=== PATIENT | female | born 1960 | race Caucasian/White ===

== ENCOUNTER 2016-04-01 17:51 | Emergency (ER) | payer MEDICARE, MEDICAID ==
[~2016-04-01] VITALS: Ht 160 cm; Wt 77.1 kg
[~2016-04-01 17:51] MED LIST: ACET-1697 PO; ACET-2267 PO; ACET325T49 PO; ALBU17AE23 IH; ALPR0.254 PO; AMOX1TAB12 PO; ARMO250T2 PO; ARMO250T3 PO; ASPI-983 PO; ATOR20TA66 PO; BENZ200C25 PO; BISA5TAB PO; CARV3.122 PO; CEFD300C3 PO; CEPH500C PO; CIPR-225 PO; CIPR500T21 PO; CLOP75TA28 PO; CLOP75TA69 PO; CYCL10TA9; CYCL10TA9 PO; DIPH1TAB25 PO; ENAL2.5T PO; EST025TD; ESTR100P26 MC; ESTR1TAB24 PO; ESTRIOL; ETD300C PO; FENO134C PO; FENO134C2 PO; HYDR-2997 PO; HYDR-34 PO; HYDR-3720 PO; HYDR-3729 PO; HYDR-3875 PO; HYDR118S10 PO; HYDR15SO8 PO; HYDR1TAB PO; HYDR200T46 PO; HYDR25TA4 PO; IBUP-1780 PO; IBUP800T26 PO; LANS15CA PO; LANS30CA PO; LATA2.5D5 OU; LEVO500T69 PO; MELO-195 PO; MELO-198 PO; MELO15TA39 PO; MELO7.5T PO; METO-333 PO; METO10TA3 PO; NICO4GUM31 BC; NITR-33 PO; NITR0.4T39 SL; OLME20TA21 PO; ONDA4TAB11 PO; OXYC-109; PANT40SU PO; PANT40TA PO; PANT40TA2 PO; PANT40TA3 PO; POTA20TA8 PO; PRD10T PO; PRD20T PO; PRED10TA PO; PRM25T PO; PROM25TA14 PO; RT-ALBUINH INH; TAMS0.4C98 PO; TETRACAINESUCKERS MT; TOPI25TA2 PO; TOPI50TA13 PO; TRM50T PO; VENL37.56 PO; VENL75CA55 PO; VENL75CA93 PO; [UNRECOGNIZED DRUG - OTHER]; [UNRECOGNIZED DRUG - OTHER]
--- OUTSIDE RECORDS SUMMARY | 2016-04-01 17:58 | XMS REPORT | Continuity of Care Document ---
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 Name Role Phone NO, LOCAL PHYSICIAN PCP Unavailable Insurance Providers Payer Name Policy Number Subscriber Name Relationship [employer] [id number] Carol High 18 Self / Same As Patient [facility] [id number] Carol High 18 Self / Same As Patient Advance Directives Directive Response Recorded Date/Time Advance Directives No 05/30/14 1:49pm Health Care Power of Etched Circuit Processor No 05/30/14 1:49pm Organ Donor No 05/30/14 1:49pm Resuscitation Status Full Code 05/30/14 1:49pm Chief Complaint and Reason for Visit Chief Complaint SEPSIS HYPOTENSION HYPOVOLEMIA N/V/D ARF Reason for Visit Urinary tract infection Acute renal failure Diarrhea Sepsis Nausea and vomiting Abdominal pain Hypotension Hypovolemia Urinary tract infection Problems Medical Problems Problem Onset Date Status Rib pain on right side Unknown Active Upper respiratory infection Unknown Active Urinary tract infection Unknown Active Acute renal failure Unknown Active Diarrhea Unknown Active Sepsis Unknown Active Nausea and vomiting Unknown Active Abdominal pain Unknown Active Hypotension Unknown Active Hypovolemia Unknown Active Urinary tract infection Unknown Active Medications Medication Dose Route Sig Days/Qty Instructions Order Date Discontinued Date Status Cyclobenzaprine HCl (Flexeril) 10/18/08 01/05/09 Discontinued Estradiol 10/18/08 01/05/09 Discontinued Meloxicam 7.5 Mg PO BEDTIME 10/18/08 05/30/14 Discontinued Acetaminophen/Hydrocodone Bitart 1 - 2 Each PO Q4HR PRN 20 Qty 01/05/09 Discontinued Promethazine HCl 1 Tab PO FOUR TIMES DAILY 20 Qty 10/19/08 01/05/09 Discontinued Venlafaxine HCl 37.5 Mg PO DAILY 01/05/09 05/30/14 Discontinued Oxycodone Hcl/Acetaminophen 01/05/09 06/10/09 Discontinued Promethazine HCl 1 Tab PO FOUR TIMES DAILY 20 Qty 01/05/09 06/10/09 Discontinued Cephalexin Monohydrate (Keflex) 1 Each PO THREE TIMES A DAY 11/04/09 11/16/09 Discontinued Acetaminophen/Hydrocodone Bitart 1 - 2 Each PO Q 4 - 6 HRS PRN 20 Qty 11/16/09 01/08/10 Discontinued Cyclobenzaprine HCl (Flexeril) 1 Each PO TID PRN 01/08/10 05/07/10 Discontinued Etodolac 300 Mg PO TWICE A DAY 14 Qty 01/08/10 05/07/10 Discontinued Albuterol 2 Puff IH EVERY 4HRS PRN SHORTNESS OF BREATH 05/09/10 Active Nitrofurantoin Macrocrystals 1 Each PO TWICE A DAY 14 Qty TAKE ONE BY MOUTH TWICE A 05/09/10 06/04/10 Discontinued Acetaminophen/Hydrocodone Bitart 1 - 2 Ea PO Q4HR PRN 20 Qty MOUTH EVERY 4HRS NEEDED FOR 05/09/10 09/08/12 Discontinued Nitrofurantoin Macrocrystals 1 Each PO TWICE A DAY 14 Qty 06/06/10 Discontinued Estriol 0.1 Gm MC 08/10/12 05/30/14 Discontinued Lansoprazole 15 Mg PO 08/10/12 02/08/14 Discontinued Hydroxychloroquine Sulfate 200 Mg PO TWICE A DAY 08/10/12 05/30/14 Discontinued [Estriol] 08/10/12 02/08/14 Discontinued Benzonatate (Tessalon Perles) 1 Each PO Q8HR PRN 20 Qty 08/10/1205/30 Discontinued Levofloxacin 1 Each PO DAILY 10 Days 08/10/12 02/08/14 Discontinued Prednisone 40 Mg PO DAILY 5 Days 08/10/12 05/30/14 Discontinued Tramadol HCl 50 Mg PO EVERY 4HRS 14 Qty 08/10/12 02/08/14 Discontinued Levofloxacin 1 Each PO DAILY 10 Qty 09/09/12 02/08/14 Discontinued [Benocar] 02/08/14 05/30/14 Discontinued [Mexotretholate] 02/08/14 05/30/14 Discontinued Acetaminophen/Hydrocodone Bitart 1 Each PO EVERY 6 HOURS PRN PAIN 14 Qty 02/08/14 05/30/14 Discontinued Estradiol 1 Mg PO BEDTIME 05/30/14 Active Meloxicam (Mobic) 15 Mg PO BEDTIME 05/30/14 06/02/14 Discontinued Pantoprazole Sodium 40 Mg PO BEDTIME 05/30/14 Active Lansoprazole 30 Mg PO BEDTIME 05/30/14 Active Prednisone 10 Mg PO DAILY 05/30/14 Active Venlafaxine Hcl 75 Mg PO BEDTIME 05/30/14 Active Olmesartan 20 Mg PO BEDTIME 05/30/14 Active Armodafinil 125 Mg PO 0900,1600 TAKES 1/2 (250MG) TABLET 05/30/14 Active Alprazolam 0.25 Mg PO TWICE A DAY PRN ANXIETY 05/30/14 Active Cyclobenzaprine HCl (Flexeril) 10 Mg PO THREE TIMES A DAY PRN MUSCLE SPASMS 05/30/14 Active Topiramate 25 Mg PO TWICE A DAY PRN HEADACHE 05/30/14 Active Metoclopramide HCl (Reglan) 10 Mg PO FOUR TIMES DAILY 05/30/1406/02 Discontinued Meloxicam (Mobic) 1 Each PO DAILY 30 Qty 06/02/14 Active Social History Social History Problem Response Recorded Date/Time Alcohol Use Past History 05/30/2014 1:54pm Recreational Drug Use Y THC, COCAINE, "SPEED" IN PAST--DENIES IV USE 2014 1:54pm Recent Foreign Travel No 05/30/2014 3:37pm Recent Infectious Disease Exposure No 05/30/2014 1:54pm Hospitalization with Isolation Denies 06/02/2014 3:25pm Sexually Transmitted Disease No 05/30/2014 1:54pm Smoking Status Current Everyday Smoker 05/30/2014 1:59pm Do you dip or chew tobacco? No 05/30/2014 1:59pm Query Response Start Date Stop Date Smoking Status Current Everyday Smoker Hospital Discharge Instructions Patient Instructions Physician Instructions Prescription: Transmitted to Pharmacy Patient Instructions: pt needs to follow up with her PCP - Dr. Arora in about 10 -14 days. pt needs to start drinking gatorade 8 ounces twice daily pt nees to make a follow up appt with Dr. Pearce for 4 weeks from discharge. Resume Normal Activity: Yes Discharge Diet: Avoid Fatty Foods Diet for 24 Hours: No Alcohol Diet After 24 Hours: Clear Liquid if Nauseous Drink 6-8 Glasses of Fluid/Day: Yes Driving Instructions: No Driving for 1 Week Avoid ALL Tobacco Products: Smoking of Any Kind, Second Hand Smoke Symptoms to Reoprt to DrArsalan: Appetite Changes, Fever Over 101 Degrees F, Diarrhea(Persistant), Dizziness/Fainting, Nausea/Vomiting, Shortness of Breath, Weight Gain Over 2 Pounds For Problems or Questions: Contact Your Physician, Go to Emergency Room, Go to Quick Care Infection Signs and Symptoms: Temperature Above 101 F Plan of Care Discharge Date 06/02/14 12:12pm Disposition 30 STILL A PATIENT Instructions/Education Provided SMOKING CESSATION Dehydration (DC) Prescriptions See Medications Section Referrals (Unspecified) (Patient Education) Weekly (Wednesdays) Reason(s) for Referral: Next class begins on June 29, 2014 at 5:30 Call [phone] if unable to attend. MAXIMUS PEARCE DO (Unspecified) 07/14/14 Address: [address] [place] [address]&[place] [address] Reason(s) for Referral: Follow up with Dr Pearce July 14, 2014 at 10:30 Functional Status Query Response Date Recorded Patient Orientation Person Place Time Situation June 02, 2014 3:25pm Comprehension Ability Understands Concepts June 01, 2014 8:30am Allergies, Adverse Reactions, Alerts Allergen Type Severity Reaction Status Last Updated morphine Allergy Mild N/V Active 12/15/08 Codeine Allergy Mild Active 10/18/08 Pentazocine Allergy Mild N/V, HEAD ACHE Active 12/15/08 Immunizations Name Given Type Date of Influenza Vaccine 12/29/13 Historical Tetanus Booster (TDap) Unknown Historical pneumococcal polysaccharide PPV23 06/02/14 Administered pneumococcal polysaccharide PPV23 06/02/14 Administered Vital Signs Acute Vital Signs Vital Response Date/Time Temperature (Fahrenheit) 97.3 degrees F (97.6 - 99.5) Temperature (Calculated Celsius) 36.60732 degrees C (36.4 - 37.5) Temperature Source Tympanic Pulse Rate (adult) 52 bpm (60 - 90) Respiratory Rate 22 bpm (12 - 24) O2 Sat by Pulse Oximetry 92 % (88 - 100) Blood Pressure 163/90 mm Hg Pain Pain Intensity 0 Height (Feet) 5 feet Height (Inches) 2.00 inches Height (Calculated Centimeters) 157.783900 cm Weight (Pounds) 176 pounds Weight (Ounces) 0.9 oz Weight (Calculated Grams) 39701.772 gm Weight (Calculated Kilograms) 79.322606 kilograms Calculated BMI 29.99 Results Laboratory Results Test Name Result Units Flags Reference Collection Date/Time Result Date/ Time Comments White Blood Count 16.6 10^3/uL H 4.3-11.0 06/02/2014 4:58am 06/02/2014 5: 13am Red Blood Count 4.04 10^6/uL L 4.35-5.85 06/02/2014 4:58am 06/02/2014 5: 13am Hemoglobin 13.2 G/DL 11.5-16.0 06/02/2014 4:58am 06/02/2014 5:13am Hematocrit 38 % 35-52 06/02/2014 4:58am 06/02/2014 5:13am Mean Corpuscular Volume 95 FL 80-99 06/02/2014 4:58am 06/02/2014 5: 13am Mean Corpuscular Hemoglobin 33 PG 25-34 06/02/2014 4:58am 06/02/2014 5: 13am Mean Corpuscular Hemoglobin Concent 35 G/DL 32-36 06/02/2014 4:58am 07/2014 5:13am Red Cell Distribution Width 13.8 % 10.0-14.5 06/02/2014 4:58am 2014 5:13am Platelet Count 164 10^3/uL 130-400 06/02/2014 4:58am 06/02/2014 5:13am Mean Platelet Volume 11.2 FL H 7.4-10.4 06/02/2014 4:58am 06/02/2014 5: 13am Neutrophils (%) (Auto) 86 % H 42-75 06/02/2014 4:58am 06/02/2014 5:13am Lymphocytes (%) (Auto) 8 % L 12-44 06/02/2014 4:58am 06/02/2014 5:13am Monocytes (%) (Auto) 5 % 0-12 06/02/2014 4:58am 06/02/2014 5:13am Eosinophils (%) (Auto) 0 % 0-10 06/02/2014 4:58am 06/02/2014 5:13am Basophils (%) (Auto) 0 % 0-10 06/02/2014 4:58am 06/02/2014 5:13am Neutrophils # (Auto) 14.4 X 10^3 H 1.8-7.8 06/02/2014 4:58am 06/02/2014 5 :13am Lymphocytes # (Auto) 1.4 X 10^3 1.0-4.0 06/02/2014 4:58am 06/02/2014 5: 13am Monocytes # (Auto) 0.8 X 10^3 0.0-1.0 06/02/2014 4:58am 06/02/2014 5: 13am Eosinophils # (Auto) 0.0 10^3/uL 0.0-0.3 06/02/2014 4:58am 06/02/2014 5 :13am Basophils # (Auto) 0.1 10^3/uL 0.0-0.1 06/02/2014 4:58am 06/02/2014 5: 13am Neutrophils % (Manual) 74 % 05/30/2014 10:05am 05/30/2014 10:50am Band Neutrophils 11 % 05/30/2014 10:05am 05/30/2014 10:50am Lymphocytes % (Manual) 8 % 05/30/2014 10:05am 05/30/2014 10:50am Monocytes % (Manual) 5 % 05/30/2014 10:05am 05/30/2014 10:50am Eosinophils % (Manual) 2 % 05/30/2014 10:05am 05/30/2014 10:50am Basophils % (Manual) 0 % 05/30/2014 10:05am 05/30/2014 10:50am Blood Morphology Comment NORMAL 05/30/2014 10:05am 05/30/2014 10: 50am Urine Color YELLOW 05/30/2014 11:35am 05/30/2014 12:02pm Urine Clarity SLIGHTLY CLOUDY 05/30/2014 11:35am 05/30/2014 12: 02pm Urine pH 5 5-9 05/30/2014 11:35am 05/30/2014 12:02pm Urine Specific [place] 1.020 1.016-1.022 05/30/2014 11:35am 2014 12:02pm Urine Protein 3+ * NEGATIVE 05/30/2014 11:35am 05/30/2014 12:02pm Urine Glucose (UA) NEGATIVE NEGATIVE 05/30/2014 11:35am 05/30/2014 12 :02pm Urine RBC (Auto) 2+ * NEGATIVE 05/30/2014 11:35am 05/30/2014 12:02pm Urine Ketones NEGATIVE NEGATIVE 05/30/2014 11:35am 05/30/2014 12: 02pm Urine Nitrite NEGATIVE NEGATIVE 05/30/2014 11:35am 05/30/2014 12: 02pm Urine Bilirubin 1+ * NEGATIVE 05/30/2014 11:35am 05/30/2014 12:05pm ICTOTEST NEGATIVE Urine Urobilinogen NORMAL MG/DL NORMAL 05/30/2014 11:35am 05/30/2014 12 :02pm Urine Leukocyte Esterase 1+ * NEGATIVE 05/30/2014 11:35am 05/30/2014 12 :02pm Urine RBC 0-2 /HPF 05/30/2014 11:35am 05/30/2014 12:02pm Urine WBC 5-10 /HPF * 05/30/2014 11:35am 05/30/2014 12:02pm Urine Bacteria FEW /HPF * 05/30/2014 11:35am 05/30/2014 12:02pm Urine Squamous Epithelial Cells 10-25 /HPF * 05/30/2014 11:35am 2014 12:02pm Urine Crystals NONE /LPF 05/30/2014 11:35am 05/30/2014 12:02pm Urine Casts PRESENT /LPF 05/30/2014 11:35am 05/30/2014 12:02pm Urine Granular Casts 2-5 /LPF * 05/30/2014 11:35am 05/30/2014 12:02pm Urine Mucus NEGATIVE /LPF 05/30/2014 11:35am 05/30/2014 12:02pm Urine Culture Indicated YES 05/30/2014 11:35am 05/30/2014 12:02pm Sodium Level 138 MMOL/L 135-145 06/02/2014 4:58am 06/02/2014 5:48am Potassium Level 4.8 MMOL/L 3.6-5.0 06/02/2014 4:58am 06/02/2014 5:48am Chloride Level 110 MMOL/L H 98-107 06/02/2014 4:58am 06/02/2014 5:48am Carbon Dioxide Level 18 MMOL/L L 21-32 06/02/2014 4:58am 06/02/2014 5: 48am Blood Urea Nitrogen 25 MG/DL H 7-18 06/02/2014 4:58am 06/02/2014 5:48am Creatinine 0.95 MG/DL 0.60-1.30 06/02/2014 4:58am 06/02/2014 5:48am BUN/Creatinine Ratio 26 06/02/2014 4:58am 06/02/2014 5:48am Estimat Glomerular Filtration Rate > 60 06/02/2014 4:58am 2014 5:48am GFR INTERPRETIVE DATA UNITS FOR ESTIMATED GFR (eGFR): mL/min/1.73 M2 REFERENCE RANGE FOR ESTIMATED GFR (eGFR) eGFR NORMAL eGFR >60 MODERATELY DECREASED eGFR 30-59 SEVERLY DECREASED eGFR 15-29 KIDNEY FAILURE <15 (OR DIALYSIS) Glucose Level 139 MG/DL H 70-105 06/02/2014 4:58am 06/02/2014 5:48am Calcium Level 9.0 MG/DL 8.5-10.1 06/02/2014 4:58am 06/02/2014 5:48am Phosphorus Level 2.9 MG/DL 2.3-4.7 06/02/2014 4:58am 06/02/2014 5:48am Magnesium Level 2.1 MG/DL 1.8-2.4 06/02/2014 4:58am 06/02/2014 5:48am Total Bilirubin 0.8 MG/DL 0.1-1.0 06/01/2014 5:39am 06/01/2014 6:58am Direct Bilirubin 0.4 MG/DL H 0.0-0.3 06/01/2014 5:39am 06/01/2014 6:58am Indirect Bilirubin 0.4 MG/DL 06/01/2014 5:39am 06/01/2014 6:58am Alkaline Phosphatase 252 U/L H 40-136 06/01/2014 5:39am 06/01/2014 6: 58am Aspartate Amino Transf (AST/SGOT) 58 U/L H 5-34 06/01/2014 5:39am 2014 6:58am Alanine Aminotransferase (ALT/SGPT) 114 U/L H 0-55 06/01/2014 5:39am 06/2014 6:58am Total Creatine Kinase 132 U/L 29-168 05/31/2014 5:05am 05/31/2014 5: 41am Total Protein 5.5 G/DL L 6.4-8.2 06/01/2014 5:39am 06/01/2014 6:58am Albumin 2.8 G/DL L 3.2-4.5 06/01/2014 5:39am 06/01/2014 6:58am Lipase 26 U/L 8-78 05/30/2014 10:05am 05/30/2014 10:48am Lactic Acid Level 1.1 MMOL/L 0.5-2.2 05/30/2014 10:05am 05/30/2014 10: 35am Vancomycin Level Trough 19.1 UG/ML 10.0-20.0 06/01/2014 9:15am 2014 9:47am Procedures No known history of procedures. Encounters Encounter Location Date/Time Admitted Inpatient [facility] 05/30/14 12:41pm Recent Diagnosis Urinary tract infection Acute renal failure Diarrhea Sepsis Nausea and vomiting Abdominal pain Hypotension Hypovolemia Urinary tract infection
--- NOTE | 2016-04-01 18:00 | ED Chest Pain ---
General Stated Complaint: CP,SOA Source: patient, RN notes reviewed Exam Limitations: no limitations History of Present Illness Time seen by provider: 18:00 Initial Comments chest pain and dyspnea since this AM Timing/Duration: intermittent, other (10 hours) Severity/Quality: moderate (09/07) Location: other (right side chest) Radiation: no radiation Activities at Onset: other (coughing) Prior CP/Workup: no prior cardiac workup Modifying Factors: worse with coughing, improves with other (none) ASA po FRICKERTRON CHECKER: No NTG SL FRICKERTRON CHECKER: No Associated Symptoms: shortness of breath Allergies and Home Medications Allergies Coded Allergies: sulfamethoxazole (Verified Allergy, Intermediate, VOMITTING/MIGRAINE, ) trimethoprim (Verified Allergy, Intermediate, VOMITTING/MIGRAINE, 03/14/16 ) codeine (Unverified Allergy, Mild, TAKES HYDROCODONE AT HOME, 07/04/14) morphine (Unverified Adverse Reaction, Mild, N/V, 07/04/14) pentazocine (Unverified Adverse Reaction, Mild, N/V, HEAD ACHE, 07/04/14) Home Medications Acetaminophen 325 Mg Tablet 650 MG PO Q4H PRN PRN PAIN (Reported) TAKES 2 (325 MG) TABLETS Albuterol Sulfate 18 Gm Hfa.aer.ad 2 PUFF INH EVERY 4-6 HOURS PRN PRN SHORTNESS OF BREATH (Reported) Atorvastatin Calcium 20 Mg Tablet 20 MG PO BID (Reported) Bisacodyl 5 Mg Tablet 5 MG PO PRN PRN PRN CONSTIPATION (Reported) Cefdinir 300 Mg Capsule #14 300 MG PO BID Prescribed by: ADAMS LOREDO on 04/01/162043 Ciprofloxacin HCl 500 Mg Tablet #14 500 MG PO BID Prescribed by: LISA VIEIRA on 03/19/16 1500 Enalapril Maleate 2.5 Mg Tablet 2.5 MG PO DAILY (Reported) Estradiol 1 Mg Tablet 1 MG PO HS (Reported) Fenofibrate,Micronized 134 Mg Capsule 134 MG PO HS (Reported) Hydrochlorothiazide 25 Mg Tablet 25 MG PO DAILY (Reported) Hydrocodone/Acetaminophen 1 Each Tablet #30 1-2 EACH PO Q4H PRN PRN PAIN Prescribed by: LISA VIEIRA on 03/19/16 1500 Hydrocodone/Acetaminophen 15 Ml Solution #120 10 ML PO Q4H PRN PRN PAIN Prescribed by: MURALI TRIVEDI on 03/20/16 1429 Lansoprazole 30 Mg Capsule.dr 30 MG PO DAILY (Reported) Meloxicam 15 Mg Tablet 15 MG PO HS (Reported) Metoprolol Tartrate 25 Mg Tablet 12.5 MG PO BID (Reported) TAKES 1/2 OF A (25 MG) TABLET Nicotine Polacrilex 4 Mg Gum 4 MG BC PRN (Reported) Nitroglycerin 0.4 Mg Tab.subl 0.4 MG SL PRN PRN PRN CHEST PAIN (Reported) Potassium Chloride 20 Meq Tab.er.prt 40 MEQ PO BID (Reported) Prednisone 10 Mg Tab 10 MG PO DAILY (Reported) Promethazine HCl 25 Mg Tablet 25 MG PO Q6H PRN PRN NAUSEA/VOMITING (Reported) Tamsulosin HCl 0.4 Mg Cap #14 0.4 MG PO DAILY Prescribed by: LISA VIEIRA on 03/19/16 1500 Tetracaine Sucker Ea #2 1 EA MT UD PRN PRN PAIN Tetracain Suckers These suckers are custom made and require a prescription. Moisten the sucker first and then suck on it gently as far back in the mouth as possible for 2-3 days. You can repeadt it in about an hour. This will take the edge off but not completely numb the throat. Prescribed by: MURALI TRIVEDI on 03/20/16 1429 Topiramate 50 Mg Tablet 50 MG PO BID (Reported) Venlafaxine HCl 75 Mg Cap.er.24h 75 MG PO HS (Reported) Review of Systems Constitutional: see HPI Respiratory: See HPI Cough SOA at Rest Cardiovascular: See HPI Chest Pain All Other Systems Reviewed Negative Unless Noted: Yes (Negative excepted noted.) Past Kggcmcw-Knxwcs-Xvlrtw Hx Patient Social History Type Used: Cigarettes Former Smoker/When Quit: Recent Hopitalizations: Yes (03/19/16 LITHOTRIPSY) Immunizations Up To Date Tetanus Booster (TDap): More than 5yrs PED Vaccines UTD: No Date of Pneumonia Vaccine: May 01, 2015 Date of Influenza Vaccine: Feb 21, 2016 Seasonal Allergies Seasonal Allergies: Yes Surgeries HX Surgeries: Yes Surgeries: Abdominal, Appendectomy, Bowel Surgery, Breast, Cardiac, Coronary Stent, Gallbladder, Hysterectomy, Renal Respiratory Hx Respiratory Disorders: Yes Respiratory Disorders: Asthma, COPD Cardiovascular Hx Cardiac Disorders: Yes (STENT PLACED OCTOBER 2014 AFTER [place]) Cardiac Disorders: Coronary Artery Disease, Heart Attack, High Cholesterol, Hypertension Neurological Hx Neurological Disorders: Yes (SEIZURE: 10 years ago last one) Neurological Disorders: Seizure Disorder 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 System Hx 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 Disorders: No Sexually Transmitted Disease: No HIV/AIDS: No 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 Disorders: Denies RECORDS MANAGEMENT MANAGER History: Hysterectomy Genitourinary Hx Genitourinary Disorders: Yes Genitourinary Disorders: Bladder Infection, Kidney Stones, Renal Failure Gastrointestinal Hx Gastrointestinal Disorders: Yes Gastrointestinal Disorders: Diverticulosis, Irritable Bowel Musculoskeletal Hx Musculoskeletal Disorders: Yes Musculoskeletal Disorders: Arthritis, Fibromyalgia, Rheumatoid Arthritis Endocrine Hx Endocrine Disorders: No HEENT HX ENT Disorders: Yes HEENT Disorders: Glaucoma Loss of Vision: Denies Hearing Impairment: Denies Cancer Hx Cancer: No Psychosocial Hx Psychiatric Problems: Yes Behavioral Health Disorders: Anxiety, Bipolar, Depression Integumentary HX Skin/Integumentary Disorder: Yes (SHINGLES) Blood Transfusions Hx Blood Disorders: No Adverse Reaction to a Blood Tr: No Family Medical History Significant Family History: No Pertinent Family Hx, Cancer Family Medial History: CANCER 19 MOTHER (PATIENT DOES NOT KNOW LOCATION) Physical Exam Vital Signs Vital Sign - Last 12Hours 04/01/16 04/01/16 17:52 22:14 Temp 98.5 Pulse 102 Resp 20 B/P 132/85 Pulse Ox 94 O2 Delivery Room Air Capillary Refill : General Appearance: No Apparent Distress WD/WN Neck: Normal Inspection Respiratory: No Respiratory Distress Decreased Breath Sounds Cardiovascular: Tachycardia Rectal: Deferred Neurologic/Psychiatric: Alert Oriented x3 No Motor/Sensory Deficits Skin: Warm/Dry Date of ETT Placement: Feb 11, 2016 Time of ETT Placement: 1341 Progress/Results/Core Measures Results/Orders Lab Results Laboratory Tests Test 04/01/16 17:58 04/01/16 19:55 Range/Units Alanine Aminotransferase (ALT/SGPT) 14 0-55 U/L Albumin 4.1 3.2-4.5 G/DL Alkaline Phosphatase 69 40-136 U/L Anion Gap 11 5-14 MMOL/L Aspartate Amino Transf (AST/SGOT) 17 5-34 U/L B-Type Natriuretic Peptide 52.5 <100.0 PG/ML BUN/Creatinine Ratio 18 Basophils # (Auto) 0.1 0.0-0.1 10^3/uL Basophils (%) (Auto) 1 0-10 % Blood Urea Nitrogen 43 H 7-18 MG/DL Calcium Level 9.0 8.5-10.1 MG/DL Carbon Dioxide Level 18 L 21-32 MMOL/L Chloride Level 109 H 98-107 MMOL/L Creatinine 2.33 H 0.60-1.30 MG/DL D-Dimer 1.44 H 0.00-0.49 UG/ML Eosinophils # (Auto) 0.4 H 0.0-0.3 10^3/uL Eosinophils (%) (Auto) 3 0-10 % Estimat Glomerular Filtration Rate 22 Glucose Level 100 70-105 MG/DL Hematocrit 36 35-52 % Hemoglobin 12.2 11.5-16.0 G/DL Lipase 90 H 8-78 U/L Lymphocytes # (Auto) 1.9 1.0-4.0 X 10^3 Lymphocytes (%) (Auto) 14 12-44 % Magnesium Level 2.0 1.8-2.4 MG/DL Mean Corpuscular Hemoglobin 30 25-34 PG Mean Corpuscular Hemoglobin Concent 34 32-36 G/DL Mean Corpuscular Volume 88 80-99 FL Mean Platelet Volume 9.5 7.4-10.4 FL Monocytes # (Auto) 1.0 0.0-1.0 X 10^3 Monocytes (%) (Auto) 7 0-12 % Neutrophils # (Auto) 9.8 H 1.8-7.8 X 10^3 Neutrophils (%) (Auto) 75 42-75 % Platelet Count 420 H 130-400 10^3/uL Potassium Level 3.9 3.6-5.0 MMOL/L Red Blood Count 4.07 L 4.35-5.85 10^6/uL Red Cell Distribution Width 14.1 10.0-14.5 % Sodium Level 138 135-145 MMOL/L Total Bilirubin 0.3 0.1-1.0 MG/DL Total Protein 7.2 6.4-8.2 G/DL Troponin I < 0.30 <0.30 NG/ML White Blood Count 13.1 H 4.3-11.0 10^3/uL Urine Bacteria FEW H /HPF Urine Bilirubin NEGATIVE NEGATIVE Urine Casts NONE /LPF Urine Clarity SLIGHTLY CLOUDY Urine Color YELLOW Urine Crystals NONE /LPF Urine Culture Indicated YES Urine Glucose (UA) NEGATIVE NEGATIVE Urine Ketones NEGATIVE NEGATIVE Urine Leukocyte Esterase 3+ H NEGATIVE Urine Mucus NEGATIVE /LPF Urine Nitrite NEGATIVE NEGATIVE Urine Protein 1+ H NEGATIVE Urine RBC 10-25 H /HPF Urine RBC (Auto) 2+ H NEGATIVE Urine Specific [place] 1.010 L 1.016-1.022 Urine Squamous Epithelial Cells 0-2 /HPF Urine Urobilinogen NORMAL NORMAL MG/DL Urine WBC 50-100 H /HPF Urine Yeast FEW H /HPF Urine pH 6.5 5-9 Micro Results Microbiology 04/01/16 Urine Culture - Final, Complete Enterococcus Faecium Yeast Species My Orders Orders-ADAMS LOREDO DO Saline Lock/Iv-Start (04/01/16 18:01) Ekg Tracing (04/01/16 18:01) BNP (04/01/16 18:01) Cbc With Automated Diff (04/01/16 18:01) Comprehensive Metabolic Panel (04/01/16 18:01) Fibrin Degradation Products (04/01/16 18:01) Lipase (04/01/16 18:01) Magnesium (04/01/16 18:01) Troponin I (04/01/16 18:01) Ua Culture If Indicated (04/01/16 18:01) Chest 1 View, Ap/Pa Only (04/01/16 18:01) Saline Lock/Iv-Start (04/01/16 19:06) Ns Iv 1000 Ml (Sodium Chloride 0.9%) (04/01/16 19:06) Urine Culture (04/01/16 19:55) Dexamethasone Pf Injection (Decadron Pf (04/01/16 20:45) Ceftriaxone Injection (Rocephin Injectio (04/01/16 20:45) Hydrocodone/Apap 5/325 Tablet (Lortab 5 (04/01/16 20:38) Ceftriaxone Injection (Rocephin Injectio (04/01/16 21:30) Normal Saline (Mar Mini) (Ns (Mar (04/01/16 21:30) Ondansetron Oral Dissolve Tab (Zofran (04/01/16 21:59) Ondansetron Oral Dissolve Tab (Zofran (04/01/16 22:15) Im/Sub-Q Injection Non-Ab Ed (04/01/16 ) Iv Push Risk Modeler Ed (04/01/16 ) Medications Given in ED Vital Signs/I&O Vital Sign - Last 12Hours 04/01/16 04/01/16 17:52 22:14 Temp 98.5 Pulse 102 81 Resp 20 20 B/P 132/85 Pulse Ox 94 99 O2 Delivery Room Air Progress Note : Progress Note Discussed patient c/ Dr. Gomez, the Hospitalist broadcast operations manager. He didn't feel the patient needed admission @ this time and recommended she follow up c/ her PCP later this week. Has an appointment c/ Dr. Jin in the AM. She will ask him to arrange follow up on her renal fxn. ECG Initial ECG Impression Date: Apr 01, 2016 Initial ECG Impression Time: 17:56 Initial ECG Rate: 98 Initial ECG Impression: Nonspecific Changes (accelerated junctional; ? RVH; probable inf. infarct not on 03/13/16 EKG) Departure Impression Impression: Primary Impression: Non-cardiac chest pain Additional Impressions: COPD (chronic obstructive pulmonary disease) UTI (urinary tract infection) Acute renal insufficiency Disposition: HOME, SELF-CARE Condition: Stable Departure-Patient Inst. Decision time for Depature: 20:41 Referrals: EULOGIO JIN MD Patient Instructions: COPD Including Emphysema (DC), Chest Pain That Is Not Caused by the Heart (DC), Urinary Tract Infection, Adult (DC) Add. Discharge Instructions: KEEP APPOINTMENT WITH DR. JIN FOR TOMORROW SCHEDULED. NEED RENAL FUNCTION RECHECKED END OF THE WEEK. Scripts Cefdinir 300 Mg [id number] Mg PO BID UTI #14 CAP Ref 0 Prov:ADAMS LOREDO DO 04/01/16 ADAMS LOREDO DO Apr 01, 2016 18:00
[2016-04-01 18:09] LABS: BASOPHILS # (AUTO) 0.1 10^3/uL (0.0-0.1); BASOPHILS % (AUTO) 1 % (0-10); EOSINOPHILS # (AUTO) 0.4 10^3/uL (0.0-0.3); EOSINOPHILS % (AUTO) 3 % (0-10); LYMPHOCYTES # (AUTO) 1.9 X 10^3 (1.0-4.0); LYMPHOCYTES % (AUTO) 14 % (12-44); MEAN CORPUSCULAR HEMOGLOBIN 30 PG (25-34); MEAN CORPUSCULAR HGB CONC 34 G/DL (32-36); MEAN CORPUSCULAR VOLUME 88 FL (80-99); MEAN PLATELET VOLUME 9.5 FL (7.4-10.4); MONOCYTES % (AUTO) 7 % (0-12); NEUTROPHILS # (AUTO) 9.8 X 10^3 (1.8-7.8); NEUTROPHILS % (AUTO) 75 % (42-75); PLATELET COUNT 420 10^3/uL (130-400); RED BLOOD COUNT 4.07 10^6/uL (4.35-5.85); RED CELL DISTRIBUTION WIDTH 14.1 % (10.0-14.5); WHITE BLOOD COUNT 13.1 10^3/uL (4.3-11.0)
[2016-04-01 18:25] LABS: ALANINE AMINOTRANSFERASE 14 U/L (0-55); ALBUMIN 4.1 G/DL (3.2-4.5); ANION GAP 11 MMOL/L (5-14); ASPARTATE AMINO TRANSFERASE 17 U/L (5-34); BILIRUBIN,TOTAL 0.3 MG/DL (0.1-1.0); BLOOD UREA NITROGEN 43 MG/DL (7-18); BUN/CREATININE RATIO 18; CARBON DIOXIDE 18 MMOL/L (21-32); CHLORIDE 109 MMOL/L (98-107); CREATININE SERUM 2.33 MG/DL (0.60-1.30); GFR ESTIMATED 22; GLUCOSE 100 MG/DL (70-105); LIPASE 90 U/L (8-78); POTASSIUM 3.9 MMOL/L (3.6-5.0); SODIUM 138 MMOL/L (135-145); TOTAL PROTEIN 7.2 G/DL (6.4-8.2)
[2016-04-01 18:31] LABS: TROPONIN I < 0.30 NG/ML (<0.30)
--- NOTE | 2016-04-01 18:42 | Diagnostic Imaging Report ---
INDICATION: Pressure in chest and shortness of air since earlier in the day.. TECHNIQUE: Single view chest 6:31 PM. CORRELATION STUDY: 03/13/2016 FINDINGS: Heart size, mediastinal configuration, and vasculature overall relatively stable and unremarkable. Lungs are clear of infiltrate. There are innumerable punctate nodules noted over both lung nam likely reflecting granulomas. Overall findings appearing stable. Lung nam do appear to be slightly hyperinflated. IMPRESSION: 1. Stable portable chest demonstrates no acute abnormality. Likely changes of COPD. Dictated by: Dictated on workstation # [id number]
[2016-04-01] MEDS ORDERED: NS IV 1000 ML 1,000 ML IV ONE (19:06)
[2016-04-01 20:13] LABS: BILIRUBIN,URINE NEGATIVE (NEGATIVE); KETONES,URINE NEGATIVE (NEGATIVE); LEUKOCYTE ESTERASE ,URINE 3+ (NEGATIVE); NITRITE,URINE NEGATIVE (NEGATIVE); PH,URINE 6.5 (5-9); PROTEIN,URINE 1+ (NEGATIVE); UROBILINOGEN,URINE NORMAL (NORMAL)
[2016-04-01 20:25] LABS: SQUAMOUS EPITHELIAL CELL,UR 0-2 /HPF; WBC,URINE 50-100 /HPF; YEAST,URINE FEW /HPF
[2016-04-01] MEDS ORDERED: HYDROcodone/APAP 5 MG/325 MG (LORTAB) TAB PO STA (20:38)
[2016-04-01] MEDS ORDERED: CEFD300C3 PO (20:44)
[2016-04-01] MEDS ORDERED: cefTRIAXone INJECTION 1,000 MG in NORMAL SALINE (BAXTER MINI) 50 ML IV ONE (20:45)
[2016-04-01] MEDS ORDERED: DEXAMETHASONE PF 10 MG/ML (DECADRON) VIAL IM ONE (20:45)
[2016-04-01] MEDS ORDERED: NORMAL SALINE (BAXTER MINI) 50 ML IV ONE (21:30)
[2016-04-01] MEDS ORDERED: cefTRIAXone 1 GM (ROCEPHIN) VIAL ONE (21:30)
[2016-04-01] MEDS ORDERED: ONDANSETRON 4 MG (ZOFRAN) ORAL DISSOLVE TAB ONE (21:59)
[2016-04-01 22:14] VITALS: BP 112/80
[2016-04-01] MEDS ORDERED: ONDANSETRON 4 MG (ZOFRAN) ORAL DISSOLVE TAB PO ONE (22:15)
[2016-04-03] MEDS ORDERED: LACTATED RINGERS 1,000 ML IV PRN (08:04)
[2016-04-03] MEDS ORDERED: FAMOTIDINE 20MG/2ML IV (PEPCID) IV ONE (08:15)
[2016-04-03] MEDS ORDERED: ONDANSETRON 4 MG/2 ML (SDV) Z0FRAN IV ONE (08:15)
== END 2016-04-01 22:14 | disposition home or self-care (01) ==
LOC: EDUNIT# 17:51 → ER 17:53
DX: R07.89 Other chest pain (principal); J44.9 Chronic obstructive pulmonary disease, unspecified; N39.0 Urinary tract infection, site not specified; N28.9 Disorder of kidney and ureter, unspecified; I10 Essential (primary) hypertension; Z79.899 Other long term (current) drug therapy; Z95.5 Presence of coronary angioplasty implant and graft
CPT/HCPCS: 36415; 71010; 80053; 81000; 83690; 83735; 83880; 84484; 85025; 85379; 87077; 87088; 87186; 93005; 96361; 96372; 96374

== ENCOUNTER → 2016-04-02 | Outpatient (CLI) | payer MEDICARE, MEDICAID ==
[~2016-04-02] MED LIST changes: +ACET-93 PO; +LEVO750T39 PO; +NITR100C PO; +ONDA4TAB10 PO; +ONDA8TAB13 PO; +ONDA8TAB9 PO
--- OUTSIDE RECORDS SUMMARY | 2016-04-02 14:28 | XMS REPORT | Continuity of Care Document ---
Author Author [facility] Organization [facility] Address Unknown Phone Unavailable Care Team Providers Care Growth Hacker Name Role Phone NO, LOCAL PHYSICIAN PCP Unavailable Insurance Providers Payer Name Policy Number Subscriber Name Relationship Wps Medicare [id number] Carol High 18 Self / Same As Patient [facility] [id number] Carol High 18 Self / Same As Patient Advance Directives Directive Response Recorded Date/Time Advance Directives No 05/30/14 1:49pm Health Care Power of Claims Supervisor No 05/30/14 1:49pm Organ Donor No 05/30/14 [...] on June 29, 2014 at 5:30 Call [phone] if unable to attend. MAXIMUS PEARCE DO (Unspecified) 07/14/14 Address: [address] [place] [address]&[place] [address] Reason(s) for Referral: Follow up [...] F (97.6 - 99.5) Temperature (Calculated Celsius) 36.49258 degrees C (36.4 - 37.5) Temperature Source Tympanic Pulse Rate (adult) 52 bpm (60 - 90) Respiratory Rate 22 bpm (12 - 24) O2 Sat by Pulse Oximetry 92 % (88 - 100) Blood Pressure 163/90 mm Hg Pain Pain Intensity 0 Height (Feet) 5 feet Height (Inches) 2.00 inches Height (Calculated Centimeters) 157.207879 cm Weight (Pounds) 176 pounds Weight (Ounces) 0.9 oz Weight (Calculated Grams) 24433.772 gm Weight (Calculated Kilograms) 79.651513 kilograms Calculated BMI 29.99 Results Laboratory Results [...] 5-9 05/30/2014 11:35am 05/30/2014 12:02pm Urine Specific [place] 1.020 1.016-1.022 05/30/2014 11:35am 2014 12:02pm Urine [...] Encounters Encounter Location Date/Time Admitted Inpatient Via [facility] 05/30/14 12:41pm Recent Diagnosis Urinary tract infection Acute renal failure Diarrhea Sepsis Nausea and vomiting Abdominal pain Hypotension Hypovolemia Urinary tract infection
--- NOTE | 2016-04-02 16:55 | Diagnostic Imaging Report ---
KUB. INDICATION: Bilateral stones follow-up. COMPARISON: 03/19/2016. FINDINGS: There is a 7 mm stone in the lower pole of the right kidney. There is no definite ureteric stone on either side and no definite left kidney stone seen. A left ureteric stent is in place. There are surgical clips in the upper mid pelvis and suggestion of retraction of the left ureter in the mid sacrum level medially, may relate to scarring. IMPRESSION: 7 mm lower pole right kidney stone. Dictated by: Dictated on workstation # [id number]
== END ==
LOC: RAD 14:23
PROVIDERS: ATTEND Urology
DX: Z98.890 Other specified postprocedural states (principal); N20.1 Calculus of ureter
CPT/HCPCS: 74000

== ENCOUNTER 2016-04-03 06:31 | Day surgery (SDC) | payer MEDICARE, MEDICAID ==
[~2016-04-03] VITALS: Ht 157.5 cm; Wt 71.7 kg
[~2016-04-03 06:31] MED LIST changes: -ACET-93 PO; -LEVO750T39 PO; -NITR100C PO; -ONDA4TAB10 PO; -ONDA8TAB13 PO; -ONDA8TAB9 PO
--- OUTSIDE RECORDS SUMMARY | 2016-04-03 06:35 | XMS REPORT | Continuity of Care Document ---
Author Author [facility] Organization [facility] Address Unknown Phone Unavailable Care Team Providers Care Apprenticeship Consultant Name Role Phone NO, LOCAL PHYSICIAN PCP Unavailable Insurance Providers Payer Name Policy Number Subscriber Name Relationship Wps Medicare [id number] Carol High 18 Self / Same As Patient [facility] [id number] Carol High 18 Self / Same As Patient Advance Directives Directive Response Recorded Date/Time Advance Directives No 05/30/14 1:49pm Health Care Power of Eyelet Machine Operator No 05/30/14 1:49pm Organ Donor No 05/30/14 [...] on June 29, 2014 at 5:30 Call [phone] if unable to attend. MAXIMUS PEARCE DO (Unspecified) 07/14/14 Address: [address] [place] [address]&[place] [address] Reason(s) for Referral: Follow up [...] F (97.6 - 99.5) Temperature (Calculated Celsius) 36.84520 degrees C (36.4 - 37.5) Temperature Source Tympanic Pulse Rate (adult) 52 bpm (60 - 90) Respiratory Rate 22 bpm (12 - 24) O2 Sat by Pulse Oximetry 92 % (88 - 100) Blood Pressure 163/90 mm Hg Pain Pain Intensity 0 Height (Feet) 5 feet Height (Inches) 2.00 inches Height (Calculated Centimeters) 157.864872 cm Weight (Pounds) 176 pounds Weight (Ounces) 0.9 oz Weight (Calculated Grams) 24520.772 gm Weight (Calculated Kilograms) 79.467692 kilograms Calculated BMI 29.99 Results Laboratory Results [...] 5-9 05/30/2014 11:35am 05/30/2014 12:02pm Urine Specific [place] 1.020 1.016-1.022 05/30/2014 11:35am 2014 12:02pm Urine [...] Encounters Encounter Location Date/Time Admitted Inpatient Via [facility] 05/30/14 12:41pm Recent Diagnosis Urinary tract infection Acute renal failure Diarrhea Sepsis Nausea and vomiting Abdominal pain Hypotension Hypovolemia Urinary tract infection
--- OUTSIDE RECORDS SUMMARY | 2016-04-03 06:36 | XMS REPORT | Continuity of Care Document ---
Author Author [facility] Organization [facility] Address Unknown Phone Unavailable Care Team Providers Care Cia Agent Name Role Phone NO, LOCAL PHYSICIAN PCP Unavailable Insurance Providers Payer Name Policy Number Subscriber Name Relationship Wps Medicare [id number] Carol High 18 Self / Same As Patient [facility] [id number] Carol High 18 Self / Same As Patient Advance Directives Directive Response Recorded Date/Time Advance Directives No 05/30/14 1:49pm Health Care Power of Typewriter Tester No 05/30/14 1:49pm Organ Donor No 05/30/14 [...] on June 29, 2014 at 5:30 Call [phone] if unable to attend. MAXIMUS PEARCE DO (Unspecified) 07/14/14 Address: [address] [place] [address]&[place] [address] Reason(s) for Referral: Follow up [...] F (97.6 - 99.5) Temperature (Calculated Celsius) 36.29218 degrees C (36.4 - 37.5) Temperature Source Tympanic Pulse Rate (adult) 52 bpm (60 - 90) Respiratory Rate 22 bpm (12 - 24) O2 Sat by Pulse Oximetry 92 % (88 - 100) Blood Pressure 163/90 mm Hg Pain Pain Intensity 0 Height (Feet) 5 feet Height (Inches) 2.00 inches Height (Calculated Centimeters) 157.637802 cm Weight (Pounds) 176 pounds Weight (Ounces) 0.9 oz Weight (Calculated Grams) 61483.772 gm Weight (Calculated Kilograms) 79.211870 kilograms Calculated BMI 29.99 Results Laboratory Results [...] 5-9 05/30/2014 11:35am 05/30/2014 12:02pm Urine Specific [place] 1.020 1.016-1.022 05/30/2014 11:35am 2014 12:02pm Urine [...] Encounters Encounter Location Date/Time Admitted Inpatient Via [facility] 05/30/14 12:41pm Recent Diagnosis Urinary tract infection Acute renal failure Diarrhea Sepsis Nausea and vomiting Abdominal pain Hypotension Hypovolemia Urinary tract infection
[2016-04-03] MEDS ORDERED: NORMAL SALINE (BAXTER MINI) 50 ML IV ONE (06:57)
[2016-04-03] MEDS ORDERED: cefTRIAXone 1 GM (ROCEPHIN) VIAL ONE (06:57)
[2016-04-03 07:00] VITALS: BP 134/68
[2016-04-03] MEDS ORDERED: ONDANSETRON 4 MG/2 ML (SDV) Z0FRAN ONE ×2 (07:00→11:25)
[2016-04-03] MEDS: LACTATED RINGERS 1,000 ML IV SCH ×2 (07:00→12:23)
[2016-04-03] MEDS ORDERED: cefTRIAXone 1 GM/NS 50 ML IVPB IV ONE ×2 (07:15)
--- NOTE | 2016-04-03 07:21 | Progress Note-Pre Operative ---
Pre-Operative Progress Note H&P Reviewed The H&P was reviewed, patient examined and no changes noted. Date H&P Reviewed: Apr 03, 2016 Time H&P Reviewed: 07:20 Pre-Operative Diagnosis: Rt renal stone EULOGIO JIN MD Apr 03, 2016 7:21 am
[2016-04-03] MEDS ORDERED: FAMOTIDINE 20MG/2ML IV (PEPCID) ONE (07:58)
--- NOTE | 2016-04-03 08:16 | Diagnostic Imaging Report ---
EXAMINATION: KUB. INDICATION: Right sided stone COMPARISON: 04/02/16. FINDINGS: There is a 7 mm stone in the right renal pelvis overlapping with the proximal loop of the right ureteric stent. There is no other definite urinary tract stone identified. Phlebolith in the right side of the pelvis is seen. There is a traction of the left ureter visible because of the ureteric stent in place into the midline adjacent to surgical clips suggestive of fibrotic changes. IMPRESSION: 7 mm right renal pelvis stone. Dictated by: Dictated on workstation # [id number]
[2016-04-03] MEDS ORDERED: SEVOFLURANE (ULTANE) 15 ML INHAL SOLN ONE (11:25)
[2016-04-03] MEDS ORDERED: MIDAZOLAM 2 MG/2 ML (VERSED) VIAL ONE (11:25)
[2016-04-03] MEDS ORDERED: LIDOCAINE PF 2% 10 ML (XYLOCAINE) AMP ONE (11:25)
[2016-04-03] MEDS ORDERED: fentaNYL INJECTION 100 MCG/2 ML AMP ONE ×2 (11:25→12:48)
[2016-04-03] MEDS ORDERED: LACTATED RINGERS 1,000 ML IV ONE ×2 (11:25→12:11)
[2016-04-03] MEDS ORDERED: proPOfol 200 MG/20 ML (DIPRIVAN) VIAL IV ONE (11:25)
[2016-04-03] MEDS ORDERED: KETOROLAC 30 MG/ML VIAL ONE (11:26)
[2016-04-03] MEDS ORDERED: FUROSEMIDE 40 MG/4 ML INJ (LASIX) ONE (11:26)
[2016-04-03] MEDS ORDERED: ESMOLOL 100 MG/10 ML (BREVIBLOC) VIAL ONE (12:00)
--- NOTE | 2016-04-03 12:01 | Progress Note-Post Operative ---
Post-Operative Progess Note Pre-Operative Diagnosis Rt renal stone Post-Operative Diagnosis same Post-Op Procedure Note Date of Procedure: Apr 03, 2016 Name of Procedure: Rt ESWL Anesthesia Type general EULOGIO JIN MD Apr 03, 2016 12:01 pm
--- NOTE | 2016-04-03 12:06 | Discharge Inst-Urology ---
Discharge Inst-Urology Patient Instructions/Follow Up Plan Please make appointment to been seen in office next week for cysto and DC stent , KUB prior to it KUB on way home Post ESWL instructions Increase oral fluids for 48 hours and then as needed. Diet and Activity as tolerated. If questions or concerns contact your physician Or seek help at emergency department. EULOGIO JIN MD Apr 03, 2016 12:06 pm
[2016-04-03] MEDS ORDERED: PHENYLEPHRINE 100 MCG/ML 10 ML (ANESTHESIA) SYR ONE (12:12)
[2016-04-03] MEDS ORDERED: ONDANSETRON 4 MG/2 ML (SDV) Z0FRAN IVP PRN (12:30)
[2016-04-03] MEDS ORDERED: fentaNYL INJECTION 100 MCG/2 ML AMP IVP PRN (12:30)
[2016-04-03 13:30] VITALS: BP 116/57
[2016-04-03 14:00] VITALS: BP 117/58
--- NOTE | 2016-04-03 14:40 | OPERATIVE REPORT ---
PROCEDURE PHYSICIAN: EULOGIO JIN DATE OF PROCEDURE: 04/03/2016 PREOPERATIVE DIAGNOSIS: Right renal stone. POSTOPERATIVE DIAGNOSIS: Right renal stone. OPERATION PERFORMED: Right ESWL. SURGEON: Madeline. ANESTHESIA: General. COMPLICATIONS: None. PROCEDURE: Under satisfactory general anesthesia, the patient in supine position on the ESWL table, the right renal stone was localized. Shocks were delivered KV of 5. A total of 800 shocks completely fragmented the stone that was not visible anymore. The patient received 40 mg of Lasix and 30 mg of Toradol IV at the procedure. She tolerated the procedure and anesthesia well and was sent to recovery room in stable condition. Job ID: [id number] Dictated Date: 04/03/2016 12:14:14 Conventional Underwriter Date: 04/03/2016 14:37:49 / sudha
--- NOTE | 2016-04-03 19:17 | Diagnostic Imaging Report ---
EXAMINATION: KUB. INDICATION: Post lithotripsy. FINDINGS: There is a right ureteric stent in place with stone fragments seen in the proximal aspect of the stent above the level of the UPJ along the length of 8 mm in the stent. There is a suggestion of a 5 mm upper pole right kidney stone as well. There is a question of a stone fragment also near the stent in the bladder or at the UVJ junction measuring 6 mm. Phlebolith laterally is seen. There is kinking of the ureter in the mid sacrum level medially probably related to fibrosis with adjacent surgical clips. IMPRESSION: Interval fragmentation of right kidney stone. There is suggestion of stone fragments in the upper calyx area in the right kidney, at the UPJ, and in the urinary bladder. Dictated by: Dictated on workstation # [id number]
[2016-04-08] MEDS ORDERED: ONDANSETRON 4 MG/2 ML (SDV) Z0FRAN IVP ONE (07:30)
== END 2016-04-03 14:50 | disposition home or self-care (01) ==
LOC: SDC 06:31
PROVIDERS: ATTEND Urology
DX: N20.0 Calculus of kidney (principal); Z11.2 Encounter for screening for other bacterial diseases
CPT/HCPCS: 74000; 87081

== ENCOUNTER → 2016-04-10 | Outpatient (CLI) | payer MEDICARE, MEDICAID ==
[~2016-04-10] MED LIST changes: +ACET-93 PO; +LEVO750T39 PO; +NITR100C PO; +ONDA4TAB10 PO; +ONDA8TAB13 PO; +ONDA8TAB9 PO
--- OUTSIDE RECORDS SUMMARY | 2016-04-10 14:34 | XMS REPORT | Continuity of Care Document ---
Author Author [facility] Organization [facility] Address Unknown Phone Unavailable Care Team Providers Care Micro Photographer Name Role Phone NO, LOCAL PHYSICIAN PCP Unavailable Insurance Providers Payer Name Policy Number Subscriber Name Relationship Wps Medicare [id number] Carol High 18 Self / Same As Patient [facility] [id number] Carol High 18 Self / Same As Patient Advance Directives Directive Response Recorded Date/Time Advance Directives No 05/30/14 1:49pm Health Care Power of Integrated Program Teacher No 05/30/14 1:49pm Organ Donor No 05/30/14 [...] on June 29, 2014 at 5:30 Call [phone] if unable to attend. MAXIMUS PEARCE DO (Unspecified) 07/14/14 Address: [address] [place] [address]&[place] [address] Reason(s) for Referral: Follow up [...] F (97.6 - 99.5) Temperature (Calculated Celsius) 36.38697 degrees C (36.4 - 37.5) Temperature Source Tympanic Pulse Rate (adult) 52 bpm (60 - 90) Respiratory Rate 22 bpm (12 - 24) O2 Sat by Pulse Oximetry 92 % (88 - 100) Blood Pressure 163/90 mm Hg Pain Pain Intensity 0 Height (Feet) 5 feet Height (Inches) 2.00 inches Height (Calculated Centimeters) 157.862420 cm Weight (Pounds) 176 pounds Weight (Ounces) 0.9 oz Weight (Calculated Grams) 74462.772 gm Weight (Calculated Kilograms) 79.936828 kilograms Calculated BMI 29.99 Results Laboratory Results [...] 5-9 05/30/2014 11:35am 05/30/2014 12:02pm Urine Specific [place] 1.020 1.016-1.022 05/30/2014 11:35am 2014 12:02pm Urine [...] Encounters Encounter Location Date/Time Admitted Inpatient Via [facility] 05/30/14 12:41pm Recent Diagnosis Urinary tract infection Acute renal failure Diarrhea Sepsis Nausea and vomiting Abdominal pain Hypotension Hypovolemia Urinary tract infection
--- NOTE | 2016-04-10 15:46 | Diagnostic Imaging Report ---
INDICATION: Right renal calculi post ESWL. FINDINGS: A supine view of the abdomen demonstrates a right ureteral stent remaining unchanged in position. A 6 mm calculus is seen adjacent to the top of the stent. A couple of punctate calculi are present overlying the right kidney. The bowel gas pattern appears normal. IMPRESSION: There is a 6 mm calculus adjacent to the top of the ureteral stent. A couple of punctate calcifications overlie the right kidney. Dictated by: Dictated on workstation # [id number]
== END ==
LOC: RAD 14:29
PROVIDERS: ATTEND Urology
DX: N20.0 Calculus of kidney (principal); Z98.890 Other specified postprocedural states
CPT/HCPCS: 74000

== ENCOUNTER 2016-04-26 14:30 | Outpatient (RCR) | payer MEDICARE, MEDICAID ==
--- OUTSIDE RECORDS SUMMARY | 2016-04-22 14:07 | XMS REPORT | Continuity of Care Document ---
Author Author [facility] Organization [facility] Address Unknown Phone Unavailable Care Team Providers Care Laboratory Cureman Name Role Phone NO, LOCAL PHYSICIAN PCP Unavailable Insurance Providers Payer Name Policy Number Subscriber Name Relationship Wps Medicare [id number] Carol High 18 Self / Same As Patient [facility] [id number] Carol High 18 Self / Same As Patient Advance Directives Directive Response Recorded Date/Time Advance Directives No 05/30/14 1:49pm Health Care Power of Information Technology Data Analyst No 05/30/14 1:49pm Organ Donor No 05/30/14 [...] on June 29, 2014 at 5:30 Call [phone] if unable to attend. MAXIMUS PEARCE DO (Unspecified) 07/14/14 Address: [address] [place] [address]&[place] [address] Reason(s) for Referral: Follow up [...] F (97.6 - 99.5) Temperature (Calculated Celsius) 36.01119 degrees C (36.4 - 37.5) Temperature Source Tympanic Pulse Rate (adult) 52 bpm (60 - 90) Respiratory Rate 22 bpm (12 - 24) O2 Sat by Pulse Oximetry 92 % (88 - 100) Blood Pressure 163/90 mm Hg Pain Pain Intensity 0 Height (Feet) 5 feet Height (Inches) 2.00 inches Height (Calculated Centimeters) 157.497161 cm Weight (Pounds) 176 pounds Weight (Ounces) 0.9 oz Weight (Calculated Grams) 72399.772 gm Weight (Calculated Kilograms) 79.417167 kilograms Calculated BMI 29.99 Results Laboratory Results [...] 5-9 05/30/2014 11:35am 05/30/2014 12:02pm Urine Specific [place] 1.020 1.016-1.022 05/30/2014 11:35am 2014 12:02pm Urine [...] Encounters Encounter Location Date/Time Admitted Inpatient Via [facility] 05/30/14 12:41pm Recent Diagnosis Urinary tract infection Acute renal failure Diarrhea Sepsis Nausea and vomiting Abdominal pain Hypotension Hypovolemia Urinary tract infection
[2016-04-22 15:06] LABS: CALCIUM 9.4 MG/DL (8.5-10.1); CREATININE SERUM 1.72 MG/DL (0.60-1.30); PHOSPHORUS 3.8 MG/DL (2.3-4.7); POTASSIUM 4.3 MMOL/L (3.6-5.0); URIC ACID 5.6 MG/DL (2.6-7.2)
[2016-04-23 07:43] LABS: CALCIUM PARA THYROID HORMONE 9.8 mg/dL (8.5-10.5)
[~2016-04-26 14:30] MED LIST changes: -ACET-93 PO; -LEVO750T39 PO; -NITR100C PO; -ONDA4TAB10 PO; -ONDA8TAB13 PO; -ONDA8TAB9 PO
[2016-04-29 22:39] LABS: STONE RISK AMMONIUM 24 mEq/24hr (14-62); STONE RISK BRUSHITE 0.74 (< 2.00); STONE RISK CA OXALATE 2.63 (< 2.00); STONE RISK CALCIUM 65 mg/day (< 250); STONE RISK CITRATE 70 mg/day (> 320); STONE RISK CREATININE 1009 mg/day (600-1800); STONE RISK MAGNESIUM 49 mg/day (> 60); STONE RISK OXALATE 28 mg/day (< 45); STONE RISK PH 5.4 (5.5-7.0); STONE RISK PHOSPHOROUS 826 mg/day (< 1100); STONE RISK POTASSIUM 30 mEq/24hr (19-135); STONE RISK SODIUM 51 mEq/24hr (< 200); STONE RISK SODIUM URATES 1.58 (< 2.00); STONE RISK STRUVITE 0.18 (< 75.00); STONE RISK SULFITE 6 mmol/day (< 30); STONE RISK TOTAL VOLUME 0.69 L/day (> 2.00); STONE RISK URIC ACID 335 mg/day (< 700); STONE RISK URIC ACID SAT 5.07 (< 2.00)
[2016-05-10] MEDS ORDERED: ONDA8TAB9 PO (13:42)
[2016-05-10] MEDS ORDERED: CIPR-225 PO (13:58)
[2016-05-13] MEDS ORDERED: CIPR-225 PO (13:57)
[2016-05-13] MEDS ORDERED: ONDA4TAB10 PO (13:57)
[2016-05-13] MEDS ORDERED: ARMO250T2 PO (13:57)
[2016-05-13] MEDS ORDERED: ACET-93 PO (13:57)
[2016-05-13] MEDS ORDERED: ONDA8TAB13 PO (14:04)
[2016-05-14] MEDS ORDERED: LEVO750T39 PO (12:40)
[2016-05-14] MEDS ORDERED: IBUP-1780 PO (12:41)
[2016-07-17] MEDS ORDERED: NITR100C PO (14:12)
== END 2016-07-21 | disposition home or self-care (01) ==
LOC: LAB 14:30
PROVIDERS: ATTEND Urology
DX: N20.9 Urinary calculus, unspecified (principal)
CPT/HCPCS: 36415; 80048; 82140; 82340; 82507; 82570; 83735; 83945; 83970; 83986; 84100; 84105; 84133; 84300; 84392; 84550; 84560

== ENCOUNTER 2016-05-10 13:19 | Emergency (ER) | payer MEDICARE, MEDICAID ==
[~2016-05-10] VITALS: Ht 157.5 cm; Wt 72.6 kg
--- OUTSIDE RECORDS SUMMARY | 2016-05-10 13:27 | XMS REPORT | Continuity of Care Document ---
Author Author [facility] Organization [facility] Address Unknown Phone Unavailable Care Team Providers Care Business Banking Representative Name Role Phone NO, LOCAL PHYSICIAN PCP Unavailable Insurance Providers Payer Name Policy Number Subscriber Name Relationship Wps Medicare [id number] Carol High 18 Self / Same As Patient [facility] [id number] Carol High 18 Self / Same As Patient Advance Directives Directive Response Recorded Date/Time Advance Directives No 05/30/14 1:49pm Health Care Power of High School English Teacher No 05/30/14 1:49pm Organ Donor No [...] on June 29, 2014 at 5:30 Call [phone] if unable to attend. MAXIMUS PEARCE DO (Unspecified) 07/14/14 Address: [address] [place] [address]&[place] [address] Reason(s) for Referral: Follow up [...] F (97.6 - 99.5) Temperature (Calculated Celsius) 36.26802 degrees C (36.4 - 37.5) Temperature Source Tympanic Pulse Rate (adult) 52 bpm (60 - 90) Respiratory Rate 22 bpm (12 - 24) O2 Sat by Pulse Oximetry 92 % (88 - 100) Blood Pressure 163/90 mm Hg Pain Pain Intensity 0 Height (Feet) 5 feet Height (Inches) 2.00 inches Height (Calculated Centimeters) 157.992014 cm Weight (Pounds) 176 pounds Weight (Ounces) 0.9 oz Weight (Calculated Grams) 25046.772 gm Weight (Calculated Kilograms) 79.427431 kilograms Calculated BMI 29.99 Results Laboratory Results [...] 5-9 05/30/2014 11:35am 05/30/2014 12:02pm Urine Specific [place] 1.020 1.016-1.022 05/30/2014 11:35am 2014 12:02pm Urine [...] Encounters Encounter Location Date/Time Admitted Inpatient Via [facility] 05/30/14 12:41pm Recent Diagnosis Urinary tract infection Acute renal failure Diarrhea Sepsis Nausea and vomiting Abdominal pain Hypotension Hypovolemia Urinary tract infection
[2016-05-10] MEDS ORDERED: NS IV 500 ML 500 ML IV SCH (13:30)
--- NOTE | 2016-05-10 13:40 | ED General ---
General Stated Complaint: DIARRHEA/VOMITING RUNNY NOSE Source of Information: Patient Exam Limitations: No Limitations History of Present Illness Time Seen by Provider: 13:39 Initial Comments To ER with reports of nausea without vomiting, watery diarrhea without blood or mucus, rhinorrhea and a productive cough since April 30. She has not injured this to her doctor though she did see him last week for routine outpatient labs performed got to mention her symptoms to him. Timing/Duration: Intermittent Modifying Factors: improves with Medication Associated Systoms: Cough Malaise Nausea/Vomiting Allergies and Home Medications Allergies Coded Allergies: sulfamethoxazole (Verified Allergy, Intermediate, VOMITTING/MIGRAINE, ) trimethoprim (Verified Allergy, Intermediate, VOMITTING/MIGRAINE, 03/14/16 ) codeine (Unverified Allergy, Mild, TAKES HYDROCODONE AT HOME, 07/04/14) morphine (Unverified Adverse Reaction, Mild, N/V, 07/04/14) pentazocine (Unverified Adverse Reaction, Mild, N/V, HEAD ACHE, 07/04/14) Home Medications Acetaminophen 325 Mg Tablet 650 MG PO Q4H PRN PRN PAIN (Reported) TAKES 2 (325 MG) TABLETS Albuterol Sulfate 18 Gm Hfa.aer.ad 2 PUFF INH EVERY 4-6 HOURS PRN PRN SHORTNESS OF BREATH (Reported) Atorvastatin Calcium 20 Mg Tablet 20 MG PO BID (Reported) Bisacodyl 5 Mg Tablet 5 MG PO PRN PRN PRN CONSTIPATION (Reported) Cefdinir 300 Mg Capsule #14 300 MG PO BID Prescribed by: ADAMS LOREDO on 04/01/162043 Ciprofloxacin HCl 500 Mg Tablet #14 500 MG PO BID Prescribed by: LISA VIEIRA on 03/19/16 1500 Enalapril Maleate 2.5 Mg Tablet 2.5 MG PO DAILY (Reported) Estradiol 1 Mg Tablet 1 MG PO HS (Reported) Fenofibrate,Micronized 134 Mg Capsule 134 MG PO HS (Reported) Hydrochlorothiazide 25 Mg Tablet 25 MG PO DAILY (Reported) Hydrocodone/Acetaminophen 1 Each Tablet #30 1-2 EACH PO Q4H PRN PRN PAIN Prescribed by: LISA VIEIRA on 03/19/16 1500 Hydrocodone/Acetaminophen 15 Ml Solution #120 10 ML PO Q4H PRN PRN PAIN Prescribed by: MURALI TRIVEDI on 03/20/16 1429 Lansoprazole 30 Mg Capsule.dr 30 MG PO DAILY (Reported) Meloxicam 15 Mg Tablet 15 MG PO HS (Reported) Metoprolol Tartrate 25 Mg Tablet 12.5 MG PO BID (Reported) TAKES 1/2 OF A (25 MG) TABLET Nicotine Polacrilex 4 Mg Gum 4 MG BC PRN (Reported) Nitroglycerin 0.4 Mg Tab.subl 0.4 MG SL PRN PRN PRN CHEST PAIN (Reported) Ondansetron 8 Mg Tab.rapdis #10 8 MG PO Q4H PRN PRN NAUSEA Prescribed by: YONAS OWUSU on 05/10/16 1342 Potassium Chloride 20 Meq Tab.er.prt 40 MEQ PO BID (Reported) Prednisone 10 Mg Tab 10 MG PO DAILY (Reported) Promethazine HCl 25 Mg Tablet 25 MG PO Q6H PRN PRN NAUSEA/VOMITING (Reported) Tamsulosin HCl 0.4 Mg Cap #14 0.4 MG PO DAILY Prescribed by: LISA VIEIRA on 03/19/16 1500 Tetracaine Sucker Ea #2 1 EA MT UD PRN PRN PAIN Tetracain Suckers These suckers are custom made and require a prescription. Moisten the sucker first and then suck on it gently as far back in the mouth as possible for 2-3 days. You can repeadt it in about an hour. This will take the edge off but not completely numb the throat. Prescribed by: MURALI TRIVEDI on 03/20/16 1429 Topiramate 50 Mg Tablet 50 MG PO BID (Reported) Venlafaxine HCl 75 Mg Cap.er.24h 75 MG PO HS (Reported) Constitutional: see HPI EENTM: see HPI Respiratory: see HPI cough Cardiovascular: no symptoms reported Genitourinary: no symptoms reported Musculoskeletal: no symptoms reported Skin: no symptoms reported Psychiatric/Neurological: No Symptoms Reported Past Loeyhjo-Hbwjky-Exzigu Hx Patient Social History Type Used: Cigarettes Former Smoker/When Quit: Recent Foreign Travel: No Contact w/Someone Who Travel: No Recent Hopitalizations: Yes (03/19/16 LITHOTRIPSY) Immunizations Up To Date Tetanus Booster (TDap): More than 5yrs PED Vaccines UTD: No Date of Pneumonia Vaccine: May 01, 2015 Date of Influenza Vaccine: Feb 21, 2016 Seasonal Allergies Seasonal Allergies: Yes Surgeries HX Surgeries: Yes Surgeries: Abdominal, Appendectomy, Bowel Surgery, Breast, Cardiac, Coronary Stent, Gallbladder, Hysterectomy, Renal Respiratory Hx Respiratory Disorders: Yes Respiratory Disorders: Asthma, COPD Cardiovascular Hx Cardiac Disorders: Yes (STENT PLACED OCTOBER 2014 AFTER [place]) Cardiac Disorders: Coronary Artery Disease, Heart Attack, High Cholesterol, Hypertension Neurological Hx Neurological Disorders: Yes (SEIZURE: 10 years ago last one) Neurological Disorders: Seizure Disorder 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 System Hx 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 Disorders: No Sexually Transmitted Disease: No HIV/AIDS: No 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 Disorders: Denies [employer]ARM[employer]OVIGILANCE [employer]AF[employer]Y 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 Genitourinary Hx Genitourinary Disorders: Yes Genitourinary Disorders: Bladder Infection, Kidney Stones, Renal Failure Gastrointestinal Hx Gastrointestinal Disorders: Yes Gastrointestinal Disorders: Diverticulosis, Irritable Bowel Musculoskeletal Hx Musculoskeletal Disorders: Yes Musculoskeletal Disorders: Arthritis, Fibromyalgia, Rheumatoid Arthritis Endocrine Hx Endocrine Disorders: No HEENT HX ENT Disorders: Yes HEENT Disorders: Glaucoma Loss of Vision: Denies Hearing Impairment: Denies Cancer Hx Cancer: No Psychosocial Hx Psychiatric Problems: Yes Behavioral Health Disorders: Anxiety, Bipolar, Depression Integumentary HX Skin/Integumentary Disorder: Yes (SHINGLES) Blood Transfusions Hx Blood Disorders: No Adverse Reaction to a Blood Tr: No Family Medical History Significant Family History: No Pertinent Family Hx, Cancer Family Medial History: CANCER 19 MOTHER (PATIENT DOES NOT KNOW LOCATION) Physical Exam Vital Signs Vital Sign - Last 12Hours 05/10/16 13:30 Temp 98.2 Pulse 98 Resp 18 B/P 131/67 Pulse Ox 97 O2 Delivery Room Air Capillary Refill : General Appearance: No Apparent Distress WD/WN Chronically ill Eyes: Bilateral Eye Normal Inspection, Bilateral Eye PERRL HEENT: PERRL/EOMI TMs Normal Respiratory: No Accessory Muscle Use No Respiratory DistressNo Respiratory Distress, No Wheezing Cardiovascular: Regular Rate, Rhythm Normal Peripheral Pulses Gastrointestinal: Normal Bowel Sounds Non Tender SoftNo Abnormal Bowel Sounds , No Distended, No Guarding, No Hepatomegaly, No Tenderness Extremity: Normal Capillary Refill Neurologic/Psychiatric: Alert Oriented x3 No Motor/Sensory Deficits Skin: Normal Color Warm/Dry Date of ETT Placement: Feb 11, 2016 Time of ETT Placement: 1341 Progress/Results/Core Measures Results/Orders Lab Results Laboratory Tests Test 05/10/16 13:25 Range/Units Basophils # (Auto) 0.1 0.0-0.1 10^3/uL Basophils (%) (Auto) 0 0-10 % Eosinophils # (Auto) 0.2 0.0-0.3 10^3/uL Eosinophils (%) (Auto) 2 0-10 % Hematocrit 39 35-52 % Hemoglobin 13.4 11.5-16.0 G/DL Lymphocytes # (Auto) 3.9 1.0-4.0 X 10^3 Lymphocytes (%) (Auto) 33 12-44 % Mean Corpuscular Hemoglobin 31 25-34 PG Mean Corpuscular Hemoglobin Concent 34 32-36 G/DL Mean Corpuscular Volume 90 80-99 FL Mean Platelet Volume 9.6 7.4-10.4 FL Monocytes # (Auto) 1.4 H 0.0-1.0 X 10^3 Monocytes (%) (Auto) 12 0-12 % Neutrophils # (Auto) 6.2 1.8-7.8 X 10^3 Neutrophils (%) (Auto) 53 42-75 % Platelet Count 501 H 130-400 10^3/uL Red Blood Count 4.37 4.35-5.85 10^6/uL Red Cell Distribution Width 15.7 H 10.0-14.5 % Urine Bacteria NEGATIVE /HPF Urine Bilirubin 1+ H NEGATIVE Urine Casts PRESENT /LPF Urine Clarity CLEAR Urine Color YELLOW Urine Crystals NONE /LPF Urine Culture Indicated YES Urine Glucose (UA) NEGATIVE NEGATIVE Urine Hyaline Casts RARE /LPF Urine Ketones NEGATIVE NEGATIVE Urine Leukocyte Esterase 3+ H NEGATIVE Urine Mucus NEGATIVE /LPF Urine Nitrite NEGATIVE NEGATIVE Urine Protein 2+ H NEGATIVE Urine RBC NONE /HPF Urine RBC (Auto) 1+ H NEGATIVE Urine Specific [place] 1.025 H 1.016-1.022 Urine Squamous Epithelial Cells 5-10 /HPF Urine Urobilinogen NORMAL NORMAL MG/DL Urine WBC 5-10 H /HPF Urine pH 5 5-9 White Blood Count 11.6 H 4.3-11.0 10^3/uL My Orders Orders-YONAS OWUSU [employer] Cbc With Automated Diff (05/10/16 13:28) Comprehensive Metabolic Panel (05/10/16 13:28) Ua Culture If Indicated (05/10/16 13:28) Saline Lock/Iv-Start (05/10/16 13:28) Ns Iv 500 Ml (Sodium Chloride 0.9%) (05/10/16 13:30) Chest Pa/Lat (2 View) (05/10/16 13:38) Ondansetron Injection (Zofran Injectio (05/10/16 13:45) Ondansetron Injection (Zofran Injectio (05/10/16 13:41) Urine Culture (05/10/16 13:25) Medications Given in ED Current Medications Medications Dose Ordered Sig/Jamie Route Start Time Stop Time Status Last Admin Dose Admin Ondansetron HCl 4 mg ONCE ONCE IVP 05/10/16 13:45 05/10/16 13:46 DC 05/10/16 13:44 4 MG Vital Signs/I&O Vital Sign - Last 12Hours 05/10/16 13:30 Temp 98.2 Pulse 98 Resp 18 B/P 131/67 Pulse Ox 97 O2 Delivery Room Air Departure Impression Impression: Primary Impression: Nausea vomiting and diarrhea Additional Impressions: Viral syndrome Urinary tract infection Disposition: 01 HOME, SELF-CARE Condition: Stable Departure-Patient Inst. Decision time for Depature: 13:41 Referrals: NO,LOCAL PHYSICIAN (PCP/Family) Primary Care Physician Patient Instructions: VIRAL SYNDROME Add. Discharge Instructions: 1. Drink plenty of fluids 2. Use [id number] Imodium for your diarrhea 3. Use the nausea medication as directed Scripts Ciprofloxacin HCl (Cipro)500 Mg Ovmehu600 Mg PO BID #6 TAB Prov:YONAS OWUSU [employer] 05/10/16 Ondansetron (Zofran Odt)8 Mg Tab.rapdis8 Mg PO Q4H PRN NAUSEA #10 TAB Prov:YONAS OWUSU [employer] 05/10/16 YONAS OWUSU [employer] May 10, 2016 13:40
[2016-05-10] MEDS ORDERED: ONDANSETRON 4 MG/2 ML (SDV) Z0FRAN ONE (13:41)
[2016-05-10] MEDS ORDERED: ONDA8TAB9 PO (13:42)
[2016-05-10 13:43] LABS: KETONES,URINE NEGATIVE (NEGATIVE); LEUKOCYTE ESTERASE ,URINE 3+ (NEGATIVE); NITRITE,URINE NEGATIVE (NEGATIVE); PH,URINE 5 (5-9); PROTEIN,URINE 2+ (NEGATIVE); UROBILINOGEN,URINE NORMAL (NORMAL)
[2016-05-10 13:44] LABS: BASOPHILS # (AUTO) 0.1 10^3/uL (0.0-0.1); BASOPHILS % (AUTO) 0 % (0-10); EOSINOPHILS # (AUTO) 0.2 10^3/uL (0.0-0.3); EOSINOPHILS % (AUTO) 2 % (0-10); LYMPHOCYTES # (AUTO) 3.9 X 10^3 (1.0-4.0); LYMPHOCYTES % (AUTO) 33 % (12-44); MEAN CORPUSCULAR HEMOGLOBIN 31 PG (25-34); MEAN CORPUSCULAR HGB CONC 34 G/DL (32-36); MEAN CORPUSCULAR VOLUME 90 FL (80-99); MEAN PLATELET VOLUME 9.6 FL (7.4-10.4); MONOCYTES # (AUTO) 1.4 X 10^3 (0.0-1.0); MONOCYTES % (AUTO) 12 % (0-12); NEUTROPHILS # (AUTO) 6.2 X 10^3 (1.8-7.8); NEUTROPHILS % (AUTO) 53 % (42-75); PLATELET COUNT 501 10^3/uL (130-400); RED BLOOD COUNT 4.37 10^6/uL (4.35-5.85); RED CELL DISTRIBUTION WIDTH 15.7 % (10.0-14.5); WHITE BLOOD COUNT 11.6 10^3/uL (4.3-11.0)
[2016-05-10] MEDS ORDERED: ONDANSETRON 4 MG/2 ML (SDV) Z0FRAN IVP ONE (13:45)
[2016-05-10 13:52] LABS: BILIRUBIN,URINE 1+ (NEGATIVE)
[2016-05-10 13:53] LABS: HYALINE CASTS, URINE RARE /LPF
[2016-05-10] MEDS ORDERED: CIPR-225 PO (13:58)
[2016-05-10 14:03] LABS: ALBUMIN 4.2 G/DL (3.2-4.5); BILIRUBIN,TOTAL 0.3 MG/DL (0.1-1.0); CREATININE SERUM 1.56 MG/DL (0.60-1.30); POTASSIUM 4.1 MMOL/L (3.6-5.0); TOTAL PROTEIN 7.7 G/DL (6.4-8.2)
--- NOTE | 2016-05-10 14:04 | Diagnostic Imaging Report ---
INDICATION: Shortness of air. COMPARISON: 04/01/2016. FINDINGS: Frontal and lateral views of the chest demonstrate normal heart size and pulmonary vascularity. The lungs are hyperinflated. There is slight blunting of the lateral and posterior right costophrenic angles. No large effusion is seen on the left. There is no focal consolidation or pneumothorax on either side. The visualized osseous structures show no acute abnormalities. IMPRESSION: 1. Perhaps trace right-sided pleural effusion. Dictated by: Dictated on workstation # [id number]
[2016-05-10 14:09] VITALS: BP 130/70
== END 2016-05-10 14:09 | disposition home or self-care (01) ==
LOC: EDUNIT# 13:19 → ER 13:22
DX: B34.9 Viral infection, unspecified (principal); N39.0 Urinary tract infection, site not specified; R19.7 Diarrhea, unspecified; J44.9 Chronic obstructive pulmonary disease, unspecified; I10 Essential (primary) hypertension; I25.10 Atherosclerotic heart disease of native coronary artery without angina pectoris; I25.2 Old myocardial infarction; Z79.899 Other long term (current) drug therapy
CPT/HCPCS: 36415; 71020; 80053; 81000; 85025; 87088; 87186; 96374

== ENCOUNTER 2016-05-13 08:36 | Inpatient (IN) | payer MEDICARE, MEDICAID ==
[~2016-05-13] VITALS: Ht 157.5 cm; Wt 71.2 kg
[~2016-05-13 08:36] MED LIST changes: +ONDA8TAB9 PO
--- OUTSIDE RECORDS SUMMARY | 2016-05-13 08:42 | XMS REPORT | Continuity of Care Document ---
Author Author [facility] Organization [facility] Address Unknown Phone Unavailable Care Team Providers Care Special Certificate Dictator Name Role Phone NO, LOCAL PHYSICIAN PCP Unavailable Insurance Providers Payer Name Policy Number Subscriber Name Relationship [employer] [id number] Carol High 18 Self / Same As Patient [facility] [id number] aCrol High 18 Self / Same As Patient Advance Directives Directive Response Recorded Date/Time Advance Directives No 05/10/16 1:30pm Health Care Power of Labor Commissioner No 05/10/16 1:30pm Organ Donor Yes 05/10/16 1:30pm Resuscitation Status Full Code 05/10/16 1:30pm Chief Complaint and Reason for Visit Chief Complaint Abdominal/GI Problems Reason for Visit Urinary tract infection [id number] Problems Active Problems Medical Problem Onset Date Status Abdominal pain Unknown Acute Abdominal pain Unknown Acute Acute myocardial infarction of anterior wall Unknown Acute Acute myocardial infarction of inferior wall Unknown Acute Acute renal failure Unknown Acute Acute renal insufficiency Unknown Acute Atherosclerotic heart disease of [place] coronary artery without angina pectoris Unknown Acute COPD (chronic obstructive pulmonary disease) Unknown Acute Chest pain Unknown Acute Colitis Unknown Acute Colitis Unknown Acute Constipation Unknown Acute Dehydration Unknown Acute Dehydration Unknown Acute Diarrhea Unknown Acute Diverticula of colon Unknown Acute Elevated troponin Unknown Acute Fever Unknown Acute Fluid collection at surgical site Unknown Acute Gastroenteritis Unknown Acute Hypotension Unknown Acute Hypovolemia Unknown Acute Intractable nausea and vomiting Unknown Acute Leukocytosis Unknown Acute N/V/D, possible small bowel obstruction Unknown Acute Nausea and vomiting Unknown Acute Nausea and vomiting Unknown Acute Nausea vomiting and diarrhea Unknown Acute Non-cardiac chest pain Unknown Acute Postoperative abdominal pain Unknown Acute Rib pain on right side Unknown Acute Sepsis Unknown Acute Small bowel obstruction due to adhesions Unknown Acute UTI (urinary tract infection) Unknown Acute Ulcer of pharynx Unknown Acute Ulceration of oral mucosa Unknown Acute Unstable angina Unknown Acute Upper respiratory infection Unknown Acute Urinary tract infection Unknown Acute Urinary tract infection Unknown Acute Viral syndrome Unknown Acute Wound dehiscence, surgical Unknown Acute Medications Current Home Medications Medication Dose Units Route Directions Days/Qty Instructions Start Date Meloxicam 15 Mg 15 Mg Oral Bedtime 11/27/14 Prednisone 10 Mg 10 Mg Oral Daily 11/28/14 Venlafaxine Hcl 75 Mg 75 Mg Oral Bedtime 11/28/14 Estradiol 1 Mg 1 Mg Oral Bedtime 11/28/14 Albuterol Sulfate 18 Gm 2 Puff Inhalation Every 4-6 Hours as needed for Shortness Of Breath 11/28/14 Lansoprazole 30 Mg 30 Mg Oral Daily 04/20/15 Fenofibrate,Micronized 134 Mg 134 Mg Oral Bedtime 04/20/15 Atorvastatin Calcium 20 Mg 20 Mg Oral Twice A Day 04/20/15 Acetaminophen 325 Mg 650 Mg Oral Every 4HRS as needed for Pain TAKES 2 (325 MG) TABLETS 11/27/15 Topiramate 50 Mg 50 Mg Oral Twice A Day 11/27/15 Metoprolol Tartrate 25 Mg 12.5 Mg Oral Twice A Day TAKES 1/2 OF A (25 MG) TABLET 11/27/15 Enalapril Maleate 2.5 Mg 2.5 Mg Oral Daily 11/27/15 Hydrochlorothiazide 25 Mg 25 Mg Oral Daily 03/13/16 Potassium Chloride 20 Meq 40 Meq Oral Twice A Day 03/13/16 Promethazine Hcl (Phenergan Tablet) 25 Mg 25 Mg Oral Every 6 Hours as needed for Nausea/Vomiting 03/13/16 Nitroglycerin 0.4 Mg 0.4 Mg Sublingual As Needed as needed for Chest Pain 03/13/16 Bisacodyl 5 Mg 5 Mg Oral As Needed as needed for Constipation Nicotine Polacrilex 4 Mg 4 Mg Buccal As Needed 03/13/16 Ciprofloxacin Hcl 500 Mg 500 Mg Oral Twice A Day 14 03/19/16 Tamsulosin Hcl 0.4 Mg 0.4 Mg Oral Daily 14 12/20/16 Hydrocodone/Acetaminophen 1 Each 1-2 Each Oral Every 4HRS as needed for Pain 30 03/19/16 Hydrocodone/Acetaminophen 15 Ml 10 Ml Oral Every 4HRS as needed for Pain 120 03/20/16 Tetracaine Sucker 1 Ea Mouth/Throat As Directed as needed for Pain 2 Tetracain Suckers These suckers are custom made and require a prescription. Moisten the sucker first and then suck on it gently as far back in the mouth as possible for 2-3 days. You can repeadt it in about an hour. This will take the edge off but not completely numb the throat. 03/20/16 Cefdinir (Omnicef) 300 Mg 300 Mg Oral Twice A Day for Uti 14 04/01/16 Ondansetron 8 Mg 8 Mg Oral Every 4HRS as needed for Nausea 10 05/10/16 Ciprofloxacin Hcl 500 Mg 500 Mg Oral Twice A Day 6 05/10/16 Past Home Medications Medication Directions Ordered Status Cyclobenzaprine Hcl (Flexeril) 10 Mg Tablet, 10/18/08 Discontinued Estradiol 0.025 Mg Patch, 10/18/08 Discontinued Meloxicam 7.5 Mg Tablet, 7.5 Mg Oral Bedtime 10/18/08 Discontinued Acetaminophen/Hydrocodone Bitart 1 Each Tablet, 1 - 2 Each Oral Q4hr Prn 20/12 Discontinued Promethazine Hcl 25 Mg Tablet, 1 Tab Oral Four Times Daily 10/19/08 Discontinued Venlafaxine Hcl 37.5 Mg Cap.sr.24h, 37.5 Mg Oral Daily 01/05/09 Discontinued Oxycodone Hcl/Acetaminophen 1 Each Tablet, 01/05/09 Discontinued Promethazine Hcl 25 Mg Tablet, 1 Tab Oral Four Times Daily 01/05/09 Discontinued Cephalexin Monohydrate (Keflex) 500 Mg Capsule, 1 Each Oral Three Times A Day 11/04/09 Discontinued Acetaminophen/Hydrocodone Bitart 1 Tab Tablet, 1 - 2 Each Oral Q 4 - 6 Hrs Prn 11/16/09 Discontinued Cyclobenzaprine Hcl (Flexeril) 10 Mg Tablet, 1 Each Oral Three Times A Day And Prn 01/08/10 Discontinued Etodolac 300 Mg Cap, 300 Mg Oral Twice A Day 01/08/10 Discontinued Albuterol 17 Gm Aerosol, 2 Puff Inhalation Every 4HRS as needed for Shortness Of Breath 05/09/10 Discontinued Nitrofurantoin Macrocrystals 100 Mg Capsule, 1 Each Oral Twice A Day Discontinued Acetaminophen/Hydrocodone Bitart 1 Ea Tab, 1 - 2 Ea Oral Q4hr Prn 05/09/10 Discontinued Nitrofurantoin Macrocrystals 100 Mg Capsule, 1 Each Oral Twice A Day Discontinued Estriol 0.1 Gm Powder, 0.1 Gm Miscell 08/10/12 Discontinued Lansoprazole 15 Mg Capsule.dr, 15 Mg Oral 08/10/12 Discontinued Hydroxychloroquine Sulfate 200 Mg Tab, 200 Mg Oral Twice A Day 08/10/12 Discontinued [Estriol] , 08/10/12 Discontinued Benzonatate (Tessalon Perles) 200 Mg Capsule, 1 Each Oral Q8hr Prn 08/10/12 Discontinued Levofloxacin 500 Mg Tab, 1 Each Oral Daily 08/10/12 Discontinued Prednisone 20 Mg Tab, 40 Mg Oral Daily 08/10/12 Discontinued Tramadol Hcl 50 Mg Tab, 50 Mg Oral Every 4HRS 08/10/12 Discontinued Levofloxacin 500 Mg Tab, 1 Each Oral Daily 09/09/12 Discontinued [Benocar] , 02/08/14 Discontinued [Mexotretholate] , 02/08/14 Discontinued Acetaminophen/Hydrocodone Bitart 1 Each Tablet, 1 Each Oral Every 6 Hours as needed for Pain 02/08/14 Discontinued Estradiol 1 Mg Tablet, 1 Mg Oral Bedtime 05/30/14 Discontinued Meloxicam (Mobic) 15 Mg Tablet, 15 Mg Oral Bedtime 05/30/14 Discontinued Pantoprazole Sodium 40 Mg Tablet., 40 Mg Oral Bedtime 05/30/14 Discontinued Lansoprazole 30 Mg Capsule., 30 Mg Oral Bedtime 05/30/14 Discontinued Prednisone 10 Mg Tablet, 10 Mg Oral Daily 05/30/14 Discontinued Venlafaxine Hcl 75 Mg Cap.sr.24h, 75 Mg Oral Bedtime 05/30/14 Discontinued Olmesartan 20 Mg Tablet, 20 Mg Oral Bedtime 05/30/14 Discontinued Armodafinil 250 Mg Tablet, 125 Mg Oral Take Today At 9:00AM & 4:00PM Discontinued Alprazolam 0.25 Mg Tablet, 0.25 Mg Oral Twice A Day as needed for Anxiety 05/15 Discontinued Cyclobenzaprine Hcl (Flexeril) 10 Mg Tablet, 10 Mg Oral Three Times A Day as needed for Muscle Spasms 05/30/14 Discontinued Topiramate 25 Mg Tablet, 25 Mg Oral Twice A Day as needed for Headache Discontinued Metoclopramide Hcl (Reglan) 10 Mg Tablet, 10 Mg Oral Four Times Daily Discontinued Meloxicam (Mobic) 7.5 Mg Tablet, 1 Each Oral Daily 06/02/14 Discontinued Ibuprofen (Motrin) 800 Mg Tablet, 800 Mg Oral Twice A Day 06/07/14 Discontinued Acetaminophen 500 Mg Tablet, 1000 Mg Oral Every 6 Hours as needed for Pain Discontinued Meloxicam (Mobic) 7.5 Mg Tablet, 7.5 Mg Oral Bedtime 06/07/14 Discontinued Latanoprost 2.5 Ml Drops, 1 Drop Each Eye Bedtime 06/07/14 Discontinued Acetaminophen/Hydrocodone Bitart ([place]) 1 Ea Tablet, 1-2 Each Oral Every 6 Hours as needed for Pain 06/19/14 Discontinued Ondansetron 4 Mg Tab.rapdis, 4 Mg Oral Three Times A Day as needed for Nausea/ Vomiting 06/23/14 Discontinued Acetaminophen/Hydrocodone Bitart ([place]) 1 Ea Tablet, 1-2 Each Oral Every 6 Hours as needed for Pain 06/27/14 Discontinued Hydrocodone/Acetaminophen 1 Each Tablet, 1-2 Tab Oral Every 4HRS as needed for Pain 07/06/14 Discontinued Metoclopramide Hcl 10 Mg Tablet, 10 Mg Oral Four Times Daily as needed for Stomach Upset 11/27/14 Discontinued Diphenoxylate Hcl/Atropine 1 Each Tablet, 1 Tab Oral Four Times Daily as needed for Diarrhea 11/28/14 Discontinued Ondansetron 4 Mg Tab.rapdis, 4 Mg Oral Every 8HRS as needed for Nausea Discontinued Ibuprofen 800 Mg Tablet, 800 Mg Oral Three Times A Day as needed for Pain Discontinued Lansoprazole 30 Mg Capsule.dr, 30 Mg Oral Bedtime 11/28/14 Discontinued Armodafinil 250 Mg Tablet, 125 Mg Oral Twice A Day 11/28/14 Discontinued Latanoprost 2.5 Ml Drops, 1 Drop Each Eye Bedtime 11/28/14 Discontinued Alprazolam 0.25 Mg Tablet, 0.25 Mg Oral Twice A Day as needed for Anxiety Discontinued Cyclobenzaprine Hcl 10 Mg Tablet, 10 Mg Oral Three Times A Day as needed for Muscle Spasms 11/28/14 Discontinued Clopidogrel Bisulfate 75 Mg Tablet, 75 Mg Oral Daily 11/29/14 Discontinued Fenofibrate,Micronized 134 Mg Capsule, 134 Mg Oral Bedtime 11/29/14 Discontinued Atorvastatin Calcium 20 Mg Tablet, 40 Mg Oral Bedtime 11/29/14 Discontinued Carvedilol 3.125 Mg Tablet, 3.125 Mg Oral Twice A Day 11/29/14 Discontinued Amoxicillin/Potassium Clav 1 Each Tablet, 1 Tab Oral Twice A Day 04/20/15 Discontinued Clopidogrel Bisulfate 75 Mg Tablet, 75 Mg Oral Bedtime 04/20/15 Discontinued Promethazine Hcl (Phenergan Tablet) 25 Mg Tablet, 25 Mg Oral Every 6 Hours as needed for Nausea 04/20/15 Discontinued Acetaminophen 500 Mg Tablet, 1000 Mg Oral Every 6 Hours as needed for Pain Discontinued Metoprolol Tartrate 25 Mg Tablet, 12.5 Mg Oral Twice A Day 04/22/15 Discontinued Enalapril Maleate 2.5 Mg Tablet, 2.5 Mg Oral Daily 04/22/15 Discontinued Aspirin 81 Mg Tablet.dr, 81 Mg Oral Daily 04/22/15 Discontinued Pantoprazole Sodium 40 Mg Granpkt.dr, 40 Mg Oral Daily 04/22/15 Discontinued Pantoprazole Sodium 40 Mg Tablet.dr, 40 Mg Oral Bedtime 11/27/15 Discontinued Aspirin 81 Mg Tablet.dr, 81 Mg Oral Daily 11/27/15 Discontinued Clopidogrel Bisulfate 75 Mg Tablet, 75 Mg Oral Daily 11/27/15 Discontinued Cefdinir (Omnicef) 300 Mg Capsule, 300 Mg Oral Twice A Day 11/28/15 Discontinued Ciprofloxacin/Ciprofloxa Hcl 500 Mg Tbmp.24hr, 500 Mg Oral Twice A Day Discontinued Social History Social History Problem Response Recorded Date/Time Alcohol Use Past History 04/20/2015 4:33pm Recreational Drug Use Y THC, COCAINE, "SPEED" IN PAST--DENIES IV USE 2015 4:33pm Recent Foreign Travel No 05/10/2016 1:30pm Recent Infectious Disease Exposure No 05/10/2016 1:30pm Hospitalization with Isolation Denies 05/10/2016 1:30pm Sexually Transmitted Disease No 05/10/2016 1:30pm HIV/AIDS No 05/10/2016 1:30pm Smoking Status Current Everyday Smoker 05/10/2016 1:30pm Do you dip or chew tobacco? No 04/20/2015 4:31pm Type Used Cigarettes 05/10/2016 1:30pm Recent Hopitalizations Y 03/19/16 LITHOTRIPSY 05/10/2016 1:30pm Sexually Transmitted Disease No 05/10/2016 1:30pm Hospitalization with Isolation Denies 05/10/2016 1:30pm Hx Sexually Transmitted Disorders No 06/06/2010 6:48am Query Response Start Date Stop Date Smoking Status Current Everyday Smoker Hospital Discharge Instructions No hospital discharge instructions. Plan of Care Discharge Date 05/10/16 2:09pm Disposition 01 HOME, SELF-CARE Condition at Discharge Stable Instructions/Education Provided VIRAL SYNDROME Prescriptions See Medication Section Referrals NO,LOCAL PHYSICIAN - Primary Care Physician Additional Instructions/Education 1. Drink plenty of fluids 2. Use [id number] Imodium for your diarrhea 3. Use the nausea medication as directed Functional Status No functional status results. Allergies, Adverse Reactions, Alerts Allergen Type Severity Reaction Status Last Updated Morphine Adverse Reaction Mild N/V Active 07/04/14 Codeine Allergy Mild TAKES HYDROCODONE AT HOME Active 07/04/14 Pentazocine Adverse Reaction Mild N/V, HEAD ACHE Active 07/04/14 sulfamethoxazole ([id number]) Allergy Intermediate VOMITTING/MIGRAINE Active 03/14/16 Trimethoprim Allergy Intermediate VOMITTING/MIGRAINE Active 03/14/16 Immunizations No immunization records. Vital Signs Acute Vital Signs Vital Response Date/Time Temperature (Fahrenheit) 98.2 degrees F (97.6 - 99.5) 05/10/2016 1:30pm Temperature (Calculated Celsius) 36.03609 degrees C (36.4 - 37.5) 05/10/2016 1:30pm Temperature Source Temporal 05/10/2016 1:30pm Pulse Rate (adult) 98 bpm (60 - 90) 05/10/2016 1:30pm Respiratory Rate 18 bpm (12 - 24) 05/10/2016 1:30pm O2 Sat by Pulse Oximetry 97 % (88 - 100) 05/10/2016 1:30pm Blood Pressure 131/67 mm Hg 05/10/2016 1:30pm Blood Pressure Mean 88 mm Hg 05/10/2016 1:30pm Pain Numeric Pain Scale 0-No Pain 05/10/2016 1:30pm Height (Feet) 5 feet 05/10/2016 1:30pm Height (Inches) 2.00 inches 05/10/2016 1:30pm Height (Calculated Centimeters) 157.807218 cm 05/10/2016 1:30pm Weight (Pounds) 160 pounds 05/10/2016 1:30pm Weight (Ounces) 0.0 oz 05/10/2016 1:30pm Weight (Calculated Grams) 11465.595 gm 05/10/2016 1:30pm Weight (Calculated Kilograms) 72.411666 kilograms 05/10/2016 1:30pm Calculated BMI 28.9 05/10/2016 1:30pm Capillary Refill Capillary Refill Less Than 3 Seconds 05/10/2016 1:30pm Results Pending Laboratory Results Test Name Collection Date/Time Procedures No known history of procedures. Encounters Encounter Location Arrival/Admit Date Discharge/Depart Date Attending Provider Departed Emergency Room [facility] 05/10/16 1:22pm 05/10 2:09pm YONAS OWUSU APRN Registered Recurring [facility] 04/26/16 2:30pm EULOGIO JIN MD Registered Clinic [facility] 04/10/16 2:29pm EULOGIO JIN MD Recent Diagnosis
[2016-05-13] MEDS ORDERED: RT-ALBUTEROL/IPRATROPIUM 3 ML (DUONEB) VIAL INH ONE (09:30)
[2016-05-13] MEDS ORDERED: ASPIRIN 81 MG CHEW (CHILDREN'S ASA) PO ONE (09:30)
[2016-05-13 10:16] LABS: BASOPHILS % (AUTO) 0 % (0-10); EOSINOPHILS # (AUTO) 0.1 10^3/uL (0.0-0.3); EOSINOPHILS % (AUTO) 1 % (0-10); LYMPHOCYTES # (AUTO) 1.9 X 10^3 (1.0-4.0); LYMPHOCYTES % (AUTO) 13 % (12-44); MEAN CORPUSCULAR HEMOGLOBIN 31 PG (25-34); MEAN CORPUSCULAR HGB CONC 34 G/DL (32-36); MEAN CORPUSCULAR VOLUME 90 FL (80-99); MEAN PLATELET VOLUME 9.4 FL (7.4-10.4); MONOCYTES # (AUTO) 1.7 X 10^3 (0.0-1.0); MONOCYTES % (AUTO) 12 % (0-12); NEUTROPHILS # (AUTO) 10.8 X 10^3 (1.8-7.8); NEUTROPHILS % (AUTO) 75 % (42-75); PLATELET COUNT 409 10^3/uL (130-400); RED BLOOD COUNT 4.13 10^6/uL (4.35-5.85); RED CELL DISTRIBUTION WIDTH 15.6 % (10.0-14.5); WHITE BLOOD COUNT 14.5 10^3/uL (4.3-11.0)
[2016-05-13 10:30] LABS: INR 1.1 (0.8-1.4); PROTHROMBIN TIME PATIENT 13.9 SEC (12.2-14.7)
[2016-05-13 10:41] LABS: ALANINE AMINOTRANSFERASE 8 U/L (0-55); ANION GAP 11 MMOL/L (5-14); ASPARTATE AMINO TRANSFERASE 16 U/L (5-34); BILIRUBIN,TOTAL 0.5 MG/DL (0.1-1.0); BLOOD UREA NITROGEN 21 MG/DL (7-18); BUN/CREATININE RATIO 12; CALCIUM 10.1 MG/DL (8.5-10.1); CARBON DIOXIDE 19 MMOL/L (21-32); CHLORIDE 107 MMOL/L (98-107); CREATININE SERUM 1.81 MG/DL (0.60-1.30); GFR ESTIMATED 29; GLUCOSE 104 MG/DL (70-105); MAGNESIUM 1.9 MG/DL (1.8-2.4); POTASSIUM 3.7 MMOL/L (3.6-5.0); SODIUM 137 MMOL/L (135-145); TOTAL PROTEIN 7.6 G/DL (6.4-8.2)
--- NOTE | 2016-05-13 10:58 | Diagnostic Imaging Report ---
INDICATION: Left lower lung pain, right lung pain for past five days. Comparison study: Chest from 05/10/2016. FINDINGS: Frontal and lateral views of the chest demonstrate the lungs to be clear. The heart, mediastinum, and pulmonary vascularity are normal. No pleural effusions are present. IMPRESSION: Negative chest. Dictated by: Dictated on workstation # [id number]
[2016-05-13 11:03] LABS: ATYPICAL LYMPHOCYTES 2 %; BAND NEUTROPHILS 2 %; BASOPHILS % (MANUAL) 0 %; EOSINOPHILS % (MANUAL) 0 %; LYMPHOCYTES % (MANUAL) 12 %; NEUTROPHILS % (MANUAL) 74 %
--- NOTE | 2016-05-13 11:38 | ED General ---
General Chief Complaint: Respiratory Problems Stated Complaint: CHEST PAIN, SOA Nursing Triage Note: C/O WEAKNESS,DIARRHEA, CHEST DISCOMFORT FOR 5 DAYS. STATED SHE WAS JUST IN ER ET GOT CXR COMPLETED. WAS SO SOA THIS MORNING ET COULDN'T DO HER INHALER. STATES SHE HAS CHEST DISCOMFORT WHEN SHE BREATHS IN ET WHEN SHE COUGHS Nursing Sepsis Screen: No Definite Risk Source of Information: Patient Exam Limitations: No Limitations History of Present Illness Time Seen by Provider: 09:05 Initial Comments This 55-year-old woman presents to the emergency room with 5 days of cough, dyspnea, and chest heaviness presents to the emergency room. She is in mild distress due to her discomfort, cough, and shortness of breath.. Her chest is worse with inspiration. She reports that was migratory starting in the right upper chest then moving to the right lower chest then moving to the left lower chest. She has had so much difficulty with taking a deep breath that she has not been able to use her inhalers. She also reports having diarrhea for 14 days. She does have some history of COPD but continues to smoke. She also has history of coronary artery disease with stent placement. She is afebrile. Allergies and Home Medications Allergies Coded Allergies: sulfamethoxazole (Verified Allergy, Intermediate, VOMITTING/MIGRAINE, ) trimethoprim (Verified Allergy, Intermediate, VOMITTING/MIGRAINE, 03/14/16 ) codeine (Unverified Allergy, Mild, TAKES HYDROCODONE AT HOME, 07/04/14) morphine (Unverified Adverse Reaction, Mild, N/V, 07/04/14) pentazocine (Unverified Adverse Reaction, Mild, N/V, HEAD ACHE, 07/04/14) Home Medications Acetaminophen 500 Mg Tablet 1,000 MG PO Q8H PRN PRN MILD PAIN (Reported) Albuterol Sulfate 18 Gm Hfa.aer.ad 2 PUFF INH EVERY 4-6 HOURS PRN PRN SHORTNESS OF BREATH (Reported) Armodafinil 250 Mg Tablet 250 MG PO DAILY (Reported) Atorvastatin Calcium 20 Mg Tablet 20 MG PO BID (Reported) Ciprofloxacin HCl 500 Mg Tablet 500 MG PO BID (Reported) STARTED 05/11/16 FOR A 3 DAY THERAPY Estradiol 1 Mg Tablet 1 MG PO HS (Reported) Fenofibrate,Micronized 134 Mg Capsule 134 MG PO HS (Reported) Lansoprazole 30 Mg Capsule.dr 30 MG PO DAILY (Reported) Meloxicam 15 Mg Tablet 15 MG PO HS (Reported) Metoprolol Tartrate 25 Mg Tablet 12.5 MG PO BID (Reported) TAKES 1/2 OF A (25 MG) TABLET Nitroglycerin 0.4 Mg Tab.subl 0.4 MG SL PRN PRN PRN CHEST PAIN (Reported) Ondansetron 8 Mg Tab.rapdis 8 MG PO Q4H PRN PRN NAUSEA/VOMITING (Reported) Promethazine HCl 25 Mg Tablet 25 MG PO Q6H PRN PRN NAUSEA/VOMITING (Reported) Topiramate 50 Mg Tablet 25 MG PO BID (Reported) TAKES 1/2 OF A (50 MG) TABLET / LAST FILLED 03/04/16 #30 Venlafaxine HCl 75 Mg Cap.er.24h 75 MG PO HS (Reported) Constitutional: no symptoms reported EENTM: no symptoms reported Respiratory: see HPI Cardiovascular: see HPI Gastrointestinal: see HPI Genitourinary: no symptoms reported : No Musculoskeletal: see HPI Skin: no symptoms reported Psychiatric/Neurological: No Symptoms Reported Hematologic/Lymphatic: No Symptoms Reported Immunological/Allergic: no symptoms reported Past Yen[place]ko-Ivujds-Yenujg Hx Patient Social History Alcohol Use: Denies Use Recreational Drug Use: No (ETOH, THC) Type Used: Cigarettes Former Smoker/When Quit: 2nd Hand Smoke Exposure: No Recent Foreign Travel: No Contact w/Someone Who Travel: No Recent Infectious Disease Expo: No Recent Hopitalizations: Yes (03/19/16 LITHOTRIPSY) Immunizations Up To Date Tetanus Booster (TDap): More than 5yrs PED Vaccines UTD: No Date of Pneumonia Vaccine: May 01, 2015 Date of Influenza Vaccine: Feb 21, 2016 Seasonal Allergies Seasonal Allergies: Yes Surgeries HX Surgeries: Yes Surgeries: Abdominal (Colostomy and reversal), Appendectomy, Bowel Surgery, Breast, Cardiac, Coronary Stent, Gallbladder, Hysterectomy, Renal (Nephrostomy) Respiratory Hx Respiratory Disorders: Yes Respiratory Disorders: Asthma, COPD Cardiovascular Hx Cardiac Disorders: Yes (STENT PLACED OCTOBER 2014 AFTER [place]) Cardiac Disorders: Coronary Artery Disease, Heart Attack, High Cholesterol, Hypertension Neurological Hx Neurological Disorders: Yes (SEIZURE: 10 years ago last one) Neurological Disorders: Seizure Disorder 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 System Hx 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 Disorders: No Sexually Transmitted Disease: No HIV/AIDS: No 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 Disorders: Denies 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 Genitourinary Hx Genitourinary Disorders: Yes Genitourinary Disorders: Bladder Infection, Kidney Stones, Renal Failure (CK 80 ) Gastrointestinal Hx Gastrointestinal Disorders: Yes Gastrointestinal Disorders: Diverticulosis, Irritable Bowel Musculoskeletal Hx Musculoskeletal Disorders: Yes Musculoskeletal Disorders: Arthritis, Fibromyalgia, Rheumatoid Arthritis Endocrine Hx Endocrine Disorders: No HEENT HX ENT Disorders: Yes HEENT Disorders: Glaucoma Loss of Vision: Denies Hearing Impairment: Denies Cancer Hx Cancer: No Psychosocial Hx Psychiatric Problems: Yes Behavioral Health Disorders: Anxiety, Bipolar, Depression Integumentary HX Skin/Integumentary Disorder: Yes (SHINGLES) Blood Transfusions Hx Blood Disorders: No Adverse Reaction to a Blood Tr: No Family Medical History Significant Family History: No Pertinent Family Hx, Cancer Family Medial History: CANCER 19 MOTHER (PATIENT DOES NOT KNOW LOCATION) Physical Exam Vital Signs Vital Sign - Last 12Hours 05/13/16 05/13/16 09:07 09:39 Temp 97.7 Pulse 118 Resp 22 B/P 115/55 Pulse Ox 97 O2 Delivery Room Air O2 Flow Rate 2 Capillary Refill : Less Than 3 Seconds General Appearance: WD/WN Mild Distress HEENT: PERRL/EOMI Normal ENT Inspection Other (Oropharynx dry) Neck: Normal Inspection Respiratory: No Accessory Muscle Use No Respiratory Distress Wheezing Cardiovascular: No Edema No Murmur Tachycardia Gastrointestinal: Normal Bowel Sounds Non Tender Soft Extremity: Normal Inspection Calf Tenderness (Bilaterally) Neurologic/Psychiatric: Alert Oriented x3 No Motor/Sensory Deficits Normal Mood/Affect stone rubber II-XII Norm as Tested Skin: Normal Color Warm/Dry Date of ETT Placement: Feb 11, 2016 Time of ETT Placement: 1341 Progress/Results/Core Measures Results/Orders Lab Results Laboratory Tests Test 05/13/16 09:57 05/13/16 12:04 Range/Units Activated Partial Thromboplast Time 33 24-35 SEC Alanine Aminotransferase (ALT/SGPT) 8 0-55 U/L Albumin 4.0 3.2-4.5 G/DL Alkaline Phosphatase 92 40-136 U/L Anion Gap 11 5-14 MMOL/L Aspartate Amino Transf (AST/SGOT) 16 5-34 U/L Atypical Lymphocytes 2 % BUN/Creatinine Ratio 12 Band Neutrophils 2 % Basophils # (Auto) 0.0 0.0-0.1 10^3/uL Basophils % (Manual) 0 % Basophils (%) (Auto) 0 0-10 % Blood Urea Nitrogen 21 H 7-18 MG/DL C-Reactive Protein High Sensitivity 20.12 H 0.00-0.50 MG/DL Calcium Level 10.1 8.5-10.1 MG/DL Carbon Dioxide Level 19 L 21-32 MMOL/L Chloride Level 107 98-107 MMOL/L Creatinine 1.81 H 0.60-1.30 MG/DL D-Dimer 2.69 H 0.00-0.49 UG/ML Eosinophils # (Auto) 0.1 0.0-0.3 10^3/uL Eosinophils % (Manual) 0 % Eosinophils (%) (Auto) 1 0-10 % Estimat Glomerular Filtration Rate 29 Glucose Level 104 70-105 MG/DL Hematocrit 37 35-52 % Hemoglobin 12.6 11.5-16.0 G/DL INR Comment 1.1 0.8-1.4 Lymphocytes # (Auto) 1.9 1.0-4.0 X 10^3 Lymphocytes % (Manual) 12 % Lymphocytes (%) (Auto) 13 12-44 % Magnesium Level 1.9 1.8-2.4 MG/DL Mean Corpuscular Hemoglobin 31 25-34 PG Mean Corpuscular Hemoglobin Concent 34 32-36 G/DL Mean Corpuscular Volume 90 80-99 FL Mean Platelet Volume 9.4 7.4-10.4 FL Monocytes # (Auto) 1.7 H 0.0-1.0 X 10^3 Monocytes % (Manual) 10 % Monocytes (%) (Auto) 12 0-12 % Myoglobin 54.0 10.0-92.0 NG/ML Neutrophils # (Auto) 10.8 H 1.8-7.8 X 10^3 Neutrophils % (Manual) 74 % Neutrophils (%) (Auto) 75 42-75 % Platelet Count 409 H 130-400 10^3/uL Potassium Level 3.7 3.6-5.0 MMOL/L Prothrombin Time 13.9 12.2-14.7 SEC Red Blood Count 4.13 L 4.35-5.85 10^6/uL Red Cell Distribution Width 15.6 H 10.0-14.5 % Sodium Level 137 135-145 MMOL/L Total Bilirubin 0.5 0.1-1.0 MG/DL Total Protein 7.6 6.4-8.2 G/DL Toxic Granulation 1+ Troponin I < 0.30 <0.30 NG/ML White Blood Count 14.5 H 4.3-11.0 10^3/uL Lactic Acid Level 0.7 0.5-2.0 MMOL/L Micro Results Microbiology 05/13/16 Influenza Types A,B Antigen (DESI) - Final, Complete My Orders Orders-MARY GIRALDO MD Chest Pa/Lat (2 View) (05/13/16 09:05) Cbc With Automated Diff (05/13/16:27) Magnesium (05/13/16 09:27) Ekg Tracing (05/13/16:27) Cardiac Profile 1 (05/13/16:27) Comprehensive Metabolic Panel (05/13/16:27) Myoglobin Serum (05/13/16:27) Protime With Inr (05/13/16:27) Partial Thromboplastin Time (05/13/16 09:27) O2 (05/13/16 09:27) Monitor-Rhythm Ecg Trace Only (05/13/16:27) Lipid Panel (05/14/16 06:00) Aspirin Chewable Tablet (Baby Aspirin Ch (05/13/16 09:30) Saline Lock/Iv-Start (05/13/16 09:27) Hs C Reactive Protein (05/13/16 09:27) Fibrin Degradation Products (05/13/16 09:27) Albuterol/Ipra Inhalation Soln (Duoneb I (05/13/16 09:30) Svn Sm Volume Nebulizer Rt-Rfs (05/13/16 09:28) Manual Differential (05/13/16 09:57) Influenza A And B Antigens (05/13/16 10:31) Enoxaparin Injection (Lovenox Injection) (05/13/16 11:45) Levofloxacin 750 Mg/150 Ml Iv (Levaquin (05/13/16 11:45) Blood Culture (05/13/16 11:47) Lactic Acid Analyzer (05/13/16 11:47) Ns Iv 1000 Ml (Sodium Chloride 0.9%) (05/13/16 11:47) Ua Culture If Indicated (05/13/16 12:06) Medications Given in ED Vital Signs/I&O Vital Sign - Last 12Hours 05/13/16 05/13/16 05/13/16 05/13/16 13:27 13:30 13:30 14:38 Temp 99.1 Pulse 100 107 107 Resp 18 20 B/P 104/68 Pulse Ox 98 98 O2 Delivery Room Air Room Air 05/13/16 05/13/16 05/13/16 05/13/16 16:00 16:20 18:06 19:00 Temp 99.0 Pulse 110 104 Resp 20 B/P 133/61 Pulse Ox 99 96 O2 Delivery Room Air Room Air 05/13/16 05/13/16 05/13/16 20:00 20:10 21:00 Temp 98.8 Pulse 106 Resp 18 B/P 119/56 Pulse Ox 97 97 O2 Delivery Room Air Room Air Blood Pressure Mean: 75 Progress Note : Progress Note Patient received a DuoNeb treatment and a liter of IV fluids. Chest x-ray was read as clear by the radiologist but I have suspicion there is infiltrate in the left lower lung. Patient meets sepsis criteria if there is truly infection present with pneumonia. Patient also had an elevated d-dimer but renal function prevents use of IV contrast for angiogram of the chest at this time. Case was reviewed with Dr. Gomez who agrees with admission for treatment of possible sepsis and further evaluation of elevated d-dimer. Lovenox will be used for now and she will be hydrated and hopes that renal function improves. ECG Initial ECG Impression Date: May 13, 2016 Initial ECG Impression Time: 09:36 Initial ECG Rate: 98 Initial ECG Rhythm: Normal Sinus Comment Normal sinus rhythm with no ST elevation or depression. No abnormal intervals. Possible RVH. Diagnostic Imaging Diagonstic Imaging: Xray Plain Films/CT/US/NM/MRI: chest Comments Checks x-ray viewed by me and report reviewed. Compared with prior. I believe there to be an infiltrate in the left lower lobe. See report below: NAME: LEIGH HIGH MED REC#: [id number] PT STATUS: REG ER : 1960 PHYSICIAN: MARY GIRALDO MD ADMIT DATE: 05/13/16/ER Signed Date of Exam:05/13/16 CHEST PA/LAT (2 VIEW) INDICATION: Left lower lung pain, right lung pain for past five days. Comparison study: Chest from 05/10/2016. FINDINGS: Frontal and lateral views of the chest demonstrate the lungs to be clear. The heart, mediastinum, and pulmonary vascularity are normal. No pleural effusions are present. IMPRESSION: Negative chest. Dictated by: Dictated on workstation # [id number] Dict: 05/13/16 1053 Trans: 05/13/16 1105 MLAENA [id number] Interpreted by: AMALIA FRANCISCO MD Electronically signed by: AMALIA FRANCISCO MD 05/13/16 1107 Departure Communication Time/Spoke to Admitting Phy: 11:[address] Gomez Impression Impression: Primary Impression: Sepsis Qualified Code: A41.9 - Sepsis, unspecified organism Additional Impressions: Pneumonia Qualified Code: J18.1 - Lobar pneumonia, unspecified organism Chest pain Qualified Code: R07.9 - Chest pain, unspecified Elevated d-dimer Acute renal failure Qualified Code: N17.9 - Acute kidney failure, unspecified Disposition: 01 HOME, SELF-CARE Condition: Improved Decision to Admit Reason: Admit from ER (General) Decision to Admit/Date: May 13, 2016 Time/Decision to Admit Time: 11:40 Departure-Patient Inst. Referrals: NO,LOCAL PHYSICIAN (PCP/Family) Primary Care Physician MARY GIRALDO MD May 13, 2016 11:38
[2016-05-13] MEDS ORDERED: LEVOFLOXACIN 750 MG/150 ML IV 150 ML IV ONE (11:45)
[2016-05-13] MEDS ORDERED: ENOXAPARIN 80 MG/0.8 ML (LOVENOX) SYR SC ONE (11:45)
[2016-05-13] MEDS ORDERED: NS IV 1000 ML 1,000 ML IV ONE (11:47)
[2016-05-13 13:30] VITALS: BP 104/68
[2016-05-13] MEDS: NS IV 1000 ML 1,000 ML IV SCH ×2 (13:45→19:35)
[2016-05-13] MEDS ORDERED: CATHETER FLUSH 10 ML SYR IV PRN (13:45)
[2016-05-13] MEDS ORDERED: ENOXAPARIN 80 MG/0.8 ML (LOVENOX) SYR SC SCH (13:45)
[2016-05-13] MEDS ORDERED: ARMO250T2 PO (13:57)
[2016-05-13] MEDS ORDERED: ACET-93 PO (13:57)
[2016-05-13] MEDS ORDERED: ONDA4TAB10 PO (13:57)
[2016-05-13] MEDS ORDERED: CIPR-225 PO (13:57)
[2016-05-13] MEDS ORDERED: ONDA8TAB13 PO (14:04)
[2016-05-13] MEDS ORDERED: ACETAMINOPHEN 500 MG TAB (TYLENOL) PO PRN (15:30)
[2016-05-13 16:00] VITALS: BP 133/61
[2016-05-13] MEDS ORDERED: RT-ALBUTEROL/IPRATROPIUM 3 ML (DUONEB) VIAL INH PRN (16:30)
[2016-05-13] MEDS ORDERED: ONDANSETRON 8 MG (ZOFRAN) ORAL DISSOLVE TAB PO PRN (17:45)
[2016-05-13] MEDS ORDERED: NITROGLYCERIN SUBLINGUAL 0.4 MG TAB (NITROSTAT) SL PRN (17:45)
[2016-05-13 20:00] VITALS: BP 119/56
[2016-05-13] MEDS: RT-ALBUTEROL/IPRATROPIUM 3 ML (DUONEB) VIAL INH SCH (20:10)
[2016-05-13] MEDS: meTOprolol TARTRATE 25 MG (LOPRESSOR) TABLET PO SCH (20:54)
[2016-05-13] MEDS: ACETAMINOPHEN 500 MG TAB (TYLENOL) PO PRN (20:54)
[2016-05-13] MEDS: toPIRamate 25 MG (TOPAMAX) TAB PO SCH (20:54)
[2016-05-13] MEDS ORDERED: ATORVASTATIN 20 MG (LIPITOR) TABLET PO SCH (21:00)
[2016-05-13] MEDS ORDERED: TOPIRAMATE 25 MG PO SCH (21:00)
[2016-05-13] MEDS ORDERED: VENlafaxine XR 75 MG (EFFEXOR XR) CAP PO SCH (21:00)
[2016-05-13] MEDS ORDERED: ESTRADIOL 1 MG TAB (ESTRACE) PO SCH (21:00)
[2016-05-13] MEDS: ALPRAZolam 0.5 MG (XANAX) TAB PO SCH (21:23)
[2016-05-13] MEDS: ENOXAPARIN 80 MG/0.8 ML (LOVENOX) SYR SC SCH (23:00)
[2016-05-14] VITALS: BP 110/53
[2016-05-14] MEDS: NS IV 1000 ML 1,000 ML IV SCH ×2 (03:38→13:18)
[2016-05-14 04:00] VITALS: BP 119/73
[2016-05-14] MEDS: ACETAMINOPHEN 500 MG TAB (TYLENOL) PO PRN (04:59)
[2016-05-14 06:36] LABS: CHOLESTEROL 124 MG/DL (< 200); DIRECT LDL 53 MG/DL (1-129); TRIGLYCERIDES 164 MG/DL (<150); VLDL CHOLESTEROL 33 MG/DL (5-40)
[2016-05-14] MEDS: RT-ALBUTEROL/IPRATROPIUM 3 ML (DUONEB) VIAL INH SCH ×2 (06:42→12:42)
[2016-05-14] MEDS ORDERED: PANTOPRAZOLE 40 MG (PROTONIX) TAB PO SCH (07:00)
[2016-05-14] MEDS: toPIRamate 25 MG (TOPAMAX) TAB PO SCH (07:57)
[2016-05-14] MEDS: meTOprolol TARTRATE 25 MG (LOPRESSOR) TABLET PO SCH (07:57)
[2016-05-14] MEDS: ALPRAZolam 0.5 MG (XANAX) TAB PO SCH (07:57)
[2016-05-14 09:00] VITALS: BP 96/53
[2016-05-14] MEDS ORDERED: NON-FORMULARY MEDICATION 1 EA EA (Lansoprazole 30 MG) PO SCH (09:00)
[2016-05-14] MEDS: ENOXAPARIN 80 MG/0.8 ML (LOVENOX) SYR SC SCH (11:05)
[2016-05-14 12:00] VITALS: BP 125/58
--- NOTE | 2016-05-14 12:34 | Short Stay Summary-Hospitalist ---
HPI History of Present Illness: HPI/Chief Complaint The patient is a 55-year-old white female well-known to me through the years from presentations to the emergency room. She was seen on 05/10 with complaints of diarrhea. She states that that began about one week prior to that. She had had surgery or a procedure for kidney stones in late March pain. She really relates that she had a gotten to feeling better and was doing reasonably well until the diarrhea began one week ago. She was given an altered treatment program on 05/10 and sent home. She reappeared on 05/13 with complaints of right- sided chest pain, shortness of breath and phlegm, and generally feeling ill. Her white count was 14,500. The chest x-ray was negative for infiltrates. Since her arrival she has continued to complain about cough and right-sided chest pain. She also has asked for oxycodone and hydrocodone which she states that she took at home but was not revealed on her med reconciliation. When I entered the room she was sleeping quietly. After awakening her coughing and complaints of chest pain began. Source: patient Exam Limitations: no limitations Date Seen 05/14/16 Attending Physician Jose Wolff MD PCP No,Local Physician Referring Physician Date of Admission May 13, 2016 at 11:45 Home Medications & Allergies Home Medications Reviewed patient Home Medication Reconciliation Form Allergies Coded Allergies: sulfamethoxazole (Verified Allergy, Intermediate, VOMITTING/MIGRAINE, ) trimethoprim (Verified Allergy, Intermediate, VOMITTING/MIGRAINE, 03/14/16 ) codeine (Unverified Allergy, Mild, TAKES HYDROCODONE AT HOME, 07/04/14) morphine (Unverified Adverse Reaction, Mild, N/V, 07/04/14) pentazocine (Unverified Adverse Reaction, Mild, N/V, HEAD ACHE, 07/04/14) Past Pdnmlrm-Llgjig-Smlslc Hx Patient Social History Alcohol Use: Denies Use Recreational Drug Use: No Smoking Status: Current Everyday Smoker Former smoker/When Quit: Type Used: Cigarettes 2nd Hand Smoke Exposure: No Physical Abuse Screen: No Sexual Abuse: No Recent Foreign Travel: No Contact w/other who traveled: No Recent Hopitalizations: Yes (03/19/16 LITHOTRIPSY) Recent Infectious Disease Expo: No Immunizations Up To Date Tetanus Booster (TDap): More than 5yrs Date of Pneumonia Vaccine: May 01, 2015 Date of Influenza Vaccine: Feb 21, 2016 Seasonal Allergies Seasonal Allergies: Yes Surgeries HX Surgeries: Yes Surgeries: Abdominal (Colostomy and reversal), Appendectomy, Bowel Surgery, Breast, Cardiac, Coronary Stent, Gallbladder, Hysterectomy, Renal (Nephrostomy) Respiratory Hx Respiratory Disorders: Yes Respiratory Disorders: COPD Cardiovascular Hx Cardiovascular Disorders: Yes (STENT PLACED OCTOBER 2014 AFTER [place]) Cardiac Disorders: Coronary Artery Disease, Heart Attack, High Cholesterol, Hypertension Neurological Hx Neurological Disorders: Yes (SEIZURE: 10 years ago last one) Neurological Disorders: Seizure Disorder 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 System Hx 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 Disorders: No Sexually Transmitted Disease: No HIV/AIDS: No 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 Disorders: 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 Genitourinary Hx Genitourinary Disorders: Yes Genitourinary Disorders: Bladder Infection, Kidney Stones, Renal Failure (CK 80 ) Gastrointestinal Hx Gastrointestinal Disorders: Yes Gastrointestinal Disorders: Diverticulosis, Irritable Bowel Musculoskeletal Hx Musculoskeletal Disorders: Yes Musculoskeletal Disorders: Arthritis, Fibromyalgia, Rheumatoid Arthritis Endocrine Hx Endocrine Disorders: No HEENT HX ENT Disorders: Yes HEENT Disorders: Glaucoma Loss of Vision: Denies Hearing Impairment: Denies Cancer Hx Cancer: No Psychosocial Hx Psychiatric Problems: Yes Behavioral Health Disorders: Anxiety, Bipolar, Depression Integumentary HX Skin/Integumentary Disorder: Yes (SHINGLES) Blood Transfusions Hx Blood Disorders: No Adverse Reaction to a Blood Tr: No Family Medical History Significant Family History: No Pertinent Family Hx, Cancer Family Hx: CANCER 19 MOTHER (PATIENT DOES NOT KNOW LOCATION) Review of Systems Constitutional: see HPI EENTM: nose congestion Respiratory: cough dyspnea on exertion phlegm Cardiovascular: no symptoms reported Gastrointestinal: diarrhea Genitourinary: no symptoms reported Musculoskeletal: no symptoms reported Skin: no symptoms reported Psychiatric/Neurological: No Symptoms Reported Physical Exam Physical Exam Vital Signs Vital Sign - Last 12Hours 05/13/16 05/13/16 09:07 09:39 Temp 97.7 Pulse 118 Resp 22 B/P 115/55 Pulse Ox 97 O2 Delivery Room Air O2 Flow Rate 2 Capillary Refill : Less Than 3 SecondsLess Than 3 Seconds General Appearance: Moderate Distress Eyes: Bilateral Eye Normal Inspection HEENT: Normal ENT Inspection Neck: Normal Inspection Respiratory: Other (coughing during exam. Rhonchi were noted on the right which cleared when I asked her to take a deep breath and cough.) Cardiovascular: Regular Rate, Rhythm No Edema No Gallop No JVD No Murmur Normal Peripheral Pulses Gastrointestinal: Normal Bowel Sounds No Organomegaly No Pulsatile Mass Non Tender Soft Back: Normal Inspection No CVA Tenderness No Vertebral Tenderness Extremity: Normal Capillary Refill Normal Inspection Normal Range of Motion Non Tender No Calf Tenderness No Pedal Edema Neurologic/Psychiatric: Alert Oriented x3 No Motor/Sensory Deficits Normal Mood/Affect Skin: Normal Color Warm/Dry Lymphatic: No Adenopathy Results Results/Procedures Lab Laboratory Tests 05/13/16 09:57 Short Stay Diagnosis Discharge Diagnosis-Short Stay Admission Diagnosis 1.right-sided chest pain 2.possible pneumonia 3.mild renal insufficiency/ dehydration Final Discharge Diagnosis 1.right sided pleurisy. 2.COPD with bronchitis 3.past history of bipolar illness Conclusion Plan Discharge to complete treatment at home Clinical Quality Measures DVT/VTE Risk/Contraindication: Risk Factor Score Per Nursin RFS Level Per Nursing on Admit: 4+=Very High JOSE WOLFF MD May 14, 2016 12:34
[2016-05-14] MEDS ORDERED: LEVO750T39 PO (12:40)
[2016-05-14] MEDS ORDERED: IBUP-1780 PO (12:41)
--- NOTE | 2016-05-14 12:43 | Discharge Inst-Simple/Standard ---
Discharge Inst-Standard Discharge Medications New, Converted or Re-Newed RX: Transmitted to Pharmacy Patient Instructions/Follow Up Plan of Care/Instructions/FU: Use your nebulizer with albuterol every 4-6 hours Use ibuprofen 3 times daily for your pleurisy. You may use her hydrocodone for other body aches or coughing. Take the Levaquin as directed Plenty of liquids to avoid dehydration Activity as Tolerated: Yes Goal: Return to usual function Discharge Diet: No Restrictions Return to The Hospital For: Decline in performance LORENZO WOLFF MD May 14, 2016 12:43
[2016-05-15] MEDS ORDERED: LEVOFLOXACIN 750 MG TAB (LEVAQUIN) PO SCH (11:00)
--- NOTE | 2016-05-17 06:52 | Physician Query-General Query ---
Physician Query-General Query to Physician: [facility] SOP Coding Query Via [facility] Exhibit D2 Further Specificity Template The medical record reflects the following clinical scenario: History/Risk factors: (Smoker with COPD,suspicion of infiltrate left lower lung ) Clinical Findings: (So short of breath that she has not been able to use inhalers,cough/phlegm) Treatment: (Duoneb breathing treatment and Levofloxacin IV 150ml@100mls/hr) Question: Can you further specify (Bronchitis) per the clinical indicators above? Please document a response in the Progress Notes or Discharge Summary. 1. (Acute Bronchitis) 2. (Chronic Bronchitis) 3. Other, with explanation of clinical findings 4. Clinically undetermined, no explanation for clinical findings In responding to this query, please exercise your independent professional judgment. The purpose of this communication is to more accurately reflect the complexity of your patients condition. The fact that a question is asked does not imply that any particular answer is desired or expected. Thank you for your timely response to this clarification. THIS PHYSICIAN QUERY FORM IS A PERMANENT PART OF THE MEDICAL RECORD PHYSICIAN RESPONSE: Based on the clinical findings in the record, please respond to the query above on this document as an addendum. Possible, probable, or questionable diagnosis can be coded for INPATIENTS ONLY. Physician Response: Physician Response Chronic bronchitis/tobaccoism If you have questions please contact: Medical Typist:Juana Villavicencio CCS,CCDS Ext:[phone] Thank you for your time and cooperation. Clinical Porter Luggage/Medical Typist This is a permanent part of the medical record JUANA VILLAVICENCIO May 17, 2016 06:52 LORENZO WOLFF MD Jun 05, 2016 14:04
--- NOTE | 2016-05-17 07:04 | Physician Query-General Query ---
Physician Query-General Query to Physician: [facility] SOP Coding Query Via [facility] Exhibit D4 Conflicting Diagnosis Template The medical record reflects the following clinical scenario: History/Risk factors: (Dehydration, Renal function prevents use of IV contrast for angiogram) Clinical Findings: (Creatinine 1.81, BUN 21) Treatment: (IV Sodium Chloride 1,000ml/hr/ Per ED, "patient will be hydrated and hopes that renal function improves") Question: Do you agree with the impression of (Acute Renal Failure) per (Dr. Morse)? Please document a response in Progress Notes or Discharge Summary. 1. Yes ___ 2. No ___ 3. Other, with explanation of clinical findings 4. Clinically undetermined, no explanation for clinical findings In responding to this query, please exercise your independent professional judgment. The purpose of this communication is to more accurately reflect the complexity of your patients condition. The fact that a question is asked does not imply that any particular answer is desired or expected. Thank you for your timely response to this clarification. THIS PHYSICIAN QUERY FORM IS A PERMANENT PART OF THE MEDICAL RECORD PHYSICIAN RESPONSE: Based on the clinical findings in the record, please respond to the query above on this document as an addendum. Possible, probable, or questionable diagnosis can be coded for INPATIENTS ONLY. Physician Response: Physician Response Creatinine was 1.81 on 05/13. It had been 1.56 on 05/10. I believe this to be a trivial variation and certainly not related to renal failure If you have questions please contact: Judo Teacher:Juana Badillo CCS,CCDS Ext:[phone] Thank you for your time and cooperation. Clinical Wharf Tender/Judo Teacher This is a permanent part of the medical record JUANA BADILLO May 17, 2016 07:04 LORENZO WOLFF MD Jun 05, 2016 14:09
== END 2016-05-14 14:21 | disposition home or self-care (01) | DRG 195 ==
LOC: EDUNIT# 08:36 → ER 08:37 → 4TH 11:45
PROVIDERS: ADMIT Internal Medicine; ATTEND Internal Medicine
DX: R09.1 Pleurisy (principal); J44.9 Chronic obstructive pulmonary disease, unspecified; J45.909 Unspecified asthma, uncomplicated; E86.0 Dehydration; N28.9 Disorder of kidney and ureter, unspecified; F17.210 Nicotine dependence, cigarettes, uncomplicated; F31.9 Bipolar disorder, unspecified; F41.9 Anxiety disorder, unspecified; I25.10 Atherosclerotic heart disease of native coronary artery without angina pectoris; I25.2 Old myocardial infarction; I10 Essential (primary) hypertension; G40.909 Epilepsy, unspecified, not intractable, without status epilepticus; M06.9 Rheumatoid arthritis, unspecified; M79.7 Fibromyalgia; E78.00 Pure hypercholesterolemia, unspecified; R79.1 Abnormal coagulation profile; Z95.5 Presence of coronary angioplasty implant and graft
CPT/HCPCS: 36415; 71020; 80053; 80061; 81000; 83605; 83735; 83874; 84484; 85007; 85025; 85027; 85379; 85610; 85730; 86141; 87040; 87088; 87186; 87804; 93005; 93041; 94640; 94760; 96361; 96365; 96372; 96374

== ENCOUNTER 2016-07-17 09:54 | Emergency (ER) | payer MEDICARE, MEDICAID ==
[~2016-07-17] VITALS: Ht 157.5 cm; Wt 67.6 kg
[~2016-07-17 09:54] MED LIST changes: +ACET-93 PO; +LEVO750T39 PO; +ONDA4TAB10 PO; +ONDA8TAB13 PO
[2016-07-17] MEDS ORDERED: KETOROLAC 30 MG/ML VIAL IVP STA (10:02)
[2016-07-17] MEDS ORDERED: NS IV 1000 ML 1,000 ML IV STA (10:02)
[2016-07-17 10:18] LABS: BASOPHILS % (AUTO) 0 % (0-10); EOSINOPHILS # (AUTO) 0.1 10^3/uL (0.0-0.3); EOSINOPHILS % (AUTO) 1 % (0-10); LYMPHOCYTES # (AUTO) 1.8 X 10^3 (1.0-4.0); LYMPHOCYTES % (AUTO) 17 % (12-44); MEAN CORPUSCULAR HEMOGLOBIN 29 PG (25-34); MEAN CORPUSCULAR HGB CONC 32 G/DL (32-36); MEAN CORPUSCULAR VOLUME 91 FL (80-99); MEAN PLATELET VOLUME 9.3 FL (7.4-10.4); MONOCYTES # (AUTO) 1.7 X 10^3 (0.0-1.0); MONOCYTES % (AUTO) 16 % (0-12); NEUTROPHILS # (AUTO) 6.9 X 10^3 (1.8-7.8); NEUTROPHILS % (AUTO) 65 % (42-75); PLATELET COUNT 524 10^3/uL (130-400); RED BLOOD COUNT 4.09 10^6/uL (4.35-5.85); RED CELL DISTRIBUTION WIDTH 14.8 % (10.0-14.5); WHITE BLOOD COUNT 10.6 10^3/uL (4.3-11.0)
--- NOTE | 2016-07-17 10:37 | Diagnostic Imaging Report ---
INDICATION: Nausea, vomiting, and diarrhea. COMPARISON: 05/13/2016. FINDINGS: There are tiny subcentimeter dense nodular foci bilaterally, likely old granulomatous residua and stable. No dominant or noncalcified chest nodule. The hilar and mediastinal contours are normal. No failure, effusion, pneumothorax, or acute pathology. IMPRESSION: Stable chronic findings. Dictated by: Dictated on workstation # [id number]
--- NOTE | 2016-07-17 10:43 | ED General ---
General Chief Complaint: Abdominal/GI Problems Stated Complaint: N/V/D Nursing Triage Note: PT TO [facility] WITH CC OF NVD, DX WITH C-DIFF AND PNEUMONIA LAST WEEK. Nursing Sepsis Screen: Possible Sepsis Risk Source of Information: Patient Exam Limitations: No Limitations History of Present Illness Time Seen by Provider: 09:57 Initial Comments Here with report of nausea, vomiting and diarrhea and not feeling well. States that she has a headache. Reports that this is been going on for the last 2-3 days. She was treated for pneumonia last week and has finished those antibiotics. Denies fevers currently but does report chills. Overall states that she just does not feel well. Timing/Duration: 1 Week, Getting Worse Severity: Moderate Associated Systoms: No Chest Pain, No Cough, Fever/Chills, Headaches, Malaise, Nausea/Vomiting, No Shortness of Air, Weakness Allergies and Home Medications Allergies Coded Allergies: sulfamethoxazole (Verified Allergy, Intermediate, VOMITTING/MIGRAINE, ) trimethoprim (Verified Allergy, Intermediate, VOMITTING/MIGRAINE, 03/14/16 ) codeine (Unverified Allergy, Mild, TAKES HYDROCODONE AT HOME, 07/04/14) morphine (Unverified Adverse Reaction, Mild, N/V, 07/04/14) pentazocine (Unverified Adverse Reaction, Mild, N/V, HEAD ACHE, 07/04/14) Home Medications Acetaminophen 500 Mg Tablet, 1,000 MG PO Q8H PRN for MILD PAIN, (Reported) Albuterol Sulfate 18 Gm Hfa.aer.ad, 2 PUFF INH EVERY 4-6 HOURS PRN for SHORTNESS OF BREATH, (Reported) Armodafinil 250 Mg Tablet, 250 MG PO DAILY, (Reported) Atorvastatin Calcium 20 Mg Tablet, 20 MG PO BID, (Reported) Estradiol 1 Mg Tablet, 1 MG PO HS, (Reported) Fenofibrate,Micronized 134 Mg Capsule, 134 MG PO HS, (Reported) Ibuprofen 800 Mg Tablet, 800 MG PO Q8H PRN for PAIN, #90 Prescribed by: LORENZO WOLFF on 05/14/16 1241 Lansoprazole 30 Mg Capsule.dr, 30 MG PO DAILY, (Reported) Levofloxacin 750 Mg Tablet, 750 MG PO Q48H, #5 Prescribed by: LORENZO WOLFF on 05/14/16 1240 Meloxicam 15 Mg Tablet, 15 MG PO HS, (Reported) Metoprolol Tartrate 25 Mg Tablet, 12.5 MG PO BID, (Reported) TAKES 1/2 OF A (25 MG) TABLET Nitrofurantoin Macrocrystal 100 Mg Capsule, 100 MG PO BID, #14 Ref 0 Prescribed by: RAMÍREZ GRIER on 07/17/16 1412 Nitroglycerin 0.4 Mg Tab.subl, 0.4 MG SL PRN PRN for CHEST PAIN, (Reported) Ondansetron 8 Mg Tab.rapdis, 8 MG PO Q4H PRN for NAUSEA/VOMITING, (Reported) Promethazine HCl 25 Mg Tablet, 25 MG PO Q6H PRN for NAUSEA/VOMITING, (Reported) Topiramate 50 Mg Tablet, 25 MG PO BID, (Reported) TAKES 1/2 OF A (50 MG) TABLET / LAST FILLED 03/04/16 #30 Venlafaxine HCl 75 Mg Cap.er.24h, 75 MG PO HS, (Reported) Constitutional: see HPI, chills, No fever, weakness EENTM: see HPI Respiratory: see HPI, cough Cardiovascular: no symptoms reported, No chest pain, No edema Gastrointestinal: diarrhea, nausea, vomiting Genitourinary: no symptoms reported Musculoskeletal: no symptoms reported Skin: no symptoms reported Psychiatric/Neurological: Anxiety, Headache All Other Systems Reviewed Negative Unless Noted: Yes Past Lphkefn-Skbnra-Floqbq Hx Patient Social History Alcohol Use: Denies Use Recreational Drug Use: No (ETOH, THC) Smoking Status: Current Everyday Smoker Type Used: Cigarettes 2nd Hand Smoke Exposure: No Recent Foreign Travel: No Contact w/Someone Who Travel: No Recent Infectious Disease Expo: No Recent Hopitalizations: Yes (03/19/16 LITHOTRIPSY) Immunizations Up To Date Tetanus Booster (TDap): More than 5yrs PED Vaccines UTD: No Date of Pneumonia Vaccine: May 01, 2015 Date of Influenza Vaccine: Feb 21, 2016 Seasonal Allergies Seasonal Allergies: Yes Surgeries HX Surgeries: Yes Surgeries: Abdominal, Appendectomy, Bowel Surgery, Breast, Cardiac, Coronary Stent, Gallbladder, Hysterectomy, Renal Respiratory Hx Respiratory Disorders: Yes Respiratory Disorders: Asthma, COPD Cardiovascular Hx Cardiac Disorders: Yes (STENT PLACED OCTOBER 2014 AFTER [place]) Cardiac Disorders: Coronary Artery Disease, Heart Attack, High Cholesterol, Hypertension Neurological Hx Neurological Disorders: Yes (SEIZURE: 10 years ago last one) Neurological Disorders: Seizure Disorder 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 System Hx 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 Disorders: No Sexually Transmitted Disease: No HIV/AIDS: No 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 Disorders: Denies 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 Genitourinary Hx Genitourinary Disorders: Yes Genitourinary Disorders: Bladder Infection, Kidney Stones, Renal Failure Gastrointestinal Hx Gastrointestinal Disorders: Yes Gastrointestinal Disorders: Diverticulosis, Irritable Bowel Musculoskeletal Hx Musculoskeletal Disorders: Yes Musculoskeletal Disorders: Arthritis, Fibromyalgia, Rheumatoid Arthritis Endocrine Hx Endocrine Disorders: No HEENT HX ENT Disorders: Yes HEENT Disorders: Glaucoma Loss of Vision: Denies Hearing Impairment: Denies Cancer Hx Cancer: No Psychosocial Hx Psychiatric Problems: Yes Behavioral Health Disorders: Anxiety, Bipolar, Depression Integumentary HX Skin/Integumentary Disorder: Yes (SHINGLES) Blood Transfusions Hx Blood Disorders: No Adverse Reaction to a Blood Tr: No Reviewed Nursing Assessment Reviewed/Agree w Nursing PMH: Yes Family Medical History Significant Family History: No Pertinent Family Hx, Cancer Family Medial History: CANCER 19 MOTHER (PATIENT DOES NOT KNOW LOCATION) Physical Exam Vital Signs Vital Sign - Last 12Hours 07/17/16 09:58 Temp 97.2 Pulse 115 Resp 22 B/P (MAP) 118/50 Pulse Ox 95 O2 Delivery Room Air Capillary Refill : Less Than 3 Seconds General Appearance: No Apparent Distress, WD/WN HEENT: PERRL/EOMI, Pharynx Normal Neck: Non Tender, Supple Respiratory: Lungs Clear, Normal Breath Sounds Cardiovascular: No Murmur, Tachycardia Gastrointestinal: Non Tender, Soft Back: Normal Inspection, No CVA Tenderness, No Vertebral Tenderness Extremity: Non Tender, No Calf Tenderness Neurologic/Psychiatric: Alert, No Motor/Sensory Deficits Skin: Normal Color, Warm/Dry Focused Exam Lactic Acid Level Date of ETT Placement: Feb 11, 2016 Time of ETT Placement: 1341 Progress/Results/Core Measures Results/Orders Lab Results Laboratory Tests Test 07/17/16 10:05 07/17/16 12:00 Range/Units White Blood Count 10.6 4.3-11.0 10^3/uL Red Blood Count 4.09 L 4.35-5.85 10^6/uL Hemoglobin 12.0 11.5-16.0 G/DL Hematocrit 37 35-52 % Mean Corpuscular Volume 91 80-99 FL Mean Corpuscular Hemoglobin 29 25-34 PG Mean Corpuscular Hemoglobin Concent 32 32-36 G/DL Red Cell Distribution Width 14.8 H 10.0-14.5 % Platelet Count 524 H 130-400 10^3/uL Mean Platelet Volume 9.3 7.4-10.4 FL Neutrophils (%) (Auto) 65 42-75 % Lymphocytes (%) (Auto) 17 12-44 % Monocytes (%) (Auto) 16 H 0-12 % Eosinophils (%) (Auto) 1 0-10 % Basophils (%) (Auto) 0 0-10 % Neutrophils # (Auto) 6.9 1.8-7.8 X 10^3 Lymphocytes # (Auto) 1.8 1.0-4.0 X 10^3 Monocytes # (Auto) 1.7 H 0.0-1.0 X 10^3 Eosinophils # (Auto) 0.1 0.0-0.3 10^3/uL Basophils # (Auto) 0.0 0.0-0.1 10^3/uL Sodium Level 135 135-145 MMOL/L Potassium Level 3.5 L 3.6-5.0 MMOL/L Chloride Level 107 98-107 MMOL/L Carbon Dioxide Level 18 L 21-32 MMOL/L Anion Gap 10 5-14 MMOL/L Blood Urea Nitrogen 25 H 7-18 MG/DL Creatinine 1.67 H 0.60-1.30 MG/DL Estimat Glomerular Filtration Rate 32 BUN/Creatinine Ratio 15 Glucose Level 90 70-105 MG/DL Lactic Acid Level 0.78 0.50-2.00 MMOL/L Calcium Level 9.1 8.5-10.1 MG/DL Magnesium Level 2.0 1.8-2.4 MG/DL Total Bilirubin 0.4 0.1-1.0 MG/DL Aspartate Amino Transf (AST/SGOT) 14 5-34 U/L Alanine Aminotransferase (ALT/SGPT) 8 0-55 U/L Alkaline Phosphatase 71 40-136 U/L Troponin I < 0.30 <0.30 NG/ML C-Reactive Protein High Sensitivity 25.08 H 0.00-0.50 MG/DL Total Protein 7.1 6.4-8.2 G/DL Albumin 3.6 3.2-4.5 G/DL Urine Color MAXWELL H Urine Clarity CLEAR Urine pH 5 5-9 Urine Specific [place] 1.025 H 1.016-1.022 Urine Protein 2+ H NEGATIVE Urine Glucose (UA) NEGATIVE NEGATIVE Urine Ketones NEGATIVE NEGATIVE Urine Nitrite NEGATIVE NEGATIVE Urine Bilirubin NEGATIVE NEGATIVE Urine Urobilinogen NORMAL NORMAL MG/DL Urine Leukocyte Esterase 1+ H NEGATIVE Urine RBC (Auto) 2+ H NEGATIVE Urine RBC 10-25 H /HPF Urine WBC 2-5 /HPF Urine Crystals PRESENT H /LPF Urine Amorphous Sediment FEW MOLLY URATES H /LPF Urine Bacteria FEW H /HPF Urine Casts PRESENT /LPF Urine Hyaline Casts 2-5 H /LPF Urine Granular Casts 25-50 H /LPF Urine Mucus SMALL H /LPF Urine Culture Indicated YES My Orders Orders - RAMÍREZ GRIER MD Cbc With Automated Diff (07/17/16 10:02) Comprehensive Metabolic Panel (07/17/16 10:02) Hs C Reactive Protein (07/17/16 10:02) Magnesium (07/17/16 10:02) Troponin I (07/17/16 10:02) Ua Culture If Indicated (07/17/16 10:02) Chest 1 View, Ap/Pa Only (07/17/16 10:02) Ketorolac Injection (Toradol Injection) (07/17/16 10:02) Ns Iv 1000 Ml (Sodium Chloride 0.9%) (07/17/16 10:02) Ekg Tracing (07/17/16 10:02) Monitor-Rhythm Ecg Trace Only (07/17/16 10:02) Lactic Acid Analyzer (07/17/16 10:02) Blood Culture (07/17/16 10:02) Ct Head Wo (07/17/16 12:25) Urine Culture (07/17/16 12:00) Fentanyl Injection (Sublimaze Injection (07/17/16 12:32) Vital Signs/I&O Vital Sign - Last 12Hours 07/17/16 09:58 Temp 97.2 Pulse 115 Resp 22 B/P (MAP) 118/50 Pulse Ox 95 O2 Delivery Room Air Blood Pressure Mean: 72 Progress Note : Progress Note Seen and evaluated. IV, labs, EKG and chest x-ray ordered. We will complete a 500 normal saline IV bolus was initiated by EMS and repeat was 1 L bolus. Monitor patient. UA ordered and obtained. Patient is having persistent pain despite 15 mg of Toradol IV. Fentanyl 50 g IV ordered. Monitor patient. 1345 : Patient's heart rate has improved significantly and she is feeling better. She is requesting hydrocodone for home. I will have her follow up with her DrArsalan for narcotic prescription but will initiate outpatient treatment for urinary tract infection. She verbalizes understanding. Discharged home with return precautions. Patient verbalize understanding instructions and agreement with plan. Patient instructed to follow-up with her doctor for further evaluation regarding CT versus MRI as needed if headaches continue. ECG Initial ECG Impression Date: Jul 17, 2016 Initial ECG Impression Time: 12:47 Initial ECG Rate: 91 Initial ECG Rhythm: Normal Sinus Comment Sinus rhythm with left axis deviation. No evidence of ST elevation [place]. Similar to previous of 05/13/16. Interpreted by me. Diagnostic Imaging Diagonstic Imaging: Xray Plain Films/CT/US/NM/MRI: chest Comments VIA [facility], [facility] [place], [place] NAME: LEIGH HIGH MED REC#: [id number] PT STATUS: REG ER : 1960 PHYSICIAN: RAMÍREZ GRIER MD ADMIT DATE: 07/17/16/ER Draft Date of Exam:07/17/16 CHEST 1 VIEW, AP/PA ONLY INDICATION: Nausea, vomiting, and diarrhea. COMPARISON: 05/13/2016. FINDINGS: There are tiny subcentimeter dense nodular foci bilaterally, likely old granulomatous residua and stable. No dominant or noncalcified chest nodule. The hilar and mediastinal contours are normal. No failure, effusion, pneumothorax, or acute pathology. IMPRESSION: Stable chronic findings. Dictated on workstation # [id number] Dict: 07/17/16 1029 Trans: 07/17/[address] [place] [address] [id number] Interpreted by: JANIYA ECHEVERRIA Electronically signed by: Diagonstic Imaging: CT Plain Films/CT/US/NM/MRI: head Comments NAME: ANILALEIGH MED REC#: [id number] PT STATUS: REG ER : 1960 PHYSICIAN: RAMRÍEZ GRIER MD ADMIT DATE: 07/17/16/ER Signed Date of Exam: 07/17/16 CT HEAD WO PROCEDURE: CT head without contrast. TECHNIQUE: Multiple contiguous axial images were obtained through the brain without the use of intravenous contrast. INDICATION: Headache. Nausea and vomiting. Findings: There is no intracranial hemorrhage, edema or mass effect. There is mild hypodensity seen in the white matter adjacent to the head of the caudate to the right side involving an area of 20.2 CM. This could relate to early manifestation of chronic microvascular ischemic changes. Similarly a subcortical area of white matter hypodensity seen in the right parietal region. There is no significant mass effect. No hydrocephalus. No extra-axial fluid collection seen. The calvarium, the paranasal sinuses and the orbits visualized portions appear grossly unremarkable. IMPRESSION: Nonspecific white matter hypodensities adjacent to the right caudate head and in the right parietal region could relate to early manifestation of chronic progressive ischemic changes. If symptoms persist, then MRI of the head could be helpful for further evaluation. Dictated by: Dictated on workstation # [id number] Dict: 07/17/16 1301 Trans: 07/17/16 1348 Interpreted by: AIDEE DELGADO MD Electronically signed by: AIDEE DELGADO MD 07/17/16 1348 Departure Impression Impression: Primary Impression: Nausea vomiting and diarrhea Additional Impressions: Dehydration Headache Qualified Codes: R51 - Headache UTI (urinary tract infection) Qualified Codes: N30.00 - Acute cystitis without hematuria Disposition: 01 HOME, SELF-CARE Condition: Stable Departure-Patient Inst. Decision time for Depature: 14:10 Referrals: NO,LOCAL PHYSICIAN (PCP/Family) Primary Care Physician Patient Instructions: Dehydration, Adult (DC), Diarrhea in Adolescents and Adults, Headache, Adult (DC), Nausea and Vomiting, Adult, Urinary Tract Infection, Adult (DC) Add. Discharge Instructions: All discharge instructions reviewed with patient and/or family. Voiced understanding. Clear liquid diet for 24 hours and then advance as tolerated. Drink plenty of fluids when taking small sips frequently. You need to follow-up with your DrArsalan in one to 2 days for recheck and further evaluation and social he related to the headache. Your CT scan shows chronic changes and may need further evaluation with MRI at some point and you can talk with her doctor about this as well. Return for worse pain, fever, vomiting, weakness, breathing problems or other concerns as needed. Take medications as directed. You should talk your doctor about further pain medication prescriptions as well. Scripts Nitrofurantoin Macrocrystal (Nitrofurantoin) 100 Mg Capsule 100 MG PO BID, #14 CAP 0 Refills Prov: RAMÍREZ GRIER MD 07/17/16 RAMÍREZ GRIER MD Jul 17, 2016 10:43
[2016-07-17 10:44] LABS: TROPONIN I < 0.30 NG/ML (<0.30)
[2016-07-17 10:45] LABS: ALANINE AMINOTRANSFERASE 8 U/L (0-55); ALBUMIN 3.6 G/DL (3.2-4.5); ANION GAP 10 MMOL/L (5-14); ASPARTATE AMINO TRANSFERASE 14 U/L (5-34); BILIRUBIN,TOTAL 0.4 MG/DL (0.1-1.0); BLOOD UREA NITROGEN 25 MG/DL (7-18); BUN/CREATININE RATIO 15; CALCIUM 9.1 MG/DL (8.5-10.1); CARBON DIOXIDE 18 MMOL/L (21-32); CHLORIDE 107 MMOL/L (98-107); CREATININE SERUM 1.67 MG/DL (0.60-1.30); GFR ESTIMATED 32; GLUCOSE 90 MG/DL (70-105); POTASSIUM 3.5 MMOL/L (3.6-5.0); SODIUM 135 MMOL/L (135-145); TOTAL PROTEIN 7.1 G/DL (6.4-8.2)
[2016-07-17 10:46] LABS: hs C REACTIVE PROTEIN 25.08 MG/DL (0.00-0.50)
[2016-07-17 12:08] LABS: BILIRUBIN,URINE NEGATIVE (NEGATIVE); KETONES,URINE NEGATIVE (NEGATIVE); LEUKOCYTE ESTERASE ,URINE 1+ (NEGATIVE); NITRITE,URINE NEGATIVE (NEGATIVE); PH,URINE 5 (5-9); PROTEIN,URINE 2+ (NEGATIVE); UROBILINOGEN,URINE NORMAL (NORMAL)
[2016-07-17 12:26] LABS: GRANULAR CASTS,URINE 25-50 /LPF
[2016-07-17] MEDS ORDERED: fentaNYL INJECTION 100 MCG/2 ML AMP IVP STA (12:32)
--- NOTE | 2016-07-17 13:12 | Diagnostic Imaging Report ---
PROCEDURE: CT head without contrast. TECHNIQUE: Multiple contiguous axial images were obtained through the brain without the use of intravenous contrast. INDICATION: Headache. Nausea and vomiting. Findings: There is no intracranial hemorrhage, edema or mass effect. There is mild hypodensity seen in the white matter adjacent to the head of the caudate to the right side involving an area of 20.2 CM. This could relate to early manifestation of chronic microvascular ischemic changes. Similarly a subcortical area of white matter hypodensity seen in the right parietal region. There is no significant mass effect. No hydrocephalus. No extra-axial fluid collection seen. The calvarium, the paranasal sinuses and the orbits visualized portions appear grossly unremarkable. IMPRESSION: Nonspecific white matter hypodensities adjacent to the right caudate head and in the right parietal region could relate to early manifestation of chronic progressive ischemic changes. If symptoms persist, then MRI of the head could be helpful for further evaluation. Dictated by: Dictated on workstation # [id number]
[2016-07-17] MEDS ORDERED: NITR100C PO (14:12)
[2016-07-17 16:04] VITALS: BP 103/54
== END 2016-07-17 14:24 | disposition home or self-care (01) ==
LOC: EDUNIT# 09:54 → ER 09:55
DX: R11.2 Nausea with vomiting, unspecified (principal); R19.7 Diarrhea, unspecified; E86.0 Dehydration; R51 Headache; N39.0 Urinary tract infection, site not specified; I10 Essential (primary) hypertension; J44.9 Chronic obstructive pulmonary disease, unspecified; I25.10 Atherosclerotic heart disease of native coronary artery without angina pectoris; F17.210 Nicotine dependence, cigarettes, uncomplicated; Z95.5 Presence of coronary angioplasty implant and graft
CPT/HCPCS: 36415; 51701; 70450; 71010; 80053; 81000; 83605; 83735; 84484; 85025; 86141; 87040; 87088; 87186; 93005; 93041; 96361; 96374; 96375

== ENCOUNTER → 2016-12-25 | Outpatient (CLI) | payer MEDICARE, MEDICAID ==
[~2016-12-25] VITALS: Ht 157.5 cm; Wt 74.4 kg
[~2016-12-25] MED LIST changes: +ALBU18HF2 INH; +CATHETER FLUSH 10 ML SYR IV PRN; +CYCL1DRO OU; +D-ME118S7 PO; +HYDR-3812 PO; +LEVO500T2 PO; +METR500T PO; +NITR100C PO; +REGADENOSON 0.4 MG/5 ML SYR (LEXISCAN) IV ONE; +RIVA1TAB PO; +RT-ALBUINH IH
[2016-12-25 14:08] VITALS: BP 169/75
--- NOTE | 2016-12-26 14:17 | STRESS TEST ---
DATE OF SERVICE: 12/25/2016 PROCEDURE: Lexiscan Myoview Stress Test REFERRING PHYSICIAN: Leif Arora MD Baseline heart rate is 89, baseline blood pressure 136/79, baseline EKG is sinus rhythm with no ischemic changes. IN SUMMARY: The patient was injected with 9.8 mCi of technetium-99 Myoview and the resting images were obtained. Then, the patient received 0.4 mg of Lexiscan followed by 29.4 mCi of technetium-99 Myoview. Throughout the test, there were no EKG changes. The resting and stress images were reviewed and compared in the short axis, horizontal long axis, and vertical long axis views. Review of the images showed decreased uptake involving the whole inferior wall, inferoapical segment, inferior septum and inferolateral wall with mild jose-infarct ischemia. SSS is 29. SDS 1, TID value 1.22. On the gated images, the left ventricle is dilated with severe akinesia of the inferior wall inferoapical segment. Calculated ejection fraction 42%. CONCLUSION: 1. The patient tolerated Lexiscan well. 2. Total infarction of the inferior wall, inferoapical segment, inferior septum with mild periinfarct ischemia. 3. Transient ischemic dilatation with TID value 1.22. 4. Prominent left ventricle with akinesia of the inferior wall. Calculated ejection fraction 42%. Job ID: [id number] DocumentID: [id number] Dictated Date: 12/26/2016 07:55:21 Chief Accountant Date: 12/26/2016 10:46:42 Dictated By: AKBAR WILSON MD
== END ==
LOC: CARD 12:16
PROVIDERS: ATTEND Physician Assistant
DX: R07.89 Other chest pain (principal); R06.02 Shortness of breath; I25.10 Atherosclerotic heart disease of native coronary artery without angina pectoris; I10 Essential (primary) hypertension
CPT/HCPCS: 78452; 93017

== ENCOUNTER 2017-01-01 10:17 | Day surgery (SDC) | payer MEDICARE, MEDICAID ==
[~2017-01-01] VITALS: Ht 157.5 cm; Wt 74.4 kg
[2017-01-01] VITALS (8 sets, daily range): BP systolic 102–132; BP diastolic 58–77
[~2017-01-01 10:17] MED LIST changes: -ALBU18HF2 INH; -CATHETER FLUSH 10 ML SYR IV PRN; -CYCL1DRO OU; -D-ME118S7 PO; -HYDR-3812 PO; -LEVO500T2 PO; -METR500T PO; -REGADENOSON 0.4 MG/5 ML SYR (LEXISCAN) IV ONE; -RIVA1TAB PO; -RT-ALBUINH IH
[2017-01-01] MEDS ORDERED: NS IV 1000 ML 1,000 ML ONE (10:19)
[2017-01-01] MEDS ORDERED: HEParin (CATH LAB) 2,000 ML IV ONE (10:20)
[2017-01-01] MEDS ORDERED: NS IV 1000 ML 1,000 ML IV SCH ×2 (10:43→13:35)
[2017-01-01 10:54] LABS: MEAN PLATELET VOLUME 10.1 FL (7.4-10.4); RED BLOOD COUNT 4.8 10^6/uL (4.35-5.85); RED CELL DISTRIBUTION WIDTH 14.5 % (10.0-14.5); WHITE BLOOD COUNT 19.2 10^3/uL (4.3-11.0)
[2017-01-01] MEDS ORDERED: MIDAZOLAM 5 MG/5 ML (VERSED) VIAL ONE (11:00)
[2017-01-01] MEDS ORDERED: fentaNYL INJECTION 100 MCG/2 ML AMP ONE (11:01)
[2017-01-01 11:03] LABS: INR 0.9 (0.8-1.4); PROTHROMBIN TIME PATIENT 12.3 SEC (12.2-14.7)
[2017-01-01 11:12] LABS: ALBUMIN 3.9 GM/DL (3.2-4.5); BILIRUBIN,TOTAL 0.2 MG/DL (0.1-1.0); CALCIUM 9.3 MG/DL (8.5-10.1); CREATININE SERUM 1.03 MG/DL (0.60-1.30); POTASSIUM 3.8 MMOL/L (3.6-5.0); TOTAL PROTEIN 7.1 GM/DL (6.4-8.2)
[2017-01-01] MEDS ORDERED: INFLUENZA TRIvalent 2017-2018 0.5 ML/45 MCG SYR IM ONE (11:15)
--- NOTE | 2017-01-01 11:16 | Diagnostic Imaging Report ---
INDICATION: Coronary artery disease. Compared 07/17/2016. FINDINGS: Heart size and configuration unremarkable. Some chronic air trapping and mild biapical pleural parenchymal scarring stable. Hyperdense micronodular bilaterally unchanged, likely tiny chronic calcified nodules on an old inflammatory basis. No dominant lung mass and no evidence for hilar or mediastinal adenopathy. There is no failure pattern. IMPRESSION: Stable chronic findings. Dictated by: Dictated on workstation # [id number]
[2017-01-01] MEDS ORDERED: ALPR0.254 PO (11:28)
[2017-01-01] MEDS ORDERED: ONDA4TAB10 PO (11:28)
[2017-01-01] MEDS ORDERED: LATA2.5D5 OU (11:28)
[2017-01-01] MEDS ORDERED: RT-ALBUINH IH (11:28)
[2017-01-01] MEDS ORDERED: CYCL10TA9 PO (11:28)
[2017-01-01] MEDS ORDERED: PRD10T PO (11:28)
[2017-01-01] MEDS ORDERED: CYCL1DRO OU (11:28)
[2017-01-01] MEDS ORDERED: ASPI-983 PO (11:28)
[2017-01-01] MEDS ORDERED: IBUP-1780 PO (11:32)
--- NOTE | 2017-01-01 11:34 | Cardiac Procedure Note-CS/ASA ---
Pre-Procedure Note Pre-Op Procedure Note H&P Reviewed The H&P was reviewed, patient examined and no changes noted. Date H&P Reviewed: Jan 01, 2017 Time H&P Reviewed: 11:33 Conscious Sedation Pre-Proced Time Reviewed: 11:33 ASA Class: 3 Airway Mallampati Classification: (navajo appropriate class) I. II. III, IV Lungs Heart ASA score ASA 1: a normal healthy patient ASA 2: a patient with a mild systemic disease (mid diabetes, controlled hypertension, obesity x ASA 3: a patient with a severe systemic disease that limits activity (angina , COPD, prior Myocardial infarction) ASA 4: a patient with an incapacitating disease that is a constant threat to life (CHF, renal failure) ASA 5: a moribund patient not expected to survive 24 hrs. (ruptured aneurysm) ASA 6: a declared brain patient whose organs are being harvested. For emergent operations, add the letter E after the classification Grade 3 Sedation Plan: Analgesia, Amnesia, Plan communicated to team members, Discussed options with patient/fam, Discussed risks with patient/fam Note The patient is an appropriate candidate to undergo the planned procedure, sedation, and anesthesia. The patient immediately re-assessed prior to indication. AKBAR WILSON MD Jan 01, 2017 11:34
--- NOTE | 2017-01-01 11:53 | Cardiac Cath Report ---
Cardiac Cath Report Physician (s)/Braille Operator (s) Physician AKBAR WILSON MD Pre-Procedure Diagnosis Pre-Procedure Diagnosis: coronary artery disease Post-Procedure Note Procedure Start Date: Jan 01, 2017 Procedure Start Time: 11:30 Name of Procedure: left heart catheterization Findings/Procedure Note PROCEDURE NOTE: After explaining the procedure to the patient, all pros and cons were explained, all questions were answered. The patient signed the consent and then she was placed on the cardiac catheterization laboratory. The patient was placed on the cardiac catheterization laboratory. Groin was prepped SL fashion local anesthesia was used. Sheath placed in the artery. Kb right and left catheter were used to access the coronary system. Kb catheter was advanced left ventricular The left ventriculogram was done At the end of the procedure the sheath was removed. Closure device was used FINDINGS: Hemodynamics LV 119/24 end-diastolic pressure of 24 Aorta 127/77 mean of 80 ANATOMY: Left Main has a patent stent in extending to the circumflex artery Left Anterior Descending has ostial stenosis, small to moderate size artery, nonobstructive disease distally Left Circumflex is large dominant artery with patent stent extending from the left main into the proximal/mid circumflex system, mild disease distally Right Coronory Artery is small nondominant artery LV Gram is prominent with inferior wall akinesia, estimated ejection fraction 35 -40 percent CONCLUSION: 1. Patent stent in the circumflex artery extending into the left main with small vessel disease of the distal dominant circumflex system 2. 50 percent ostial LAD stenosis which has been present previously, no change from baseline mild disease distally 3. Small nondominant right coronary artery 4. Akinesia of the inferior wall with reduced systolic function, estimated ejection fraction 35-40 percent DISCUSSION AND RECOMMENDATION: Medical therapy is recommended no intervention is warranted Anesthesia Type: Conscious Sedation Estimated blood loss (mL): 5 ml Contrast Amount: 35 ml Total Radiation Dose: 455 mGy Post-Procedure Diagnosis Post-operative diagnosis: Coronary artery disease Congestive heart failure, chronic compensated left ventricle systolic dysfunction, ischemic cardiomyopathy Hypertension Hyperlipidemia AKBAR WILSON MD Jan 01, 2017 11:53
--- NOTE | 2017-01-01 11:55 | Discharge Inst-Post CATH ---
Discharge Inst-CATH Post Cardiac Cath D/C Inst Follow Up/Plan Appointment with Dr. Dobbins's office in 2-4 weeks CARDIAC CATH DISCHARGE INSTRUCTIONS *Hold Metformin for 48 hours post heart cath. ACTIVITY * Go Home directly and rest. * Limit activity of the leg (or wrist if it was used) for 7 days including aerobics, swimming, jogging, bicycling, etc. * Restrict stair-climbing for 7 days if possible, if not, climb up with your non -cath leg, then bring together on the same step. * Avoid lifting, pushing, pulling or excessive movement of the affected extremity for 7 days. * Customary sexual activity may be resumed after 2 days-use caution not to use a position that strains or causes pain to the affected extremity. * No driving for 24 hours. * NO SMOKING. * Avoid straining for bowel movements for 7 days. * Gentle walking on level ground is allowed. * Returning to work will depend on the type of procedure and the results. Your doctor will discuss this with you. CALL YOUR DOCTOR FOR ANY OF THE FOLLOWING: *If bleeding from the puncture site occurs- Apply gentle pressure to site with clean cloth and call your doctor or EMS. * If a knot or lump forms under the skin, increases in size, or causes pain. * If bruising appears to be worsening or moving further down your leg instead of disappearing. * Temperature above 101 F. CARE OF YOUR GROIN INCISION; * Bruising or purple discoloration of the skin near the puncture site is common. * You may shower only, no bathtub bathing for 5 days. Be careful to avoid slipping as your leg may feel stiff. * If a closure device was used on your femoral artery, please see the attached guide regarding care of the device and your leg. * REMOVE the dressing from your groin the next day after your procedure in the shower. CARE OF YOUR WRIST INCISION; * Bruising or purple discoloration of the skin near the puncture site is common. * You may shower. * DO NOT submerge wrist. * Remove dressing in 24 hours. AKBAR DOBBINS MD Jan 01, 2017 11:55
[2017-01-01] MEDS ORDERED: ONDANSETRON 4 MG/2 ML (SDV) Z0FRAN ONE (12:05)
[2017-01-01] MEDS ORDERED: PATIENT MAY USE OWN MEDS, ALL PO SCH (13:45)
== END 2017-01-01 17:05 | disposition home or self-care (01) ==
LOC: CATH 10:17 → ICU 12:17 → CATH 17:05
PROVIDERS: ATTEND Internal Medicine Cardiovascular Disease
DX: I25.10 Atherosclerotic heart disease of native coronary artery without angina pectoris (principal); I25.5 Ischemic cardiomyopathy; I50.22 Chronic systolic (congestive) heart failure; I10 Essential (primary) hypertension; E78.5 Hyperlipidemia, unspecified; R07.89 Other chest pain; I25.2 Old myocardial infarction; F41.8 Other specified anxiety disorders; F31.9 Bipolar disorder, unspecified; M06.9 Rheumatoid arthritis, unspecified; Z95.5 Presence of coronary angioplasty implant and graft; Z79.899 Other long term (current) drug therapy; Z72.0 Tobacco use
CPT/HCPCS: 36415; 71010; 80053; 80061; 85027; 85610; 85730; 87081; 93458

== ENCOUNTER 2017-01-23 18:20 | Inpatient (IN) | payer MEDICARE, MEDICAID ==
[~2017-01-23] VITALS: Ht 160 cm; Wt 80.3 kg
[~2017-01-23 18:20] MED LIST changes: +CYCL1DRO OU; +RT-ALBUINH IH
[2017-01-23 18:45] LABS: BASOPHILS # (AUTO) 0.1 10^3/uL (0.0-0.1); BASOPHILS % (AUTO) 0 % (0-10); EOSINOPHILS # (AUTO) 0.1 10^3/uL (0.0-0.3); EOSINOPHILS % (AUTO) 1 % (0-10); LYMPHOCYTES # (AUTO) 4.6 X 10^3 (1.0-4.0); LYMPHOCYTES % (AUTO) 24 % (12-44); MEAN CORPUSCULAR HEMOGLOBIN 29 PG (25-34); MEAN CORPUSCULAR HGB CONC 33 G/DL (32-36); MEAN CORPUSCULAR VOLUME 88 FL (80-99); MEAN PLATELET VOLUME 10.3 FL (7.4-10.4); MONOCYTES # (AUTO) 1.6 X 10^3 (0.0-1.0); MONOCYTES % (AUTO) 8 % (0-12); NEUTROPHILS # (AUTO) 13.1 X 10^3 (1.8-7.8); NEUTROPHILS % (AUTO) 67 % (42-75); PLATELET COUNT 535 10^3/uL (130-400); RED BLOOD COUNT 4.98 10^6/uL (4.35-5.85); RED CELL DISTRIBUTION WIDTH 14.8 % (10.0-14.5); WHITE BLOOD COUNT 19.5 10^3/uL (4.3-11.0)
[2017-01-23] MEDS ORDERED: ASPIRIN 81 MG CHEW (CHILDREN'S ASA) PO ONE (18:45)
[2017-01-23 18:50] LABS: PROTHROMBIN TIME PATIENT 12.8 SEC (12.2-14.7)
[2017-01-23 18:51] LABS: BILIRUBIN,URINE NEGATIVE (NEGATIVE); KETONES,URINE NEGATIVE (NEGATIVE); LEUKOCYTE ESTERASE ,URINE 1+ (NEGATIVE); NITRITE,URINE NEGATIVE (NEGATIVE); PH,URINE 6 (5-9); PROTEIN,URINE 1+ (NEGATIVE); UROBILINOGEN,URINE NORMAL (NORMAL)
[2017-01-23 19:02] LABS: ALANINE AMINOTRANSFERASE 20 U/L (0-55); ALBUMIN 4.2 GM/DL (3.2-4.5); AMYLASE 106 U/L (25-125); ANION GAP 11 MMOL/L (5-14); ASPARTATE AMINO TRANSFERASE 19 U/L (5-34); BILIRUBIN,TOTAL 0.4 MG/DL (0.1-1.0); BLOOD UREA NITROGEN 20 MG/DL (7-18); BUN/CREATININE RATIO 15; CALCIUM 9.7 MG/DL (8.5-10.1); CARBON DIOXIDE 23 MMOL/L (21-32); CHLORIDE 105 MMOL/L (98-107); CREATINE KINASE 186 U/L (29-168); CREATININE SERUM 1.32 MG/DL (0.60-1.30); GFR ESTIMATED 42; GLUCOSE 146 MG/DL (70-105); LIPASE 65 U/L (8-78); POTASSIUM 3.1 MMOL/L (3.6-5.0); SODIUM 139 MMOL/L (135-145)
[2017-01-23 19:08] LABS: TROPONIN I < 0.30 NG/ML (<0.30)
[2017-01-23 19:10] LABS: WBC,URINE 0-2 /HPF
[2017-01-23 19:19] LABS: BAND NEUTROPHILS 1 %; BASOPHILS % (MANUAL) 1 %; EOSINOPHILS % (MANUAL) 0 %; LYMPHOCYTES % (MANUAL) 31 %; NEUTROPHILS % (MANUAL) 65 %
--- NOTE | 2017-01-23 19:19 | Diagnostic Imaging Report ---
EXAMINATION: Portable erect AP chest at 7:11 p.m. INDICATION: Chest pain. FINDINGS: The heart size is within normal limits and stable when compared to 01/01/2017. The chronic pulmonary changes evident on the prior study are again visualized and no different. There is no sign of failure, pneumonia, or pleural effusion to suggest an acute abnormality. The mediastinum is not widened. The osseous structures are intact. IMPRESSION: There is no evidence for an acute cardiopulmonary abnormality. Dictated by: Dictated on workstation # [id number]
[2017-01-23] MEDS ORDERED: IOHEXOL 350 MG/ML 150 ML (OMNIPAQUE 350) VIAL IV ONE (19:45)
[2017-01-23] MEDS ORDERED: NS 100 ML (IVPB) BAG IV ONE (19:45)
--- NOTE | 2017-01-23 20:38 | Diagnostic Imaging Report ---
PROCEDURE: CT angiography of the chest with contrast. TECHNIQUE: Multiple contiguous axial images were obtained through the chest after uneventful bolus administration of intravenous contrast. Reconstructed CTA MIP acquisitions were also performed. INDICATION: Chest pain and headache for 1 to 2 hours. Recent left lumpectomy. EXAMINATION: CT angiogram of the chest dated 01/23/2017 FINDINGS: There is embolus within the distal right main pulmonary artery which extends into the posterior branches of the right lower lobe with minimal extension into the lateral branch as well. No central pulmonary emboli are appreciated. The thoracic aorta is intact and unremarkable. No mediastinal adenopathy is appreciated. There is no pericardial effusion. There are no pleural effusions. The lungs demonstrate multiple bilateral calcified granulomata consistent with old granulomatous disease. Scar and/or atelectasis scattered throughout the lungs, left greater than right. Osseous structures are intact. Visualized upper abdominal structures grossly unremarkable. Some motion artifact within the abdomen does limit evaluation. IMPRESSION: 1. Pulmonary emboli extending into the right lower lobe as described with no central embolus present. 2. Remaining changes chronic in appearance as described above. Pertinent findings called to Dr. Bruce by Dr. Vera at the time of dictation on 01/23/2017 at 8:30 PM. Dictated by: Dictated on workstation # [id number]
[2017-01-23] MEDS ORDERED: morphine INJ 10 MG/ML 1ML (SYR OR VIAL) IVP STA (20:59)
[2017-01-23] MEDS ORDERED: ENOXAPARIN 60 MG/0.6 ML (LOVENOX) SYR SC ONE (21:00)
--- NOTE | 2017-01-23 21:17 | ED Chest Pain ---
General Chief Complaint: Chest Pain Stated Complaint: CHEST PAIN Nursing Triage Note: ARRIVED VIA AMB TO ROOM 09. 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 STATES SHE HAD A STENT PLACED 4 WEEKS AGO BY STEVE Nursing Sepsis Screen: No Definite Risk Source: patient History of Present Illness Time seen by provider: 18:25 Initial Comments PT ARRIVES VIA POV FROM HOME C/O SUDDEN ONSET OF CHEST PAIN THAT BEGAN 20 MINUTES PRIOR TO ARRIVAL WHILE SITTING IN CHAIR PT STATES IT STARTED IN HER LEFT CHEST, THEN SHOT ACROSS TO HER RIGHT CHEST, THEN SHOT UP HER RIGHT NECK AND JAW--WAS SEVERE AND RATES IT A "10 PLUS". STATES NOW SHE HAS DIFFUSE TIGHTNESS ALL ACROSS HER CHEST AND RATES IT 5/10 PAIN IS WORSE WITH EXERTION PT HAS HISTORY OF CAD AND GA AND STATES SHE HAS HAD 2 STENTS ( POSSIBLY ONLY 1 STENT ACCORDING TO OLD RECORDS ). HAD CARDIAC CATH BY DR. WILSON 01/01/17 AND SHOWED PATENT STENT, WITH MODERATE NON-OCCLUSIVE DISEASE WITH EF OF 35-40%. NO INTERVENTION DONE AT THAT TIME PT HAS COPD AND CHRONIC DYSPNEA ON EXERTION, BUT IS WORSE TONIGHT--NO IMPROVEMENT WITH INHALER --USED 15 MINUTES PRIOR TO ONSET OF CHEST PAIN HAS CHRONIC COUGH, BUT HAS BEEN WORSE THE LAST COUPLE OF WEEKS, HAS CLEAR SPUTUM NO SWEATS NO KNOWN FEVER NO SWELLING IN LEGS/ FEET OR PAIN IN CALVES NO NAUSEA/VOMITING NO PALPITATIONS NO DIZZINESS PCP: [facility]. [facility] N[facility] ARCHITECT: DR. WILSON Allergies and Home Medications Allergies Coded Allergies: sulfamethoxazole (Verified Allergy, Intermediate, VOMITTING/MIGRAINE, ) trimethoprim (Verified Allergy, Intermediate, VOMITTING/MIGRAINE, 03/14/16 ) codeine (Unverified Allergy, Mild, TAKES HYDROCODONE AT HOME, 07/04/14) pentazocine (Unverified Adverse Reaction, Mild, N/V, HEAD ACHE, 07/04/14) Home Medications Acetaminophen 500 Mg Tablet, 1,000 MG PO Q6H PRN for PAIN-MILD, (Reported) Albuterol Sulfate 1 Puff Puff, 2 PUFF IH QID PRN for SHORTNESS OF BREATH, ( Reported) 1 PUFF = 90 MCG Alprazolam 0.25 Mg Tablet, 0.25 MG PO BID PRN for ANXIETY, (Reported) Aspirin 81 Mg Tablet.dr, 81 MG PO HS, (Reported) Atorvastatin Calcium 20 Mg Tablet, 20 MG PO HS, (Reported) Cyclobenzaprine HCl 10 Mg Tablet, 10 MG PO TID PRN for MUSCLE SPASMS, (Reported) Cyclosporine 1 Each Droperette, 1 DROP OU BID, (Reported) Estradiol 1 Mg Tablet, 1 MG PO HS, (Reported) Fenofibrate,Micronized 134 Mg Capsule, 134 MG PO HS, (Reported) Ibuprofen 800 Mg Tablet, 800 MG PO Q8H PRN for PAIN-MILD, (Reported) Lansoprazole 30 Mg Capsule.dr, 30 MG PO HS, (Reported) Latanoprost 2.5 Ml Drops, 1 DROP OU HS, (Reported) Metoprolol Tartrate 25 Mg Tablet, 12.5 MG PO HS, (Reported) TAKES 1/2 OF A (25 MG) TABLET Nitroglycerin 0.4 Mg Tab.subl, 0.4 MG SL UD PRN for CHEST PAIN, (Reported) Ondansetron HCl 4 Mg Tablet, 4 MG PO Q6H PRN for NAUSEA/VOMITING-1ST LINE, ( Reported) Prednisone 10 Mg Tab, 10 MG PO HS, (Reported) Promethazine HCl 25 Mg Tablet, 25 MG PO Q6H PRN for NAUSEA/VOMITING-2ND LINE, ( Reported) Topiramate 50 Mg Tablet, 50 MG PO HS, (Reported) Venlafaxine HCl 75 Mg Cap.er.24h, 75 MG PO HS, (Reported) Review of Systems Constitutional: no symptoms reported, No chills, No diaphoresis, No dizziness, No fever EENTM: No Symptoms Reported Respiratory: See HPI, Cough, Orthopnea, Shortness of Air, SOA With Exertion, SOA at Rest, Wheezing Cardiovascular: See HPI, Chest Pain, Denies Edema, Denies Lightheadedness, Denies Palpitations, Denies Syncope Gastrointestinal: No Symptoms Reported, Denies Abdominal Pain, Denies Nausea, Denies Vomiting Genitourinary: No Symptoms Reported Musculoskeletal: no symptoms reported, No back pain Skin: no symptoms reported Psychiatric/Neurological: No Symptoms Reported, Denies Paresthesia, Denies Weakness Endocrine: No Symptoms Reported Hematologic/Lymphatic: No Symptoms Reported Past Qwgpjma-Ufvbdc-Mrvjme Hx Patient Social History Alcohol Use: Past History (HISTORY OF MODERATE USE IN THE PAST) Recreational Drug Use: Yes (HX OF THC, SPEED, COCAINE IN THE PAST. DENIES IV DRUG USE) Smoking Status: Current Everyday Smoker (UP TO 3 PPD, RECENTLY DOWN TO 1 PPD) Type Used: Cigarettes 2nd Hand Smoke Exposure: No Recent Foreign Travel: No Contact w/Someone Who Travel: No Recent Infectious Disease Expo: No Recent Hopitalizations: Yes (03/19/16 LITHOTRIPSY) Immunizations Up To Date Tetanus Booster (TDap): More than 5yrs PED Vaccines UTD: No Date of Pneumonia Vaccine: May 01, 2015 Date of Influenza Vaccine: Feb 21, 2016 Seasonal Allergies Seasonal Allergies: Yes Surgeries History of Surgeries: Yes (COLON RESECTION WITH COLOSTOMY AND LATER REVERSAL FOR DIVERTICULITIS WITH PERFORATION; EGD'S /COLONOSCOPIES: KIDNEY STONE REMOVAL ; LITHOTRIPSY;; HYST/BSO; CARDIAC CATHS--STENTS X 1 OR 2 ; "EXPLORATORY" ABDOMINAL SURGERY X 2; LEFT BREAST BIOPSY) Surgeries: Abdominal, Appendectomy, Bowel Surgery, Breast, Cardiac, Coronary Stent, Gallbladder, Hysterectomy, Oophorectomy, Renal Respiratory History of Respiratory Disorde: Yes (RESPIRATORY FAILURE ON VENT X 1 ) Respiratory Disorders: Asthma, Pneumonia, Chronic Bronchitis, COPD Currently Using CPAP: No Currently Using BIPAP: No Cardiovascular History of Cardiac Disorders: Yes (STENT PLACED OCTOBER 2014 AFTER [place]) Cardiac Disorders: Coronary Artery Disease, Heart Attack, High Cholesterol, Hypertension Neurological History of Neurological Disord: Yes (PT STATES SHE HAS HAD A COUPLE OF SEIZURES , BUT NONE FOR > 10 YEARS--NO SEIZURE MEDICATIONS, AND PT STATES EEG WAS INCONCLUSIVE) Neurological Disorders: Seizure Disorder 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 System Hx 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 Disorders: Yes (CERVICAL DYSPLASIA--S/P HYST/BSO) Sexually Transmitted Disease: No HIV/AIDS: No 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 ) Gastrointestinal Disorders: Gastroesophageal Reflux, Diverticulosis, Irritable Bowel Musculoskeletal History of Musculoskeletal Dis: Yes (USED TO BE ON METHOTREXATE FOR R.A. BUT NOW ONLY TAKES MOBIC--STATES MTX CAUSED RENAL FAILURE) Musculoskeletal Disorders: Arthritis, Fibromyalgia, Rheumatoid Arthritis Endocrine History of Endocrine Disorders: No HEENT History of HEENT Disorders: Yes HEENT Disorders: Glaucoma Loss of Vision: Denies Hearing Impairment: Denies Cancer History of Cancer: No Psychosocial History of Psychiatric Problem: Yes Behavioral Health Disorders: Anxiety, Bipolar, Depression Integumentary History of Skin or Integumenta: Yes (SHINGLES) Blood Transfusions History of Blood Disorders: No Adverse Reaction to a Blood Tr: No Family Medical History Significant Family History: No Pertinent Family Hx, Cancer Family Medial History: CANCER 19 MOTHER (PATIENT DOES NOT KNOW LOCATION) Physical Exam Vital Signs Vital Sign - Last 12Hours 01/23/17 18:20 Temp 98.0 Pulse 104 Resp 18 B/P (MAP) 136/64 Pulse Ox 98 Capillary Refill : Less Than 3 Seconds General Appearance: No Apparent Distress, WD/WN HEENT: PERRL/EOMI, Other (POOR DENTITION) Neck: Full Range of Motion, Normal Inspection, Non Tender, Supple, No Carotid Bruit, No JVD Respiratory: Chest Non Tender, No Accessory Muscle Use, No Respiratory Distress , Wheezing (FAINT EXPIRATORY WHEEZING BILATERALLY), Other (FREQUENT DRY COUGH ON EXAM, WHICH RESOLVES SHORTLY AFTER ARRIVAL) Cardiovascular: No Edema, No Gallop, No JVD, No Murmur, Normal Peripheral Pulses, Tachycardia (MILD TACHYCARDIA 100-110'S) Gastrointestinal: Normal Bowel Sounds, No Organomegaly, No Pulsatile Mass, Non Tender, Soft Extremity: Normal Capillary Refill, Normal Inspection, Normal Range of Motion, Non Tender, No Calf Tenderness, No Pedal Edema Neurologic/Psychiatric: Alert, Oriented x3, No Motor/Sensory Deficits, Normal Mood/Affect, money manager II-XII Norm as Tested Skin: Normal Color, Warm/Dry Date of ETT Placement: Feb 11, 2016 Time of ETT Placement: 1341 Progress/Results/Core Measures Results/Orders Lab Results Laboratory Tests Test 01/23/17 18:25 01/23/17 18:39 Range/Units White Blood Count 19.5 H 4.3-11.0 10^3/uL Red Blood Count 4.98 4.35-5.85 10^6/uL Hemoglobin 14.6 11.5-16.0 G/DL Hematocrit 44 35-52 % Mean Corpuscular Volume 88 80-99 FL Mean Corpuscular Hemoglobin 29 25-34 PG Mean Corpuscular Hemoglobin Concent 33 32-36 G/DL Red Cell Distribution Width 14.8 H 10.0-14.5 % Platelet Count 535 H 130-400 10^3/uL Mean Platelet Volume 10.3 7.4-10.4 FL Neutrophils (%) (Auto) 67 42-75 % Lymphocytes (%) (Auto) 24 12-44 % Monocytes (%) (Auto) 8 0-12 % Eosinophils (%) (Auto) 1 0-10 % Basophils (%) (Auto) 0 0-10 % Neutrophils # (Auto) 13.1 H 1.8-7.8 X 10^3 Lymphocytes # (Auto) 4.6 H 1.0-4.0 X 10^3 Monocytes # (Auto) 1.6 H 0.0-1.0 X 10^3 Eosinophils # (Auto) 0.1 0.0-0.3 10^3/uL Basophils # (Auto) 0.1 0.0-0.1 10^3/uL Neutrophils % (Manual) 65 % Lymphocytes % (Manual) 31 % Monocytes % (Manual) 2 % Eosinophils % (Manual) 0 % Basophils % (Manual) 1 % Band Neutrophils 1 % Blood Morphology Comment NORMAL Prothrombin Time 12.8 12.2-14.7 SEC INR Comment 1.0 0.8-1.4 Activated Partial Thromboplast Time 26 24-35 SEC Sodium Level 139 135-145 MMOL/L Potassium Level 3.1 L 3.6-5.0 MMOL/L Chloride Level 105 98-107 MMOL/L Carbon Dioxide Level 23 21-32 MMOL/L Anion Gap 11 5-14 MMOL/L Blood Urea Nitrogen 20 H 7-18 MG/DL Creatinine 1.32 H 0.60-1.30 MG/DL Estimat Glomerular Filtration Rate 42 BUN/Creatinine Ratio 15 Glucose Level 146 H 70-105 MG/DL Calcium Level 9.7 8.5-10.1 MG/DL Magnesium Level 2.0 1.8-2.4 MG/DL Total Bilirubin 0.4 0.1-1.0 MG/DL Aspartate Amino Transf (AST/SGOT) 19 5-34 U/L Alanine Aminotransferase (ALT/SGPT) 20 0-55 U/L Alkaline Phosphatase 112 40-136 U/L Total Creatine Kinase 186 H 29-168 U/L Creatine Kinase MB 2.3 <6.6 NG/ML Troponin I < 0.30 <0.30 NG/ML B-Type Natriuretic Peptide 35.5 <100.0 PG/ML Total Protein 8.0 6.4-8.2 GM/DL Albumin 4.2 3.2-4.5 GM/DL Amylase Level 106 25-125 U/L Lipase 65 8-78 U/L Urine Color YELLOW Urine Clarity CLEAR Urine pH 6 5-9 Urine Specific [place] 1.020 1.016-1.022 Urine Protein 1+ H NEGATIVE Urine Glucose (UA) NEGATIVE NEGATIVE Urine Ketones NEGATIVE NEGATIVE Urine Nitrite NEGATIVE NEGATIVE Urine Bilirubin NEGATIVE NEGATIVE Urine Urobilinogen NORMAL NORMAL MG/DL Urine Leukocyte Esterase 1+ H NEGATIVE Urine RBC (Auto) 3+ H NEGATIVE Urine RBC 10-25 H /HPF Urine WBC 0-2 /HPF Urine Squamous Epithelial Cells 10-25 H /HPF Urine Crystals NONE /LPF Urine Bacteria TRACE /HPF Urine Casts NONE /LPF Urine Mucus NEGATIVE /LPF Urine Culture Indicated NO Micro Results Microbiology 01/23/17 Influenza Types A,B Antigen (DESI) - Final, Complete My Orders Orders - CAMILLE GARDUNO DO Amylase (01/23/17 18:39) Cbc With Automated Diff (01/23/17 18:39) Comprehensive Metabolic Panel (01/23/17 18:39) Creatine Kinase (01/23/17 18:39) Creatine Kinase Mb (01/23/17 18:39) Lipase (01/23/17 18:39) Partial Thromboplastin Time (01/23/17 18:39) Protime With Inr (01/23/17 18:39) Troponin I (01/23/17 18:39) Chest 1 View, Ap/Pa Only (01/23/17 18:39) O2 (01/23/17 18:39) Ekg Tracing (01/23/17 18:39) Aspirin Chewable Tablet (Baby Aspirin Ch (01/23/17 18:45) BNP (01/23/17 18:39) Monitor-Rhythm Ecg Trace Only (01/23/17 18:39) Magnesium (01/23/17 18:39) Ua Culture If Indicated (01/23/17 18:39) Influenza A And B Antigens (01/23/17 18:39) Manual Differential (01/23/17 18:25) Ct Angio Chest W (01/23/17 19:33) Iohexol Injection (Omnipaque 350 Mg/Ml 1 (01/23/17 19:45) Ns (Ivpb) (Sodium Chloride 0.9% Ivpb Bag (01/23/17 19:45) Pharmacy Communication (Pharmacy Communi (01/23/17 19:42) Enoxaparin Injection (Lovenox Injection) (01/23/17 21:00) Morphine Injection (Morphine Injection (01/23/17 20:59) Medications Given in ED Current Medications Medications Dose Ordered Sig/Jamie Route Start Time Stop Time Status Last Admin Dose Admin Enoxaparin Sodium 120 mg ONCE ONCE SC 01/23/17 21:00 01/23/17 21:01 DC 01/23/17 21:22 120 MG Iohexol 150 ml ONCE ONCE IV 01/23/17 19:45 01/23/17 19:46 DC 01/23/17 19:59 125 ML Sodium Chloride 100 ml ONCE ONCE IV 01/23/17 19:45 01/23/17 19:46 DC 01/23/17 20:00 80 ML Vital Signs/I&O Vital Sign - Last 12Hours 01/23/17 18:20 Temp 98.0 Pulse 104 Resp 18 B/P (MAP) 136/64 Pulse Ox 98 Blood Pressure Mean: 88 Progress Note : Progress Note NO DETERIORATION IN PT'S CONDITION DURING ER STAY VITALS REMAINED STABLE, AND O2 SATS REMAINED IN MID 90'S PAIN EASED WITH MEDICATIONS ECG Initial ECG Impression Time: 18:24 Initial ECG Rate: 112 Initial ECG Rhythm: S.Tach Initial ECG Impression: Nonspecific Changes (INFERIOR Q WAVES) Initial ECG Comparisson: No Previous ECG Available Diagnostic Imaging Comments CXR--NO ACUTE PROCESS CT CHEST ANGIOGRAM--+ P.E. RIGHT MAIN PULMONARY ARTERY, EXTENDING INTO RLL. NO CENTRAL PULMONARY EMBOLI PER RADIOLOGIST REPORTS @ 2031 Reviewed: Reviewed by Me Departure Communication (Admissions) Progress Notes 2049--SPOKE WITH DR. WILSON, HE ADVISES ADMIT AND HIGH DOSE LOVENOX OR HEPARIN SO WILL DOSE AT 1.5 MG/KG BID, AND HE WILL SEE PT IN CONSULT AND ADVISES TO ADMIT TO HOSPITALIST 2054--SPOKE WITH DR. VOSS, ACCEPTS PT FOR ADMIT. Impression Impression: Primary Impression: Pulmonary embolism on right Additional Impressions: COPD (chronic obstructive pulmonary disease) CAD (coronary artery disease) Disposition: ADMITTED INPATIENT Condition: Improved Admissions Decision to Admit Reason: Admit from ER (General) Decision to Admit/Date: Jan 23, 2017 Time/Decision to Admit Time: 20:50 Departure-Patient Inst. Referrals: NO,LOCAL PHYSICIAN (PCP/Family) Primary Care Physician CAMILLE GARDUNO DO Jan 23, 2017 21:17
[2017-01-23 22:30] VITALS: BP 131/76
[2017-01-23 22:31] VITALS: BP 131/76
[2017-01-23 23:00] VITALS: BP 144/84
[2017-01-23] MEDS ORDERED: morphine INJ 10 MG/ML 1ML (SYR OR VIAL) ONE (23:03)
[2017-01-23] MEDS ORDERED: KETOROLAC 30 MG/ML VIAL IVP PRN (23:30)
[2017-01-24] VITALS (20 sets, daily range): BP systolic 96–157; BP diastolic 56–112
[2017-01-24 05:36] LABS: BASOPHILS # (AUTO) 0.1 10^3/uL (0.0-0.1); BASOPHILS % (AUTO) 1 % (0-10); EOSINOPHILS # (AUTO) 0.2 10^3/uL (0.0-0.3); EOSINOPHILS % (AUTO) 1 % (0-10); LYMPHOCYTES % (AUTO) 27 % (12-44); MEAN CORPUSCULAR HEMOGLOBIN 29 PG (25-34); MEAN CORPUSCULAR HGB CONC 33 G/DL (32-36); MEAN CORPUSCULAR VOLUME 89 FL (80-99); MEAN PLATELET VOLUME 10.5 FL (7.4-10.4); MONOCYTES # (AUTO) 1.5 X 10^3 (0.0-1.0); MONOCYTES % (AUTO) 10 % (0-12); NEUTROPHILS # (AUTO) 9.3 X 10^3 (1.8-7.8); NEUTROPHILS % (AUTO) 62 % (42-75); PLATELET COUNT 459 10^3/uL (130-400); RED BLOOD COUNT 4.55 10^6/uL (4.35-5.85); WHITE BLOOD COUNT 15.1 10^3/uL (4.3-11.0)
[2017-01-24] MEDS: morphine INJ 10 MG/ML 1ML (SYR OR VIAL) IVP PRN ×3 (05:46→15:29)
[2017-01-24 06:13] LABS: ALBUMIN 3.5 GM/DL (3.2-4.5); BILIRUBIN,TOTAL 0.2 MG/DL (0.1-1.0); CALCIUM 9.3 MG/DL (8.5-10.1); CREATININE SERUM 1.14 MG/DL (0.60-1.30); MAGNESIUM 2.1 MG/DL (1.8-2.4); PHOSPHORUS 4.5 MG/DL (2.3-4.7); POTASSIUM 3.7 MMOL/L (3.6-5.0); TOTAL PROTEIN 6.7 GM/DL (6.4-8.2)
[2017-01-24] MEDS: POTASSIUM CL 10MEQ/50ML IVPB 50 ML IV SCH (06:18)
[2017-01-24] MEDS: KCL 20 MEQ TAB (K-DUR) PO SCH (06:19)
[2017-01-24] MEDS: MAGNESIUM 1 GM/100 ML IVPB 100 ML IV SCH (06:19)
[2017-01-24] MEDS ORDERED: HEParin 1000 UNIT/ML (10ML VIAL) FOR BOLUS ONE (06:33)
[2017-01-24] MEDS ORDERED: NS IV 1000 ML 0 ML ONE ×2 (06:33→06:53)
[2017-01-24] MEDS: RT-ALBUTEROL SULF 2.5 MG/3 ML PRE-MIX VIAL IH SCH ×4 (07:16→18:57)
--- NOTE | 2017-01-24 07:29 | Pulmonary Consultation ---
History of Present Illness History of Present Illness Date of Consultation 01/24/17 07:23 Time Seen by Provider: 07:23 Date of Admission History of Present Illness 56yo with hx of CAD and recent stent placement 4 wks ago pt presented to ED secondary to left sided severe chest pain and radiation to her right neck. CP started 20 min prior to arrival. Pt has CHF with an EF of 35-40%. CT was done in ED and shows acute PE. I am consulted for pulmonary management Allergies and Home Medications Allergies Coded Allergies: sulfamethoxazole (Verified Allergy, Intermediate, VOMITTING/MIGRAINE, ) trimethoprim (Verified Allergy, Intermediate, VOMITTING/MIGRAINE, 03/14/16 ) codeine (Unverified Allergy, Mild, TAKES HYDROCODONE AT HOME, 07/04/14) pentazocine (Unverified Adverse Reaction, Mild, N/V, HEAD ACHE, 07/04/14) Home Medications Acetaminophen 500 Mg Tablet, 1,000 MG PO Q6H PRN for PAIN-MILD, (Reported) Albuterol Sulfate 1 Puff Puff, 2 PUFF IH QID PRN for SHORTNESS OF BREATH, ( Reported) 1 PUFF = 90 MCG Alprazolam 0.25 Mg Tablet, 0.25 MG PO BID PRN for ANXIETY, (Reported) Aspirin 81 Mg Tablet.dr, 81 MG PO HS, (Reported) Atorvastatin Calcium 20 Mg Tablet, 20 MG PO HS, (Reported) Cyclobenzaprine HCl 10 Mg Tablet, 10 MG PO TID PRN for MUSCLE SPASMS, (Reported) Cyclosporine 1 Each Droperette, 1 DROP OU BID, (Reported) Estradiol 1 Mg Tablet, 1 MG PO HS, (Reported) Fenofibrate,Micronized 134 Mg Capsule, 134 MG PO HS, (Reported) Ibuprofen 800 Mg Tablet, 800 MG PO Q8H PRN for PAIN-MILD, (Reported) Lansoprazole 30 Mg Capsule.dr, 30 MG PO HS, (Reported) Latanoprost 2.5 Ml Drops, 1 DROP OU HS, (Reported) Metoprolol Tartrate 25 Mg Tablet, 12.5 MG PO HS, (Reported) TAKES 1/2 OF A (25 MG) TABLET Nitroglycerin 0.4 Mg Tab.subl, 0.4 MG SL UD PRN for CHEST PAIN, (Reported) Ondansetron HCl 4 Mg Tablet, 4 MG PO Q6H PRN for NAUSEA/VOMITING-1ST LINE, ( Reported) Prednisone 10 Mg Tab, 10 MG PO HS, (Reported) Promethazine HCl 25 Mg Tablet, 25 MG PO Q6H PRN for NAUSEA/VOMITING-2ND LINE, ( Reported) Topiramate 50 Mg Tablet, 50 MG PO HS, (Reported) Venlafaxine HCl 75 Mg Cap.er.24h, 75 MG PO HS, (Reported) Past Zbvpjcj-Sihapn-Awmtbr Hx Patient Social History Alcohol Use: Past History Recreational Drug Use: Yes (HX OF THC, SPEED, COCAINE IN THE PAST. DENIES IV DRUG USE) Smoking Status: Current Everyday Smoker Type Used: Cigarettes 2nd Hand Smoke Exposure: No Recent Foreign Travel: No Contact w/Someone Who Travel: No Recent Infectious Disease Expo: No Recent Hopitalizations: Yes (03/19/16 LITHOTRIPSY) Physical Abuse: No Sexual Abuse: No Mistreated: No Fear: No Immunizations Up To Date Tetanus Booster (TDap): More than 5yrs PED Vaccines UTD: No Date of Pneumonia Vaccine: May 01, 2015 Date of Influenza Vaccine: Feb 21, 2016 Seasonal Allergies Seasonal Allergies: Yes Surgeries History of Surgeries: Yes (COLON RESECTION WITH COLOSTOMY AND LATER REVERSAL FOR DIVERTICULITIS WITH PERFORATION; EGD'S /COLONOSCOPIES: KIDNEY STONE REMOVAL ; LITHOTRIPSY;; HYST/BSO; CARDIAC CATHS--STENTS X 1 OR 2 ; "EXPLORATORY" ABDOMINAL SURGERY X 2; LEFT BREAST BIOPSY) Surgeries: Abdominal, Appendectomy, Bowel Surgery, Breast, Cardiac, Coronary Stent, Gallbladder, Hysterectomy, Oophorectomy, Renal Respiratory History of Respiratory Disorde: Yes (RESPIRATORY FAILURE ON VENT X 1 ) Respiratory Disorders: Asthma, Pneumonia, Chronic Bronchitis, COPD Currently Using CPAP: No Currently Using BIPAP: No Cardiovascular History of Cardiac Disorders: Yes (STENT PLACED OCTOBER 2014 AFTER [place]) Cardiac Disorders: Coronary Artery Disease, Heart Attack, High Cholesterol, Hypertension Neurological History of Neurological Disord: Yes Neurological Disorders: Seizure Disorder 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 System Hx 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 Disorders: Yes (CERVICAL DYSPLASIA--S/P HYST/BSO) Sexually Transmitted Disease: No HIV/AIDS: No 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 Genitourinary History of Genitourinary Disor: Yes Genitourinary Disorders: Bladder Infection, Kidney Stones, Renal Failure Gastrointestinal History of Gastrointestinal Di: Yes Gastrointestinal Disorders: Gastroesophageal Reflux, Diverticulosis, Irritable Bowel Musculoskeletal History of Musculoskeletal Dis: Yes Musculoskeletal Disorders: Arthritis, Fibromyalgia, Rheumatoid Arthritis Endocrine History of Endocrine Disorders: No HEENT History of HEENT Disorders: Yes HEENT Disorders: Glaucoma Loss of Vision: Denies Hearing Impairment: Denies Cancer History of Cancer: No Psychosocial History of Psychiatric Problem: Yes Behavioral Health Disorders: Anxiety, Bipolar, Depression Suicide Risk Score: 0 Integumentary History of Skin or Integumenta: Yes (SHINGLES) Blood Transfusions History of Blood Disorders: No Adverse Reaction to a Blood Tr: No Family Medical History Significant Family History: No Pertinent Family Hx, Cancer Family Medial History: CANCER 19 MOTHER (PATIENT DOES NOT KNOW LOCATION) Exam Exam Vital Signs Date Time Temp Pulse Resp B/P (MAP) Pulse Ox O2 Delivery O2 Flow Rate FiO2 01/24/17 06:00 81 16 129/75 91 Room Air 01/24/17 05:00 82 19 106/56 92 Room Air 01/24/17 04:00 96 Room Air 01/24/17 04:00 98.0 01/24/17 04:00 85 15 111/68 93 Room Air 01/24/17 03:00 86 14 103/61 94 Room Air 01/24/17 02:00 76 15 120/62 94 Room Air 01/24/17 01:00 89 01/24/17 01:00 89 14 114/58 95 Room Air 01/24/17 00:00 98 16 120/60 91 Room Air 01/24/17 00:00 96 Room Air 01/23/17 23:22 96 Room Air 01/23/17 23:00 105 21 144/84 96 Room Air 01/23/17 22:34 96 01/23/17 22:31 99 96 01/23/17 22:30 98.6 99 21 131/76 97 Room Air 01/23/17 22:17 93 01/23/17 21:57 99 21 96 01/23/17 18:20 98.0 104 18 136/64 98 General Appearance: No Apparent Distress, WD/WN HEENT: PERRL/EOMI, Other (POOR DENTITION) Neck: Full Range of Motion, Normal Inspection, Non Tender, Supple, No Carotid Bruit, No JVD Respiratory: Chest Non Tender, No Accessory Muscle Use, No Respiratory Distress , Wheezing (FAINT EXPIRATORY WHEEZING BILATERALLY), Other (FREQUENT DRY COUGH ON EXAM, WHICH RESOLVES SHORTLY AFTER ARRIVAL) Cardiovascular: No Edema, No Gallop, No JVD, No Murmur, Normal Peripheral Pulses, Tachycardia (MILD TACHYCARDIA 100-110'S) Capillary Refill: Less Than 3 Seconds Extremity: Normal Capillary Refill, Normal Inspection, Normal Range of Motion, Non Tender, No Calf Tenderness, No Pedal Edema Neurologic/Psychiatric: Alert, Oriented x3, No Motor/Sensory Deficits, Normal Mood/Affect, alteration inspector II-XII Norm as Tested Skin: Normal Color, Warm/Dry Results Lab Laboratory Tests 01/23/17 18:25 01/24/17 04:35 Assessment/Plan Assessment/Plan Acute right PE - Lovenox - 1mg/kg -Echo -change anticoagulation to PO probably today -bilateral dopplers CAD with recent stent placement -Pt has been on ASA COPD with current tobacco use - not exacerbated -Education -SVNS 255 Clinical Quality Measures AMI/AHF: ASA po Prior to arrival: Yes (81 MG) DVT/VTE Risk/Contraindication: Risk Factor Score Per Nursin RFS Level Per Nursing on Admit: 4+=Very High MAXIMUS FISHER DO Jan 24, 2017 07:29
--- NOTE | 2017-01-24 08:10 | Diagnostic Imaging Report ---
INDICATION: Chest pain. COMPARISON: 01/23/2017. FINDINGS: Visible lungs are clear. Posterior lower lobes are poorly evaluated by portable radiography. There is suggestion of numerous calcified bilateral tiny pulmonary nodules likely due to remote granulomatous infection. No pleural effusion or pneumothorax. Normal cardiomediastinal silhouette. IMPRESSION: 1. Stable exam without adverse development. Dictated by: Dictated on workstation # [id number]
--- NOTE | 2017-01-24 08:34 | Consultation-Cardiology ---
HPI-Cardiology Cardiology Consultation Date of Consultation 01/24/17 Date of Admission Time Seen by Provider: 08:28 Indication: chest pain HPI 56 years old lady with history of coronary artery disease, myocardial infarction , tobaccoism, was sitting at home had sudden sharp pain in her chest retrosternal radiating to the right side and right side of the neck and jaw. Came into the emergency room, workup showed pulmonary embolism denied any palpitation, syncope or near syncopal episodes. Patient is still an active smoker. Home Medications & Allergies Allergies: Coded Allergies: sulfamethoxazole (Verified Allergy, Intermediate, VOMITTING/MIGRAINE, ) trimethoprim (Verified Allergy, Intermediate, VOMITTING/MIGRAINE, 03/14/16 ) codeine (Unverified Allergy, Mild, TAKES HYDROCODONE AT HOME, 07/04/14) pentazocine (Unverified Adverse Reaction, Mild, N/V, HEAD ACHE, 07/04/14) Home Medication List Reviewed: Yes RIR-[id number]-[id number] Hx Patient Social History Marital Status: Alcohol Use: Past History Recreational Drug Use: Yes (HX OF THC, SPEED, COCAINE IN THE PAST. DENIES IV DRUG USE) Smoking Status: Current Everyday Smoker Type Used: Cigarettes 2nd Hand Smoke Exposure: No Recent Foreign Travel: No Recent Infectious Disease Expo: No Recent Hopitalizations: Yes (03/19/16 LITHOTRIPSY) Physical Abuse Screen: No Sexual Abuse: No Immunizations Up To Date Tetanus Booster (TDap): More than 5yrs Date of Pneumonia Vaccine: May 01, 2015 Date of Influenza Vaccine: Feb 21, 2016 Past Medical History medical history as discussed below Family Medical History Significant Family History: No Pertinent Family Hx, Cancer Family History: CANCER 19 MOTHER (PATIENT DOES NOT KNOW LOCATION) Constitutional: see HPI, malaise EENTM: see HPI, no symptoms reported Respiratory: see HPI, cough, dyspnea on exertion, No hemoptysis, No orthopnea, No phlegm, No short of breath, No stridor, No wheezing, No other Cardiovascular: see HPI, chest pain, No edema, No Hx of Intervention, No palpitations, No syncope, No vascular heart diseas, No other Gastrointestinal: no symptoms reported, see HPI Genitourinary: see HPI Musculoskeletal: no symptoms reported, see HPI Skin: no symptoms reported, see HPI Psychiatric/Neurological: No Symptoms Reported, See HPI Reviewed Test Results Reviewed Test Results Lab Laboratory Tests Test 01/23/17 18:25 01/23/17 18:39 01/24/17 04:35 Range/Units White Blood Count 19.5 H 15.1 H 4.3-11.0 10^3/uL Red Blood Count 4.98 4.55 4.35-5.85 10^6/uL Hemoglobin 14.6 13.2 11.5-16.0 G/DL Hematocrit 44 40 35-52 % Mean Corpuscular Volume 88 89 80-99 FL Mean Corpuscular Hemoglobin 29 29 25-34 PG Mean Corpuscular Hemoglobin Concent 33 33 32-36 G/DL Red Cell Distribution Width 14.8 H 15.0 H 10.0-14.5 % Platelet Count 535 H 459 H 130-400 10^3/uL Mean Platelet Volume 10.3 10.5 H 7.4-10.4 FL Neutrophils (%) (Auto) 67 62 42-75 % Lymphocytes (%) (Auto) 24 27 12-44 % Monocytes (%) (Auto) 8 10 0-12 % Eosinophils (%) (Auto) 1 1 0-10 % Basophils (%) (Auto) 0 1 0-10 % Neutrophils # (Auto) 13.1 H 9.3 H 1.8-7.8 X 10^3 Lymphocytes # (Auto) 4.6 H 4.0 1.0-4.0 X 10^3 Monocytes # (Auto) 1.6 H 1.5 H 0.0-1.0 X 10^3 Eosinophils # (Auto) 0.1 0.2 0.0-0.3 10^3/uL Basophils # (Auto) 0.1 0.1 0.0-0.1 10^3/uL Neutrophils % (Manual) 65 % Lymphocytes % (Manual) 31 % Monocytes % (Manual) 2 % Eosinophils % (Manual) 0 % Basophils % (Manual) 1 % Band Neutrophils 1 % Blood Morphology Comment NORMAL Prothrombin Time 12.8 12.2-14.7 SEC INR Comment 1.0 0.8-1.4 Activated Partial Thromboplast Time 26 24-35 SEC Sodium Level 139 141 135-145 MMOL/L Potassium Level 3.1 L 3.7 3.6-5.0 MMOL/L Chloride Level 105 107 98-107 MMOL/L Carbon Dioxide Level 23 23 21-32 MMOL/L Anion Gap 11 11 5-14 MMOL/L Blood Urea Nitrogen 20 H 20 H 7-18 MG/DL Creatinine 1.32 H 1.14 0.60-1.30 MG/DL Estimat Glomerular Filtration Rate 42 49 BUN/Creatinine Ratio 15 18 Glucose Level 146 H 145 H 70-105 MG/DL Calcium Level 9.7 9.3 8.5-10.1 MG/DL Magnesium Level 2.0 2.1 1.8-2.4 MG/DL Total Bilirubin 0.4 0.2 0.1-1.0 MG/DL Aspartate Amino Transf (AST/SGOT) 19 15 5-34 U/L Alanine Aminotransferase (ALT/SGPT) 20 16 0-55 U/L Alkaline Phosphatase 112 98 40-136 U/L Total Creatine Kinase 186 H 29-168 U/L Creatine Kinase MB 2.3 <6.6 NG/ML Troponin I < 0.30 <0.30 NG/ML B-Type Natriuretic Peptide 35.5 <100.0 PG/ML Total Protein 8.0 6.7 6.4-8.2 GM/DL Albumin 4.2 3.5 3.2-4.5 GM/DL Amylase Level 106 25-125 U/L Lipase 65 8-78 U/L Urine Color YELLOW Urine Clarity CLEAR Urine pH 6 5-9 Urine Specific [place] 1.020 1.016-1.022 Urine Protein 1+ H NEGATIVE Urine Glucose (UA) NEGATIVE NEGATIVE Urine Ketones NEGATIVE NEGATIVE Urine Nitrite NEGATIVE NEGATIVE Urine Bilirubin NEGATIVE NEGATIVE Urine Urobilinogen NORMAL NORMAL MG/DL Urine Leukocyte Esterase 1+ H NEGATIVE Urine RBC (Auto) 3+ H NEGATIVE Urine RBC 10-25 H /HPF Urine WBC 0-2 /HPF Urine Squamous Epithelial Cells 10-25 H /HPF Urine Crystals NONE /LPF Urine Bacteria TRACE /HPF Urine Casts NONE /LPF Urine Mucus NEGATIVE /LPF Urine Culture Indicated NO Phosphorus Level 4.5 2.3-4.7 MG/DL Physical Exam Vital Signs Vital Sign - Last 12Hours 01/23/17 01/23/17 18:20 22:30 Temp 98.0 Pulse 104 Resp 18 B/P (MAP) 136/64 Pulse Ox 98 O2 Delivery Room Air Capillary Refill : Less Than 3 Seconds General Appearance: No Apparent Distress, WD/WN Eyes: Bilateral Eye Normal Inspection, Bilateral Eye PERRL, Bilateral Eye EOMI HEENT: PERRL/EOMI, TMs Normal, Normal ENT Inspection, Pharynx Normal Neck: Full Range of Motion, Normal Inspection, Non Tender, Supple, Carotid Bruit Respiratory: Chest Non Tender, Lungs Clear, Normal Breath Sounds, No Accessory Muscle Use, No Respiratory Distress Cardiovascular: Regular Rate, Rhythm, No Edema, No Gallop, No JVD, No Murmur, Normal Peripheral Pulses Gastrointestinal: Normal Bowel Sounds, No Organomegaly, No Pulsatile Mass, Non Tender, Soft Back: Normal Inspection, No CVA Tenderness, No Vertebral Tenderness Extremity: Normal Capillary Refill, Normal Inspection, Normal Range of Motion, No Pedal Edema, Other (pain in the right calf) Neurologic/Psychiatric: Alert, Oriented x3, No Motor/Sensory Deficits, Normal Mood/Affect Skin: Normal Color, Warm/Dry Lymphatic: No Adenopathy A/P-Cardiology Admission Diagnosis Chest pain Acute pulmonary embolism Coronary artery disease Hypertension Hyperlipidemia Assessment/Plan Chest pain, secondary to acute pulmonary embolism, patient will be started on Xarelto 15 mg twice daily for 21 days then continue on 20 mg daily, continue on aspirin 81 mg daily. Acute pulmonary embolism, unknown source, have right calf tenderness. Plan to reevaluate venous Doppler. Patient is an active smoker and on hormone therapy Coronary artery disease, planning to repeat cardiac catheterization due to abnormal stress test, patient had transient ischemic dilatation of 1.25. Total infarction of the mid to apical inferior wall, true apex, mild jose-infarct ischemia involving the inferolateral wall and inferior septum.November 26, 2014 STEMI and cardiac catheterization by Dr. Franklin with angioplasty to the left dominant circumflex artery with 3 x 10 mm angioscope balloon. Drug eluted stenting of the proximal and ostial left circumflex artery. Stents were 4 x 16 mm Promus Premier, 4 x 12 mm Promus Premier. Patient also underwent balloon angioplasty of the ostial LAD. It was dilated with a 38 mm emerge balloon April 21, 2015 cardiac catheterization was done showing patent left main stent extending to the circumflex artery, patient had 40-50 percent ostial LAD stenosis, that is still present at that time. Conservative management is recommended, close monitoring is recommended.March 11, 2016 patient had patent stent in the left main, circumflex, had 40-50 percent ostial LAD stenosis , redo cardiac catheterization was done earlier this month with left groin access, patent stent in the left main and 50 percent ostial LAD which did not change compared to previous study. Congestive heart failure, chronic left ventricular systolic dysfunction, compensated, last echocardiogram was done today and showing normal left ventricular function, no further episodes of heart failure. Patient does not have congestive heart failure at this point Hypertension, restart home medication monitor blood pressure Hyperlipidemia, continue to monitor lipids History of rheumatoid arthritis, maintained on meloxicam and prednisone. History of bipolar disorder History of anxiety and depression Irritable bowel syndrome and history of diverticulitis-patient has history of perforated diverticulum of May 2014 for which she had emergency surgery with resection and colostomy. Colostomy reversed in July 2014. Monitored by Dr. Santoyo and primary care physician. Tobaccoism, educated in length on spoking cessation Clinical Quality Measures AMI/AHF: ASA po Prior to arrival: Yes (81 MG) DVT/VTE Risk/Contraindication: Risk Factor Score Per Nursin RFS Level Per Nursing on Admit: 4+=Very High AKBAR WILSON MD Jan 24, 2017 08:34
[2017-01-24] MEDS ORDERED: ONDANSETRON 4 MG/2 ML (SDV) Z0FRAN ONE (08:37)
[2017-01-24] MEDS ORDERED: RIVAROXABAN 15 MG TABLET (XARELTO) PO SCH (08:45)
[2017-01-24] MEDS ORDERED: PANTOPRAZOLE 40 MG/10 ML (PROTONIX) VIAL IV SCH (09:00)
[2017-01-24] MEDS ORDERED: ENOXAPARIN 60 MG/0.6 ML (LOVENOX) SYR SC SCH (09:00)
[2017-01-24] MEDS: ONDANSETRON 4 MG/2 ML (SDV) Z0FRAN IVP PRN ×3 (09:10→16:50)
--- NOTE | 2017-01-24 09:21 | History & Physical-Hospitalist ---
HPI History of Present Illness: HPI/Chief Complaint Pt is a 56yoCF with a PMH of cad s/p cath with stenting on hormone replacement therapy who presented to the ER with CC of acute onset chest pain. She states the it started on the left side and radiated to the right side and was 10/10 pain. She denies any dizziness currently or associated with it but does get dizzy often and thinks it may have been worse over the past couple of days. She also has some SOB (which is chronic) and she does not believe it has been worse the past few days. She denies a history of blood clots. Does have a history of OR s/p stent. She was cath-ed on 01/01 which showed a patent stent and no interventions were done at that time She has had a total hysterectomy and has been hormone replacement. Source: patient Date Seen 01/24/17 Time Seen by Provider: 07:20 Attending Physician Radha Barron DO PCP No,Local Physician Referring Physician Date of Admission Jan 23, 2017 at 21:13 Home Medications & Allergies Home Medications Reviewed patient Home Medication Reconciliation Form Allergies Allergies Coded Allergies sulfamethoxazole (Verified Allergy, Intermediate, VOMITTING/MIGRAINE, 03/14/16 ) trimethoprim (Verified Allergy, Intermediate, VOMITTING/MIGRAINE, 03/14/16) codeine (Unverified Allergy, Mild, TAKES HYDROCODONE AT HOME, 07/04/14) pentazocine (Unverified Adverse Reaction, Mild, N/V, HEAD ACHE, 07/04/14) Past Cxllwqg-Vzhbmo-Awybsf Hx Patient Social History Marrital Status: Alcohol Use: Past History Recreational Drug Use: Yes (HX OF THC, SPEED, COCAINE IN THE PAST. DENIES IV DRUG USE) Smoking Status: Current Everyday Smoker Type Used: Cigarettes 2nd Hand Smoke Exposure: No Physical Abuse Screen: No Sexual Abuse: No Recent Foreign Travel: No Contact w/other who traveled: No Recent Hopitalizations: Yes (03/19/16 LITHOTRIPSY) Recent Infectious Disease Expo: No Immunizations Up To Date Tetanus Booster (TDap): More than 5yrs Pediatric: No Date of Pneumonia Vaccine: May 01, 2015 Date of Influenza Vaccine: Feb 21, 2016 Seasonal Allergies Seasonal Allergies: Yes Surgeries Yes (COLON RESECTION WITH COLOSTOMY AND LATER REVERSAL FOR DIVERTICULITIS WITH PERFORATION; EGD'S /COLONOSCOPIES: KIDNEY STONE REMOVAL ; LITHOTRIPSY;; HYST/BSO ; CARDIAC CATHS--STENTS X 1 OR 2 ; "EXPLORATORY" ABDOMINAL SURGERY X 2; LEFT BREAST BIOPSY) Abdominal, Appendectomy, Bowel Surgery, Breast, Cardiac, Coronary Stent, Gallbladder, Hysterectomy, Oophorectomy, Renal Respiratory Yes (RESPIRATORY FAILURE ON VENT X 1 ) COPD Currently Using CPAP: No Currently Using BIPAP: No Cardiovascular Yes (STENT PLACED OCTOBER 2014 AFTER OR) Coronary Artery Disease, Heart Attack, High Cholesterol, Hypertension Neurological Yes Seizure Disorder 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 System Hx 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 Disorders: Yes (CERVICAL DYSPLASIA--S/P HYST/BSO) Sexually Transmitted Disease: No HIV/AIDS: No 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 Disorders: Denies COLLECTION TEAM LEAD History: Hysterectomy Genitourinary Yes Bladder Infection, Kidney Stones, Renal Failure Gastrointestinal Yes Gastroesophageal Reflux, Diverticulosis, Irritable Bowel Musculoskeletal Yes Arthritis, Fibromyalgia, Rheumatoid Arthritis Endocrine History of Endocrine Disorders: No HEENT History of HEENT Disorders: Yes HEENT Disorders: Glaucoma Loss of Vision: Denies Hearing Impairment: Denies Cancer No Psychosocial History of Psychiatric Problem: Yes Behavioral Health Disorders: Anxiety, Bipolar, Depression Integumentary History of Skin or Integumenta: Yes (SHINGLES) Blood Transfusions History of Blood Disorders: No Adverse Reaction to a Blood Tr: No Family Medical History Significant Family History: Cancer, Other Conditions/Hx (daughter- blood clot) Family Hx: CANCER 19 MOTHER (PATIENT DOES NOT KNOW LOCATION) Review of Systems Constitutional: No chills, No fever EENTM: No blurred vision, No double vision, No nose congestion, No throat pain Respiratory: cough, dyspnea on exertion, short of breath Cardiovascular: chest pain, No edema, Hx of Intervention, No palpitations Gastrointestinal: No abdominal pain, No constipation, No diarrhea, No nausea, No vomiting Genitourinary: No dysuria, No frequency Musculoskeletal: No joint pain, No muscle pain Skin: No lesions, No rash Psychiatric/Neurological: Headache, Denies Numbness, Denies Tingling, Other ( dizziness) Physical Exam Physical Exam Vital Signs Vital Sign - Last 12Hours 01/23/17 01/23/17 18:20 22:30 Temp 98.0 Pulse 104 Resp 18 B/P (MAP) 136/64 Pulse Ox 98 O2 Delivery Room Air Capillary Refill : Less Than 3 Seconds General Appearance: No Apparent Distress, WD/WN HEENT: PERRL/EOMI, Moist Mucous Membranes Neck: Non Tender, Supple, No JVD, No Thyromegaly Respiratory: Lungs Clear, No Respiratory Distress Cardiovascular: Regular Rate, Rhythm, No Murmur Gastrointestinal: Normal Bowel Sounds, Non Tender, Soft Extremity: Normal Capillary Refill, Non Tender, No Calf Tenderness, No Pedal Edema Neurologic/Psychiatric: Alert, Oriented x3, Normal Mood/Affect Skin: Normal Color, Warm/Dry Results Results/Procedures Lab Laboratory Tests 01/23/17 18:25 01/24/17 04:[address] ANGIO CHEST W IMPRESSION: 1. Pulmonary emboli extending into the right lower lobe as described with no central embolus present. 2. Remaining changes chronic in appearance as described above. Pertinent findings called to Dr. Bruce by Dr. Vera at the time of dictation on 01/23/2017 at 8:30 PM. Assessment/Plan Admission Diagnosis Right lower lobe pulmonary emboli Diagnosis/Problems Diagnosis/Problems (1) Pulmonary embolism Status: Acute Assessment & Plan: Received Lovenox in ER Transition to Xarelto DC Toradol No evidence of right heart failure Pulm and Cardiology consulted Will DC Plavix, on Xarelto as above Discussed increased risk of VTE with HRT, advised to discontinued I personally called and spoke with her PCP's nurse and left message regarding diagnosis and recommendations Echo ordered Qualifiers: Qualified Codes: I26.99 - Other pulmonary embolism without acute cor pulmonale (2) On hormone replacement therapy Status: Chronic Assessment & Plan: On HRT and an active smoking Very likely cause of PE I called and relayed information to PCP Advised patient to DC use of HRT given risks and acute PE (3) CAD (coronary artery disease) Status: Chronic Assessment & Plan: Recent cath on 01/[address] Dobbins Consulted, appreciate recs Qualifiers: Qualified Codes: I25.10 - Atherosclerotic heart disease of [place] coronary artery without angina pectoris (4) Essential (primary) hypertension Status: Chronic Assessment & Plan: Well controlled, will resume home meds (5) Anxiety and depression Status: Chronic Assessment & Plan: Resume Effexor and Xanax (6) COPD (chronic obstructive pulmonary disease) Status: Chronic Assessment & Plan: No signs of exacerbation MAT protocol Pulm consulted, appreciate recs (7) Thrombocytosis Status: Acute Assessment & Plan: Likely reactive History of thrombocytopenia Trend (8) Hyperglycemia Status: Acute Assessment & Plan: Likely stress induced Trend (9) Hypokalemia Status: Resolved Assessment & Plan: On K protocol (10) Prophylactic measure Assessment & Plan: Xarelto Saline Lock Cardiac Diet Clinical Quality Measures AMI/AHF: ASA po Prior to arrival: Yes (81 MG) DVT/VTE Risk/Contraindication: Risk Factor Score Per Nursin RFS Level Per Nursing on Admit: 4+=Very High AXEL MANDUJANO MD Jan 24, 2017 9:21 am
[2017-01-24] MEDS: ASPIRIN E.C. 81 MG (ECOTRIN) TAB PO SCH (10:05)
[2017-01-24] MEDS: RIVAROXABAN 15 MG TABLET (XARELTO) PO SCH ×2 (10:05→16:50)
[2017-01-24] MEDS ORDERED: D-ME118S7 PO (10:47)
[2017-01-24] MEDS ORDERED: ALBU18HF2 INH (10:47)
--- NOTE | 2017-01-24 11:24 | Diagnostic Imaging Report ---
EXAMINATION: Bilateral lower extremity duplex venous ultrasound. TECHNIQUE: DVT protocol. Multiple sonographic images with color Doppler and waveform interrogation were performed of the lower extremity veins, bilaterally, with compression and augmentation maneuvers. INDICATION: Pulmonary embolism. FINDINGS: The lower extremity veins from the common femoral veins to below the knee veins were examined with normal color-flow, compressibility and normal waveform demonstrated. The great saphenous vein bilaterally is patent. IMPRESSION: No evidence of DVT in either lower extremity. Dictated by: Dictated on workstation # [id number]
[2017-01-24] MEDS: ACETAMINOPHEN 500 MG TAB (TYLENOL) PO PRN ×2 (11:34→18:05)
[2017-01-24] MEDS ORDERED: VENlafaxine XR 75 MG (EFFEXOR XR) CAP PO ONE (12:17)
[2017-01-24] MEDS: VENlafaxine XR 75 MG (EFFEXOR XR) CAP PO SCH ×2 (12:26→19:03)
[2017-01-24] MEDS ORDERED: NITROGLYCERIN 0.4 MG SL TABS BTL 25'S SL PRN (13:15)
[2017-01-24] MEDS ORDERED: ALPRAZolam 0.25 MG (XANAX) TAB PO PRN (13:15)
[2017-01-24] MEDS ORDERED: ARTIFICAL TEARS 0.4 ML UNIT DOSE (REFRESH PLUS) OU PRN (13:45)
[2017-01-24] MEDS: CYCLOBENZAPRINE 10 MG (FLEXERIL) TAB PO PRN (18:05)
[2017-01-24] MEDS: meTOprolol TARTRATE 25 MG (LOPRESSOR) TABLET PO SCH (20:45)
[2017-01-24] MEDS: toPIRamate 25 MG (TOPAMAX) TAB PO SCH (20:46)
[2017-01-24] MEDS: ATORVASTATIN 20 MG (LIPITOR) TABLET PO SCH (20:46)
[2017-01-24] MEDS ORDERED: NON-FORMULARY MEDICATION 1 EA EA (Lansoprazole 30 MG) PO SCH (21:00)
[2017-01-24] MEDS ORDERED: predniSONE 10 MG TAB PO SCH (21:00)
[2017-01-24] MEDS ORDERED: NON-FORMULARY MEDICATION 1 EA EA (Cyclosporine (Restasis) 1 DROP) OU SCH (21:00)
[2017-01-24] MEDS ORDERED: ASPIRIN E.C. 81 MG (ECOTRIN) TAB PO SCH (21:00)
[2017-01-24] MEDS ORDERED: PANTOPRAZOLE 40 MG (PROTONIX) TAB PO SCH (21:00)
[2017-01-24] MEDS ORDERED: TOPIRAMATE 25 MG PO SCH (21:00)
[2017-01-24] MEDS ORDERED: VENlafaxine XR 75 MG (EFFEXOR XR) CAP PO SCH (21:00)
[2017-01-24] MEDS ORDERED: PANTOPRAZOLE 20 MG TABLET (PROTONIX) PO SCH (21:00)
[2017-01-24] MEDS ORDERED: FENOFIBRATE 134 MG (LOFIBRA) CAPSULE PO SCH (21:00)
[2017-01-24] MEDS ORDERED: LATANOPROST 0.005% (XALATAN) OPHTH SOLN 2.5 ML OU SCH (21:00)
[2017-01-25] VITALS (14 sets, daily range): BP systolic 107–128; BP diastolic 48–76
[2017-01-25 04:10] LABS: BASOPHILS % (AUTO) 0 % (0-10); EOSINOPHILS # (AUTO) 0.1 10^3/uL (0.0-0.3); EOSINOPHILS % (AUTO) 1 % (0-10); LYMPHOCYTES # (AUTO) 1.4 X 10^3 (1.0-4.0); LYMPHOCYTES % (AUTO) 13 % (12-44); MEAN CORPUSCULAR HEMOGLOBIN 29 PG (25-34); MEAN CORPUSCULAR HGB CONC 32 G/DL (32-36); MEAN CORPUSCULAR VOLUME 89 FL (80-99); MEAN PLATELET VOLUME 10.1 FL (7.4-10.4); MONOCYTES # (AUTO) 0.6 X 10^3 (0.0-1.0); MONOCYTES % (AUTO) 6 % (0-12); NEUTROPHILS # (AUTO) 8.8 X 10^3 (1.8-7.8); NEUTROPHILS % (AUTO) 81 % (42-75); PLATELET COUNT 403 10^3/uL (130-400); RED BLOOD COUNT 4.57 10^6/uL (4.35-5.85); RED CELL DISTRIBUTION WIDTH 14.9 % (10.0-14.5)
[2017-01-25] MEDS: ACETAMINOPHEN 500 MG TAB (TYLENOL) PO PRN (04:24)
[2017-01-25] MEDS: CYCLOBENZAPRINE 10 MG (FLEXERIL) TAB PO PRN (04:24)
[2017-01-25 04:44] LABS: CALCIUM 9.7 MG/DL (8.5-10.1); CREATININE SERUM 1.13 MG/DL (0.60-1.30); PHOSPHORUS 3.7 MG/DL (2.3-4.7); POTASSIUM 4.5 MMOL/L (3.6-5.0)
[2017-01-25] MEDS: RIVAROXABAN 15 MG TABLET (XARELTO) PO SCH (06:46)
[2017-01-25] MEDS: KCL 20 MEQ TAB (K-DUR) PO SCH (06:56)
[2017-01-25] MEDS: POTASSIUM CL 10MEQ/50ML IVPB 50 ML IV SCH (06:56)
[2017-01-25] MEDS: MAGNESIUM 1 GM/100 ML IVPB 100 ML IV SCH (06:56)
[2017-01-25] MEDS: RT-ALBUTEROL SULF 2.5 MG/3 ML PRE-MIX VIAL IH SCH ×2 (07:06→11:06)
--- NOTE | 2017-01-25 08:18 | Discharge Summary-Hospitalist ---
Diagnosis/Chief Complaint Date of Admission Jan 23, 2017 at 9:13 pm Date of Discharge Discharge Date: Jan 25, 2017 Admission Diagnosis Right lower lobe pulmonary emboli Discharge Diagnosis Right lower lobe pulmonary emboli (1) Pulmonary embolism Status: Acute Assessment & Plan: Received Lovenox in ER Transition to Xarelto DC Toradol No evidence of right heart failure Pulm and Cardiology consulted Will DC Plavix, on Xarelto as above Discussed increased risk of VTE with HRT, advised to discontinued I personally called and spoke with her PCP's nurse and left message regarding diagnosis and recommendations Echo ordered (2) On hormone replacement therapy Status: Chronic Assessment & Plan: On HRT and an active smoking Very likely cause of PE I called and relayed information to PCP Advised patient to DC use of HRT given risks and acute PE (3) CAD (coronary artery disease) Status: Chronic Assessment & Plan: Recent cath on 01/[address] Dobbins Consulted, appreciate recs Will stop Plavix but continue ASA (4) Essential (primary) hypertension Status: Chronic Assessment & Plan: Well controlled, will resume home meds (5) Anxiety and depression Status: Chronic Assessment & Plan: Resume Effexor and Xanax (6) COPD (chronic obstructive pulmonary disease) Status: Chronic Assessment & Plan: No signs of exacerbation MAT protocol Pulm consulted, appreciate recs (7) Thrombocytosis Status: Acute Assessment & Plan: Likely reactive, improving History of thrombocytopenia Trend (8) Hyperglycemia Status: Acute Assessment & Plan: Likely stress induced Trend (9) Hypokalemia Status: Resolved Assessment & Plan: On K protocol (10) Prophylactic measure Assessment & Plan: Xarelto Saline Lock Cardiac Diet Discharge Summary Discharge Physical Examination Allergies: Coded Allergies: sulfamethoxazole (Verified Allergy, Intermediate, VOMITTING/MIGRAINE, ) trimethoprim (Verified Allergy, Intermediate, VOMITTING/MIGRAINE, 03/14/16 ) codeine (Unverified Allergy, Mild, TAKES HYDROCODONE AT HOME, 07/04/14) pentazocine (Unverified Adverse Reaction, Mild, N/V, HEAD ACHE, 07/04/14) Vitals & I&Os Vital Signs Date Time Temp Pulse Resp B/P (MAP) Pulse Ox O2 Delivery O2 Flow Rate FiO2 01/25/17 12:12 96.7 80 16 108/48 92 Room Air 01/25/17 07:06 1.00 Hospital Course Labs (last 24 hrs) Laboratory Tests 01/25/17 03:46: White Blood Count 11.0, Red Blood Count 4.57, Hemoglobin 13.2, Hematocrit 41, Mean Corpuscular Volume 89, Mean Corpuscular Hemoglobin 29, Mean Corpuscular Hemoglobin Concent 32, Red Cell Distribution Width 14.9H, Platelet Count 403H, Mean Platelet Volume 10.1, Neutrophils (%) (Auto) 81H, Lymphocytes (%) (Auto) 13 , Monocytes (%) (Auto) 6, Eosinophils (%) (Auto) 1, Basophils (%) (Auto) 0, Neutrophils # (Auto) 8.8H, Lymphocytes # (Auto) 1.4, Monocytes # (Auto) 0.6, Eosinophils # (Auto) 0.1, Basophils # (Auto) 0.0, Sodium Level 140, Potassium Level 4.5, Chloride Level 107, Carbon Dioxide Level 23, Anion Gap 10, Blood Urea Nitrogen 17, Creatinine 1.13, Estimat Glomerular Filtration Rate 50, BUN/ Creatinine Ratio 15, Glucose Level 151H, Calcium Level 9.7, Phosphorus Level 3.7 , Magnesium Level 2.0 Microbiology 01/23/17 Influenza Types A,B Antigen (DESI) - Final, Complete Pending Labs Discussion & Recommendations Pt is 56yCF with a PMH of CAD, hot flashes on HRT, and current tobacco use who presented to the ER with chief complaint of sudden onset chest pain. CTA was performed and showed a RLL pulmonary emboli. She was started on Lovenox in the ER and transitioned to Xarelto. There was no signs of right heart failure and oxygen was stable on room air. She was discharged home with a Xarelto starter pack to follow up with her PCP. She was advised on the increased risk of recurrent VTE with active smoking and HRT. Discharge Home Medications: Active Scripts Active Xarelto Starter Pack (Rivaroxaban) 1 Each Tab.ds.pk 1 Each PO UD 15mg by mouth twice daily x 21 days then 20mg by mouth daily Reported Promethazine-Dm Syrup (D-Methorphan Hb/Prometh HCl) 118 Ml Syrup 5 Ml PO Q4H PRN Ventolin Hfa (Albuterol Sulfate) 18 Gm Hfa.aer.ad 2 Puff INH Q4H PRN Ibuprofen 800 Mg Tablet 800 Mg PO Q8H PRN Restasis (Cyclosporine) 1 Each Droperette 1 Drop OU BID Latanoprost 2.5 Ml Drops 1 Drop OU HS Prednisone 10 Mg Tab 10 Mg PO HS Cyclobenzaprine HCl 10 Mg Tablet 10 Mg PO TID PRN Alprazolam 0.25 Mg Tablet 0.25 Mg PO BID PRN Aspirin EC (Aspirin) 81 Mg Tablet.dr 81 Mg PO HS Ondansetron HCl 4 Mg Tablet 4 Mg PO Q6H PRN Acetaminophen 500 Mg Tablet 1,000 Mg PO Q6H PRN Nitroglycerin 0.4 Mg Tab.subl 0.4 Mg SL UD PRN Metoprolol Tartrate 25 Mg Tablet 12.5 Mg PO BID TAKES 1/2 OF A (25 MG) TABLET Topiramate 50 Mg Tablet 25 Mg PO BID TAKES 1/2 (50MG) TABLET Atorvastatin Calcium 20 Mg Tablet 20 Mg PO BID Fenofibrate (Fenofibrate,Micronized) 134 Mg Capsule 134 Mg PO HS Lansoprazole 30 Mg Capsule.dr 30 Mg PO HS Estradiol Tablet (Estradiol) 1 Mg Tablet 1 Mg PO HS Venlafaxine HCl ER (Venlafaxine HCl) 75 Mg Cap.er.24h 75 Mg PO HS Instructions to patient/family Please see electronic discharge instructions given to patient. Clinical Quality Measures AMI/AHF: ASA po Prior to arrival: Yes (81 MG) DVT/VTE Risk/Contraindication: VTE Present on Admission: Yes Risk Factor Score Per Nursin RFS Level Per Nursing on Admit: 4+=Very High Copy Copies To 1: MAXIMUS FISHER DO; ADRIANNA HAND MD; AKBAR DOBBINS MD Problem Qualifiers (1) Pulmonary embolism: Pulmonary embolism type: other Chronicity: acute Acute cor pulmonale presence: without acute cor pulmonale Qualified Codes: I26.99 - Other pulmonary embolism without acute cor pulmonale (2) CAD (coronary artery disease): Coronary Disease-Associated Artery/Lesion type: [place] artery [place] vs. transplanted heart: [place] heart Associated angina: angina presence unspecified Qualified Codes: I25.10 - Atherosclerotic heart disease of [place] coronary artery without angina pectoris AXEL MANDUJANO MD Jan 25, 2017 08:18
[2017-01-25] MEDS ORDERED: RIVA1TAB PO (08:21)
[2017-01-25] MEDS: meTOprolol TARTRATE 25 MG (LOPRESSOR) TABLET PO SCH (08:37)
[2017-01-25] MEDS: ATORVASTATIN 20 MG (LIPITOR) TABLET PO SCH (08:37)
[2017-01-25] MEDS: toPIRamate 25 MG (TOPAMAX) TAB PO SCH (08:37)
[2017-01-25] MEDS: ASPIRIN E.C. 81 MG (ECOTRIN) TAB PO SCH (08:38)
--- NOTE | 2017-01-25 10:25 | Cardiology Progress Note ---
Subjective Date Seen by Provider: Jan 25, 2017 Time Seen by Provider: 10:23 Subjective/Events-last exam patient is laying down in bed, feeling better. No new complaint. Review of Systems General: No Chills, No Night Sweats, No Fatigue, No Malaise, No Appetite, No Other HEENT: No Head Aches, No Visual Changes, No Eye Pain, No Ear Pain, No Dysphasia , No Sinus Congestion, No Post Nasal Drip, No Sore Throat, No Other Pulmonary: No Dyspnea, No Cough, No Pleuritic Chest Pain, No Other Cardiovascular: Chest Pain, No: Palpitations, Orthopnea, Paroxysmal Noc. Dyspnea, Edema, Lt Headedness, Other Objective-Cardiology Exam Last Set of Vital Signs Vital Signs 01/25/17 01/25/17 01/25/17 07:06 08:35 09:00 Temp 98.0 Pulse 80 Resp 15 B/P (MAP) 116/67 Pulse Ox 92 O2 Delivery Room Air O2 Flow Rate 1.00 Capillary Refill : Less Than 3 Seconds I&O Intake and Output 01/26/17 00:00 Intake Total 400 ml Output Total 1125 ml Balance -725 ml Intake Oral 400 ml Output Urine Total 1125 ml General: Alert, Oriented X3, Cooperative HEENT: Atraumatic, PERRLA Neck: Supple, No JVD, No Thyromegaly Lungs: Clear to Auscultation, Normal Air Movement Heart: Regular Rate, Normal S1, Normal S2, No Murmurs Abdomen: Normal Bowel Sounds, Soft, No Tenderness, No Hepatosplenomegaly, No Masses Extremities: No Clubbing, No Cyanosis, No Edema, Normal Pulses, No Tenderness/ Swelling Skin: No Rashes, No Breakdown, No Significant Lesion Neuro: Normal Gait, Normal Speech, Strength at 5/5 X4 Ext, Normal Tone, Sensation Intact Psych/Mental Status: Mental Status NL, Mood NL Results Lab Laboratory Tests 01/25/17 03:46 A/P-Cardiology Admission Diagnosis Chest pain Acute pulmonary embolism Coronary artery disease Hypertension Hyperlipidemia Assessment/Plan Chest pain, secondary to acute pulmonary embolism, started on Xarelto 15 mg twice daily for 21 days then continue on 20 mg daily, continue on aspirin 81 mg daily. Acute pulmonary embolism, unknown source, have right calf tenderness. venous Doppler is negative Coronary artery disease, planning to repeat cardiac catheterization due to abnormal stress test, patient had transient ischemic dilatation of 1.25. Total infarction of the mid to apical inferior wall, true apex, mild jose-infarct ischemia involving the inferolateral wall and inferior septum.November 26, 2014 STEMI and cardiac catheterization by Dr. Franklin with angioplasty to the left dominant circumflex artery with 3 x 10 mm angioscope balloon. Drug eluted stenting of the proximal and ostial left circumflex artery. Stents were 4 x 16 mm Promus Premier, 4 x 12 mm Promus Premier. Patient also underwent balloon angioplasty of the ostial LAD. It was dilated with a 38 mm emerge balloon April 21, 2015 cardiac catheterization was done showing patent left main stent extending to the circumflex artery, patient had 40-50 percent ostial LAD stenosis, that is still present at that time. Conservative management is recommended, close monitoring is recommended.March 11, 2016 patient had patent stent in the left main, circumflex, had 40-50 percent ostial LAD stenosis , redo cardiac catheterization was done earlier this month with left groin access, patent stent in the left main and 50 percent ostial LAD which did not change compared to previous study. Congestive heart failure, chronic left ventricular systolic dysfunction, compensated, last echocardiogram was done today and showing normal left ventricular function, no further episodes of heart failure. Patient does not have congestive heart failure at this point Hypertension, restart home medication monitor blood pressure Hyperlipidemia, continue to monitor lipids History of rheumatoid arthritis, maintained on meloxicam and prednisone. History of bipolar disorder History of anxiety and depression Irritable bowel syndrome and history of diverticulitis-patient has history of perforated diverticulum of May 2014 for which she had emergency surgery with resection and colostomy. Colostomy reversed in July 2014. Monitored by Dr. Santoyo and primary care physician. Tobaccoism, educated in length on spoking cessation Ok for discharge, follow up as an outpatient Clinical Quality Measures AMI/AHF: ASA po Prior to arrival: Yes (81 MG) DVT/VTE Risk/Contraindication: VTE Present on Admission: Yes Risk Factor Score Per Nursin RFS Level Per Nursing on Admit: 4+=Very High AKBAR WILSON MD Jan 25, 2017 10:25
--- NOTE | 2017-01-25 12:22 | Diagnostic Imaging Report ---
INDICATION: Chest pain, pulmonary embolus. TECHNIQUE: Single-view chest at 05:12 a.m. CORRELATION STUDY: 01/24/2014. FINDINGS: The heart size, mediastinal configuration and pulmonary vascularity are relatively stable. There has been development of slight asymmetric elevation of the right diaphragm. Underlying small effusion not excluded. No definitive infiltrate or findings to suggest pulmonary infarct. Extensive tiny calcified granulomas are again noted throughout both lung nam. IMPRESSION: 1. Slight asymmetric elevation of the right diaphragm. May be trace right pleural effusion; however, no definitive infiltrate or otherwise adverse interval change suggested. Dictated by: Dictated on workstation # [id number]
== END 2017-01-25 14:00 | disposition home or self-care (01) | DRG 176 ==
LOC: EDUNIT# 18:20 → ER 18:22 → ICU 21:13
PROVIDERS: ADMIT Internal Medicine; ATTEND Internal Medicine
DX: I26.99 Other pulmonary embolism without acute cor pulmonale (principal); I10 Essential (primary) hypertension; I25.10 Atherosclerotic heart disease of native coronary artery without angina pectoris; J44.9 Chronic obstructive pulmonary disease, unspecified; D47.3 Essential (hemorrhagic) thrombocythemia; R73.9 Hyperglycemia, unspecified; E87.6 Hypokalemia; F17.210 Nicotine dependence, cigarettes, uncomplicated; E78.5 Hyperlipidemia, unspecified; J45.909 Unspecified asthma, uncomplicated; M06.9 Rheumatoid arthritis, unspecified; M79.7 Fibromyalgia; K21.9 Gastro-esophageal reflux disease without esophagitis; F41.9 Anxiety disorder, unspecified; F31.9 Bipolar disorder, unspecified; I25.2 Old myocardial infarction; Z95.5 Presence of coronary angioplasty implant and graft; Z79.890 Hormone replacement therapy
CPT/HCPCS: 36415; 71010; 71275; 80048; 80053; 81000; 82150; 82550; 82553; 83690; 83735; 83880; 84100; 84484; 85007; 85025; 85027; 85610; 85730; 87804; 93005; 93306; 93970; 94640; 96372; 96374

== ENCOUNTER 2017-01-29 16:04 | Emergency (ER) | payer MEDICARE, MEDICAID ==
[~2017-01-29] VITALS: Ht 152.4 cm; Wt 80.3 kg
[~2017-01-29 16:04] MED LIST changes: +ALBU18HF2 INH; +D-ME118S7 PO; +RIVA1TAB PO
[2017-01-29] MEDS ORDERED: fentaNYL INJECTION 100 MCG/2 ML AMP IVP ONE (17:00)
[2017-01-29] MEDS ORDERED: NS IV 1000 ML 1,000 ML IV ONE (17:00)
[2017-01-29 17:38] LABS: BASOPHILS # (AUTO) 0.1 10^3/uL (0.0-0.1); BASOPHILS % (AUTO) 1 % (0-10); EOSINOPHILS # (AUTO) 0.1 10^3/uL (0.0-0.3); EOSINOPHILS % (AUTO) 1 % (0-10); LYMPHOCYTES # (AUTO) 3.9 X 10^3 (1.0-4.0); LYMPHOCYTES % (AUTO) 18 % (12-44); MEAN CORPUSCULAR HEMOGLOBIN 29 PG (25-34); MEAN CORPUSCULAR HGB CONC 33 G/DL (32-36); MEAN CORPUSCULAR VOLUME 87 FL (80-99); MEAN PLATELET VOLUME 10.1 FL (7.4-10.4); MONOCYTES # (AUTO) 1.9 X 10^3 (0.0-1.0); MONOCYTES % (AUTO) 9 % (0-12); NEUTROPHILS # (AUTO) 15.3 X 10^3 (1.8-7.8); NEUTROPHILS % (AUTO) 72 % (42-75); PLATELET COUNT 449 10^3/uL (130-400); RED BLOOD COUNT 4.81 10^6/uL (4.35-5.85); RED CELL DISTRIBUTION WIDTH 14.4 % (10.0-14.5); WHITE BLOOD COUNT 21.3 10^3/uL (4.3-11.0)
[2017-01-29 17:54] LABS: ALANINE AMINOTRANSFERASE 23 U/L (0-55); ALBUMIN 3.8 GM/DL (3.2-4.5); ANION GAP 13 MMOL/L (5-14); ASPARTATE AMINO TRANSFERASE 20 U/L (5-34); BAND NEUTROPHILS 1 %; BASOPHILS % (MANUAL) 0 %; BILIRUBIN,TOTAL 0.3 MG/DL (0.1-1.0); BLOOD UREA NITROGEN 17 MG/DL (7-18); BUN/CREATININE RATIO 15; CALCIUM 9.4 MG/DL (8.5-10.1); CARBON DIOXIDE 19 MMOL/L (21-32); CHLORIDE 107 MMOL/L (98-107); CREATININE SERUM 1.16 MG/DL (0.60-1.30); EOSINOPHILS % (MANUAL) 0 %; GFR ESTIMATED 48; GLUCOSE 101 MG/DL (70-105); LIPASE 48 U/L (8-78); LYMPHOCYTES % (MANUAL) 20 %; NEUTROPHILS % (MANUAL) 71 %; POTASSIUM 3.5 MMOL/L (3.6-5.0); SODIUM 139 MMOL/L (135-145); TOTAL PROTEIN 6.9 GM/DL (6.4-8.2); hs C REACTIVE PROTEIN 1.12 MG/DL (0.00-0.50)
[2017-01-29 17:59] LABS: TROPONIN I < 0.30 NG/ML (<0.30)
--- NOTE | 2017-01-29 18:10 | Diagnostic Imaging Report ---
INDICATION: Cough and congestion with left rib pain. COMPARISON: 01/25/2017. FINDINGS: PA and lateral views show the lungs to be well aerated. No infiltrates have developed. There is hyperaeration with flattening of the diaphragms bilaterally. There are chronic interstitial changes again noted. There is deformity of the left posterior fifth rib now. There may also be deformity of the left posterior fourth rib. There is no pneumothorax or pleural effusion. IMPRESSION: 1. New changes consistent with rib fractures posteriorly in the left fourth and fifth ribs. Dedicated rib films will be reviewed. 2. Obstructive interstitial lung disease with no acute infiltrates. Dictated by: Dictated on workstation # [id number]
--- NOTE | 2017-01-29 18:13 | Diagnostic Imaging Report ---
INDICATION: New onset of left rib pain. FINDINGS: There is irregularity along the posterior left fifth rib. There also is question of a possible nondisplaced fracture just superior to this in the posterior fourth rib. Remaining ribs otherwise appear normal. IMPRESSION: 1. Mildly displaced left posterior fifth rib. 2. Question of nondisplaced left posterior fourth rib. No pneumothorax or pleural effusion. Dictated by: Dictated on workstation # [id number]
[2017-01-29 18:19] LABS: BILIRUBIN,URINE NEGATIVE (NEGATIVE); KETONES,URINE NEGATIVE (NEGATIVE); LEUKOCYTE ESTERASE ,URINE NEGATIVE (NEGATIVE); NITRITE,URINE NEGATIVE (NEGATIVE); PH,URINE 6 (5-9); PROTEIN,URINE NEGATIVE (NEGATIVE); UROBILINOGEN,URINE NORMAL (NORMAL)
--- NOTE | 2017-01-29 18:22 | ED General ---
General Chief Complaint: Chest Wall/Rib Pain Stated Complaint: HIGH HEART RATE,HIGH BLOOD PRESSURE Nursing Triage Note: AMB TO ROOM REPORTS WAS DISCHARGED FROM HOSPITAL ON 01/24 WITH PE. LAST SEVERAL DAY'S HER HR HAS BEEN IN 120 B/P ELEVATED ,HAVING COUGH AND CONGESTION, PAIN WHEN COUGHING IN CHEST L LOWER ABD CRAMPING. Nursing Sepsis Screen: No Definite Risk Source of Information: Patient, Old Records Exam Limitations: No Limitations History of Present Illness Time Seen by Provider: 16:35 Initial Comments This 56-year-old woman presents to the emergency room with complaints of worsening productive cough and left lower lateral chest wall pain. Pain is worse with cough, movement, and deep breathing. Patient was admitted to the hospital January 23 with diagnosis of right-sided pulmonary embolus. She sometimes has some pain with eating and nausea in the mornings area she reports some dizziness upon standing and tachycardia. She has mild shortness of breath , worse with exertion. On my assessment she was noted to have a drop of about 15 points in her systolic blood pressure with standing. Heart rate increased to about 10 bpm. Review of her chart also notes a cardiac catheterization performed on January 01. She had a 50 percent stenosis of the LAD as well as some small vessel disease. Ejection fraction was 35-40 percent. Patient is rather tender to palpation over the left lower lateral chest. She is a patient of Dr. Dobbins and Dr. Hand's her primary care provider. She is presently on Xarelto and denies any lapses in her dosing regimen. Allergies and Home Medications Allergies Coded Allergies: sulfamethoxazole (Verified Allergy, Intermediate, VOMITTING/MIGRAINE, ) trimethoprim (Verified Allergy, Intermediate, VOMITTING/MIGRAINE, 03/14/16 ) codeine (Unverified Allergy, Mild, TAKES HYDROCODONE AT HOME, 07/04/14) pentazocine (Unverified Adverse Reaction, Mild, N/V, HEAD ACHE, 07/04/14) Home Medications Acetaminophen 500 Mg Tablet, 1,000 MG PO Q6H PRN for PAIN-MILD, (Reported) Albuterol Sulfate 18 Gm Hfa.aer.ad, 2 PUFF INH Q4H PRN for SHORTNESS OF BREATH, (Reported) Alprazolam 0.25 Mg Tablet, 0.25 MG PO BID PRN for ANXIETY, (Reported) Aspirin 81 Mg Tablet.dr, 81 MG PO HS, (Reported) Atorvastatin Calcium 20 Mg Tablet, 20 MG PO BID, (Reported) Cyclobenzaprine HCl 10 Mg Tablet, 10 MG PO TID PRN for MUSCLE SPASMS, (Reported) Cyclosporine 1 Each Droperette, 1 DROP OU BID, (Reported) D-Methorphan Hb/Prometh HCl 118 Ml Syrup, 5 ML PO Q4H PRN for COUGH, (Reported) Fenofibrate,Micronized 134 Mg Capsule, 134 MG PO HS, (Reported) Hydrocodone/Acetaminophen 1 Each Tablet, 1-2 EACH PO Q6H PRN for PAIN, #20 Prescribed by: MARY AYON on 01/29/17 1844 Ibuprofen 800 Mg Tablet, 800 MG PO Q8H PRN for PAIN-MILD, (Reported) Lansoprazole 30 Mg Capsule.dr, 30 MG PO HS, (Reported) Latanoprost 2.5 Ml Drops, 1 DROP OU HS, (Reported) Levofloxacin 500 Mg Tablet, 500 MG PO DAILY, #5 Prescribed by: MARY AYON on 01/29/17 184 Metoprolol Tartrate 25 Mg Tablet, 12.5 MG PO BID, (Reported) TAKES 1/2 OF A (25 MG) TABLET Metronidazole 500 Mg Tablet, 500 MG PO TID, #15 Prescribed by: MARY AYON on 01/29/171841 Nitroglycerin 0.4 Mg Tab.subl, 0.4 MG SL UD PRN for CHEST PAIN, (Reported) Ondansetron HCl 4 Mg Tablet, 4 MG PO Q6H PRN for NAUSEA/VOMITING-1ST LINE, ( Reported) Prednisone 10 Mg Tab, 10 MG PO HS, (Reported) Rivaroxaban 1 Each Tab.ds.pk, 1 EACH PO UD, #51 15mg by mouth twice daily x 21 days then 20mg by mouth daily Prescribed by: AXEL MANDUJANO on 01/25/17 0821 Topiramate 50 Mg Tablet, 25 MG PO BID, (Reported) TAKES 1/2 (50MG) TABLET Venlafaxine HCl 75 Mg Cap.er.24h, 75 MG PO HS, (Reported) Constitutional: no symptoms reported EENTM: no symptoms reported Respiratory: see HPI Cardiovascular: see HPI Gastrointestinal: see HPI Genitourinary: no symptoms reported Musculoskeletal: no symptoms reported Skin: no symptoms reported Psychiatric/Neurological: No Symptoms Reported Hematologic/Lymphatic: No Symptoms Reported Immunological/Allergic: no symptoms reported Past Pbxkxai-Brpuly-Alptto Hx Patient Social History Alcohol Use: Denies Use Recreational Drug Use: No (ETOH, THC) Smoking Status: Current Everyday Smoker Type Used: Cigarettes 2nd Hand Smoke Exposure: No Recent Foreign Travel: No Contact w/Someone Who Travel: No Recent Infectious Disease Expo: No Recent Hopitalizations: Yes (03/19/16 LITHOTRIPSY) Immunizations Up To Date Tetanus Booster (TDap): More than 5yrs PED Vaccines UTD: No Date of Pneumonia Vaccine: May 01, 2015 Date of Influenza Vaccine: Jan 01, 2017 Seasonal Allergies Seasonal Allergies: Yes Surgeries History of Surgeries: Yes Surgeries: Abdominal, Appendectomy, Bowel Surgery, Breast, Cardiac, Coronary Stent, Gallbladder, Hysterectomy, Oophorectomy, Renal Respiratory History of Respiratory Disorde: Yes (RESPIRATORY FAILURE ON VENT X 1 ) Respiratory Disorders: Asthma, Pneumonia, Chronic Bronchitis, Pulmonary Embolism, COPD Currently Using CPAP: No Currently Using BIPAP: No Cardiovascular History of Cardiac Disorders: Yes (STENT PLACED OCTOBER 2014 AFTER VT) Cardiac Disorders: Coronary Artery Disease, Heart Attack, High Cholesterol, Hypertension Neurological History of Neurological Disord: Yes Neurological Disorders: Seizure Disorder 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 System Hx 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 Disorders: Yes (CERVICAL DYSPLASIA--S/P HYST/BSO) Sexually Transmitted Disease: No HIV/AIDS: No 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 Disorders: Denies INWEAVER History: Hysterectomy Genitourinary History of Genitourinary Disor: Yes Genitourinary Disorders: Bladder Infection, Kidney Stones, Renal Failure Gastrointestinal History of Gastrointestinal Di: Yes Gastrointestinal Disorders: Gastroesophageal Reflux, Diverticulosis, Irritable Bowel Musculoskeletal History of Musculoskeletal Dis: Yes Musculoskeletal Disorders: Arthritis, Fibromyalgia, Rheumatoid Arthritis Endocrine History of Endocrine Disorders: No HEENT History of HEENT Disorders: Yes HEENT Disorders: Glaucoma Loss of Vision: Denies Hearing Impairment: Denies Cancer History of Cancer: No Psychosocial History of Psychiatric Problem: Yes Behavioral Health Disorders: Anxiety, Bipolar, Depression Integumentary History of Skin or Integumenta: Yes (SHINGLES) Blood Transfusions History of Blood Disorders: No Adverse Reaction to a Blood Tr: No Family Medical History Significant Family History: Cancer, Other Conditions/Hx Family Medial History: CANCER 19 MOTHER (PATIENT DOES NOT KNOW LOCATION) Physical Exam Vital Signs Vital Sign - Last 12Hours 01/29/17 01/29/17 16:17 18:58 Temp 96.6 Pulse 120 Resp 18 B/P (MAP) 143/77 Pulse Ox 98 O2 Delivery Room Air Capillary Refill : Less Than 3 Seconds General Appearance: WD/WN, Mild Distress HEENT: PERRL/EOMI, Normal ENT Inspection Neck: Normal Inspection Respiratory: Lungs Clear, Normal Breath Sounds, No Accessory Muscle Use, No Respiratory Distress, Other (left lower lateral chest wall tender to palpation) Cardiovascular: No Edema, Normal Peripheral Pulses, Tachycardia Gastrointestinal: Normal Bowel Sounds, Soft, Tenderness (subtle scattered tenderness in the abdomen. No specific focal tenderness) Extremity: Normal Inspection, No Pedal Edema Neurologic/Psychiatric: Alert, Oriented x3, No Motor/Sensory Deficits, Normal Mood/Affect, case reviewer II-XII Norm as Tested Skin: Normal Color, Warm/Dry Date of ETT Placement: Feb 11, 2016 Time of ETT Placement: 1341 Progress/Results/Core Measures Results/Orders Lab Results Laboratory Tests Test 01/29/17 17:22 01/29/17 18:11 Range/Units White Blood Count 21.3 H 4.3-11.0 10^3/uL Red Blood Count 4.81 4.35-5.85 10^6/uL Hemoglobin 13.9 11.5-16.0 G/DL Hematocrit 42 35-52 % Mean Corpuscular Volume 87 80-99 FL Mean Corpuscular Hemoglobin 29 25-34 PG Mean Corpuscular Hemoglobin Concent 33 32-36 G/DL Red Cell Distribution Width 14.4 10.0-14.5 % Platelet Count 449 H 130-400 10^3/uL Mean Platelet Volume 10.1 7.4-10.4 FL Neutrophils (%) (Auto) 72 42-75 % Lymphocytes (%) (Auto) 18 12-44 % Monocytes (%) (Auto) 9 0-12 % Eosinophils (%) (Auto) 1 0-10 % Basophils (%) (Auto) 1 0-10 % Neutrophils # (Auto) 15.3 H 1.8-7.8 X 10^3 Lymphocytes # (Auto) 3.9 1.0-4.0 X 10^3 Monocytes # (Auto) 1.9 H 0.0-1.0 X 10^3 Eosinophils # (Auto) 0.1 0.0-0.3 10^3/uL Basophils # (Auto) 0.1 0.0-0.1 10^3/uL Neutrophils % (Manual) 71 % Lymphocytes % (Manual) 20 % Monocytes % (Manual) 8 % Eosinophils % (Manual) 0 % Basophils % (Manual) 0 % Band Neutrophils 1 % Blood Morphology Comment NORMAL Sodium Level 139 135-145 MMOL/L Potassium Level 3.5 L 3.6-5.0 MMOL/L Chloride Level 107 98-107 MMOL/L Carbon Dioxide Level 19 L 21-32 MMOL/L Anion Gap 13 5-14 MMOL/L Blood Urea Nitrogen 17 7-18 MG/DL Creatinine 1.16 0.60-1.30 MG/DL Estimat Glomerular Filtration Rate 48 BUN/Creatinine Ratio 15 Glucose Level 101 70-105 MG/DL Calcium Level 9.4 8.5-10.1 MG/DL Total Bilirubin 0.3 0.1-1.0 MG/DL Aspartate Amino Transf (AST/SGOT) 20 5-34 U/L Alanine Aminotransferase (ALT/SGPT) 23 0-55 U/L Alkaline Phosphatase 102 40-136 U/L Troponin I < 0.30 <0.30 NG/ML C-Reactive Protein High Sensitivity 1.12 H 0.00-0.50 MG/DL Total Protein 6.9 6.4-8.2 GM/DL Albumin 3.8 3.2-4.5 GM/DL Lipase 48 8-78 U/L Urine Color YELLOW Urine Clarity SLIGHTLY CLOUDY Urine pH 6 5-9 Urine Specific Osprey 1.015 L 1.016-1.022 Urine Protein NEGATIVE NEGATIVE Urine Glucose (UA) NEGATIVE NEGATIVE Urine Ketones NEGATIVE NEGATIVE Urine Nitrite NEGATIVE NEGATIVE Urine Bilirubin NEGATIVE NEGATIVE Urine Urobilinogen NORMAL NORMAL MG/DL Urine Leukocyte Esterase NEGATIVE NEGATIVE Urine RBC (Auto) 3+ H NEGATIVE Urine RBC 10-25 H /HPF Urine WBC NONE /HPF Urine Squamous Epithelial Cells 0-2 /HPF Urine Crystals NONE /LPF Urine Bacteria NONE /HPF Urine Casts NONE /LPF Urine Mucus NEGATIVE /LPF Urine Culture Indicated NO My Orders Orders - MARY GIRALDO MD Cbc With Automated Diff (01/29/17 17:00) Comprehensive Metabolic Panel (01/29/17 17:00) Lipase (01/29/17 17:00) Ua Culture If Indicated (01/29/17 17:00) Saline Lock/Iv-Start (01/29/17 17:00) Monitor-Rhythm Ecg Trace Only (01/29/17 17:00) Chest Pa/Lat (2 View) (01/29/17 17:00) Ribs, Left 2-3 Views (01/29/17 17:00) Fentanyl Injection (Sublimaze Injection (01/29/17 17:00) Ns Iv 1000 Ml (Sodium Chloride 0.9%) (01/29/17 17:00) Hs C Reactive Protein (01/29/17 17:04) Troponin I (01/29/17 17:04) Ekg Tracing (01/29/17 17:04) Manual Differential (01/29/17 17:22) Hydrocodone/Apap 5/325 Tablet (Lortab 5 (01/29/17 18:45) Medications Given in ED Current Medications Medications Dose Ordered Sig/Jamie Route Start Time Stop Time Status Last Admin Dose Admin Acetaminophen/ Hydrocodone Bitart 1 tab ONCE ONCE PO 01/29/17 18:45 01/29/17 18:46 DC 01/29/17 18:41 1 TAB Fentanyl Citrate 50 mcg ONCE ONCE IVP 01/29/17 17:00 01/29/17 17:02 DC 01/29/17 17:29 50 MCG Sodium Chloride 1,000 ml @ 0 mls/hr Q0M ONCE IV 01/29/17 17:00 01/29/17 17:03 DC 01/29/17 17:29 1,000 MLS/HR Vital Signs/I&O Vital Sign - Last 12Hours 01/29/17 01/29/17 16:17 18:58 Temp 96.6 Pulse 120 95 Resp 18 18 B/P (MAP) 143/77 Pulse Ox 98 O2 Delivery Room Air Room Air Intake and Output 01/30/17 00:00 Intake Total 1000 ml Balance 1000 ml Blood Pressure Mean: 99 Progress Note #1: Time: 18:11 Progress Note Patient is receiving IV fluids. Heart rate seems to be responding and is now around 100. Patient was given fentanyl for pain. Chest x-rays were reviewed by me and reports are pending. There are no obvious abnormalities on the x- rays. Leukocytosis was noted which may be related to recent steroid use although the patient states it has been several days since she completed her steroids. So far no source of infection has been found and CRP is low. Patient is providing a urine specimen. Progress Note #2: Progress Note Chest and rib x-rays showed possible fourth and fifth posterior rib fractures on the left. No source of infection was identified. Patient was found to have hematuria which she is aware of. She was advised to follow-up with Dr. Correa for further monitoring of hematuria. Because of the significant leukocytosis, cough, and vague abdominal pain with history of diverticulitis in the past, antibiotic therapy was felt appropriate. I discussed avoiding further CT imaging in these circumstances as patient has received numerous CT scans in the past and I would like to minimize further radiation exposure. Patient is agreeable to this course of treatment. A hydrocodone was given prior to dismissal. Prescriptions for Flagyl and Levaquin were provided. This combination should cover both pulmonary and intra-abdominal infection. Antibiotic therapy should also help prevent development of pneumonia in the context of her fractures. ECG Initial ECG Impression Date: Jan 29, 2017 Initial ECG Impression Time: 17:31 Initial ECG Rate: 97 Initial ECG Rhythm: S.Tach Comment Sinus tachycardia with no ST elevation or depression. No abnormal intervals or axis deviation. Diagnostic Imaging Diagonstic Imaging: Xray Plain Films/CT/US/NM/MRI: chest Comments Chest x-ray viewed by me and report reviewed. See report below: NAME: [facility]IGH [facility] REC#: [id number] PT STATUS: REG ER : 1960 PHYSICIAN: MARY GIRALDO MD ADMIT DATE: 01/29/17/ER Draft Date of Exam:01/29/17 CHEST PA/LAT (2 VIEW) INDICATION: Cough and congestion with left rib pain. COMPARISON: 01/25/2017. FINDINGS: PA and lateral views show the lungs to be well aerated. No infiltrates have developed. There is hyperaeration with flattening of the diaphragms bilaterally. There are chronic interstitial changes again noted. There is deformity of the left posterior fifth rib now. There may also be deformity of the left posterior fourth rib. There is no pneumothorax or pleural effusion. IMPRESSION: 1. New changes consistent with rib fractures posteriorly in the left fourth and fifth ribs. Dedicated rib films will be reviewed. 2. Obstructive interstitial lung disease with no acute infiltrates. Dictated on workstation # [id number] Dict: 01/29/17 180 Trans: 01/29/17 181 [id number] Interpreted by: DIGNA ROBLES MD Diagonstic Imaging: Xray Plain Films/CT/US/NM/MRI: other (left rib x-rays) Comments Left rib x-ray viewed by me and report reviewed. See report below: NAME: LEIGH [facility] REC#: [id number] PT STATUS: REG ER : 1960 PHYSICIAN: MARY GIRALDO MD ADMIT DATE: 01/29/17/ER Draft Date of Exam:01/29/17 RIBS, LEFT 2-3 VIEWS INDICATION: New onset of left rib pain. FINDINGS: There is irregularity along the posterior left fifth rib. There also is question of a possible nondisplaced fracture just superior to this in the posterior fourth rib. Remaining ribs otherwise appear normal. IMPRESSION: 1. Mildly displaced left posterior fifth rib. 2. Question of nondisplaced left posterior fourth rib. No pneumothorax or pleural effusion. Dictated on workstation # [id number] Dict: 01/29/171805 Trans: 01/29/171811 [facility] [phone] Interpreted by: DIGNA ROBLES MD Departure Impression Impression: Primary Impression: Rib fractures Qualified Codes: S22.42XA - Multiple fractures of ribs, left side, initial encounter for closed fracture Additional Impressions: Leukocytosis Qualified Codes: D72.829 - Elevated white blood cell count, unspecified Cough Hematuria Qualified Codes: R31.9 - Hematuria, unspecified Hypovolemia Generalized abdominal discomfort Disposition: HOME, SELF-CARE Condition: Improved Departure-Patient Inst. Decision time for Depature: 18:30 Referrals: ADRIANNA HAND MD (PCP/Family) Primary Care Physician Patient Instructions: Blood in the Urine (Hematuria) in Adults, Rib Fracture ( DC) Add. Discharge Instructions: Drink plenty of clear liquids. Continue with your current medications as previously prescribed. Exercise deep breathing with at least 10 times per hour while awake. Follow-up with your primary care provider as soon as possible. Return to the ER if symptoms worsen. Follow-up with Dr. Madeline as soon as possible regarding the blood in your urine. Complete your antibiotics as prescribed. All discharge instructions reviewed with patient and/or family. Voiced understanding. Scripts Hydrocodone/Acetaminophen (Hydrocodon -Acetaminophen 5-325) 1 Each Tablet 1-2 EACH PO Q6H Y for PAIN, #20 TAB Prov: MARY GIRALDO MD 01/29/17 Metronidazole (Flagyl) 500 Mg Tablet 500 MG PO TID, #15 TAB Prov: MARY GIRALDO MD 01/29/17 Levofloxacin (Levaquin) 500 Mg Tablet 500 MG PO DAILY, #5 TAB Prov: MARY GIRALDO MD 01/29/17 Copy Copies To 1: ADRIANNA HAND MD Copies To 2: AKBAR DOBBINS MD, JOSHUA T MD Jan 29, 2017 18:22
[2017-01-29 18:26] LABS: SQUAMOUS EPITHELIAL CELL,UR 0-2 /HPF
[2017-01-29] MEDS ORDERED: METR500T PO ×2 (18:39→18:42)
[2017-01-29] MEDS ORDERED: LEVO500T2 PO ×2 (18:39→18:42)
[2017-01-29] MEDS ORDERED: HYDR-3812 PO (18:44)
[2017-01-29] MEDS ORDERED: HYDROcodone/APAP 5 MG/325 MG (LORTAB) TAB PO ONE (18:45)
[2017-01-29 18:58] VITALS: BP 127/65
== END 2017-01-29 19:01 | disposition home or self-care (01) ==
LOC: EDUNIT# 16:04 → ER 16:06
DX: S22.32XA Fracture of one rib, left side, initial encounter for closed fracture (principal); D72.819 Decreased white blood cell count, unspecified; R05 Cough; R31.9 Hematuria, unspecified; E86.1 Hypovolemia; G40.909 Epilepsy, unspecified, not intractable, without status epilepticus; R10.84 Generalized abdominal pain; F31.9 Bipolar disorder, unspecified; F41.9 Anxiety disorder, unspecified; M06.9 Rheumatoid arthritis, unspecified; K21.9 Gastro-esophageal reflux disease without esophagitis; I25.10 Atherosclerotic heart disease of native coronary artery without angina pectoris; I25.2 Old myocardial infarction; I10 Essential (primary) hypertension; E78.00 Pure hypercholesterolemia, unspecified; J44.9 Chronic obstructive pulmonary disease, unspecified; Z87.442 Personal history of urinary calculi; Z90.710 Acquired absence of both cervix and uterus; Z86.711 Personal history of pulmonary embolism; Z79.01 Long term (current) use of anticoagulants; Z90.49 Acquired absence of other specified parts of digestive tract; Z87.09 Personal history of other diseases of the respiratory system; Z80.9 Family history of malignant neoplasm, unspecified; X58.XXXA Exposure to other specified factors, initial encounter
CPT/HCPCS: 36415; 71020; 71100; 80053; 81000; 83690; 84484; 85007; 85027; 86141; 93005; 93041

== ENCOUNTER 2017-03-07 12:21 | Outpatient (RCR) | payer MEDICARE, MEDICAID ==
[2017-02-07 15:57] LABS: ABSOLUTE RETIC # 73 10e9/L (24-90); BASOPHILS # (AUTO) 0.1 10^3/uL (0.0-0.1); BASOPHILS % (AUTO) 1 % (0-10); EOSINOPHILS # (AUTO) 0.2 10^3/uL (0.0-0.3); EOSINOPHILS % (AUTO) 1 % (0-10); HEMATOCRIT 44 % (35-52); HEMOGLOBIN 14.5 G/DL (11.5-16.0); LYMPHOCYTES # (AUTO) 3.1 X 10^3 (1.0-4.0); LYMPHOCYTES % (AUTO) 20 % (12-44); MEAN CORPUSCULAR HEMOGLOBIN 29 PG (25-34); MEAN CORPUSCULAR HGB CONC 33 G/DL (32-36); MEAN CORPUSCULAR VOLUME 86 FL (80-99); MEAN PLATELET VOLUME 10.1 FL (7.4-10.4); MONOCYTES # (AUTO) 1.4 X 10^3 (0.0-1.0); MONOCYTES % (AUTO) 9 % (0-12); NEUTROPHILS # (AUTO) 11.1 X 10^3 (1.8-7.8); NEUTROPHILS % (AUTO) 70 % (42-75); PLATELET COUNT 470 10^3/uL (130-400); RED BLOOD COUNT 5.04 10^6/uL (4.35-5.85); RED CELL DISTRIBUTION WIDTH 14.6 % (10.0-14.5); RETICULOCYTE % 1.45 % (0.50-2.40); WHITE BLOOD COUNT 15.8 10^3/uL (4.3-11.0)
[2017-02-07 16:21] LABS: BAND NEUTROPHILS 2 %; BASOPHILS % (MANUAL) 1 %; EOSINOPHILS % (MANUAL) 1 %; LYMPHOCYTES % (MANUAL) 26 %; MONOCYTES % (MANUAL) 5 %; NEUTROPHILS % (MANUAL) 65 %; RBC MORPH NORMAL
[2017-02-07 16:25] LABS: ALBUMIN 3.9 GM/DL (3.2-4.5); BILIRUBIN,TOTAL 0.3 MG/DL (0.1-1.0); CALCIUM 9.9 MG/DL (8.5-10.1); CREATININE SERUM 1.05 MG/DL (0.60-1.30); POTASSIUM 3.5 MMOL/L (3.6-5.0); TOTAL PROTEIN 7.4 GM/DL (6.4-8.2); URIC ACID 5.5 MG/DL (2.6-7.2)
[~2017-03-07 12:21] MED LIST changes: +ACHD5005 PO; +LEVO500T2 PO; +METR500T PO
[2017-03-07 13:02] LABS: BASOPHILS % (AUTO) 0 % (0-10); EOSINOPHILS % (AUTO) 0 % (0-10); HEMATOCRIT 42 % (35-52); HEMOGLOBIN 13.9 G/DL (11.5-16.0); LYMPHOCYTES # (AUTO) 2.6 X 10^3 (1.0-4.0); LYMPHOCYTES % (AUTO) 18 % (12-44); MEAN CORPUSCULAR HEMOGLOBIN 29 PG (25-34); MEAN CORPUSCULAR HGB CONC 33 G/DL (32-36); MEAN CORPUSCULAR VOLUME 87 FL (80-99); MONOCYTES # (AUTO) 0.9 X 10^3 (0.0-1.0); MONOCYTES % (AUTO) 6 % (0-12); NEUTROPHILS % (AUTO) 76 % (42-75); PLATELET COUNT 498 10^3/uL (130-400); RED BLOOD COUNT 4.88 10^6/uL (4.35-5.85); WHITE BLOOD COUNT 14.6 10^3/uL (4.3-11.0)
[2017-03-07 13:26] LABS: ALBUMIN 3.8 GM/DL (3.2-4.5); BILIRUBIN,TOTAL 0.4 MG/DL (0.1-1.0); CALCIUM 9.5 MG/DL (8.5-10.1); CREATININE SERUM 1.03 MG/DL (0.60-1.30); POTASSIUM 4.2 MMOL/L (3.6-5.0); TOTAL PROTEIN 7.4 GM/DL (6.4-8.2)
[2017-04-28] MEDS ORDERED: AZIT250T12 PO (15:46)
[2017-04-28] MEDS ORDERED: RIVA15TA PO (15:54)
[2017-04-28] MEDS ORDERED: GABA-488 PO (15:54)
[2017-05-04] MEDS ORDERED: CEFD300C3 PO (12:45)
[2017-05-04] MEDS ORDERED: IPRA3AMP INH (12:45)
[2017-05-04] MEDS ORDERED: PRED10TA22 PO (12:45)
[2017-05-04] MEDS ORDERED: ACHD5005 PO (12:45)
[2017-05-06] MEDS ORDERED: PHEN-639 PO (22:25)
[2017-05-06] MEDS ORDERED: CEFD300C3 PO (22:25)
[2017-05-06] MEDS ORDERED: NYST1000 PO (22:25)
[2017-05-06] MEDS ORDERED: CLIN300C11 PO (22:25)
== END 2017-05-08 | disposition home or self-care (01) ==
LOC: ONC 12:21
PROVIDERS: ATTEND Internal Medicine Hematology & Oncology
DX: D72.829 Elevated white blood cell count, unspecified (principal); D47.3 Essential (hemorrhagic) thrombocythemia; I26.99 Other pulmonary embolism without acute cor pulmonale; F17.210 Nicotine dependence, cigarettes, uncomplicated; M79.7 Fibromyalgia; M06.9 Rheumatoid arthritis, unspecified; F41.9 Anxiety disorder, unspecified; I12.9 Hypertensive chronic kidney disease with stage 1 through stage 4 chronic kidney disease, or unspecified chronic kidney disease; N18.9 Chronic kidney disease, unspecified; E78.5 Hyperlipidemia, unspecified; I25.10 Atherosclerotic heart disease of native coronary artery without angina pectoris; R07.9 Chest pain, unspecified; L98.9 Disorder of the skin and subcutaneous tissue, unspecified; R23.2 Flushing; Z87.440 Personal history of urinary (tract) infections; Z87.01 Personal history of pneumonia (recurrent); Z79.899 Other long term (current) drug therapy; Z79.52 Long term (current) use of systemic steroids; Z79.82 Long term (current) use of aspirin
CPT/HCPCS: 36415; 80053; 81206; 81270; 82668; 83615; 84550; 85007; 85025; 85027; 85045; 88184; 88185; 99213; 99214

== ENCOUNTER 2017-04-28 08:51 | Inpatient (IN) | payer MEDICARE, MEDICAID ==
[~2017-04-28] VITALS: Ht 157.5 cm; Wt 81.2 kg
--- NOTE | 2017-04-28 11:43 | ED Cough/URI ---
General Chief Complaint: Cough/Cold/Flu Symptoms Stated Complaint: N/V/D/FEVER Nursing Triage Note: c/o cough/congestion/vomiting/diarrhea/fever. Noticed symptoms . Went to a urgent care on Friday and was prescribed Z-pack and Albuterol. Reports no improvement of symptoms. Source: patient Exam Limitations: no limitations History of Present Illness Date Seen by Provider: Apr 28, 2017 Time Seen by Provider: 11:41 Initial Comments To ER with productive cough, difficulty breathing, nausea vomiting diarrhea fever and body aches. This began 5 days ago when she was seen at [facility]. She was given a Z-Bertram which she has taken without improvement. Continues to have all of the aforementioned symptoms. She does take daily prednisone and on she was given a shot of steroids. Timing/Duration: week Severity/Quality: productive cough Associated Symptoms: cough, fever/chills, muscle aches Allergies and Home Medications Allergies Coded Allergies: sulfamethoxazole (Verified Allergy, Intermediate, VOMITTING/MIGRAINE, ) trimethoprim (Verified Allergy, Intermediate, VOMITTING/MIGRAINE, 03/14/16 ) codeine (Unverified Allergy, Mild, TAKES HYDROCODONE AT HOME, 07/04/14) pentazocine (Unverified Adverse Reaction, Mild, N/V, HEAD ACHE, 07/04/14) Home Medications Acetaminophen 500 Mg Tablet, 1,000 MG PO Q6H PRN for PAIN-MILD, (Reported) Albuterol Sulfate 18 Gm Hfa.aer.ad, 2 PUFF INH Q4H PRN for SHORTNESS OF BREATH, (Reported) Alprazolam 0.25 Mg Tablet, 0.25 MG PO BID PRN for ANXIETY, (Reported) Aspirin 81 Mg Tablet.dr, 81 MG PO HS, (Reported) Atorvastatin Calcium 20 Mg Tablet, 20 MG PO BID, (Reported) Cyclobenzaprine HCl 10 Mg Tablet, 10 MG PO TID PRN for MUSCLE SPASMS, (Reported) Cyclosporine 1 Each Droperette, 1 DROP OU BID, (Reported) D-Methorphan Hb/Prometh HCl 118 Ml Syrup, 5 ML PO Q4H PRN for COUGH, (Reported) Fenofibrate,Micronized 134 Mg Capsule, 134 MG PO HS, (Reported) Hydrocodone Bit/Acetaminophen 1 Each Tablet, 1-2 EACH PO Q6H PRN for PAIN, #20 Prescribed by: MARY AYON on 01/29/17 1844 Ibuprofen 800 Mg Tablet, 800 MG PO Q8H PRN for PAIN-MILD, (Reported) Lansoprazole 30 Mg Capsule.dr, 30 MG PO HS, (Reported) Latanoprost 2.5 Ml Drops, 1 DROP OU HS, (Reported) Levofloxacin 500 Mg Tablet, 500 MG PO DAILY, #5 Prescribed by: MARY AYON on 01/29/17 1842 Metoprolol Tartrate 25 Mg Tablet, 12.5 MG PO BID, (Reported) TAKES 1/2 OF A (25 MG) TABLET Metronidazole 500 Mg Tablet, 500 MG PO TID, #15 Prescribed by: MARY AYON on 01/29/171841 Nitroglycerin 0.4 Mg Tab.subl, 0.4 MG SL UD PRN for CHEST PAIN, (Reported) Ondansetron HCl 4 Mg Tablet, 4 MG PO Q6H PRN for NAUSEA/VOMITING-1ST LINE, ( Reported) Prednisone 10 Mg Tab, 10 MG PO HS, (Reported) Rivaroxaban 1 Each Tab.ds.pk, 1 EACH PO UD, #51 15mg by mouth twice daily x 21 days then 20mg by mouth daily Prescribed by: AXEL MANDUJANO on 01/25/17 0821 Topiramate 50 Mg Tablet, 25 MG PO BID, (Reported) TAKES 1/2 (50MG) TABLET Venlafaxine HCl 75 Mg Cap.er.24h, 75 MG PO HS, (Reported) Constitutional: see HPI EENTM: see HPI Respiratory: see HPI, cough Cardiovascular: no symptoms reported Genitourinary: no symptoms reported Musculoskeletal: no symptoms reported Skin: no symptoms reported Psychiatric/Neurological: No Symptoms Reported Hematologic/Lymphatic: No Symptoms Reported Past Dtquzno-Exqzoe-Xsaxnv Hx Patient Social History Alcohol Use: Denies Use Recreational Drug Use: No (ETOH, THC) Smoking Status: Current Everyday Smoker Type Used: Cigarettes 2nd Hand Smoke Exposure: No Recent Foreign Travel: No Contact w/Someone Who Travel: No Recent Infectious Disease Expo: No Recent Hopitalizations: Yes (03/19/16 LITHOTRIPSY) Immunizations Up To Date Tetanus Booster (TDap): More than 5yrs PED Vaccines UTD: No Date of Pneumonia Vaccine: May 01, 2015 Date of Influenza Vaccine: Jan 01, 2017 Seasonal Allergies Seasonal Allergies: Yes Surgeries History of Surgeries: Yes Surgeries: Abdominal, Appendectomy, Bowel Surgery, Breast, Cardiac, Coronary Stent, Gallbladder, Hysterectomy, Oophorectomy, Renal Respiratory History of Respiratory Disorde: Yes (RESPIRATORY FAILURE ON VENT X 1 ) Respiratory Disorders: Asthma, Pneumonia, Chronic Bronchitis, Pulmonary Embolism, COPD Currently Using CPAP: No Currently Using BIPAP: No Cardiovascular History of Cardiac Disorders: Yes (STENT PLACED OCTOBER 2014 AFTER [place]) Cardiac Disorders: Coronary Artery Disease, Heart Attack, High Cholesterol, Hypertension Neurological History of Neurological Disord: Yes Neurological Disorders: Seizure Disorder 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 System Hx 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 Disorders: Yes (CERVICAL DYSPLASIA--S/P HYST/BSO) Sexually Transmitted Disease: No HIV/AIDS: No 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 Genitourinary History of Genitourinary Disor: Yes Genitourinary Disorders: Bladder Infection, Kidney Stones, Renal Failure Gastrointestinal History of Gastrointestinal Di: Yes Gastrointestinal Disorders: Gastroesophageal Reflux, Diverticulosis, Irritable Bowel Musculoskeletal History of Musculoskeletal Dis: Yes Musculoskeletal Disorders: Arthritis, Fibromyalgia, Rheumatoid Arthritis Endocrine History of Endocrine Disorders: No HEENT History of HEENT Disorders: Yes HEENT Disorders: Glaucoma Loss of Vision: Denies Hearing Impairment: Denies Cancer History of Cancer: No Psychosocial History of Psychiatric Problem: Yes Behavioral Health Disorders: Anxiety, Bipolar, Depression Integumentary History of Skin or Integumenta: Yes (SHINGLES) Blood Transfusions History of Blood Disorders: No Adverse Reaction to a Blood Tr: No Family Medical History Significant Family History: Cancer, Other Conditions/Hx Family Medial History: CANCER 19 MOTHER (PATIENT DOES NOT KNOW LOCATION) Physical Exam Vital Signs Vital Sign - Last 12Hours 04/28/17 10:12 Temp 98.9 Pulse 105 Resp 22 B/P (MAP) 145/93 (110) Pulse Ox 95 O2 Delivery Room Air Capillary Refill : Less Than 3 Seconds General Appearance: WD/WN, no apparent distress Eyes: Bilateral Eye Normal Inspection, Bilateral Eye PERRL, Bilateral Eye EOMI HEENT: PERRL/EOMI, normal ENT inspection, TMs normal Neck: non-tender, full range of motion Respiratory: no respiratory distress, no accessory muscle use, rhonchi Cardiovascular: regular rate, rhythm, no murmur Gastrointestinal: normal bowel sounds, non tender, soft Extremities: normal range of motion, non-tender, normal inspection Neurologic/Psychiatric: alert, normal mood/affect, oriented x 3 Skin: normal color, warm/dry Focused Exam Evaluation Lactate Level Laboratory Tests 04/28/17 12:26: Lactic Acid Level 1.49 Lactic Acid Level Laboratory Tests Test 04/28/17 12:26 Lactic Acid Level 1.49 MMOL/L (0.50-2.00) Date of ETT Placement: Feb 11, 2016 Time of ETT Placement: 1341 Progress/Results/Core Measures Suspected Sepsis Recent Fever Within 48 Hours: Yes Infection Criteria Present: Documented Infection New/Unexplained Altered Menta: Yes Sepsis Screen: Possible Severe Sepsis Risk Sepsis Diagnosis: SIRS Temperature:98.9 Pulse: 105 Respiratory Rate: 22 Laboratory Tests 04/28/17 11:58: White Blood Count 25.8H Blood Pressure 145 /93 Mean: 110 Laboratory Tests 04/28/17 12:26: Lactic Acid Level 1.49 Laboratory Tests 04/28/17 11:58: Creatinine 1.02, Platelet Count 474H, Total Bilirubin 0.4 Results/Orders Lab Results Laboratory Tests Test 04/28/17 11:58 04/28/17 12:26 04/28/17 13:24 Range/Units White Blood Count 25.8 H 4.3-11.0 10^3/uL Red Blood Count 5.51 4.35-5.85 10^6/uL Hemoglobin 15.5 11.5-16.0 G/DL Hematocrit 47 35-52 % Mean Corpuscular Volume 84 80-99 FL Mean Corpuscular Hemoglobin 28 25-34 PG Mean Corpuscular Hemoglobin Concent 33 32-36 G/DL Red Cell Distribution Width 14.8 H 10.0-14.5 % Platelet Count 474 H 130-400 10^3/uL Mean Platelet Volume 9.8 7.4-10.4 FL Neutrophils (%) (Auto) 75 42-75 % Lymphocytes (%) (Auto) 17 12-44 % Monocytes (%) (Auto) 8 0-12 % Eosinophils (%) (Auto) 0 0-10 % Basophils (%) (Auto) 0 0-10 % Neutrophils # (Auto) 19.2 H 1.8-7.8 X 10^3 Lymphocytes # (Auto) 4.4 H 1.0-4.0 X 10^3 Monocytes # (Auto) 2.0 H 0.0-1.0 X 10^3 Eosinophils # (Auto) 0.1 0.0-0.3 10^3/uL Basophils # (Auto) 0.1 0.0-0.1 10^3/uL Neutrophils % (Manual) 64 % Lymphocytes % (Manual) 8 % Monocytes % (Manual) 5 % Eosinophils % (Manual) 0 % Basophils % (Manual) 0 % Band Neutrophils 5 % Reactive Lymphocytes 18 % Blood Morphology Comment NORMAL Sodium Level 138 135-145 MMOL/L Potassium Level 4.1 3.6-5.0 MMOL/L Chloride Level 101 98-107 MMOL/L Carbon Dioxide Level 22 21-32 MMOL/L Anion Gap 15 H 5-14 MMOL/L Blood Urea Nitrogen 15 7-18 MG/DL Creatinine 1.02 0.60-1.30 MG/DL Estimat Glomerular Filtration Rate 56 BUN/Creatinine Ratio 15 Glucose Level 98 70-105 MG/DL Calcium Level 9.9 8.5-10.1 MG/DL Total Bilirubin 0.4 0.1-1.0 MG/DL Aspartate Amino Transf (AST/SGOT) 33 5-34 U/L Alanine Aminotransferase (ALT/SGPT) 44 0-55 U/L Alkaline Phosphatase 131 40-136 U/L Total Protein 8.6 H 6.4-8.2 GM/DL Albumin 4.2 3.2-4.5 GM/DL Lactic Acid Level 1.49 0.50-2.00 MMOL/L Urine Color YELLOW Urine Clarity CLEAR Urine pH 6 5-9 Urine Specific [place] 1.015 L 1.016-1.022 Urine Protein 2+ H NEGATIVE Urine Glucose (UA) NEGATIVE NEGATIVE Urine Ketones NEGATIVE NEGATIVE Urine Nitrite NEGATIVE NEGATIVE Urine Bilirubin NEGATIVE NEGATIVE Urine Urobilinogen NORMAL NORMAL MG/DL Urine Leukocyte Esterase 1+ H NEGATIVE Urine RBC (Auto) 4+ H NEGATIVE Urine RBC 5-10 H /HPF Urine WBC 2-5 /HPF Urine Squamous Epithelial Cells 25-50 H /HPF Urine Crystals NONE /LPF Urine Bacteria TRACE /HPF Urine Casts NONE /LPF Urine Mucus SMALL H /LPF Urine Culture Indicated NO Micro Results Microbiology 04/28/17 Influenza Types A,B Antigen (DESI) - Final, Complete My Orders Orders - YONAS OWUSU CD[employer] Cbc With Automated Diff (04/28/17 11:38) Comprehensive Metabolic Panel (04/28/17 11:38) Ua Culture If Indicated (04/28/17 11:38) Saline Lock/Iv-Start (04/28/17 11:38) Ns Iv 1000 Ml (Sodium Chloride 0.9%) (04/28/17 11:45) Ondansetron Injection (Zofran Injectio (04/28/17 11:45) Ketorolac Injection (Toradol Injection) (04/28/17 11:45) Orphenadrine Injection (Norflex Injectio (04/28/17 11:45) Chest Pa/Lat (2 View) (04/28/17 11:38) Albuterol/Ipra Inhalation Soln (Duoneb I (04/28/17 12:00) Svn Sm Volume Nebulizer Rt-Rfs (04/28/17 11:58) Manual Differential (04/28/17 11:58) Blood Culture (04/28/17 12:15) Lactic Acid Analyzer (04/28/17 12:15) Medications Given in ED Current Medications Medications Dose Ordered Sig/Jamie Route Start Time Stop Time Status Last Admin Dose Admin Albuterol/ Ipratropium 3 ml ONCE ONCE INH 04/28/17 12:00 04/28/17 12:01 DC 04/28/17 12:12 3 ML Ketorolac Tromethamine 30 mg ONCE ONCE IVP 04/28/17 11:45 04/28/17 11:46 DC 04/28/17 12:10 30 MG Ondansetron HCl 8 mg ONCE ONCE IVP 04/28/17 11:45 04/28/17 11:46 DC 04/28/17 12:09 8 MG Orphenadrine Citrate 60 mg ONCE ONCE IV 04/28/17 11:45 04/28/17 11:46 DC 04/28/17 12:10 60 MG Vital Signs/I&O Vital Sign - Last 12Hours 04/28/17 04/28/17 04/28/17 10:12 12:10 12:12 Temp 98.9 98.9 Pulse 105 Resp 22 B/P (MAP) 145/93 (110) Pulse Ox 95 98 O2 Delivery Room Air Room Air Capillary Refill : Less Than 3 Seconds Blood Pressure Mean: 110 Departure Communication (Admissions) Time/Spoke to Admitting Phy: 14:23 Communication Discussed the case with Dr. Gomez. Leukocytosis is likely at least in part due to the steroids but given the illness and failure to improve on outpatient Zithromax and steroids she will be admitted for IV antibiotics Impression Impression: Primary Impression: COPD (chronic obstructive pulmonary disease) Additional Impressions: Pneumonia Leukocytosis Disposition: ADMITTED INPATIENT Condition: Stable Admissions Decision to Admit Reason: Admit from ER (General) Decision to Admit/Date: Apr 28, 2017 Time/Decision to Admit Time: 14:24 Departure-Patient Inst. Referrals: ADRIANNA HAND MD (PCP/Family) Primary Care Physician YONAS OWUSU APRN Apr 28, 2017 11:43
[2017-04-28] MEDS ORDERED: ONDANSETRON 4 MG/2 ML (SDV) Z0FRAN IVP ONE (11:45)
[2017-04-28] MEDS ORDERED: ORPHENADRINE 60 MG/2 ML (NORFLEX) AMP IV ONE (11:45)
[2017-04-28] MEDS ORDERED: NS IV 1000 ML 1,000 ML IV SCH (11:45)
[2017-04-28] MEDS ORDERED: KETOROLAC 30 MG/ML VIAL IVP ONE (11:45)
[2017-04-28] MEDS ORDERED: RT-ALBUTEROL/IPRATROPIUM 3 ML (DUONEB) VIAL INH ONE (12:00)
[2017-04-28 12:09] LABS: BASOPHILS # (AUTO) 0.1 10^3/uL (0.0-0.1); BASOPHILS % (AUTO) 0 % (0-10); EOSINOPHILS # (AUTO) 0.1 10^3/uL (0.0-0.3); EOSINOPHILS % (AUTO) 0 % (0-10); HEMATOCRIT 47 % (35-52); HEMOGLOBIN 15.5 G/DL (11.5-16.0); LYMPHOCYTES # (AUTO) 4.4 X 10^3 (1.0-4.0); LYMPHOCYTES % (AUTO) 17 % (12-44); MEAN CORPUSCULAR HEMOGLOBIN 28 PG (25-34); MEAN CORPUSCULAR HGB CONC 33 G/DL (32-36); MEAN CORPUSCULAR VOLUME 84 FL (80-99); MEAN PLATELET VOLUME 9.8 FL (7.4-10.4); MONOCYTES % (AUTO) 8 % (0-12); NEUTROPHILS # (AUTO) 19.2 X 10^3 (1.8-7.8); NEUTROPHILS % (AUTO) 75 % (42-75); PLATELET COUNT 474 10^3/uL (130-400); RED BLOOD COUNT 5.51 10^6/uL (4.35-5.85); RED CELL DISTRIBUTION WIDTH 14.8 % (10.0-14.5); WHITE BLOOD COUNT 25.8 10^3/uL (4.3-11.0)
[2017-04-28 12:26] LABS: ALBUMIN 4.2 GM/DL (3.2-4.5); BILIRUBIN,TOTAL 0.4 MG/DL (0.1-1.0); CALCIUM 9.9 MG/DL (8.5-10.1); CREATININE SERUM 1.02 MG/DL (0.60-1.30); POTASSIUM 4.1 MMOL/L (3.6-5.0); TOTAL PROTEIN 8.6 GM/DL (6.4-8.2)
[2017-04-28 12:34] LABS: BAND NEUTROPHILS 5 %; BASOPHILS % (MANUAL) 0 %; EOSINOPHILS % (MANUAL) 0 %; LYMPHOCYTES % (MANUAL) 8 %; MONOCYTES % (MANUAL) 5 %; NEUTROPHILS % (MANUAL) 64 %; RBC MORPH NORMAL; REACTIVE LYMPHOCYTES 18 %
--- NOTE | 2017-04-28 13:06 | Diagnostic Imaging Report ---
INDICATION: Cough and shortness of air. TIME OF EXAM: 1:13 PM. COMPARISON: 01/29/2017. FINDINGS: The heart size is stable. The lungs do demonstrate hyperinflation, consistent with COPD. Tiny calcified nodular densities are noted in both lungs, similar to prior exam, likely granulomas. There does appear to be some mild infiltrate in the perihilar regions bilaterally. The lower lung nam are clear. No effusion is seen. IMPRESSION: COPD and findings suggestive of mild perihilar infiltrate bilaterally. No other abnormality is seen. Dictated by: Dictated on workstation # [id number]
[2017-04-28 13:28] LABS: BILIRUBIN,URINE NEGATIVE (NEGATIVE); CLARITY,URINE CLEAR; COLOR,URINE YELLOW; GLUCOSE, URINE (UA) NEGATIVE (NEGATIVE); KETONES,URINE NEGATIVE (NEGATIVE); LEUKOCYTE ESTERASE ,URINE 1+ (NEGATIVE); NITRITE,URINE NEGATIVE (NEGATIVE); PH,URINE 6 (5-9); PROTEIN,URINE 2+ (NEGATIVE); UROBILINOGEN,URINE NORMAL (NORMAL)
[2017-04-28 13:41] LABS: BACTERIA,URINE TRACE /HPF
[2017-04-28 13:42] LABS: SQUAMOUS EPITHELIAL CELL,UR 25-50 /HPF
[2017-04-28] MEDS ORDERED: PIPERACILLIN SODIUM/TAZOBACTAM 4.5 GM in D5W 100 ML IVPB 100 ML IV ONE (14:00)
[2017-04-28 15:10] VITALS: BP 138/65
[2017-04-28] MEDS ORDERED: CATHETER FLUSH 10 ML SYR IV PRN (15:45)
[2017-04-28] MEDS ORDERED: AZIT250T12 PO ×2 (15:46)
[2017-04-28] MEDS ORDERED: GABA-488 PO (15:54)
[2017-04-28] MEDS ORDERED: RIVA15TA PO (15:54)
[2017-04-28] MEDS: methylPREDNISolone 125 MG (Solu-MEDROL) VIAL IV SCH ×2 (15:58→21:08)
[2017-04-28] MEDS: NS IV 1000 ML 1,000 ML IV SCH (15:58)
[2017-04-28 18:10] VITALS: BP 138/65
[2017-04-28] MEDS ORDERED: RT-ALBUTEROL/IPRATROPIUM 3 ML (DUONEB) VIAL INH PRN (18:15)
[2017-04-28] MEDS: RT-ALBUTEROL/IPRATROPIUM 3 ML (DUONEB) VIAL INH SCH (19:45)
[2017-04-28 19:52] VITALS: BP 132/71
[2017-04-28] MEDS ORDERED: ACETAMINOPHEN 325 MG TABLET/CAPLET (TYLENOL) ONE (22:54)
[2017-04-28] MEDS ORDERED: ACETAMINOPHEN 500 MG TAB (TYLENOL) PO PRN ×2 (23:00→23:15)
[2017-04-29] VITALS: BP 126/80
[2017-04-29] MEDS: NS IV 1000 ML 1,000 ML IV SCH ×3 (00:05→18:07)
[2017-04-29 04:15] VITALS: BP 134/87
[2017-04-29] MEDS: methylPREDNISolone 125 MG (Solu-MEDROL) VIAL IV SCH ×3 (05:28→21:21)
[2017-04-29 06:11] LABS: BASOPHILS % (AUTO) 0 % (0-10); EOSINOPHILS % (AUTO) 0 % (0-10); HEMATOCRIT 37 % (35-52); HEMOGLOBIN 12.4 G/DL (11.5-16.0); LYMPHOCYTES # (AUTO) 1.1 X 10^3 (1.0-4.0); LYMPHOCYTES % (AUTO) 7 % (12-44); MEAN CORPUSCULAR HEMOGLOBIN 28 PG (25-34); MEAN CORPUSCULAR HGB CONC 34 G/DL (32-36); MEAN CORPUSCULAR VOLUME 84 FL (80-99); MEAN PLATELET VOLUME 10.3 FL (7.4-10.4); MONOCYTES # (AUTO) 0.4 X 10^3 (0.0-1.0); MONOCYTES % (AUTO) 2 % (0-12); NEUTROPHILS # (AUTO) 15.8 X 10^3 (1.8-7.8); NEUTROPHILS % (AUTO) 91 % (42-75); PLATELET COUNT 350 10^3/uL (130-400); RED BLOOD COUNT 4.36 10^6/uL (4.35-5.85); RED CELL DISTRIBUTION WIDTH 14.3 % (10.0-14.5); WHITE BLOOD COUNT 17.3 10^3/uL (4.3-11.0)
[2017-04-29] MEDS: RT-ALBUTEROL/IPRATROPIUM 3 ML (DUONEB) VIAL INH SCH ×5 (06:49→19:38)
[2017-04-29 08:00] VITALS: BP 123/57
--- NOTE | 2017-04-29 09:52 | History & Physical-Hospitalist ---
HPI History of Present Illness: HPI/Chief Complaint Mrs. Burgos is a 56-year-old white female who noted the onset of cough congestion with chills and fever last . She presented to urgent care and was given a azithromycin with no improvement in her symptoms. She initially had some nausea and diarrhea. As she also reports some left upper quadrant pain and was concerned about abdominal obstruction although is been passing stool that is not been hard. This was due to previous partial small bowel resection in the past per her report were she was told that scar tissue could reform and cause recurrence of symptoms. She became more short of breath last night and presented emergency room for further evaluation. She states that for the past 6 months she has had an elevated white count in the mid 20, 000 range. It is not been felt to be due to underlying malignancy and she has been seeing Dr. Hercules. Upon my arrival she noted the onset of left flank pain similar to previous bouts of nephrolithiasis that is required lithotripsy as well as basketing per her report in the past performed by her local urologist. She appeared to be in mild distress. 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 She states that she usually has microscopic blood in her urine at least for the past several years. She was also diagnosed with a right lower lobe pulmonary embolism in December of this year. She states she receives her also for a month but after that the medication was apparently not refilled she was unsure as to whether or not she was to continue it. Date Seen 04/29/17 Time Seen by Provider: 08:30 Attending Physician Jose Gomez MD PCP Leif Arora MD Referring Physician Date of Admission Apr 28, 2017 at 13:54 Home Medications & Allergies Home Medications Reviewed patient Home Medication Reconciliation Form Allergies Allergies Coded Allergies sulfamethoxazole (Verified Allergy, Intermediate, VOMITTING/MIGRAINE, 03/14/16 ) trimethoprim (Verified Allergy, Intermediate, VOMITTING/MIGRAINE, 03/14/16) codeine (Unverified Allergy, Mild, TAKES HYDROCODONE AT HOME, 07/04/14) pentazocine (Unverified Adverse Reaction, Mild, N/V, HEAD ACHE, 07/04/14) Past Ibiijmy-Uqybax-Ldgsfb Hx Patient Social History Alcohol Use: Denies Use Recreational Drug Use: No Smoking Status: Current Everyday Smoker Type Used: Cigarettes 2nd Hand Smoke Exposure: No Physical Abuse Screen: No Sexual Abuse: No Recent Foreign Travel: No Contact w/other who traveled: No Recent Hopitalizations: Yes (03/19/16 LITHOTRIPSY) Recent Infectious Disease Expo: No Immunizations Up To Date Tetanus Booster (TDap): More than 5yrs Pediatric: No Date of Pneumonia Vaccine: May 01, 2015 Date of Influenza Vaccine: Jan 01, 2017 Seasonal Allergies Seasonal Allergies: Yes Surgeries Yes Abdominal, Appendectomy, Bowel Surgery, Breast, Cardiac, Coronary Stent, Gallbladder, Hysterectomy, Oophorectomy, Renal Respiratory Yes (RESPIRATORY FAILURE ON VENT X 1 ) COPD Currently Using CPAP: No Currently Using BIPAP: No Cardiovascular Yes (STENT PLACED OCTOBER 2014 AFTER [place]) Coronary Artery Disease, Heart Attack, High Cholesterol, Hypertension Neurological Yes Seizure Disorder 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 System Hx 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 Disorders: Yes (CERVICAL DYSPLASIA--S/P HYST/BSO) Sexually Transmitted Disease: No HIV/AIDS: No 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 Genitourinary Yes Bladder Infection, Kidney Stones, Renal Failure Gastrointestinal Yes Gastroesophageal Reflux, Diverticulosis, Irritable Bowel Musculoskeletal Yes Arthritis, Fibromyalgia, Rheumatoid Arthritis Endocrine History of Endocrine Disorders: No HEENT History of HEENT Disorders: Yes HEENT Disorders: Glaucoma Loss of Vision: Denies Hearing Impairment: Denies Cancer No Psychosocial History of Psychiatric Problem: Yes Behavioral Health Disorders: Anxiety, Bipolar, Depression Integumentary History of Skin or Integumenta: Yes (SHINGLES) Blood Transfusions History of Blood Disorders: No Adverse Reaction to a Blood Tr: No Family Medical History Significant Family History: Cancer, Other Conditions/Hx Family Hx: CANCER 19 MOTHER (PATIENT DOES NOT KNOW LOCATION) Review of Systems Constitutional: chills, diaphoresis, fever, weakness Respiratory: No no symptoms reported, No see HPI, cough (Predominantly nonproductive), dyspnea on exertion, No hemoptysis, orthopnea, No phlegm, short of breath, No stridor, wheezing, No other Cardiovascular: no symptoms reported, see HPI, No chest pain, No edema, No Hx of Intervention, No palpitations, No syncope, vascular heart diseas, No other Physical Exam Physical Exam Vital Signs Vital Sign - Last 12Hours 04/28/17 04/28/17 04/28/17 10:12 18:10 19:52 Temp 98.9 Pulse 105 Resp 22 B/P (MAP) 145/93 (110) Pulse Ox 95 O2 Delivery Room Air O2 Flow Rate 2.00 FiO2 21 Capillary Refill : Less Than 3 Seconds General Appearance: Anxious, Chronically ill, Mild Distress HEENT: PERRL/EOMI, Pharynx Normal Neck: Full Range of Motion, Normal Inspection, Non Tender, Supple, Carotid Bruit Respiratory: No Accessory Muscle Use, No Respiratory Distress, Other ( Inspiratory rales noted in both bases with expiratory wheezing throughout) Cardiovascular: Regular Rate, Rhythm, No Edema, No Gallop, No JVD, No Murmur, Normal Peripheral Pulses Gastrointestinal: Normal Bowel Sounds, No Organomegaly, No Pulsatile Mass, Soft , Other (Left upper and left mid quadrant abdominal pain to palpation without rebound or guarding) Extremity: Normal Capillary Refill, Normal Inspection, Normal Range of Motion, Non Tender, No Calf Tenderness, No Pedal Edema Neurologic/Psychiatric: Alert, Oriented x3, No Motor/Sensory Deficits Results Results/Procedures Lab Laboratory Tests 04/28/17 11:58 04/29/17 05:51 Assessment/Plan Admission Diagnosis 1. Atypical pneumonia with Sirs suspect viral etiology patient did receive 1 dose of Zosyn in review of previous culture results could find no history of Pseudomonas and the patient is not aware of any problems Pseudomonas infection. VRE unlikely considering lack of purulent sputum production. UA does not suggest underlying urinary tract infection. We will switch to Rocephin for now. 2. Recurrent flank pain last night with history of kidney stone disease will obtain noncontrast CT abdomen and pelvis for stone search with when necessary hydrocodone for pain management. 3. 3 months out from pulmonary embolism high risk for recurrence with current decreased mobility will resume Xaralto. 4. Reported COPD. 5. History of leukocytosis. 6. Hyperproteinemia we will obtain serum and urine immunoelectrophoresis. Clinical Quality Measures DVT/VTE Risk/Contraindication: Risk Factor Score Per Nursin RFS Level Per Nursing on Admit: 4+=Very High JOSE GUADALUPE SHAH MD Apr 29, 2017 09:52
[2017-04-29] MEDS: cefTRIAXone INJECTION 1,000 MG in NS (IVPB) 50 ML IV SCH (10:58)
[2017-04-29] MEDS: HYDROcodone/APAP 5 MG/325 MG (LORTAB) TAB PO PRN ×3 (10:58→22:25)
[2017-04-29] MEDS: ARTIFICAL TEARS 0.4 ML UNIT DOSE (REFRESH PLUS) OU SCH ×2 (11:44→21:20)
[2017-04-29] MEDS: AZITHROMYCIN INJECTION 500 MG in NS (IVPB) 250 ML IV SCH (11:44)
[2017-04-29 12:00] VITALS: BP 120/59
[2017-04-29 16:00] VITALS: BP 127/89
--- NOTE | 2017-04-29 16:52 | Diagnostic Imaging Report ---
PROCEDURE: CT urinary tract, rule out kidney stone. TECHNIQUE: Multiple contiguous axial images were obtained through the abdomen and pelvis without the use of intravenous contrast. INDICATION: Left-sided abdominal pain. History of renal calculi. FINDINGS: Included portions of the lung bases show multiple small micronodules, right greater than left. A few of these appear to be calcified and are likely on the basis of underlying granulomatous disease. Appearance is stable compared to 03/14/2016. CT ABDOMEN: Since the previous exam, there has been interval removal of right-sided nephrostomy tube. Evaluation of the ureters again demonstrates 4 mm calculus within the expected location of the distal left ureter. This is stable in appearance compared to 03/14/2016. Postcontrast exam dated 07/03/2014 suggested calculus is in fact within the distal left ureter. No other renal or ureter calculi identified on either side. Additionally, there is no hydroureteronephrosis or other evidence of obstruction. No renal mass type lesions are identified on this noncontrast exam. Liver is diffusely hypodense consistent with background of hepatic steatosis. Otherwise, the liver, spleen, pancreas, and adrenal glands have an unremarkable noncontrast CT appearance. Small bowel loops are nondistended. Normal appendix cannot be adequately identified, but there is no pericecal inflammation. There is colonic diverticulosis, but no CT evidence of acute diverticulitis. There is no loculated fluid collection, free fluid, or free air within the abdomen. No abnormal mesenteric or retroperitoneal adenopathy is seen. Thinning of the abdominal wall midline is noted. There is right paracentric fat-containing hernia. [place]ia measures approximately 8 mm in diameter (image 68, series 2). Bony structures show no acute abnormalities. There is mild calcified aortic and arterial atherosclerosis. CT PELVIS: Again, small 4 mm calculus is noted within the distal left ureter. This is chronic when compared to prior exams. Urinary bladder is unopacified. No additional calculi are seen within the urinary bladder. There is no loculated fluid collection, free fluid, nor free air within the pelvis. No abnormal lymph nodes are seen. Bony structures show no acute abnormalities. IMPRESSION: 1. 4 mm calculus is identified within the distal left ureter. This is a chronic finding when compared to prior exams. There is no evidence of obstruction. 2. No other renal or ureteral calculi. 3. Hepatic steatosis. 4. Colonic diverticuli, but no CT evidence of acute diverticulitis. Dictated by: Dictated on workstation # [id number]
[2017-04-29] MEDS: RIVAROXABAN 20 MG TABLET (XARELTO) PO SCH (18:08)
[2017-04-29] MEDS: CYCLOBENZAPRINE 10 MG (FLEXERIL) TAB PO PRN (18:13)
[2017-04-29 20:00] VITALS: BP 123/57
[2017-04-29] MEDS: PANTOPRAZOLE 40 MG (PROTONIX) TAB PO SCH (21:20)
[2017-04-29] MEDS: GABAPENTIN 300 MG (NEURONTIN) CAP PO SCH (21:20)
[2017-04-29] MEDS: ATORVASTATIN 20 MG (LIPITOR) TABLET PO SCH (21:20)
[2017-04-29] MEDS: ASPIRIN E.C. 81 MG (ECOTRIN) TAB PO SCH (21:20)
[2017-04-29] MEDS: VENlafaxine XR 75 MG (EFFEXOR XR) CAP PO SCH (21:20)
[2017-04-30] VITALS: BP 139/60
[2017-04-30] MEDS: NS IV 1000 ML 1,000 ML IV SCH ×4 (01:26→19:41)
[2017-04-30] MEDS: CYCLOBENZAPRINE 10 MG (FLEXERIL) TAB PO PRN ×3 (02:16→22:50)
[2017-04-30] MEDS: HYDROcodone/APAP 5 MG/325 MG (LORTAB) TAB PO PRN ×3 (06:05→20:31)
[2017-04-30] MEDS: methylPREDNISolone 125 MG (Solu-MEDROL) VIAL IV SCH ×3 (06:05→21:04)
[2017-04-30] MEDS: RT-ALBUTEROL/IPRATROPIUM 3 ML (DUONEB) VIAL INH SCH ×4 (07:01→19:28)
[2017-04-30 08:00] VITALS: BP 129/62
[2017-04-30] MEDS: ARTIFICAL TEARS 0.4 ML UNIT DOSE (REFRESH PLUS) OU SCH ×2 (08:21→20:31)
[2017-04-30] MEDS: cefTRIAXone INJECTION 1,000 MG in NS (IVPB) 50 ML IV SCH (08:21)
[2017-04-30] MEDS: AZITHROMYCIN INJECTION 500 MG in NS (IVPB) 250 ML IV SCH (08:24)
--- NOTE | 2017-04-30 08:49 | Progress Note-Hospitalist ---
Subjective HPI/CC On Admission Date Seen by Provider: Apr 30, 2017 Time Seen by Provider: 08:00 Mrs. Burgos is a 56-year-old white female who noted the onset of cough congestion with chills and fever last . She presented to urgent care and was given a azithromycin with no improvement in her symptoms. She initially had some nausea and diarrhea. As she also reports some left upper quadrant pain and was concerned about abdominal obstruction although is been passing stool that is not been hard. This was due to previous partial small bowel resection in the past per her report were she was told that scar tissue could reform and cause recurrence of symptoms. She became more short of breath last night and presented emergency room for further evaluation. She states that for the past 6 months she has had an elevated white count in the mid 20, 000 range. It is not been felt to be due to underlying malignancy and she has been seeing Dr. Hercules. Upon my arrival she noted the onset of left flank pain similar to previous bouts of nephrolithiasis that is required lithotripsy as well as basketing per her report in the past performed by her local urologist. She appeared to be in mild distress. 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 She states that she usually has microscopic blood in her urine at least for the past several years. She was also diagnosed with a right lower lobe pulmonary embolism in December of this year. She states she receives her also for a month but after that the medication was apparently not refilled she was unsure as to whether or not she was to continue it. Objective Exam Vital Signs Vital Sign - Last 12Hours 04/28/17 04/28/17 04/28/17 10:12 18:10 19:52 Temp 98.9 Pulse 105 Resp 22 B/P (MAP) 145/93 (110) Pulse Ox 95 O2 Delivery Room Air O2 Flow Rate 2.00 FiO2 21 Capillary Refill : Less Than 3 Seconds General Appearance: Chronically ill, Mild Distress Respiratory: No Accessory Muscle Use, No Respiratory Distress, Other (diffuse expiratory wheezing with scattered rhonchi noted) Cardiovascular: Regular Rate, Rhythm, No Edema, No Gallop, No JVD, No Murmur, Normal Peripheral Pulses Gastrointestinal: Normal Bowel Sounds, No Organomegaly, No Pulsatile Mass, Non Tender, Soft Extremity: No Pedal Edema Assessment/Plan Assessment and Plan Assess & Plan/Chief Complaint 1. Bibasilar pneumonia suspect viral etiology but continue antibiotics 2. L distal ureterolithiasis continue IVF's and consult Dr. Correa. OK to hold Xaralto for procedure will hold this am. JOSE GUADALUPE SHAH MD Apr 30, 2017 08:49
[2017-04-30] MEDS: ALPRAZolam 0.5 MG (XANAX) TAB PO PRN ×2 (13:16→20:31)
[2017-04-30 15:53] VITALS: BP 150/74
[2017-04-30] MEDS: GABAPENTIN 300 MG (NEURONTIN) CAP PO SCH (20:31)
[2017-04-30] MEDS: PANTOPRAZOLE 40 MG (PROTONIX) TAB PO SCH (20:31)
[2017-04-30] MEDS: VENlafaxine XR 75 MG (EFFEXOR XR) CAP PO SCH (20:31)
[2017-04-30] MEDS: ASPIRIN E.C. 81 MG (ECOTRIN) TAB PO SCH (20:31)
[2017-04-30] MEDS: ATORVASTATIN 20 MG (LIPITOR) TABLET PO SCH (20:31)
--- NOTE | 2017-04-30 20:51 | CONSULTATION REPORT ---
DATE OF SERVICE: 04/30/2017 ATTENDING PHYSICIAN: Dr. Cleary. SUMMARY: After reviewing the patient's record in the office at the hospital, her x-rays and her chart, this is a 56-year-old white lady known to me for history of bilateral stones, previous ESWLs and ureteroscopies. Last seen in my office on 04/10/2016. She had a followup appointment, which she canceled, rescheduled the appointment for her and she canceled it again. She is being admitted at this time to the hospital with bilateral pneumonia and back pain. She has history of PE and DVT. Dr. Cleary has her on the Xarelto, which she held today in case of procedure. The patient is not n.p.o. I reviewed her CAT scan compared with the previous CAT scan and discussed it with the radiologist. She has a 4 mm stone that seems to be in the distal left ureter, probably residual fragment from previous procedure on the left side, has not changed much. No obstruction and I do not think the pain is from it. It is more a back pain than CVA pain. IMPRESSION: 1. Possible left distal ureteral stone, nonobstructing chronic. 2. Bilateral pneumonia. 3. History of pulmonary embolism and deep venous thrombosis. PLAN: Since the stone is asymptomatic, nonobstructing and chronic and since the patient has multiple other problems, we will just observe at this point. We will go ahead and resume her Xarelto. She is not n.p.o. anyway and will follow accordingly. I will see her back in the office in two weeks when she goes through and her problem that she has now, we will talk about that calcification on the left side. This plan was fully explained to the patient. Job ID: [id number] DocumentID: [id number] Dictated Date: 04/30/2017 12:25:43 Machine Cleaner Date: 04/30/2017 19:14:08 Dictated By: EULOGIO JIN MD
[2017-05-01] VITALS: BP 121/67
[2017-05-01] MEDS: NS IV 1000 ML 1,000 ML IV SCH (03:45)
[2017-05-01] MEDS: methylPREDNISolone 125 MG (Solu-MEDROL) VIAL IV SCH ×3 (05:31→20:50)
[2017-05-01] MEDS: RT-ALBUTEROL/IPRATROPIUM 3 ML (DUONEB) VIAL INH SCH ×4 (07:01→19:12)
[2017-05-01 08:00] VITALS: BP 173/80
--- NOTE | 2017-05-01 08:24 | Progress Note-Hospitalist ---
Subjective HPI/CC On Admission Date Seen by Provider: May 01, 2017 Time Seen by Provider: 07:30 Mrs. Burgos is a 56-year-old white female who noted the onset of cough congestion with chills and fever last . She presented to urgent care and was given a azithromycin with no improvement in her symptoms. She initially had some nausea and diarrhea. As she also reports some left upper quadrant pain and was concerned about abdominal obstruction although is been passing stool that is not been hard. This was due to previous partial small bowel resection in the past per her report were she was told that scar tissue could reform and cause recurrence of symptoms. She became more short of breath last night and presented emergency room for further evaluation. She states that for the past 6 months she has had an elevated white count in the mid 20, 000 range. It is not been felt to be due to underlying malignancy and she has been seeing Dr. Hercules. Upon my arrival she noted the onset of left flank pain similar to previous bouts of nephrolithiasis that is required lithotripsy as well as basketing per her report in the past performed by her local urologist. She appeared to be in mild distress. 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 She states that she usually has microscopic blood in her urine at least for the past several years. She was also diagnosed with a right lower lobe pulmonary embolism in December of this year. She states she receives her also for a month but after that the medication was apparently not refilled she was unsure as to whether or not she was to continue it. Subjective/Events-last exam patient still short of breath with minimal activity. Cough probably nonproductive. No chest pain noted. Still having some predominant low back more than flank pain. Patient has been afebrile. Objective Exam Vital Signs Vital Sign - Last 12Hours 04/28/17 04/28/17 04/28/17 10:12 18:10 19:52 Temp 98.9 Pulse 105 Resp 22 B/P (MAP) 145/93 (110) Pulse Ox 95 O2 Delivery Room Air O2 Flow Rate 2.00 FiO2 21 Capillary Refill : Less Than 3 Seconds General Appearance: No Apparent Distress, Obese Respiratory: Other (mildly tachypneic Restoril he rates in the low 20s but not using accessory muscles of respiration. She has diffuse inspiratory rales coarse rhonchi and mild expiratory wheezing throughout) Cardiovascular: Regular Rate, Rhythm, No Edema, No Gallop, No JVD, No Murmur, Normal Peripheral Pulses Gastrointestinal: Normal Bowel Sounds, No Organomegaly, No Pulsatile Mass, Non Tender, Soft Assessment/Plan Assessment and Plan Assess & Plan/Chief Complaint 1. Bibasilar pneumonia suspect viral etiology but continue antibiotics 2. L distal ureterolithiasis no evidence for obstruction per her urology observation for now. reasonable by mouth intake will DC IV fluids. JOSE GUADALUPE SHAH MD May 01, 2017 08:24
[2017-05-01] MEDS: ARTIFICAL TEARS 0.4 ML UNIT DOSE (REFRESH PLUS) OU SCH ×2 (09:07→20:50)
[2017-05-01] MEDS: cefTRIAXone INJECTION 1,000 MG in NS (IVPB) 50 ML IV SCH (09:10)
[2017-05-01] MEDS: AZITHROMYCIN INJECTION 500 MG in NS (IVPB) 250 ML IV SCH (10:01)
[2017-05-01] MEDS: HYDROcodone/APAP 5 MG/325 MG (LORTAB) TAB PO PRN ×2 (11:20→19:53)
[2017-05-01] MEDS: ALPRAZolam 0.5 MG (XANAX) TAB PO PRN ×2 (11:20→20:50)
[2017-05-01] MEDS: NITROGLYCERIN 0.4 MG SL TABS BTL 25'S SL PRN ×2 (11:36→11:50)
[2017-05-01 12:00] VITALS: BP 144/73
--- NOTE | 2017-05-01 13:22 | Consultation-Cardiology ---
HPI-Cardiology Cardiology Consultation: Date of Consultation 05/01/17 Date of Admission Attending Physician Jose Gomez MD Admitting Physician Leif Arora MD Consulting Physician Rosemarie MCCARTHY MD HPI: Time Seen by Provider: 12:45 Chief Complaint: Chest pain This is a 56-year-old lady with extensive past medical and cardiac history. She has leukocytosis of unclear etiology, pulmonary embolism on oral anticoagulation, history of STEMI and PCI. Systolic congestive heart failure with EF of 40 percent on previous echocardiogram. She has been admitted for possible pneumonia and urolithiasis. Cardiology was called for chest discomfort which gradually resolved with nitroglycerin. Review of Systems-Cardiology Review of Systems Constitutional: As described under HPI Eyes: No As described under HPI, No no symptoms reported, No blindness, No blurred vision, No contact lenses, No drainage, No decreased acuity, No foreign body sensation, No glasses, No inflammation, No pain, No photophobia, No previous injury, No shadows, No tunnel vision, No other, No vision change Ears/Nose/Throat: No As described under HPI, No no symptoms reported, No chronic hearing loss, No epistaxis, No ear discharge, No ear pain, No loose teeth, No mouth pain, No mouth swelling, No nasal drainage, No nose pain, No recent hearing loss, No throat pain, No throat swelling, No ulcerations, No other Respiratory: No no symptoms reported, No As described under HPI, No cough, No orthopnea, No shortness of breath, No SOB with excertion, No SOB at rest, No stridor, No wheezing, No other Cardiovascular: No no symptoms reported, No As described under HPI, chest pain , No edema, No irregular heart rate, No lightheadedness, No palpitations, No syncope, No other Gastrointestinal: As described under HPI Genitourinary: As described under HPI Musculoskeletal: No no symptoms reported, No As describe under HPI, No back pain, No gout, No joint pain, No joint swelling, No muscle pain, No muscle stiffness, No neck pain, No other Skin: No no symptoms reported, No As described under HPI, No change in color, No change in hair/nails, No dryness, No lesions, No lumps, No rash, No other, No skin related problems, No ulcerations, No rash on exposed areas, No ulcerations on exposed areas Psychiatric/Neurological: No no symptoms reported, No As described under HPI, No anxiety, No depression, No emotional problems, No headache, No numbness, No pre-existing deficit, No seizure, No tingling, No tremors, No weakness, No other , No focal weakness, No syncope [id number] Hx Patient Social History Alcohol Use: Denies Use Recreational Drug Use: No Smoking Status: Current Everyday Smoker Type Used: Cigarettes 2nd Hand Smoke Exposure: No Recent Foreign Travel: No Recent Infectious Disease Expo: No Physical Abuse Screen: No Sexual Abuse: No Immunizations Up To Date Tetanus Booster (TDap): More than 5yrs Date of Pneumonia Vaccine: May 01, 2015 Date of Influenza Vaccine: Jan 01, 2017 Past Medical History PMH As described under Assessment. Family Medical History Family History: CANCER 19 MOTHER (PATIENT DOES NOT KNOW LOCATION) Allergies and Home Medications Allergies Coded Allergies: sulfamethoxazole (Verified Allergy, Intermediate, VOMITTING/MIGRAINE, ) trimethoprim (Verified Allergy, Intermediate, VOMITTING/MIGRAINE, 03/14/16 ) codeine (Unverified Allergy, Mild, TAKES HYDROCODONE AT HOME, 07/04/14) pentazocine (Unverified Adverse Reaction, Mild, N/V, HEAD ACHE, 07/04/14) Home Medications Acetaminophen 500 Mg Tablet, 1,000 MG PO Q6H PRN for PAIN-MILD, (Reported) Albuterol Sulfate 18 Gm Hfa.aer.ad, 2 PUFF INH Q4H PRN for SHORTNESS OF BREATH, (Reported) Aspirin 81 Mg Tablet.dr, 81 MG PO HS, (Reported) Atorvastatin Calcium 20 Mg Tablet, 20 MG PO HS, (Reported) Azithromycin 250 Mg Tablet, PO UD for 5 Days, (Reported) 5 DAY SUPPLY FILLED 04-24-17 Cyclobenzaprine HCl 10 Mg Tablet, 10 MG PO TID PRN for MUSCLE SPASMS, (Reported) Cyclosporine 1 Each Droperette, 1 DROP OU BID, (Reported) Fenofibrate,Micronized 134 Mg Capsule, 134 MG PO HS, (Reported) Gabapentin 300 Mg Capsule, 300 MG PO HS, (Reported) Ibuprofen 800 Mg Tablet, 800 MG PO Q8H PRN for PAIN-MILD, (Reported) Lansoprazole 30 Mg Capsule.dr, 30 MG PO HS, (Reported) Metoprolol Tartrate 25 Mg Tablet, 12.5 MG PO BID, (Reported) LAST FILLED #90 8-28-17 TAKES 1/2 OF A (25 MG) TABLET Nitroglycerin 0.4 Mg Tab.subl, 0.4 MG SL UD PRN for CHEST PAIN, (Reported) Ondansetron HCl 4 Mg Tablet, 4 MG PO Q6H PRN for NAUSEA/VOMITING-1ST LINE, ( Reported) Prednisone 10 Mg Tab, 10 MG PO HS, (Reported) Rivaroxaban 15 Mg Tablet, 15 MG PO HS, (Reported) Venlafaxine HCl 75 Mg Cap.er.24h, 75 MG PO HS, (Reported) Physical Exam-Cardiology Physical Exam Vital Signs/I&O Vital Sign - Last 12Hours 05/01/17 05/01/17 05/01/17 05/01/17 11:07 12:00 15:38 16:00 Temp 96.7 98.1 Pulse 122 120 Resp 24 20 B/P (MAP) 144/73 (96) 141/69 (93) Pulse Ox 94 96 94 92 O2 Delivery Nasal Cannula Nasal Cannula Nasal Cannula Nasal Cannula O2 Flow Rate 2.00 2.00 2.00 2.00 05/01/17 05/01/17 19:13 19:13 Pulse 116 Pulse Ox 92 92 O2 Delivery Nasal Cannula O2 Flow Rate 2.00 Intake and Output 05/01/17 00:00 Intake Total 1640 ml Balance 1640 ml Capillary Refill : Less Than 3 Seconds Constitutional: No appears stated age, No AAO x 3, No apparent distress, No PERRL, No well-developed, No well-nourished, No other HEENT: No PERRL, No normal ENT inspection, No TMs normal, No pharynx normal, No scleral icterus (R), No scleral icterus (L), No pale conjunctivae (R), No pale conjunctivae (L), No photophobia, No TM abnormal (R), No TM abnormal (L), No pharyngeal erythema, No tonsillar exudate, No other, No discharge, No EOMI, No hearing is well preserved, No hard of hearing, No oral hygience is good, No ulceration, No xanthelasmas are seen Neck: No non-tender, No full range of motion, No supple, No normal inspection, No carotid bruit, No limited range of motion, No lymphadenopathy (R), No lymphadenopathy (L), No tender lateral, No tender midline, No thyromegaly, No other, No carotid pulses are 2 + bilaterally, No with good upstrokes Respiratory: No accessory muscle use, No respiratory distress, No chest tender , No chest expansion is symmetric, No chest is bilaterally symmetric, lungs clear to percussion, lungs clear to auscultation, No crackles, No rhonchi, No rales, No stridor, No wheezing, No pleural rub, No other Cardiovascular: regular rate-rhythm, No irregularly irregular, No extra beats, No parasternal heave is noted, No JVD, No edema, No bradycardia, No tachycardia , No point of maximal impulse, No cardiac thrills are palpable, S1 and S2, No gallop/S3, No gallop/S4, No diastolic murmur, No systolic murmur, No friction rub, No click, No other Gastrointestinal: No tender, No soft, No round, No distended, No pulsatile mass , No organomegaly, No guarding, No rebound, No tenderness, No hernia, No mass, No audible bowel sounds, No abnormal bowel sounds, No abdominal bruits, No spleenomegaly, No other Rectal: deferred Extremities: No normal range of motion, No non-tender, No normal inspection, No pedal edema, No calf tenderness, No normal capillary refill, No pelvis stable , No calf tenderness, No inflammation, No pedal edema, No slow capillary refill , No swelling, No other, No abrasion, No clubbing, No cyanosis, No ecchymosis, No laceration, No no lower extremity edema bilateral, No significant edema, No tenderness, No wound Neurologic/Psychiatric: No travelift operator II-XII nml as tested, No no motor/sensory deficits, No alert, No normal mood/affect, No oriented x 3, No abnormal cerebellar tests, No abnormal travelift operator II-XII, No abnormal gait, No aphasia, No EOM palsy, No facial droop, No motor weakness, No sensory deficit, No depressed affect, No disoriented x 3, No other, No grossly intact, No power is 5/5 both on sides Skin: No normal color, No warm/dry, No cyanosis, No cool, No diaphoresis, No damp, No ecchymosis, No jaundice, No mottled, No pallor, No rash, No tattoos/ piercings, No ulcerations, No rash on exposed areas, No ulcerations on exposed areas, No other Data Review Labs Laboratory Tests 05/01/17 13:40: Troponin I < 0.30 05/01/17 19:23: Troponin I < 0.30 Microbiology 04/28/17 Blood Culture - Preliminary, Resulted No growth 04/28/17 Influenza Types A,B Antigen (DESI) - Final, Complete 04/30/17 Urine Culture - Preliminary, Resulted NO GROWTH ECG Impression ECG Initial ECG Rhythm: Normal Sinus A/P-Cardiology Assessment/Admission Diagnosis Pneumonia, history of urolithiasis, chest pain, History of CAD, PCI, History of pulmonary embolism, Ischemic cardiomyopathy with EF 40 percent. Plan Chest pain, resolved with nitroglycerin. Troponin 2 negative. EKG does not reveal any acute ST-T wave abnormalities. Continue to follow clinically. Coronary artery disease :November 26, 2014 STEMI and cardiac catheterization by Dr. Franklin with angioplasty to the left dominant circumflex artery with 3 x 10 mm angioscope balloon. Drug eluted stenting of the proximal and ostial left circumflex artery. Stents were 4 x 16 mm Promus Premier, 4 x 12 mm Promus Premier. Patient also underwent balloon angioplasty of the ostial LAD. It was dilated with a 38 mm emerge balloonJan2015 cardiac catheterization was done showing patent left main stent extending to the circumflex artery, patient had 40-50 percent ostial LAD stenosis, that is still present at that time. Conservative management is recommended, close monitoring is recommended. March 11, 2016 patient had patent stent in the left main, circumflex, had 40- 50 percent ostial LAD stenosis, did not change compared to the baseline, small nondominant right coronary. Most recent cardiac catheterization done December revealed patent stent in circumflex extending into the left main was small vessel disease of the distal dominant circumflex system. 50 percent ostial LAD stenosis, present previously, no change from baseline. EF 35-40 percent. Congestive heart failure, chronic left ventricular systolic dysfunction, EF 40 percent previous Echocardiogram. Repeat Echocardiogram. Hypertension-controlled. Continue to monitor blood pressure/heart rate. Hyperlipidemia, controlled. Lipid/LFTs due again in December 2016.continue to monitor lipids History of rheumatoid arthritis, maintained on meloxicam and prednisone. History of bipolar disorder History of anxiety and depression Irritable bowel syndrome and history of diverticulitis-patient has history of perforated diverticulum of May 2014 for which she had emergency surgery with resection and colostomy. Colostomy reversed in July 2014. Monitored by Dr. Santoyo and primary care physician. Leukocytosis-persistent. Followed by Dr Hercules. Pulmonary emboli-diagnosed December 2016. Maintained on Xarelto. Thank you for your consultation. Please call me if you have any questions. Alice Mccarthy MD, FACP, FACC, FSCAI, FHRS, CCDS Interventional Cardiology Cardiac Electrophysiology Vascular Medicine and Endovascular Interventions Clinical Quality Measures DVT/VTE Risk/Contraindication: Risk Factor Score Per Nursin RFS Level Per Nursing on Admit: 4+=Very High Rosemarie MCCARTHY MD May 01, 2017 1:22 pm
[2017-05-01] MEDS ORDERED: ACETAMINOPHEN 325 MG TABLET/CAPLET (TYLENOL) PO PRN (13:45)
[2017-05-01 16:00] VITALS: BP 141/69
[2017-05-01] MEDS: RIVAROXABAN 20 MG TABLET (XARELTO) PO SCH ×2 (17:26→17:27)
[2017-05-01] MEDS: ASPIRIN E.C. 81 MG (ECOTRIN) TAB PO SCH (20:49)
[2017-05-01] MEDS: GABAPENTIN 300 MG (NEURONTIN) CAP PO SCH (20:49)
[2017-05-01] MEDS: ATORVASTATIN 20 MG (LIPITOR) TABLET PO SCH (20:49)
[2017-05-01] MEDS: PANTOPRAZOLE 40 MG (PROTONIX) TAB PO SCH (20:49)
[2017-05-01] MEDS: VENlafaxine XR 75 MG (EFFEXOR XR) CAP PO SCH (20:50)
[2017-05-01] MEDS: CYCLOBENZAPRINE 10 MG (FLEXERIL) TAB PO PRN (20:50)
[2017-05-02] VITALS: BP 183/92
[2017-05-02] MEDS: HYDROcodone/APAP 5 MG/325 MG (LORTAB) TAB PO PRN (05:13)
[2017-05-02] MEDS: methylPREDNISolone 125 MG (Solu-MEDROL) VIAL IV SCH (05:13)
[2017-05-02] MEDS: RT-ALBUTEROL/IPRATROPIUM 3 ML (DUONEB) VIAL INH SCH ×2 (06:33→10:38)
[2017-05-02 07:28] VITALS: BP 149/80
[2017-05-02] MEDS: ARTIFICAL TEARS 0.4 ML UNIT DOSE (REFRESH PLUS) OU SCH (09:25)
[2017-05-02] MEDS: cefTRIAXone INJECTION 1,000 MG in NS (IVPB) 50 ML IV SCH (09:26)
[2017-05-02] MEDS: AZITHROMYCIN INJECTION 500 MG in NS (IVPB) 250 ML IV SCH (09:41)
[2017-05-02] MEDS: ALPRAZolam 0.5 MG (XANAX) TAB PO PRN (09:42)
[2017-05-02] MEDS: CYCLOBENZAPRINE 10 MG (FLEXERIL) TAB PO PRN (09:43)
[2017-05-04] MEDS ORDERED: CEFD300C3 PO ×2 (12:45)
[2017-05-04] MEDS ORDERED: ACHD5005 PO ×2 (12:45)
[2017-05-04] MEDS ORDERED: PRED10TA22 PO ×2 (12:45)
[2017-05-04] MEDS ORDERED: IPRA3AMP INH ×2 (12:45)
== END 2017-05-02 11:28 | disposition swing bed (61) | DRG 194 ==
LOC: EDUNIT# 08:51 → ER 08:53 → UNDOADMOB 13:54 → 4TH 13:54 → INTOOBSV 04-29 10:42 → OBSVTOIN 04-29 10:42 → UNDODISIN 05-02 11:28
PROVIDERS: ADMIT Internal Medicine; ATTEND Internal Medicine
DX: J12.9 Viral pneumonia, unspecified (principal); J44.0 Chronic obstructive pulmonary disease with (acute) lower respiratory infection; N20.1 Calculus of ureter; I11.0 Hypertensive heart disease with heart failure; I50.22 Chronic systolic (congestive) heart failure; E88.09 Other disorders of plasma-protein metabolism, not elsewhere classified; D72.829 Elevated white blood cell count, unspecified; F17.210 Nicotine dependence, cigarettes, uncomplicated; I25.10 Atherosclerotic heart disease of native coronary artery without angina pectoris; E78.00 Pure hypercholesterolemia, unspecified; G40.909 Epilepsy, unspecified, not intractable, without status epilepticus; K21.9 Gastro-esophageal reflux disease without esophagitis; M06.9 Rheumatoid arthritis, unspecified; M79.7 Fibromyalgia; K57.90 Diverticulosis of intestine, part unspecified, without perforation or abscess without bleeding; K58.9 Irritable bowel syndrome, unspecified; M19.91 Primary osteoarthritis, unspecified site; J30.2 Other seasonal allergic rhinitis; H40.9 Unspecified glaucoma; F41.9 Anxiety disorder, unspecified; I25.2 Old myocardial infarction; F31.9 Bipolar disorder, unspecified; Z79.52 Long term (current) use of systemic steroids; Z79.01 Long term (current) use of anticoagulants; Z86.711 Personal history of pulmonary embolism; Z95.5 Presence of coronary angioplasty implant and graft
CPT/HCPCS: 36415; 71046; 74176; 80053; 81000; 83605; 84155; 84165; 84166; 84484; 85007; 85025; 85027; 87040; 87088; 87804; 93005; 93306; 94640; 94760; 96361; 96365; 96375; G0378

== ENCOUNTER 2017-05-02 10:31 | Inpatient (IN) | payer MEDICARE, MEDICAID ==
[~2017-05-02 10:31] MED LIST changes: +AZIT250T12 PO; +GABA-488 PO; +RIVA15TA PO
[2017-05-02] MEDS ORDERED: CYCLOBENZAPRINE 10 MG (FLEXERIL) TAB PO PRN (11:45)
[2017-05-02] MEDS ORDERED: CATHETER FLUSH 10 ML SYR IV PRN (11:45)
[2017-05-02] MEDS ORDERED: NITROGLYCERIN 0.4 MG SL TABS BTL 25'S SL PRN (11:45)
[2017-05-02] MEDS ORDERED: RT-ALBUTEROL/IPRATROPIUM 3 ML (DUONEB) VIAL INH PRN (11:45)
--- NOTE | 2017-05-02 12:49 | Progress Note-Hospitalist ---
Subjective HPI/CC On Admission Date Seen by Provider: May 02, 2017 Time Seen by Provider: 11:00 patient had episode of chest pain with worsening shortness of breath yesterday. EKG revealed findings for old inferior LA unchanged from previous EKGs. She has a known previous inferior LA and inferior wall akinesis with ejection fraction of 40 percent. She's had no further chest discomforts and reports breathing has improved. She still has a predominantly dry cough occasional scant clear sputum production. She denies chills or fever. She reports chronic low back pain but denies left flank pain. Objective Exam Vital Signs Capillary Refill : General Appearance: No Apparent Distress, Chronically ill Respiratory: No Accessory Muscle Use, No Respiratory Distress, Other (diffuse expiratory wheezing noted throughout with scattered rhonchi) Cardiovascular: Regular Rate, Rhythm, No Edema, No Gallop, No JVD, No Murmur, Normal Peripheral Pulses Gastrointestinal: Normal Bowel Sounds, No Organomegaly, No Pulsatile Mass, Non Tender, Soft Assessment/Plan Assessment and Plan Assess & Plan/Chief Complaint 1. By basilar pneumonia likely viral in etiology with reactive airways. Continue steroids and bronchodilator therapy. 2. Chest pain likely noncardiac in etiology agree with Dr. Werner. 3. Left distal ureteral lithiasis nonobstructing conservative management per urology. JOSE GUADALUPE SHAH MD May 02, 2017 12:49
[2017-05-02] MEDS: RT-ALBUTEROL/IPRATROPIUM 3 ML (DUONEB) VIAL INH SCH ×2 (13:56→19:05)
--- NOTE | 2017-05-02 16:01 | Cardiology Progress Note ---
Cardiology SOAP Progress Note Subjective: No further chest pain. Objective: I&O/Vital Signs Vital Sign - Last 12Hours 05/02/17 13:57 Pulse Ox 85 O2 Delivery Room Air O2 Flow Rate 2.50 Weight (Pounds): 179 Weight (Ounces): 0.0 Weight (Calculated Kilograms): 81.554833 Constitutional: No appears stated age, No AAO x 3, No apparent distress, No PERRL, No well-developed, No well-nourished, No other Respiratory: No accessory muscle use, No respiratory distress, No chest tender , No chest expansion is symmetric, No chest is bilaterally symmetric, lungs clear to percussion, lungs clear to auscultation, No crackles, No rhonchi, No rales, No stridor, No wheezing, No pleural rub, No other Cardiovascular: regular rate-rhythm, No irregularly irregular, No extra beats, No parasternal heave is noted, No JVD, No edema, No bradycardia, No tachycardia , No point of maximal impulse, No cardiac thrills are palpable, S1 and S2, No gallop/S3, No gallop/S4, No diastolic murmur, No systolic murmur, No friction rub, No click, No other Gastrointestional: No tender, No soft, No round, No distended, No pulsatile mass, No organomegaly, No guarding, No rebound, No tenderness, No hernia, No mass, No audible bowel sounds, No abnormal bowel sounds, No abdominal bruits, No spleenomegaly, No other Extremities: No normal range of motion, No non-tender, No normal inspection, No pedal edema, No calf tenderness, No normal capillary refill, No pelvis stable , No calf tenderness, No inflammation, No pedal edema, No slow capillary refill , No swelling, No other, No abrasion, No clubbing, No cyanosis, No ecchymosis, No laceration, No no lower extremity edema bilateral, No significant edema, No tenderness, No wound Neurologic/Psychiatric: No putty mixer and applier II-XII nml as tested, No no motor/sensory deficits, No alert, No normal mood/affect, No oriented x 3, No abnormal cerebellar tests, No abnormal putty mixer and applier II-XII, No abnormal gait, No aphasia, No EOM palsy, No facial droop, No motor weakness, No sensory deficit, No depressed affect, No disoriented x 3, No other, No grossly intact, No power is 5/5 both on sides Skin: No normal color, No warm/dry, No cyanosis, No cool, No diaphoresis, No damp, No ecchymosis, No jaundice, No mottled, No pallor, No rash, No tattoos/ piercings, No ulcerations, No rash on exposed areas, No ulcerations on exposed areas, No other A/P: Assessment/Dx: Pneumonia, history of urolithiasis, chest pain, History of CAD, PCI, History of pulmonary embolism, Ischemic cardiomyopathy with EF 40 percent. Plan: Chest pain, resolved with nitroglycerin. Acute coronary syndrome ruled out. Troponin 2 negative. EKG does not reveal any acute ST-T wave abnormalities. Continue to follow clinically. Coronary artery disease :November 26, 2014 STEMI and cardiac catheterization by Dr. Franklin with angioplasty to the left dominant circumflex artery with 3 x 10 mm angioscope balloon. Drug eluted stenting of the proximal and ostial left circumflex artery. Stents were 4 x 16 mm Promus Premier, 4 x 12 mm Promus Premier. Patient also underwent balloon angioplasty of the ostial LAD. It was dilated with a 38 mm emerge balloonJan2015 cardiac catheterization was done showing patent left main stent extending to the circumflex artery, patient had 40-50 percent ostial LAD stenosis, that is still present at that time. Conservative management is recommended, close monitoring is recommended. March 11, 2016 patient had patent stent in the left main, circumflex, had 40- 50 percent ostial LAD stenosis, did not change compared to the baseline, small nondominant right coronary. Most recent cardiac catheterization done December revealed patent stent in circumflex extending into the left main was small vessel disease of the distal dominant circumflex system. 50 percent ostial LAD stenosis, present previously, no change from baseline. EF 35-40 percent. Congestive heart failure, chronic left ventricular systolic dysfunction, EF 40 percent previous Echocardiogram. Repeat echocardiogram shows improved LV function. Hypertension-controlled. Continue to monitor blood pressure/heart rate. Hyperlipidemia, controlled. Lipid/LFTs due again in December 2016.continue to monitor lipids History of rheumatoid arthritis, maintained on meloxicam and prednisone. History of bipolar disorder History of anxiety and depression Irritable bowel syndrome and history of diverticulitis-patient has history of perforated diverticulum of May 2014 for which she had emergency surgery with resection and colostomy. Colostomy reversed in July 2014. Monitored by Dr. Santoyo and primary care physician. Leukocytosis-persistent. Followed by Dr Hercules. Pulmonary emboli-diagnosed December 2016. Maintained on Xarelto. Thank you for your consultation. Please call me if you have any questions. Alice Young MD, FACP, FACC, FSCAI, FHRS, CCDS Interventional Cardiology Cardiac Electrophysiology Vascular Medicine and Endovascular Interventions Rosemarie YOUNG MD May 02, 2017 4:01 pm
[2017-05-02] MEDS: methylPREDNISolone 125 MG (Solu-MEDROL) VIAL IV SCH ×2 (16:05→21:13)
[2017-05-02] MEDS: RIVAROXABAN 20 MG TABLET (XARELTO) PO SCH (16:06)
[2017-05-02] MEDS: HYDROcodone/APAP 5 MG/325 MG (LORTAB) TAB PO PRN (16:06)
[2017-05-02] MEDS: ACETAMINOPHEN 325 MG TABLET/CAPLET (TYLENOL) PO PRN (17:07)
[2017-05-02 17:10] VITALS: BP 139/83
[2017-05-02] MEDS: ATORVASTATIN 20 MG (LIPITOR) TABLET PO SCH (21:14)
[2017-05-02] MEDS: ASPIRIN E.C. 81 MG (ECOTRIN) TAB PO SCH (21:14)
[2017-05-02] MEDS: GABAPENTIN 300 MG (NEURONTIN) CAP PO SCH (21:14)
[2017-05-02] MEDS: ALPRAZolam 0.5 MG (XANAX) TAB PO PRN (21:14)
[2017-05-02] MEDS: ARTIFICAL TEARS 0.4 ML UNIT DOSE (REFRESH PLUS) OU SCH (21:14)
[2017-05-02] MEDS: VENlafaxine XR 75 MG (EFFEXOR XR) CAP PO SCH (21:14)
[2017-05-02] MEDS: PANTOPRAZOLE 40 MG (PROTONIX) TAB PO SCH (21:14)
[2017-05-03] MEDS: methylPREDNISolone 125 MG (Solu-MEDROL) VIAL IV SCH ×2 (05:30→20:18)
[2017-05-03 05:37] VITALS: BP 176/81
[2017-05-03] MEDS: ACETAMINOPHEN 325 MG TABLET/CAPLET (TYLENOL) PO PRN (06:57)
[2017-05-03] MEDS: RT-ALBUTEROL/IPRATROPIUM 3 ML (DUONEB) VIAL INH SCH ×4 (07:22→20:06)
[2017-05-03] MEDS: HYDROcodone/APAP 5 MG/325 MG (LORTAB) TAB PO PRN ×3 (08:58→16:53)
[2017-05-03] MEDS: cefTRIAXone INJECTION 1,000 MG in NS (IVPB) 50 ML IV SCH (09:07)
[2017-05-03] MEDS: AZITHROMYCIN INJECTION 500 MG in NS (IVPB) 250 ML IV SCH (09:07)
[2017-05-03] MEDS: ARTIFICAL TEARS 0.4 ML UNIT DOSE (REFRESH PLUS) OU SCH ×2 (09:10→20:18)
[2017-05-03] MEDS: ALPRAZolam 0.5 MG (XANAX) TAB PO PRN (11:35)
--- NOTE | 2017-05-03 14:02 | Cardiology Progress Note ---
Cardiology SOAP Progress Note Subjective: No significant chest pain. Objective: I&O/Vital Signs Vital Sign - Last 12Hours 05/03/17 05/03/17 05:37 07:22 Temp 97.6 Pulse 97 Resp 21 B/P (MAP) 176/81 (112) Pulse Ox 96 96 O2 Delivery Nasal Cannula Nasal Cannula O2 Flow Rate 2.50 3.00 Intake and Output 05/03/17 00:00 Intake Total 2160 ml Output Total 2300 ml Balance -140 ml Weight (Pounds): 179 Weight (Ounces): 0.0 Weight (Calculated Kilograms): 81.265980 Constitutional: No appears stated age, No AAO x 3, No apparent distress, No PERRL, No well-developed, No well-nourished, No other Respiratory: No accessory muscle use, No respiratory distress, No chest tender , No chest expansion is symmetric, No chest is bilaterally symmetric, lungs clear to percussion, lungs clear to auscultation, No crackles, No rhonchi, No rales, No stridor, No wheezing, No pleural rub, No other Cardiovascular: regular rate-rhythm, No irregularly irregular, No extra beats, No parasternal heave is noted, No JVD, No edema, No bradycardia, No tachycardia , No point of maximal impulse, No cardiac thrills are palpable, S1 and S2, No gallop/S3, No gallop/S4, No diastolic murmur, No systolic murmur, No friction rub, No click, No other Gastrointestional: No tender, No soft, No round, No distended, No pulsatile mass, No organomegaly, No guarding, No rebound, No tenderness, No hernia, No mass, No audible bowel sounds, No abnormal bowel sounds, No abdominal bruits, No spleenomegaly, No other Extremities: No normal range of motion, No non-tender, No normal inspection, No pedal edema, No calf tenderness, No normal capillary refill, No pelvis stable , No calf tenderness, No inflammation, No pedal edema, No slow capillary refill , No swelling, No other, No abrasion, No clubbing, No cyanosis, No ecchymosis, No laceration, No no lower extremity edema bilateral, No significant edema, No tenderness, No wound Neurologic/Psychiatric: No frame hand II-XII nml as tested, No no motor/sensory deficits, No alert, No normal mood/affect, No oriented x 3, No abnormal cerebellar tests, No abnormal frame hand II-XII, No abnormal gait, No aphasia, No EOM palsy, No facial droop, No motor weakness, No sensory deficit, No depressed affect, No disoriented x 3, No other, No grossly intact, No power is 5/5 both on sides Skin: No normal color, No warm/dry, No cyanosis, No cool, No diaphoresis, No damp, No ecchymosis, No jaundice, No mottled, No pallor, No rash, No tattoos/ piercings, No ulcerations, No rash on exposed areas, No ulcerations on exposed areas, No other A/P: Assessment/Dx: Pneumonia, history of urolithiasis, chest pain, History of CAD, PCI, History of pulmonary embolism, Ischemic cardiomyopathy with EF 40 percent. Plan: Chest pain, resolved with nitroglycerin. Acute coronary syndrome ruled out. Troponin 2 negative. EKG does not reveal any acute ST-T wave abnormalities. Continue to follow clinically. Coronary artery disease :November 26, 2014 STEMI and cardiac catheterization by Dr. Franklin with angioplasty to the left dominant circumflex artery with 3 x 10 mm angioscope balloon. Drug eluted stenting of the proximal and ostial left circumflex artery. Stents were 4 x 16 mm Promus Premier, 4 x 12 mm Promus Premier. Patient also underwent balloon angioplasty of the ostial LAD. It was dilated with a 38 mm emerge balloonJan2015 cardiac catheterization was done showing patent left main stent extending to the circumflex artery, patient had 40-50 percent ostial LAD stenosis, that is still present at that time. Conservative management is recommended, close monitoring is recommended. March 11, 2016 patient had patent stent in the left main, circumflex, had 40- 50 percent ostial LAD stenosis, did not change compared to the baseline, small nondominant right coronary. Most recent cardiac catheterization done December revealed patent stent in circumflex extending into the left main was small vessel disease of the distal dominant circumflex system. 50 percent ostial LAD stenosis, present previously, no change from baseline. EF 35-40 percent. Congestive heart failure, chronic left ventricular systolic dysfunction, EF 40 percent previous Echocardiogram. Repeat echocardiogram shows improved LV function. Hypertension-controlled. Continue to monitor blood pressure/heart rate. Hyperlipidemia, controlled. Lipid/LFTs due again in December 2016.continue to monitor lipids History of rheumatoid arthritis, maintained on meloxicam and prednisone. History of bipolar disorder History of anxiety and depression Irritable bowel syndrome and history of diverticulitis-patient has history of perforated diverticulum of May 2014 for which she had emergency surgery with resection and colostomy. Colostomy reversed in July 2014. Monitored by Dr. Santoyo and primary care physician. Leukocytosis-persistent. Followed by Dr Hercules. Pulmonary emboli-diagnosed December 2016. Maintained on Xarelto. Thank you for your consultation. Please call me if you have any questions. Alice Young MD, FACP, FACC, FSCAI, FHRS, CCDS Interventional Cardiology Cardiac Electrophysiology Vascular Medicine and Endovascular Interventions Rosemarie YOUNG MD May 03, 2017 2:02 pm
[2017-05-03] MEDS: RIVAROXABAN 20 MG TABLET (XARELTO) PO SCH (16:56)
[2017-05-03 17:27] VITALS: BP 167/92
[2017-05-03] MEDS: GABAPENTIN 300 MG (NEURONTIN) CAP PO SCH (20:17)
[2017-05-03] MEDS: ATORVASTATIN 20 MG (LIPITOR) TABLET PO SCH (20:17)
[2017-05-03] MEDS: PANTOPRAZOLE 40 MG (PROTONIX) TAB PO SCH (20:17)
[2017-05-03] MEDS: VENlafaxine XR 75 MG (EFFEXOR XR) CAP PO SCH (20:17)
[2017-05-03] MEDS: ASPIRIN E.C. 81 MG (ECOTRIN) TAB PO SCH (20:18)
[2017-05-03] MEDS: NYSTATIN ORAL SUSP 5 ML UDC PO SCH (21:56)
[2017-05-04] MEDS: HYDROcodone/APAP 5 MG/325 MG (LORTAB) TAB PO PRN ×3 (02:10→12:59)
[2017-05-04 06:55] VITALS: BP 166/76
[2017-05-04] MEDS: RT-ALBUTEROL/IPRATROPIUM 3 ML (DUONEB) VIAL INH SCH ×2 (07:26→11:47)
[2017-05-04] MEDS: cefTRIAXone INJECTION 1,000 MG in NS (IVPB) 50 ML IV SCH (07:50)
[2017-05-04] MEDS: methylPREDNISolone 125 MG (Solu-MEDROL) VIAL IV SCH (07:51)
[2017-05-04] MEDS: AZITHROMYCIN INJECTION 500 MG in NS (IVPB) 250 ML IV SCH (07:52)
[2017-05-04] MEDS: NYSTATIN ORAL SUSP 5 ML UDC PO SCH ×2 (07:52→13:30)
[2017-05-04] MEDS: ARTIFICAL TEARS 0.4 ML UNIT DOSE (REFRESH PLUS) OU SCH (08:02)
[2017-05-04] MEDS ORDERED: NS IV 500 ML 500 ML ONE (08:21)
[2017-05-04] MEDS ORDERED: NS IV 500 ML 500 ML IV SCH (09:30)
--- NOTE | 2017-05-04 12:43 | Cardiology Progress Note ---
Cardiology SOAP Progress Note Subjective: No further chest pain. Objective: I&O/Vital Signs Vital Sign - Last 12Hours 05/04/17 05/04/17 05/04/17 06:55 07:26 11:47 Temp 97.6 Pulse 73 Resp 20 B/P (MAP) 166/76 (106) Pulse Ox 95 96 96 O2 Delivery Nasal Cannula Nasal Cannula Nasal Cannula O2 Flow Rate 2.00 3.00 3.00 Intake and Output 05/04/17 00:00 Intake Total 2600 ml Output Total 3400 ml Balance -800 ml Weight (Pounds): 179 Weight (Ounces): 0.0 Weight (Calculated Kilograms): 81.393031 Constitutional: No appears stated age, No AAO x 3, No apparent distress, No PERRL, No well-developed, No well-nourished, No other Respiratory: No accessory muscle use, No respiratory distress, No chest tender , No chest expansion is symmetric, No chest is bilaterally symmetric, lungs clear to percussion, lungs clear to auscultation, No crackles, No rhonchi, No rales, No stridor, No wheezing, No pleural rub, No other Cardiovascular: regular rate-rhythm, No irregularly irregular, No extra beats, No parasternal heave is noted, No JVD, No edema, No bradycardia, No tachycardia , No point of maximal impulse, No cardiac thrills are palpable, S1 and S2, No gallop/S3, No gallop/S4, No diastolic murmur, No systolic murmur, No friction rub, No click, No other Gastrointestional: No tender, No soft, No round, No distended, No pulsatile mass, No organomegaly, No guarding, No rebound, No tenderness, No hernia, No mass, No audible bowel sounds, No abnormal bowel sounds, No abdominal bruits, No spleenomegaly, No other Extremities: No normal range of motion, No non-tender, No normal inspection, No pedal edema, No calf tenderness, No normal capillary refill, No pelvis stable , No calf tenderness, No inflammation, No pedal edema, No slow capillary refill , No swelling, No other, No abrasion, No clubbing, No cyanosis, No ecchymosis, No laceration, No no lower extremity edema bilateral, No significant edema, No tenderness, No wound Neurologic/Psychiatric: No direct of real estate II-XII nml as tested, No no motor/sensory deficits, No alert, No normal mood/affect, No oriented x 3, No abnormal cerebellar tests, No abnormal direct of real estate II-XII, No abnormal gait, No aphasia, No EOM palsy, No facial droop, No motor weakness, No sensory deficit, No depressed affect, No disoriented x 3, No other, No grossly intact, No power is 5/5 both on sides Skin: No normal color, No warm/dry, No cyanosis, No cool, No diaphoresis, No damp, No ecchymosis, No jaundice, No mottled, No pallor, No rash, No tattoos/ piercings, No ulcerations, No rash on exposed areas, No ulcerations on exposed areas, No other A/P: Assessment/Dx: Pneumonia, history of urolithiasis, chest pain, History of CAD, PCI, History of pulmonary embolism, Ischemic cardiomyopathy with EF 40 percent. Plan: Chest pain, resolved with nitroglycerin. Acute coronary syndrome ruled out. Troponin 2 negative. EKG does not reveal any acute ST-T wave abnormalities. Continue to follow clinically. Coronary artery disease :November 26, 2014 STEMI and cardiac catheterization by Dr. Franklin with angioplasty to the left dominant circumflex artery with 3 x 10 mm angioscope balloon. Drug eluted stenting of the proximal and ostial left circumflex artery. Stents were 4 x 16 mm Promus Premier, 4 x 12 mm Promus Premier. Patient also underwent balloon angioplasty of the ostial LAD. It was dilated with a 38 mm emerge balloonJan2015 cardiac catheterization was done showing patent left main stent extending to the circumflex artery, patient had 40-50 percent ostial LAD stenosis, that is still present at that time. Conservative management is recommended, close monitoring is recommended. March 11, 2016 patient had patent stent in the left main, circumflex, had 40- 50 percent ostial LAD stenosis, did not change compared to the baseline, small nondominant right coronary. Most recent cardiac catheterization done December revealed patent stent in circumflex extending into the left main was small vessel disease of the distal dominant circumflex system. 50 percent ostial LAD stenosis, present previously, no change from baseline. EF 35-40 percent. Congestive heart failure, chronic left ventricular systolic dysfunction, EF 40 percent previous Echocardiogram. Repeat echocardiogram shows improved LV function. Hypertension-controlled. Continue to monitor blood pressure/heart rate. Hyperlipidemia, controlled. Lipid/LFTs due again in December 2016.continue to monitor lipids History of rheumatoid arthritis, maintained on meloxicam and prednisone. History of bipolar disorder History of anxiety and depression Irritable bowel syndrome and history of diverticulitis-patient has history of perforated diverticulum of May 2014 for which she had emergency surgery with resection and colostomy. Colostomy reversed in July 2014. Monitored by Dr. Sanotyo and primary care physician. Leukocytosis-persistent. Followed by Dr Hercules. Pulmonary emboli-diagnosed December 2016. Maintained on Xarelto. Thank you for your consultation. Please call me if you have any questions. Alice Young MD, FACP, FACC, FSCAI, FHRS, CCDS Interventional Cardiology Cardiac Electrophysiology Vascular Medicine and Endovascular Interventions Rosemarie YOUNG MD May 04, 2017 12:43 pm
[2017-05-04] MEDS ORDERED: IPRA3AMP INH ×2 (12:45)
[2017-05-04] MEDS ORDERED: ACHD5005 PO ×2 (12:45)
[2017-05-04] MEDS ORDERED: PRED10TA22 PO ×2 (12:45)
[2017-05-04] MEDS ORDERED: CEFD300C3 PO ×2 (12:45)
--- NOTE | 2017-05-04 12:47 | Discharge Summary-Hospitalist ---
Diagnosis/Chief Complaint Date of Admission May 02, 2017 at 11:43 Date of Discharge Discharge Date: May 04, 2017 Discharge Diagnosis 1. Bibasilar pneumonia likely viral in etiology with reactive airways. Continue steroids and bronchodilator therapy. 2. Chest pain likely noncardiac in etiology agree with Dr. Dobbins. 3. Left distal ureteral lithiasis nonobstructing conservative management per urology. Discharge Summary Discharge Physical Examination Allergies: Coded Allergies: sulfamethoxazole (Verified Allergy, Intermediate, VOMITTING/MIGRAINE, ) trimethoprim (Verified Allergy, Intermediate, VOMITTING/MIGRAINE, 03/14/16 ) codeine (Unverified Allergy, Mild, TAKES HYDROCODONE AT HOME, 07/04/14) pentazocine (Unverified Adverse Reaction, Mild, N/V, HEAD ACHE, 07/04/14) Vitals & I&Os Vital Signs Date Time Temp Pulse Resp B/P (MAP) Pulse Ox O2 Delivery O2 Flow Rate FiO2 05/04/17 11:47 96 Nasal Cannula 3.00 05/04/17 06:55 97.6 73 20 166/76 (106) Hospital Course Hospital course: Patient a brief swing bed hospital course she was placed on IV antibiotics IV steroids and nebulizer treatments along with oxygen. Ureteral stone was managed by urology and did not show evidence of any obstruction so that will be managed as an outpatient. Overall she improved but she did require oxygen supplementation at 3 L continuous at discharge home and she really wanted to go home and cheery had nebulizer treatments at home so I sent oral antibiotics along with prednisone in pain medication to pharmacy with close follow-up with her primary care provider in [place]. Discharge Home Medications: Active Scripts Active Cefdinir 300 Mg Capsule 300 Mg PO BID Prednisone 10 Mg Tab.ds.pk 10 Mg PO DAILY Take 6 tabs(60mg)daily,decrease by 1 tab(10MG)daily. Hydrocodone/Acetaminophen 5/325mg Tablet (Acetaminophen/Hydrocodone Bitart) 1 Tab Tab 1 Tab PO Q4H PRN Iprat-Albut 0.5-3(2.5) mg/3 ml (Ipratropium/Albuterol Sulfate) 3 Ml Ampul.neb 3 Ml INH RTQID 7 Days Reported Gabapentin 300 Mg Capsule 300 Mg PO HS Xarelto (Rivaroxaban) 15 Mg Tablet 15 Mg PO HS Ventolin Hfa (Albuterol Sulfate) 18 Gm Hfa.aer.ad 2 Puff INH Q4H PRN Ibuprofen 800 Mg Tablet 800 Mg PO Q8H PRN Restasis (Cyclosporine) 1 Each Droperette 1 Drop OU BID Cyclobenzaprine HCl 10 Mg Tablet 10 Mg PO TID PRN Aspirin EC (Aspirin) 81 Mg Tablet.dr 81 Mg PO HS Ondansetron HCl 4 Mg Tablet 4 Mg PO Q6H PRN Acetaminophen 500 Mg Tablet 1,000 Mg PO Q6H PRN Nitroglycerin 0.4 Mg Tab.subl 0.4 Mg SL UD PRN Metoprolol Tartrate 25 Mg Tablet 12.5 Mg PO BID LAST FILLED #90 8-28-17 TAKES 1/2 OF A (25 MG) TABLET Atorvastatin Calcium 20 Mg Tablet 20 Mg PO HS Fenofibrate (Fenofibrate,Micronized) 134 Mg Capsule 134 Mg PO HS Lansoprazole 30 Mg Capsule.dr 30 Mg PO HS Venlafaxine HCl ER (Venlafaxine HCl) 75 Mg Cap.er.24h 75 Mg PO HS Instructions to patient/family Please see electronic discharge instructions given to patient. Clinical Quality Measures DVT/VTE Risk/Contraindication: Risk Factor Score Per Nursin TYSHAWN VOSS DO May 04, 2017 12:47
[2017-05-04 15:00] VITALS: BP 158/88
== END 2017-05-04 15:00 | disposition home or self-care (01) | DRG 194 ==
LOC: 4TH 11:43
PROVIDERS: ADMIT Internal Medicine; ATTEND Internal Medicine
DX: J12.9 Viral pneumonia, unspecified (principal); J44.0 Chronic obstructive pulmonary disease with (acute) lower respiratory infection; N20.1 Calculus of ureter; I11.0 Hypertensive heart disease with heart failure; I50.22 Chronic systolic (congestive) heart failure; F17.210 Nicotine dependence, cigarettes, uncomplicated; I25.10 Atherosclerotic heart disease of native coronary artery without angina pectoris; I25.5 Ischemic cardiomyopathy; E78.5 Hyperlipidemia, unspecified; I25.2 Old myocardial infarction; Z79.52 Long term (current) use of systemic steroids; Z79.01 Long term (current) use of anticoagulants; Z86.711 Personal history of pulmonary embolism; Z95.5 Presence of coronary angioplasty implant and graft
CPT/HCPCS: 94640; 94760; 94761

== ENCOUNTER 2017-05-06 18:33 | Emergency (ER) | payer MEDICARE, MEDICAID ==
[~2017-05-06] VITALS: Ht 157.5 cm; Wt 77.1 kg
[~2017-05-06 18:33] MED LIST changes: +IPRA3AMP INH; +PRED10TA22 PO
[2017-05-06] MEDS ORDERED: oxyCODONE/APAP 5/325MG (PERCOCET 5) TABLET PO STA (20:43)
--- NOTE | 2017-05-06 20:47 | ED General ---
General Chief Complaint: Respiratory Problems Stated Complaint: COPD;HAND SWELLING Nursing Triage Note: pt reports r hand swelling and pain starting this am. pt also reports intermittent fevers. pt reports she was discharged friday morning for pneumonia. Nursing Sepsis Screen: Possible Sepsis Risk Source of Information: Patient Exam Limitations: No Limitations History of Present Illness Date Seen by Provider: May 06, 2017 Time Seen by Provider: 20:25 Allergies and Home Medications Allergies Coded Allergies: sulfamethoxazole (Verified Allergy, Intermediate, VOMITTING/MIGRAINE, ) trimethoprim (Verified Allergy, Intermediate, VOMITTING/MIGRAINE, 03/14/16 ) codeine (Unverified Allergy, Mild, TAKES HYDROCODONE AT HOME, 07/04/14) pentazocine (Unverified Adverse Reaction, Mild, N/V, HEAD ACHE, 07/04/14) Home Medications Acetaminophen 500 Mg Tablet, 1,000 MG PO Q6H PRN for PAIN-MILD, (Reported) Albuterol Sulfate 18 Gm Hfa.aer.ad, 2 PUFF INH Q4H PRN for SHORTNESS OF BREATH, (Reported) Aspirin 81 Mg Tablet.dr, 81 MG PO HS, (Reported) Atorvastatin Calcium 20 Mg Tablet, 20 MG PO HS, (Reported) Cefdinir 300 Mg Capsule, 300 MG PO BID, #4 Prescribed by: TYSHAWN VOSS on 05/04/17 124 Cefdinir 300 Mg Capsule, 300 MG PO BID, #10 Ref 0 Prescribed by: MURALI TRIVEDI on 05/06/175 Clindamycin HCl 300 Mg Capsule, 300 MG PO QID, #12 Ref 0 Prescribed by: MURALI TRIVEDI on 05/06/175 Cyclobenzaprine HCl 10 Mg Tablet, 10 MG PO TID PRN for MUSCLE SPASMS, (Reported) Cyclosporine 1 Each Droperette, 1 DROP OU BID, (Reported) Fenofibrate,Micronized 134 Mg Capsule, 134 MG PO HS, (Reported) Gabapentin 300 Mg Capsule, 300 MG PO HS, (Reported) Hydrocodone Bit/Acetaminophen 1 Tab Tab, 1 TAB PO Q4H PRN for PAIN-MODERATE, #15 Prescribed by: TYSHAWN VOSS on 05/04/17 1245 Ibuprofen 800 Mg Tablet, 800 MG PO Q8H PRN for PAIN-MILD, (Reported) Ipratropium/Albuterol Sulfate 3 Ml Ampul.neb, 3 ML INH RTQID for 7 Days Prescribed by: TYSHAWN VOSS on 05/04/17 1245 Lansoprazole 30 Mg Capsule.dr, 30 MG PO HS, (Reported) Metoprolol Tartrate 25 Mg Tablet, 12.5 MG PO BID, (Reported) LAST FILLED #90 8-28-17 TAKES 1/2 OF A (25 MG) TABLET Nitroglycerin 0.4 Mg Tab.subl, 0.4 MG SL UD PRN for CHEST PAIN, (Reported) Nystatin 100,000 Unit/1 Ml Oral.susp, 5 ML PO QID, #200 Ref 0 Prescribed by: MURALI TIRVEDI on 05/06/172224 Ondansetron HCl 4 Mg Tablet, 4 MG PO Q6H PRN for NAUSEA/VOMITING-1ST LINE, ( Reported) Phenazopyridine HCl 100 Mg Tablet, 100 MG PO Q8H PRN for pain, #14 Ref 0 Prescribed by: MURALI TRIVEDI on 05/06/172224 Prednisone 10 Mg Tab.ds.pk, 10 MG PO DAILY, #21 Take 6 tabs(60mg)daily,decrease by 1 tab(10MG)daily. Prescribed by: TYSHAWN VOSS on 05/04/17 1245 Rivaroxaban 15 Mg Tablet, 15 MG PO HS, (Reported) Venlafaxine HCl 75 Mg Cap.er.24h, 75 MG PO HS, (Reported) Past Mwvkfuq-Qorsoy-Xbypos Hx Patient Social History Alcohol Use: Denies Use Recreational Drug Use: No (ETOH, THC) Smoking Status: Former Smoker Type Used: Cigarettes Former Smoker, Quit: May 01, 2017 2nd Hand Smoke Exposure: No Recent Foreign Travel: No Contact w/Someone Who Travel: No Recent Infectious Disease Expo: No Recent Hopitalizations: Yes (03/19/16 LITHOTRIPSY) Physical Abuse: No Sexual Abuse: No Mistreated: No Fear: No Immunizations Up To Date Tetanus Booster (TDap): More than 5yrs PED Vaccines UTD: No Date of Pneumonia Vaccine: May 01, 2015 Date of Influenza Vaccine: Jan 01, 2017 Seasonal Allergies Seasonal Allergies: Yes Surgeries History of Surgeries: Yes Surgeries: Abdominal, Appendectomy, Bowel Surgery, Breast, Cardiac, Coronary Stent, Eye Surgery, Gallbladder, Hysterectomy, Oophorectomy, Renal Respiratory History of Respiratory Disorde: Yes (RESPIRATORY FAILURE ON VENT X 1 ) Respiratory Disorders: Asthma, Pneumonia, Chronic Bronchitis, Pulmonary Embolism, COPD Currently Using CPAP: No Currently Using BIPAP: No Cardiovascular History of Cardiac Disorders: Yes (STENT PLACED OCTOBER 2014 AFTER [place]) Cardiac Disorders: Coronary Artery Disease, Heart Attack, High Cholesterol, Hypertension Neurological History of Neurological Disord: Yes Neurological Disorders: Seizure Disorder 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 System Hx 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 Disorders: Yes (CERVICAL DYSPLASIA--S/P HYST/BSO) Sexually Transmitted Disease: No HIV/AIDS: No 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 Disorders: Denies 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 Genitourinary History of Genitourinary Disor: Yes Genitourinary Disorders: Bladder Infection, Kidney Stones, Renal Failure Gastrointestinal History of Gastrointestinal Di: Yes Gastrointestinal Disorders: Gastroesophageal Reflux, Diverticulosis, Irritable Bowel Musculoskeletal History of Musculoskeletal Dis: Yes Musculoskeletal Disorders: Arthritis, Fibromyalgia, Rheumatoid Arthritis Endocrine History of Endocrine Disorders: No HEENT History of HEENT Disorders: Yes HEENT Disorders: Glaucoma Loss of Vision: Denies Hearing Impairment: Denies Cancer History of Cancer: No Psychosocial History of Psychiatric Problem: Yes Behavioral Health Disorders: Anxiety, Bipolar, Depression Suicide Risk Score: 0 Integumentary History of Skin or Integumenta: Yes (SHINGLES) Blood Transfusions History of Blood Disorders: No Adverse Reaction to a Blood Tr: No Family Medical History Significant Family History: Cancer, Other Conditions/Hx Family Medial History: CANCER 19 MOTHER (PATIENT DOES NOT KNOW LOCATION) Physical Exam Vital Signs Vital Signs - First Documented 05/06/17 05/06/17 19:37 21:50 Temp 97.4 Pulse 117 Resp 20 B/P (MAP) 145/68 (93) Pulse Ox 94 O2 Delivery Nasal Cannula O2 Flow Rate 2.00 Capillary Refill : Less Than 3 Seconds Date of ETT Placement: Feb 11, 2016 Time of ETT Placement: 1341 Progress/Results/Core Measures Suspected Sepsis Recent Fever Within 48 Hours: Yes Infection Criteria Present: Suspected New Infection New/Unexplained Altered Menta: No Sepsis Screen: Possible Sepsis Risk Sepsis Diagnosis: SIRS Temperature:97.4 Pulse: 117 Respiratory Rate: 20 Blood Pressure 145 /68 Mean: 93 Results/Orders My Orders Orders - MURALI TRIVEDI Hand, Right, 3 Views (05/06/17 20:43) Oxycodone/Apap 5/325mg Tablet (Percocet (05/06/17 20:43) Ct Abd/Pelvis Wo(Kidney Stone) (05/06/17 20:45) Chest 1 View, Ap/Pa Only (05/06/17 20:48) Albuterol/Ipra Inhalation Soln (Duoneb I (05/06/17 21:45) Svn Sm Volume Nebulizer Rt-Rfs (05/06/17 21:32) Medications Given in ED Current Medications Medications Dose Ordered Sig/Jamie Route Start Time Stop Time Status Last Admin Dose Admin Albuterol/ Ipratropium 3 ml ONCE ONCE INH 05/06/17 21:45 05/06/17 21:46 DC 05/06/17 21:49 3 ML Vital Signs/I&O Vital Sign - Last 12Hours 05/06/17 05/06/17 19:37 21:50 Temp 97.4 Pulse 117 Resp 20 B/P (MAP) 145/68 (93) Pulse Ox 94 97 O2 Delivery Nasal Cannula O2 Flow Rate 2.00 Capillary Refill : Less Than 3 Seconds Blood Pressure Mean: 93 Departure Impression Impression: Primary Impression: Contusion of right hand Additional Impressions: Pneumonitis Renal colic on left side Thrush, oral Disposition: HOME, SELF-CARE Condition: Improved Departure-Patient Inst. Decision time for Depature: 22:18 Referrals: ADRIANNA HAND MD (PCP/Family) Primary Care Physician Patient Instructions: Contusion (DC), Renal Colic (DC) Add. Discharge Instructions: All discharge instructions reviewed with patient and/or family. Voiced understanding. Medications as instructed. Continue with the medications as prescribed to you at the time of discharge from [facility] on 05/04/17. Elevate the right hand on pillows above the level of the heart. Ice pack for 20 minute intervals to the right hand as needed. Max wrap to the right hand as instructed. The kidney stone that was previously noted in the left ureter has been passed ( It is no longer visible on CT scan). Follow-up with Dr. Hand tomorrow or for recheck. Call tomorrow morning for appointment time. Continue the hydrocodone as prescribed by Dr. Voss. Return to the emergency department for worsened symptoms or any other concerns. Scripts Phenazopyridine HCl (Pyridium) 100 Mg Tablet 100 MG PO Q8H Y for pain, #14 TAB 0 Refills Prov: MURALI TRIVEDI 05/06/17 Nystatin (Nystatin) 100,000 Unit/1 Ml Oral.susp 5 ML PO QID, #200 ML 0 Refills Prov: MURALI TRIVEDI 05/06/17 Cefdinir (Cefdinir) 300 Mg Capsule 300 MG PO BID, #10 CAP 0 Refills Prov: MURALI TRIVEDI 05/06/17 Clindamycin HCl (Clindamycin HCl) 300 Mg Capsule 300 MG PO QID, #12 CAP 0 Refills Prov: MURALI TRIVEDI 05/06/17 MURALI TRIVEDI May 06, 2017 20:46
--- NOTE | 2017-05-06 21:06 | Diagnostic Imaging Report ---
INDICATION: Dyspnea Portable upright AP view of the chest is obtained with comparison made to the study of 04/28/2017. Overall heart size and pulmonary vascularity are within normal limits. No pneumothorax or consolidation is identified. Probable scattered calcified granulomas are seen in both lungs. Oxygen tubing overlies the chest. There is no evidence of pneumothorax, consolidation or significant pleural fluid. IMPRESSION: Stable chest without acute abnormality identified. Dictated by: Dictated on workstation # [id number]
--- NOTE | 2017-05-06 21:06 | Diagnostic Imaging Report ---
INDICATION: Right hand erythema and swelling. EXAM: AP, oblique and lateral views of the right hand are obtained. FINDINGS: No acute fracture or dislocation is identified. No abnormal lytic or sclerotic focus is seen, and there is no radiopaque foreign body. IMPRESSION: No acute abnormality. Dictated by: Dictated on workstation # [id number]
--- NOTE | 2017-05-06 21:27 | Diagnostic Imaging Report ---
PROCEDURE: CT urinary tract, rule out kidney stone. TECHNIQUE: Multiple contiguous axial images were obtained through the abdomen and pelvis without the use of intravenous contrast. INDICATION: Back and abdominal pain Comparison is made to study of 04/29/2017. There are patchy areas of groundglass opacity seen in the visualized portions of both lower lung nam. Numerous scattered calcified granulomas are also seen bilaterally. There is low-density throughout the liver indicating steatosis with previous cholecystectomy. No pancreatic or splenic abnormality is identified. Adrenal glands are unremarkable in appearance. Evaluation of the kidneys is somewhat limited without intravenous contrast. There is mild left hydronephrosis. The distal left ureteric calculus seen on the previous study is no longer appreciated. There is no evidence of intraluminal bladder stone. There are postoperative changes at the level of the sigmoid colon with continued large amount of stool burden in the cecum. There is thinning of the anterior abdominal wall with multiple small bowel loops adherent to the anterior wall which may be related to adhesion. No free fluid is seen in the abdomen or pelvis. There is no organized fluid collection to indicate an abscess. IMPRESSION: Apparent resolution of distal left ureteric calculus noted on previous study. There is mild residual left hydronephrosis. Large amount of stool seen within the region of the cecum with possible adhesion of small bowel loops to the thinned anterior abdominal wall. There is no evidence of bowel obstruction. Hepatic steatosis is again noted. There does appear to be bilateral pulmonary edema or pneumonitis and clinical correlation is recommended. Dictated by: Dictated on workstation # [id number]
[2017-05-06] MEDS ORDERED: RT-ALBUTEROL/IPRATROPIUM 3 ML (DUONEB) VIAL INH ONE (21:45)
[2017-05-06] MEDS ORDERED: CLIN300C11 PO (22:25)
[2017-05-06] MEDS ORDERED: NYST1000 PO (22:25)
[2017-05-06] MEDS ORDERED: CEFD300C3 PO (22:25)
[2017-05-06] MEDS ORDERED: PHEN-639 PO (22:25)
[2017-05-06] MEDS ORDERED: FLUCONAZOLE 150 MG TABLET (ED ONLY) PO ONE (22:30)
[2017-05-06] MEDS ORDERED: IBUPROFEN 800 MG (MOTRIN) TAB PO STA (22:32)
[2017-05-06 22:40] VITALS: BP 141/71
== END 2017-05-06 22:40 | disposition home or self-care (01) ==
LOC: EDUNIT# 18:33 → ER 18:35
DX: S60.221A Contusion of right hand, initial encounter (principal); J18.9 Pneumonia, unspecified organism; N23 Unspecified renal colic; B37.0 Candidal stomatitis; J44.9 Chronic obstructive pulmonary disease, unspecified; F41.9 Anxiety disorder, unspecified; F31.9 Bipolar disorder, unspecified; K21.9 Gastro-esophageal reflux disease without esophagitis; G40.909 Epilepsy, unspecified, not intractable, without status epilepticus; I25.10 Atherosclerotic heart disease of native coronary artery without angina pectoris; I25.2 Old myocardial infarction; E78.00 Pure hypercholesterolemia, unspecified; I10 Essential (primary) hypertension; M06.9 Rheumatoid arthritis, unspecified; Z90.710 Acquired absence of both cervix and uterus; Z87.442 Personal history of urinary calculi; Z95.5 Presence of coronary angioplasty implant and graft; Z90.49 Acquired absence of other specified parts of digestive tract; Z87.891 Personal history of nicotine dependence; Z79.82 Long term (current) use of aspirin; Z88.2 Allergy status to sulfonamides; Z88.5 Allergy status to narcotic agent; Z88.6 Allergy status to analgesic agent; Z79.52 Long term (current) use of systemic steroids
CPT/HCPCS: 71045; 73130; 74176; 94640; 94664; 99283

== ENCOUNTER 2017-05-14 18:07 | Inpatient (IN) | payer MEDICARE, MEDICAID ==
[~2017-05-14] VITALS: Ht 157.5 cm; Wt 83.5 kg
[~2017-05-14 18:07] MED LIST changes: +CLIN300C11 PO; +NYST1000 PO; +PHEN-639 PO
[2017-05-14] MEDS ORDERED: NS IV 1000 ML 1,000 ML IV ONE ×2 (18:28→19:16)
[2017-05-14] MEDS ORDERED: ONDANSETRON 4 MG/2 ML (SDV) Z0FRAN IVP ONE (18:30)
[2017-05-14 18:40] LABS: BASOPHILS # (AUTO) 0.1 10^3/uL (0.0-0.1); BASOPHILS % (AUTO) 0 % (0-10); EOSINOPHILS % (AUTO) 0 % (0-10); HEMATOCRIT 38 % (35-52); HEMOGLOBIN 13.4 G/DL (11.5-16.0); LYMPHOCYTES # (AUTO) 2.2 X 10^3 (1.0-4.0); LYMPHOCYTES % (AUTO) 9 % (12-44); MEAN CORPUSCULAR HEMOGLOBIN 29 PG (25-34); MEAN CORPUSCULAR HGB CONC 35 G/DL (32-36); MEAN CORPUSCULAR VOLUME 82 FL (80-99); MEAN PLATELET VOLUME 10.8 FL (7.4-10.4); MONOCYTES # (AUTO) 1.8 X 10^3 (0.0-1.0); MONOCYTES % (AUTO) 7 % (0-12); NEUTROPHILS # (AUTO) 20.3 X 10^3 (1.8-7.8); NEUTROPHILS % (AUTO) 84 % (42-75); PLATELET COUNT 453 10^3/uL (130-400); RED BLOOD COUNT 4.67 10^6/uL (4.35-5.85); RED CELL DISTRIBUTION WIDTH 14.6 % (10.0-14.5); WHITE BLOOD COUNT 24.3 10^3/uL (4.3-11.0)
[2017-05-14 18:43] LABS: INR 1.2 (0.8-1.4)
--- NOTE | 2017-05-14 18:47 | ED General ---
General Chief Complaint: Abdominal/GI Problems Stated Complaint: FEVER, N/V, ABD PAIN Nursing Triage Note: pt reports nausea, soft stools, l sided abdominal pain and fever. Nursing Sepsis Screen: Possible Sepsis Risk Source of Information: Patient, Old Records Exam Limitations: No Limitations History of Present Illness Date Seen by Provider: May 14, 2017 Time Seen by Provider: 18:18 Initial Comments This 56-year-old woman presents to the emergency room with complaints of extreme nausea and thirst, feverish sensation, and productive cough over the last 24 hours. Her stools have been soft and frequent but not diarrhea. She has left-sided abdominal pain especially with urination and defecation. She has headache. She also has abdominal pain with eating. She is status post cholecystectomy. She reports a history of pancreatitis prior to her cholecystectomy. She was recently admitted April 29 for pneumonia and COPD exacerbation. She had a prolonged stay on swing bed. She is notably tachycardic with a heart rate in the 120s. Patient was also seen recently in the emergency room for swelling and erythema of the right hand. This was felt to be a contusion but antibiotics were prescribed as a precaution. Allergies and Home Medications Allergies Coded Allergies: sulfamethoxazole (Verified Allergy, Intermediate, VOMITTING/MIGRAINE, ) trimethoprim (Verified Allergy, Intermediate, VOMITTING/MIGRAINE, 03/14/16 ) codeine (Unverified Allergy, Mild, TAKES HYDROCODONE AT HOME, 07/04/14) pentazocine (Unverified Adverse Reaction, Mild, N/V, HEAD ACHE, 07/04/14) Home Medications Acetaminophen 500 Mg Tablet, 1,000 MG PO Q6H PRN for PAIN-MILD, (Reported) Albuterol Sulfate 18 Gm Hfa.aer.ad, 2 PUFF INH Q4H PRN for SHORTNESS OF BREATH, (Reported) Aspirin 81 Mg Tablet.dr, 81 MG PO HS, (Reported) Atorvastatin Calcium 20 Mg Tablet, 20 MG PO HS, (Reported) Cefdinir 300 Mg Capsule, 300 MG PO BID, #4 Prescribed by: TYSHAWN VOSS on 05/04/17 1245 Cefdinir 300 Mg Capsule, 300 MG PO BID, #10 Ref 0 Prescribed by: MURALI TRIVEDI on 05/06/17 2225 Clindamycin HCl 300 Mg Capsule, 300 MG PO QID, #12 Ref 0 Prescribed by: MURALI TRIVEDI on 05/06/172224 Cyclobenzaprine HCl 10 Mg Tablet, 10 MG PO TID PRN for MUSCLE SPASMS, (Reported) Cyclosporine 1 Each Droperette, 1 DROP OU BID, (Reported) Fenofibrate,Micronized 134 Mg Capsule, 134 MG PO HS, (Reported) Gabapentin 300 Mg Capsule, 300 MG PO HS, (Reported) Hydrocodone Bit/Acetaminophen 1 Tab Tab, 1 TAB PO Q4H PRN for PAIN-MODERATE, #15 Prescribed by: TYSHAWN VOSS on 05/04/171244 Ibuprofen 800 Mg Tablet, 800 MG PO Q8H PRN for PAIN-MILD, (Reported) Ipratropium/Albuterol Sulfate 3 Ml Ampul.neb, 3 ML INH RTQID for 7 Days Prescribed by: TYSHAWN VOSS on 05/04/171244 Lansoprazole 30 Mg Capsule.dr, 30 MG PO HS, (Reported) Metoprolol Tartrate 25 Mg Tablet, 12.5 MG PO BID, (Reported) LAST FILLED #90 8-28-17 TAKES 1/2 OF A (25 MG) TABLET Nitroglycerin 0.4 Mg Tab.subl, 0.4 MG SL UD PRN for CHEST PAIN, (Reported) Nystatin 100,000 Unit/1 Ml Oral.susp, 5 ML PO QID, #200 Ref 0 Prescribed by: MURALI TRIVEDI on 05/06/172224 Ondansetron HCl 4 Mg Tablet, 4 MG PO Q6H PRN for NAUSEA/VOMITING-1ST LINE, ( Reported) Phenazopyridine HCl 100 Mg Tablet, 100 MG PO Q8H PRN for pain, #14 Ref 0 Prescribed by: MURALI TRIVEDI on 05/06/172224 Prednisone 10 Mg Tab.ds.pk, 10 MG PO DAILY, #21 Take 6 tabs(60mg)daily,decrease by 1 tab(10MG)daily. Prescribed by: TYSHAWN VOSS on 05/04/171244 Rivaroxaban 15 Mg Tablet, 15 MG PO HS, (Reported) Venlafaxine HCl 75 Mg Cap.er.24h, 75 MG PO HS, (Reported) Constitutional: see HPI EENTM: see HPI Respiratory: see HPI Cardiovascular: see HPI Gastrointestinal: see HPI Genitourinary: see HPI : No Musculoskeletal: no symptoms reported Skin: no symptoms reported Psychiatric/Neurological: No Symptoms Reported Hematologic/Lymphatic: No Symptoms Reported Immunological/Allergic: no symptoms reported Past Ggkxddr-Bcvlge-Gzppfk Hx Patient Social History Alcohol Use: Denies Use Recreational Drug Use: No (ETOH, THC) Smoking Status: Former Smoker Type Used: Cigarettes Former Smoker, Quit: May 01, 2017 2nd Hand Smoke Exposure: No Recent Foreign Travel: No Contact w/Someone Who Travel: No Recent Infectious Disease Expo: No Recent Hopitalizations: Yes (03/19/16 LITHOTRIPSY) Physical Abuse: No Sexual Abuse: No Mistreated: No Fear: No Immunizations Up To Date Tetanus Booster (TDap): More than 5yrs PED Vaccines UTD: No Date of Pneumonia Vaccine: May 01, 2015 Date of Influenza Vaccine: Jan 01, 2017 Seasonal Allergies Seasonal Allergies: Yes Surgeries History of Surgeries: Yes Surgeries: Abdominal, Appendectomy, Bowel Surgery, Breast, Cardiac, Coronary Stent, Eye Surgery, Gallbladder, Hysterectomy, Oophorectomy, Renal Respiratory History of Respiratory Disorde: Yes (RESPIRATORY FAILURE ON VENT X 1 ) Respiratory Disorders: Asthma, Pneumonia, Chronic Bronchitis, Pulmonary Embolism, COPD Currently Using CPAP: No Currently Using BIPAP: No Cardiovascular History of Cardiac Disorders: Yes (STENT PLACED OCTOBER 2014 AFTER VT) Cardiac Disorders: Coronary Artery Disease, Heart Attack, High Cholesterol, Hypertension Neurological History of Neurological Disord: Yes Neurological Disorders: Seizure Disorder 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 System Hx 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 Disorders: Yes (CERVICAL DYSPLASIA--S/P HYST/BSO) Sexually Transmitted Disease: No HIV/AIDS: No 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 Genitourinary History of Genitourinary Disor: Yes Genitourinary Disorders: Bladder Infection, Kidney Stones, Renal Failure Gastrointestinal History of Gastrointestinal Di: Yes Gastrointestinal Disorders: Gastroesophageal Reflux, Diverticulosis, Irritable Bowel Musculoskeletal History of Musculoskeletal Dis: Yes Musculoskeletal Disorders: Arthritis, Fibromyalgia, Rheumatoid Arthritis Endocrine History of Endocrine Disorders: No HEENT History of HEENT Disorders: Yes HEENT Disorders: Glaucoma Loss of Vision: Denies Hearing Impairment: Denies Cancer History of Cancer: No Psychosocial History of Psychiatric Problem: Yes Behavioral Health Disorders: Anxiety, Bipolar, Depression Suicide Risk Score: 0 Integumentary History of Skin or Integumenta: Yes (SHINGLES) Blood Transfusions History of Blood Disorders: No Adverse Reaction to a Blood Tr: No Family Medical History Significant Family History: Cancer, Other Conditions/Hx Family Medial History: CANCER 19 MOTHER (PATIENT DOES NOT KNOW LOCATION) Physical Exam-Suspected Sepsis Physical Exam Vital Signs Vital Signs - First Documented 05/14/17 18:21 Temp 97.3 Pulse 134 Resp 20 B/P (MAP) 133/111 (118) Pulse Ox 94 O2 Delivery Nasal Cannula O2 Flow Rate 2.00 Capillary Refill : Less Than 3 Seconds Blood Pressure Mean: 118 General Appearance: WD/WN, Mild Distress HEENT: PERRL/EOMI, Normal ENT Inspection, Other (oropharynx very dry) Neck: Normal Inspection Respiratory: Lungs Clear, Normal Breath Sounds, No Accessory Muscle Use, No Respiratory Distress Cardiovascular: No Edema, No Murmur, Tachycardia Gastrointestinal: Soft, Abnormal Bowel Sounds (decreased), Tenderness ( throughout the left abdomen most focused in the left central abdomen) Extremity: Normal Inspection, No Pedal Edema Neurologic/Psychiatric: Alert, Oriented x3, No Motor/Sensory Deficits, Normal 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, 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 Skin: normal color, warm/dry Focused Exam Evaluation Lactate Level Laboratory Tests 05/14/17 18:47: Lactic Acid Level 4.06*H 05/14/17 21:05: Lactic Acid Level 4.45*H Lactic Acid Level Laboratory Tests Test 05/14/17 21:05 Lactic Acid Level 4.45 MMOL/L (0.50-2.00) *H Date of ETT Placement: Feb 11, 2016 Time of ETT Placement: 1341 Progress/Results/Core Measures Suspected Sepsis Recent Fever Within 48 Hours: Yes Infection Criteria Present: Suspected New Infection New/Unexplained Altered Menta: No Sepsis Screen: Possible Sepsis Risk Sepsis Diagnosis: SIRS Temperature:97.3 Pulse: 134 Respiratory Rate: 20 Laboratory Tests 05/14/17 18:17: White Blood Count 24.3H Blood Pressure 133 /111 Mean: 118 Laboratory Tests 05/14/17 18:47: Lactic Acid Level 4.06*H 05/14/17 21:05: Lactic Acid Level 4.45*H Laboratory Tests 05/14/17 18:17: Creatinine 1.72H, INR Comment 1.2, Platelet Count 453H, Total Bilirubin 0.4 05/14/17 21:21: Creatinine 1.06 05/14/17 23:25: Creatinine 0.97 Results/Orders Lab Results Laboratory Tests Test 05/14/17 18:17 05/14/17 18:19 05/14/17 18:47 05/14/17 20:11 Range/Units White Blood Count 24.3 H 4.3-11.0 10^3/uL Red Blood Count 4.67 4.35-5.85 10^6/uL Hemoglobin 13.4 11.5-16.0 G/DL Hematocrit 38 35-52 % Mean Corpuscular Volume 82 80-99 FL Mean Corpuscular Hemoglobin 29 25-34 PG Mean Corpuscular Hemoglobin Concent 35 32-36 G/DL Red Cell Distribution Width 14.6 H 10.0-14.5 % Platelet Count 453 H 130-400 10^3/uL Mean Platelet Volume 10.8 H 7.4-10.4 FL Neutrophils (%) (Auto) 84 H 42-75 % Lymphocytes (%) (Auto) 9 L 12-44 % Monocytes (%) (Auto) 7 0-12 % Eosinophils (%) (Auto) 0 0-10 % Basophils (%) (Auto) 0 0-10 % Neutrophils # (Auto) 20.3 H 1.8-7.8 X 10^3 Lymphocytes # (Auto) 2.2 1.0-4.0 X 10^3 Monocytes # (Auto) 1.8 H 0.0-1.0 X 10^3 Eosinophils # (Auto) 0.0 0.0-0.3 10^3/uL Basophils # (Auto) 0.1 0.0-0.1 10^3/uL Neutrophils % (Manual) 78 % Lymphocytes % (Manual) 12 % Monocytes % (Manual) 9 % Eosinophils % (Manual) 0 % Basophils % (Manual) 0 % Band Neutrophils 1 % Blood Morphology Comment NORMAL Prothrombin Time 15.0 H 12.2-14.7 SEC INR Comment 1.2 0.8-1.4 Activated Partial Thromboplast Time 26 24-35 SEC Sodium Level 123 *L 135-145 MMOL/L Potassium Level 4.7 3.6-5.0 MMOL/L Chloride Level 89 L 98-107 MMOL/L Carbon Dioxide Level 17 L 21-32 MMOL/L Anion Gap 17 H 5-14 MMOL/L Blood Urea Nitrogen 23 H 7-18 MG/DL Creatinine 1.72 H 0.60-1.30 MG/DL Estimat Glomerular Filtration Rate 31 BUN/Creatinine Ratio 13 Glucose Level 879 *H 70-105 MG/DL Calcium Level 9.9 8.5-10.1 MG/DL Total Bilirubin 0.4 0.1-1.0 MG/DL Aspartate Amino Transf (AST/SGOT) 16 5-34 U/L Alanine Aminotransferase (ALT/SGPT) 46 0-55 U/L Alkaline Phosphatase 111 40-136 U/L Total Protein 6.7 6.4-8.2 GM/DL Albumin 3.6 3.2-4.5 GM/DL Lipase 40 8-78 U/L Urine Color YELLOW Urine Clarity CLEAR Urine pH 7 5-9 Urine Specific [place] 1.010 L 1.016-1.022 Urine Protein 1+ H NEGATIVE Urine Glucose (UA) 4+ H NEGATIVE Urine Ketones NEGATIVE NEGATIVE Urine Nitrite POSITIVE H NEGATIVE Urine Bilirubin NEGATIVE NEGATIVE Urine Urobilinogen NORMAL NORMAL MG/DL Urine Leukocyte Esterase 1+ H NEGATIVE Urine RBC (Auto) 1+ H NEGATIVE Urine RBC 2-5 H /HPF Urine WBC 2-5 /HPF Urine Squamous Epithelial Cells 0-2 /HPF Urine Crystals NONE /LPF Urine Bacteria NONE /HPF Urine Casts NONE /LPF Urine Mucus NEGATIVE /LPF Urine Culture Indicated YES Lactic Acid Level 4.06 *H 0.50-2.00 MMOL/L Glucometer > 600 *H 70-110 MG/DL Test 05/14/17 21:05 05/14/17 21:11 05/14/17 21:21 05/14/17 22:22 Range/Units Lactic Acid Level 4.45 *H 0.50-2.00 MMOL/L Glucometer 318 H 286 H 70-110 MG/DL Sodium Level 135 135-145 MMOL/L Potassium Level 3.3 L 3.6-5.0 MMOL/L Chloride Level 103 98-107 MMOL/L Carbon Dioxide Level 20 L 21-32 MMOL/L Anion Gap 12 5-14 MMOL/L Blood Urea Nitrogen 20 H 7-18 MG/DL Creatinine 1.06 0.60-1.30 MG/DL Estimat Glomerular Filtration Rate 54 BUN/Creatinine Ratio 19 Glucose Level 274 H 70-105 MG/DL Calcium Level 8.4 L 8.5-10.1 MG/DL Magnesium Level 1.7 L 1.8-2.4 MG/DL Test 05/14/17 23:25 05/14/17 23:30 Range/Units Sodium Level 136 135-145 MMOL/L Potassium Level 3.6 3.6-5.0 MMOL/L Chloride Level 103 98-107 MMOL/L Carbon Dioxide Level 20 L 21-32 MMOL/L Anion Gap 13 5-14 MMOL/L Blood Urea Nitrogen 18 7-18 MG/DL Creatinine 0.97 0.60-1.30 MG/DL Estimat Glomerular Filtration Rate 59 BUN/Creatinine Ratio 19 Glucose Level 235 H 70-105 MG/DL Calcium Level 8.4 L 8.5-10.1 MG/DL Magnesium Level 1.7 L 1.8-2.4 MG/DL Glucometer 239 H 70-110 MG/DL Micro Results Microbiology 05/14/17 Influenza Types A,B Antigen (DESI) - Final, Complete My Orders Orders - MARY GIRALDO MD Cbc With Automated Diff (05/14/17 18:) Comprehensive Metabolic Panel (05/14/17 18:) Lactic Acid Analyzer (05/14/17 18:) Blood Culture (05/14/17:) Sputum Culture (05/14/17 18:) Ua Culture If Indicated (05/14/17 18:) Protime With Inr (05/14/17:) Partial Thromboplastin Time (05/14/17 18:) O2 (05/14/17:) Saline Lock/Iv-Start (05/14/17 18:) Saline Lock/Iv-Start (05/14/17 18:) Vital Signs Adult Sepsis Patie Q1H (05/14/17 18:28) Remove Rings In Anticipation O (05/14/17 18:) Influenza A And B Antigens (05/14/17 18:) Ondansetron Injection (Zofran Injectio (05/14/17 18:30) Chest Pa/Lat (2 View) (05/14/17 18:28) Ns Iv 1000 Ml (Sodium Chloride 0.9%) (05/14/17 18:28) Manual Differential (05/14/17 18:17) Lipase (05/14/17 18:53) Urine Culture (05/14/17 18:19) Insulin (Regular) Human (Humulin R (Per (05/14/17 19:30) Ns Iv 1000 Ml (Sodium Chloride 0.9%) (05/14/17 19:16) Ct Abdomen/Pelvis Wo (05/14/17 19:20) Piperacillin Sodium/Tazobactam (Zosyn Vi (05/14/17 19:30) Accucheck Stat ONCE (05/14/17 20:11) Insulin (Regular) Human (Humulin R (Per (05/14/17 20:15) Orphenadrine Injection (Norflex Injectio (05/14/17 21:15) Accucheck Stat ONCE (05/14/17 21:08) Basic Metabolic Panel (05/14/17 21:10) Magnesium (05/14/17 21:10) Ns (Ivpb) (Sodium Chloride 0.9% Ivpb Bag (05/14/17 22:30) / Ns W/Kcl 20 Meq/L (0.45% Sodium Chlo (05/14/17 22:30) Insulin (Regular) Human (Humulin R (Per (05/14/17 22:31) Medications Given in ED Current Medications Medications Dose Ordered Sig/Jamie Route Start Time Stop Time Status Last Admin Dose Admin Insulin Human Regular 10 unit ONCE ONCE IV 05/14/17 19:30 05/14/17 19:31 DC 05/14/17 19:25 10 UNIT Insulin Human Regular 10 unit ONCE ONCE IV 05/14/17 20:15 05/14/17 20:16 DC 05/14/17 20:27 10 UNIT Ondansetron HCl 8 mg ONCE ONCE IVP 05/14/17 18:30 05/14/17 18:31 DC 05/14/17 18:46 8 MG Piperacillin Sod/ Tazobactam Sod 4.5 gm/Sodium Chloride 100 ml @ 200 mls/hr ONCE ONCE IV 05/14/17 19:30 05/14/17 19:59 DC 05/14/17 20:28 200 MLS/HR Sodium Chloride 1,000 ml @ 0 mls/hr Q0M ONCE IV 05/14/17 18:28 05/14/17 18:31 DC 05/14/17 18:47 0 MLS/HR Sodium Chloride 1,000 ml @ 0 mls/hr Q0M ONCE IV 05/14/17 19:16 05/14/17 19:17 DC 05/14/17 19:25 0 MLS/HR Vital Signs/I&O Vital Sign - Last 12Hours 05/14/17 05/14/17 05/14/17 05/14/17 18:21 18:21 22:10 23:04 Temp 97.3 98.0 Pulse 134 108 104 Resp 20 22 B/P (MAP) 133/111 (118) 122/69 Pulse Ox 94 97 96 98 O2 Delivery Nasal Cannula Nasal Cannula O2 Flow Rate 2.00 2.00 Capillary Refill : Less Than 3 Seconds Blood Pressure Mean: 118 Progress Note #1: Time: 18:46 Progress Note Patient was found to be significantly tachycardic. Sepsis was suspected. The sepsis order set is in progress. IV fluids have been initiated. Zofran was given for nausea. Progress Note #2: Time: 19:18 Progress Note Patient was found to have hyperglycemia with a blood sugar greater than 800. 10 units of insulin and a second liter of IV fluids were ordered. So far no definite source of infection has been identified. I will add a CT of the abdomen and pelvis without contrast to further evaluate the abdominal pain. Progress Note #3: Time: 21:12 Progress Note Patient's repeat blood sugar after the 10 units of insulin was still too high to read on the meter. An additional 10 units of insulin was administered. Blood sugar at this time is now 318. We are awaiting transfer to the ICU. A second set of chemistry labs has been ordered. Patient did receive her first dose of Zosyn. Norflex was given for cramping of the lower extremities. Diagnostic Imaging Diagonstic Imaging: Xray Plain Films/CT/US/NM/MRI: chest Comments Chest x-ray viewed by me and report reviewed. See report below: NAME: [facility] REC#: [id number] PT STATUS: REG ER : 1960 PHYSICIAN: MARY GIRALDO MD ADMIT DATE: 05/14/17/ER Draft Date of Exam:05/14/17 CHEST PA/LAT (2 VIEW) INDICATION: Short of air, pneumonia EXAMINATION: PA and lateral views of the chest. FINDINGS: The heart size and vascularity are normal. Lungs are clear. There is no effusion. There is no acute bony abnormality. IMPRESSION: No acute abnormality is seen. There is no change from 05/06/17. Dictated on workstation # [id number] Dict: 05/14/171909 Trans: 05/14/171911 ISA [id number] Interpreted by: ANA MALDONADO MD Diagonstic Imaging: CT Plain Films/CT/US/NM/MRI: abdomen, pelvis Comments CT abdomen and pelvis viewed by me and report reviewed. See report below: [facility] [id number] PT STATUS: REG ER : 1960 PHYSICIAN: MARY GIRALDO MD ADMIT DATE: 05/14/17/ER Draft Date of Exam:05/14/17 CT ABDOMEN/PELVIS WO PROCEDURE: CT abdomen and pelvis without contrast. TECHNIQUE: Multiple contiguous axial images were obtained through the abdomen and pelvis without the use of intravenous contrast. INDICATION: Nausea. Elevated white count There are diffuse fatty changes of the liver with no focal abnormality of the liver seen. The gallbladder is absent. The bile ducts are nondilated. The spleen, pancreas and adrenals are normal. The kidneys, ureters and bladder are normal. No acute bowel abnormality is seen. There is no free intraperitoneal air or fluid. There is no acute bony abnormality. IMPRESSION: Fatty liver. No acute abnormality is seen. Dictated on workstation # [id number] Dict: 05/14/171951 Trans: 05/14/171955 ISA [id number] Interpreted by: ANA MALDONADO MD Departure Communication (Admissions) Time/Spoke to Admitting Phy: 20:15 Communication Case was reviewed with Dr. Chavez who agrees with admission to the ICU. She requests the DKA order set. Patient's leukocytosis and lactic acidosis or felt to be due to dehydration and DKA rather than infection. No obvious source of infection was identified on workup. Urine was nitrite positive but there was no significant presence of WBC or bacteria. Since her lab values and symptoms can be explained by DKA and no source of infection was definitively identified, she is not to being diagnosed with sepsis. However, as a precaution empiric antibiotics are being administered with Zosyn and vancomycin. Urine and blood cultures are being processed. Impression Impression: Primary Impression: DKA (diabetic ketoacidoses) Qualified Codes: E13.10 - Other specified diabetes mellitus with ketoacidosis without coma Additional Impressions: Acute renal failure Qualified Codes: N17.9 - Acute kidney failure, unspecified Left sided abdominal pain Disposition: 09 ADMITTED INPATIENT Condition: Improved Admissions Decision to Admit Reason: Admit from ER (General) Decision to Admit/Date: May 14, 2017 Time/Decision to Admit Time: 18:30 Departure-Patient Inst. Referrals: ADRIANNA HAND MD (PCP/Family) Primary Care Physician MARY GIRALDO MD May 14, 2017 18:47
[2017-05-14 18:53] LABS: ALBUMIN 3.6 GM/DL (3.2-4.5); BILIRUBIN,TOTAL 0.4 MG/DL (0.1-1.0); CALCIUM 9.9 MG/DL (8.5-10.1); CREATININE SERUM 1.72 MG/DL (0.60-1.30); POTASSIUM 4.7 MMOL/L (3.6-5.0); TOTAL PROTEIN 6.7 GM/DL (6.4-8.2)
[2017-05-14 18:55] LABS: BILIRUBIN,URINE NEGATIVE (NEGATIVE); CLARITY,URINE CLEAR; COLOR,URINE YELLOW; GLUCOSE, URINE (UA) 4+ (NEGATIVE); KETONES,URINE NEGATIVE (NEGATIVE); LEUKOCYTE ESTERASE ,URINE 1+ (NEGATIVE); NITRITE,URINE POSITIVE (NEGATIVE); PH,URINE 7 (5-9); PROTEIN,URINE 1+ (NEGATIVE); UROBILINOGEN,URINE NORMAL (NORMAL)
[2017-05-14 18:58] LABS: BAND NEUTROPHILS 1 %; BASOPHILS % (MANUAL) 0 %; EOSINOPHILS % (MANUAL) 0 %; LYMPHOCYTES % (MANUAL) 12 %; MONOCYTES % (MANUAL) 9 %; NEUTROPHILS % (MANUAL) 78 %; RBC MORPH NORMAL
[2017-05-14 19:02] LABS: SQUAMOUS EPITHELIAL CELL,UR 0-2 /HPF
--- NOTE | 2017-05-14 19:12 | Diagnostic Imaging Report ---
INDICATION: Short of air, pneumonia EXAMINATION: PA and lateral views of the chest. FINDINGS: The heart size and vascularity are normal. Lungs are clear. There is no effusion. There is no acute bony abnormality. IMPRESSION: No acute abnormality is seen. There is no change from 05/06/17. Dictated by: Dictated on workstation # [id number]
[2017-05-14] MEDS ORDERED: inSUlin (REGULAR) HUMAN 1 UNIT/0.01 ML (CHARGE PER UNIT) IV ONE ×2 (19:30→20:15)
[2017-05-14] MEDS ORDERED: PIPERACILLIN SODIUM/TAZOBACTAM 4.5 GM in NS (IVPB) 100 ML IV ONE (19:30)
--- NOTE | 2017-05-14 19:57 | Diagnostic Imaging Report ---
PROCEDURE: CT abdomen and pelvis without contrast. TECHNIQUE: Multiple contiguous axial images were obtained through the abdomen and pelvis without the use of intravenous contrast. INDICATION: Nausea. Elevated white count There are diffuse fatty changes of the liver with no focal abnormality of the liver seen. The gallbladder is absent. The bile ducts are nondilated. The spleen, pancreas and adrenals are normal. The kidneys, ureters and bladder are normal. No acute bowel abnormality is seen. There is no free intraperitoneal air or fluid. There is no acute bony abnormality. IMPRESSION: Fatty liver. No acute abnormality is seen. Dictated by: Dictated on workstation # [id number]
[2017-05-14] MEDS ORDERED: ORPHENADRINE 60 MG/2 ML (NORFLEX) AMP IV ONE (21:15)
[2017-05-14 22:14] LABS: CALCIUM 8.4 MG/DL (8.5-10.1); CREATININE SERUM 1.06 MG/DL (0.60-1.30); MAGNESIUM 1.7 MG/DL (1.8-2.4); POTASSIUM 3.3 MMOL/L (3.6-5.0)
[2017-05-14 22:30] VITALS: BP 108/58
[2017-05-14] MEDS ORDERED: 1/2 NS W/KCL 20 MEQ/L 1,000 ML IV ONE (22:30)
[2017-05-14] MEDS ORDERED: NS (IVPB) 100 ML ONE (22:30)
[2017-05-14] MEDS ORDERED: inSUlin (REGULAR) HUMAN 1 UNIT/0.01 ML (CHARGE PER UNIT) ONE (22:31)
[2017-05-14] MEDS ORDERED: REGULAR inSUlin DRIP 250 UNITS/NS 250 ML IV SCH ×2 (22:45)
[2017-05-14] MEDS ORDERED: VANCOMYCIN 1 GM/NS 250 ML IVPB IV SCH ×2 (22:45)
[2017-05-14] MEDS ORDERED: ONDANSETRON 4 MG/2 ML (SDV) Z0FRAN IV PRN (22:45)
[2017-05-14] MEDS: 1/2 NS W/KCL 20 MEQ/L 1,000 ML IV SCH (22:45)
[2017-05-14 23:00] VITALS: BP 116/74
[2017-05-14 23:04] VITALS: BP 97/71
[2017-05-14] MEDS ORDERED: RT-ALBUTEROL/IPRATROPIUM 3 ML (DUONEB) VIAL INH PRN (23:15)
[2017-05-14 23:30] VITALS: BP 108/74
[2017-05-14] MEDS: D5 1/2 NS W/KCL 20 MEQ/L 1,000 ML IV SCH (23:30)
[2017-05-14 23:47] LABS: CALCIUM 8.4 MG/DL (8.5-10.1); CREATININE SERUM 0.97 MG/DL (0.60-1.30); MAGNESIUM 1.7 MG/DL (1.8-2.4); POTASSIUM 3.6 MMOL/L (3.6-5.0)
[2017-05-15] VITALS (26 sets, daily range): BP systolic 100–140; BP diastolic 48–84
[2017-05-15] MEDS ORDERED: CATHETER FLUSH 10 ML SYR IV PRN (01:30)
[2017-05-15] MEDS: PIPERACILLIN SODIUM/TAZOBACTAM 4.5 GM in NS (IVPB) 100 ML IV SCH ×3 (01:59→17:14)
[2017-05-15] MEDS: D5 1/2 NS W/KCL 20 MEQ/L 1,000 ML IV SCH (02:45)
[2017-05-15] MEDS: 1/2 NS W/KCL 20 MEQ/L 1,000 ML IV SCH (02:45)
[2017-05-15] MEDS ORDERED: DEXTROSE 10% IV SOLUTION 1,000 ML IV ONE (03:16)
[2017-05-15] MEDS ORDERED: 1/2 NS IV SOLUTION 1,000 ML IV SCH (03:37)
[2017-05-15] MEDS ORDERED: DEXTROSE 10% IV SOLUTION 1,000 ML IV SCH (03:37)
[2017-05-15] MEDS ORDERED: D5 1/2 NS 1000 ML IV SOLUTION 1,000 ML IV SCH (03:45)
[2017-05-15 03:56] LABS: BASOPHILS % (AUTO) 0 % (0-10); EOSINOPHILS # (AUTO) 0.1 10^3/uL (0.0-0.3); EOSINOPHILS % (AUTO) 1 % (0-10); HEMATOCRIT 32 % (35-52); HEMOGLOBIN 10.9 G/DL (11.5-16.0); LYMPHOCYTES # (AUTO) 2.8 X 10^3 (1.0-4.0); LYMPHOCYTES % (AUTO) 16 % (12-44); MEAN CORPUSCULAR HEMOGLOBIN 29 PG (25-34); MEAN CORPUSCULAR HGB CONC 34 G/DL (32-36); MEAN CORPUSCULAR VOLUME 84 FL (80-99); MEAN PLATELET VOLUME 10.2 FL (7.4-10.4); MONOCYTES # (AUTO) 1.2 X 10^3 (0.0-1.0); MONOCYTES % (AUTO) 7 % (0-12); NEUTROPHILS % (AUTO) 76 % (42-75); PLATELET COUNT 311 10^3/uL (130-400); RED BLOOD COUNT 3.83 10^6/uL (4.35-5.85); RED CELL DISTRIBUTION WIDTH 14.4 % (10.0-14.5); WHITE BLOOD COUNT 17.2 10^3/uL (4.3-11.0)
[2017-05-15 04:03] LABS: BUN/CREATININE RATIO 16; CALCIUM 8.1 MG/DL (8.5-10.1); CARBON DIOXIDE 20 MMOL/L (21-32); CHLORIDE 106 MMOL/L (98-107); CREATININE SERUM 0.87 MG/DL (0.60-1.30); GFR ESTIMATED > 60; GLUCOSE 123 MG/DL (70-105); MAGNESIUM 1.8 MG/DL (1.8-2.4); PHOSPHORUS 2.3 MG/DL (2.3-4.7); POTASSIUM 4.1 MMOL/L (3.6-5.0); SODIUM 137 MMOL/L (135-145)
[2017-05-15] MEDS: MAGNESIUM 1 GM/100 ML IVPB 100 ML IV SCH (04:33)
[2017-05-15] MEDS: KCL 20 MEQ TAB (K-DUR) PO SCH (04:34)
[2017-05-15] MEDS: POTASSIUM CL 10MEQ/50ML IVPB 50 ML IV SCH (04:34)
--- NOTE | 2017-05-15 05:16 | Pulmonary Consultation ---
History of Present Illness History of Present Illness Date of Consultation 05/15/17 05:11 Time Seen by Provider: 05:11 Date of Admission History of Present Illness 56yo with hx of pancreatis, COPD, and recent hospitalization for pneumonia presented to ED secondary to nausea. Pt was recently on abx as out patient for cellulitis. Pt has hx of multiple UTIs and has grown out Klebsiella. PT is on chronic prednisone of 10mg daily for RA. Pt has no hx of DM. I am consulted for ICU management. Allergies and Home Medications Allergies Coded Allergies: sulfamethoxazole (Verified Allergy, Intermediate, VOMITTING/MIGRAINE, ) trimethoprim (Verified Allergy, Intermediate, VOMITTING/MIGRAINE, 03/14/16 ) codeine (Unverified Allergy, Mild, TAKES HYDROCODONE AT HOME, 07/04/14) pentazocine (Unverified Adverse Reaction, Mild, N/V, HEAD ACHE, 07/04/14) Home Medications Acetaminophen 500 Mg Tablet, 1,000 MG PO Q6H PRN for PAIN-MILD, (Reported) Albuterol Sulfate 18 Gm Hfa.aer.ad, 2 PUFF INH Q4H PRN for SHORTNESS OF BREATH, (Reported) Aspirin 81 Mg Tablet.dr, 81 MG PO HS, (Reported) Atorvastatin Calcium 20 Mg Tablet, 20 MG PO HS, (Reported) Cefdinir 300 Mg Capsule, 300 MG PO BID, #4 Prescribed by: TYSHAWN VOSS on 05/04/17 1245 Cefdinir 300 Mg Capsule, 300 MG PO BID, #10 Ref 0 Prescribed by: MURALI TRIVEDI on 05/06/172224 Clindamycin HCl 300 Mg Capsule, 300 MG PO QID, #12 Ref 0 Prescribed by: MURALI TRIVEDI on 05/06/175 Cyclobenzaprine HCl 10 Mg Tablet, 10 MG PO TID PRN for MUSCLE SPASMS, (Reported) Cyclosporine 1 Each Droperette, 1 DROP OU BID, (Reported) Fenofibrate,Micronized 134 Mg Capsule, 134 MG PO HS, (Reported) Gabapentin 300 Mg Capsule, 300 MG PO HS, (Reported) Hydrocodone Bit/Acetaminophen 1 Tab Tab, 1 TAB PO Q4H PRN for PAIN-MODERATE, #15 Prescribed by: TYSHAWN VOSS on 05/04/17 1245 Ibuprofen 800 Mg Tablet, 800 MG PO Q8H PRN for PAIN-MILD, (Reported) Ipratropium/Albuterol Sulfate 3 Ml Ampul.neb, 3 ML INH RTQID for 7 Days Prescribed by: TYSHAWN VOSS on 05/04/17 1245 Lansoprazole 30 Mg Capsule.dr, 30 MG PO HS, (Reported) Metoprolol Tartrate 25 Mg Tablet, 12.5 MG PO BID, (Reported) LAST FILLED #90 8-28-17 TAKES 1/2 OF A (25 MG) TABLET Nitroglycerin 0.4 Mg Tab.subl, 0.4 MG SL UD PRN for CHEST PAIN, (Reported) Nystatin 100,000 Unit/1 Ml Oral.susp, 5 ML PO QID, #200 Ref 0 Prescribed by: MURALI TRIVEDI on 05/06/172224 Ondansetron HCl 4 Mg Tablet, 4 MG PO Q6H PRN for NAUSEA/VOMITING-1ST LINE, ( Reported) Phenazopyridine HCl 100 Mg Tablet, 100 MG PO Q8H PRN for pain, #14 Ref 0 Prescribed by: MURALI TRIVEDI on 05/06/172224 Prednisone 10 Mg Tab.ds.pk, 10 MG PO DAILY, #21 Take 6 tabs(60mg)daily,decrease by 1 tab(10MG)daily. Prescribed by: TYSHAWN VOSS on 05/04/17 124 Rivaroxaban 15 Mg Tablet, 15 MG PO HS, (Reported) Venlafaxine HCl 75 Mg Cap.er.24h, 75 MG PO HS, (Reported) Past Rqavkth-Tmtppr-Wtbkmo Hx Patient Social History Alcohol Use: Denies Use Recreational Drug Use: No (ETOH, THC) Smoking Status: Former Smoker Type Used: Cigarettes Former Smoker, Quit: May 01, 2017 2nd Hand Smoke Exposure: No Recent Foreign Travel: No Contact w/Someone Who Travel: No Recent Infectious Disease Expo: No Recent Hopitalizations: Yes Physical Abuse: No Sexual Abuse: No Mistreated: No Fear: No Immunizations Up To Date Tetanus Booster (TDap): More than 5yrs PED Vaccines UTD: No Date of Pneumonia Vaccine: May 01, 2015 Date of Influenza Vaccine: Jan 01, 2017 Seasonal Allergies Seasonal Allergies: Yes Surgeries History of Surgeries: Yes Surgeries: Abdominal, Appendectomy, Bowel Surgery, Breast, Cardiac, Coronary Stent, Eye Surgery, Gallbladder, Hysterectomy, Oophorectomy, Renal Respiratory History of Respiratory Disorde: Yes (RESPIRATORY FAILURE ON VENT X 1 ) Respiratory Disorders: Asthma, Pneumonia, Chronic Bronchitis, Pulmonary Embolism, COPD Currently Using CPAP: No Currently Using BIPAP: No Cardiovascular History of Cardiac Disorders: Yes (STENT PLACED OCTOBER 2014 AFTER [place]) Cardiac Disorders: Coronary Artery Disease, Heart Attack, High Cholesterol, Hypertension Neurological History of Neurological Disord: Yes Neurological Disorders: Seizure Disorder 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 System Hx 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 Disorders: Yes (CERVICAL DYSPLASIA--S/P HYST/BSO) Sexually Transmitted Disease: No HIV/AIDS: No 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 Genitourinary History of Genitourinary Disor: Yes Genitourinary Disorders: Bladder Infection, Kidney Stones, Renal Failure Gastrointestinal History of Gastrointestinal Di: Yes Gastrointestinal Disorders: Gastroesophageal Reflux, Diverticulosis, Irritable Bowel Musculoskeletal History of Musculoskeletal Dis: Yes Musculoskeletal Disorders: Arthritis, Fibromyalgia, Rheumatoid Arthritis Endocrine History of Endocrine Disorders: No HEENT History of HEENT Disorders: Yes HEENT Disorders: Glaucoma Loss of Vision: Denies Hearing Impairment: Denies Cancer History of Cancer: No Psychosocial History of Psychiatric Problem: Yes Behavioral Health Disorders: Anxiety, Bipolar, Depression Suicide Risk Score: 0 Integumentary History of Skin or Integumenta: Yes (SHINGLES) Blood Transfusions History of Blood Disorders: No Adverse Reaction to a Blood Tr: No Family Medical History Significant Family History: Cancer, Other Conditions/Hx Family Medial History: CANCER 19 MOTHER (PATIENT DOES NOT KNOW LOCATION) Review of Systems Time Seen by Provider: 05:40 Constitutional: Fever, Chills, Sweats, Weakness, Malaise Eyes: No: Pain, Vision change, Conjunctivae inflammation, Eyelid inflammation, Other, Redness ENT: No: Ear pain, Ear discharge, Nose pain, Nose discharge, Nose congestion, Mouth pain, Mouth swelling, Throat pain, Throat swelling, Other Respiratory: Cough, Dry, Shortness of breath, SOB with excertion, No: Wheezing Cardiovascular: Palpitations, Paroxysmal Noc. Dyspnea, Lt Headedness Gastrointestinal: Nausea, Abdominal Pain, No: Diarrhea, Constipation Genitourinary: No Dysuria, No Frequency, No Incontinence, No Hematuria, No Retention, No Other Musculoskeletal: shoulder pain, back pain Neurological: Weakness, Incoordination Exam Exam Vital Signs Date Time Temp Pulse Resp B/P (MAP) Pulse Ox O2 Delivery O2 Flow Rate FiO2 2/15/18 04:00 93 19 116/67 (83) 98 Nasal Cannula 2.00 05/15/17 03:53 97 Nasal Cannula 2.00 05/15/17 03:00 98.0 05/15/17 03:00 96 18 111/72 (85) 97 Nasal Cannula 2.00 05/15/17 02:02 97.3 05/15/17 02:00 101 20 114/72 (86) 97 Nasal Cannula 2.00 05/15/17 01:48 95 Nasal Cannula 2.00 05/15/17 01:44 99.1 05/15/17 01:30 102 18 115/69 (84) 97 Nasal Cannula 2.00 05/15/17 01:00 102 21 127/61 (83) 97 Nasal Cannula 2.00 05/15/17 01:00 103 05/15/17 00:30 106 20 116/73 (87) 98 Nasal Cannula 2.00 05/15/17 00:00 97 Nasal Cannula 2.00 05/15/17 00:00 106 22 100/61 (74) 98 Nasal Cannula 2.00 05/14/17 23:30 113 38 108/74 (85) 96 Nasal Cannula 2.00 05/14/17 23:04 104 98 05/14/17 23:00 106 13 116/74 (88) 96 Nasal Cannula 2.00 05/14/17 22:30 105 21 108/58 (75) 97 Nasal Cannula 2.00 05/14/17 22:18 107 05/14/17 22:10 98.0 108 22 122/69 96 Nasal Cannula 2.00 05/14/17 18:21 97 Nasal Cannula 2.00 05/14/17 18:21 97.3 134 20 133/111 (118) 94 I & O 05/15/17 07:00 Intake Total 2560 ml Output Total 0 ml Balance 2560 ml General Appearance: WD/WN, Mild Distress HEENT: PERRL/EOMI, Normal ENT Inspection, Other (oropharynx very dry) Neck: Normal Inspection Respiratory: Lungs Clear, Normal Breath Sounds, No Accessory Muscle Use, No Respiratory Distress Cardiovascular: No Edema, No Murmur, Tachycardia Capillary Refill: Less Than 3 Seconds Extremity: Normal Inspection, No Pedal Edema Neurologic/Psychiatric: Alert, Oriented x3, No Motor/Sensory Deficits, Normal 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, 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 Norm as Tested Results Lab Laboratory Tests 05/14/17 18:17 05/14/17 21:21 05/14/17 23:25 05/15/17 03:05 Assessment/Plan Assessment/Plan UTI with severe sepsis -Continue IVF at 150 -pt has received 3 liters of IVF -Continue zosyn, vanco -Await pena cultures HHNK-- no ketones in urine and no hx of DM -D/C insulin gtt -start Levemir 10units -SSI -Check HbA1C RA- pt is on chronic steroids prednisone 10mg daily Dehydration Metabolic lactic acidosis 255 Clinical Quality Measures DVT/VTE Risk/Contraindication: Risk Factor Score Per Nursin RFS Level Per Nursing on Admit: 4+=Very High MAXIMUS FISHER DO May 15, 2017 05:16
[2017-05-15] MEDS ORDERED: NS IV 1000 ML 1,000 ML ONE (05:26)
[2017-05-15] MEDS ORDERED: inSUlin DETERMIR 1 UNIT/0.01 ML (LEVEMIR) CHARGE PER UNIT SQ ONE (05:30)
[2017-05-15] MEDS: NS IV 1000 ML 1,000 ML IV SCH ×3 (05:58→17:14)
[2017-05-15] MEDS: inSUlin (REGULAR) HUMAN 1 UNIT/0.01 ML (CHARGE PER UNIT) SC SCH ×4 (05:58→21:34)
[2017-05-15] MEDS: RT-ALBUTEROL/IPRATROPIUM 3 ML (DUONEB) VIAL INH SCH ×4 (07:04→20:03)
[2017-05-15 08:01] LABS: BUN/CREATININE RATIO 13; CARBON DIOXIDE 21 MMOL/L (21-32); CHLORIDE 107 MMOL/L (98-107); CREATININE SERUM 0.95 MG/DL (0.60-1.30); GFR ESTIMATED > 60; GLUCOSE 271 MG/DL (70-105); POTASSIUM 4.3 MMOL/L (3.6-5.0); SODIUM 137 MMOL/L (135-145)
--- NOTE | 2017-05-15 08:02 | Diagnostic Imaging Report ---
INDICATION: Diabetic ketoacidosis Portable chest 3:40 AM Heart size and pulmonary vascularity are normal. There are no consolidating alveolar infiltrates. There are no effusions or pneumothoraces. IMPRESSION: No acute abnormality seen in the chest Dictated by: Dictated on workstation # [id number]
[2017-05-15] MEDS ORDERED: NITROGLYCERIN 0.4 MG SL TABS BTL 25'S SL PRN (08:45)
[2017-05-15] MEDS: VANCOMYCIN 1250 MG/NS 250 ML IVPB IV SCH ×4 (08:47→21:19)
[2017-05-15] MEDS ORDERED: PRD10T PO (08:52)
--- NOTE | 2017-05-15 10:14 | History & Physical-Hospitalist ---
HPI History of Present Illness: HPI/Chief Complaint CC: Severe hyperglycemia without history of diabetes with sepsis from UTI HPI: This is a 56-year-old white female known to me from multiple hospital stays at [facility] due to most recent pneumonia completed IV antibiotics on swing bed status 2 weeks ago who presented to the emergency room with altered mental status found to have blood sugar of 879 and acute renal insufficiency with creatinine of 1.7. UA showed the source of infection she was placed on empiric wide spectrum antibiotics and obtain cultures prior to antibiotic administration. She was given aggressive IV fluids insulin drip was started due to the severity of the hyperglycemia and has since weaned off the insulin drip placed on subcutaneous insulin and will be monitor closely in the ICU today. Currently she is doing well reports a headache and I have reconciled her home medications and she is requesting hydrocodone. Hga1c is pending. Source: patient Exam Limitations: no limitations Date Seen 05/15/17 Time Seen by Provider: 09:15 Attending Physician Radha Voss DO PCP Leif Arora MD Referring Physician Date of Admission May 14, 2017 at 20:53 Home Medications & Allergies Home Medications Reviewed patient Home Medication Reconciliation Form Allergies Allergies Coded Allergies sulfamethoxazole (Verified Allergy, Intermediate, VOMITTING/MIGRAINE, 03/14/16 ) trimethoprim (Verified Allergy, Intermediate, VOMITTING/MIGRAINE, 03/14/16) codeine (Unverified Allergy, Mild, TAKES HYDROCODONE AT HOME, 07/04/14) pentazocine (Unverified Adverse Reaction, Mild, N/V, HEAD ACHE, 07/04/14) Past Vdebkwp-Ezibye-Uturkd Hx Patient Social History Marrital Status: single Alcohol Use: Denies Use Recreational Drug Use: No (ETOH, THC) Smoking Status: Former Smoker Former Smoker, Quit: May 01, 2017 Type Used: Cigarettes 2nd Hand Smoke Exposure: No Physical Abuse Screen: No Sexual Abuse: No Recent Foreign Travel: No Contact w/other who traveled: No Recent Hopitalizations: Yes Recent Infectious Disease Expo: No Immunizations Up To Date Tetanus Booster (TDap): More than 5yrs Pediatric: No Date of Pneumonia Vaccine: May 01, 2015 Date of Influenza Vaccine: Jan 01, 2017 Seasonal Allergies Seasonal Allergies: Yes Surgeries Yes Abdominal, Appendectomy, Bowel Surgery, Breast, Cardiac, Coronary Stent, Eye Surgery, Gallbladder, Hysterectomy, Oophorectomy, Renal Respiratory Yes (RESPIRATORY FAILURE ON VENT X 1 ) COPD Currently Using CPAP: No Currently Using BIPAP: No Cardiovascular Yes (STENT PLACED OCTOBER 2014 AFTER [place]) Coronary Artery Disease, Heart Attack, High Cholesterol, Hypertension Neurological Yes Seizure Disorder 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 System Hx 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 Disorders: Yes (CERVICAL DYSPLASIA--S/P HYST/BSO) Sexually Transmitted Disease: No HIV/AIDS: No 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 Genitourinary Yes Bladder Infection, Kidney Stones, Renal Failure Gastrointestinal Yes Gastroesophageal Reflux, Diverticulosis, Irritable Bowel Musculoskeletal Yes Arthritis, Fibromyalgia, Rheumatoid Arthritis Endocrine History of Endocrine Disorders: No HEENT History of HEENT Disorders: Yes HEENT Disorders: Glaucoma Loss of Vision: Denies Hearing Impairment: Denies Cancer No Psychosocial History of Psychiatric Problem: Yes Behavioral Health Disorders: Anxiety, Bipolar, Depression Integumentary History of Skin or Integumenta: Yes (SHINGLES) Blood Transfusions History of Blood Disorders: No Adverse Reaction to a Blood Tr: No Family Medical History Significant Family History: Cancer, Other Conditions/Hx Family Hx: CANCER 19 MOTHER (PATIENT DOES NOT KNOW LOCATION) Review of Systems Constitutional: see HPI, dizziness, weakness EENTM: no symptoms reported Respiratory: cough, dyspnea on exertion, short of breath Cardiovascular: no symptoms reported Gastrointestinal: no symptoms reported Genitourinary: decreased output, frequency Musculoskeletal: back pain Skin: no symptoms reported Psychiatric/Neurological: Depressed All Other Systems Reviewed Negative Unless Noted: Yes Physical Exam Physical Exam Vital Signs Vital Signs - First Documented 05/14/17 18:21 Temp 97.3 Pulse 134 Resp 20 B/P (MAP) 133/111 (118) Pulse Ox 94 O2 Delivery Nasal Cannula O2 Flow Rate 2.00 Capillary Refill : Less Than 3 Seconds General Appearance: No Apparent Distress, WD/WN, Chronically ill, Obese Eyes: Bilateral Eye Normal Inspection, Bilateral Eye PERRL HEENT: PERRL/EOMI, Normal ENT Inspection, Pharynx Normal Neck: Full Range of Motion, Normal Inspection, Non Tender, Supple, Carotid Bruit Respiratory: Chest Non Tender, Lungs Clear, Normal Breath Sounds, No Accessory Muscle Use, No Respiratory Distress Cardiovascular: Regular Rate, Rhythm, No Edema, No Gallop, No JVD, No Murmur, Normal Peripheral Pulses Gastrointestinal: Normal Bowel Sounds, No Organomegaly, No Pulsatile Mass, Non Tender, Soft Back: Normal Inspection, No CVA Tenderness, No Vertebral Tenderness Extremity: Normal Capillary Refill, Normal Inspection, Normal Range of Motion, Non Tender, No Calf Tenderness, No Pedal Edema Neurologic/Psychiatric: Alert, Oriented x3, No Motor/Sensory Deficits, Depressed Affect Skin: Normal Color, Warm/Dry Lymphatic: No Adenopathy Results Results/Procedures Lab Laboratory Tests 05/14/17 18:17 05/14/17 21:21 05/14/17 23:25 05/15/17 03:05 05/15/17 07:40 Assessment/Plan Admission Diagnosis Assessment: Sepsis due to UTI placed on empiric antibiotics Severe hyperglycemia requiring insulin drip with small decrease in bicarbonate New onset diabetes hemoglobin A1c is pending Severe left main CAD managed by Dr. Dobbins Severe COPD oxygen dependent recent pneumonia completed Rocephin and Zithromax treatment UTI's Assessment and Plan Plan: Subcutaneous insulin with sliding scale Antibiotics IV fluids Appreciate Dr. Dobbins and Dr. Pearce consultations Reconcile all home meds held unnecessary meds Pain control Clinical Quality Measures DVT/VTE Risk/Contraindication: Risk Factor Score Per Nursin RFS Level Per Nursing on Admit: 4+=Very High RADHA VOSS DO May 15, 2017 10:14
[2017-05-15] MEDS ORDERED: CYCLOBENZAPRINE 10 MG (FLEXERIL) TAB PO PRN (10:15)
--- NOTE | 2017-05-15 12:02 | Consultation-Cardiology ---
HPI-Cardiology Cardiology Consultation Date of Consultation 05/15/17 Date of Admission Time Seen by Provider: 08:30 Indication: chest pain HPI 56 years old lady with extensive cardiac history, history of coronary artery disease. Admitted to the hospital for DKA and UTI with sepsis. Has been treated and improving slowly. Started having chest pain this morning, described it as dull in nature in the retrosternal area radiating all over her chest. Denied any palpitation, denied any syncope or near syncopal episode, patient is fairly lethargic. Still having elevated white count. Receiving IV fluid and antibiotics. Her DKA is being managed by the primary team Home Medications & Allergies Allergies: Coded Allergies: sulfamethoxazole (Verified Allergy, Intermediate, VOMITTING/MIGRAINE, ) trimethoprim (Verified Allergy, Intermediate, VOMITTING/MIGRAINE, 03/14/16 ) codeine (Unverified Allergy, Mild, TAKES HYDROCODONE AT HOME, 07/04/14) pentazocine (Unverified Adverse Reaction, Mild, N/V, HEAD ACHE, 07/04/14) Home Medication List Reviewed: Yes [id number]-Hnnqod Hx Patient Social History Marital Status: single Alcohol Use: Denies Use Recreational Drug Use: No (ETOH, THC) Smoking Status: Former Smoker Type Used: Cigarettes 2nd Hand Smoke Exposure: No Recent Foreign Travel: No Recent Infectious Disease Expo: No Recent Hopitalizations: Yes Physical Abuse Screen: No Sexual Abuse: No Immunizations Up To Date Tetanus Booster (TDap): More than 5yrs Date of Pneumonia Vaccine: May 01, 2015 Date of Influenza Vaccine: Jan 01, 2017 Past Medical History Past medical history as discussed below Family Medical History Significant Family History: Cancer, Other Conditions/Hx Family History: CANCER 19 MOTHER (PATIENT DOES NOT KNOW LOCATION) Constitutional: see HPI, malaise, weakness EENTM: see HPI, no symptoms reported Respiratory: see HPI, No cough, dyspnea on exertion, No hemoptysis, No orthopnea, No phlegm, short of breath, No stridor, No wheezing, No other Cardiovascular: see HPI, chest pain, edema, No Hx of Intervention, No syncope, No vascular heart diseas, No other Gastrointestinal: RUQ, see HPI, dysphagia Genitourinary: no symptoms reported, see HPI Musculoskeletal: no symptoms reported, see HPI Skin: no symptoms reported, see HPI Psychiatric/Neurological: No Symptoms Reported, See HPI Reviewed Test Results Reviewed Test Results Lab Laboratory Tests Test 05/14/17 18:17 05/14/17 18:19 05/14/17 18:47 05/14/17 20:11 Range/Units White Blood Count 24.3 H 4.3-11.0 10^3/uL Red Blood Count 4.67 4.35-5.85 10^6/uL Hemoglobin 13.4 11.5-16.0 G/DL Hematocrit 38 35-52 % Mean Corpuscular Volume 82 80-99 FL Mean Corpuscular Hemoglobin 29 25-34 PG Mean Corpuscular Hemoglobin Concent 35 32-36 G/DL Red Cell Distribution Width 14.6 H 10.0-14.5 % Platelet Count 453 H 130-400 10^3/uL Mean Platelet Volume 10.8 H 7.4-10.4 FL Neutrophils (%) (Auto) 84 H 42-75 % Lymphocytes (%) (Auto) 9 L 12-44 % Monocytes (%) (Auto) 7 0-12 % Eosinophils (%) (Auto) 0 0-10 % Basophils (%) (Auto) 0 0-10 % Neutrophils # (Auto) 20.3 H 1.8-7.8 X 10^3 Lymphocytes # (Auto) 2.2 1.0-4.0 X 10^3 Monocytes # (Auto) 1.8 H 0.0-1.0 X 10^3 Eosinophils # (Auto) 0.0 0.0-0.3 10^3/uL Basophils # (Auto) 0.1 0.0-0.1 10^3/uL Neutrophils % (Manual) 78 % Lymphocytes % (Manual) 12 % Monocytes % (Manual) 9 % Eosinophils % (Manual) 0 % Basophils % (Manual) 0 % Band Neutrophils 1 % Blood Morphology Comment NORMAL Prothrombin Time 15.0 H 12.2-14.7 SEC INR Comment 1.2 0.8-1.4 Activated Partial Thromboplast Time 26 24-35 SEC Sodium Level 123 *L 135-145 MMOL/L Potassium Level 4.7 3.6-5.0 MMOL/L Chloride Level 89 L 98-107 MMOL/L Carbon Dioxide Level 17 L 21-32 MMOL/L Anion Gap 17 H 5-14 MMOL/L Blood Urea Nitrogen 23 H 7-18 MG/DL Creatinine 1.72 H 0.60-1.30 MG/DL Estimat Glomerular Filtration Rate 31 BUN/Creatinine Ratio 13 Glucose Level 879 *H 70-105 MG/DL Calcium Level 9.9 8.5-10.1 MG/DL Total Bilirubin 0.4 0.1-1.0 MG/DL Aspartate Amino Transf (AST/SGOT) 16 5-34 U/L Alanine Aminotransferase (ALT/SGPT) 46 0-55 U/L Alkaline Phosphatase 111 40-136 U/L Total Protein 6.7 6.4-8.2 GM/DL Albumin 3.6 3.2-4.5 GM/DL Lipase 40 8-78 U/L Urine Color YELLOW Urine Clarity CLEAR Urine pH 7 5-9 Urine Specific Jackson 1.010 L 1.016-1.022 Urine Protein 1+ H NEGATIVE Urine Glucose (UA) 4+ H NEGATIVE Urine Ketones NEGATIVE NEGATIVE Urine Nitrite POSITIVE H NEGATIVE Urine Bilirubin NEGATIVE NEGATIVE Urine Urobilinogen NORMAL NORMAL MG/DL Urine Leukocyte Esterase 1+ H NEGATIVE Urine RBC (Auto) 1+ H NEGATIVE Urine RBC 2-5 H /HPF Urine WBC 2-5 /HPF Urine Squamous Epithelial Cells 0-2 /HPF Urine Crystals NONE /LPF Urine Bacteria NONE /HPF Urine Casts NONE /LPF Urine Mucus NEGATIVE /LPF Urine Culture Indicated YES Lactic Acid Level 4.06 *H 0.50-2.00 MMOL/L Glucometer > 600 *H 70-110 MG/DL Test 05/14/17 21:05 05/14/17 21:11 05/14/17 21:21 05/14/17 22:22 Range/Units Lactic Acid Level 4.45 *H 0.50-2.00 MMOL/L Glucometer 318 H 286 H 70-110 MG/DL Sodium Level 135 135-145 MMOL/L Potassium Level 3.3 L 3.6-5.0 MMOL/L Chloride Level 103 98-107 MMOL/L Carbon Dioxide Level 20 L 21-32 MMOL/L Anion Gap 12 5-14 MMOL/L Blood Urea Nitrogen 20 H 7-18 MG/DL Creatinine 1.06 0.60-1.30 MG/DL Estimat Glomerular Filtration Rate 54 BUN/Creatinine Ratio 19 Glucose Level 274 H 70-105 MG/DL Calcium Level 8.4 L 8.5-10.1 MG/DL Magnesium Level 1.7 L 1.8-2.4 MG/DL Test 05/14/17 23:25 05/14/17 23:30 05/15/17 00:41 05/15/17 01:37 Range/Units Sodium Level 136 135-145 MMOL/L Potassium Level 3.6 3.6-5.0 MMOL/L Chloride Level 103 98-107 MMOL/L Carbon Dioxide Level 20 L 21-32 MMOL/L Anion Gap 13 5-14 MMOL/L Blood Urea Nitrogen 18 7-18 MG/DL Creatinine 0.97 0.60-1.30 MG/DL Estimat Glomerular Filtration Rate 59 BUN/Creatinine Ratio 19 Glucose Level 235 H 70-105 MG/DL Calcium Level 8.4 L 8.5-10.1 MG/DL Magnesium Level 1.7 L 1.8-2.4 MG/DL Glucometer 239 H 196 H 165 H 70-110 MG/DL Test 05/15/17 02:34 05/15/17 03:05 05/15/17 04:16 05/15/17 05:04 Range/Units Glucometer 131 H 129 H 156 H 70-110 MG/DL White Blood Count 17.2 H 4.3-11.0 10^3/uL Red Blood Count 3.83 L 4.35-5.85 10^6/uL Hemoglobin 10.9 L 11.5-16.0 G/DL Hematocrit 32 L 35-52 % Mean Corpuscular Volume 84 80-99 FL Mean Corpuscular Hemoglobin 29 25-34 PG Mean Corpuscular Hemoglobin Concent 34 32-36 G/DL Red Cell Distribution Width 14.4 10.0-14.5 % Platelet Count 311 130-400 10^3/uL Mean Platelet Volume 10.2 7.4-10.4 FL Neutrophils (%) (Auto) 76 H 42-75 % Lymphocytes (%) (Auto) 16 12-44 % Monocytes (%) (Auto) 7 0-12 % Eosinophils (%) (Auto) 1 0-10 % Basophils (%) (Auto) 0 0-10 % Neutrophils # (Auto) 13.0 H 1.8-7.8 X 10^3 Lymphocytes # (Auto) 2.8 1.0-4.0 X 10^3 Monocytes # (Auto) 1.2 H 0.0-1.0 X 10^3 Eosinophils # (Auto) 0.1 0.0-0.3 10^3/uL Basophils # (Auto) 0.0 0.0-0.1 10^3/uL Sodium Level 137 135-145 MMOL/L Potassium Level 4.1 3.6-5.0 MMOL/L Chloride Level 106 98-107 MMOL/L Carbon Dioxide Level 20 L 21-32 MMOL/L Anion Gap 11 5-14 MMOL/L Blood Urea Nitrogen 14 7-18 MG/DL Creatinine 0.87 0.60-1.30 MG/DL Estimat Glomerular Filtration Rate > 60 BUN/Creatinine Ratio 16 Glucose Level 123 H 70-105 MG/DL Lactic Acid Level 2.31 *H 1.31 0.50-2.00 MMOL/L Calcium Level 8.1 L 8.5-10.1 MG/DL Phosphorus Level 2.3 2.3-4.7 MG/DL Magnesium Level 1.8 1.8-2.4 MG/DL B-Type Natriuretic Peptide 48.5 <100.0 PG/ML Test 05/15/17 05:11 05/15/17 05:46 05/15/17 07:40 05/15/17 11:06 Range/Units Glucometer 134 H 115 H 336 H 70-110 MG/DL Sodium Level 137 135-145 MMOL/L Potassium Level 4.3 3.6-5.0 MMOL/L Chloride Level 107 98-107 MMOL/L Carbon Dioxide Level 21 21-32 MMOL/L Anion Gap 9 5-14 MMOL/L Blood Urea Nitrogen 12 7-18 MG/DL Creatinine 0.95 0.60-1.30 MG/DL Estimat Glomerular Filtration Rate > 60 BUN/Creatinine Ratio 13 Glucose Level 271 H 70-105 MG/DL Calcium Level 8.0 L 8.5-10.1 MG/DL Troponin I < 0.30 <0.30 NG/ML Physical Exam Vital Signs Vital Signs - First Documented 05/14/17 18:21 Temp 97.3 Pulse 134 Resp 20 B/P (MAP) 133/111 (118) Pulse Ox 94 O2 Delivery Nasal Cannula O2 Flow Rate 2.00 Capillary Refill : Less Than 3 Seconds General Appearance: WD/WN, Moderate Distress Eyes: Bilateral Eye Normal Inspection, Bilateral Eye PERRL, Bilateral Eye EOMI HEENT: PERRL/EOMI, TMs Normal, Normal ENT Inspection, Pharynx Normal Neck: Full Range of Motion, Normal Inspection, Non Tender, Supple, Carotid Bruit Respiratory: Chest Non Tender, Lungs Clear, Normal Breath Sounds, No Accessory Muscle Use, No Respiratory Distress Cardiovascular: Regular Rate, Rhythm, No Edema, No Gallop, No JVD, Normal Peripheral Pulses, Systolic Murmur Gastrointestinal: Normal Bowel Sounds, No Organomegaly, No Pulsatile Mass, Non Tender, Soft Back: Normal Inspection, No CVA Tenderness, No Vertebral Tenderness Extremity: Normal Capillary Refill, Normal Inspection, Normal Range of Motion, Non Tender, No Calf Tenderness, No Pedal Edema Neurologic/Psychiatric: Alert, Oriented x3, No Motor/Sensory Deficits, Normal Mood/Affect Skin: Normal Color, Warm/Dry Lymphatic: No Adenopathy A/P-Cardiology Admission Diagnosis Chest pain Coronary artery disease Sepsis DKA Assessment/Plan Chest pain, resembling angina. Patient has extensive cardiac history, I will continue monitoring closely, monitor cardiac enzymes and EKG. Coronary artery disease :November 26, 2014 STEMI and cardiac catheterization by Dr. Franklin with angioplasty to the left dominant circumflex artery with 3 x 10 mm angioscope balloon. Drug eluted stenting of the proximal and ostial left circumflex artery. Stents were 4 x 16 mm Promus Premier, 4 x 12 mm Promus Premier. Patient also underwent balloon angioplasty of the ostial LAD. It was dilated with a 38 mm emerge [email or web address] cardiac catheterization was done showing patent left main stent extending to the circumflex artery, patient had 40-50 percent ostial LAD stenosis, that is still present at that time. Conservative management is recommended, close monitoring is recommended. March 11, 2016 patient had patent stent in the left main, circumflex, had 40- 50 percent ostial LAD stenosis, did not change compared to the baseline, small nondominant right coronary. Most recent cardiac catheterization done December revealed patent stent in circumflex extending into the left main was small vessel disease of the distal dominant circumflex system. 50 percent ostial LAD stenosis, present previously, no change from baseline. EF 35-40 percent. Continue to monitor Congestive heart failure, chronic left ventricular systolic dysfunction, ischemic cardiomyopathy, I will repeat 2-D echocardiogram. Sepsis, UTI, managed by primary team. Receiving antibiotics. DKA, new onset diabetes. Workup is in progress, managed by primary team. Hypertension, blood pressure is stable at this time. Continue to monitor, receiving IV fluid. Hyperlipidemia, continue to monitor lipids History of rheumatoid arthritis, maintained on meloxicam and prednisone. History of bipolar disorder History of anxiety and depression Irritable bowel syndrome and history of diverticulitis-patient has history of perforated diverticulum of May 2014 for which she had emergency surgery with resection and colostomy. Colostomy reversed in July 2014. Monitored by Dr. Santoyo and primary care physician. Leukocytosis-persistent. Followed by Dr Hercules. Pulmonary emboli-diagnosed December 2016. Maintained on Xarelto. Clinical Quality Measures DVT/VTE Risk/Contraindication: Risk Factor Score Per Nursin RFS Level Per Nursing on Admit: 4+=Very High AKBAR WILSON MD May 15, 2017 12:02
[2017-05-15] MEDS ORDERED: inSUlin (REGULAR) HUMAN 1 UNIT/0.01 ML (CHARGE PER UNIT) SC NR (13:30)
[2017-05-15 14:28] LABS: CALCIUM 8.4 MG/DL (8.5-10.1); CREATININE SERUM 1.1 MG/DL (0.60-1.30); MAGNESIUM 1.8 MG/DL (1.8-2.4); POTASSIUM 4.2 MMOL/L (3.6-5.0)
[2017-05-15] MEDS: HYDROcodone/APAP 5 MG/325 MG (LORTAB) TAB PO PRN ×2 (15:59→21:33)
[2017-05-15] MEDS ORDERED: RIVAROXABAN 15 MG TABLET (XARELTO) PO SCH (21:00)
[2017-05-15] MEDS ORDERED: VENlafaxine XR 75 MG (EFFEXOR XR) CAP PO SCH (21:00)
[2017-05-15] MEDS ORDERED: inSUlin DETERMIR 1 UNIT/0.01 ML (LEVEMIR) CHARGE PER UNIT SQ SCH (21:00)
[2017-05-15] MEDS: ASPIRIN E.C. 81 MG (ECOTRIN) TAB PO SCH (21:23)
[2017-05-15] MEDS: GABAPENTIN 300 MG (NEURONTIN) CAP PO SCH (21:23)
[2017-05-16] VITALS (14 sets, daily range): BP systolic 107–151; BP diastolic 61–92
[2017-05-16] MEDS: NS IV 1000 ML 1,000 ML IV SCH (01:14)
[2017-05-16] MEDS: PIPERACILLIN SODIUM/TAZOBACTAM 4.5 GM in NS (IVPB) 100 ML IV SCH ×3 (01:46→17:37)
[2017-05-16 04:26] LABS: BASOPHILS % (AUTO) 0 % (0-10); EOSINOPHILS # (AUTO) 0.1 10^3/uL (0.0-0.3); EOSINOPHILS % (AUTO) 1 % (0-10); HEMATOCRIT 34 % (35-52); HEMOGLOBIN 11.2 G/DL (11.5-16.0); LYMPHOCYTES # (AUTO) 1.5 X 10^3 (1.0-4.0); LYMPHOCYTES % (AUTO) 12 % (12-44); MEAN CORPUSCULAR HEMOGLOBIN 28 PG (25-34); MEAN CORPUSCULAR HGB CONC 33 G/DL (32-36); MEAN CORPUSCULAR VOLUME 86 FL (80-99); MEAN PLATELET VOLUME 10.1 FL (7.4-10.4); MONOCYTES # (AUTO) 0.8 X 10^3 (0.0-1.0); MONOCYTES % (AUTO) 6 % (0-12); NEUTROPHILS # (AUTO) 9.9 X 10^3 (1.8-7.8); NEUTROPHILS % (AUTO) 81 % (42-75); PLATELET COUNT 258 10^3/uL (130-400); RED BLOOD COUNT 3.96 10^6/uL (4.35-5.85); RED CELL DISTRIBUTION WIDTH 15.1 % (10.0-14.5); WHITE BLOOD COUNT 12.2 10^3/uL (4.3-11.0)
[2017-05-16 04:36] LABS: BUN/CREATININE RATIO 13; CALCIUM 8.3 MG/DL (8.5-10.1); CARBON DIOXIDE 21 MMOL/L (21-32); CHLORIDE 111 MMOL/L (98-107); CREATININE SERUM 0.87 MG/DL (0.60-1.30); GFR ESTIMATED > 60; GLUCOSE 167 MG/DL (70-105); MAGNESIUM 1.8 MG/DL (1.8-2.4); PHOSPHORUS 2.6 MG/DL (2.3-4.7); POTASSIUM 3.9 MMOL/L (3.6-5.0); SODIUM 139 MMOL/L (135-145)
[2017-05-16] MEDS: POTASSIUM CL 10MEQ/50ML IVPB 50 ML IV SCH (06:00)
[2017-05-16] MEDS: MAGNESIUM 1 GM/100 ML IVPB 100 ML IV SCH (06:00)
[2017-05-16] MEDS: KCL 20 MEQ TAB (K-DUR) PO SCH (06:00)
[2017-05-16] MEDS: inSUlin (REGULAR) HUMAN 1 UNIT/0.01 ML (CHARGE PER UNIT) SC SCH ×2 (06:22→11:03)
--- NOTE | 2017-05-16 06:23 | Pulmonary Progress Note ---
Subjective Time Seen by Provider: 09:49 Subjective/Events-last exam No complications noted. Exam Exam Vital Signs Date Time Temp Pulse Resp B/P (MAP) Pulse Ox O2 Delivery O2 Flow Rate FiO2 05/16/17 06:00 92 19 147/88 (107) 97 Nasal Cannula 3.00 05/16/17 05:00 86 10 125/68 (87) 98 Nasal Cannula 3.00 05/16/17 04:00 75 18 151/75 (100) 97 Nasal Cannula 3.00 05/16/17 04:00 97.0 Nasal Cannula 3.00 05/16/17 04:00 98 Nasal Cannula 3.00 05/16/17 03:00 86 14 115/64 (81) 97 Nasal Cannula 3.00 05/16/17 02:00 87 17 128/74 (92) 98 Nasal Cannula 3.00 05/16/17 01:00 92 20 116/79 (91) 98 Nasal Cannula 3.00 05/16/17 01:00 92 05/16/17 00:00 98 Nasal Cannula 3.00 05/16/17 00:00 88 18 130/61 (84) 97 Nasal Cannula 3.00 05/15/17 23:00 91 14 131/84 (100) 96 Nasal Cannula 3.00 05/15/17 22:00 92 26 122/69 (86) 100 Nasal Cannula 3.00 05/15/17 21:00 100 18 111/62 (78) 99 Nasal Cannula 3.00 05/15/17 20:03 98 Nasal Cannula 1.50 05/15/17 20:00 96.3 112 31 140/69 (92) 99 Nasal Cannula 3.00 05/15/17 20:00 98 Nasal Cannula 3.00 05/15/17 19:00 105 05/15/17 19:00 105 17 118/81 (93) 97 Nasal Cannula 3.00 05/15/17 18:00 101 26 115/68 (84) 98 Nasal Cannula 3.00 05/15/17 17:00 101 16 117/61 (79) 98 Nasal Cannula 3.00 05/15/17 16:00 98.1 105 19 124/48 (73) 97 Nasal Cannula 3.00 05/15/17 16:00 98 Nasal Cannula 3.00 05/15/17 15:00 117 15 116/68 (84) 97 Nasal Cannula 2.00 05/15/17 14:27 100 Nasal Cannula 2.00 05/15/17 14:00 112 15 111/51 (71) 97 Nasal Cannula 2.00 05/15/17 13:00 101 05/15/17 13:00 101 18 128/67 (87) 96 Nasal Cannula 2.00 05/15/17 12:11 97.5 05/15/17 12:02 94 Nasal Cannula 2.00 05/15/17 12:01 98.6 05/15/17 12:00 105 15 114/52 (72) 96 Nasal Cannula 2.00 05/15/17 11:00 108 18 118/55 (76) 96 Nasal Cannula 2.00 05/15/17 10:00 109 18 116/58 (77) 98 Nasal Cannula 2.00 05/15/17 09:56 95 Nasal Cannula 2.00 05/15/17 09:00 110 20 118/63 (81) 96 Nasal Cannula 2.00 05/15/17 08:56 94 Nasal Cannula 2.00 05/15/17 08:00 112 22 112/68 (83) 93 Nasal Cannula 2.00 05/15/17 07:55 98.5 05/15/17 07:05 95 Nasal Cannula 2.00 05/15/17 07:00 104 05/15/17 07:00 104 33 120/55 (76) 96 Nasal Cannula 2.00 I & O 05/16/17 07:00 Intake Total 3798.5 ml Output Total 2550 ml Balance 1248.5 ml General Appearance: WD/WN, Moderate Distress HEENT: PERRL/EOMI, TMs Normal, Normal ENT Inspection, Pharynx Normal Neck: Full Range of Motion, Normal Inspection, Non Tender, Supple, Carotid Bruit Respiratory: Chest Non Tender, Lungs Clear, Normal Breath Sounds, No Accessory Muscle Use, No Respiratory Distress Cardiovascular: Regular Rate, Rhythm, No Edema, No Gallop, No JVD, Normal Peripheral Pulses, Systolic Murmur Capillary Refill: Less Than 3 Seconds Extremity: Normal Capillary Refill, Normal Inspection, Normal Range of Motion, Non Tender, No Calf Tenderness, No Pedal Edema Neurologic/Psychiatric: Alert, Oriented x3, No Motor/Sensory Deficits, Normal Mood/Affect Skin: Normal Color, Warm/Dry Lymphatic: No Adenopathy Results Lab Laboratory Tests 05/14/17 18:17 05/14/17 21:21 05/14/17 23:25 05/15/17 03:05 05/15/17 07:40 05/15/17 14:05 05/16/17 03:35 Assessment/Plan Assessment/Plan UTI with severe sepsis - improving with enterococcus -D/C vanco -Continue zosyn HHNK-- no ketones in urine and no hx of DM - Levemir -SSI -Check HbA1C RA- pt is on chronic steroids prednisone 10mg daily Dehydration Metabolic lactic acidosis PT is doing better will transfer to 4th floor. Clinical Quality Measures DVT/VTE Risk/Contraindication: Risk Factor Score Per Nursin RFS Level Per Nursing on Admit: 4+=Very High MAXIMUS FISHER DO May 16, 2017 06:22
[2017-05-16] MEDS: RT-ALBUTEROL/IPRATROPIUM 3 ML (DUONEB) VIAL INH SCH ×4 (06:52→19:55)
[2017-05-16] MEDS ORDERED: TROUGH ORDER-PHARMACY XX ONE (08:00)
[2017-05-16] MEDS ORDERED: inSUlin DETERMIR 1 UNIT/0.01 ML (LEVEMIR) CHARGE PER UNIT SQ SCH ×2 (09:00→21:00)
[2017-05-16] MEDS: LINEZOLID (ZYVOX) 600 MG TAB PO SCH ×2 (11:03→20:09)
--- NOTE | 2017-05-16 11:06 | Diagnostic Imaging Report ---
INDICATION: Diabetic ketoacidosis.. TECHNIQUE: Single view chest 3:11 AM. CORRELATION STUDY: 05/15/2017 FINDINGS: Heart size and vasculature remain mildly prominent. Chronic type change about the lung parenchyma. No focal infiltrate suggested. A very questionable area of nodularity in the left hilum measures 8 mm. IMPRESSION: 1. Heart size and vasculature. 2. Questionable left hilar nodule. Followup two-view chest imaging when the patient is clinically able recommended. Dictated by: Dictated on workstation # [id number]
--- NOTE | 2017-05-16 11:25 | Progress Note-Hospitalist ---
Progress Note HPI/CC on Admission CC: Severe hyperglycemia without history of diabetes with sepsis from UTI HPI: This is a 56-year-old white female known to me from multiple hospital stays at [facility] due to most recent pneumonia completed IV antibiotics on swing bed status 2 weeks ago who presented to the emergency room with altered mental status found to have blood sugar of 879 and acute renal insufficiency with creatinine of 1.7. UA showed the source of infection she was placed on empiric wide spectrum antibiotics and obtain cultures prior to antibiotic administration. She was given aggressive IV fluids insulin drip was started due to the severity of the hyperglycemia and has since weaned off the insulin drip placed on subcutaneous insulin and will be monitor closely in the ICU today. Currently she is doing well reports a headache and I have reconciled her home medications and she is requesting hydrocodone. Hga1c is pending. Progress Notes/Assess & Plan Date Seen 05/16/17 Time Seen by Provider: 10:00 Admission Dx/Process Assessment: Sepsis due to UTI placed on empiric antibiotics Severe hyperglycemia requiring insulin drip with small decrease in bicarbonate New onset diabetes hemoglobin A1c is pending Severe left main CAD managed by Dr. Dobbins Severe COPD oxygen dependent recent pneumonia completed Rocephin and Zithromax treatment UTI's Diagonsis/Assessment & Plan Patient's hemoglobin A1c is 12 and taking note that this was new onset diabetes mellitus when she presented and she reports diabetic education is instructing her what she can't eat she is very frustrated No BM for several days so we'll start multiple medications Maintain on oxygen 24/7 as she had done at home after last discharge for pneumonia and COPD exacerbation White blood cell count much improved Denies any pain Will change antibiotics considering her history of VRE Xarelto will be changed from 15 to 20 mg daily No fever, vital signs stable, pleasant, fatigued, up in chair, chronically ill Regular rate and rhythm, clear to auscultation bilaterally except for wheezes in the bases No edema noted normal range of motion Laboratory Tests 05/15/17 14:05 05/16/17 03:35 Assessment: Sepsis due to UTI placed on empiric antibiotics initially but h/o VRE so will start Zyvox and hold Effexor while on that med Severe hyperglycemia requiring insulin drip with small decrease in bicarbonate New onset diabetes hemoglobin A1c 12 Severe left main CAD managed by Dr. Dobbins Severe COPD oxygen dependent recent pneumonia completed Rocephin and Zithromax treatment UTI's recurrent Plan: Subcutaneous insulin with sliding scale Antibiotics IV fluids Appreciate Dr. Dobbins and Dr. Pearce consultations Reconcile all home meds held unnecessary meds Pain control Zyvox Xarelto change in dose TYSHAWN VOSS DO May 16, 2017 11:25
--- NOTE | 2017-05-16 11:48 | Cardiology Progress Note ---
Subjective Date Seen by Provider: May 16, 2017 Time Seen by Provider: 11:46 Subjective/Events-last exam Patient is sitting in a chair, still having some pressure in the retrosternal area. Generalized fatigue and loss of energy Review of Systems General: No Chills, No Night Sweats, Fatigue, Malaise, No Appetite, No Other HEENT: No Head Aches, No Visual Changes, No Eye Pain, No Ear Pain, No Dysphasia , No Sinus Congestion, No Post Nasal Drip, No Sore Throat, No Other Pulmonary: No Dyspnea, No Cough, No Pleuritic Chest Pain, No Other Cardiovascular: Chest Pain, No: Palpitations, Orthopnea, Paroxysmal Noc. Dyspnea, Edema, Lt Headedness, Other Objective-Cardiology Exam Last Set of Vital Signs Vital Signs 05/16/17 05/16/17 09:30 10:29 Temp 97.2 Pulse 83 Resp 20 B/P (MAP) 133/63 (86) Pulse Ox 97 O2 Delivery Nasal Cannula O2 Flow Rate 2.50 Capillary Refill : Less Than 3 Seconds I&O Intake and Output 05/16/17 00:00 Intake Total 5378.5 ml Output Total 3100 ml Balance 2278.5 ml Intake Oral 1616 ml IV Total 3762.5 ml Output Urine Total 3100 ml General: Alert, Oriented X3, Cooperative HEENT: Atraumatic, PERRLA Neck: Supple, No JVD, No Thyromegaly Lungs: Clear to Auscultation, Normal Air Movement Heart: Regular Rate, Normal S1, Normal S2, No Murmurs Abdomen: Normal Bowel Sounds, Soft, No Tenderness, No Hepatosplenomegaly, No Masses Extremities: No Clubbing, No Cyanosis, No Edema, Normal Pulses, No Tenderness/ Swelling Skin: No Rashes, No Breakdown, No Significant Lesion Neuro: Normal Gait, Normal Speech, Strength at 5/5 X4 Ext, Normal Tone, Sensation Intact Psych/Mental Status: Mental Status NL, Mood NL Results Lab Laboratory Tests 05/15/17 14:05 05/16/17 03:35 A/P-Cardiology Admission Diagnosis Chest pain Coronary artery disease Sepsis DKA Assessment/Plan Chest pain, resembling angina. Patient has extensive cardiac history, no acute EKG changes, cardiac enzymes were negative. Add Imdur. Continue to monitor Coronary artery disease :November 26, 2014 STEMI and cardiac catheterization by Dr. Franklin with angioplasty to the left dominant circumflex artery with 3 x 10 mm angioscope balloon. Drug eluted stenting of the proximal and ostial left circumflex artery. Stents were 4 x 16 mm Promus Premier, 4 x 12 mm Promus Premier. Patient also underwent balloon angioplasty of the ostial LAD. It was dilated with a 38 mm emerge [id number] cardiac catheterization was done showing patent left main stent extending to the circumflex artery, patient had 40-50 percent ostial LAD stenosis, that is still present at that time. Conservative management is recommended, close monitoring is recommended. March 11, 2016 patient had patent stent in the left main, circumflex, had 40- 50 percent ostial LAD stenosis, did not change compared to the baseline, small nondominant right coronary. Most recent cardiac catheterization done December revealed patent stent in circumflex extending into the left main was small vessel disease of the distal dominant circumflex system. 50 percent ostial LAD stenosis, present previously, no change from baseline. EF 35-40 percent. Continue to monitor Congestive heart failure, chronic left ventricular systolic dysfunction, ischemic cardiomyopathy, continue to monitor Sepsis, UTI, managed by primary team. Receiving antibiotics. DKA, new onset diabetes, better at this time. Continue to monitor Hypertension, and tinea current medication and monitor blood pressure Hyperlipidemia, continue to monitor lipids History of rheumatoid arthritis, maintained on meloxicam and prednisone. History of bipolar disorder History of anxiety and depression Irritable bowel syndrome and history of diverticulitis-patient has history of perforated diverticulum of May 2014 for which she had emergency surgery with resection and colostomy. Colostomy reversed in July 2014. Monitored by Dr. Santoyo and primary care physician. Leukocytosis-persistent. Followed by Dr Hercules. Pulmonary emboli-diagnosed December 2016. Maintained on Xarelto. Clinical Quality Measures DVT/VTE Risk/Contraindication: Risk Factor Score Per Nursin RFS Level Per Nursing on Admit: 4+=Very High AKBAR WILSON MD May 16, 2017 11:48
[2017-05-16] MEDS ORDERED: PANTOPRAZOLE 40 MG (PROTONIX) TAB PO NR (12:00)
[2017-05-16] MEDS: HYDROcodone/APAP 5 MG/325 MG (LORTAB) TAB PO PRN (12:47)
[2017-05-16] MEDS: ISOSORBIDE MONONITRATE 30 MG (IMDUR) TAB PO SCH (13:34)
[2017-05-16] MEDS: POLYETHYLENE GLYCOL 17 GM (MIRALAX) PACK PO SCH ×2 (13:39→20:11)
[2017-05-16] MEDS: LACTULOSE SYRUP 10GM/15ML (ENULOSE) 30ML UDC PO SCH ×2 (13:39→20:11)
[2017-05-16] MEDS: SENNA W/DOCUSATE (SENOKOT S) TABLET PO SCH ×2 (13:40→20:11)
[2017-05-16] MEDS: IBUPROFEN TABLET 200 MG TAB PO PRN ×2 (16:18→23:21)
[2017-05-16] MEDS: ONDANSETRON 4 MG/2 ML (SDV) Z0FRAN IVP PRN (16:36)
[2017-05-16] MEDS: RIVAROXABAN 20 MG TABLET (XARELTO) PO SCH (16:36)
[2017-05-16] MEDS: inSUlin ASPART (NovoLOG) 1 UNIT/0.01 ML (CHARGE PER UNIT) SC SCH ×2 (16:36→22:15)
[2017-05-16] MEDS: GABAPENTIN 300 MG (NEURONTIN) CAP PO SCH (20:09)
[2017-05-16] MEDS: ACETAMINOPHEN 500 MG TAB (TYLENOL) PO PRN (20:09)
[2017-05-16] MEDS: ASPIRIN E.C. 81 MG (ECOTRIN) TAB PO SCH (20:10)
[2017-05-16] MEDS ORDERED: inSUlin ASPART (NovoLOG) 1 UNIT/0.01 ML (CHARGE PER UNIT) SC SCH (21:00)
[2017-05-16] MEDS: ONDANSETRON 4 MG (ZOFRAN) ORAL DISSOLVE TAB PO PRN (23:21)
[2017-05-17] VITALS (9 sets, daily range): BP systolic 108–138; BP diastolic 0–68
[2017-05-17] MEDS: PIPERACILLIN SODIUM/TAZOBACTAM 4.5 GM in NS (IVPB) 100 ML IV SCH ×3 (02:50→17:44)
[2017-05-17] MEDS: ACETAMINOPHEN 325 MG TABLET/CAPLET (TYLENOL) PO PRN ×2 (03:00→22:45)
[2017-05-17 05:09] LABS: BASOPHILS % (AUTO) 0 % (0-10); EOSINOPHILS # (AUTO) 0.1 10^3/uL (0.0-0.3); EOSINOPHILS % (AUTO) 1 % (0-10); HEMATOCRIT 33 % (35-52); LYMPHOCYTES # (AUTO) 1.2 X 10^3 (1.0-4.0); LYMPHOCYTES % (AUTO) 10 % (12-44); MEAN CORPUSCULAR HEMOGLOBIN 29 PG (25-34); MEAN CORPUSCULAR HGB CONC 33 G/DL (32-36); MEAN CORPUSCULAR VOLUME 87 FL (80-99); MEAN PLATELET VOLUME 10.4 FL (7.4-10.4); MONOCYTES # (AUTO) 0.6 X 10^3 (0.0-1.0); MONOCYTES % (AUTO) 5 % (0-12); NEUTROPHILS % (AUTO) 85 % (42-75); PLATELET COUNT 228 10^3/uL (130-400); RED BLOOD COUNT 3.84 10^6/uL (4.35-5.85); RED CELL DISTRIBUTION WIDTH 15.4 % (10.0-14.5); WHITE BLOOD COUNT 11.8 10^3/uL (4.3-11.0)
[2017-05-17 05:53] LABS: ALANINE AMINOTRANSFERASE 47 U/L (0-55); ALKALINE PHOSPHATASE 89 U/L (40-136); BILIRUBIN,TOTAL 0.3 MG/DL (0.1-1.0); BUN/CREATININE RATIO 13; CALCIUM 8.3 MG/DL (8.5-10.1); CARBON DIOXIDE 15 MMOL/L (21-32); CHLORIDE 106 MMOL/L (98-107); CREATININE SERUM 0.88 MG/DL (0.60-1.30); GFR ESTIMATED > 60; GLUCOSE 214 MG/DL (70-105); MAGNESIUM 1.8 MG/DL (1.8-2.4); PHOSPHORUS 2.8 MG/DL (2.3-4.7); POTASSIUM 4.4 MMOL/L (3.6-5.0); SODIUM 134 MMOL/L (135-145); TOTAL PROTEIN 5.2 GM/DL (6.4-8.2)
[2017-05-17] MEDS: inSUlin ASPART (NovoLOG) 1 UNIT/0.01 ML (CHARGE PER UNIT) SC SCH ×5 (06:50→16:42)
[2017-05-17] MEDS: PANTOPRAZOLE 40 MG (PROTONIX) TAB PO SCH (06:50)
[2017-05-17] MEDS: RT-ALBUTEROL/IPRATROPIUM 3 ML (DUONEB) VIAL INH SCH ×4 (07:57→19:38)
[2017-05-17] MEDS: ISOSORBIDE MONONITRATE 30 MG (IMDUR) TAB PO SCH (09:13)
[2017-05-17] MEDS: LINEZOLID (ZYVOX) 600 MG TAB PO SCH ×2 (09:13→20:01)
[2017-05-17] MEDS: SENNA W/DOCUSATE (SENOKOT S) TABLET PO SCH ×2 (09:13→20:08)
[2017-05-17] MEDS: IBUPROFEN TABLET 200 MG TAB PO PRN ×2 (09:13→20:01)
[2017-05-17] MEDS: POLYETHYLENE GLYCOL 17 GM (MIRALAX) PACK PO SCH ×2 (09:14→20:02)
[2017-05-17] MEDS: LACTULOSE SYRUP 10GM/15ML (ENULOSE) 30ML UDC PO SCH ×2 (09:14→20:02)
--- NOTE | 2017-05-17 11:01 | Cardiology Progress Note ---
Subjective Date Seen by Provider: May 17, 2017 Time Seen by Provider: 11:00 Subjective/Events-last exam Patient is laying down in bed, feeling better. Denied any active chest pain. Complaining of fatigue and loss of energy. Review of Systems General: No Chills, No Night Sweats, Fatigue, Malaise, No Appetite, No Other HEENT: No Head Aches, No Visual Changes, No Eye Pain, No Ear Pain, No Dysphasia , No Sinus Congestion, No Post Nasal Drip, No Sore Throat, No Other Pulmonary: No Dyspnea, No Cough, No Pleuritic Chest Pain, No Other Cardiovascular: No: Chest Pain, Palpitations, Orthopnea, Paroxysmal Noc. Dyspnea, Edema, Lt Headedness, Other Objective-Cardiology Exam Last Set of Vital Signs Vital Signs 05/17/17 05/17/17 05/17/17 07:59 08:00 10:33 Temp 96.8 Pulse 102 Resp 18 B/P (MAP) 108/54 (72) Pulse Ox 93 O2 Delivery Nasal Cannula O2 Flow Rate 2.50 FiO2 30 Capillary Refill : Less Than 3 Seconds I&O Intake and Output 05/17/17 00:00 Intake Total 5054 ml Output Total 3750 ml Balance 1304 ml Intake Oral 3854 ml IV Total 1200 ml Output Urine Total 3750 ml # Voids 4 # Bowel Movements 4 General: Alert, Oriented X3, Cooperative HEENT: Atraumatic, PERRLA Neck: Supple, No JVD, No Thyromegaly Lungs: Clear to Auscultation, Normal Air Movement Heart: Regular Rate, Normal S1, Normal S2, No Murmurs Abdomen: Normal Bowel Sounds, Soft, No Tenderness, No Hepatosplenomegaly, No Masses Extremities: No Clubbing, No Cyanosis, No Edema, Normal Pulses, No Tenderness/ Swelling Skin: No Rashes, No Breakdown, No Significant Lesion Neuro: Normal Gait, Normal Speech, Strength at 5/5 X4 Ext, Normal Tone, Sensation Intact Psych/Mental Status: Mental Status NL, Mood NL Results Lab Laboratory Tests 05/17/17 04:30 A/P-Cardiology Admission Diagnosis Chest pain Coronary artery disease Sepsis DKA Assessment/Plan Chest pain, resembling angina, reporting improvement, no further episodes of chest pain were reported. Continue to monitor at this time. Coronary artery disease :November 26, 2014 STEMI and cardiac catheterization by Dr. Franklin with angioplasty to the left dominant circumflex artery with 3 x 10 mm angioscope balloon. Drug eluted stenting of the proximal and ostial left circumflex artery. Stents were 4 x 16 mm Promus Premier, 4 x 12 mm Promus Premier. Patient also underwent balloon angioplasty of the ostial LAD. It was dilated with a 38 mm emerge balloonJan2015 cardiac catheterization was done showing patent left main stent extending to the circumflex artery, patient had 40-50 percent ostial LAD stenosis, that is still present at that time. Conservative management is recommended, close monitoring is recommended. March 11, 2016 patient had patent stent in the left main, circumflex, had 40- 50 percent ostial LAD stenosis, did not change compared to the baseline, small nondominant right coronary. Most recent cardiac catheterization done December revealed patent stent in circumflex extending into the left main was small vessel disease of the distal dominant circumflex system. 50 percent ostial LAD stenosis, present previously, no change from baseline. EF 35-40 percent. Continue to monitor Congestive heart failure, chronic left ventricular systolic dysfunction, ischemic cardiomyopathy, continue to monitor Sepsis, UTI, managed by primary team. Receiving antibiotics. DKA, new onset diabetes, better at this time. Continue to monitor Hypertension, and tinea current medication and monitor blood pressure Hyperlipidemia, continue to monitor lipids History of rheumatoid arthritis, maintained on meloxicam and prednisone. History of bipolar disorder History of anxiety and depression Irritable bowel syndrome and history of diverticulitis-patient has history of perforated diverticulum of May 2014 for which she had emergency surgery with resection and colostomy. Colostomy reversed in July 2014. Monitored by Dr. Santoyo and primary care physician. Leukocytosis-persistent. Followed by Dr Hercules. Pulmonary emboli-diagnosed December 2016. Maintained on Xarelto. Clinical Quality Measures DVT/VTE Risk/Contraindication: Risk Factor Score Per Nursin RFS Level Per Nursing on Admit: 4+=Very High AKBAR WILSON MD May 17, 2017 11:01
--- NOTE | 2017-05-17 12:24 | Progress Note-Hospitalist ---
Progress Note HPI/CC on Admission CC: Severe hyperglycemia without history of diabetes with sepsis from UTI HPI: This is a 56-year-old white female known to me from multiple hospital stays at [facility] due to most recent pneumonia completed IV antibiotics on swing bed status 2 weeks ago who presented to the emergency room with altered mental status found to have blood sugar of 879 and acute renal insufficiency with creatinine of 1.7. UA showed the source of infection she was placed on empiric wide spectrum antibiotics and obtain cultures prior to antibiotic administration. She was given aggressive IV fluids insulin drip was started due to the severity of the hyperglycemia and has since weaned off the insulin drip placed on subcutaneous insulin and will be monitor closely in the ICU today. Currently she is doing well reports a headache and I have reconciled her home medications and she is requesting hydrocodone. Hga1c is pending. Progress Notes/Assess & Plan Date Seen 05/17/17 Time Seen by Provider: 11:30 Admission Dx/Process Assessment: Sepsis due to UTI placed on empiric antibiotics Severe hyperglycemia requiring insulin drip with small decrease in bicarbonate New onset diabetes hemoglobin A1c is pending Severe left main CAD managed by Dr. Dobbins Severe COPD oxygen dependent recent pneumonia completed Rocephin and Zithromax treatment UTI's Diagonsis/Assessment & Plan Patient doing much better and getting around with oxygen Wonders if mold exposure had anything to do with recurrent respiratory infections and I told her that it could be a factor On Zosyn and Zyvox per cultures and empiric treatment for pneumonia Blood sugars remain elevated so we'll adjust insulin once again Will go home on insulin Has no pain Bowels are moving No fever, vital signs stable, pleasant, improved Regular rate and rhythm, clear to auscultation bilaterally except for wheezes in the bases No edema noted normal range of motion Laboratory Tests 05/17/17 04:30 Assessment: Sepsis due to UTI and pneumonia placed on empiric antibiotics initially but 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 Dobbins Severe COPD oxygen dependent recent pneumonia completed Rocephin and Zithromax treatment UTI's recurrent Plan: Subcutaneous insulin Antibiotics Appreciate Dr. Dobbins and Dr. Pearce consultations Reconcile all home meds held unnecessary meds Pain control Zyvox Xarelto change in dose TYSHAWN VOSS DO May 17, 2017 12:23
[2017-05-17] MEDS: ACETAMINOPHEN 500 MG TAB (TYLENOL) PO PRN (13:21)
[2017-05-17] MEDS: HYDROcodone/APAP 5 MG/325 MG (LORTAB) TAB PO PRN ×2 (16:23→22:45)
[2017-05-17] MEDS: RIVAROXABAN 20 MG TABLET (XARELTO) PO SCH (16:41)
[2017-05-17] MEDS: ONDANSETRON 4 MG/2 ML (SDV) Z0FRAN IVP PRN ×2 (17:44→22:44)
[2017-05-17] MEDS: GABAPENTIN 300 MG (NEURONTIN) CAP PO SCH (20:00)
[2017-05-17] MEDS: ONDANSETRON 4 MG (ZOFRAN) ORAL DISSOLVE TAB PO PRN (20:01)
[2017-05-17] MEDS: ASPIRIN E.C. 81 MG (ECOTRIN) TAB PO SCH (20:01)
[2017-05-17] MEDS ORDERED: inSUlin DETERMIR 1 UNIT/0.01 ML (LEVEMIR) CHARGE PER UNIT SQ SCH (21:00)
[2017-05-18] VITALS: BP 132/70
[2017-05-18] MEDS: PIPERACILLIN SODIUM/TAZOBACTAM 4.5 GM in NS (IVPB) 100 ML IV SCH ×3 (00:55→17:30)
[2017-05-18 04:00] VITALS: BP 138/65
[2017-05-18 04:55] LABS: BASOPHILS % (AUTO) 0 % (0-10); EOSINOPHILS # (AUTO) 0.1 10^3/uL (0.0-0.3); EOSINOPHILS % (AUTO) 1 % (0-10); HEMATOCRIT 33 % (35-52); HEMOGLOBIN 10.9 G/DL (11.5-16.0); LYMPHOCYTES # (AUTO) 1.4 X 10^3 (1.0-4.0); LYMPHOCYTES % (AUTO) 15 % (12-44); MEAN CORPUSCULAR HEMOGLOBIN 28 PG (25-34); MEAN CORPUSCULAR HGB CONC 33 G/DL (32-36); MEAN CORPUSCULAR VOLUME 86 FL (80-99); MEAN PLATELET VOLUME 10.2 FL (7.4-10.4); MONOCYTES # (AUTO) 0.6 X 10^3 (0.0-1.0); MONOCYTES % (AUTO) 6 % (0-12); NEUTROPHILS # (AUTO) 7.5 X 10^3 (1.8-7.8); NEUTROPHILS % (AUTO) 78 % (42-75); PLATELET COUNT 258 10^3/uL (130-400); RED BLOOD COUNT 3.88 10^6/uL (4.35-5.85); RED CELL DISTRIBUTION WIDTH 15.4 % (10.0-14.5); WHITE BLOOD COUNT 9.5 10^3/uL (4.3-11.0)
[2017-05-18 05:27] LABS: ALBUMIN 3.1 GM/DL (3.2-4.5); BILIRUBIN,TOTAL 0.3 MG/DL (0.1-1.0); CALCIUM 9.1 MG/DL (8.5-10.1); MAGNESIUM 1.8 MG/DL (1.8-2.4); POTASSIUM 4.3 MMOL/L (3.6-5.0); TOTAL PROTEIN 5.7 GM/DL (6.4-8.2)
[2017-05-18] MEDS: inSUlin ASPART (NovoLOG) 1 UNIT/0.01 ML (CHARGE PER UNIT) SC SCH ×3 (06:50→16:20)
[2017-05-18] MEDS: PANTOPRAZOLE 40 MG (PROTONIX) TAB PO SCH (06:50)
[2017-05-18] MEDS: RT-ALBUTEROL/IPRATROPIUM 3 ML (DUONEB) VIAL INH SCH ×4 (07:18→19:56)
[2017-05-18] MEDS: ACETAMINOPHEN 325 MG TABLET/CAPLET (TYLENOL) PO PRN (07:49)
[2017-05-18] MEDS: HYDROcodone/APAP 5 MG/325 MG (LORTAB) TAB PO PRN ×2 (07:49→13:23)
[2017-05-18 08:00] VITALS: BP 136/78
[2017-05-18] MEDS: LINEZOLID (ZYVOX) 600 MG TAB PO SCH ×2 (08:31→21:01)
[2017-05-18] MEDS: SENNA W/DOCUSATE (SENOKOT S) TABLET PO SCH ×2 (08:31→21:00)
[2017-05-18] MEDS: ISOSORBIDE MONONITRATE 30 MG (IMDUR) TAB PO SCH (08:31)
[2017-05-18] MEDS: POLYETHYLENE GLYCOL 17 GM (MIRALAX) PACK PO SCH ×2 (08:32→19:51)
[2017-05-18] MEDS: LACTULOSE SYRUP 10GM/15ML (ENULOSE) 30ML UDC PO SCH ×2 (08:32→19:51)
--- NOTE | 2017-05-18 10:14 | Cardiology Progress Note ---
Subjective Date Seen by Provider: May 18, 2017 Time Seen by Provider: 10:13 Subjective/Events-last exam Patient is sitting in a chair, still complaining of mild headache. Denied any chest pain, no shortness of breath. Feeling better. Review of Systems General: No Chills, No Night Sweats, No Fatigue, No Malaise, No Appetite, Other (Headache.) HEENT: No Head Aches, No Visual Changes, No Eye Pain, No Ear Pain, No Dysphasia , No Sinus Congestion, No Post Nasal Drip, No Sore Throat, No Other Pulmonary: No Dyspnea, No Cough, No Pleuritic Chest Pain, No Other Cardiovascular: No: Chest Pain, Palpitations, Orthopnea, Paroxysmal Noc. Dyspnea, Edema, Lt Headedness, Other Objective-Cardiology Exam Last Set of Vital Signs Vital Signs 05/17/17 05/18/17 05/18/17 07:59 07:18 08:00 Temp 97.4 Pulse 101 Resp 18 B/P (MAP) 136/78 (97) Pulse Ox 97 O2 Delivery Room Air O2 Flow Rate 2.50 FiO2 30 Capillary Refill : Less Than 3 Seconds I&O Intake and Output 05/17/17 23:59 Intake Total 1840 ml Output Total 2700 ml Balance -860 ml Intake Oral 1740 ml IV Total 100 ml Output Urine Total 2700 ml General: Alert, Oriented X3, Cooperative HEENT: Atraumatic, PERRLA Neck: Supple, No JVD, No Thyromegaly Lungs: Clear to Auscultation, Normal Air Movement Heart: Regular Rate, Normal S1, Normal S2, No Murmurs Abdomen: Normal Bowel Sounds, Soft, No Tenderness, No Hepatosplenomegaly, No Masses Extremities: No Clubbing, No Cyanosis, No Edema, Normal Pulses, No Tenderness/ Swelling Skin: No Rashes, No Breakdown, No Significant Lesion Neuro: Normal Gait, Normal Speech, Strength at 5/5 X4 Ext, Normal Tone, Sensation Intact Psych/Mental Status: Mental Status NL, Mood NL Results Lab Laboratory Tests 05/18/17 04:25 A/P-Cardiology Admission Diagnosis Chest pain Coronary artery disease Sepsis DKA Assessment/Plan Chest pain, resembling angina, reporting improvement, improved, no further episodes of chest pain were reported. Continue to monitor at this time. Coronary artery disease :November 26, 2014 STEMI and cardiac catheterization by Dr. Franklin with angioplasty to the left dominant circumflex artery with 3 x 10 mm angioscope balloon. Drug eluted stenting of the proximal and ostial left circumflex artery. Stents were 4 x 16 mm Promus Premier, 4 x 12 mm Promus Premier. Patient also underwent balloon angioplasty of the ostial LAD. It was dilated with a 38 mm emerge balloonJan2015 cardiac catheterization was done showing patent left main stent extending to the circumflex artery, patient had 40-50 percent ostial LAD stenosis, that is still present at that time. Conservative management is recommended, close monitoring is recommended. March 11, 2016 patient had patent stent in the left main, circumflex, had 40- 50 percent ostial LAD stenosis, did not change compared to the baseline, small nondominant right coronary. Most recent cardiac catheterization done December revealed patent stent in circumflex extending into the left main was small vessel disease of the distal dominant circumflex system. 50 percent ostial LAD stenosis, present previously, no change from baseline. EF 35-40 percent. Continue to monitor Congestive heart failure, chronic compensated left ventricular systolic dysfunction, ischemic cardiomyopathy, continue to monitor Sepsis, UTI, managed by primary team. Receiving antibiotics. DKA, new onset diabetes, better at this time. Continue to monitor Hypertension, controlled, continue on current medications and monitor. Hyperlipidemia, continue to monitor lipids History of rheumatoid arthritis, maintained on meloxicam and prednisone. History of bipolar disorder History of anxiety and depression Irritable bowel syndrome and history of diverticulitis-patient has history of perforated diverticulum of May 2014 for which she had emergency surgery with resection and colostomy. Colostomy reversed in July 2014. Monitored by Dr. Santoyo and primary care physician. Leukocytosis-persistent. Followed by Dr Hercules. Pulmonary emboli-diagnosed December 2016. Maintained on Xarelto. Clinical Quality Measures DVT/VTE Risk/Contraindication: Risk Factor Score Per Nursin RFS Level Per Nursing on Admit: 4+=Very High AKBAR WILSON MD May 18, 2017 10:14
[2017-05-18] MEDS: IBUPROFEN TABLET 200 MG TAB PO PRN (10:50)
--- NOTE | 2017-05-18 12:09 | Progress Note-Hospitalist ---
Progress Note HPI/CC on Admission CC: Severe hyperglycemia without history of diabetes with sepsis from UTI HPI: This is a 56-year-old white female known to me from multiple hospital stays at [facility] due to most recent pneumonia completed IV antibiotics on swing bed status 2 weeks ago who presented to the emergency room with altered mental status found to have blood sugar of 879 and acute renal insufficiency with creatinine of 1.7. UA showed the source of infection she was placed on empiric wide spectrum antibiotics and obtain cultures prior to antibiotic administration. She was given aggressive IV fluids insulin drip was started due to the severity of the hyperglycemia and has since weaned off the insulin drip placed on subcutaneous insulin and will be monitor closely in the ICU today. Currently she is doing well reports a headache and I have reconciled her home medications and she is requesting hydrocodone. Hga1c is pending. Progress Notes/Assess & Plan Date Seen 05/18/17 Time Seen by Provider: 11:40 Admission Dx/Process Assessment: Sepsis due to UTI placed on empiric antibiotics Severe hyperglycemia requiring insulin drip with small decrease in bicarbonate New onset diabetes hemoglobin A1c is pending Severe left main CAD managed by Dr. Dobbins Severe COPD oxygen dependent recent pneumonia completed Rocephin and Zithromax treatment UTI's Diagonsis/Assessment & Plan Patient doing much better and getting around with oxygen within the room and I told her to walk the halls with O2 and assist today On Zosyn and Zyvox per cultures and empiric treatment for pneumonia Blood sugars dipping low so we'll adjust insulin once again Will go home on insulin Has no pain Bowels are moving No fever, vital signs stable, pleasant, improved Regular rate and rhythm, clear to auscultation bilaterally except for wheezes in the bases but much improved No edema noted normal range of motion Laboratory Tests 05/18/17 04:25 Assessment: Sepsis due to UTI and pneumonia placed on empiric antibiotics initially but h/o VRE so placed Zyvox and hold Effexor while on that med Severe hyperglycemia requiring insulin drip with small decrease in bicarbonate now on SQ insulin New onset diabetes hemoglobin A1c 12 Severe left main CAD managed by Dr. Dobbins Severe COPD oxygen dependent recent pneumonia completed Rocephin and Zithromax treatment UTI's recurrent Plan: Subcutaneous insulin Antibiotics Appreciate Dr. Dobbins and Dr. Pearce consultations Reconcile all home meds held unnecessary meds Pain control Zyvox Xarelto change in dose Needs Nebulizer machine at [place] and already has home O2 set up last admit Needs insulin sent into pharmacy [place] [facility] Walk in halls and consult PT in the morning TYSHAWN VOSS DO May 18, 2017 12:09
[2017-05-18] MEDS: ONDANSETRON 4 MG/2 ML (SDV) Z0FRAN IVP PRN ×2 (14:28→21:06)
[2017-05-18 15:38] VITALS: BP 124/56
[2017-05-18] MEDS: ONDANSETRON 4 MG (ZOFRAN) ORAL DISSOLVE TAB PO PRN (16:19)
[2017-05-18] MEDS ORDERED: PROMETHAZINE INJ 25 MG/ML (PHENERGAN) AMP IM PRN (16:45)
[2017-05-18] MEDS: KETOROLAC 30 MG/ML VIAL IVP PRN ×2 (16:54→23:12)
[2017-05-18] MEDS: RIVAROXABAN 20 MG TABLET (XARELTO) PO SCH (17:30)
[2017-05-18] MEDS ORDERED: inSUlin DETERMIR 1 UNIT/0.01 ML (LEVEMIR) CHARGE PER UNIT SQ SCH (21:00)
[2017-05-18] MEDS: GABAPENTIN 300 MG (NEURONTIN) CAP PO SCH (21:01)
[2017-05-18] MEDS: ASPIRIN E.C. 81 MG (ECOTRIN) TAB PO SCH (21:01)
[2017-05-18 21:08] VITALS: BP 140/65
[2017-05-19 00:25] VITALS: BP 134/68
[2017-05-19] MEDS: PIPERACILLIN SODIUM/TAZOBACTAM 4.5 GM in NS (IVPB) 100 ML IV SCH ×2 (01:24→08:14)
[2017-05-19 05:06] LABS: BASOPHILS % (AUTO) 0 % (0-10); EOSINOPHILS # (AUTO) 0.1 10^3/uL (0.0-0.3); EOSINOPHILS % (AUTO) 1 % (0-10); HEMATOCRIT 34 % (35-52); HEMOGLOBIN 11.3 G/DL (11.5-16.0); LYMPHOCYTES # (AUTO) 1.5 X 10^3 (1.0-4.0); LYMPHOCYTES % (AUTO) 20 % (12-44); MEAN CORPUSCULAR HEMOGLOBIN 29 PG (25-34); MEAN CORPUSCULAR HGB CONC 34 G/DL (32-36); MEAN CORPUSCULAR VOLUME 85 FL (80-99); MEAN PLATELET VOLUME 9.8 FL (7.4-10.4); MONOCYTES # (AUTO) 0.5 X 10^3 (0.0-1.0); MONOCYTES % (AUTO) 7 % (0-12); NEUTROPHILS # (AUTO) 5.5 X 10^3 (1.8-7.8); NEUTROPHILS % (AUTO) 72 % (42-75); PLATELET COUNT 266 10^3/uL (130-400); RED BLOOD COUNT 3.97 10^6/uL (4.35-5.85); RED CELL DISTRIBUTION WIDTH 15.6 % (10.0-14.5); WHITE BLOOD COUNT 7.7 10^3/uL (4.3-11.0)
[2017-05-19 05:44] LABS: BUN/CREATININE RATIO 8; CALCIUM 9.5 MG/DL (8.5-10.1); CARBON DIOXIDE 23 MMOL/L (21-32); CHLORIDE 107 MMOL/L (98-107); CREATININE SERUM 0.95 MG/DL (0.60-1.30); GFR ESTIMATED > 60; GLUCOSE 92 MG/DL (70-105); MAGNESIUM 1.8 MG/DL (1.8-2.4); PHOSPHORUS 4.5 MG/DL (2.3-4.7); POTASSIUM 4.1 MMOL/L (3.6-5.0); SODIUM 141 MMOL/L (135-145)
[2017-05-19] MEDS: PANTOPRAZOLE 40 MG (PROTONIX) TAB PO SCH (06:14)
[2017-05-19] MEDS: inSUlin ASPART (NovoLOG) 1 UNIT/0.01 ML (CHARGE PER UNIT) SC SCH (06:14)
[2017-05-19 08:00] VITALS: BP 133/65
[2017-05-19] MEDS: POLYETHYLENE GLYCOL 17 GM (MIRALAX) PACK PO SCH (08:13)
[2017-05-19] MEDS: ISOSORBIDE MONONITRATE 30 MG (IMDUR) TAB PO SCH (08:13)
[2017-05-19] MEDS: SENNA W/DOCUSATE (SENOKOT S) TABLET PO SCH (08:13)
[2017-05-19] MEDS: LACTULOSE SYRUP 10GM/15ML (ENULOSE) 30ML UDC PO SCH (08:13)
[2017-05-19] MEDS: LINEZOLID (ZYVOX) 600 MG TAB PO SCH (08:14)
--- NOTE | 2017-05-19 08:26 | Cardiology Progress Note ---
Subjective Date Seen by Provider: May 19, 2017 Time Seen by Provider: 08:24 Subjective/Events-last exam Patient is sitting up in bed, receiving diabetic education. Denies any chest pain or dyspnea. No complaints at this time. Objective-Cardiology Exam Last Set of Vital Signs Vital Signs 05/17/17 05/18/17 05/19/17 07:59 20:00 00:25 Temp 97.9 Pulse 84 Resp 19 B/P (MAP) 134/68 (90) Pulse Ox 94 O2 Delivery Room Air O2 Flow Rate 2.00 FiO2 30 Capillary Refill : Less Than 3 Seconds I&O Intake and Output 05/19/17 00:00 Intake Total 2690 ml Output Total 2650 ml Balance 40 ml Intake Oral 2390 ml IV Total 300 ml Output Urine Total 2600 ml Emesis 50 ml # Bowel Movements 3 General: Alert, Oriented X3, Cooperative HEENT: Atraumatic, PERRLA Neck: Supple, No JVD, No Thyromegaly Lungs: Clear to Auscultation, Normal Air Movement Heart: Normal S1, Normal S2, No Murmurs, Other (tachycardic) Abdomen: Normal Bowel Sounds, Soft, No Tenderness, No Hepatosplenomegaly, No Masses Extremities: No Clubbing, No Cyanosis, No Edema, Normal Pulses, No Tenderness/ Swelling Skin: No Rashes, No Breakdown, No Significant Lesion Neuro: Normal Gait, Normal Speech, Strength at 5/5 X4 Ext, Normal Tone, Sensation Intact Psych/Mental Status: Mental Status NL, Mood NL Results Lab Laboratory Tests 05/19/17 04:55 A/P-Cardiology Admission Diagnosis Chest pain Coronary artery disease Sepsis DKA Assessment/Plan Chest pain, resembling angina, reporting improvement, improved, no further episodes of chest pain were reported. Continue to monitor at this time. Coronary artery disease :November 26, 2014 STEMI and cardiac catheterization by Dr. Franklin with angioplasty to the left dominant circumflex artery with 3 x 10 mm angioscope balloon. Drug eluted stenting of the proximal and ostial left circumflex artery. Stents were 4 x 16 mm Promus Premier, 4 x 12 mm Promus Premier. Patient also underwent balloon angioplasty of the ostial LAD. It was dilated with a 38 mm emerge balloonApril 21, 2015 cardiac catheterization was done showing patent left main stent extending to the circumflex artery, patient had 40-50 percent ostial LAD stenosis, that is still present at that time. Conservative management is recommended, close monitoring is recommended. March 11, 2016 patient had patent stent in the left main, circumflex, had 40- 50 percent ostial LAD stenosis, did not change compared to the baseline, small nondominant right coronary. Most recent cardiac catheterization done December revealed patent stent in circumflex extending into the left main was small vessel disease of the distal dominant circumflex system. 50 percent ostial LAD stenosis, present previously, no change from baseline. EF 35-40 percent. Continue to monitor Congestive heart failure, chronic compensated left ventricular systolic dysfunction, ischemic cardiomyopathy, continue to monitor Sepsis, UTI, managed by primary team. Receiving antibiotics. DKA, new onset diabetes, better at this time. Continue to monitor Hypertension, controlled, continue on current medications and monitor. Hyperlipidemia, continue to monitor lipids History of rheumatoid arthritis, maintained on meloxicam and prednisone. History of bipolar disorder History of anxiety and depression Irritable bowel syndrome and history of diverticulitis-patient has history of perforated diverticulum of May 2014 for which she had emergency surgery with resection and colostomy. Colostomy reversed in July 2014. Monitored by Dr. Santoyo and primary care physician. Leukocytosis-persistent. Followed by Dr Hercules. Pulmonary emboli-diagnosed December 2016. Maintained on Xarelto. Clinical Quality Measures DVT/VTE Risk/Contraindication: Risk Factor Score Per Nursin RFS Level Per Nursing on Admit: 4+=Very High KIMBERLEY BROWN May 19, 2017 08:26
--- NOTE | 2017-05-19 08:40 | Cardiology Progress Note ---
Subjective Date Seen by Provider: May 19, 2017 Time Seen by Provider: 08:38 Subjective/Events-last exam Patient is laying down in bed, feeling better, denied any chest pain today, noted to be slightly tachycardic. Review of Systems General: No Chills, No Night Sweats, Fatigue, Malaise, No Appetite, No Other HEENT: No Head Aches, No Visual Changes, No Eye Pain, No Ear Pain, No Dysphasia , No Sinus Congestion, No Post Nasal Drip, No Sore Throat, No Other Pulmonary: No Dyspnea, No Cough, No Pleuritic Chest Pain, No Other Cardiovascular: No: Chest Pain, Palpitations, Orthopnea, Paroxysmal Noc. Dyspnea, Edema, Lt Headedness, Other Objective-Cardiology Exam Last Set of Vital Signs Vital Signs 05/17/17 05/18/17 05/19/17 07:59 20:00 00:25 Temp 97.9 Pulse 84 Resp 19 B/P (MAP) 134/68 (90) Pulse Ox 94 O2 Delivery Room Air O2 Flow Rate 2.00 FiO2 30 Capillary Refill : Less Than 3 Seconds I&O Intake and Output 05/19/17 00:00 Intake Total 2690 ml Output Total 2650 ml Balance 40 ml Intake Oral 2390 ml IV Total 300 ml Output Urine Total 2600 ml Emesis 50 ml # Bowel Movements 3 General: Alert, Oriented X3, Cooperative HEENT: Atraumatic, PERRLA Neck: Supple, No JVD, No Thyromegaly Lungs: Clear to Auscultation, Normal Air Movement Heart: Normal S1, Normal S2, No Murmurs, Other (tachycardic) Abdomen: Normal Bowel Sounds, Soft, No Tenderness, No Hepatosplenomegaly, No Masses Extremities: No Clubbing, No Cyanosis, No Edema, Normal Pulses, No Tenderness/ Swelling Skin: No Rashes, No Breakdown, No Significant Lesion Neuro: Normal Gait, Normal Speech, Strength at 5/5 X4 Ext, Normal Tone, Sensation Intact Psych/Mental Status: Mental Status NL, Mood NL Results Lab Laboratory Tests 05/19/17 04:55 A/P-Cardiology Admission Diagnosis Chest pain Coronary artery disease Sepsis DKA Assessment/Plan Chest pain, resembling angina, reporting improvement, improved, no further episodes of chest pain were reported. Continue to monitor at this time. Coronary artery disease :November 26, 2014 STEMI and cardiac catheterization by Dr. Franklin with angioplasty to the left dominant circumflex artery with 3 x 10 mm angioscope balloon. Drug eluted stenting of the proximal and ostial left circumflex artery. Stents were 4 x 16 mm Promus Premier, 4 x 12 mm Promus Premier. Patient also underwent balloon angioplasty of the ostial LAD. It was dilated with a 38 mm emerge balloonJan2015 cardiac catheterization was done showing patent left main stent extending to the circumflex artery, patient had 40-50 percent ostial LAD stenosis, that is still present at that time. Conservative management is recommended, close monitoring is recommended. March 11, 2016 patient had patent stent in the left main, circumflex, had 40- 50 percent ostial LAD stenosis, did not change compared to the baseline, small nondominant right coronary. Most recent cardiac catheterization done December revealed patent stent in circumflex extending into the left main was small vessel disease of the distal dominant circumflex system. 50 percent ostial LAD stenosis, present previously, no change from baseline. EF 35-40 percent. Continue to monitor Congestive heart failure, chronic compensated left ventricular systolic dysfunction, ischemic cardiomyopathy, continue to monitor Sepsis, UTI, managed by primary team. Receiving antibiotics. DKA, new onset diabetes, better at this time. Continue to monitor Hypertension, controlled, continue on current medications and monitor. Hyperlipidemia, continue to monitor lipids History of rheumatoid arthritis, maintained on meloxicam and prednisone. History of bipolar disorder History of anxiety and depression Irritable bowel syndrome and history of diverticulitis-patient has history of perforated diverticulum of May 2014 for which she had emergency surgery with resection and colostomy. Colostomy reversed in July 2014. Monitored by Dr. Santoyo and primary care physician. Leukocytosis-persistent. Followed by Dr Hercules. Pulmonary emboli-diagnosed December 2016. Maintained on Xarelto. Clinical Quality Measures DVT/VTE Risk/Contraindication: Risk Factor Score Per Nursin RFS Level Per Nursing on Admit: 4+=Very High AKBAR WILSON MD May 19, 2017 08:40
[2017-05-19] MEDS ORDERED: meTOprolol TARTRATE 25 MG (LOPRESSOR) TABLET PO SCH (09:00)
[2017-05-19] MEDS: IBUPROFEN TABLET 200 MG TAB PO PRN (09:40)
[2017-05-19] MEDS: ACETAMINOPHEN 500 MG TAB (TYLENOL) PO PRN (09:40)
[2017-05-19] MEDS: ONDANSETRON 4 MG (ZOFRAN) ORAL DISSOLVE TAB PO PRN (09:43)
[2017-05-19] MEDS ORDERED: INSU100I14 SQ (10:05)
[2017-05-19] MEDS ORDERED: INSU100V6 SQ (10:05)
--- NOTE | 2017-05-19 10:21 | Discharge Instructions ---
Discharge Instructions Patient Instructions Patient Instructions: Keep appointment with Dr. Reyes Medications as on the discharge sequence. You have new prescriptions for insulin. On your visit with Dr. Reyes, arrange for a new nebulizer, and ambulatory O2 pack, and a glucometer. Activity & Diet Discharge Diet: ADA Diet Activity as Tolerated: Yes LORENZO WOLFF MD May 19, 2017 10:13
--- NOTE | 2017-05-19 10:27 | Progress Note-Hospitalist ---
Standard Progress Note Progress Notes/Assess & Plan Date Seen 05/19/17 Time Seen by Provider: 10:22 Diagnosis Assessment: Sepsis due to UTI placed on empiric antibiotics Severe hyperglycemia requiring insulin drip with small decrease in bicarbonate New onset diabetes hemoglobin A1c is pending Severe left main CAD managed by Dr. Dobbins Severe COPD oxygen dependent recent pneumonia completed Rocephin and Zithromax treatment UTI's Assess & Plan/Chief Complaint The patient is a 56-year-old white female with significant chronic illness including arteriosclerotic heart disease, cardiomyopathy, COPD, obesity, urinary tract infections, and now hyperglycemia/new onset diabetes mellitus. She had been admitted as an inpatient fashion and had been discharged. She will return 5 days ago was admitted to swing bed with a blood sugar greater than 800 and evidence of acute urinary tract infection which later grew Enterococcus faecalis. She is now significantly recovered and will be discharged. Medications are listed in the discharge sequence. She is to see Dr. Reyes her usual PCP this morning. She has a variety of supplies that she will need to arrange through him. Physical exam: She is sitting up and in no apparent distress. Lungs are clear to auscultation. CV is regular without murmur. Abdomen is obese. Extremities show no pedal edema. Impression: New onset diabetes mellitus, insulin requiring. 2.urinary tract infection with enterococcus faecalis. Labs Laboratory Tests 05/18/17 04:25 05/19/17 04:55 LORENZO WOLFF MD May 19, 2017 10:27
[2017-05-19 10:45] VITALS: BP 133/65
--- NOTE | 2017-05-19 11:15 | Physical Therapy Evaluation ---
PT Evaluation-General Medical Diagnosis Admission Date May 14, 2017 at 20:53 Medical Diagnosis: DKA/abdominal pain, ARF Onset Date: May 14, 2017 Therapy Diagnosis Therapy Diagnosis: debility Height/Weight Height (Feet): 5 Height (Inches): 2.00 Weight (Pounds): 184 Weight (Ounces): 1.6 Precautions Precautions/Isolations: Contact Isolation, Fall Prevention, Pressure Ulcer Weight Bear Status Right Lower Extremity: Right Full Weight Bearing Left Lower Extremity: Left Full Weight Bearing Referral Physician: Anderson Reason for Referral: Evaluation/Treatment Medical History Pertinent Medical History: Alcoholism, Arthritis, CAD, COPD, HTN, [place], Rheumatoid Arthritis, Smoking Current History ED with nausea, fever, and cough Reviewed History: Yes Social History Home: Apartment Prior/[facility] Prior Level of Function Functional Worth Measure 0=Not Assessed/NA 4=Minimal Assistance 1=Total Assistance 5=Supervision or Setup 2=Maximal Assistance 6=Modified Worth 3=Moderate Assistance 7=Complete Worth Bed Mobility: 7 Transfers (B,C,W/C) (FIM): 7 Gait: 7 PT Evaluation-Current Subjective Patient agrees to PT. Pain Numeric Pain Scale: 10-Worst Possible Pain Location Body Site: Head Pain Description: Pressure, Sharp Objective Patient Orientation: Normal For Age ROM/Strength ROM Lower Extremities bilateral LE WNL Strength Lower Extremities 5/5 grossly bilateral LE Integumentary/Posture Integumentary refer to nursing notes Bowel Incontinence: No Bladder Incontinence: No Posture WFL Neuromuscular (Tone, Coordination, Reflexes) grossly intact Sensory Vision: Functional Hearing: Functional Sensation Right Lower Extremit: Intact Sensation Left Lower Extremity: Intact Transfers Functional Worth Measure 0=Not Assessed/NA 4=Minimal Assistance 1=Total Assistance 5=Supervision or Setup 2=Maximal Assistance 6=Modified Worth 3=Moderate Assistance 7=Complete Worth Transfers (B, C, W/C) (FIM): 7 Scootin Rollin Supine to/from Sit: 7 Sit to/from Stand: 7 Gait Mode of Locomotion: Walk Anticipated Mode of Locomotion: Walk Gait (FIM): 6 Distance (FIM): 3=150 ft Distance: 500' Gait Level of Assist: 6 Gait Assistive Device: FWW Comments/Gait Description safe and functional Balance Sitting Static: Normal Sitting Dynamic: Normal Standing Static: Normal Standing Dynamic: Normal Assessment/Needs Patient is currently at [facility] with all gross motor skills. Patient reports she utilizes FWW or cane PRN at home. Rehab Potential: Good PT Plan Treatment/Plan Treatment Plan: Discontinue PT, goals met Treatment Plan: Other Treatment Duration: May 19, 2017 Frequency: 1 time per week Estimated Hrs Per Day: .25 hour per day Patient and/or Family Agrees t: Yes Time/GCodes Time In: 940 Time Out: 1000 Total Billed Treatment Time: 20 Total Billed Treatment 1 visit EVModC 20 min SCOTT NUR PT May 19, 2017 11:15
[2017-05-19] MEDS ORDERED: ATORVASTATIN 40 MG (LIPITOR) TABLET PO SCH (21:00)
[2017-05-19] MEDS ORDERED: FENOFIBRATE 134 MG (LOFIBRA) CAPSULE PO SCH (21:00)
--- NOTE | 2017-05-21 09:43 | Physician Query Clarification ---
PQ-Conflicting Diagnosis Admission/Discharge Admission Date: May 14, 2017 at 20:53 Discharge Date: May 19, 2017 at 10:45 The medical record reflects the following clinical scenario: History/Risk Factors: excessive thirst, nausea Clinical Findings: new onset diabetes mellitis Treatment: Insulin, IV fluids Question: Do you agree with the impression of the diabetic ketoacidosis per Dr. Dobbins. Please document a response below. PHYSICIAN RESPONSE Do you agree w/Consulting Dx?: Yes In responding to this query, please exercise your independent professional judgment. The purpose of this communication is to more accurately reflect the complexity of your patients condition. The fact that a question is asked does not imply that any particular answer is desired or expected. Thank you for your timely response to this clarification. Requestors name: [ ] Phone # [ ] THIS PHYSICIAN QUERY FORM IS A PERMANENT PART OF THE MEDICAL RECORD SANDY MCKEON May 21, 2017 09:43 TYSHAWN VOSS DO May 22, 2017 10:30
== END 2017-05-19 10:45 | disposition home or self-care (01) | DRG 871 ==
LOC: EDUNIT# 18:07 → ER 18:09 → ICU 20:53 → 4TH 05-16 09:20
PROVIDERS: ADMIT Internal Medicine; ATTEND Internal Medicine
DX: A41.9 Sepsis, unspecified organism (principal); E11.10 Type 2 diabetes mellitus with ketoacidosis without coma; N39.0 Urinary tract infection, site not specified; E87.2 Acidosis; E86.0 Dehydration; E11.65 Type 2 diabetes mellitus with hyperglycemia; I25.119 Atherosclerotic heart disease of native coronary artery with unspecified angina pectoris; I10 Essential (primary) hypertension; I50.22 Chronic systolic (congestive) heart failure; B95.2 Enterococcus as the cause of diseases classified elsewhere; J44.9 Chronic obstructive pulmonary disease, unspecified; N28.9 Disorder of kidney and ureter, unspecified; I25.2 Old myocardial infarction; E78.5 Hyperlipidemia, unspecified; G40.909 Epilepsy, unspecified, not intractable, without status epilepticus; K21.9 Gastro-esophageal reflux disease without esophagitis; M06.9 Rheumatoid arthritis, unspecified; M19.91 Primary osteoarthritis, unspecified site; K58.9 Irritable bowel syndrome, unspecified; K57.90 Diverticulosis of intestine, part unspecified, without perforation or abscess without bleeding; M79.7 Fibromyalgia; F41.9 Anxiety disorder, unspecified; F31.9 Bipolar disorder, unspecified; J30.2 Other seasonal allergic rhinitis; Z79.52 Long term (current) use of systemic steroids; Z87.891 Personal history of nicotine dependence; Z99.81 Dependence on supplemental oxygen; Z87.01 Personal history of pneumonia (recurrent); Z95.5 Presence of coronary angioplasty implant and graft; Z86.711 Personal history of pulmonary embolism
CPT/HCPCS: 36415; 71045; 71046; 74176; 80048; 80053; 80202; 81000; 82962; 83036; 83605; 83690; 83735; 83880; 84100; 84484; 85007; 85025; 85027; 85610; 85730; 87040; 87081; 87088; 87186; 87804; 93005; 94640; 94664; 94760; 96374; 96375; 96376

== ENCOUNTER 2017-05-30 10:36 | Outpatient (RCR) | payer MEDICARE, MEDICAID ==
[~2017-05-30 10:36] MED LIST changes: +INSU100I14 SQ; +INSU100V6 SQ
== END 2017-08-28 | disposition home or self-care (01) ==
LOC: ONC 10:36
PROVIDERS: ATTEND Internal Medicine Hematology & Oncology
DX: D72.829 Elevated white blood cell count, unspecified (principal); D47.3 Essential (hemorrhagic) thrombocythemia; I26.99 Other pulmonary embolism without acute cor pulmonale; F17.210 Nicotine dependence, cigarettes, uncomplicated; M79.7 Fibromyalgia; M06.9 Rheumatoid arthritis, unspecified; E78.5 Hyperlipidemia, unspecified; I25.10 Atherosclerotic heart disease of native coronary artery without angina pectoris; I12.9 Hypertensive chronic kidney disease with stage 1 through stage 4 chronic kidney disease, or unspecified chronic kidney disease; N18.9 Chronic kidney disease, unspecified; E11.22 Type 2 diabetes mellitus with diabetic chronic kidney disease; E11.65 Type 2 diabetes mellitus with hyperglycemia; F41.9 Anxiety disorder, unspecified; R23.2 Flushing; Z87.01 Personal history of pneumonia (recurrent); Z87.440 Personal history of urinary (tract) infections; Z79.899 Other long term (current) drug therapy; Z79.52 Long term (current) use of systemic steroids; Z79.82 Long term (current) use of aspirin
CPT/HCPCS: 99213

== ENCOUNTER → 2017-06-05 | Outpatient (CLI) | payer MEDICARE, MEDICAID ==
--- NOTE | 2017-06-05 12:30 | Diagnostic Imaging Report ---
INDICATION: Pneumonia. TIME OF EXAMINATION: 12:22 p.m. COMPARISON: Correlation is made with prior study from 05/16/2017. FINDINGS: The area of nodularity in the left hilum previously described appears slightly less prominent on today's study and may be vascular. There are some tiny nodular densities throughout both lungs suggestive of granulomas. No effusion is seen. There is no pneumothorax. IMPRESSION: Overall improvement in congestive changes when compare with examination of 05/16/2017. The nodular density in the left hilum is likely vasculature and appears smaller on today's study. No acute features seen. Dictated by: Dictated on workstation # [id number]
== END ==
LOC: RAD 11:53
PROVIDERS: ATTEND Nurse Practitioner Family
DX: J18.9 Pneumonia, unspecified organism (principal)
CPT/HCPCS: 71046

== ENCOUNTER → 2017-06-11 | Outpatient (CLI) | payer MEDICARE, MEDICAID ==
[~2017-06-11] MED LIST changes: +RT-ALBUTEROL SULF 2.5 MG/3 ML PRE-MIX VIAL INH ONE
== END ==
LOC: RT 12:55
PROVIDERS: ATTEND Nurse Practitioner Family
DX: J44.9 Chronic obstructive pulmonary disease, unspecified (principal); R53.83 Other fatigue
CPT/HCPCS: 94060; 94726; 94729

== ENCOUNTER 2017-06-16 21:12 | Outpatient (CLI) | payer MEDICARE, MEDICAID ==
[~2017-06-16 21:12] MED LIST changes: -RT-ALBUTEROL SULF 2.5 MG/3 ML PRE-MIX VIAL INH ONE
== END 2017-06-17 06:45 | disposition home or self-care (01) ==
LOC: SLEEP 21:12
PROVIDERS: ATTEND Nurse Practitioner Family
DX: G47.00 Insomnia, unspecified (principal); G47.30 Sleep apnea, unspecified; G47.50 Parasomnia, unspecified; R09.02 Hypoxemia
CPT/HCPCS: 95810

== ENCOUNTER 2017-09-05 09:53 | Outpatient (RCR) | payer MEDICARE, MEDICAID ==
[~2017-09-05 09:53] MED LIST changes: -IPRA3AMP INH; +IPRA3AMP31 INH
[2017-09-05 10:11] LABS: BASOPHILS # (AUTO) 0.1 10^3/uL (0.0-0.1); BASOPHILS % (AUTO) 0 % (0-10); EOSINOPHILS # (AUTO) 0.1 10^3/uL (0.0-0.3); EOSINOPHILS % (AUTO) 0 % (0-10); HEMATOCRIT 36 % (35-52); HEMOGLOBIN 12.6 G/DL (11.5-16.0); LYMPHOCYTES # (AUTO) 4.5 X 10^3 (1.0-4.0); LYMPHOCYTES % (AUTO) 27 % (12-44); MEAN CORPUSCULAR HEMOGLOBIN 26 PG (25-34); MEAN CORPUSCULAR HGB CONC 35 G/DL (32-36); MEAN CORPUSCULAR VOLUME 76 FL (80-99); MEAN PLATELET VOLUME 10.6 FL (7.4-10.4); MONOCYTES # (AUTO) 1.4 X 10^3 (0.0-1.0); MONOCYTES % (AUTO) 8 % (0-12); NEUTROPHILS # (AUTO) 10.7 X 10^3 (1.8-7.8); NEUTROPHILS % (AUTO) 64 % (42-75); PLATELET COUNT 495 10^3/uL (130-400); RED BLOOD COUNT 4.79 10^6/uL (4.35-5.85); RED CELL DISTRIBUTION WIDTH 15.1 % (10.0-14.5); WHITE BLOOD COUNT 16.7 10^3/uL (4.3-11.0)
[2017-09-05 10:31] LABS: ALBUMIN 3.9 GM/DL (3.2-4.5); BILIRUBIN,TOTAL 0.3 MG/DL (0.1-1.0); CALCIUM 10.1 MG/DL (8.5-10.1); CREATININE SERUM 1.3 MG/DL (0.60-1.30); POTASSIUM 3.8 MMOL/L (3.6-5.0); TOTAL PROTEIN 7.4 GM/DL (6.4-8.2)
[2017-09-05 10:55] LABS: BILIRUBIN,URINE NEGATIVE (NEGATIVE); CLARITY,URINE CLEAR; COLOR,URINE YELLOW; GLUCOSE, URINE (UA) 4+ (NEGATIVE); KETONES,URINE NEGATIVE (NEGATIVE); LEUKOCYTE ESTERASE ,URINE 2+ (NEGATIVE); NITRITE,URINE NEGATIVE (NEGATIVE); PH,URINE 6 (5-9); PROTEIN,URINE NEGATIVE (NEGATIVE); UROBILINOGEN,URINE NORMAL (NORMAL)
[2017-09-05 11:02] LABS: BACTERIA,URINE TRACE /HPF
[2017-09-23] MEDS ORDERED: HYDR-3812 PO (15:41)
[2017-09-23] MEDS ORDERED: CEPH-507 PO (15:41)
== END 2017-12-04 | disposition home or self-care (01) ==
LOC: ONC 09:53
PROVIDERS: ATTEND Internal Medicine Hematology & Oncology
DX: D72.829 Elevated white blood cell count, unspecified (principal); D47.3 Essential (hemorrhagic) thrombocythemia; I26.99 Other pulmonary embolism without acute cor pulmonale; N39.0 Urinary tract infection, site not specified; F17.210 Nicotine dependence, cigarettes, uncomplicated; M79.7 Fibromyalgia; M06.9 Rheumatoid arthritis, unspecified; E78.5 Hyperlipidemia, unspecified; I25.10 Atherosclerotic heart disease of native coronary artery without angina pectoris; I12.9 Hypertensive chronic kidney disease with stage 1 through stage 4 chronic kidney disease, or unspecified chronic kidney disease; N18.9 Chronic kidney disease, unspecified; E11.22 Type 2 diabetes mellitus with diabetic chronic kidney disease; E11.65 Type 2 diabetes mellitus with hyperglycemia; F41.9 Anxiety disorder, unspecified; R23.2 Flushing; Z87.01 Personal history of pneumonia (recurrent); Z79.899 Other long term (current) drug therapy; Z79.52 Long term (current) use of systemic steroids; Z79.82 Long term (current) use of aspirin
CPT/HCPCS: 36415; 80053; 81000; 82728; 83540; 83615; 85025; 87088; 99213

== ENCOUNTER → 2017-10-08 | Outpatient (CLI) | payer MEDICARE, MEDICAID ==
[~2017-10-08] MED LIST changes: +CEPH-507 PO; +HYDR-3812 PO
== END ==
LOC: RAD 10:28
PROVIDERS: ATTEND Optometrist
DX: H53.2 Diplopia (principal)

== ENCOUNTER → 2017-10-10 | Outpatient (CLI) | payer MEDICARE, MEDICAID ==
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
== END ==
LOC: RAD 16:27
PROVIDERS: ATTEND Optometrist
DX: H53.2 Diplopia (principal); J34.89 Other specified disorders of nose and nasal sinuses; Z98.890 Other specified postprocedural states
CPT/HCPCS: 70540; 70551

== ENCOUNTER 2017-12-12 09:48 | Outpatient (RCR) | payer MEDICARE, MEDICAID ==
[2017-12-12 09:59] LABS: BASOPHILS # (AUTO) 0.1 10^3/uL (0.0-0.1); BASOPHILS % (AUTO) 0 % (0-10); EOSINOPHILS # (AUTO) 0.2 10^3/uL (0.0-0.3); EOSINOPHILS % (AUTO) 2 % (0-10); HEMATOCRIT 34 % (35-52); HEMOGLOBIN 10.8 G/DL (11.5-16.0); LYMPHOCYTES # (AUTO) 3.9 X 10^3 (1.0-4.0); LYMPHOCYTES % (AUTO) 30 % (12-44); MEAN CORPUSCULAR HEMOGLOBIN 23 PG (25-34); MEAN CORPUSCULAR HGB CONC 32 G/DL (32-36); MEAN CORPUSCULAR VOLUME 72 FL (80-99); MEAN PLATELET VOLUME 9.4 FL (7.4-10.4); MONOCYTES # (AUTO) 1.6 X 10^3 (0.0-1.0); MONOCYTES % (AUTO) 12 % (0-12); NEUTROPHILS # (AUTO) 7.1 X 10^3 (1.8-7.8); NEUTROPHILS % (AUTO) 56 % (42-75); PLATELET COUNT 650 10^3/uL (130-400); RED CELL DISTRIBUTION WIDTH 17.4 % (10.0-14.5); WHITE BLOOD COUNT 12.8 10^3/uL (4.3-11.0)
[2017-12-12 10:26] LABS: ALANINE AMINOTRANSFERASE 22 U/L (0-55); ALBUMIN 3.7 GM/DL (3.2-4.5); ALKALINE PHOSPHATASE 88 U/L (40-136); BILIRUBIN,TOTAL 0.4 MG/DL (0.1-1.0); BUN/CREATININE RATIO 18; CALCIUM 9.9 MG/DL (8.5-10.1); CARBON DIOXIDE 19 MMOL/L (21-32); CHLORIDE 108 MMOL/L (98-107); CREATININE SERUM 0.89 MG/DL (0.60-1.30); GFR ESTIMATED > 60; GLUCOSE 134 MG/DL (70-105); POTASSIUM 4.1 MMOL/L (3.6-5.0); SODIUM 137 MMOL/L (135-145); TOTAL PROTEIN 6.1 GM/DL (6.4-8.2)
== END 2017-12-28 | disposition home or self-care (01) ==
LOC: ONC 09:48
PROVIDERS: ATTEND Internal Medicine Hematology & Oncology
DX: D72.829 Elevated white blood cell count, unspecified (principal); D47.3 Essential (hemorrhagic) thrombocythemia; I26.99 Other pulmonary embolism without acute cor pulmonale; F17.210 Nicotine dependence, cigarettes, uncomplicated; M79.7 Fibromyalgia; M06.9 Rheumatoid arthritis, unspecified; E78.5 Hyperlipidemia, unspecified; I25.10 Atherosclerotic heart disease of native coronary artery without angina pectoris; I12.9 Hypertensive chronic kidney disease with stage 1 through stage 4 chronic kidney disease, or unspecified chronic kidney disease; N18.9 Chronic kidney disease, unspecified; E11.22 Type 2 diabetes mellitus with diabetic chronic kidney disease; E11.65 Type 2 diabetes mellitus with hyperglycemia; F41.9 Anxiety disorder, unspecified; R23.2 Flushing; Z87.01 Personal history of pneumonia (recurrent); Z87.440 Personal history of urinary (tract) infections; Z79.899 Other long term (current) drug therapy; Z79.52 Long term (current) use of systemic steroids; Z79.82 Long term (current) use of aspirin
CPT/HCPCS: 36415; 80053; 83615; 85025; 99213

== ENCOUNTER → 2017-12-15 | Outpatient (CLI) | payer MEDICARE, MEDICAID ==
[~2017-12-15] MED LIST changes: +ALB0.5V IH; +DICL100G18 TP; +DULA0.75 SQ; +GABA600T2 PO; +INSU100I34 SQ; +VENL150C98 PO
--- NOTE | 2017-12-15 19:23 | Diagnostic Imaging Report ---
INDICATION: Routine screening. Comparison is made with prior mammogram from 11/21/2014 and 06/11/2013. 2-D and 3-D bilateral screening mammography was performed with CAD. The current study was also evaluated with a Computer Aided Detection (CAD) system. FINDINGS: Mild fibroglandular tissue is identified bilaterally. Benign calcifications are identified bilaterally. The parenchymal pattern is stable. No dominant mass or malignant-appearing microcalcifications are seen. The axillae are unremarkable. IMPRESSION: No mammographic features suspicious for malignancy are identified. ACR BI-RADS Category 2: Benign findings. Result letter will be mailed to the patient. Note: At least 10% of breast cancer is not imaged by mammography. Dictated by: Dictated on workstation # [id number]
== END ==
LOC: RAD 10:42
PROVIDERS: ATTEND Internal Medicine Hematology & Oncology
DX: Z12.31 Encounter for screening mammogram for malignant neoplasm of breast (principal)
CPT/HCPCS: 77067

== ENCOUNTER 2017-12-30 05:49 | Outpatient (CLI) | payer MEDICARE, MEDICAID ==
[~2017-12-30] VITALS: Ht 157.5 cm; Wt 75.3 kg
[~2017-12-30 05:49] MED LIST changes: -ALB0.5V IH; -DICL100G18 TP; -DULA0.75 SQ; -GABA600T2 PO; -INSU100I34 SQ; -VENL150C98 PO
[2017-12-30] MEDS ORDERED: INSU100I34 SQ (09:52)
[2017-12-30] MEDS ORDERED: TOPI50TA13 PO (09:59)
[2017-12-30] MEDS ORDERED: GABA600T2 PO (09:59)
[2017-12-30] MEDS ORDERED: VENL150C98 PO (09:59)
[2017-12-30] MEDS ORDERED: DICL100G18 TP (09:59)
[2017-12-30] MEDS ORDERED: DULA0.75 SQ (10:14)
[2017-12-30] MEDS ORDERED: ALB0.5V IH (10:14)
[2017-12-30] MEDS ORDERED: INSU100I14 SQ (10:14)
== END 2017-12-30 11:31 | disposition home or self-care (01) ==
LOC: PREOP 05:49
PROVIDERS: ATTEND Surgery
DX: Z01.818 Encounter for other preprocedural examination (principal)

== ENCOUNTER → 2018-01-21 | Outpatient (CLI) | payer MEDICARE, MEDICAID ==
[~2018-01-21] MED LIST changes: +ALB0.5V IH; +DICL100G18 TP; +DULA0.75 SQ; +GABA600T2 PO; +INSU100I34 SQ; +LANS30CA43 PO; +PRED5TAB PO; +VENL150C98 PO
[2018-01-21 11:50] LABS: ALANINE AMINOTRANSFERASE 23 U/L (0-55); ALBUMIN 4.2 GM/DL (3.2-4.5); ALKALINE PHOSPHATASE 96 U/L (40-136); BILIRUBIN,TOTAL 0.3 MG/DL (0.1-1.0); BUN/CREATININE RATIO 17; CALCIUM 10.1 MG/DL (8.5-10.1); CARBON DIOXIDE 21 MMOL/L (21-32); CHLORIDE 106 MMOL/L (98-107); CHOLESTEROL 129 MG/DL (< 200); CREATININE SERUM 0.95 MG/DL (0.60-1.30); GFR ESTIMATED > 60; GLUCOSE 128 MG/DL (70-105); HDL CHOLESTEROL 44 MG/DL (40-60); POTASSIUM 4.6 MMOL/L (3.6-5.0); SODIUM 138 MMOL/L (135-145); TOTAL PROTEIN 7.6 GM/DL (6.4-8.2); TRIGLYCERIDES 132 MG/DL (<150); VLDL CHOLESTEROL 26 MG/DL (5-40)
== END ==
LOC: CARD 10:50
PROVIDERS: ATTEND Internal Medicine Cardiovascular Disease
DX: E78.2 Mixed hyperlipidemia (principal); I25.10 Atherosclerotic heart disease of native coronary artery without angina pectoris; I10 Essential (primary) hypertension; E11.9 Type 2 diabetes mellitus without complications; J44.9 Chronic obstructive pulmonary disease, unspecified; D64.9 Anemia, unspecified; I08.1 Rheumatic disorders of both mitral and tricuspid valves; E66.9 Obesity, unspecified; Z68.30 Body mass index [BMI] 30.0-30.9, adult
CPT/HCPCS: 36415; 80053; 80061; 93306

== ENCOUNTER 2018-01-26 05:41 | Outpatient (CLI) | payer MEDICARE, MEDICAID ==
[~2018-01-26] VITALS: Ht 157.5 cm; Wt 75.3 kg
[~2018-01-26 05:41] MED LIST changes: -LANS30CA43 PO; -PRED5TAB PO
[2018-01-26] MEDS ORDERED: GABA-488 PO (09:52)
[2018-01-26] MEDS ORDERED: PRED5TAB PO (09:52)
[2018-01-26] MEDS ORDERED: LANS30CA43 PO (09:52)
== END 2018-01-26 09:57 | disposition home or self-care (01) ==
LOC: PREOP 05:41
PROVIDERS: ATTEND Surgery
DX: Z01.818 Encounter for other preprocedural examination (principal)

== ENCOUNTER → 2018-02-23 | Outpatient (CLI) | payer MEDICARE, MEDICAID ==
[~2018-02-23] MED LIST changes: +CATHETER FLUSH 10 ML SYR IV PRN; +LANS30CA43 PO; +PRED5TAB PO; +REGADENOSON 0.4 MG/5 ML SYR (LEXISCAN) IV ONE
[2018-02-23 08:40] LABS: CALCIUM 9.7 MG/DL (8.5-10.1); CREATININE SERUM 0.99 MG/DL (0.60-1.30); POTASSIUM 4.1 MMOL/L (3.6-5.0)
[2018-02-23 09:56] VITALS: BP 110/84
--- NOTE | 2018-02-23 16:02 | STRESS TEST ---
DATE OF SERVICE: 02/23/2018 LEXISCAN MYOVIEW STRESS TEST REPORT REFERRING PHYSICIAN: Dr. Twyla Calix. Baseline heart rate is 83, baseline blood pressure 121/65. Baseline EKG, sinus rhythm with no ischemic changes. SUMMARY: The patient was injected with 10.48 mCi of technetium-99 Myoview and the resting images were obtained. Then, she received a 0.4 mg of Lexiscan followed by 30.9 mCi of technetium-99 Myoview. During the test, there were no EKG changes. The resting and stress images were reviewed and compared in the short axis, horizontal long axis, and vertical long axis views. Review of the images showed decreased uptake involving the inferior wall and inferoapical segment, inferolateral and inferoseptum with subtle reversibility. SSS is 14. SDS is 3. TID value 1.13. On the gated images, the left ventricle appeared to be prominent with hypokinesia at the inferior wall. Calculated ejection fraction is 36%. CONCLUSION: 1. The patient tolerated Lexiscan well. 2. Fixed defect involving the whole inferior wall, inferolateral and inferior septum with mild periinfarct ischemia. 3. Prominent left ventricle with hypokinesia at the inferior wall. Calculated ejection fraction was 36%. CC: Dr. Twyla Calix (distribution did not occur). Job ID: [id number] DocumentID: [id number] Dictated Date: 02/23/2018 12:39:06 Contract Administrative Assistant Date: 02/23/2018 16:01:07 Dictated By: AKBAR WILSON MD
== END ==
LOC: RAD 08:09
PROVIDERS: ATTEND Physician Assistant
DX: I11.9 Hypertensive heart disease without heart failure (principal); E78.2 Mixed hyperlipidemia; I25.10 Atherosclerotic heart disease of native coronary artery without angina pectoris
CPT/HCPCS: 36415; 78452; 80048; 93017

== ENCOUNTER 2018-03-16 05:49 | Outpatient (CLI) | payer MEDICARE, MEDICAID ==
[~2018-03-16] VITALS: Ht 157.5 cm; Wt 74.4 kg
[~2018-03-16 05:49] MED LIST changes: -CATHETER FLUSH 10 ML SYR IV PRN; -REGADENOSON 0.4 MG/5 ML SYR (LEXISCAN) IV ONE
[2018-03-16] MEDS ORDERED: SACU1TAB PO (12:43)
== END 2018-03-16 12:53 | disposition home or self-care (01) ==
LOC: PREOP 05:49
PROVIDERS: ATTEND Surgery
DX: Z01.818 Encounter for other preprocedural examination (principal)

== ENCOUNTER 2018-03-18 12:56 | Day surgery (SDC) | payer MEDICARE, MEDICAID ==
[~2018-03-18] VITALS: Ht 157.5 cm; Wt 74.4 kg
[~2018-03-18 12:56] MED LIST changes: +SACU1TAB PO
--- OUTSIDE RECORDS SUMMARY | 2018-03-18 13:00 | XMS REPORT ---
Author Author LEXII HILLS [facility] Address [address] [place] [address] Care Team Providers Care Rough Rounder Machine Name Role Phone LEXII HILLS Unavailable PROBLEMS Type Condition ICD9-CM Code VHN66-CY Code Onset Dates Condition Status SNOMED Code Problem Thrombocytopenia D69.6 Active 079786292 Problem Tobacco abuse Z72.0 Active 264785289 Problem technician terminal and repeater 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.4 Active 305242007 Problem Coronary artery disease involving [place] coronary artery of [place] heart without angina pectoris I25.10 Active 4391050439973 Problem Chronic idiopathic pain syndrome G89.29 Active 864062274 Problem Post traumatic stress disorder F43.10 Active 88291068 Problem Rheumatoid arthritis, involving unspecified site, unspecified rheumatoid factor presence M06.9 Active 71959507 Problem Type 2 diabetes mellitus with unspecified complications E11.8 Active 26218963 Problem Moderate episode of recurrent major depressive disorder F33.1 Active 170630281 Problem Current chronic use of systemic steroids Z79.52 Active [id number] ALLERGIES No Information ENCOUNTERS Encounter Location Date Diagnosis [place] [id number] [place] [address] May, [facility] [id number] [place] [address] Feb, [facility] [id number] [place] [address] Feb, [facility] [address] [address] Feb, Post traumatic stress disorder F43.10 [facility] [id number] [place] [address] Jan, [facility] [address] [address] Jan, Type 2 diabetes mellitus with unspecified complications E11.8 [facility] [id number] [place] [address]- [address] Jan, Well woman exam with routine gynecological exam Z01.419 and Acute non-recurrent frontal sinusitis J01.10 [facility] [id number] [place] [address]- [address] Dec, [facility] [id number] [place] [address]- [address] Dec, [facility] [id number] [place] [address]- [address] Dec, [facility] [id number] [place] [address]- [address] Nov, [facility] [id number] [place] [address] 90[address]- [address] Oct, [facility] [id number] [place] [address]- [address]60 Oct, [facility] [id number] [place] [address]- [address] Oct, [facility] [id number] [place] [address]- [address]656 Oct, [facility] [id number] [place] [address] 8[address]- [address] Oct, Type 2 diabetes mellitus with unspecified complications E11.8 ; Current chronic use of systemic steroids Z79.52 ; Chronic idiopathic pain syndrome G89.29 and Fall W19.XXXA [facility] [id number] [place] [address]- [address] Oct, Angelina [facility] [address] [place] [address] Oct, [facility] [id number] [place] [address] 86[address]- 2805 Sep, Post traumatic stress disorder F43.10 [facility] [id number] [address] 17 Sep, 2017 Type 2 diabetes mellitus with unspecified complications E11.8 and detention 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.4 [facility] [address] [address] Sep, Type 2 diabetes mellitus with unspecified complications E11.8 ; detention 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.4 ; Current chronic use of systemic steroids Z79.52 and Moderate episode of recurrent major depressive disorder F33.1 [facility] [address] [address] Sep, [facility] [address] [address] Sep, [facility] [id number] [address] Aug, [facility] [address] [address] Aug, [facility] [address] [address] Aug, Type 2 diabetes mellitus with unspecified complications E11.8 ; technician terminal and repeater 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.4 ; Current chronic use of systemic steroids Z79.52 ; Tobacco abuse Z72.0 ; Rheumatoid arthritis, involving unspecified site, unspecified rheumatoid factor presence M06.9 ; Thrombocytopenia D69.6 and Coronary artery disease involving [place] coronary artery of [place] heart without angina pectoris I25.10 [place] [address] [address] July, [place] [address] [address] Jun, [facility] [address] [address] Jun, [place] [address] [address] July, [facility] [address] [facility] [id number] [address] Feb, [facility] [address] [facility] [id number] [address] Feb, [facility] [address] [facility] [id number] [address] Jan, [facility] [address] [facility] [id number] [address] Jan, [facility] [address] [facility] [id number] [address] Jan, [facility] [address] [facility] [id number] [address] Jan, [facility] [address] [address] Jan, [facility] [id number] [address] Aug, [facility] [id number] [address] July, IMMUNIZATIONS No Known Immunizations SOCIAL HISTORY Never Assessed REASON FOR VISIT refill PLAN OF CARE VITAL SIGNS MEDICATIONS Medication Instructions Dosage Frequency Start Date End Date Duration Status Lansoprazole 30 MG Orally Once a day 1 capsule 24h 30 day(s) Active RESULTS No Results PROCEDURES No Known procedures INSTRUCTIONS MEDICATIONS ADMINISTERED No Known Medications MEDICAL (GENERAL) HISTORY Type Description Date Medical History Diabetes Type II Medical History Hypertension Medical History CAD Medical History detention use of steroids Surgical History Appendectomy 2010 Surgical History Cholecystectomy 2011 Surgical History Hysterectomy 2012 Surgical History 3 Stents placed after heart attack 2013 Surgical History Kidney stone removal 2016 Surgical History Cataracts 2014 Surgical History Left breast biopsy 2010 Surgical History Colon Resection 2015 Surgical History Another stent placed 2016 Hospitalization History Sepsis x3 Hospitalization History MRSA 2015 Hospitalization History Pneumonia x3 Hospitalization History Kidney Failure Hospitalization History Pneumonia 2018
--- OUTSIDE RECORDS SUMMARY | 2018-03-18 13:00 | XMS REPORT ---
Author Author DIXIE ZELAYA [facility] Address [address] [place] [address] Care Team Providers Care Architectural Draftsman Name Role Phone DIXIE ZELAYA Unavailable PROBLEMS Type Condition ICD9-CM Code XGU24-OA Code Onset Dates Condition Status SNOMED Code Problem Thrombocytopenia D69.6 Active 220501046 Problem Tobacco abuse Z72.0 Active 227064376 Problem intermediate card tender 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.4 Active 053787521 Problem Coronary artery disease involving [place] coronary artery of cabazon heart without angina pectoris I25.10 Active 8341263748081 Problem Chronic idiopathic pain syndrome G89.29 Active 131005151 Problem Post traumatic stress disorder F43.10 Active 01863115 Problem Rheumatoid arthritis, involving unspecified site, unspecified rheumatoid factor presence M06.9 Active 70690760 Problem Type 2 diabetes mellitus with unspecified complications E11.8 Active 02636927 Problem Moderate episode of recurrent major depressive disorder F33.1 Active 501480809 Problem Current chronic use of systemic steroids Z79.52 Active [id number] ALLERGIES No Information ENCOUNTERS Encounter Location Date Diagnosis [place] [id number] [place] [address] 56578- 6128 Feb, [facility] [id number] [place] [address] 19099- 2923 Jan, [facility] [id number] [place] [address] 73476- 5641 Dec, [facility] [address] 55249- 6820 Dec, [facility] [id number] [place] [address] 62046- 9472 Dec, [facility] [address] [address]282- 2006 Nov, [facility] [address] [address]- 5275 Oct, [facility] [id number] [place] [address] 83171- 4600 Oct, [facility] [address] [place] [address] 80154- 7765 Oct, [facility] [id number] [place] [address] 13879- 4782 Oct, [place] [address] [place] [address] 29191- 0045 Oct, Type 2 diabetes mellitus with unspecified complications E11.8 ; Current chronic use of systemic steroids Z79.52 ; Chronic idiopathic pain syndrome G89.29 and Fall W19.XXXA [place] [id number] [place] [address] 81763- 1923 Oct, [facility] [address] [place] [address] Oct, [facility] [id number] [place] [address] 70857- 1070 Sep, Post traumatic stress disorder F43.10 [place] [address] [place] [address] 46565- 5875 Sep, Type 2 diabetes mellitus with unspecified complications E11.8 and halfway 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.4 [place] [address] [place] [address] 78177- 5246 Sep, Type 2 diabetes mellitus with unspecified complications E11.8 ; halfway 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.4 ; Current chronic use of systemic steroids Z79.52 and Moderate episode of recurrent major depressive disorder F33.1 [place] [address] [place] [address] 50065- 3357 Sep, [facility] [address] [place] [address] 59523- 4958 Sep, [place] [address] [address] 8088 Aug, [facility] [address] [address] 0843 18 Aug, 2017 [facility] [address], [place] [address]- 3843 13 Aug, 2017 Type 2 diabetes mellitus with unspecified complications E11.8 ; intermediate card tender 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.4 ; Current chronic use of systemic steroids Z79.52 ; Tobacco abuse Z72.0 ; Rheumatoid arthritis, involving unspecified site, unspecified rheumatoid factor presence M06.9 ; Thrombocytopenia D69.6 and Coronary artery disease involving cabaz[place] coronary artery of cabazon heart without angina pectoris I25.10 [facility] [address] [address] 67[address] July, [facility] [id number] [place] [address] 61204- 6053 14 Jun, 2014 [facility] [address] [address] 5699 Jun, [facility] [address] [place] [address] 75445- 6104 July, [facility] [address], [place] [address] 6998 14 Feb, 2010 [facility] [address], [place] [address] 3602 Feb, [facility] [address], [place] [address] 8061 Jan, [facility] [address], [place] [address] 2187 Jan, [facility] [address], [place] [address]- 3770 17 Jan, 2009 [facility] [address], [place] [address]- 3499 Jan, [facility] [address] [facility] [id number] [place] [address] 0335 10 Jan, 2009 [facility] [address] [facility] [id number] [place] [address]- 3270 11 Aug, 2008 [facility] [address] [facility] [id number] [place] [address]- 1271 July, IMMUNIZATIONS No Known Immunizations SOCIAL HISTORY Never Assessed REASON FOR VISIT A1C PLAN OF CARE VITAL SIGNS MEDICATIONS Unknown Medications RESULTS No Results PROCEDURES No Known procedures INSTRUCTIONS MEDICATIONS ADMINISTERED No Known Medications MEDICAL (GENERAL) HISTORY Type Description Date Medical History Diabetes Type II Medical History Hypertension Medical History CAD Medical History intermediate card tender use of steroids Surgical History Appendectomy 2010 Surgical History Cholecystectomy 2010 Surgical History Hysterectomy 2011 Surgical History 3 Stents placed after heart attack 2013 Surgical History Kidney stone removal 2016 Surgical History Cataracts 2014 Surgical History Left breast biopsy 2010 Surgical History Colon Resection 2015 Hospitalization History Sepsis x3 Hospitalization History MRSA 2015 Hospitalization History Pneumonia x3 Hospitalization History Kidney Failure
--- OUTSIDE RECORDS SUMMARY | 2018-03-18 13:00 | XMS REPORT ---
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.4 Active 282378556 Problem Coronary artery disease involving tribe coronary artery of tribe heart without angina pectoris I25.10 Active 8465396615551 Problem Chronic idiopathic pain syndrome G89.29 Active 529118887 Problem Post traumatic stress disorder F43.10 Active 02603515 Problem Rheumatoid arthritis, involving unspecified site, unspecified rheumatoid factor presence M06.9 Active 94052516 Problem Type 2 diabetes mellitus with unspecified complications E11.8 Active 33666627 Problem Moderate episode of recurrent major depressive disorder F33.1 Active 764777836 Problem Current chronic use of systemic steroids Z79.52 Active [id number] ALLERGIES No Information ENCOUNTERS Encounter Location Date Diagnosis [place] [id number] [place] [address] 28665- 2284 May, [facility] [place] [address] [place] [address] 30807- 9964 Feb, [facility] [place] [address] [place] [address] 77272- 4565 Feb, [facility] [place] [id number] [place] [address] 24816- 4809 Feb, Post traumatic stress disorder F43.10 [facility] [place] [address] [place] [address] 93944- 5375 Jan, [facility] [place] [id number] [place] [address] 86207- 8596 Jan, Type 2 diabetes mellitus with unspecified complications E11.8 [facility] [place] [id number] [place] [address] 46372- 0966 Jan, Well woman exam with routine gynecological exam Z01.419 and Acute non-recurrent frontal sinusitis J01.10 [facility] [place] [id number] [place] [address] 93650- 4165 Dec, [facility] [place] [id number] [place] [address] 75304- 2469 Dec, [facility] [place] [id number] [place] [address] 92073- 2648 Dec, [facility] [place] [id number] [place] [address] 42043- 4554 Nov, [facility] [place] [id number] [place] [address] 11255- 8107 Oct, [facility] [place] [id number] [place] [address] 19545- 4661 Oct, [facility] [place] [id number] [place] [address] 72558- 2736 Oct, [facility] [place] [id number] [place] [address] 41913- 3992 Oct, [facility] [place] [id number] [place] [address] 95521- 3605 Oct, Type 2 diabetes mellitus with unspecified complications E11.8 ; Current chronic use of systemic steroids Z79.52 ; Chronic idiopathic pain syndrome G89.29 and Fall W19.XXXA [facility] [place] [id number] [place] [address] 97264- 8713 Oct, Angelina [facility] [address] [place] [address] Oct, [facility] [place] [id number] [place] [address] 49807- 3203 Sep, Post traumatic stress disorder F43.10 [facility] [place] [address], [place] [address]- 9806 17 Sep, 2017 Type 2 diabetes mellitus with unspecified complications E11.8 and rat exterminator 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.4 [facility] [place] [address], [place] [address]- 2023 11 Sep, 2017 Type 2 diabetes mellitus with unspecified complications E11.8 ; care home 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.4 ; Current chronic use of systemic steroids Z79.52 and Moderate episode of recurrent major depressive disorder F33.1 [facility] [place] [address], [place] [address]- 4262 Sep, [place] [address], [place] [address]- 3131 Sep, [facility] [place] [address], [place] [address]- 0943 Aug, [facility] [place] [address], [place] [address]- 7038 Aug, [facility] [place] [address], [place] [address]- 1709 Aug, Type 2 diabetes mellitus with unspecified complications E11.8 ; care home 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.4 ; Current chronic use of systemic steroids Z79.52 ; Tobacco abuse Z72.0 ; Rheumatoid arthritis, involving unspecified site, unspecified rheumatoid factor presence M06.9 ; Thrombocytopenia D69.6 and Coronary artery disease involving tribe coronary artery of tribe heart without angina pectoris I25.10 [place] [address], [place] [address]- 9976 July, [facility] [place] [address], [place] [address]- 1932 Jun, [facility] [place] [address], [place] [address]- 9030 Jun, [facility] [place] [id number] [place] [address] 45308- 6424 July, [facility] [place] [address] [facility] [id number]- 9152 14 Feb, 2010 [facility] [place] [address] [facility] [id number], [place] [address]- 9746 Feb, [facility] [place] [address] [facility] [id number]196[place]- 8550 Jan, [facility] [place] [address] [facility] [id number], [place] [address]- 2263 Jan, [facility] [place] [address] [facility] [id number] 6180 Jan, [facility] [place] [address], [place] [address]- 1193 Jan, [facility] [place] [address], [place] [address]- 4670 Jan, [facility] [place] [address] [place] [id number], [place] [address]- 8075 Aug, [facility] [place] [id number], [place] [address]- 9728 July, IMMUNIZATIONS No Known Immunizations SOCIAL HISTORY Never Assessed REASON FOR VISIT refill PLAN OF CARE VITAL SIGNS MEDICATIONS Medication Instructions Dosage Frequency Start Date End Date Duration Status Venlafaxine HCl ER 150 MG Orally Once a day 1 capsule with food 24h 30 days Active RESULTS No Results PROCEDURES No Known procedures INSTRUCTIONS MEDICATIONS ADMINISTERED No Known Medications MEDICAL (GENERAL) HISTORY Type Description Date Medical History Diabetes Type II Medical History Hypertension Medical History CAD Medical History care home use of steroids Surgical History Appendectomy 2010 [...]
--- OUTSIDE RECORDS SUMMARY | 2018-03-18 13:00 | XMS REPORT ---
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.4 Active 306861725 Problem Coronary artery disease involving [place] coronary artery of [place] heart without angina pectoris I25.10 Active 4996004686153 Problem Chronic idiopathic pain syndrome G89.29 Active 141299909 Problem Post traumatic stress disorder F43.10 Active 05313827 Problem Rheumatoid arthritis, involving unspecified site, unspecified rheumatoid factor presence M06.9 Active 72093712 Problem Type 2 diabetes mellitus with unspecified complications E11.8 Active 51986800 Problem Moderate episode of recurrent major depressive disorder F33.1 Active 763869033 Problem Current chronic use of systemic steroids Z79.52 Active [id number] ALLERGIES No Information ENCOUNTERS Encounter Location Date Diagnosis [place] [id number] [place] [address] 78227- 1308 May, [place] [id number] [place] [address] 20064- 2804 Feb, [place] [address] [place] [place] [address] 22205- 1996 Jan, [place] [address] 90784- 5656 Jan, Type 2 diabetes mellitus with unspecified complications E11.8 [place] [id number] [place] [address] 06989- 3953 Jan, Well woman exam with routine gynecological exam Z01.419 and Acute non-recurrent frontal sinusitis J01.10 [facility] [address], [place] [address]- 8066 Dec, [facility] [id number] [place] [address] 03780- 2059 Dec, [facility] [address] [place] [address] 11447- 7272 Dec, [facility] [id number] [place] [address] 97808- 5838 Nov, [facility] [id number] [place] [address] 60736- 8350 Oct, [facility] [id number] [place] [address] 70420- 3423 Oct, [facility] [address] [place] [address] 85777- 2175 Oct, [facility] [id number] [place] [address] 37241- 6406 Oct, [facility] [address] [place] [address] 50003- 2824 Oct, Type 2 diabetes mellitus with unspecified complications E11.8 ; Current chronic use of systemic steroids Z79.52 ; Chronic idiopathic pain syndrome G89.29 and Fall W19.XXXA [facility] [address] [place] [address] 52889- 6387 Oct, [facility] [address] [place] [address] Oct, [facility] [address] [place] [address] 71495- 6127 Sep, Post traumatic stress disorder F43.10 [facility] [address] [place] [address] 70519- 8597 Sep, Type 2 diabetes mellitus with unspecified complications E11.8 and [facility] 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.4 [facility] [address] [address]- 0297 Sep, Type 2 diabetes mellitus with unspecified complications E11.8 ; terminal operator 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.4 ; Current chronic use of systemic steroids Z79.52 and Moderate episode of recurrent major depressive disorder F33.1 [facility] [address], [place] [address]- 3780 Sep, [facility] [id number] [place] [address] 26824- 4049 Sep, [facility] [id number] [place] [address] 91498- 6836 Aug, [facility] [id number] [place] [address] 31306- 8849 Aug, [facility] [id number] [address]- 0628 Aug, Type 2 diabetes mellitus with unspecified complications E11.8 ; terminal operator 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.4 ; Current chronic use of systemic steroids Z79.52 ; Tobacco abuse Z72.0 ; Rheumatoid arthritis, involving unspecified site, unspecified rheumatoid factor presence M06.9 ; Thrombocytopenia D69.6 and Coronary artery disease involving [place] coronary artery of [place] heart without angina pectoris I25.10 [facility] [address], [place] [address]- 9172 July, [facility] [address], [place] [address]- 1818 Jun, [facility] [address], [place] [address]- 4602 Jun, [facility] [address], [place] [address]- 1690 July, [facility] [address], [place] [address]- 7914 Feb, [facility] [address], [place] [address]- 6916 Feb, [place] [address] [facility] [id number] [address]- 0315 18 Jan, 2010 [facility] [address] [id number] [address]- 7257 18 Jan, 2010 [facility] [address] [facility] [id number] [address]- 8077 17 Jan, 2009 [facility] [id number] [address]- 9205 Jan, [facility] [address] [facility] [id number] [address]- 9926 Jan, [facility] [id number] [address]- 8963 Aug, [facility] [address] [facility] [id number] [address]- 1937 July, IMMUNIZATIONS No Known Immunizations SOCIAL HISTORY Never Assessed REASON FOR VISIT Refill request PLAN OF CARE VITAL SIGNS MEDICATIONS Medication Instructions Dosage Frequency Start Date End Date Duration Status Ibuprofen 800 MG Orally Three times a day 1 tablet with food or milk as needed 8h 30 days Active RESULTS No Results PROCEDURES No Known procedures INSTRUCTIONS MEDICATIONS ADMINISTERED No Known Medications MEDICAL (GENERAL) HISTORY Type Description Date Medical History Diabetes Type II Medical History Hypertension Medical History CAD Medical History terminal operator use of steroids Surgical History Appendectomy 2010 Surgical History Cholecystectomy 2010 Surgical History Hysterectomy 2012 Surgical History 3 Stents placed after heart attack 2012 Surgical History Kidney stone removal 2016 Surgical History Cataracts 2014 Surgical History Left breast biopsy 2010 Surgical History Colon Resection 2015 Surgical History Another stent placed 2016 Hospitalization History Sepsis x3 Hospitalization History MRSA 2015 Hospitalization History Pneumonia x3 Hospitalization History Kidney Failure Hospitalization History Pneumonia 2018
--- OUTSIDE RECORDS SUMMARY | 2018-03-18 13:00 | XMS REPORT ---
Author Author DIXIE ZELAYA [facility] Address [address] 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1 Active 474258221 Problem Current chronic use of systemic steroids Z79.52 Active [id number] ALLERGIES No Information ENCOUNTERS Encounter Location Date Diagnosis [place] [id number] [address] May, [facility] [id number] [place] [address] 43844- 8826 Feb, [facility] [id number] [place] [address] 97530- 1065 Feb, Encounter for immunization Z23 [facility] [address] 36[address]- 5643 Feb, [facility] [address] 23463- 8384 Feb, [facility] [address] 93332- 2620 Feb, Post traumatic stress disorder F43.10 [facility] [id number] [place] [address] 31925- 4604 Jan, [facility] [id number] [place] [address] 06407- 0421 Jan, Type 2 diabetes mellitus with unspecified complications E11.8 [facility] [id number] [place] [address] 05397- 4233 Jan, Well woman exam with routine gynecological exam Z01.419 and Acute non-recurrent frontal sinusitis J01.10 [facility] [id number] [place] [address] 294478- 4758 Dec, [facility] [id number] [place] [address] 63137- 6050 Dec, [facility] [id number] [place] [address] 77644- 7152 Dec, [facility] [id number] [place] [address] 83096- 7840 Nov, [facility] [id number] [place] [address] 73521- 0989 Oct, [facility] [id number] [place] [address] 50087- 8680 Oct, [facility] [id number] [place] [address] 28436- 0220 Oct, [facility] [id number] [place] [address] 34697- 4800 Oct, [facility] [id number] [place] [address] 62459- 0400 Oct, Type 2 diabetes mellitus with unspecified complications E11.8 ; Current chronic use of systemic steroids Z79.52 ; Chronic idiopathic pain syndrome G89.29 and Fall W19.XXXA [facility] [id number] [place] [address] 41707- 4278 Oct, [facility] [address] [place] [address] Oct, [facility] [id number] [place] [address] 89990- 5339 Sep, Post traumatic stress disorder F43.10 [facility] [id number] [place] [address] 28894- 3017 Sep, Type 2 diabetes mellitus with unspecified complications E11.8 and [facility] 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.4 [place] [id number] [place] [address] 61194- 3429 Sep, Type 2 diabetes mellitus with unspecified complications E11.8 ; [facility] 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.4 ; Current chronic use of systemic steroids Z79.52 and Moderate episode of recurrent major depressive disorder F33.1 [place] [id number] [place] [address] 89477- 2070 Sep, [place] [id number] [place] [address] 07906- 7304 Sep, [place] [address] [id number] [place] [address] 32609- 6468 Aug, [place] [address] [place] [address] 60055- 5793 Aug, [place] [address] [place] [address] 81397- 7240 Aug, Type 2 diabetes mellitus with unspecified complications E11.8 ; predatory animal exterminator 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.4 ; Current chronic use of systemic steroids Z79.52 ; Tobacco abuse Z72.0 ; Rheumatoid arthritis, involving unspecified site, unspecified rheumatoid factor presence M06.9 ; Thrombocytopenia D69.6 and Coronary artery disease involving [place] coronary artery of [place] heart without angina pectoris I25.10 [place] [address] [place] [address] 33926- 9190 July, [place] [address] [place] [address] [id number] [place] [address] 07691- 2406 14 Jun, 2014 [facility] [address] [place] [id number] [address] 7266 Jun, [facility] [address] [address] 2441 July, [facility] [address] [address] 8552 14 Feb, 2010 [facility] [address] [place] [address] 73446- 4964 Feb, [facility] [address] [address]- 9735 Jan, [facility] [address] [place] [address] 932893- 0705 Jan, [facility] [address] [place] [address] 730096- 2830 Jan, [facility] [address] [address]- 4384 Jan, [facility] [address] [address]- 5395 Jan, [facility] [address] [address]- 9302 Aug, [facility] [address] [place] [address] [id number] [address]64 July, IMMUNIZATIONS Vaccine Route Administration Date Status FLULAVAL QUAD 0.5ML (6 MO AND UP) 2017 IM Intramuscular Mar 11, 2018 Administered SOCIAL HISTORY Never Assessed REASON FOR VISIT Flu shot-ROSIO burgess PLAN OF CARE VITAL SIGNS MEDICATIONS Medication Instructions Dosage Frequency Start Date End Date Duration Status Test strips 8h Unknown Albuterol Sulfate (2.5 MG/3ML) 0.083% Inhalation Three times a day 3 ml as needed 8h Unknown NovoLog Flexpen 100 UNIT/ML Subcutaneous 3 times a day Inject 12 units with meals 8h 30 days Unknown Topiramate 50 MG Orally Twice a day 1 tablet 12h Unknown Promethazine-DM 6.25-15 MG/5ML Orally every 6 hrs 5 ml as needed 6h Unknown Metoprolol Tartrate 25 MG Orally Twice a day 1 tablet with food 12h Unknown Ibuprofen 800 MG Orally Three times a day 1 tablet with food or milk as needed 8h 30 days Unknown CycloSPORINE 0.05 % Ophthalmic Twice a day 1 drop into affected eye 12h Unknown Trulicity 0.75 MG/0.5ML Subcutaneous once weekly 1 injection Oct, May, 30 days Unknown Insulin Glargine 100 UNIT/ML Subcutaneous at bedtime 35 units Unknown Ondansetron 4 MG Orally every 6 hrs 1 tablet 6h 4 Unknown Clonazepam 0.5 MG Orally Once a day 1 tablet at bedtime 24h 08 Oct, 2017 28 days Unknown Xarelto 15 MG Orally Once a day 1 tablet with food 24h Unknown Aspir-81 81 MG Orally Once a day 1 tablet 24h Unknown Lansoprazole 30 MG Orally Once a day 1 capsule 24h 30 day(s) Unknown ReliOn Blood Glucose Test - as directed 6h Sep, Unknown Fenofibrate Micronized 134 MG Orally Once a day 1 capsule with a meal 24h Unknown Venlafaxine HCl ER 150 MG Orally Once a day 1 capsule with food 24h 30 days Unknown Lancets Unknown Atorvastatin Calcium 40 MG Orally Once a day 1 tablet 24h Unknown Gabapentin 300 MG Orally Twice a day 1 capsule 12h 30 days Unknown RESULTS No Results PROCEDURES Procedure Date Ordered Result Body Site FLULAVAL QUAD 0.5ML (6 MO AND UP) 2017Mar 11, 2018 SINGLE IMMUNIZATION ADMIN Mar 11, 2018 INSTRUCTIONS MEDICATIONS ADMINISTERED No Known Medications MEDICAL (GENERAL) HISTORY Type Description Date Medical History Diabetes Type II Medical History Hypertension Medical History CAD Medical History predatory animal exterminator use of steroids Surgical History Appendectomy 2010 [...] Hospitalization History Kidney Failure Hospitalization History Pneumonia 2017
--- OUTSIDE RECORDS SUMMARY | 2018-03-18 13:00 | XMS REPORT ---
Author Author DIXIE ZELAYA Organization [facility] Address [address] 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.4 Active 017969027 Problem Coronary artery disease involving [place] coronary artery of [place] heart without angina pectoris I25.10 Active 2517281711600 Problem Chronic idiopathic pain syndrome G89.29 Active 724400124 Problem Post traumatic stress disorder F43.10 Active 33374735 Problem Rheumatoid arthritis, involving unspecified site, unspecified rheumatoid factor presence M06.9 Active 72259301 Problem Type 2 diabetes mellitus with unspecified complications E11.8 Active 21566758 Problem Moderate episode of recurrent major depressive disorder F33.1 Active 234114496 Problem Current chronic use of systemic steroids Z79.52 Active [id number] ALLERGIES No Information ENCOUNTERS Encounter Location Date Diagnosis [place] [address] [place] [id number] [place] [address] 30708- 0380 May, [place] [address] [place] [id number] [place] [address] 50857- 1182 Feb, [place] [address] [place] [id number] [place] [address] 87619- 3791 Jan, Type 2 diabetes mellitus with unspecified complications E11.8 [place] [address] [place] [id number] [place] [address] 83845- 3761 Jan, Well woman exam with routine gynecological exam Z01.419 and Acute non-recurrent frontal sinusitis J01.10 [place] [address] 97277- 2584 Dec, [facility] [address] [address]- 8049 Dec, [facility] [address] [place] [address] 29760- 4111 Dec, [facility] [address] [place] [address] 75701- 6223 Nov, [facility] [address] [id number] [place] [address] 37670- 3876 Oct, [facility] [address] [place] [address] 79683- 2600 Oct, [facility] [address] [place] [id number] [place] [address] 82954- 1776 Oct, [facility] [address] [address] [id number] [place] [address] 04264- 3282 Oct, [facility] [address] [place] [id number] [place] [address] 80291- 3159 Oct, Type 2 diabetes mellitus with unspecified complications E11.8 ; Current chronic use of systemic steroids Z79.52 ; Chronic idiopathic pain syndrome G89.29 and Fall W19.XXXA [facility] [address] [place] [address] 90812- 8270 Oct, [facility] [address] [place] [address] Oct, [facility] [address] [place] [address] 13057- 7123 Sep, Post traumatic stress disorder F43.10 [facility] [address] [place] [id number] [place] [address] 16874- 3054 Sep, Type 2 diabetes mellitus with unspecified complications E11.8 and 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.4 [facility] [address] [address]- 1247 Sep, Type 2 diabetes mellitus with unspecified complications E11.8 ; 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.4 ; Current chronic use of systemic steroids Z79.52 and Moderate episode of recurrent major depressive disorder F33.1 [facility] [address] [address]- 9781 Sep, [facility] [address] [place] [address] [id number] [address]- 5496 Sep, [facility] [address] [place] [id number] [place] [address] 50313- 8715 Aug, [facility] [address] [place] [id number] [place] [address] 64716- 9097 Aug, [facility] [address] [place] [id number] [place] [address] 82709- 1236 Aug, Type 2 diabetes mellitus with unspecified complications E11.8 ; detention 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.4 ; Current chronic use of systemic steroids Z79.52 ; Tobacco abuse Z72.0 ; Rheumatoid arthritis, involving unspecified site, unspecified rheumatoid factor presence M06.9 ; Thrombocytopenia D69.6 and Coronary artery disease involving [place] coronary artery of [place] heart without angina pectoris I25.10 [facility] [address] [place] [id number] [address]- 9691 July, [facility] [address] [address]- 2884 Jun, [facility] [address] [address]- 9360 Jun, [facility] [address] [address]- 6064 July, [facility] [address] [address]- 5102 Feb, [facility] [address] 4286 Feb, [facility] [address] [address]- 0489 Jan, [place] [address] [facility] [id number] [address]42 18 Jan, 2010 [facility] [address] [facility] [id number] [address]- 3117 17 Jan, 2009 [facility] [address] [facility] [id number] [address]- 9052 10 Jan, 2009 [facility] [address] [facility] [id number] [address]- 0833 10 Jan, 2009 [facility] [address] [facility] [id number] [address]- 1474 Aug, [facility] [address] [facility] [id number] [place] [address]- 4978 July, IMMUNIZATIONS No Known Immunizations SOCIAL HISTORY Never Assessed REASON FOR VISIT Refill request PLAN OF CARE VITAL SIGNS MEDICATIONS Medication Instructions Dosage Frequency Start Date End Date Duration Status NovoLog Flexpen 100 UNIT/ML Subcutaneous 3 times a day Inject 12 units with meals 8h 30 days Active RESULTS No Results [...]
--- OUTSIDE RECORDS SUMMARY | 2018-03-18 13:00 | XMS REPORT ---
Author Author DIXIE ZELAYA Organization [facility] Address [address] 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.4 Active 864731237 Problem Coronary artery disease involving [place] coronary artery of [place] heart without angina pectoris I25.10 Active 1672215257974 Problem Chronic idiopathic pain syndrome G89.29 Active 452008955 Problem Post traumatic stress disorder F43.10 Active 28650903 Problem Rheumatoid arthritis, involving unspecified site, unspecified rheumatoid factor presence M06.9 Active 97501227 Problem Type 2 diabetes mellitus with unspecified complications E11.8 Active 53037718 Problem Moderate episode of recurrent major depressive disorder F33.1 Active 426759057 Problem Current chronic use of systemic steroids Z79.52 Active [id number] ALLERGIES No Information ENCOUNTERS Encounter Location Date Diagnosis [facility] [address] [place] [address] 71176- 3806 May, [facility] [address] [place] [address] 23685- 9387 Feb, [facility] [address] [place] [address] 14258- 8270 Feb, [facility] [address] 63086- 4306 Feb, [facility] [address] [place] [id number] [place] [address] 93321- 3723 Feb, Post traumatic stress disorder F43.10 [facility] [address] [id number] [place] [address] 50636- 9649 Jan, [facility] [address] [place] [address] 25104- 9853 Jan, Type 2 diabetes mellitus with unspecified complications E11.8 [facility] [id number] [place] [address] 91288- 2252 Jan, Well woman exam with routine gynecological exam Z01.419 and Acute non-recurrent frontal sinusitis J01.10 [facility] [address] [place] [id number] [place] [address] 56488- 5835 Dec, [facility] [id number] [place] [address] 74927- 6792 Dec, [facility] [address] [id number] [place] [address] 72495- 2869 Dec, [facility] [id number] [place] [address] 55438- 8176 Nov, [facility] [id number] [place] [address] 76420- 5368 Oct, [facility] [id number] [place] [address] 11076- 4997 Oct, [facility] [id number] [place] [address] 30259- 9847 Oct, [facility] [id number] [place] [address] 01914- 5121 Oct, [facility] [id number] [place] [address] 32662- 7404 Oct, Type 2 diabetes mellitus with unspecified complications E11.8 ; Current chronic use of systemic steroids Z79.52 ; Chronic idiopathic pain syndrome G89.29 and Fall W19.XXXA [facility] [address] [place] [address] 83726- 5399 Oct, [facility] [address] [place] [address] Oct, [facility] [address] [address]- 5769 Sep, Post traumatic stress disorder F43.10 [facility] [address] [place] [address] 42840- 5462 Sep, Type 2 diabetes mellitus with unspecified complications E11.8 and 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.4 [place] [address] [place] [address] 42180- 3028 Sep, Type 2 diabetes mellitus with unspecified complications E11.8 ; 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.4 ; Current chronic use of systemic steroids Z79.52 and Moderate episode of recurrent major depressive disorder F33.1 [place] [address] [place] [place] [address] 65306- 3496 Sep, [place] [address] [id number] [place] [address] 02843- 3291 Sep, [place] [id number] [place] [address] 78862- 8310 Aug, [place] [id number] [place] [address] 95747- 0032 Aug, [place] [address] [address] [place] [address] 32947- 3490 Aug, Type 2 diabetes mellitus with unspecified complications E11.8 ; retirement 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.4 ; Current chronic use of systemic steroids Z79.52 ; Tobacco abuse Z72.0 ; Rheumatoid arthritis, involving unspecified site, unspecified rheumatoid factor presence M06.9 ; Thrombocytopenia D69.6 and Coronary artery disease involving [place] coronary artery of [place] heart without angina pectoris I25.10 [place] [id number] [place] [address] 09156- 9658 July, [facility] [address] [place] [address] 52977- 0829 Jun, [place] [address] [place] [id number] [place] [address] 28867- 8998 Jun, [facility] [address] [facility] [id number], [place] [address]- 8621 24 Jul, 2011 [facility] [address] [facility] [id number], [place] [address]- 1554 14 Feb, 2010 [facility] [address] [facility] [id number], [place] [address]- 3352 Feb, [facility] [address] [facility] [id number], [place] [address]- 9286 Jan, [facility] [address] [facility] [id number], [place] [address]- 1234 Jan, [facility] [address] [facility] [id number], [place] [address]- 3339 Jan, [facility] [address], [place] [address]- 0691 Jan, [facility] [address], [place] [address]- 4782 Jan, [facility] [id number] [address]- 0818 Aug, [facility] [id number], [place] [address]- 6135 July, IMMUNIZATIONS No Known Immunizations SOCIAL HISTORY Never Assessed REASON FOR VISIT Refill request PLAN OF CARE VITAL SIGNS MEDICATIONS Medication Instructions Dosage Frequency Start Date End Date Duration Status Gabapentin 300 MG Orally Twice a day 1 capsule 12h 30 days Active RESULTS No Results PROCEDURES No Known procedures INSTRUCTIONS MEDICATIONS ADMINISTERED No Known Medications MEDICAL (GENERAL) HISTORY Type Description Date Medical History Diabetes Type II Medical History Hypertension Medical History CAD Medical History retirement use of steroids Surgical History Appendectomy 2010 [...]
--- OUTSIDE RECORDS SUMMARY | 2018-03-18 13:01 | XMS REPORT ---
Author Author DIXIE ZELAYA [facility] Address [address] 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.4 Active 885946146 Problem Coronary artery disease involving agdaag[place] coronary artery of agdaagux heart without angina pectoris I25.10 Active 5587637642162 Problem Chronic idiopathic pain syndrome G89.29 Active 265148867 Problem Post traumatic stress disorder F43.10 Active 88014310 Problem Rheumatoid arthritis, involving unspecified site, unspecified rheumatoid factor presence M06.9 Active 76229680 Problem Type 2 diabetes mellitus with unspecified complications E11.8 Active 02206824 Problem Moderate episode of recurrent major depressive disorder F33.1 Active 564818628 Problem Current chronic use of systemic steroids Z79.52 Active [id number] ALLERGIES No Information ENCOUNTERS Encounter Location Date Diagnosis [facility] [id number] [place] [address] 89612- 9114 Feb, [facility] [id number] [place] [address] 43002- 3831 Nov, [facility] [id number] [place] [address] 90918- 1293 Oct, [facility] [address] 42765- 4687 Oct, [facility] [id number] [place] [address] 33323- 8132 Oct, [facility] [id number] [place] [address] 26091- 3254 Oct, [place] [address], [place] [address] 73[address] Oct, Type 2 diabetes mellitus with unspecified complications E11.8 ; Current chronic use of systemic steroids Z79.52 ; Chronic idiopathic pain syndrome G89.29 and Fall W19.XXXA [place] [address] [place] [address] 44649- 0434 Oct, [facility] [address] [place] [address] Oct, [place] [address] [place] [address] 25334- 4167 Sep, Post traumatic stress disorder F43.10 [place] [id number] [place] [address] 94687- 6058 Sep, Type 2 diabetes mellitus with unspecified complications E11.8 and half-way 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.4 [place] [id number] [place] [address] 99794- 3945 Sep, Type 2 diabetes mellitus with unspecified complications E11.8 ; 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.4 ; Current chronic use of systemic steroids Z79.52 and Moderate episode of recurrent major depressive disorder F33.1 [place] [address] [place] [address] 39496- 6500 Sep, [place] [address] [place] [address] 97701- 7745 Sep, [place] [address] [place] [address] 70348- 6788 Aug, [place] [id number] [place] [address] 32662- 6170 Aug, [place] [address] [place] [address] 46249- 9094 Aug, Type 2 diabetes mellitus with unspecified complications E11.8 ; 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.4 ; Current chronic use of systemic steroids Z79.52 ; Tobacco abuse Z72.0 ; Rheumatoid arthritis, involving unspecified site, unspecified rheumatoid factor presence M06.9 ; Thrombocytopenia D69.6 and Coronary artery disease involving agdaagux coronary artery of agdaagux heart without angina pectoris I25.10 [facility] [address], [place] [address] 99[address] July, [facility] [id number] [place] [address] 33877- 2508 14 Jun, 2014 [facility] [id number] [place] [address] 30473- 2937 Jun, [facility] [id number] [place] [address] 40575- 0716 July, [facility] [id number] [place] [address] 85860- 0050 Feb, [facility] [id number] [place] [address] 46393- 1829 Feb, [facility] [id number] [place] [address] 68932- 9837 Jan, [facility] [id number] [place] [address] 48043- 3637 Jan, [facility] [id number] [place] [address] 37123- 8227 Jan, [facility] [address] [place] [address] 43879- 9525 Jan, [facility] [address], [place] [address] 9779 Jan, [facility] [id number] [place] [address] 16380- 3190 Aug, [facility] [id number] [place] [address] 43751- 8133 July, IMMUNIZATIONS No Known Immunizations SOCIAL HISTORY Never Assessed REASON FOR VISIT Refill request PLAN OF CARE VITAL SIGNS MEDICATIONS Medication Instructions Dosage Frequency Start Date End Date Duration Status Ondansetron 4 MG Orally every 6 hrs 1 tablet 6h 30 days Active RESULTS No Results PROCEDURES No Known procedures INSTRUCTIONS MEDICATIONS ADMINISTERED No Known Medications MEDICAL (GENERAL) HISTORY Type Description Date Medical History Diabetes Type II Medical History Hypertension Medical History CAD Medical History half-way use of steroids Surgical History Appendectomy 2010 [...]
--- OUTSIDE RECORDS SUMMARY | 2018-03-18 13:01 | XMS REPORT ---
Author Author DIXIE ZELAYA [facility] Address [address] 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.4 Active 932630308 Problem Coronary artery disease involving [place] coronary artery of [place] heart without angina pectoris I25.10 Active 9004727214289 Problem Chronic idiopathic pain syndrome G89.29 Active 177743702 Problem Post traumatic stress disorder F43.10 Active 36022302 Problem Rheumatoid arthritis, involving unspecified site, unspecified rheumatoid factor presence M06.9 Active 28623459 Problem Type 2 diabetes mellitus with unspecified complications E11.8 Active 30296805 Problem Moderate episode of recurrent major depressive disorder F33.1 Active 137987349 Problem Current chronic use of systemic steroids Z79.52 Active [id number] ALLERGIES No Information ENCOUNTERS Encounter Location Date Diagnosis [facility] [id number] [place] [address] 50507- 8595 Feb, [facility] [id number] [place] [address] 17322- 9831 Nov, [facility] [id number] [place] [address] 24211- 7694 Oct, [facility] [address] 41208- 0026 Oct, [facility] [id number] [place] [address] 57550- 0250 Oct, [facility] [id number] [place] [address] 67735- 2900 Oct, [place] [address] [address] 1391 Oct, Type 2 diabetes mellitus with unspecified complications E11.8 ; Current chronic use of systemic steroids Z79.52 ; Chronic idiopathic pain syndrome G89.29 and Fall W19.XXXA [place] [address] [place] [address] 55448- 7780 Oct, [facility] [address] [place] [address] Oct, [place] [address] [place] [address] 39588- 3584 Sep, Post traumatic stress disorder F43.10 [place] [id number] [place] [address] 84106- 0729 Sep, Type 2 diabetes mellitus with unspecified complications E11.8 and care home 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.4 [place] [id number] [place] [address] 61955- 8102 Sep, Type 2 diabetes mellitus with unspecified complications E11.8 ; 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.4 ; Current chronic use of systemic steroids Z79.52 and Moderate episode of recurrent major depressive disorder F33.1 [place] [id number] [place] [address] 98486- 5107 Sep, [place] [id number] [place] [address] 78870- 7525 Sep, [place] [id number] [place] [address] 31584- 2120 Aug, [place] [id number] [place] [address] 84281- 5135 Aug, [place] [id number] [place] [address] 88672- 5395 Aug, Type 2 diabetes mellitus with unspecified complications E11.8 ; 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.4 ; Current chronic use of systemic steroids Z79.52 ; Tobacco abuse Z72.0 ; Rheumatoid arthritis, involving unspecified site, unspecified rheumatoid factor presence M06.9 ; Thrombocytopenia D69.6 and Coronary artery disease involving [place] coronary artery of [place] heart without angina pectoris I25.10 [facility] [address] [address]- 8312 July, [facility] [id number] [place] [address] 62870- 9471 14 Jun, 2014 [facility] [id number] [place] [address] 69037- 9135 Jun, [facility] [id number] [place] [address] 55476- 6485 July, [facility] [id number] [place] [address] 64124- 8888 Feb, [facility] [id number] [place] [address] 03460- 0797 Feb, [facility] [id number] [place] [address] 50512- 8850 Jan, [facility] [id number] [place] [address] 56806- 0884 Jan, [facility] [id number] [place] [address] 99978- 3717 Jan, [facility] [id number] [place] [address] 01468- 1869 Jan, [facility] [address] [address]- 1367 Jan, [facility] [id number] [place] [address] 30625- 4177 Aug, [facility] [id number] [place] [address] 80647- 4290 July, IMMUNIZATIONS No Known Immunizations SOCIAL HISTORY Never Assessed REASON FOR VISIT Medication Refill Request PLAN OF CARE VITAL SIGNS MEDICATIONS Medication Instructions Dosage Frequency Start Date End Date Duration Status PredniSONE 5 mg Orally Once a day 1.5 tablet 24h Oct, 30 day(s ) Active RESULTS No Results PROCEDURES No Known [...]
--- OUTSIDE RECORDS SUMMARY | 2018-03-18 13:01 | XMS REPORT ---
Author Author DIXIE ZELAYA Organization [facility] Address [address] 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.4 Active 218673362 Problem Coronary artery disease involving [place] coronary artery of [place] heart without angina pectoris I25.10 Active 0035919837901 Problem Chronic idiopathic pain syndrome G89.29 Active 858192468 Problem Post traumatic stress disorder F43.10 Active 53136113 Problem Rheumatoid arthritis, involving unspecified site, unspecified rheumatoid factor presence M06.9 Active 69272613 Problem Type 2 diabetes mellitus with unspecified complications E11.8 Active 55385912 Problem Moderate episode of recurrent major depressive disorder F33.1 Active 248150814 Problem Current chronic use of systemic steroids Z79.52 Active [id number] ALLERGIES No Information ENCOUNTERS Encounter Location Date Diagnosis [facility] [id number] [place] [address] 58702- 7309 Feb, [facility] [id number] [place] [address] 62896- 7805 Jan, [facility] [id number] [place] [address] 95795- 4398 Dec, [facility] [address] 40697- 3279 Dec, [facility] [id number] [place] [address] 56892- 8150 Nov, [facility] [id number] [place] [address] 63567- 5098 Oct, [facility] [address] [address]- 5653 Oct, [facility] [id number] [place] [address] 35412- 9705 Oct, [facility] [address] [place] [address] 78165- 3461 Oct, [facility] [id number] [place] [address] 21915- 1116 Oct, Type 2 diabetes mellitus with unspecified complications E11.8 ; Current chronic use of systemic steroids Z79.52 ; Chronic idiopathic pain syndrome G89.29 and Fall W19.XXXA [place] [id number] [place] [address] 34991- 5607 Oct, [facility] [address] [place] [address] Oct, [place] [id number] [place] [address] 80937- 2323 Sep, Post traumatic stress disorder F43.10 [place] [id number] [place] [address] 86179- 5731 Sep, Type 2 diabetes mellitus with unspecified complications E11.8 and superintendent terminal 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.4 [place] [address] [place] [address] 83691- 0179 Sep, Type 2 diabetes mellitus with unspecified complications E11.8 ; detention 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.4 ; Current chronic use of systemic steroids Z79.52 and Moderate episode of recurrent major depressive disorder F33.1 [place] [address] [place] [address] 79274- 4544 Sep, [facility] [address] [place] [address] 45950- 3006 Sep, [facility] [address] [place] [address] 08206- 0682 Aug, [place] [address] [address]- 1767 18 Aug, 2017 [facility] [id number] [place] [address] 61422- 4368 Aug, Type 2 diabetes mellitus with unspecified complications E11.8 ; superintendent terminal 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.4 ; Current chronic use of systemic steroids Z79.52 ; Tobacco abuse Z72.0 ; Rheumatoid arthritis, involving unspecified site, unspecified rheumatoid factor presence M06.9 ; Thrombocytopenia D69.6 and Coronary artery disease involving [place] coronary artery of [place]ock heart without angina pectoris I25.10 [facility] [id number] [place] [address] 22405- 8471 July, [facility] [id number] [place] [address] 68250- 5239 14 Jun, 2014 [facility] [id number] [place] [address] 31621- 0202 Jun, [facility] [id number] [address]- 2479 July, [facility] [id number] [place] [address] 42084- 1019 Feb, [facility] [id number] [address]- 2202 Feb, [facility] [address] [address]- 4954 Jan, [facility] [address] [address]- 4394 Jan, [facility] [address] [place] [address] 01670- 2130 Jan, [facility] [id number] [address]- 9897 Jan, [facility] [address], [place] [address]- 5474 Jan, [facility] [address] [facility] [id number] [place] [address]- 1654 Aug, [facility] [address] [facility] [id number] [place] [address]- 7565 July, IMMUNIZATIONS No Known Immunizations SOCIAL HISTORY Never Assessed REASON FOR VISIT Requests return call PLAN OF CARE VITAL SIGNS MEDICATIONS Unknown [...]
--- OUTSIDE RECORDS SUMMARY | 2018-03-18 13:01 | XMS REPORT ---
Author Author DIXIE ZELAYA [facility] Address [address] 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 Active 512032209 Problem Coronary artery disease involving saxman coronary artery of saxman heart without angina pectoris I25.10 Active 3630209357618 Problem Chronic idiopathic pain syndrome G89.29 Active 936398625 Problem Post traumatic stress disorder F43.10 Active 31732697 Problem Rheumatoid arthritis, involving unspecified site, unspecified rheumatoid factor presence M06.9 Active 43435713 Problem Type 2 diabetes mellitus with unspecified complications E11.8 Active 92489533 Problem Moderate episode of recurrent major depressive disorder F33.1 Active 578330856 Problem Current chronic use of systemic steroids Z79.52 Active [id number] ALLERGIES No Information ENCOUNTERS Encounter Location Date Diagnosis [facility] [id number] [place] [address] 06710- 1958 Feb, [facility] [id number] [place] [address] 14923- 5805 Nov, [facility] [id number] [place] [address] 25975- 4823 Oct, [facility] [address] 17438- 3883 Oct, [facility] [id number] [place] [address] 38987- 6329 Oct, [facility] [id number] [place] [address] 75763- 6660 Oct, [place] [address], [place] [address]- 2811 Oct, Type 2 diabetes mellitus with unspecified complications E11.8 ; Current chronic use of systemic steroids Z79.52 ; Chronic idiopathic pain syndrome G89.29 and Fall W19.XXXA [place] [address] [place] [address] 07121- 0226 Oct, [facility] [address] [place] [address] Oct, [place] [address] [place] [address] 79713- 0422 Sep, Post traumatic stress disorder F43.10 [place] [id number] [place] [address] 29981- 3986 Sep, Type 2 diabetes mellitus with unspecified complications E11.8 and alf 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.4 [place] [id number] [place] [address] 76389- 9897 Sep, Type 2 diabetes mellitus with unspecified complications E11.8 ; 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 ; Current chronic use of systemic steroids Z79.52 and Moderate episode of recurrent major depressive disorder F33.1 [place] [address] [place] [address] 35702- 9418 Sep, [place] [address] [place] [address] 76824- 4912 Sep, [place] [address] [place] [address] 26570- 0498 Aug, [place] [id number] [place] [address] 27398- 6344 Aug, [place] [address] [place] [address] 96461- 9627 Aug, Type 2 diabetes mellitus with unspecified complications E11.8 ; 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 [address] [place] [address] 30985- 3632 July, [facility] [id number] [place] [address] 77435- 0820 [address], [address] [facility] [id number] [place] [address] 65907- 7316 Jun, [facility] [id number] [place] [address] 92347- 8564 July, [facility] [id number] [place] [address] 18564- 5331 Feb, [facility] [id number] [place] [address] 24207- 4423 Feb, [facility] [id number] [place] [address] 57822- 4051 Jan, [facility] [id number] [place] [address] 40820- 2259 Jan, [facility] [id number] [place] [address] 24458- 4073 Jan, [facility] [id number] [place] [address] 51185- 0503 Jan, [facility] [address] [place] [address] 48938- 3377 Jan, [facility] [id number] [place] [address] 08614- 8581 Aug, 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
--- OUTSIDE RECORDS SUMMARY | 2018-03-18 13:01 | XMS REPORT ---
Author Author DIXIE ZELAYA [facility] Address [address] 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 Active 269771818 Problem Coronary artery disease involving teller coronary artery of teller heart without angina pectoris I25.10 Active 2610274505787 Problem Chronic idiopathic pain syndrome G89.29 Active 714835162 Problem Post traumatic stress disorder F43.10 Active 20167058 Problem Rheumatoid arthritis, involving unspecified site, unspecified rheumatoid factor presence M06.9 Active 46534088 Problem Type 2 diabetes mellitus with unspecified complications E11.8 Active 64788651 Problem Moderate episode of recurrent major depressive disorder F33.1 Active 343255864 Problem Current chronic use of systemic steroids Z79.52 Active [id number] ALLERGIES No Information ENCOUNTERS Encounter Location Date Diagnosis [facility] [id number] [place] [address] 34872- 7917 Feb, [facility] [id number] [place] [address] 15148- 7254 Nov, [facility] [id number] [place] [address] 44349- 2418 Oct, [facility] [address] [address]856- 3938 Oct, [facility] [id number] [place] [address]12- 0972 Oct, [facility] [id number] [place] [address] 51588- 3367 Oct, [place] [address] [address] Oct, Type 2 diabetes mellitus with unspecified complications E11.8 ; Current chronic use of systemic steroids Z79.52 ; Chronic idiopathic pain syndrome G89.29 and Fall W19.XXXA [place] [id number] [place] [address] 95271- 9932 Oct, [facility] [address] [place] [address] Oct, [place] [id number] [place] [address] 06308- 1744 Sep, Post traumatic stress disorder F43.10 [place] [id number] [place] [address] 28824- 1243 Sep, Type 2 diabetes mellitus with unspecified complications E11.8 and [facility] 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.4 [place] [id number] [place] [address] 65266- 4979 Sep, Type 2 diabetes mellitus with unspecified complications E11.8 ; 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 ; Current chronic use of systemic steroids Z79.52 and Moderate episode of recurrent major depressive disorder F33.1 [place] [id number] [place] [address] 70253- 2972 Sep, [place] [id number] [place] [address] 75966- 6114 Sep, [place] [id number] [place] [address] 08655- 9766 Aug, [place] [id number] [place] [address] 58115- 1857 Aug, [place] [id number] [place] [address] 31910- 5076 Aug, Type 2 diabetes mellitus with unspecified complications E11.8 ; 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 [id number] [place] [address] 40134- 0212 July, [facility] [id number] [place] [address] 04175- 5892 [address], [address] [facility] [id number] [place] [address] 82017- 7995 Jun, [facility] [id number] [place] [address] 40986- 2028 July, [facility] [id number] [place] [address] 10422- 9484 Feb, [facility] [id number] [place] [address] 48770- 4046 Feb, [facility] [id number] [place] [address] 76604- 0061 Jan, [facility] [id number] [place] [address] 34370- 9857 Jan, [facility] [id number] [place] [address] 89695- 2177 Jan, [facility] [id number] [place] [address] 41545- 9516 Jan, [facility] [id number] [place] [address] 14227- 2786 Jan, [facility] [id number] [place] [address] 64024- 4031 Aug, [facility] [id number] [place] [address] 08729- 0958 July, IMMUNIZATIONS No Known Immunizations SOCIAL HISTORY Never Assessed REASON FOR VISIT Requests return call PLAN OF CARE VITAL SIGNS MEDICATIONS Unknown Medications RESULTS No Results PROCEDURES No Known procedures INSTRUCTIONS MEDICATIONS ADMINISTERED No Known Medications MEDICAL (GENERAL) HISTORY Type Description Date Medical History Diabetes Type II Medical History Hypertension Medical History CAD Medical History [facility] use of steroids Surgical History Appendectomy 2010 [...]
--- OUTSIDE RECORDS SUMMARY | 2018-03-18 13:01 | XMS REPORT ---
Author Author DIXIE ZELAYA Organization [facility] Address [address] 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.4 Active 916154212 Problem Coronary artery disease involving ely shoshone coronary artery of ely shoshone heart without angina pectoris I25.10 Active 2008697837670 Problem Chronic idiopathic pain syndrome G89.29 Active 565601131 Problem Post traumatic stress disorder F43.10 Active 41790856 Problem Rheumatoid arthritis, involving unspecified site, unspecified rheumatoid factor presence M06.9 Active 49176646 Problem Type 2 diabetes mellitus with unspecified complications E11.8 Active 63696810 Problem Moderate episode of recurrent major depressive disorder F33.1 Active 035826967 Problem Current chronic use of systemic steroids Z79.52 Active [id number] ALLERGIES No Information ENCOUNTERS Encounter Location Date Diagnosis [facility] [id number] [place] [address] 57618- 7403 Feb, [facility] [id number] [place] [address] 79520- 5455 Jan, [facility] [id number] [place] [address] 62186- 2966 Dec, [facility] [address] 60005- 6641 Dec, [facility] [id number] [place] [address] 42476- 1549 Nov, [facility] [id number] [place] [address] 51797- 4914 Oct, [facility] [address] [address] 2034 Oct, [facility] [id number] [place] [address] 66757- 0601 Oct, [facility] [id number] [place] [address] 05786- 1317 Oct, [facility] [id number] [place] [address] 29680- 4350 Oct, Type 2 diabetes mellitus with unspecified complications E11.8 ; Current chronic use of systemic steroids Z79.52 ; Chronic idiopathic pain syndrome G89.29 and Fall W19.XXXA [place] [id number] [place] [address] 89630- 4014 Oct, [facility] [address] [place] [address] Oct, [place] [id number] [place] [address] 34245- 4465 Sep, Post traumatic stress disorder F43.10 [place] [id number] [place] [address] 18796- 5370 Sep, Type 2 diabetes mellitus with unspecified complications E11.8 and 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.4 [place] [id number] [place] [address] 56921- 5537 Sep, Type 2 diabetes mellitus with unspecified complications E11.8 ; snf 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.4 ; Current chronic use of systemic steroids Z79.52 and Moderate episode of recurrent major depressive disorder F33.1 [place] [id number] [place] [address] 12674- 1298 Sep, [facility] [id number] [place] [address] 65289- 1396 Sep, [facility] [id number] [place] [address] 79354- 9621 Aug, [place] [address] [address]- 3378 18 Aug, 2017 [facility] [id number] [place] [address] 21504- 6274 Aug, Type 2 diabetes mellitus with unspecified complications E11.8 ; 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.4 ; Current chronic use of systemic steroids Z79.52 ; Tobacco abuse Z72.0 ; Rheumatoid arthritis, involving unspecified site, unspecified rheumatoid factor presence M06.9 ; Thrombocytopenia D69.6 and Coronary artery disease involving ely shoshone coronary artery of ely shoshone heart without angina pectoris I25.10 [facility] [id number] [place] [address] 39221- 9485 July, [facility] [id number] [place] [address] 48977- 5543 14 Jun, 2014 [facility] [id number] [place] [address] 55169- 3082 Jun, [facility] [id number] [address] 8934 July, [facility] [id number] [place] [address] 10418- 7542 Feb, [facility] [id number] [address]- 9799 Feb, [facility] [address] [address]- 1362 Jan, [facility] [address] [address]- 8799 Jan, [facility] [id number] [place] [address] 34523- 2270 Jan, [facility] [id number] [address]- 0645 Jan, [facility] [address] [address]- 0003 Jan, [facility] [address] [facility] [id number] [place] [address]- 9787 Aug, [facility] [address] [facility] [id number] [place] [address]- 1201 July, IMMUNIZATIONS No Known Immunizations SOCIAL HISTORY Never Assessed REASON FOR VISIT Home health PLAN OF CARE VITAL SIGNS MEDICATIONS Unknown Medications RESULTS No Results PROCEDURES No Known procedures INSTRUCTIONS MEDICATIONS ADMINISTERED No Known Medications MEDICAL (GENERAL) HISTORY Type Description Date Medical History Diabetes Type II Medical History Hypertension Medical History CAD 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
--- OUTSIDE RECORDS SUMMARY | 2018-03-18 13:01 | XMS REPORT ---
Author Author DIXIE ZELAYA [facility] Address [address] 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.4 Active 108928489 Problem Coronary artery disease involving chicken ranch coronary artery of chicken ranch heart without angina pectoris I25.10 Active 1196514527280 Problem Chronic idiopathic pain syndrome G89.29 Active 621196285 Problem Post traumatic stress disorder F43.10 Active 58072384 Problem Rheumatoid arthritis, involving unspecified site, unspecified rheumatoid factor presence M06.9 Active 09181116 Problem Type 2 diabetes mellitus with unspecified complications E11.8 Active 27957756 Problem Moderate episode of recurrent major depressive disorder F33.1 Active 544102189 Problem Current chronic use of systemic steroids Z79.52 Active [id number] ALLERGIES No Information ENCOUNTERS Encounter Location Date Diagnosis [facility] [place] [id number] [place] [address] 46086- 8519 Feb, [facility] [place] [id number] [place] [address] 06694- 9616 Nov, [facility] [place] [id number] [place] [address] 91137- 1777 Oct, [facility] [place] [address] 56146- 5225 Oct, [facility] [place] [id number] [place] [address] 36371- 1758 Oct, [facility] [place] [id number] [place] [address] 80401- 5296 Oct, [place] [address], [place] [address]- 6280 Oct, Type 2 diabetes mellitus with unspecified complications E11.8 ; Current chronic use of systemic steroids Z79.52 ; Chronic idiopathic pain syndrome G89.29 and Fall W19.XXXA [place] [address] [place] [address] 60052- 0813 Oct, [facility] [address] [place] [address] Oct, [place] [address] [place] [address] 42089- 2661 Sep, Post traumatic stress disorder F43.10 [place] [id number] [place] [address] 44694- 4148 Sep, Type 2 diabetes mellitus with unspecified complications E11.8 and shelter 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.4 [place] [id number] [place] [address] 08621- 5763 Sep, Type 2 diabetes mellitus with unspecified complications E11.8 ; 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.4 ; Current chronic use of systemic steroids Z79.52 and Moderate episode of recurrent major depressive disorder F33.1 [place] [address] [place] [address] 48814- 5331 Sep, [place] [address] [place] [address] 46104- 0626 Sep, [place] [address] [place] [address] 64300- 9531 Aug, [place] [id number] [place] [address] 08764- 4135 Aug, [place] [address] [place] [address] 35247- 4191 Aug, Type 2 diabetes mellitus with unspecified complications E11.8 ; 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.4 ; Current chronic use of systemic steroids Z79.52 ; Tobacco abuse Z72.0 ; Rheumatoid arthritis, involving unspecified site, unspecified rheumatoid factor presence M06.9 ; Thrombocytopenia D69.6 and Coronary artery disease involving chicken ranch coronary artery of chicken ranch heart without angina pectoris I25.10 [facility] [place] [address], [place] [address]- 9099 July, [facility] [place] [id number] [place] [address] 02308- 9428 14 Jun, 2014 [facility] [place] [id number] [place] [address] 76099- 8652 Jun, [facility] [place] [id number] [place] [address] 70256- 3082 July, [facility] [place] [id number] [place] [address] 01998- 9436 Feb, [facility] [place] [id number] [place] [address] 76748- 4441 Feb, [facility] [place] [id number] [place] [address] 97019- 1540 Jan, [facility] [place] [id number] [place] [address] 72113- 2885 Jan, [facility] [place] [id number] [place] [address] 25205- 0373 Jan, [facility] [place] [address] [place] [address] 50400- 4692 Jan, [facility] [place] [address], [place] [address]- 5787 Jan, [facility] [place] [id number] [place] [address] 71529- 4903 Aug, [facility] [place] [id number] [place] [address] 47102- 2195 July, IMMUNIZATIONS No Known Immunizations SOCIAL HISTORY Never Assessed REASON FOR VISIT Lab results PLAN OF CARE VITAL SIGNS MEDICATIONS Medication Instructions Dosage Frequency Start Date End Date Duration Status Fosamax 70 MG Orally as directed 1 tablet once a week Oct, Nov, 30 day(s) Active RESULTS No Results PROCEDURES No Known procedures INSTRUCTIONS MEDICATIONS ADMINISTERED No Known Medications MEDICAL (GENERAL) HISTORY Type Description Date Medical History Diabetes Type II Medical History Hypertension Medical History CAD Medical History shelter use of steroids Surgical History Appendectomy 2010 Surgical History Cholecystectomy 2010 Surgical History Hysterectomy 2011 Surgical History 3 Stents placed after heart attack 2012 Surgical History Kidney stone removal 2016 Surgical History Cataracts 2013 Surgical History Left breast biopsy 2010 Surgical History Colon Resection 2015 Hospitalization History Sepsis x3 Hospitalization History MRSA 2015 Hospitalization History Pneumonia x3 Hospitalization History Kidney Failure
[2018-03-18] MEDS ORDERED: LACTATED RINGERS 1,000 ML IV ONE (13:02)
--- OUTSIDE RECORDS SUMMARY | 2018-03-18 13:02 | XMS REPORT ---
Author Author DIXIE ZELAYA Organization [facility] Address [address] 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.4 Active 634810382 Problem Coronary artery disease involving [place] coronary artery of [place] heart without angina pectoris I25.10 Active 7462296277218 Problem Chronic idiopathic pain syndrome G89.29 Active 655074563 Problem Post traumatic stress disorder F43.10 Active 15885056 Problem Rheumatoid arthritis, involving unspecified site, unspecified rheumatoid factor presence M06.9 Active 95252288 Problem Type 2 diabetes mellitus with unspecified complications E11.8 Active 41755712 Problem Moderate episode of recurrent major depressive disorder F33.1 Active 231669539 Problem Current chronic use of systemic steroids Z79.52 Active [id number] ALLERGIES Substance Reaction Event Type Date Status Bactrim nausea and vomiting Drug Allergy Oct, Active ENCOUNTERS Encounter Location Date Diagnosis [facility] [id number] [address] Feb, [facility] [address], [place] [address] Nov, [facility] [id number], [place] [address] Oct, [facility] [address] [place] [address] 23881- 6565 Oct, [facility] [id number], [place] [address] 97[address] Oct, [facility] [id number], [place] [address] 70[address] Oct, [facility] [id number] [place] [address] 51312- 5167 Oct, Type 2 diabetes mellitus with unspecified complications E11.8 ; Current chronic use of systemic steroids Z79.52 ; Chronic idiopathic pain syndrome G89.29 and Fall W19.XXXA [facility] [id number] [place] [address] 70947- 4205 Oct, [facility] [address] [place] [address] Oct, [facility] [id number] [place] [address] 75227- 0462 Sep, Post traumatic stress disorder F43.10 [id number] [place] [address] 12739- 8924 Sep, Type 2 diabetes mellitus with unspecified complications E11.8 and nursing home 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.4 [place] [id number] [place] [address] 37389- 6776 Sep, Type 2 diabetes mellitus with unspecified complications E11.8 ; oysterman 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.4 ; Current chronic use of systemic steroids Z79.52 and Moderate episode of recurrent major depressive disorder F33.1 [place] [address] [address] [place] [address] 30492- 5375 Sep, [place] [address] [place] [address] 32156- 7439 Sep, [facility] [address] [place] [address] 10654- 9630 Aug, [facility] [id number] [place] [address] 74198- 0745 Aug, [facility] [address] [address] Aug, Type 2 diabetes mellitus with unspecified complications E11.8 ; nursing home 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.4 ; Current chronic use of systemic steroids Z79.52 ; Tobacco abuse Z72.0 ; Rheumatoid arthritis, involving unspecified site, unspecified rheumatoid factor presence M06.9 ; Thrombocytopenia D69.6 and Coronary artery disease involving [place] coronary artery of [place] heart without angina pectoris I25.10 [facility] [address], [place] [address] July, [facility] [id number] [place] [address] 33137- 5582 14 Jun, 2014 [facility] [id number] [place] [address] 74030- 9971 Jun, [facility] [id number] [place] [address] 32262- 5725 July, [facility] [id number] [place] [address] 88027- 9868 Feb, [facility] [id number] [place] [address] 35751- 6079 Feb, [facility] [id number] [place] [address] 07233- 5453 Jan, [facility] [id number] [place] [address] 96821- 5675 18 Jan, 2010 [facility] [address], [place] [address] 17 Jan, 2009 [facility] [address] [place] [address] 17108- 8846 Jan, [facility] [address], [place] [address] 59[address] Jan, [facility] [id number] [place] [address] 25022- 2400 Aug, [facility] [address], [place] [address] July, IMMUNIZATIONS No Known Immunizations SOCIAL HISTORY Never Assessed REASON FOR VISIT Diabetes - BRIEN Foy PLAN OF CARE Activity Details Follow Up 6 Weeks Reason:DMT2 VITAL SIGNS Height 63.1 in 2017-11-10 Weight 168.7 lbs 2017-11-10 Temperature 97.8 degrees Fahrenheit 2017-11-10 Heart Rate 90 bpm 2017-11-10 Respiratory Rate 20 2017-11-10 BMI 29.79 kg/m2 2017-11-10 Blood pressure systolic 130 mmHg 2017-11-10 Blood pressure diastolic 90 mmHg 2017-11-10 MEDICATIONS Medication Instructions Dosage Frequency Start Date End Date Duration Status Lancets Active Atorvastatin Calcium 40 MG Orally Once a day 1 tablet 24h Active Gabapentin 300 MG Orally Twice a day 1 capsule 12h Active Fenofibrate Micronized 134 MG Orally Once a day 1 capsule with a meal 24h Active Ondansetron 4 MG Orally every 6 hrs 1 tablet 6h Active Voltaren 1 % Transdermal 4 times a day as needed to affected area 4 grams Oct, Jan, 30 days Active ReliOn Blood Glucose Test - as directed 6h Sep, Active Venlafaxine HCl ER 150 MG Orally Once a day 1 capsule with food 24h 30 days Active Promethazine-DM 6.25-15 MG/5ML Orally every 6 hrs 5 ml as needed 6h Active Topiramate 50 MG Orally Twice a day 1 tablet 12h Active Aspir-81 81 MG Orally Once a day 1 tablet 24h Active CycloSPORINE 0.05 % Ophthalmic Twice a day 1 drop into affected eye 12h Active Clonidine HCl 0.1 MG Orally Once a day as needed for anxiety 1 tablet Sep, 30 day(s) Active Trulicity 0.75 MG/0.5ML Subcutaneous once weekly 1 injection Oct, May, 30 days Active PredniSONE 5 mg Orally Once a day 1.5 tablet 24h Oct, 30 day(s ) Active Metoprolol Tartrate 25 MG Orally Twice a day 1 tablet with food 12h Active Albuterol Sulfate (2.5 MG/3ML) 0.083% Inhalation Three times a day 3 ml as needed 8h Active Insulin Glargine 100 UNIT/ML Subcutaneous at bedtime 35 units Active Test strips 8h Active Clonazepam 0.5 MG Orally Once a day 1 tablet at bedtime 24h Oct, 28 days Active Lansoprazole 30 MG Orally Once a day 1 capsule 24h Active PredniSONE 10 MG Orally Once a day 1 tablet 24h Active Ibuprofen 800 MG Orally Three times a day 1 tablet with food or milk as needed 8h Not-Taking NovoLog Flexpen 100 UNIT/ML Subcutaneous 3 times a day 12 units 8h Active Xarelto 15 MG Orally Once a day 1 tablet with food 24h Active RESULTS Name Result Date Reference Range DEXA Hip and Spine 2017-11-20 PROCEDURES Procedure Date Ordered Result Body Site [facility] VISIT ESTABLISHED PATIENT Nov 10, 2017 INSTRUCTIONS MEDICATIONS ADMINISTERED No Known Medications MEDICAL (GENERAL) HISTORY Type Description Date Medical History Diabetes Type II Medical History Hypertension Medical History CAD Medical 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
--- OUTSIDE RECORDS SUMMARY | 2018-03-18 13:02 | XMS REPORT ---
Author Author DIXIE ZELAYA [facility] Address [address] 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 Active 710743523 Problem Coronary artery disease involving [place] coronary artery of [place] heart without angina pectoris I25.10 Active 7843425506746 Problem Chronic idiopathic pain syndrome G89.29 Active 600301744 Problem Post traumatic stress disorder F43.10 Active 50870850 Problem Rheumatoid arthritis, involving unspecified site, unspecified rheumatoid factor presence M06.9 Active 86789948 Problem Type 2 diabetes mellitus with unspecified complications E11.8 Active 79674854 Problem Moderate episode of recurrent major depressive disorder F33.1 Active 184705885 Problem Current chronic use of systemic steroids Z79.52 Active [id number] ALLERGIES No Information ENCOUNTERS Encounter Location Date Diagnosis [facility] [id number] [place] [address] 20948- 0083 Feb, [facility] [id number] [place] [address] 57487- 5557 Nov, [facility] [id number] [place] [address] 42084- 2416 Oct, [facility] [address] [address] Oct, [facility] [id number] [place] [address] 15714- 3898 Oct, [facility] [id number] [place] [address] 83063- 8895 Oct, [address] [address], [place] [address]- [address] Oct, Type 2 diabetes mellitus with unspecified complications E11.8 ; Current chronic use of systemic steroids Z79.52 ; Chronic idiopathic pain syndrome G89.29 and Fall W19.XXXA [place] [address] [place] [address] 26523- 8920 Oct, [facility] [address] [place] [address] Oct, [place] [address] [place] [address] 52113- 5684 Sep, Post traumatic stress disorder F43.10 [place] [id number] [place] [address] 15767- 8507 Sep, Type 2 diabetes mellitus with unspecified complications E11.8 and [facility] 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.4 [place] [id number] [place] [address] 36995- 8659 Sep, Type 2 diabetes mellitus with unspecified complications E11.8 ; 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 ; Current chronic use of systemic steroids Z79.52 and Moderate episode of recurrent major depressive disorder F33.1 [place] [address] [place] [address] 67517- 4641 Sep, [place] [address] [place] [address] 44149- 4017 Sep, [place] [address] [place] [address] 33627- 5422 Aug, [place] [id number] [place] [address] 42325- 6005 Aug, [place] [address] [place] [address] 26468- 9840 Aug, Type 2 diabetes mellitus with unspecified complications E11.8 ; 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 ; Current chronic use of systemic steroids Z79.52 ; Tobacco abuse Z72.0 ; Rheumatoid arthritis, involving unspecified site, unspecified rheumatoid factor presence M06.9 ; Thrombocytopenia D69.6 and Coronary artery disease involving [place] coronary artery of [place] heart without angina pectoris I25.10 [facility] [address] [place] [address] 29414- 6697 July, [facility] [id number] [place] [address] 48063- 7930 14 Jun, 2014 [facility] [id number] [place] [address] 35092- 2701 Jun, [facility] [id number] [place] [address] 85026- 9093 July, [facility] [id number] [place] [address] 45978- 1601 Feb, [facility] [id number] [place] [address] 53245- 9497 Feb, [facility] [id number] [place] [address] 60770- 8190 Jan, [facility] [id number] [place] [address] 40427- 0447 Jan, [facility] [id number] [place] [address] 38123- 0691 Jan, [facility] [address] [place] [address] 23132- 8733 Jan, [facility] [address] [place] [address] 49449- 3324 Jan, [facility] [id number] [place] [address] 16574- 3876 Aug, [facility] [id number] [place] [address] 64384- 3581 July, IMMUNIZATIONS No Known Immunizations SOCIAL HISTORY Never Assessed REASON FOR VISIT PLAN OF CARE VITAL SIGNS MEDICATIONS Unknown Medications RESULTS No Results PROCEDURES No Known procedures INSTRUCTIONS MEDICATIONS ADMINISTERED No Known Medications MEDICAL (GENERAL) HISTORY Type Description Date Medical History Diabetes Type II Medical History Hypertension Medical History CAD Medical History [facility] use of steroids Surgical History Appendectomy 2010 [...]
--- OUTSIDE RECORDS SUMMARY | 2018-03-18 13:02 | XMS REPORT ---
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 Active 551654932 Problem Coronary artery disease involving [place] coronary artery of [place] heart without angina pectoris I25.10 Active 0791881488098 Problem Chronic idiopathic pain syndrome G89.29 Active 894235239 Problem Post traumatic stress disorder F43.10 Active 90673565 Problem Rheumatoid arthritis, involving unspecified site, unspecified rheumatoid factor presence M06.9 Active 77665628 Problem Type 2 diabetes mellitus with unspecified complications E11.8 Active 38239325 Problem Moderate episode of recurrent major depressive disorder F33.1 Active 540308238 Problem Current chronic use of systemic steroids Z79.52 Active 415966362422993 ALLERGIES Substance Reaction Event Type Date Status Bactrim nausea and vomiting Drug Allergy Sep, Active ENCOUNTERS Encounter Location Date Diagnosis [facility] [id number] [address]- 6263 Feb, [facility] [address] [address]- 8018 Nov, [facility] [address] [address]- 1525 Oct, [facility] [address] [place] [address] 75981- 4218 Oct, [facility] [address] [address]- 7697 Oct, [facility] [address] [place] [address] 56546- 7819 Oct, [address] [id number] [place] [address] 16351- 6491 Oct, Type 2 diabetes mellitus with unspecified complications E11.8 ; Current chronic use of systemic steroids Z79.52 ; Chronic idiopathic pain syndrome G89.29 and Fall W19.XXXA [place] [id number] [place] [address] 75670- 0534 Oct, [facility] [address] [place] [address] Oct, [address] [id number] [place] [address] 74757- 9318 Sep, Post traumatic stress disorder F43.10 [place] [id number] [place] [address] 72579- 7208 Sep, Type 2 diabetes mellitus with unspecified complications E11.8 and 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.4 [address] [address] [place] [address] 77072- 4980 Sep, Type 2 diabetes mellitus with unspecified complications E11.8 ; 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.4 ; Current chronic use of systemic steroids Z79.52 and Moderate episode of recurrent major depressive disorder F33.1 [place] [address] [address]- 8271 Sep, [address] [address] [address]- 0856 Sep, [place] [address] [address]- 6729 Aug, [address] [address] [place] [address] 21266- 7978 Aug, [place] [address] [address]- 2907 Aug, Type 2 diabetes mellitus with unspecified complications E11.8 ; 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.4 ; Current chronic use of systemic steroids Z79.52 ; Tobacco abuse Z72.0 ; Rheumatoid arthritis, involving unspecified site, unspecified rheumatoid factor presence M06.9 ; Thrombocytopenia D69.6 and Coronary artery disease involving [place] coronary artery of [place] heart without angina pectoris I25.10 [facility] [address] [address]- 49[address] July, [facility] [address] [address]- 4533 14 Jun, 2014 [facility] [address] [address]- 1807 Jun, [facility] [id number] [address]- 8415 24 Jul, 2011 [facility] [address] [address]- 0489 14 Feb, 2010 [facility] [id number] [place] [address] 92331- 3719 Feb, [facility] [address] [address]- 6414 Jan, [facility] [address] [address]- 2997 18 Jan, 2010 [facility] [address] [address]- 7420 17 Jan, 2009 [facility] [address] [address]- 1850 Jan, [facility] [address] [address]- 5278 Jan, [facility] [address] [address]- 4861 Aug, [facility] [id number] [address]- 8564 July, IMMUNIZATIONS No Known Immunizations SOCIAL HISTORY Never Assessed REASON FOR VISIT [facility] PLAN OF CARE Activity Details Follow Up 4 Weeks Reason: VITAL SIGNS Height 63.1 in 2017-10-22 Weight 173.2 lbs 2017-10-22 Heart Rate 100 bpm 2017-10-22 Respiratory Rate 20 2017-10-22 Oximetry 96 % 2017-10-22 BMI 30.58 kg/m2 2017-10-22 Blood pressure systolic 120 mmHg 2017-10-22 Blood pressure diastolic 70 mmHg 2017-10-22 MEDICATIONS Medication Instructions Dosage Frequency Start Date End Date Duration Status Test strips 8h Active Atorvastatin Calcium 20 MG 90 Not-Taking PredniSONE 10 MG 30 Not-Taking Metoprolol Tartrate 25 MG Orally Twice a day 1 tablet with food 12h Not-Taking Insulin Glargine 100 UNIT/ML Subcutaneous at bedtime 35 units Active Promethazine-DM 6.25-15 MG/5ML Orally every 6 hrs 5 ml as needed 6h Active Ondansetron HCl 4 MG 4 Not-Taking Metoprolol Tartrate 25 MG Orally Twice a day 1 tablet with food 12h Active Xarelto 15 MG Orally Once a day 1 tablet with food 24h Active Rivaroxaban 15 MG Orally Once a day 1 tablet with food 24h Not- Taking Lansoprazole 30 MG Orally Once a day 1 capsule 24h Active Topiramate 50 MG Orally Twice a day 1 tablet 12h Active NovoLog Flexpen 100 UNIT/ML Subcutaneous 3 times a day 12 units 8h Active Aspir-81 81 MG Orally Once a day 1 tablet 24h Active Lancets Active Lansoprazole 30 MG Orally Once a day 1 capsule 24h Not-Taking PredniSONE 10 MG Orally Once a day 1 tablet 24h Active Latanoprost 0.005 % 23 Not-Taking Basaglar KwikPen 100 UNIT/ML Subcutaneous Once a day 35 units 24h Not-Taking Ventolin HFA 108 (90 Base) MCG/ACT Inhalation every 6 hrs 2 puffs as needed 6h Not-Taking ReliOn Blood Glucose Test - as directed 6h Sep, Active Venlafaxine HCl ER 75 MG Orally Once a day 1 capsule with food 24h Not-Taking Cyclobenzaprine HCl 10 MG Orally Three times a day 1 tablet as needed 8h Not-Taking Ondansetron 4 MG Orally every 6 hrs 1 tablet 6h Active Ibuprofen 800 MG Orally Three times a day 1 tablet with food or milk as needed 8h Not-Taking Gabapentin 600 MG Orally Once a day 1 tablet 24h Not-Taking Orphenadrine Citrate ER 100 mg Orally Twice a day 1 tablet 12h Not -Taking Topiramate 50 MG Orally Twice a day 1 tablet 12h Not-Taking Venlafaxine HCl ER 150 MG Orally Once a day 1 capsule with food 24h 30 days Active Nitroglycerin 0.4 MG Not-Taking Insulin Aspart 100 UNIT/ML Not-Taking Gabapentin 300 MG Orally Twice a day 1 capsule 12h Active Restasis 0.05 % Ophthalmic Twice a day 1 drop into affected eye 12h Not-Taking Fenofibrate Micronized 134 MG Orally Once a day 1 capsule with a meal 24h Active Clonidine HCl 0.1 MG Orally Once a day as needed for anxiety 1 tablet Sep, 30 day(s) Active CycloSPORINE 0.05 % Ophthalmic Twice a day 1 drop into affected eye 12h Active Albuterol Sulfate (2.5 MG/3ML) 0.083% Inhalation Three times a day 3 ml as needed 8h Active Atorvastatin Calcium 40 MG Orally Once a day 1 tablet 24h Active RESULTS No Results PROCEDURES Procedure Date Ordered Result Body Site [facility] VISIT ESTABLISHED PATIENT October 22, 2017 INSTRUCTIONS MEDICATIONS ADMINISTERED No Known Medications MEDICAL (GENERAL) HISTORY Type Description Date Medical History Diabetes Type II Medical History Hypertension Medical History CAD Medical History group home use of steroids Surgical History Appendectomy [...]
--- OUTSIDE RECORDS SUMMARY | 2018-03-18 13:02 | XMS REPORT ---
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 Active 967538662 Problem Coronary artery disease involving [place] coronary artery of [place] heart without angina pectoris I25.10 Active 7095361225873 Problem Chronic idiopathic pain syndrome G89.29 Active 368782682 Problem Post traumatic stress disorder F43.10 Active 70580850 Problem Rheumatoid arthritis, involving unspecified site, unspecified rheumatoid factor presence M06.9 Active 34544604 Problem Type 2 diabetes mellitus with unspecified complications E11.8 Active 21174892 Problem Moderate episode of recurrent major depressive disorder F33.1 Active 902228712 Problem Current chronic use of systemic steroids Z79.52 Active [id number] ALLERGIES No Information ENCOUNTERS Encounter Location Date Diagnosis [facility] [address] [address] Feb, [facility] [id number] [place] [address] 14294- 8396 Nov, [facility] [id number] [place] [address] 69422- 9035 Oct, [facility] [id number] [place] [address] 06647- 0844 Oct, [facility] [id number] [place] [address] 75726- 0242 Oct, [facility] [id number] [place] [address] 75699- 8697 Oct, [facility] [address], [place] [address] 73[address] Oct, Type 2 diabetes mellitus with unspecified complications E11.8 ; Current chronic use of systemic steroids Z79.52 ; Chronic idiopathic pain syndrome G89.29 and Fall W[address] [place] [facility] [address] [place] [address] 02791- 5781 Oct, [facility] [address] [place] [address] Oct, [place] [address] [place] [address] 13220- 3368 Sep, Post traumatic stress disorder F43.10 [place] [id number] [place] [address] 00351- 6999 Sep, Type 2 diabetes mellitus with unspecified complications E11.8 and 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 [place] [address] [place] [address] 01772- 0571 Sep, Type 2 diabetes mellitus with unspecified complications E11.8 ; 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 ; Current chronic use of systemic steroids Z79.52 and Moderate episode of recurrent major depressive disorder F33.1 [place] [address], [place] [address] 0843 Sep, [facility] [facility] [address], [place] [address] 9472 Sep, [place] [facility] [address], [place] [address] 3288 Aug, [facility] [facility] [address] [place] [address] 96772- 9243 Aug, [facility] [facility] [address], [place] [address] 7592 Aug, Type 2 diabetes mellitus with unspecified complications E11.8 ; senior living 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.4 ; Current chronic use of systemic steroids Z79.52 ; Tobacco abuse Z72.0 ; Rheumatoid arthritis, involving unspecified site, unspecified rheumatoid factor presence M06.9 ; Thrombocytopenia D69.6 and Coronary artery disease involving [place] coronary artery of [place] heart without angina pectoris I25.10 [facility] [address], [place] [address] July, [facility] [id number], [place] [address] 4443 14 Jun, 2014 [facility] [id number] [address] 3326 Jun, [facility] [id number] [place] [address] 63057- 2570 July, [facility] [id number] [place] [address] 86860- 5238 Feb, [facility] [id number] [place] [address] 77521- 9960 Feb, [facility] [address], [place] [address] 6532 Jan, [facility] [id number] [place] [address] 61547- 3895 Jan, [facility] [address], [place] [address] 6930 Jan, [facility] [address], [place] [address] 2911 Jan, [facility] [address], [place] [address] 0597 Jan, [facility] [address] [place] [address] 34898- 7084 Aug, [facility] [id number], [place] [address] 9582 July, IMMUNIZATIONS No Known Immunizations SOCIAL HISTORY Never Assessed REASON FOR VISIT 11/05/17 PLAN OF CARE VITAL SIGNS MEDICATIONS Medication Instructions Dosage Frequency Start Date End Date Duration Status Clonazepam 0.5 MG Orally Once a day 1 tablet at bedtime 24h Oct, 28 days Active RESULTS No Results PROCEDURES No Known procedures INSTRUCTIONS MEDICATIONS ADMINISTERED No Known Medications MEDICAL (GENERAL) HISTORY Type Description Date Medical History Diabetes Type II Medical History Hypertension Medical History CAD Medical History senior living use of steroids Surgical History Appendectomy 2010 [...]
[2018-03-18] MEDS ORDERED: LACTATED RINGERS 1,000 ML IV STA (13:03)
--- OUTSIDE RECORDS SUMMARY | 2018-03-18 13:03 | XMS REPORT ---
Author Author DIXIE ZELAYA [facility] Address [address] 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 557620912 Problem Coronary artery disease involving [place] coronary artery of [place] heart without angina pectoris I25.10 Active 6082439842615 Problem Chronic idiopathic pain syndrome G89.29 Active 109960768 Problem Post traumatic stress disorder F43.10 Active 91225379 Problem Rheumatoid arthritis, involving unspecified site, unspecified rheumatoid factor presence M06.9 Active 28036560 Problem Type 2 diabetes mellitus with unspecified complications E11.8 Active 10892068 Problem Moderate episode of recurrent major depressive disorder F33.1 Active 278614885 Problem Current chronic use of systemic steroids Z79.52 Active [id number] ALLERGIES No Information ENCOUNTERS Encounter Location Date Diagnosis [facility] [address] [place] [address] 75046- 2525 Feb, [facility] [address] [place] [address] 49003- 0379 Oct, [facility] [id number] [place] [address] 65418- 4884 Oct, [facility] [address] 73395- 3156 Oct, [facility] [id number] [place] [address] 18297- 6078 Oct, [facility] [id number] [place] [address] 99987- 8911 Oct, Type 2 diabetes mellitus with unspecified complications E11.8 ; Current chronic use of systemic steroids Z79.52 ; Chronic idiopathic pain syndrome G89.29 and Fall W19.XXXA [facility] [address] [place] [address] 07303- 4559 Oct, [facility] [address] [place] [address] Oct, [facility] [id number] [place] [address] 37696- 0838 Sep, Post traumatic stress disorder F43.10 [place] [id number] [place] [address] 50907- 8388 Sep, Type 2 diabetes mellitus with unspecified complications E11.8 and care home 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.4 [place] [id number] [place] [address] 60014- 3311 Sep, Type 2 diabetes mellitus with unspecified complications E11.8 ; 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 ; Current chronic use of systemic steroids Z79.52 and Moderate episode of recurrent major depressive disorder F33.1 [place] [facility] [id number] [place] [address] 34148- 8581 Sep, [facility] [address] [place] [address] 37865- 4355 Sep, [facility] [facility] [address] [place] [address] 67482- 1325 Aug, [place] [facility] [address] [place] [address] 42303- 3746 Aug, [facility] [address] [place] [address] 52889- 2394 Aug, Type 2 diabetes mellitus with unspecified complications E11.8 ; care home 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.4 ; Current chronic use of systemic steroids Z79.52 ; Tobacco abuse Z72.0 ; Rheumatoid arthritis, involving unspecified site, unspecified rheumatoid factor presence M06.9 ; Thrombocytopenia D69.6 and Coronary artery disease involving [place] coronary artery of [place] heart without angina pectoris I25.10 [facility] [id number], [place] [address] 3111 July, [facility] [address], [place] [address]- 7553 Jun, [facility] [address], [place] [address]- 6483 Jun, [facility] [address], [place] [address]- 3950 July, [facility] [address], [place] [address]- 8067 Feb, [facility] [address], [place] [address]- 8154 Feb, [facility] [address], [place] [address]- 0880 Jan, [facility] [address], [place] [address]- 0326 Jan, [facility] [address], [place] [address]- 1021 Jan, [facility] [address], [place] [address]- 0663 Jan, [facility] [id number], [place] [address]- 0965 Jan, [facility] [id number], [place] [address]- 3599 Aug, [facility] [id number], [place] [address]- 5894 July, IMMUNIZATIONS No Known Immunizations SOCIAL HISTORY Never Assessed REASON FOR VISIT Request for [facility] PLAN OF CARE VITAL SIGNS MEDICATIONS Unknown Medications RESULTS No Results PROCEDURES No Known procedures INSTRUCTIONS MEDICATIONS ADMINISTERED No Known Medications MEDICAL (GENERAL) HISTORY Type Description Date Medical History Diabetes Type II Medical History Hypertension Medical History CAD Medical History care home use of steroids Surgical History Appendectomy 2011 Surgical History Cholecystectomy 2011 Surgical History Hysterectomy 2012 Surgical History 3 Stents placed after heart attack 2013 Surgical History Kidney stone removal 2016 Surgical History Cataracts 2014 Surgical History Left breast biopsy 2010 Surgical History Colon Resection 2015 Hospitalization History Sepsis x3 Hospitalization History MRSA 2015 Hospitalization History Pneumonia x3 Hospitalization History Kidney Failure
--- OUTSIDE RECORDS SUMMARY | 2018-03-18 13:03 | XMS REPORT ---
Author Author DIXIE ZELAYA [facility] Address [address] 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 Active 096070386 Problem Coronary artery disease involving [place] coronary artery of [place] heart without angina pectoris I25.10 Active 0677343796507 Problem Chronic idiopathic pain syndrome G89.29 Active 204760859 Problem Post traumatic stress disorder F43.10 Active 41955758 Problem Rheumatoid arthritis, involving unspecified site, unspecified rheumatoid factor presence M06.9 Active 38626725 Problem Type 2 diabetes mellitus with unspecified complications E11.8 Active 13765284 Problem Moderate episode of recurrent major depressive disorder F33.1 Active 014135448 Problem Current chronic use of systemic steroids Z79.52 Active 068813423722883 ALLERGIES No Information ENCOUNTERS Encounter Location Date Diagnosis [facility] [id number] [place] [address] 35732- 3152 Feb, [facility] [id number] [place] [address] 97128- 4913 Nov, [facility] [id number] [place] [address] 67369- 6670 Nov, [facility] [address] 67540- 2783 Oct, [facility] [id number] [place] [address] 97187- 5217 Oct, [facility] [id number] [place] [address] 99762- 6286 Oct, [facility] [address], [place] [address]- 8014 Oct, [facility] [address] [place] [address] 42090- 0675 Oct, Type 2 diabetes mellitus with unspecified complications E11.8 ; Current chronic use of systemic steroids Z79.52 ; Chronic idiopathic pain syndrome G89.29 and Fall W19.XXXA [facility] [address] [place] [address] 10212- 7840 Oct, [facility] [address] [place] [address] Oct, [facility] [id number] [place] [address] 82124- 1350 Sep, Post traumatic stress disorder F43.10 [place] [facility] [id number] [place] [address] 83609- 7044 Sep, Type 2 diabetes mellitus with unspecified complications E11.8 and custodial 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.4 [place] [address], [place] [address]- 0213 Sep, Type 2 diabetes mellitus with unspecified complications E11.8 ; 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 ; Current chronic use of systemic steroids Z79.52 and Moderate episode of recurrent major depressive disorder F33.1 [place] [address], [place] [address]- 6737 Sep, [facility] [address], [place] [address]- 0960 Sep, [place] [address] [place] [address] 24706- 4817 Aug, [place] [address] [place] [address] 14890- 9107 Aug, [place] [address], [place] [address]- 0790 Aug, Type 2 diabetes mellitus with unspecified complications E11.8 ; 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 ; Current chronic use of systemic steroids Z79.52 ; Tobacco abuse Z72.0 ; Rheumatoid arthritis, involving unspecified site, unspecified rheumatoid factor presence M06.9 ; Thrombocytopenia D69.6 and Coronary artery disease involving [place] coronary artery of [place] heart without angina pectoris I25.10 [facility] [address], [place] [address]- 2024 July, [facility] [address] [place] [address] 12998- 4666 14 Jun, 2014 [facility] [address] [place] [address] 99081- 8943 Jun, [facility] [id number] [place] [address] 48095- 0707 24 Jul, 2011 [facility] [id number] [place] [address] 76801- 3706 Feb, [facility] [id number], [place] [address]- 1917 Feb, [facility] [address] [place] [address] 85593- 3392 Jan, [facility] [address], [place] [address]- 1181 Jan, [facility] [address], [place] [address]- 8905 17 Jan, 2009 [facility] [address], [place] [address]- 0601 Jan, [facility] [address], [place] [address]- 5795 Jan, [facility] [address], [place] [address]- 6471 Aug, [facility] [address], [place] [address]- 0589 July, IMMUNIZATIONS No Known Immunizations SOCIAL HISTORY Never Assessed REASON FOR VISIT MRI PLAN OF CARE VITAL SIGNS MEDICATIONS Medication Instructions Dosage Frequency Start Date End Date Duration Status Valium 5 mg Orally once 30 min prior to MRI / must have sheet pile driver operator to take her home 1 tablet as needed Sep, 1 dose Active RESULTS No Results PROCEDURES No Known procedures INSTRUCTIONS MEDICATIONS ADMINISTERED No Known Medications MEDICAL (GENERAL) HISTORY Type Description Date Medical History Diabetes Type II Medical History Hypertension Medical History CAD Medical History custodial use of steroids Surgical History Appendectomy 2010 [...]
--- OUTSIDE RECORDS SUMMARY | 2018-03-18 13:03 | XMS REPORT ---
Author Author DIXIE ZELAYA [facility] Address [address] 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 724897010 Problem Coronary artery disease involving [place] coronary artery of [place] heart without angina pectoris I25.10 Active 7510055459492 Problem Chronic idiopathic pain syndrome G89.29 Active 250090257 Problem Post traumatic stress disorder F43.10 Active 32030567 Problem Rheumatoid arthritis, involving unspecified site, unspecified rheumatoid factor presence M06.9 Active 56456095 Problem Type 2 diabetes mellitus with unspecified complications E11.8 Active 37587691 Problem Moderate episode of recurrent major depressive disorder F33.1 Active 061541023 Problem Current chronic use of systemic steroids Z79.52 Active 150423202223106 ALLERGIES No Information ENCOUNTERS Encounter Location Date Diagnosis [facility] [id number] [place] [address] 48307- 8012 Feb, [facility] [id number] [place] [address] 06393- 3655 Nov, [facility] [id number] [place] [address] 69077- 0870 Nov, [facility] [address] 93914- 8175 Oct, [facility] [id number] [place] [address] 88309- 4280 Oct, [facility] [id number] [place] [address] 81089- 9769 Oct, [facility] [address], [place] [address]- 3952 Oct, [facility] [address] [place] [address] 41740- 2326 Oct, Type 2 diabetes mellitus with unspecified complications E11.8 ; Current chronic use of systemic steroids Z79.52 ; Chronic idiopathic pain syndrome G89.29 and Fall W19.XXXA [facility] [address] [place] [address] 72454- 9732 Oct, [facility] [address] [place] [address] Oct, [facility] [id number] [place] [address] 53709- 4381 Sep, Post traumatic stress disorder F43.10 [place] [facility] [id number] [place] [address] 46107- 3626 Sep, Type 2 diabetes mellitus with unspecified complications E11.8 and [facility] 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.4 [place] [address] [address]- 0608 Sep, Type 2 diabetes mellitus with unspecified complications E11.8 ; 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 ; Current chronic use of systemic steroids Z79.52 and Moderate episode of recurrent major depressive disorder F33.1 [place] [address] [address]- 4241 Sep, [facility] [address], [place] [address]- 3801 Sep, [place] [address] [place] [address] 71842- 1741 Aug, [place] [address] [place] [address] 47571- 6527 Aug, [place] [address] [address]- 5644 Aug, Type 2 diabetes mellitus with unspecified complications E11.8 ; 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 ; Current chronic use of systemic steroids Z79.52 ; Tobacco abuse Z72.0 ; Rheumatoid arthritis, involving unspecified site, unspecified rheumatoid factor presence M06.9 ; Thrombocytopenia D69.6 and Coronary artery disease involving [place] coronary artery of [place] heart without angina pectoris I25.10 [facility] [address] [address]- 8465 July, [facility] [address] [place] [address] 64877- 8292 14 Jun, 2014 [facility] [address] [place] [address] 39566- 6081 Jun, [facility] [id number] [place] [address] 34975- 5253 24 Jul, 2011 [facility] [id number] [place] [address] 65366- 8405 Feb, [facility] [id number] [address]- 4593 Feb, [facility] [address] [place] [address] 30441- 0409 Jan, [facility] [address], [place] [address]- 8039 Jan, [facility] [address] [address]- 4790 17 Jan, 2009 [facility] [address] [address]- 2276 Jan, [facility] [address], [place] [address]- 3808 Jan, [facility] [address] [address]- 5874 Aug, [facility] [address] [address]- 1497 July, IMMUNIZATIONS No Known Immunizations SOCIAL HISTORY Never Assessed REASON FOR VISIT Medication Request PLAN OF CARE VITAL SIGNS MEDICATIONS Medication Instructions Dosage Frequency Start Date End Date Duration Status Gabapentin 600 MG Orally Once a day 1 tablet 24h Active Topiramate 50 MG Orally Twice a day 1 tablet 12h Active Restasis 0.05 % Ophthalmic Twice a day 1 drop into affected eye 12h Active Basaglar KwikPen 100 UNIT/ML Subcutaneous Once a day 35 units 24h Active PredniSONE 10 MG 30 Active NovoLog Flexpen 100 UNIT/ML Subcutaneous 3 times a day 12 units 8h Active Metoprolol Tartrate 25 MG Orally Twice a day 1 tablet with food 12h Active Latanoprost 0.005 % 23 Active Ibuprofen 800 MG Orally Three times a day 1 tablet with food or milk as needed 8h Active Atorvastatin Calcium 20 MG 90 Active Venlafaxine HCl ER 75 MG Orally Once a day 1 capsule with food 24h Active Ondansetron HCl 4 MG 4 Active Lansoprazole 30 MG Orally Once a day 1 capsule 24h Active Nitroglycerin 0.4 MG Active Ventolin HFA 108 (90 Base) MCG/ACT Inhalation every 6 hrs 2 puffs as needed 6h Active Xarelto 15 MG Orally Once a day 1 tablet with food 24h Active Cyclobenzaprine HCl 10 mg Orally Three times a day 1 tablet as needed 8h Dec, 30 days Active RESULTS No Results PROCEDURES No Known procedures INSTRUCTIONS MEDICATIONS ADMINISTERED No Known Medications MEDICAL (GENERAL) HISTORY Type Description Date Medical History Diabetes Type II Medical History Hypertension Medical History CAD 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
--- OUTSIDE RECORDS SUMMARY | 2018-03-18 13:03 | XMS REPORT ---
Author Author DIXIE ZELAYA [facility] Address [address] 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 000008815 Problem Coronary artery disease involving cherokee coronary artery of cherokee heart without angina pectoris I25.10 Active 1757393593140 Problem Chronic idiopathic pain syndrome G89.29 Active 041566040 Problem Post traumatic stress disorder F43.10 Active 31648947 Problem Rheumatoid arthritis, involving unspecified site, unspecified rheumatoid factor presence M06.9 Active 49135894 Problem Type 2 diabetes mellitus with unspecified complications E11.8 Active 99942604 Problem Moderate episode of recurrent major depressive disorder F33.1 Active 303319546 Problem Current chronic use of systemic steroids Z79.52 Active [id number] ALLERGIES No Information ENCOUNTERS Encounter Location Date Diagnosis [facility] [id number] [place] [address] 89607- 8885 Feb, [facility] [id number] [place] [address] 62695- 2653 Nov, [facility] [id number] [place] [address] 96787- 5136 Oct, [facility] [address] [address]- [address]33 Oct, [facility] [id number] [place] [address] 17231- 7309 Oct, [facility] [id number] [place] [address] 51564- 3505 Oct, [place] [address], [place] [address] Oct, Type 2 diabetes mellitus with unspecified complications E11.8 ; Current chronic use of systemic steroids Z79.52 ; Chronic idiopathic pain syndrome G89.29 and Fall W19.XXXA [place] [id number] [place] [address] 32882- 8081 Oct, [facility] [address] [place] [address] Oct, [place] [id number] [place] [address] 19359- 6741 Sep, Post traumatic stress disorder F43.10 [place] [id number] [place] [address] 85469- 9645 Sep, Type 2 diabetes mellitus with unspecified complications E11.8 and prison 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.4 [place] [id number] [place] [address] 85348- 5093 Sep, Type 2 diabetes mellitus with unspecified complications E11.8 ; intermediate card tender 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.4 ; Current chronic use of systemic steroids Z79.52 and Moderate episode of recurrent major depressive disorder F33.1 [place] [id number] [place] [address] 69457- 0609 Sep, [place] [address] [place] [address] 48889- 9164 Sep, [place] [address] [place] [address] 83211- 7964 Aug, [place] [id number] [place] [address] 84407- 9776 Aug, [place] [address] [place] [address] 21421- 2258 Aug, Type 2 diabetes mellitus with unspecified complications E11.8 ; intermediate card tender 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.4 ; Current chronic use of systemic steroids Z79.52 ; Tobacco abuse Z72.0 ; Rheumatoid arthritis, involving unspecified site, unspecified rheumatoid factor presence M06.9 ; Thrombocytopenia D69.6 and Coronary artery disease involving cherokee coronary artery of cherokee heart without angina pectoris I25.10 [facility] [address] [address] 150[address] July, [facility] [id number] [address]65 14 Jun, 2014 [facility] [id number] [place] [address] 87346- 0500 Jun, [facility] [id number] [place] [address] 19227- 0556 July, [facility] [id number] [place] [address] 69417- 7961 Feb, [facility] [id number] [place] [address] 35912- 2261 Feb, [facility] [id number] [address] 3184 Jan, [facility] [id number] [place] [address] 81383- 9400 Jan, [facility] [address], [place] [address] 5023 Jan, [facility] [address], [place] [address] 6563 Jan, [facility] [address], [place] [address] 2553 Jan, [facility] [id number] [place] [address] 35259- 2174 Aug, [facility] [id number] [place] [address] 16762- 4968 July, IMMUNIZATIONS No Known Immunizations SOCIAL HISTORY Never Assessed REASON FOR VISIT Diabetic Test Strips PLAN OF CARE VITAL SIGNS MEDICATIONS Medication Instructions Dosage Frequency Start Date End Date Duration Status ReliOn Blood Glucose Test - as directed 6h Sep, Active RESULTS No Results PROCEDURES No Known procedures INSTRUCTIONS MEDICATIONS ADMINISTERED No Known Medications MEDICAL (GENERAL) HISTORY Type Description Date Medical History Diabetes Type II Medical History Hypertension Medical History CAD 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
--- OUTSIDE RECORDS SUMMARY | 2018-03-18 13:03 | XMS REPORT ---
Author Author DIXIE ZELAYA [facility] Address [address] 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.4 Active 826378053 Problem Coronary artery disease involving elim ira coronary artery of elim ira heart without angina pectoris I25.10 Active 4349290039602 Problem Chronic idiopathic pain syndrome G89.29 Active 487358035 Problem Post traumatic stress disorder F43.10 Active 24457242 Problem Rheumatoid arthritis, involving unspecified site, unspecified rheumatoid factor presence M06.9 Active 36981399 Problem Type 2 diabetes mellitus with unspecified complications E11.8 Active 88784763 Problem Moderate episode of recurrent major depressive disorder F33.1 Active 344648661 Problem Current chronic use of systemic steroids Z79.52 Active 483266770677076 ALLERGIES Substance Reaction Event Type Date Status Bactrim nausea and vomiting Drug Allergy Sep, Active ENCOUNTERS Encounter Location Date Diagnosis [facility] [place] [id number] [address] Feb, [facility] [place] [address] [address] 6684 Nov, [facility] [place] [id number] [address] 9717 Oct, [facility] [place] [address] [address]- 2662 Oct, [facility] [place] [id number] [address]- 5611 Oct, [facility] [place] [id number] [address]- 9990 Oct, [facility] [place] [id number] [place] [address] 73179- 0099 Oct, Type 2 diabetes mellitus with unspecified complications E11.8 ; Current chronic use of systemic steroids Z79.52 ; Chronic idiopathic pain syndrome G89.29 and Fall W19.XXXA [facility] [place] [id number] [place] [address] 40011- 9358 Oct, [facility] [address] [place] [address] Oct, [facility] [place] [id number] [place] [address] 85668- 1616 Sep, Post traumatic stress disorder F43.10 [place] [id number] [place] [address] 42907- 9511 Sep, Type 2 diabetes mellitus with unspecified complications E11.8 and [facility] 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.4 [place] [id number] [place] [address] 94238- 0577 Sep, Type 2 diabetes mellitus with unspecified complications E11.8 ; 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.4 ; Current chronic use of systemic steroids Z79.52 and Moderate episode of recurrent major depressive disorder F33.1 [place] [id number] [place] [address] 58558- 9946 Sep, [place] [id number] [place] [address] 94986- 0697 Sep, [facility] [place] [id number] [place] [address] 94970- 1541 Aug, [facility] [place] [id number] [place] [address] 05786- 1671 Aug, [facility] [place] [address], [place] [address]- 3915 Aug, Type 2 diabetes mellitus with unspecified complications E11.8 ; [facility] 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.4 ; Current chronic use of systemic steroids Z79.52 ; Tobacco abuse Z72.0 ; Rheumatoid arthritis, involving unspecified site, unspecified rheumatoid factor presence M06.9 ; Thrombocytopenia D69.6 and Coronary artery disease involving elim ira coronary artery of elim ira heart without angina pectoris I25.10 [facility] [place] [address] [address]- 3227 July, [facility] [place] [id number] [place] [address] 32066- 3723 14 Jun, 2014 [facility] [place] [id number] [place] [address] 98827- 6400 Jun, [facility] [place] [id number] [place] [address] 26548- 3875 July, [facility] [place] [id number] [place] [address] 01620- 7540 Feb, [facility] [place] [id number] [place] [address] 10421- 0265 Feb, [facility] [place] [id number] [place] [address] 93808- 2305 Jan, [facility] [place] [id number] [place] [address] 74382- 7108 Jan, [facility] [place] [address] [address]- 9251 17 Jan, 2009 [facility] [place] [id number] [place] [address] 62517- 8003 Jan, [facility] [place] [address], [place] [address]- 7607 Jan, [facility] [place] [id number] [place] [address] 21321- 2502 Aug, [facility] [place] [address], [place] [address]- 4351 July, IMMUNIZATIONS No Known Immunizations SOCIAL HISTORY Never Assessed REASON FOR VISIT 4 wk f/u WB-MA, PT has a loss of appetite, PT also has elevated fatigue along with muscle spasms throughout the body, PT says she is seeing double vision in her left eye and has a sharp pain behind it PLAN OF CARE Activity Details Follow Up 6 Weeks Reason:DMT2 VITAL SIGNS Height 63.1 in 2017-10-08 Weight 173 lbs 2017-10-08 Temperature 97.7 degrees Fahrenheit 2017-10-08 Heart Rate 114 bpm 2017-10-08 Respiratory Rate 20 2017-10-08 BMI 30.55 kg/m2 2017-10-08 Blood pressure systolic 114 mmHg 2017-10-08 Blood pressure diastolic 68 mmHg 2017-10-08 MEDICATIONS Medication Instructions Dosage Frequency Start Date End Date Duration Status Aspir-81 81 MG Orally Once a day 1 tablet 24h Active Restasis 0.05 % Ophthalmic Twice a day 1 drop into affected eye 12h Not-Taking Ondansetron HCl 4 MG 4 Not-Taking Lansoprazole 30 MG Orally Once a day 1 capsule 24h Active Insulin Glargine 100 UNIT/ML Subcutaneous at bedtime 35 units Active PredniSONE 10 MG 30 Not-Taking Venlafaxine HCl ER 75 MG Orally Once a day 1 capsule with food 24h Active Test strips 8h Active Insulin Aspart 100 UNIT/ML Unknown NovoLog Flexpen 100 UNIT/ML Subcutaneous 3 times a day 12 units 8h Active Metoprolol Tartrate 25 MG Orally Twice a day 1 tablet with food 12h Active Atorvastatin Calcium 40 MG Orally Once a day 1 tablet 24h Active PredniSONE 10 MG Orally Once a day 1 tablet 24h Active Lancets Active Latanoprost 0.005 % 23 Not-Taking Ondansetron 4 MG Orally every 6 hrs 1 tablet 6h Active Basaglar KwikPen 100 UNIT/ML Subcutaneous Once a day 35 units 24h Not-Taking Metoprolol Tartrate 25 MG Orally Twice a day 1 tablet with food 12h Not-Taking Nitroglycerin 0.4 MG Not-Taking Xarelto 15 MG Orally Once a day 1 tablet with food 24h Active Lansoprazole 30 MG Orally Once a day 1 capsule 24h Unknown Cyclobenzaprine HCl 10 MG Orally Three times a day 1 tablet as needed 8h Not-Taking Albuterol Sulfate (2.5 MG/3ML) 0.083% Inhalation Three times a day 3 ml as needed 8h Active Gabapentin 600 MG Orally Once a day 1 tablet 24h Not-Taking Ventolin HFA 108 (90 Base) MCG/ACT Inhalation every 6 hrs 2 puffs as needed 6h Not-Taking Orphenadrine Citrate ER 100 mg Orally Twice a day 1 tablet 12h Unknown Venlafaxine HCl ER 75 MG Orally Once a day 1 capsule with food 24h Unknown Atorvastatin Calcium 20 MG 90 Not-Taking Topiramate 50 MG Orally Twice a day 1 tablet 12h Active Rivaroxaban 15 MG Orally Once a day 1 tablet with food 24h Unknown Ibuprofen 800 MG Orally Three times a day 1 tablet with food or milk as needed 8h Not-Taking CycloSPORINE 0.05 % Ophthalmic Twice a day 1 drop into affected eye 12h Active Topiramate 50 MG Orally Twice a day 1 tablet 12h Unknown Promethazine-DM 6.25-15 MG/5ML Orally every 6 hrs 5 ml as needed 6h Active Gabapentin 300 MG Orally Twice a day 1 capsule 12h Active Fenofibrate Micronized 134 MG Orally Once a day 1 capsule with a meal 24h Active RESULTS No Results PROCEDURES Procedure Date Ordered Result Body Site [facility] VISIT ESTABLISHED PATIENT October 08, 2017 INSTRUCTIONS MEDICATIONS ADMINISTERED No Known Medications MEDICAL (GENERAL) HISTORY Type Description Date Medical History Diabetes Type II Medical History Hypertension Medical History CAD 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
--- OUTSIDE RECORDS SUMMARY | 2018-03-18 13:03 | XMS REPORT ---
Author Author DIXIE ZELAYA Organization [facility] Address [address] 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.4 Active 342913748 Problem Coronary artery disease involving chilkat coronary artery of chilkat heart without angina pectoris I25.10 Active 3330824469811 Problem Chronic idiopathic pain syndrome G89.29 Active 465655054 Problem Post traumatic stress disorder F43.10 Active 88022439 Problem Rheumatoid arthritis, involving unspecified site, unspecified rheumatoid factor presence M06.9 Active 62289667 Problem Type 2 diabetes mellitus with unspecified complications E11.8 Active 11920319 Problem Moderate episode of recurrent major depressive disorder F33.1 Active 975016236 Problem Current chronic use of systemic steroids Z79.52 Active 715072619218611 ALLERGIES Substance Reaction Event Type Date Status Bactrim nausea and vomiting Drug Allergy Aug, Active ENCOUNTERS Encounter Location Date Diagnosis [facility] [id number] [address] Feb, [facility] [id number] [address] Oct, [facility] [id number] [address]- 3634 Oct, [facility] [id number] [place] [address] 15043- 8557 Oct, [facility] [id number] [address]- 3303 Oct, Type 2 diabetes mellitus with unspecified complications E11.8 ; Current chronic use of systemic steroids Z79.52 ; Chronic idiopathic pain syndrome G89.[address] [facility] [id number] [place] [address] 35284- 1505 Oct, [facility] [address] [place] [address] Oct, [facility] [id number] [place] [address] 17711- 7785 Sep, Post traumatic stress disorder F43.10 [facility] [id number] [place] [address] 16792- 5485 Sep, Type 2 diabetes mellitus with unspecified complications E11.8 and manager long term care 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.4 [place] [id number] [place] [address] 42736- 6267 Sep, Type 2 diabetes mellitus with unspecified complications E11.8 ; prison 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.4 ; Current chronic use of systemic steroids Z79.52 and Moderate episode of recurrent major depressive disorder F33.1 [facility] [id number] [place] [address] 84052- 0167 Sep, [facility] [id number] [place] [address] 91242- 3703 Sep, [place] [address] [place] [address] 17582- 7915 Aug, [facility] [address] [place] [address] 94814- 9372 Aug, [place] [address] [place] [address] 00429- 3332 Aug, Type 2 diabetes mellitus with unspecified complications E11.8 ; prison 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.4 ; Current chronic use of systemic steroids Z79.52 ; Tobacco abuse Z72.0 ; Rheumatoid arthritis, involving unspecified site, unspecified rheumatoid factor presence M06.9 ; Thrombocytopenia D69.6 and Coronary artery disease involving chilkat coronary artery of chilkat heart without angina pectoris I25.10 [place] [address] [address] July, [facility] [address] [address] 7[address] Jun, [facility] [id number] [address] 2686 Jun, [facility] [address] [address] 9529 July, [facility] [address] [address] Feb, [facility] [address] [place] [address] 01712- 8934 Feb, [facility] [address] [address] 0023 Jan, [facility] [id number] [address] 3945 Jan, [facility] [id number] Jan, [facility] [id number] [address] 8068 Jan, [facility] [id number] [address] 6055 Jan, [facility] [id number] [address]- [address]046 Aug, [facility] [id number] [address]- 7619 July, IMMUNIZATIONS No Known Immunizations SOCIAL HISTORY Never Assessed REASON FOR VISIT Establish Care - Danii TESFAYE PLAN OF CARE Activity Details Follow Up 4 Weeks Reason:DMT2 / RA VITAL SIGNS Height 63.1 in 2017-09-10 Weight 174.6 lbs 2017-09-10 Temperature 97.7 degrees Fahrenheit 2017-09-10 Heart Rate 80 bpm 2017-09-10 Respiratory Rate 20 2017-09-10 BMI 30.83 kg/m2 2017-09-10 Blood pressure systolic 120 mmHg 2017-09-10 Blood pressure diastolic 86 mmHg 2017-09-10 MEDICATIONS Medication Instructions Dosage Frequency Start Date End Date Duration Status Venlafaxine HCl ER 75 MG Orally Once a day 1 capsule with food 24h Active Promethazine-DM 6.25-15 MG/5ML Orally every 6 hrs 5 ml as needed 6h Active Topiramate 50 MG Orally Twice a day 1 tablet 12h Active Insulin Glargine 100 UNIT/ML Subcutaneous at bedtime 35 units Active Orphenadrine Citrate ER 100 mg Orally Twice a day 1 tablet 12h Active Albuterol Sulfate (2.5 MG/3ML) 0.083% Inhalation Three times a day 3 ml as needed 8h Active Gabapentin 300 MG Orally Twice a day 1 capsule 12h Active Metoprolol Tartrate 25 MG Orally Twice a day 1 tablet with food 12h Active Aspir-81 81 MG Orally Once a day 1 tablet 24h Active Insulin Aspart 100 UNIT/ML Active CycloSPORINE 0.05 % Ophthalmic Twice a day 1 drop into affected eye 12h Active PredniSONE 10 MG Orally Once a day 1 tablet 24h Active Ondansetron 4 MG Orally every 6 hrs 1 tablet 6h Active Fenofibrate Micronized 134 MG Orally Once a day 1 capsule with a meal 24h Active Rivaroxaban 15 MG Orally Once a day 1 tablet with food 24h Active Lancets Active Atorvastatin Calcium 40 MG Orally Once a day 1 tablet 24h Active Lansoprazole 30 MG Orally Once a day 1 capsule 24h Active Test strips 8h Active RESULTS No Results PROCEDURES Procedure Date Ordered Result Body Site EKG, TRACING (IN-HOUSE) 2017-09-10 nonspecific TWI, known CAD MICROALBUMIN, SEMIQUANT September 10, 2017 ELECTROCARDIOGRAM, TRACING September 10, 2017 [facility] 10, 2017 GLYCATED HEMOGLOBIN TEST September 10, 2017 [facility] VISIT NEW PATIENT September 10, 2017 INSTRUCTIONS MEDICATIONS ADMINISTERED No Known Medications MEDICAL (GENERAL) HISTORY Type Description Date Medical History Diabetes Type II Medical History Hypertension Medical History CAD Medical History manager long term care use of steroids Surgical History Appendectomy 2010 [...]
--- OUTSIDE RECORDS SUMMARY | 2018-03-18 13:03 | XMS REPORT ---
Author Author DIXIE ZELAYA Organization [facility] Address [address] 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 936200872 Problem Coronary artery disease involving [place] coronary artery of [place] heart without angina pectoris I25.10 Active 1487516609304 Problem Chronic idiopathic pain syndrome G89.29 Active 382681703 Problem Post traumatic stress disorder F43.10 Active 82604678 Problem Rheumatoid arthritis, involving unspecified site, unspecified rheumatoid factor presence M06.9 Active 44984626 Problem Type 2 diabetes mellitus with unspecified complications E11.8 Active 83480217 Problem Moderate episode of recurrent major depressive disorder F33.1 Active 345676197 Problem Current chronic use of systemic steroids Z79.52 Active [id number] ALLERGIES No Information ENCOUNTERS Encounter Location Date Diagnosis [place] [id number] [place] [address] Feb, [place] [address] [place] [id number] [place] [address] 27398- 7497 Oct, [place] [address] [place] [id number] [place] [address] 97299- 6553 Oct, [place] [address] [address] Oct, [place] [address] [place] [id number] [place] [address] 80648- 9961 13 Oct, 2017 Type 2 diabetes mellitus with unspecified complications E11.8 ; Current chronic use of systemic steroids Z79.52 ; Chronic idiopathic pain syndrome G89.29 and Fall W19.XXXA [facility] [address] [place] [address]10- 5752 Oct, [facility] [address] [place] [address] Oct, [facility] [address] [place] [address]26- 7306 Sep, Post traumatic stress disorder F43.10 [place] [address] [place] [id number] [place] [address] 14364- 9539 Sep, Type 2 diabetes mellitus with unspecified complications E11.8 and shelter 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.4 [place] [address] [place] [id number] [place] [address] 82637- 2313 Sep, Type 2 diabetes mellitus with unspecified complications E11.8 ; shelter 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.4 ; Current chronic use of systemic steroids Z79.52 and Moderate episode of recurrent major depressive disorder F33.1 [place] [address] [place] [address] 21506- 6541 Sep, [place] [address] [place] [id number] [place] [address] 91740- 3027 Sep, [place] [id number] [place] [address] 48449- 9498 Aug, [place] [address] [place] [address] 54475- 2778 Aug, [place] [address] [place] [address] 75918- 7697 Aug, Type 2 diabetes mellitus with unspecified complications E11.8 ; middle or intermediate school principal 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.4 ; Current chronic use of systemic steroids Z79.52 ; Tobacco abuse Z72.0 ; Rheumatoid arthritis, involving unspecified site, unspecified rheumatoid factor presence M06.9 ; Thrombocytopenia D69.6 and Coronary artery disease involving [place] coronary artery of [place] heart without angina pectoris I25.10 [place] [address] [place] [id number] [place] [address] 26052- 6755 July, [facility] [address] [address] Jun, [facility] [address] [address] Jun, [facility] [address] [address] July, [facility] [address] [address] Feb, [facility] [address] [address] Feb, [facility] [address] [address] Jan, [facility] [address] [address] Jan, [facility] [address] [address] Jan, [facility] [address] [address] 8768 Jan, [facility] [address] [address] 8[address] Jan, [facility] [address] [place] [id number] [address] Aug, [facility] [address] [place] [id number] [address] July, IMMUNIZATIONS No Known Immunizations SOCIAL HISTORY Never Assessed REASON FOR VISIT DM ED PLAN OF CARE VITAL SIGNS MEDICATIONS Unknown Medications RESULTS No Results PROCEDURES No Known procedures INSTRUCTIONS MEDICATIONS ADMINISTERED No Known Medications MEDICAL (GENERAL) HISTORY Type Description Date Medical History Diabetes Type II Medical History Hypertension Medical History CAD Medical History 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
--- OUTSIDE RECORDS SUMMARY | 2018-03-18 13:04 | XMS REPORT ---
Author Author DIXIE ZELAYA Organization [facility] Address [address] 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.4 Active 876181031 Problem Coronary artery disease involving [place] coronary artery of [place] heart without angina pectoris I25.10 Active 8805540226400 Problem Chronic idiopathic pain syndrome G89.29 Active 432160870 Problem Post traumatic stress disorder F43.10 Active 80148549 Problem Rheumatoid arthritis, involving unspecified site, unspecified rheumatoid factor presence M06.9 Active 28886089 Problem Type 2 diabetes mellitus with unspecified complications E11.8 Active 09219899 Problem Moderate episode of recurrent major depressive disorder F33.1 Active 223567678 Problem Current chronic use of systemic steroids Z79.52 Active [id number] ALLERGIES No Information ENCOUNTERS Encounter Location Date Diagnosis [facility] [address] [place] [id number] [place] [address]35- 1417 Oct, [facility] [address] [place] [id number] [place] [address] 93867- 5259 Oct, [facility] [address] [place] [id number] [place] [address] 02113- 7818 Oct, Type 2 diabetes mellitus with unspecified complications E11.8 ; Current chronic use of systemic steroids Z79.52 ; Chronic idiopathic pain syndrome G89.29 and Fall W19.XXXA [facility] [address] [place] [id number] [place] [address] 10300- 9062 Oct, [facility] [address] [place] [address] Oct, [facility] [address], [place] [address] Sep, Post traumatic stress disorder F43.10 [facility] [address] [place] [id number] [place] [address] 78516- 9959 Sep, Type 2 diabetes mellitus with unspecified complications E11.8 and prison 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.4 [place] [address] [place] [id number] [place] [address] 78166- 9188 Sep, Type 2 diabetes mellitus with unspecified complications E11.8 ; terminologist 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.4 ; Current chronic use of systemic steroids Z79.52 and Moderate episode of recurrent major depressive disorder F33.1 [place] [address] [place] [id number] [place] [address] 72262- 4858 Sep, [place] [address] [place] [id number] [place] [address] 61810- 3794 Sep, [facility] [address] [place] [id number] [place] [address] 01413- 3014 Aug, [place] [address] [place] [id number] [place] [address] 24511- 9355 Aug, [place] [address] [place] [id number] [place] [address] 94845- 5002 Aug, Type 2 diabetes mellitus with unspecified complications E11.8 ; prison 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.4 ; Current chronic use of systemic steroids Z79.52 ; Tobacco abuse Z72.0 ; Rheumatoid arthritis, involving unspecified site, unspecified rheumatoid factor presence M06.9 ; Thrombocytopenia D69.6 and Coronary artery disease involving [place] coronary artery of [place] heart without angina pectoris I25.10 [facility] [address] [place] [id number] [place] [address] 61575- 0894 July, [facility] [address] [place] [id number] [place] [address] 84113- 9402 Jun, [facility] [address] [place] [id number] [place] [address] 56093- 3507 Jun, [facility] [address] [facility] [id number] [address] July, [facility] [address] [facility] [id number] [address] 14 Feb, 2010 [facility] [address] [facility] [id number] [address] Feb, [facility] [address] [facility] [id number] [address] Jan, [facility] [address] [facility] [id number] [address] Jan, [facility] [address] [facility] [id number], [place] [address] 17 Jan, 2009 [facility] [address], [place] [address]- [address] Jan, [facility] [address] [place] [id number] [address] 1[address] Jan, [facility] [address] [place] [id number], [place] [address] 2836 Aug, [facility] [address] [place] [id number], [place] [address]26 July, IMMUNIZATIONS No Known Immunizations SOCIAL HISTORY [...]
[2018-03-18 13:05] VITALS: BP 101/67
[2018-03-18] MEDS ORDERED: ONDANSETRON 4 MG/2 ML (SDV) Z0FRAN ONE (13:15)
[2018-03-18] MEDS ORDERED: HURRICAINE EXT TUBE (BENZOCAINE) XX PRN (13:15)
[2018-03-18] MEDS ORDERED: proPOfol 200 MG/20 ML (DIPRIVAN) VIAL IV ONE (13:36)
[2018-03-18] MEDS ORDERED: MIDAZOLAM 2 MG/2 ML (VERSED) VIAL ONE (13:36)
[2018-03-18] MEDS ORDERED: HURRICAINE EXT TUBE (BENZOCAINE) ONE (13:36)
--- NOTE | 2018-03-18 13:42 | Progress Note-Pre Operative ---
Pre-Operative Progress Note H&P Reviewed The H&P was reviewed, patient examined and no changes noted. Time Seen by Provider: 12:37 Date H&P Reviewed: Mar 18, 2018 Time H&P Reviewed: 12:37 Pre-Operative Diagnosis: Dysphagia, Melena, Anemia DIGNA MARISCAL DO Mar 18, 2018 13:42
--- NOTE | 2018-03-18 14:18 | Progress Note-Post Operative ---
Post-Operative Progess Note Surgeon (s)/Joiner (s) Surgeon DIGNA MARISCAL DO Joiner: none Pre-Operative Diagnosis Dysphagia, Melena, Anemia Post-Operative Diagnosis Gastritis, Diverticula, Internal Hemorrhoids Melena, Anemia Procedure & Operative Findings Date of Procedure 03/18/18 Procedure Performed/Findings EGD with bx Colonoscopy Anesthesia Type IV sedation by anesthesia Estimated Blood Loss Estimated blood loss (mL): scant Specimens/Packing Specimens Removed Antral bx GE jxn bx DIGNA MARISCAL DO Mar 18, 2018 14:18
--- NOTE | 2018-03-18 14:20 | Endoscopy Discharge Instruct ---
Endo Procedure/Findings Findings 1.: Gastritis 2.: Diverticulosis 3.: Internal Hemorrhoids Discharge Instructions - Activity: You might feel a little sleepy until tomorrow. This is due to the medicine you received to relax you. Until tomorrow, you should: NOT drive a car, operate machinery or power tools. NOT drink any alcoholic beverages. NOT make any important decisions or sign importortant papers. Do not return to work until tomorrow, unless otherwise instructed. Resume previous activities tomorrow. Diet: Start by taking liquids. If you tolerate liquids, advance to solid food. make an appointment for one week Notify Physician - If you experience excessive bleeding, unusual abdominal pain, fever, or chest pain, contact your doctor immediately. Follow-Up: - I have received and understand the above instructions and will call my doctor if I have any further questions. Patient Signature Date Nurse Signature Other (Relationship) DIGNA MARISCAL DO Mar 18, 2018 14:19
[2018-03-18 14:30] VITALS: BP 84/48
[2018-03-18 15:00] VITALS: BP 90/55
--- NOTE | 2018-03-18 15:07 | Anesthesia-General Post-Op ---
MAC Patient Condition Mental Status/LOC: Same as Preop Cardiovascular: Satisfactory Nausea/Vomiting: Absent Respiratory: Satisfactory Pain: Controlled Complications: Absent Post Op Complications Complications None Follow Up Care/Instructions Patient Instructions None needed. Anesthesiology Discharge Order Discharge Order Patient is doing well, no complaints, stable vital signs, no apparent adverse anesthesia problems. No complications reported per nursing. ZENY FONSECA CRNA Mar 18, 2018 15:07
[2018-03-18 15:15] VITALS: BP 90/55
--- NOTE | 2018-03-20 01:30 | OPERATIVE REPORT ---
DATE OF SERVICE: 03/18/2018 PREOPERATIVE DIAGNOSES: 1. Anemia. 2. Dysphagia. POSTOPERATIVE DIAGNOSES: 1. Gastritis. 2. Diverticula. 3. Internal hemorrhoids. 4. Anemia. PROCEDURES: 1. EGD with biopsy. 2. Colonoscopy. SURGEON: Sage Singh DO. STRIP FEEDER: None. ANESTHESIA: IV sedation by anesthesiologist. SPECIMEN: One biopsy from the antrum and one biopsy from the body of stomach. BLOOD LOSS: Scant. FLUIDS: Per anesthesia. POSTOPERATIVE CONDITION: Stable. INDICATION FOR PROCEDURE: The patient is a 57-year-old female who has been having some trouble swallowing, some anemia, possibly melena and needed an EGD and a colonoscopy. FINDINGS: The patient had some mild gastritis, she also had some in the stomach. She had some diverticula and internal hemorrhoids in the colon. PROCEDURE NOTE: After informed consent was obtained, the patient was brought to the endoscopy suite, placed in the bed in the left lateral decubitus position. She was administered IV sedation by the anesthesiologist and monitored her vitals the entire time, heart rate, blood pressure and pulse ox and the scope was inserted down the mouth through the esophagus into the stomach. Unfortunately, the patient had a little bit of retained food in the stomach, but able to visualize past this, looked at the antrum, mild gastritis. Did a biopsy here and then believe a biopsy of the body of stomach was then done, pushed into the duodenum and duodenum looked fine. Retroflexed the scope, the patient did not appear to have a hiatal hernia. GE junction looked okay, pulled the scope up the esophagus, which also looked okay, no signs or any reasons for dysphagia. Pulled scope out the esophagus and out the mouth, switched the scopes, switched cameras and went down below. The patient had a previous colon resection and you could see a blind and then the other end in the rectal vault, a picture of this was taken, pushed pass this all the way to the cecum. On the way in, noted some diverticula, took a picture. Once in the cecum, took a picture of appendiceal orifice and then able to get into the terminal ileum, took a picture of this and then slowly withdrew the scope insufflating to look circumferentially at the rai looking at the cecum up the ascending colon to the hepatic flexure, down the transverse colon to the splenic flexure, into the descending colon. The patient had some most likely descending colon and sigmoid colon removed pulled down into the rectal vault and retroflexed could see some internal hemorrhoids, took a picture of this and then removed the scope. The patient tolerated the procedure well. Job ID: [id number] DocumentID: [id number] Dictated Date: 03/19/2018 19:15:06 Advisory Intern Date: 03/20/2018 01:29:30 Dictated By: SAGE SINGH DO
== END 2018-03-18 13:15 | disposition home or self-care (01) ==
LOC: ENDO 12:56
PROVIDERS: ATTEND Surgery
DX: K29.70 Gastritis, unspecified, without bleeding (principal); K57.30 Diverticulosis of large intestine without perforation or abscess without bleeding; K64.8 Other hemorrhoids; D64.9 Anemia, unspecified; K92.1 Melena; E11.9 Type 2 diabetes mellitus without complications; R13.13 Dysphagia, pharyngeal phase; I25.10 Atherosclerotic heart disease of native coronary artery without angina pectoris; K58.9 Irritable bowel syndrome, unspecified; R09.02 Hypoxemia; I25.2 Old myocardial infarction; F31.9 Bipolar disorder, unspecified; M06.9 Rheumatoid arthritis, unspecified; I11.9 Hypertensive heart disease without heart failure; J44.9 Chronic obstructive pulmonary disease, unspecified; M79.7 Fibromyalgia; F17.210 Nicotine dependence, cigarettes, uncomplicated; Z79.01 Long term (current) use of anticoagulants; Z95.5 Presence of coronary angioplasty implant and graft; F41.9 Anxiety disorder, unspecified; K21.9 Gastro-esophageal reflux disease without esophagitis; Z79.899 Other long term (current) drug therapy; Z79.4 Long term (current) use of insulin
CPT/HCPCS: 82962

== ENCOUNTER 2018-05-21 11:45 | Outpatient (RCR) | payer MEDICARE, MEDICAID ==
[2018-02-27 13:32] LABS: BASOPHILS # (AUTO) 0.1 10^3/uL (0.0-0.1); BASOPHILS % (AUTO) 1 % (0-10); EOSINOPHILS # (AUTO) 0.2 10^3/uL (0.0-0.3); EOSINOPHILS % (AUTO) 1 % (0-10); HEMATOCRIT 36 % (35-52); HEMOGLOBIN 11.2 G/DL (11.5-16.0); LYMPHOCYTES # (AUTO) 4.6 X 10^3 (1.0-4.0); LYMPHOCYTES % (AUTO) 28 % (12-44); MEAN CORPUSCULAR HEMOGLOBIN 22 PG (25-34); MEAN CORPUSCULAR HGB CONC 31 G/DL (32-36); MEAN CORPUSCULAR VOLUME 71 FL (80-99); MEAN PLATELET VOLUME 9.7 FL (7.4-10.4); MONOCYTES # (AUTO) 1.3 X 10^3 (0.0-1.0); MONOCYTES % (AUTO) 8 % (0-12); NEUTROPHILS % (AUTO) 62 % (42-75); PLATELET COUNT 686 10^3/uL (130-400); RED CELL DISTRIBUTION WIDTH 18.6 % (10.0-14.5); WHITE BLOOD COUNT 16.2 10^3/uL (4.3-11.0)
[2018-02-27 13:52] LABS: ALBUMIN 4.1 GM/DL (3.2-4.5); BILIRUBIN,TOTAL 0.5 MG/DL (0.1-1.0); CALCIUM 10.2 MG/DL (8.5-10.1); CREATININE SERUM 1.24 MG/DL (0.60-1.30); POTASSIUM 3.7 MMOL/L (3.6-5.0); TOTAL PROTEIN 7.8 GM/DL (6.4-8.2)
[2018-04-10 11:35] LABS: BASOPHILS # (AUTO) 0.1 10^3/uL (0.0-0.1); BASOPHILS % (AUTO) 1 % (0-10); EOSINOPHILS # (AUTO) 0.3 10^3/uL (0.0-0.3); EOSINOPHILS % (AUTO) 2 % (0-10); HEMATOCRIT 38 % (35-52); HEMOGLOBIN 11.6 G/DL (11.5-16.0); LYMPHOCYTES # (AUTO) 3.3 X 10^3 (1.0-4.0); LYMPHOCYTES % (AUTO) 26 % (12-44); MEAN CORPUSCULAR HEMOGLOBIN 22 PG (25-34); MEAN CORPUSCULAR HGB CONC 31 G/DL (32-36); MEAN CORPUSCULAR VOLUME 72 FL (80-99); MEAN PLATELET VOLUME 9.6 FL (7.4-10.4); MONOCYTES # (AUTO) 1.3 X 10^3 (0.0-1.0); MONOCYTES % (AUTO) 10 % (0-12); NEUTROPHILS # (AUTO) 7.9 X 10^3 (1.8-7.8); NEUTROPHILS % (AUTO) 61 % (42-75); PLATELET COUNT 690 10^3/uL (130-400); RED CELL DISTRIBUTION WIDTH 19.8 % (10.0-14.5); WHITE BLOOD COUNT 12.8 10^3/uL (4.3-11.0)
[2018-04-10 11:53] LABS: ALBUMIN 4.2 GM/DL (3.2-4.5); BILIRUBIN,TOTAL 0.3 MG/DL (0.1-1.0); CALCIUM 10.5 MG/DL (8.5-10.1); CREATININE SERUM 1.18 MG/DL (0.60-1.30); TOTAL PROTEIN 7.8 GM/DL (6.4-8.2)
[~2018-05-21 11:45] MED LIST changes: +FERRIC CARBOXYMALTOSE (CANCER) 750 MG in NS (IVPB) CANCER CENTER 250 ML IV SCH; -GABA600T2 PO; +GBPN600T PO
== END 2018-05-28 | disposition home or self-care (01) ==
LOC: ONC 11:45
PROVIDERS: ATTEND Internal Medicine Hematology & Oncology
DX: D72.829 Elevated white blood cell count, unspecified (principal); D47.3 Essential (hemorrhagic) thrombocythemia; E61.1 Iron deficiency; Z86.711 Personal history of pulmonary embolism; R63.4 Abnormal weight loss; M62.81 Muscle weakness (generalized); F17.210 Nicotine dependence, cigarettes, uncomplicated; M79.7 Fibromyalgia; M06.9 Rheumatoid arthritis, unspecified; E78.5 Hyperlipidemia, unspecified; I25.10 Atherosclerotic heart disease of native coronary artery without angina pectoris; I12.9 Hypertensive chronic kidney disease with stage 1 through stage 4 chronic kidney disease, or unspecified chronic kidney disease; N18.9 Chronic kidney disease, unspecified; E11.22 Type 2 diabetes mellitus with diabetic chronic kidney disease; E11.65 Type 2 diabetes mellitus with hyperglycemia; F41.9 Anxiety disorder, unspecified; R23.2 Flushing; J44.9 Chronic obstructive pulmonary disease, unspecified; Z87.440 Personal history of urinary (tract) infections; Z87.01 Personal history of pneumonia (recurrent); Z79.01 Long term (current) use of anticoagulants; Z79.899 Other long term (current) drug therapy; Z79.52 Long term (current) use of systemic steroids; Z79.82 Long term (current) use of aspirin; Z79.4 Long term (current) use of insulin
CPT/HCPCS: 36415; 80053; 85025; 96365; 99213

== ENCOUNTER 2018-06-26 09:51 | Outpatient (RCR) | payer MEDICAID, MEDICARE ==
[~2018-06-26 09:51] MED LIST changes: -FERRIC CARBOXYMALTOSE (CANCER) 750 MG in NS (IVPB) CANCER CENTER 250 ML IV SCH; -RIVA15TA PO; +RIVA15TA2 PO
[2018-06-26 10:01] LABS: BASOPHILS # (AUTO) 0.1 10^3/uL (0.0-0.1); BASOPHILS % (AUTO) 1 % (0-10); EOSINOPHILS # (AUTO) 0.3 10^3/uL (0.0-0.3); EOSINOPHILS % (AUTO) 3 % (0-10); HEMATOCRIT 47 % (35-52); HEMOGLOBIN 16.1 G/DL (11.5-16.0); LYMPHOCYTES # (AUTO) 4.1 X 10^3 (1.0-4.0); LYMPHOCYTES % (AUTO) 37 % (12-44); MEAN CORPUSCULAR HEMOGLOBIN 29 PG (25-34); MEAN CORPUSCULAR HGB CONC 34 G/DL (32-36); MEAN CORPUSCULAR VOLUME 85 FL (80-99); MEAN PLATELET VOLUME 10.6 FL (7.4-10.4); MONOCYTES # (AUTO) 1.4 X 10^3 (0.0-1.0); MONOCYTES % (AUTO) 12 % (0-12); NEUTROPHILS # (AUTO) 5.4 X 10^3 (1.8-7.8); NEUTROPHILS % (AUTO) 48 % (42-75); PLATELET COUNT 378 10^3/uL (130-400); RED CELL DISTRIBUTION WIDTH 21.6 % (10.0-14.5); WHITE BLOOD COUNT 11.2 10^3/uL (4.3-11.0)
[2018-06-26 10:20] LABS: ALANINE AMINOTRANSFERASE 41 U/L (0-55); ALBUMIN 4.2 GM/DL (3.2-4.5); ALKALINE PHOSPHATASE 119 U/L (40-136); BILIRUBIN,TOTAL 0.4 MG/DL (0.1-1.0); BUN/CREATININE RATIO 20; CALCIUM 10.6 MG/DL (8.5-10.1); CARBON DIOXIDE 20 MMOL/L (21-32); CHLORIDE 109 MMOL/L (98-107); CREATININE SERUM 0.95 MG/DL (0.60-1.30); GFR ESTIMATED > 60; GLUCOSE 94 MG/DL (70-105); POTASSIUM 4.1 MMOL/L (3.6-5.0); SODIUM 142 MMOL/L (135-145); TOTAL PROTEIN 7.3 GM/DL (6.4-8.2)
[2018-09-25 10:26] LABS: BASOPHILS # (AUTO) 0.1 10^3/uL (0.0-0.1); BASOPHILS % (AUTO) 1 % (0-10); EOSINOPHILS # (AUTO) 0.2 10^3/uL (0.0-0.3); EOSINOPHILS % (AUTO) 2 % (0-10); HEMATOCRIT 44 % (35-52); HEMOGLOBIN 15.4 G/DL (11.5-16.0); LYMPHOCYTES # (AUTO) 3.7 X 10^3 (1.0-4.0); LYMPHOCYTES % (AUTO) 39 % (12-44); MEAN CORPUSCULAR HEMOGLOBIN 32 PG (25-34); MEAN CORPUSCULAR HGB CONC 35 G/DL (32-36); MEAN CORPUSCULAR VOLUME 91 FL (80-99); MONOCYTES # (AUTO) 1.1 X 10^3 (0.0-1.0); MONOCYTES % (AUTO) 12 % (0-12); NEUTROPHILS # (AUTO) 4.4 X 10^3 (1.8-7.8); NEUTROPHILS % (AUTO) 46 % (42-75); PLATELET COUNT 391 10^3/uL (130-400); RED CELL DISTRIBUTION WIDTH 13.2 % (10.0-14.5); WHITE BLOOD COUNT 9.6 10^3/uL (4.3-11.0)
[2018-09-25 10:43] LABS: ALBUMIN 4.2 GM/DL (3.2-4.5); BILIRUBIN,TOTAL 0.5 MG/DL (0.1-1.0); CALCIUM 10.1 MG/DL (8.5-10.1); CREATININE SERUM 1.05 MG/DL (0.60-1.30); POTASSIUM 3.6 MMOL/L (3.6-5.0); TOTAL PROTEIN 7.1 GM/DL (6.4-8.2)
== END 2018-09-24 | disposition home or self-care (01) ==
LOC: ONC 09:51
PROVIDERS: ATTEND Internal Medicine Hematology & Oncology
DX: D72.829 Elevated white blood cell count, unspecified (principal); D47.3 Essential (hemorrhagic) thrombocythemia; E61.1 Iron deficiency; I26.99 Other pulmonary embolism without acute cor pulmonale; F17.210 Nicotine dependence, cigarettes, uncomplicated; M79.7 Fibromyalgia; M06.9 Rheumatoid arthritis, unspecified; E78.5 Hyperlipidemia, unspecified; I25.10 Atherosclerotic heart disease of native coronary artery without angina pectoris; I12.9 Hypertensive chronic kidney disease with stage 1 through stage 4 chronic kidney disease, or unspecified chronic kidney disease; N18.9 Chronic kidney disease, unspecified; E11.22 Type 2 diabetes mellitus with diabetic chronic kidney disease; E11.65 Type 2 diabetes mellitus with hyperglycemia; F41.9 Anxiety disorder, unspecified; R23.2 Flushing; Z87.440 Personal history of urinary (tract) infections; Z79.899 Other long term (current) drug therapy; Z79.52 Long term (current) use of systemic steroids; Z79.82 Long term (current) use of aspirin
CPT/HCPCS: 36415; 80053; 82728; 83540; 85025; 99213

== ENCOUNTER → 2018-09-11 | Outpatient (CLI) | payer MEDICARE, MEDICAID ==
--- NOTE | 2018-09-11 20:29 | Diagnostic Imaging Report ---
INDICATION: Current smoker with [id number] history for low-dose CT screening. Correlation made with a formal angiographic CT study performed on 09/23/2017. FINDINGS: Few peripheral calcified pulmonary parenchymal granulomata are noted, stable chronic and benign. No noncalcified or suspicious pulmonary parenchymal nodule. Some chronic areas of subpleural scarring in the apices stable. There is some heterogeneous air trapping and features of centrilobular emphysema chronic. No bronchiectasis. No evidence for pneumonia. No effusion or pneumothorax. Some linear scarring or atelectasis in subpleural left lower lobe stable. No acute-appearing abnormality. There are coronary arterial atherosclerotic vascular calcifications and apparent left-sided stent. IMPRESSION: 1. Stable chronic changes of COPD, subpleural scarring, and benign granulomatous residua. 2. However no suspicious nodule. Lung rads category 2 - Benign appearance or behavior. Solid nodule(s): <6mm OR new <4mm. Continue annual screening with LDCT in 12 months. Dictated by: Dictated on workstation # [id number]
== END ==
LOC: RAD 12:07
PROVIDERS: ATTEND Pediatrics
DX: Z12.2 Encounter for screening for malignant neoplasm of respiratory organs (principal); J84.10 Pulmonary fibrosis, unspecified; J44.9 Chronic obstructive pulmonary disease, unspecified; F17.210 Nicotine dependence, cigarettes, uncomplicated; Z95.828 Presence of other vascular implants and grafts

== ENCOUNTER 2018-09-25 10:09 | Outpatient (RCR) | payer MEDICAID ==
[~2018-09-25 10:09] MED LIST changes: -D-ME118S7 PO; +PROM118S4 PO
[2018-09-25 10:26] LABS: BASOPHILS # (AUTO) 0.1 10^3/uL (0.0-0.1); BASOPHILS % (AUTO) 1 % (0-10); EOSINOPHILS # (AUTO) 0.2 10^3/uL (0.0-0.3); EOSINOPHILS % (AUTO) 2 % (0-10); HEMATOCRIT 44 % (35-52); HEMOGLOBIN 15.4 G/DL (11.5-16.0); LYMPHOCYTES # (AUTO) 3.7 X 10^3 (1.0-4.0); LYMPHOCYTES % (AUTO) 39 % (12-44); MEAN CORPUSCULAR HEMOGLOBIN 32 PG (25-34); MEAN CORPUSCULAR HGB CONC 35 G/DL (32-36); MEAN CORPUSCULAR VOLUME 91 FL (80-99); MONOCYTES # (AUTO) 1.1 X 10^3 (0.0-1.0); MONOCYTES % (AUTO) 12 % (0-12); NEUTROPHILS # (AUTO) 4.4 X 10^3 (1.8-7.8); NEUTROPHILS % (AUTO) 46 % (42-75); PLATELET COUNT 391 10^3/uL (130-400); RED CELL DISTRIBUTION WIDTH 13.2 % (10.0-14.5); WHITE BLOOD COUNT 9.6 10^3/uL (4.3-11.0)
[2018-09-25 10:43] LABS: ALBUMIN 4.2 GM/DL (3.2-4.5); BILIRUBIN,TOTAL 0.5 MG/DL (0.1-1.0); CALCIUM 10.1 MG/DL (8.5-10.1); CREATININE SERUM 1.05 MG/DL (0.60-1.30); POTASSIUM 3.6 MMOL/L (3.6-5.0); TOTAL PROTEIN 7.1 GM/DL (6.4-8.2)
== END 2018-12-24 | disposition home or self-care (01) ==
LOC: ONC 10:09
PROVIDERS: ATTEND Internal Medicine Hematology & Oncology
DX: D72.829 Elevated white blood cell count, unspecified (principal); D47.3 Essential (hemorrhagic) thrombocythemia; E61.1 Iron deficiency; I26.99 Other pulmonary embolism without acute cor pulmonale; F17.210 Nicotine dependence, cigarettes, uncomplicated; M79.7 Fibromyalgia; M06.9 Rheumatoid arthritis, unspecified; E78.5 Hyperlipidemia, unspecified; I25.10 Atherosclerotic heart disease of native coronary artery without angina pectoris; I12.9 Hypertensive chronic kidney disease with stage 1 through stage 4 chronic kidney disease, or unspecified chronic kidney disease; N18.9 Chronic kidney disease, unspecified; E11.22 Type 2 diabetes mellitus with diabetic chronic kidney disease; E11.65 Type 2 diabetes mellitus with hyperglycemia; F41.9 Anxiety disorder, unspecified; R23.2 Flushing; Z87.440 Personal history of urinary (tract) infections; Z79.899 Other long term (current) drug therapy; Z79.52 Long term (current) use of systemic steroids; Z79.82 Long term (current) use of aspirin
CPT/HCPCS: 36415; 80053; 82728; 83540; 85025; 99213

== ENCOUNTER → 2018-09-28 | Outpatient (CLI) | payer MEDICARE, MEDICAID ==
[~2018-09-28] MED LIST changes: +D-ME118S7 PO; -PROM118S4 PO
== END ==
LOC: CARD 11:07
PROVIDERS: ATTEND Physician Assistant
DX: I25.10 Atherosclerotic heart disease of native coronary artery without angina pectoris (principal); E11.9 Type 2 diabetes mellitus without complications; I10 Essential (primary) hypertension; R53.83 Other fatigue
CPT/HCPCS: 93306

== ENCOUNTER → 2018-11-25 | Outpatient (CLI) | payer MEDICARE, MEDICAID ==
[~2018-11-25] MED LIST changes: -D-ME118S7 PO; +PROM118S4 PO
--- NOTE | 2018-11-25 11:25 | Diagnostic Imaging Report ---
EXAMINATION: Magnetic resonance imaging of the right shoulder without contrast. DATE: November 25, 2018. COMPARISON: Right shoulder radiographs of January 08, 2010. HISTORY: 58-year-old female, right shoulder pain. Lifting injury 3 weeks ago. TECHNIQUE: Magnetic Resonance Imaging sequences were performed of the shoulder without contrast. FINDINGS: ROTATOR CUFF, LIGAMENTS, TENDONS, AND MUSCLES: The supraspinatus, infraspinatus, teres minor, and subscapularis tendons and muscles are intact. There is normal rotator cuff muscle bulk and signal. LONG HEAD OF BICEPS: The biceps labral attachment and long head of the biceps tendon are intact. The long head of the biceps tendon is normally positioned within the bicipital groove. GLENOHUMERAL JOINT: The humeral head is well positioned relative to the glenoid. The labrum is grossly intact. There is no identified paralabral cyst. The articular cartilage is grossly intact. There is no joint effusion. ACROMIOCLAVICULAR JOINT: The acromioclavicular joint is normally aligned. The coracoclavicular and coracoacromial ligaments are intact. There are minimal acromioclavicular degenerative changes without undersurface osteophyte. BONE: The bones all have normal configuration. The bone marrow signal is within normal limits. Specifically, negative for fracture, osteomyelitis, osteonecrosis, or marrow replacing process. BURSAE AND SOFT TISSUES: There is a small amount of fluid in the subacromial/subdeltoid bursa which is likely within normal limits for detection on MRI. IMPRESSION: 1. Intact rotator cuff. 2. Grossly intact labrum and unremarkable additional glenohumeral joint assessment. 3. Minimal acromioclavicular degenerative changes without undersurface osteophyte. 4. No acute fracture, bone contusion, or evidence of osteonecrosis. Dictated by: Dictated on workstation # [id number]
== END ==
LOC: RAD 08:32
PROVIDERS: ATTEND Orthopaedic Surgery
DX: S49.81XA Other specified injuries of right shoulder and upper arm, initial encounter (principal); X50.9XXA Other and unspecified overexertion or strenuous movements or postures, initial encounter
CPT/HCPCS: 73221

== ENCOUNTER 2019-01-01 10:23 | Outpatient (RCR) | payer MEDICAID ==
[2019-01-01 10:49] LABS: BASOPHILS # (AUTO) 0.1 10^3/uL (0.0-0.1); BASOPHILS % (AUTO) 0 % (0-10); EOSINOPHILS % (AUTO) 0 % (0-10); HEMATOCRIT 43 % (35-52); HEMOGLOBIN 14.7 G/DL (11.5-16.0); LYMPHOCYTES # (AUTO) 2.6 X 10^3 (1.0-4.0); LYMPHOCYTES % (AUTO) 23 % (12-44); MEAN CORPUSCULAR HEMOGLOBIN 32 PG (25-34); MEAN CORPUSCULAR HGB CONC 34 G/DL (32-36); MEAN CORPUSCULAR VOLUME 92 FL (80-99); MEAN PLATELET VOLUME 10.2 FL (7.4-10.4); MONOCYTES # (AUTO) 1.1 X 10^3 (0.0-1.0); MONOCYTES % (AUTO) 10 % (0-12); NEUTROPHILS # (AUTO) 7.6 X 10^3 (1.8-7.8); NEUTROPHILS % (AUTO) 67 % (42-75); PLATELET COUNT 381 10^3/uL (130-400); RED CELL DISTRIBUTION WIDTH 13.2 % (10.0-14.5); WHITE BLOOD COUNT 11.4 10^3/uL (4.3-11.0)
[2019-01-01 11:04] LABS: ALANINE AMINOTRANSFERASE 24 U/L (0-55); ALKALINE PHOSPHATASE 126 U/L (40-136); BILIRUBIN,TOTAL 0.3 MG/DL (0.1-1.0); BUN/CREATININE RATIO 22; CALCIUM 9.6 MG/DL (8.5-10.1); CARBON DIOXIDE 16 MMOL/L (21-32); CHLORIDE 112 MMOL/L (98-107); CREATININE SERUM 0.85 MG/DL (0.60-1.30); GFR ESTIMATED > 60; GLUCOSE 103 MG/DL (70-105); POTASSIUM 4.2 MMOL/L (3.6-5.0); SODIUM 139 MMOL/L (135-145); TOTAL PROTEIN 7.1 GM/DL (6.4-8.2)
== END 2019-04-01 | disposition home or self-care (01) ==
LOC: ONC 10:23
PROVIDERS: ATTEND Internal Medicine Hematology & Oncology
DX: D72.829 Elevated white blood cell count, unspecified (principal); D47.3 Essential (hemorrhagic) thrombocythemia; E61.1 Iron deficiency; I26.99 Other pulmonary embolism without acute cor pulmonale; F17.210 Nicotine dependence, cigarettes, uncomplicated; M79.7 Fibromyalgia; M06.9 Rheumatoid arthritis, unspecified; E78.5 Hyperlipidemia, unspecified; I25.10 Atherosclerotic heart disease of native coronary artery without angina pectoris; I12.9 Hypertensive chronic kidney disease with stage 1 through stage 4 chronic kidney disease, or unspecified chronic kidney disease; N18.9 Chronic kidney disease, unspecified; E11.22 Type 2 diabetes mellitus with diabetic chronic kidney disease; E11.65 Type 2 diabetes mellitus with hyperglycemia; F41.9 Anxiety disorder, unspecified; R23.2 Flushing; Z87.440 Personal history of urinary (tract) infections; Z79.899 Other long term (current) drug therapy; Z79.52 Long term (current) use of systemic steroids; Z79.82 Long term (current) use of aspirin
CPT/HCPCS: 36415; 80053; 82728; 83540; 85025; 99213

== ENCOUNTER → 2019-02-02 | Outpatient (CLI) | payer MEDICARE, MEDICAID ==
[2019-02-02 11:10] LABS: ALBUMIN 4.4 GM/DL (3.2-4.5); BILIRUBIN,TOTAL 0.5 MG/DL (0.1-1.0); CALCIUM 10.3 MG/DL (8.5-10.1); CREATININE SERUM 0.97 MG/DL (0.60-1.30); POTASSIUM 4.5 MMOL/L (3.6-5.0); TOTAL PROTEIN 7.8 GM/DL (6.4-8.2)
== END ==
LOC: LAB 09:10
PROVIDERS: ATTEND Physician Assistant
DX: I25.10 Atherosclerotic heart disease of native coronary artery without angina pectoris (principal); E78.2 Mixed hyperlipidemia; I10 Essential (primary) hypertension
CPT/HCPCS: 36415; 80053; 80061

== ENCOUNTER 2019-07-13 13:55 | Emergency (ER) | payer MEDICARE, MEDICAID ==
[~2019-07-13] VITALS: Ht 157 cm; Wt 60.0 kg
[~2019-07-13 13:55] MED LIST changes: -HYDR-3812 PO; +ONDA-105 PO; -ONDA4TAB10 PO; -SACU1TAB PO; +SACU1TAB2 PO; -TAMS0.4C98 PO; +TMSL.4C PO
--- NOTE | 2019-07-13 14:14 | ED Dyspnea ---
General Stated Complaint: SOA Source of Information: Patient, EMS Exam Limitations: No Limitations History of Present Illness Date Seen by Provider: Jul 13, 2019 Time Seen by Provider: 14:00 Initial Comments To ER by EMS with 2 weeks of persistent cough, intermittent fevers up to 101 measured at home (took tylenol a few hours ago but is afebrile now), rhinorrhea. Was given rx for steroid and antibiotic 2 weeks ago and she completed those. The steroid helped a bit but overall no significant improvement. Has COPD/asthma, wears O2 at home, though was 95% room air. On Xarelto for history of DVT. Has also had a headache and nausea for several days as well. ALso c/o sharp left sided chest pain worse with breathing and movement. Timing/Duration: Other (2 weeks) Severity: Moderate Prior Episodes/Possible Cause: Occasional Episodes Associated Symptoms: Cough, Wheezing Allergies and Home Medications Allergies Coded Allergies: sulfamethoxazole (Verified Allergy, Intermediate, VOMITTING/MIGRAINE, 01/26/18) trimethoprim (Verified Allergy, Intermediate, VOMITTING/MIGRAINE, 01/26/18) pentazocine (Unverified Adverse Reaction, Mild, N/V, HEAD ACHE, 01/26/18) Home Medications Acetaminophen 500 Mg Tablet, 1,000 MG PO Q6H PRN for PAIN-MILD, (Reported) Albuterol Sulfate 18 Gm Hfa.aer.ad, 2 PUFF INH Q4H PRN for SHORTNESS OF BREATH, (Reported) Albuterol Sulfate 2.5 Mg/0.5 Ml Vial.neb, 2.5 MG IH Q4H PRN for SHORTNESS OF BREATH, (Reported) Aspirin 81 Mg Tablet.dr, 81 MG PO HS, (Reported) Atorvastatin Calcium 20 Mg Tablet, 20 MG PO HS, (Reported) Cyclobenzaprine HCl 10 Mg Tablet, 10 MG PO TID PRN for MUSCLE SPASMS, (Reported) Cyclosporine 1 Each Droperette, 1 DROP OU BID, (Reported) Diclofenac Sodium 100 Gm Gel..gram., 4 GM TP QID PRN for arthritis pain, (Reported) Dulaglutide 0.75 Mg/0.5 Ml Pen.injctr, 0.75 MG SQ WEEK, (Reported) Fenofibrate,Micronized 134 Mg Capsule, 134 MG PO HS, (Reported) Gabapentin 300 Mg Capsule, 300 MG PO HS, (Reported) Ibuprofen 800 Mg Tablet, 800 MG PO Q8H PRN for PAIN-MILD, (Reported) Insulin Aspart 300 Units/3 Ml Solution, 18 UNITS SQ TIDAC, (Reported) Insulin Glargine,Hum.rec.anlog 100 Unit/1 Ml Insuln.pen, 35 UNIT SQ HS, (Reported) Lansoprazole 30 Mg Capsule.dr, 30 MG PO DAILY, (Reported) Metoprolol Tartrate 25 Mg Tablet, 25 MG PO BID, (Reported) Nitroglycerin 0.4 Mg Tab.subl, 0.4 MG SL UD PRN for CHEST PAIN, (Reported) Ondansetron HCl 4 Mg Tablet, 4 MG PO Q6H PRN for NAUSEA/VOMITING-1ST LINE, (Reported) Prednisone 5 Mg Tablet, 5 MG PO DAILY, (Reported) Rivaroxaban 15 Mg Tablet, 15 MG PO HS, (Reported) Sacubitril/Valsartan 1 Each Tablet, 1 TAB PO BID, (Reported) Topiramate 50 Mg Tablet, 50 MG PO BID, (Reported) Venlafaxine HCl 150 Mg Cap.er.24h, 150 MG PO HS, (Reported) Patient Home Medication List Home Medication List Reviewed: Yes Review of Systems Review of Systems Constitutional: see HPI, chills, fever EENTM: nose congestion Respiratory: see HPI, cough, short of breath Cardiovascular: no symptoms reported Genitourinary: no symptoms reported Musculoskeletal: no symptoms reported Skin: no symptoms reported Psychiatric/Neurological: No Symptoms Reported Endocrine: No Symptoms Reported Hematologic/Lymphatic: No Symptoms Reported Past Sxrypic-Fyyezn-Eacduu Hx Patient Social History Type Used: Cigarettes Former Smoker, Quit: May 01, 2017 2nd Hand Smoke Exposure: No Recent Hopitalizations: No Immunizations Up To Date Tetanus Booster (TDap): More than 5yrs PED Vaccines UTD: No Date of Pneumonia Vaccine: May 01, 2015 Date of Influenza Vaccine: Mar 02, 2018 Seasonal Allergies Seasonal Allergies: Yes Past Medical History Surgeries: Yes Abdominal, Appendectomy, Bowel Surgery, Breast, Cardiac, Coronary Stent, Eye Surgery, Gallbladder, Hysterectomy, Oophorectomy Respiratory: Yes (RESPIRATORY FAILURE ON VENT X 1 ) Asthma, Pneumonia, Chronic Bronchitis, Pulmonary Embolism, COPD Currently Using CPAP: No Currently Using BIPAP: No Cardiac: Yes (STENT PLACED OCTOBER 2014 AFTER RI) Coronary Artery Disease, Heart Attack, High Cholesterol, Hypertension Neurological: Yes Seizure Disorder 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 Disorders: Yes (CERVICAL DYSPLASIA--S/P HYST/BSO) 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 Sexually Transmitted Disease: No HIV/AIDS: No Genitourinary: Yes Kidney Stones, Renal Failure Gastrointestinal: Yes Gastroesophageal Reflux, Diverticulosis, Irritable Bowel Musculoskeletal: Yes Arthritis, Fibromyalgia, Rheumatoid Arthritis Endocrine: No HEENT: Yes Glaucoma Loss of Vision: Denies Hearing Impairment: Denies Cancer: No Psychosocial: Yes Anxiety, Bipolar, Depression Integumentary: Yes (SHINGLES) Blood Disorders: No Adverse Reaction/Blood Tranf: No Family Medical History CANCER 19 MOTHER (PATIENT DOES NOT KNOW LOCATION) Cancer, Other Conditions/Hx Physical Exam Vital Signs Vital Signs - First Documented 07/13/19 13:58 Temp 36.9 Pulse 105 Resp 18 B/P (MAP) 122/38 (66) Pulse Ox 95 Capillary Refill : Height, Weight, BMI Height: 5'2.00" Weight: 164lbs. 0.0oz. [id number]; 30.0 BMI Method:Stated General Appearance: No Apparent Distress, WD/WN, Other (no distress, speaks in full sentences) HEENT: PERRL/EOMI, TMs Normal Neck: Full Range of Motion, Normal Inspection Respiratory: Normal Breath Sounds, No Accessory Muscle Use, No Respiratory Distress; No Wheezing Cardiovascular: Regular Rate, Rhythm, Normal Peripheral Pulses, Tachycardia (tachy at 100 sinus) Gastrointestinal: Non Tender, Soft Extremity: Normal Capillary Refill, Normal Inspection Neurologic/Psychiatric: Alert, Oriented x3 Skin: Normal Color, Warm/Dry Focused Exam Lactate Level 07/13/19 14:07: Lactic Acid Level 1.52 Lactic Acid Level Laboratory Tests Test 07/13/19 14:07 Lactic Acid Level 1.52 MMOL/L (0.50-2.00) Procedures/Interventions Date of ETT Placement: Feb 11, 2016 Time of ETT Placement: 1341 Progress/Results/Core Measures Results/Orders Lab Results Laboratory Tests Test 07/13/19 14:07 07/13/19 14:21 Range/Units White Blood Count 15.2 H 4.3-11.0 10^3/uL Red Blood Count 5.07 4.35-5.85 10^6/uL Hemoglobin 16.2 H 11.5-16.0 G/DL Hematocrit 47 35-52 % Mean Corpuscular Volume 92 80-99 FL Mean Corpuscular Hemoglobin 32 25-34 PG Mean Corpuscular Hemoglobin Concent 35 32-36 G/DL Red Cell Distribution Width 13.1 10.0-14.5 % Platelet Count 427 H 130-400 10^3/uL Mean Platelet Volume 10.4 7.4-10.4 FL Neutrophils (%) (Auto) 51 42-75 % Lymphocytes (%) (Auto) 36 12-44 % Monocytes (%) (Auto) 11 0-12 % Eosinophils (%) (Auto) 2 0-10 % Basophils (%) (Auto) 1 0-10 % Neutrophils # (Auto) 7.7 1.8-7.8 X 10^3 Lymphocytes # (Auto) 5.5 H 1.0-4.0 X 10^3 Monocytes # (Auto) 1.7 H 0.0-1.0 X 10^3 Eosinophils # (Auto) 0.2 0.0-0.3 10^3/uL Basophils # (Auto) 0.1 0.0-0.1 10^3/uL Prothrombin Time 13.4 12.2-14.7 SEC INR Comment 1.0 0.8-1.4 Activated Partial Thromboplast Time 32 24-35 SEC D-Dimer 0.34 0.00-0.49 UG/ML Sodium Level 140 135-145 MMOL/L Potassium Level 3.8 3.6-5.0 MMOL/L Chloride Level 108 H 98-107 MMOL/L Carbon Dioxide Level 20 L 21-32 MMOL/L Anion Gap 12 5-14 MMOL/L Blood Urea Nitrogen 22 H 7-18 MG/DL Creatinine 0.83 0.60-1.30 MG/DL Estimat Glomerular Filtration Rate > 60 BUN/Creatinine Ratio 27 Glucose Level 63 L 70-105 MG/DL Lactic Acid Level 1.52 0.50-2.00 MMOL/L Calcium Level 10.6 H 8.5-10.1 MG/DL Corrected Calcium 10.4 H 8.5-10.1 MG/DL Total Bilirubin 0.3 0.1-1.0 MG/DL Aspartate Amino Transf (AST/SGOT) 23 5-34 U/L Alanine Aminotransferase (ALT/SGPT) 21 0-55 U/L Alkaline Phosphatase 115 40-136 U/L Lactate Dehydrogenase 227 H 125-220 U/L Creatine Kinase MB 1.1 <6.6 NG/ML Troponin I < 0.028 <0.028 NG/ML C-Reactive Protein High Sensitivity 0.25 0.00-0.50 MG/DL B-Type Natriuretic Peptide 13.1 <100.0 PG/ML Total Protein 7.7 6.4-8.2 GM/DL Albumin 4.3 3.2-4.5 GM/DL Glucometer 76 70-110 MG/DL My Orders Orders - YONAS OWUSU APRN Vital Signs: Every 4 Hours (Or (07/13/19 13:57) Monitor-Rhythm Ecg Trace Only (07/13/19 13:57) Ed Iv/Invasive Line Start (07/13/19 13:57) Cbc With Automated Diff (07/13/19 13:57) Comprehensive Metabolic Panel (07/13/19 13:57) Ferritin (07/13/19 13:57) LDH (07/13/19 13:57) Hs C Reactive Protein (07/13/19 13:57) Troponin I (07/13/19 13:57) Creatine Kinase Mb (07/13/19 13:57) Lactic Acid Analyzer (07/13/19 13:57) Protime With Inr (07/13/19 13:57) Partial Thromboplastin Time (07/13/19 13:57) Fibrin Degradation Products (07/13/19 13:57) Ekg Tracing (07/13/19 13:57) Chest 1 View, Ap/Pa Only (07/13/19 13:57) Ns Iv 1000 Ml (Sodium Chloride 0.9%) (07/13/19 14:15) Ketorolac Injection (Toradol Injection) (07/13/19 14:15) Diphenhydramine Injection (Benadryl Inje (07/13/19 14:15) Prochlorperazine Injection (Compazine In (07/13/19 14:15) BNP (07/13/19 14:16) Coronavirus Sars-Cov-2 So 2018 (07/13/19 14:23) Manual Differential (07/13/19 14:07) Medications Given in ED Current Medications Medications Dose Ordered Sig/Jamie Route Start Time Stop Time Status Last Admin Dose Admin Diphenhydramine HCl 25 mg ONCE ONCE IVP 07/13/19 14:15 07/13/19 14:16 DC 07/13/19 14:28 25 MG Ketorolac Tromethamine 15 mg ONCE ONCE IVP 07/13/19 14:15 07/13/19 14:16 DC 07/13/19 14:28 15 MG Prochlorperazine Edisylate 5 mg ONCE ONCE IV 07/13/19 14:15 07/13/19 14:16 DC 07/13/19 14:27 5 MG Vital Signs/I&O 07/13/19 13:58 Temp 36.9 Pulse 105 Resp 18 B/P (MAP) 122/38 (66) Pulse Ox 95 Departure Communication (Admissions) her wbc, though high, is actually the lowest shes had in a few years Impression Primary Impression: COPD (chronic obstructive pulmonary disease) Qualified Codes: J44.1 - Chronic obstructive pulmonary disease with (acute) exacerbation Disposition: HOME, SELF-CARE Condition: Stable Departure-Patient Inst. Decision time for Depature: 15:03 Referrals: DIXIE ZELAYA MD (PCP/Family) Primary Care Physician Patient Instructions: Exacerbation of COPD Add. Discharge Instructions: 1. Restart the steroids for a few days 2. antibiotics as directed 3. Follow-up with her doctor next week Scripts Prednisone (Prednisone) 20 Mg Tab 40 MG PO DAILY, #6 TAB 0 Refills Prov: YONAS OWUSU APRN 07/13/19 Doxycycline Hyclate (Doxycycline Hyclate) 100 Mg Tablet 100 MG PO BID, #20 TAB 0 Refills Prov: YONAS OWUSU APRN 07/13/19 YONAS OWUSU APRN Jul 13, 2019 14:13
[2019-07-13] MEDS ORDERED: NS IV 1000 ML 1,000 ML IV SCH (14:15)
[2019-07-13] MEDS ORDERED: diphenhydrAMINE 50 MG/ML INJ (BENADRYL) IVP ONE (14:15)
[2019-07-13] MEDS ORDERED: KETOROLAC 30 MG/ML VIAL IVP ONE (14:15)
[2019-07-13] MEDS ORDERED: PROCHLORPERAZINE 10 MG/2ML INJ (COMPAZINE) IV ONE (14:15)
[2019-07-13 14:26] LABS: BASOPHILS # (AUTO) 0.1 10^3/uL (0.0-0.1); BASOPHILS % (AUTO) 1 % (0-10); EOSINOPHILS # (AUTO) 0.2 10^3/uL (0.0-0.3); EOSINOPHILS % (AUTO) 2 % (0-10); HEMATOCRIT 47 % (35-52); HEMOGLOBIN 16.2 G/DL (11.5-16.0); LYMPHOCYTES # (AUTO) 5.5 X 10^3 (1.0-4.0); LYMPHOCYTES % (AUTO) 36 % (12-44); MEAN CORPUSCULAR HEMOGLOBIN 32 PG (25-34); MEAN CORPUSCULAR HGB CONC 35 G/DL (32-36); MEAN CORPUSCULAR VOLUME 92 FL (80-99); MEAN PLATELET VOLUME 10.4 FL (7.4-10.4); MONOCYTES # (AUTO) 1.7 X 10^3 (0.0-1.0); MONOCYTES % (AUTO) 11 % (0-12); NEUTROPHILS # (AUTO) 7.7 X 10^3 (1.8-7.8); NEUTROPHILS % (AUTO) 51 % (42-75); PLATELET COUNT 427 10^3/uL (130-400); RED CELL DISTRIBUTION WIDTH 13.1 % (10.0-14.5); WHITE BLOOD COUNT 15.2 10^3/uL (4.3-11.0)
[2019-07-13 14:38] LABS: ALBUMIN 4.3 GM/DL (3.2-4.5); CHLORIDE 108 MMOL/L (98-107); POTASSIUM 3.8 MMOL/L (3.6-5.0); SODIUM 140 MMOL/L (135-145)
[2019-07-13 14:39] LABS: CALCIUM 10.6 MG/DL (8.5-10.1)
[2019-07-13 14:40] LABS: FIBRIN DEGRADATION PRODUCTS 0.34 UG/ML (0.00-0.49); GLUCOSE 63 MG/DL (70-105); PROTHROMBIN TIME PATIENT 13.4 SEC (12.2-14.7)
[2019-07-13 14:41] LABS: TOTAL PROTEIN 7.7 GM/DL (6.4-8.2)
[2019-07-13 14:42] LABS: BILIRUBIN,TOTAL 0.3 MG/DL (0.1-1.0); CARBON DIOXIDE 20 MMOL/L (21-32)
[2019-07-13 14:44] LABS: ALKALINE PHOSPHATASE 115 U/L (40-136); CREATININE SERUM 0.83 MG/DL (0.60-1.30); GFR ESTIMATED > 60
[2019-07-13 14:45] LABS: BUN/CREATININE RATIO 27
[2019-07-13 14:47] LABS: ALANINE AMINOTRANSFERASE 21 U/L (0-55)
[2019-07-13 14:53] LABS: CREATINE KINASE MB 1.1 NG/ML (<6.6)
--- NOTE | 2019-07-13 15:01 | Diagnostic Imaging Report ---
EXAM: CHEST 1 VIEW, AP/PA ONLY. INDICATION: Cough. COMPARISON: Chest radiograph 09/23/2017. FINDINGS: Normal heart size and central pulmonary vascularity. No focal pulmonary opacity, pleural effusion, or pneumothorax. Chronic posterior left upper rib fractures. No acute osseous findings. IMPRESSION: No acute cardiopulmonary findings. Dictated by: Dictated on workstation # [id number]
[2019-07-13 15:04] LABS: BASOPHILS % (MANUAL) 1 %; LYMPHOCYTES % (MANUAL) 42 %; MONOCYTES % (MANUAL) 4 %; NEUTROPHILS % (MANUAL) 52 %; RBC MORPH NORMAL
[2019-07-13] MEDS ORDERED: DOXY100T2 PO (15:05)
[2019-07-13] MEDS ORDERED: PRD20T PO (15:05)
[2019-07-13 15:14] VITALS: BP 119/69
--- NOTE | 2019-07-13 15:15 | NUR ---
V/S 1300 B/P 122/38 HR 102 1306 113/91 101 1315 120/62 104 1330 122/60 101 1345 120/65 90 1400 119/69 92 1415 DISCHARGE
== END 2019-07-13 16:44 | disposition home or self-care (01) ==
LOC: EDUNIT# 13:55 → ER 13:56
DX: J44.1 Chronic obstructive pulmonary disease with (acute) exacerbation (principal); Z86.718 Personal history of other venous thrombosis and embolism; Z79.01 Long term (current) use of anticoagulants; I25.10 Atherosclerotic heart disease of native coronary artery without angina pectoris; Z95.5 Presence of coronary angioplasty implant and graft; E78.00 Pure hypercholesterolemia, unspecified; I10 Essential (primary) hypertension; G40.909 Epilepsy, unspecified, not intractable, without status epilepticus; K21.9 Gastro-esophageal reflux disease without esophagitis; M19.91 Primary osteoarthritis, unspecified site; M79.7 Fibromyalgia; M06.9 Rheumatoid arthritis, unspecified; F41.9 Anxiety disorder, unspecified; F31.9 Bipolar disorder, unspecified
CPT/HCPCS: 36415; 71045; 80053; 82553; 82728; 82962; 83605; 83615; 83880; 84484; 85007; 85027; 85379; 85610; 85730; 86141; 87635; 93041

== ENCOUNTER → 2019-08-18 | Outpatient (CLI) | payer MEDICAID ==
[~2019-08-18] MED LIST changes: +DOXY100T2 PO; -PROM118S4 PO; +PROM118S5 PO
[2019-08-18 08:13] LABS: BASOPHILS # (AUTO) 0.1 10^3/uL (0.0-0.1); BASOPHILS % (AUTO) 1 % (0-10); EOSINOPHILS # (AUTO) 0.2 10^3/uL (0.0-0.3); EOSINOPHILS % (AUTO) 2 % (0-10); HEMATOCRIT 44 % (35-52); HEMOGLOBIN 15.4 G/DL (11.5-16.0); LYMPHOCYTES # (AUTO) 4.5 X 10^3 (1.0-4.0); LYMPHOCYTES % (AUTO) 37 % (12-44); MEAN CORPUSCULAR HEMOGLOBIN 32 PG (25-34); MEAN CORPUSCULAR HGB CONC 35 G/DL (32-36); MEAN CORPUSCULAR VOLUME 93 FL (80-99); MEAN PLATELET VOLUME 10.2 FL (7.4-10.4); MONOCYTES # (AUTO) 1.3 X 10^3 (0.0-1.0); MONOCYTES % (AUTO) 11 % (0-12); NEUTROPHILS # (AUTO) 6.1 X 10^3 (1.8-7.8); NEUTROPHILS % (AUTO) 50 % (42-75); PLATELET COUNT 401 10^3/uL (130-400); RED CELL DISTRIBUTION WIDTH 12.6 % (10.0-14.5); WHITE BLOOD COUNT 12.2 10^3/uL (4.3-11.0)
[2019-08-18 08:36] LABS: ALBUMIN 3.9 GM/DL (3.2-4.5); BILIRUBIN,TOTAL 0.3 MG/DL (0.1-1.0); CALCIUM 9.8 MG/DL (8.5-10.1); CREATININE SERUM 1.06 MG/DL (0.60-1.30); POTASSIUM 4.3 MMOL/L (3.6-5.0)
== END ==
LOC: EDSTATUS 08-02 09:45 → ONC 07:48
PROVIDERS: ATTEND Internal Medicine Hematology & Oncology
DX: D72.829 Elevated white blood cell count, unspecified (principal); D47.3 Essential (hemorrhagic) thrombocythemia; E61.1 Iron deficiency; I26.99 Other pulmonary embolism without acute cor pulmonale; F17.210 Nicotine dependence, cigarettes, uncomplicated; M79.7 Fibromyalgia; M06.9 Rheumatoid arthritis, unspecified; E78.5 Hyperlipidemia, unspecified; I25.10 Atherosclerotic heart disease of native coronary artery without angina pectoris; I12.9 Hypertensive chronic kidney disease with stage 1 through stage 4 chronic kidney disease, or unspecified chronic kidney disease; N18.9 Chronic kidney disease, unspecified; E11.22 Type 2 diabetes mellitus with diabetic chronic kidney disease; E11.65 Type 2 diabetes mellitus with hyperglycemia; F41.9 Anxiety disorder, unspecified; R23.2 Flushing; Z87.440 Personal history of urinary (tract) infections; Z79.899 Other long term (current) drug therapy; Z79.52 Long term (current) use of systemic steroids; Z79.82 Long term (current) use of aspirin
CPT/HCPCS: 80053; 82728; 83540; 85025; 99213

== ENCOUNTER → 2019-09-30 | Outpatient (CLI) | payer MEDICARE, MEDICAID ==
--- NOTE | 2019-09-30 13:23 | Diagnostic Imaging Report ---
CT Lung Screening INDICATION: History of tobacco use with a 40 pack year history. Smokes 1 pack every other day. TECHNIQUE: Noncontrast, low-dose CT imaging performed according to lung cancer screening protocol. Auto Exposure Controls were utilized during the CT exam to meet ALARA standards for radiation dose reduction. COMPARISON: 09/11/2018 FINDINGS: HEART/MEDIASTINUM: Heart size normal. Stent or dense calcification proximal circumflex artery with additional scattered mild coronary artery calcification. No pericardial effusion. Thoracic aortic contour unremarkable. Stable mildly prominent right peribronchial lymph node. Likely small secretions dependently right main and lower lobe bronchus. LUNGS/MEASURED PULMONARY NODULES: Continued areas of chronic atelectasis or scarring about both lung nam particularly at the bases. There are again innumerable calcified granulomas throughout both lungs. This does limit and obscure assessment for potential small nodules. Definitive new, concerning OTHER: Small hiatal hernia. Mildly accentuated thoracic kyphosis. There is some diffuse thin bridging osteophytes throughout the thoracic spine. IMPRESSION: 1. Stable screening assessment of the chest. No new or concerning pulmonary mass. Innumerable calcified granuloma is are present. LUNG-RADS CATEGORY: 2 LUNG SCREENING MANAGEMENT/RECOMMENDATIONS: Continued annual screening with low dose CT in 12 months. Notes: Lung rads category 1 or 2 does not mean that an individual does not have lung cancer or other active disease process, but rather nothing is identified to meet criteria for current lung pathology. Therefore, continued annual lung cancer screening should be performed. Please note that this is a low dose CT examination, intended for lung cancer screening of high risk patients. As a technical result, the examination is limited in diagnostic quality compared to a conventional CT examination of the chest. Dictated by: Dictated on workstation # [id number]
== END ==
LOC: RAD 12:08
PROVIDERS: ATTEND Nurse Practitioner Family
DX: Z12.2 Encounter for screening for malignant neoplasm of respiratory organs (principal); F17.200 Nicotine dependence, unspecified, uncomplicated

== ENCOUNTER → 2019-10-26 | Outpatient (CLI) | payer MEDICARE, MEDICAID ==
--- NOTE | 2019-10-27 10:00 | Diagnostic Imaging Report ---
EXAMINATION: Digital mammogram bilateral screening with CAD. INDICATION: Screening. COMPARISON: This study was compared to the prior exams of 12/05/2017 and 11/21/2014. PERSONAL HISTORY: At this time, there are no current complaints. FINDINGS: The breasts are predominantly fatty. When compared to the prior study, there has been no significant change. There is no primary or secondary sign of malignancy noted. IMPRESSION: 1. There is no evidence for malignancy. 2. The patient should have her annual bilateral screening mammogram on schedule in September 2020. ACR BI-RADS Category 1: Negative. Result letter will be mailed to the patient. Note: At least 10% of breast cancer is not imaged by mammography. Dictated by: Dictated on workstation # [id number]
== END ==
LOC: RAD 09:45
PROVIDERS: ATTEND Pediatrics
DX: Z12.31 Encounter for screening mammogram for malignant neoplasm of breast (principal)
CPT/HCPCS: 77063; 77067

== ENCOUNTER → 2019-11-23 | Outpatient (CLI) | payer MEDICARE, MEDICAID ==
[2019-11-23 10:21] LABS: HEMOGLOBIN 15.4 G/DL (11.5-16.0); MEAN PLATELET VOLUME 10.1 FL (7.4-10.4); RED CELL DISTRIBUTION WIDTH 12.9 % (10.0-14.5); WHITE BLOOD COUNT 13.1 10^3/uL (4.3-11.0)
== END ==
LOC: LAB 10:08
PROVIDERS: ATTEND Surgery
DX: R10.30 Lower abdominal pain, unspecified (principal)
CPT/HCPCS: 36415; 85027

== ENCOUNTER → 2019-12-07 | Outpatient (CLI) | payer MEDICARE, MEDICAID ==
[~2019-12-07] MED LIST changes: +ASPI-1238 PO; -ASPI-983 PO; +FLUT1BLS IH
== END ==
LOC: CARD 10:44
PROVIDERS: ATTEND Internal Medicine Cardiovascular Disease
DX: J44.9 Chronic obstructive pulmonary disease, unspecified (principal); I25.10 Atherosclerotic heart disease of native coronary artery without angina pectoris; I11.9 Hypertensive heart disease without heart failure; E78.2 Mixed hyperlipidemia; Z20.828 Contact with and (suspected) exposure to other viral communicable diseases
CPT/HCPCS: 93306

== ENCOUNTER → 2019-12-08 | Outpatient (CLI) | payer MEDICARE, MEDICAID ==
[~2019-12-08] VITALS: Ht 158 cm; Wt 71.0 kg
[~2019-12-08] MED LIST changes: +CATHETER FLUSH 10 ML SYR IV PRN; +REGADENOSON 0.4 MG/5 ML SYR (LEXISCAN) IV ONE
[2019-12-08 13:06] VITALS: BP 105/55
--- NOTE | 2019-12-08 15:13 | Cardiology Stress Test Report ---
Stress Test Report Date of Procedure/Referring: Date of Procedure: Dec 08, 2019 PCP Akbar Dobbins MD Admitting Physician Twyla Calix MD Indications: CAD Baseline Heart Rate: 78 Baseline Blood Pressure: Blood Pressure Systolic: 105 Blood Pressure Diastolic: 55 Baseline Vitals Vital Signs Date Time Temp Pulse Resp B/P (MAP) Pulse Ox O2 Delivery O2 Flow Rate FiO2 12/08/19 13:06 83 17 105/55 (72) 97 Room Air Baseline EKG: Baseline EKG: normal sinus rhythm Summary After explaining the procedure to the patient, she signed a consent and then brought to the stress nuclear laboratory. Patient received 0.4 mg Lexiscan for stress test, ECG, heart rate and blood pressure were monitored continuously. Resting and stress dose of radio tracer were injected, imaging was acquired and reviewed in short axis, horizontal long axis and vertical long axis views. TID: 1.19 SSS: 25 SDS: 3 EF: 50 1. Patient tolerated Lexiscan well 2. Extracardiac attenuation with fixed defect involving the whole inferior wall inferoapical and true apex, no significant reversibility was noted, no significant ischemia was noted 3. Normal left ventricular size with preserved contractility, EF 50 percent AKBRA DOBBINS MD Dec 08, 2019 15:13
== END ==
LOC: CARD 11:22
PROVIDERS: ATTEND Internal Medicine Cardiovascular Disease
DX: J44.9 Chronic obstructive pulmonary disease, unspecified (principal); I25.10 Atherosclerotic heart disease of native coronary artery without angina pectoris; I10 Essential (primary) hypertension; E78.2 Mixed hyperlipidemia; Z20.828 Contact with and (suspected) exposure to other viral communicable diseases
CPT/HCPCS: 78452; 93017

== ENCOUNTER 2019-12-31 05:35 | Outpatient (RCR) | payer MEDICARE, MEDICAID ==
[~2019-12-31] VITALS: Ht 157.5 cm; Wt 70.5 kg
[~2019-12-31 05:35] MED LIST changes: +ALPR.25T PO; -CATHETER FLUSH 10 ML SYR IV PRN; -ENAL2.5T PO; +ENLP2.5T PO; -PANT40TA3 PO; +PANT40TA52 PO; -REGADENOSON 0.4 MG/5 ML SYR (LEXISCAN) IV ONE
== END 2019-12-31 08:53 | disposition home or self-care (01) ==
LOC: PREOP 05:35
PROVIDERS: ATTEND Surgery
DX: Z01.818 Encounter for other preprocedural examination (principal); Z01.812 Encounter for preprocedural laboratory examination; R10.13 Epigastric pain; Z20.828 Contact with and (suspected) exposure to other viral communicable diseases
CPT/HCPCS: 87635

== ENCOUNTER 2020-02-04 05:35 | Outpatient (RCR) | payer MEDICARE, MEDICAID ==
[~2020-02-04] VITALS: Ht 157.5 cm; Wt 165.1 kg
== END 2020-02-04 11:56 | disposition home or self-care (01) ==
LOC: PREOP 05:35
PROVIDERS: ATTEND Surgery
DX: Z01.812 Encounter for preprocedural laboratory examination (principal); Z20.828 Contact with and (suspected) exposure to other viral communicable diseases
CPT/HCPCS: 87635

== ENCOUNTER 2020-03-15 16:44 | Emergency (ER) | payer MEDICARE, MEDICAID ==
[~2020-03-15] VITALS: Ht 157 cm; Wt 68.0 kg
[~2020-03-15 16:44] MED LIST changes: -CLIN300C11 PO; +CLIN300C12 PO
[2020-03-15 17:10] LABS: BASOPHILS # (AUTO) 0.1 10^3/uL (0.0-0.1); BASOPHILS % (AUTO) 1 % (0-10); EOSINOPHILS # (AUTO) 0.3 10^3/uL (0.0-0.3); EOSINOPHILS % (AUTO) 3 % (0-10); HEMATOCRIT 44 % (35-52); HEMOGLOBIN 14.9 g/dL (11.5-16.0); LYMPHOCYTES # (AUTO) 4.5 10^3/uL (1.0-4.0); LYMPHOCYTES % (AUTO) 37 % (12-44); MEAN CORPUSCULAR HEMOGLOBIN 32 pg (25-34); MEAN CORPUSCULAR HGB CONC 34 g/dL (32-36); MEAN CORPUSCULAR VOLUME 94 fL (80-99); MEAN PLATELET VOLUME 10.4 fL (9.0-12.2); MONOCYTES # (AUTO) 1.2 10^3/uL (0.0-1.0); MONOCYTES % (AUTO) 10 % (0-12); NEUTROPHILS % (AUTO) 50 % (42-75); PLATELET COUNT 400 10^3/uL (130-400); WHITE BLOOD COUNT 12.1 10^3/uL (4.3-11.0)
--- NOTE | 2020-03-15 17:11 | ED Cardiac General ---
History of Present Illness General Chief Complaint: Chest Pain Stated Complaint: HEADACHE Source: patient Exam Limitations: no limitations History of Present Illness Date Seen by Provider: Mar 15, 2020 Time Seen by Provider: 16:50 Initial Comments This is a well-appearing 59-year-old female who presents to the ER via [facility] with complaints of headache. States she took one of her Nitro tablets as she was concerned with her heart and called 911. While waiting for 911 she states she developed numbness in the right side of her face, chest pressure, and nausea/vomiting. EMS report hypotension upon arrival and initiated IVF. She denies any recent ill contacts, COVID exposures, weakness, cough, shortness of breath, fever, chills, diarrhea, or abdominal pain. Severity: mild Location: central Activities at Onset: none Allergies and Home Medications Allergies Coded Allergies: sulfamethoxazole (Verified Allergy, Intermediate, VOMITTING/MIGRAINE, 01/26/18) trimethoprim (Verified Allergy, Intermediate, VOMITTING/MIGRAINE, 01/26/18) pentazocine (Unverified Adverse Reaction, Mild, N/V, HEAD ACHE, 01/26/18) Home Medications Acetaminophen 500 Mg Tablet, 1,000 MG PO Q6H PRN for PAIN-MILD, (Reported) Albuterol Sulfate 18 Gm Hfa.aer.ad, 2 PUFF INH Q4H PRN for SHORTNESS OF BREATH, (Reported) Albuterol Sulfate 2.5 Mg/0.5 Ml Vial.neb, 2.5 MG IH Q4H PRN for SHORTNESS OF BREATH, (Reported) Aspirin 81 Mg Tablet.dr, 81 MG PO HS, (Reported) Atorvastatin Calcium 20 Mg Tablet, 20 MG PO HS, (Reported) Cefuroxime Axetil 250 Mg Tablet, 250 MG PO BID Prescribed by: ADALID ALMEIDA on 03/15/201943 Cyclobenzaprine HCl 10 Mg Tablet, 10 MG PO TID PRN for MUSCLE SPASMS, (Reported) Cyclosporine 1 Each Droperette, 1 DROP OU BID, (Reported) Diclofenac Sodium 100 Gm Gel..gram., 4 GM TP QID PRN for arthritis pain, (Reported) Dulaglutide 0.75 Mg/0.5 Ml Pen.injctr, 0.75 MG SQ WEEK, (Reported) Fenofibrate,Micronized 134 Mg Capsule, 134 MG PO HS, (Reported) Fluticasone/Vilanterol 1 Each Blst.w.dev, 1 EACH IH DAILY, (Reported) Gabapentin 300 Mg Capsule, 300 MG PO HS, (Reported) Ibuprofen 800 Mg Tablet, 800 MG PO Q8H PRN for PAIN-MILD, (Reported) Insulin Aspart 300 Units/3 Ml Solution, 12 UNITS SQ TIDAC, (Reported) Lansoprazole 30 Mg Capsule.dr, 30 MG PO DAILY, (Reported) Metoprolol Tartrate 25 Mg Tablet, 25 MG PO BID, (Reported) Nitroglycerin 0.4 Mg Tab.subl, 0.4 MG SL UD PRN for CHEST PAIN, (Reported) Ondansetron HCl 4 Mg Tablet, 4 MG PO Q6H PRN for NAUSEA/VOMITING-1ST LINE, (Reported) Rivaroxaban 15 Mg Tablet, 15 MG PO HS, (Reported) Sacubitril/Valsartan 1 Each Tablet, 1 TAB PO BID, (Reported) Venlafaxine HCl 150 Mg Cap.er.24h, 150 MG PO HS, (Reported) Patient Home Medication List Home Medication List Reviewed: Yes Review of Systems Review of Systems Constitutional: no symptoms reported EENTM: No Symptoms Reported Respiratory: No Symptoms Reported Cardiovascular: See HPI Gastrointestinal: See HPI Genitourinary: No Symptoms Reported Musculoskeletal: no symptoms reported Skin: no symptoms reported Psychiatric/Neurological: See HPI Endocrine: No Symptoms Reported Hematologic/Lymphatic: No Symptoms Reported Past Nnhpznd-Drxzhm-Ngreho Hx Patient Social History Type Used: Cigarettes Former Smoker, Quit: May 01, 2017 2nd Hand Smoke Exposure: No Recent Hopitalizations: No Immunizations Up To Date Tetanus Booster (TDap): More than 5yrs PED Vaccines UTD: No Date of Pneumonia Vaccine: May 01, 2015 Date of Influenza Vaccine: Mar 02, 2018 Seasonal Allergies Seasonal Allergies: Yes Past Medical History Surgeries: Yes (stents x3, colostomy then reversal, ) Abdominal, Appendectomy, Bowel Surgery, Breast, Cardiac, Coronary Stent, Eye Surgery, Gallbladder, Hysterectomy, Oophorectomy Respiratory: Yes (RESPIRATORY FAILURE ON 2013) Asthma, Pneumonia, Chronic Bronchitis, Pulmonary Embolism, COPD Currently Using CPAP: No Currently Using BIPAP: No Cardiac: Yes (STENT PLACED OCTOBER 2014 AFTER [place]) Coronary Artery Disease, Heart Attack, High Cholesterol, Hypertension Neurological: Yes (SEIZURE: 10 years ago last one) Seizure Disorder 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 Disorders: Yes (CERVICAL DYSPLASIA--S/P HYST/BSO) 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 Disorders: Denies 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 Sexually Transmitted Disease: No HIV/AIDS: No Genitourinary: Yes Kidney Stones, Renal Failure Gastrointestinal: Yes Gastroesophageal Reflux, Diverticulosis, Hiatal Hernia, Irritable Bowel Musculoskeletal: Yes Arthritis, Fibromyalgia, Rheumatoid Arthritis Endocrine: Yes Diabetes, Non-Insulin dep HEENT: Yes Glaucoma Loss of Vision: Denies Hearing Impairment: Denies Cancer: No Psychosocial: Yes Anxiety, Bipolar, Depression Integumentary: No (SHINGLES) Blood Disorders: Yes (hx of anemia) Adverse Reaction/Blood Tranf: No Family Medical History CANCER 19 MOTHER (PATIENT DOES NOT KNOW LOCATION) Cancer, Other Conditions/Hx Physical Exam Vital Signs Vital Signs - First Documented 03/15/20 03/15/20 17:04 19:52 Temp 35.9 Pulse 75 Resp 18 B/P (MAP) 110/55 (73) Pulse Ox 97 O2 Delivery Room Air Capillary Refill : Height, Weight, BMI Height: 5'2.00" Weight: 164lbs. 0.0oz. [id number]; 66.55 BMI Method:Stated General Appearance: No Apparent Distress, WD/WN HEENT: PERRL/EOMI, TMs Normal, Normal ENT Inspection, Pharynx Normal, Moist Mucous Membranes; No Photophobia Neck: Full Range of Motion, Normal Inspection, Non Tender, Supple Respiratory: Lungs Clear, Normal Breath Sounds, No Accessory Muscle Use, No Respiratory Distress Cardiovascular: Regular Rate, Rhythm, No Edema, Normal Peripheral Pulses; No Friction Rub Gastrointestinal: Normal Bowel Sounds, Non Tender, Soft, Distended Extremity: Normal Capillary Refill, Normal Inspection, Normal Range of Motion, Non Tender, No Pedal Edema Neurologic/Psychiatric: Alert, Oriented x3, No Motor/Sensory Deficits, Normal 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, 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 Norm as Tested; No Abnormal Cerebellar Tests, No Facial Droop, No Motor Weakness, No Sensory Deficit Skin: Normal Color, Warm/Dry Procedures/Interventions Date of ETT Placement: Feb 11, 2016 Time of ETT Placement: 1341 Progress/Results/Core Measures Results/Orders Lab Results Laboratory Tests Test 03/15/20 16:56 03/15/20 17:35 03/15/20 19:10 Range/Units White Blood Count 12.1 H 4.3-11.0 10^3/uL Red Blood Count 4.71 3.80-5.11 10^6/uL Hemoglobin 14.9 11.5-16.0 g/dL Hematocrit 44 35-52 % Mean Corpuscular Volume 94 80-99 fL Mean Corpuscular Hemoglobin 32 25-34 pg Mean Corpuscular Hemoglobin Concent 34 32-36 g/dL Red Cell Distribution Width 12.4 10.0-14.5 % Platelet Count 400 130-400 10^3/uL Mean Platelet Volume 10.4 9.0-12.2 fL Immature Granulocyte % (Auto) 0 % Neutrophils (%) (Auto) 50 42-75 % Lymphocytes (%) (Auto) 37 12-44 % Monocytes (%) (Auto) 10 0-12 % Eosinophils (%) (Auto) 3 0-10 % Basophils (%) (Auto) 1 0-10 % Neutrophils # (Auto) 6.0 1.8-7.8 10^3/uL Lymphocytes # (Auto) 4.5 H 1.0-4.0 10^3/uL Monocytes # (Auto) 1.2 H 0.0-1.0 10^3/uL Eosinophils # (Auto) 0.3 0.0-0.3 10^3/uL Basophils # (Auto) 0.1 0.0-0.1 10^3/uL Immature Granulocyte # (Auto) 0.1 0.0-0.1 10^3/uL Prothrombin Time 13.5 12.2-14.7 SEC INR Comment 1.0 0.8-1.4 Activated Partial Thromboplast Time 29 24-35 SEC Sodium Level 137 135-145 MMOL/L Potassium Level 5.7 H 3.6-5.0 MMOL/L Chloride Level 106 98-107 MMOL/L Carbon Dioxide Level 21 21-32 MMOL/L Anion Gap 10 5-14 MMOL/L Blood Urea Nitrogen 15 7-18 MG/DL Creatinine 1.05 0.60-1.30 MG/DL Estimat Glomerular Filtration Rate 54 BUN/Creatinine Ratio 14 Glucose Level 94 70-105 MG/DL Calcium Level 9.3 8.5-10.1 MG/DL Corrected Calcium 9.2 8.5-10.1 MG/DL Magnesium Level 2.1 1.6-2.4 MG/DL Total Bilirubin 0.3 0.1-1.0 MG/DL Aspartate Amino Transf (AST/SGOT) 37 H 5-34 U/L Alanine Aminotransferase (ALT/SGPT) 32 0-55 U/L Alkaline Phosphatase 111 40-136 U/L Myoglobin 55.6 10.0-92.0 NG/ML Troponin I < 0.028 < 0.028 <0.028 NG/ML Total Protein 7.8 6.4-8.2 GM/DL Albumin 4.1 3.2-4.5 GM/DL Urine Color YELLOW Urine Clarity CLEAR Urine pH 6.5 5-9 Urine Specific [place] 1.015 L 1.016-1.022 Urine Protein NEGATIVE NEGATIVE Urine Glucose (UA) NEGATIVE NEGATIVE Urine Ketones NEGATIVE NEGATIVE Urine Nitrite POSITIVE H NEGATIVE Urine Bilirubin NEGATIVE NEGATIVE Urine Urobilinogen 0.2 < = 1.0 MG/DL Urine Leukocyte Esterase 2+ H NEGATIVE Urine RBC (Auto) NEGATIVE NEGATIVE Urine RBC NONE /HPF Urine WBC 10-25 H /HPF Urine Squamous Epithelial Cells 2-5 /HPF Urine Crystals NONE /LPF Urine Bacteria MODERATE H /HPF Urine Casts NONE /LPF Urine Mucus NEGATIVE /LPF Urine Culture Indicated YES My Orders Orders - ADALID ALMEIDA APRN Cbc With Automated Diff (03/15/20 17:00) Magnesium (03/15/20 17:00) Chest 1 View, Ap/Pa Only (03/15/20 17:00) Ekg Tracing (03/15/20 17:00) Comprehensive Metabolic Panel (03/15/20 17:00) Myoglobin Serum (03/15/20 17:00) Protime With Inr (03/15/20 17:00) Partial Thromboplastin Time (03/15/20 17:00) Monitor-Rhythm Ecg Trace Only (03/15/20 17:00) Ed Iv/Invasive Line Start (03/15/20 17:00) Troponin I (03/15/20 17:00) Ct Head Wo-R/O Stroke (03/15/20 17:00) Morphine Injection (Morphine Injection (03/15/20 17:15) Ondansetron Injection (Zofran Injectio (03/15/20 17:15) Ns Iv 1000 Ml (Sodium Chloride 0.9%) (03/15/20 17:15) Morphine Injection (Morphine Injection (03/15/20 17:31) Ua Culture If Indicated (03/15/20 17:51) Urine Culture (03/15/20 17:35) Ketorolac Injection (Toradol Injection) (03/15/20 18:30) Ceftriaxone For Iv Use (Rocephin For I (03/15/20 18:30) Troponin I (03/15/20 18:53) Medications Given in ED Current Medications Medications Dose Ordered Sig/Jamie Route Start Time Stop Time Status Last Admin Dose Admin Ceftriaxone Sodium 1000 mg/ Sterile Water 10 ml @ 200 mls/hr ONCE ONCE IV 03/15/20 18:30 03/15/20 18:39 DC 03/15/20 19:01 200 MLS/HR Ketorolac Tromethamine 15 mg ONCE ONCE IVP 03/15/20 18:30 03/15/20 18:31 DC 03/15/20 19:02 15 MG Morphine Sulfate 10 mg STK-MED ONCE .ROUTE 03/15/20 17:31 03/15/20 17:34 DC 03/15/20 17:39 1 MG Ondansetron HCl 4 mg ONCE ONCE IVP 03/15/20 17:15 03/15/20 17:16 DC 03/15/20 17:38 4 MG Sodium Chloride 1,000 ml @ 100 mls/hr Q10H ONCE IV 03/15/20 17:15 03/15/20 19:53 DC 03/15/20 17:38 100 MLS/HR Vital Signs/I&O 03/15/20 03/15/20 03/15/20 03/15/20 17:04 17:15 17:39 19:02 Temp 35.9 35.9 35.9 Pulse 75 Resp 18 B/P (MAP) 110/55 (73) O2 Delivery Room Air Room Air 03/15/20 19:52 Temp 36.1 Pulse 84 Resp 18 B/P (MAP) 107/62 (73) Pulse Ox 97 O2 Delivery Room Air Progress Progress Note : Progress Note Upon arrival pt awake, alert and talking. Initiated stroke and cardiac workup. BG 106. CT head w/o-NAD Labs/imaging reviewed and patient noted to have UTI. Cardiac markers negative, neuro exam negative for deficits. Will repeat troponin in two hours. Repeat troponin negative. Given Rocephin 1gm IV for UTI. Reviewed findings and discharge plan with her, she is agreeable with plan. Reported improvement in STREETER and symptoms at discharge. Ambulated independently without issue to discharge window. Initial ECG Impression Date: Mar 15, 2020 Initial ECG Impression Time: 16:57 Initial ECG Rate: 68 Initial ECG Rhythm: Normal Sinus Diagnostic Imaging Diagonstic Imaging: CT Plain Films/CT/US/NM/MRI: head Comments NAME: [facility] REC#: [id number] PT STATUS: REG ER : 1960 PHYSICIAN: ADALID ALMEIDA APRN ADMIT DATE: 03/15/20/ER Signed Date of Exam:03/15/20 CT HEAD WO-R/O STROKE PROCEDURE: CT head wo r/o stroke. TECHNIQUE: Multiple contiguous axial images were obtained through the brain without the use of intravenous contrast. Auto Exposure Controls were utilized during the CT exam to meet ALARA standards for radiation dose reduction. INDICATION: Right-sided weakness The ventricles are normal in size, shape and position. There are no masses or hemorrhages. There are no extra-axial fluid collections. There is no CT evidence of acute infarct. IMPRESSION: No acute abnormality seen in head. Dictated by: Dictated on workstation # [id number] Dict: 03/15/201812 Trans: 03/15/201813 [id number] Interpreted by: RAMÍREZ WHYTE MD Electronically signed by: RAMÍREZ WHYTE MD 03/15/201813 Diagonstic Imaging: Xray Plain Films/CT/US/NM/MRI: chest Comments NAME: [facility] REC#: [id number] PT STATUS: REG ER : 1960 PHYSICIAN: ADALID ALMEIDA APRN ADMIT DATE: 03/15/20/ER Signed Date of Exam:03/15/20 CHEST 1 VIEW, AP/PA ONLY Indication: Chest pain Portable chest 6:08 PM Heart size and pulmonary vascularity are normal. Lungs are clear. There are no effusions or pneumothoraces. IMPRESSION: Negative chest Dictated by: Dictated on workstation # [id number] Dict: 03/15/201809 Trans: 03/15/201810 [id number] Interpreted by: RAMÍREZ WHYTE MD Electronically signed by: RAMÍREZ WHYTE MD 03/15/20 1811 Departure Impression Primary Impression: Urinary tract bacterial infections Additional Impressions: Headache Chest discomfort Disposition: HOME, SELF-CARE Condition: Improved Departure-Patient Inst. Referrals: DIXIE ZELAYA MD (PCP/Family) Primary Care Physician Patient Instructions: Urinary Tract Infections in Adults Add. Discharge Instructions: Plan: 1. Discharge home. Increase your water intake. 2. May take Tylenol or Ibuprofen as needed for pain per package instructions. 3. Take antibiotics as directed and complete full course. 4. Follow up with your primary care provider if your symptoms persist. 5. Return for any new or concerning symptoms. All discharge instructions reviewed with patient and/or family. Voiced understanding. Scripts Cefuroxime Axetil (Cefuroxime) 250 Mg Tablet 250 MG PO BID for 10 Days, #20 TAB 0 Refills Prov: ADALID ALMEIDA PROP CUTTER 03/15/20 ADALID ALMEIDA PROP CUTTER Mar 15, 2020 17:11
[2020-03-15] MEDS ORDERED: morphine INJ 4 MG/ML 1 ML (VIAL/SYRINGE) IVP ONE (17:15)
[2020-03-15] MEDS ORDERED: ONDANSETRON 4 MG/2 ML (SDV) Z0FRAN IVP ONE (17:15)
[2020-03-15] MEDS ORDERED: NS IV 1000 ML 1,000 ML IV ONE (17:15)
[2020-03-15 17:22] LABS: ALBUMIN 4.1 GM/DL (3.2-4.5); POTASSIUM 5.7 MMOL/L (3.6-5.0); PROTHROMBIN TIME PATIENT 13.5 SEC (12.2-14.7)
[2020-03-15 17:24] LABS: CALCIUM 9.3 MG/DL (8.5-10.1)
[2020-03-15 17:25] LABS: TOTAL PROTEIN 7.8 GM/DL (6.4-8.2)
[2020-03-15 17:27] LABS: BILIRUBIN,TOTAL 0.3 MG/DL (0.1-1.0)
[2020-03-15 17:28] LABS: CREATININE SERUM 1.05 MG/DL (0.60-1.30)
[2020-03-15 17:31] LABS: MAGNESIUM 2.1 MG/DL (1.6-2.4)
[2020-03-15] MEDS ORDERED: morphine INJ 10 MG/ML 1ML (SYR OR VIAL) ONE (17:31)
[2020-03-15 17:57] LABS: BILIRUBIN,URINE NEGATIVE (NEGATIVE); CLARITY,URINE CLEAR; COLOR,URINE YELLOW; GLUCOSE, URINE (UA) NEGATIVE (NEGATIVE); KETONES,URINE NEGATIVE (NEGATIVE); LEUKOCYTE ESTERASE ,URINE 2+ (NEGATIVE); NITRITE,URINE POSITIVE (NEGATIVE); PH,URINE 6.5 (5-9); PROTEIN,URINE NEGATIVE (NEGATIVE)
[2020-03-15 18:05] LABS: BACTERIA,URINE MODERATE /HPF
--- NOTE | 2020-03-15 18:12 | Diagnostic Imaging Report ---
Indication: Chest pain Portable chest 6:08 PM Heart size and pulmonary vascularity are normal. Lungs are clear. There are no effusions or pneumothoraces. IMPRESSION: Negative chest Dictated by: Dictated on workstation # [id number]
--- NOTE | 2020-03-15 18:16 | Diagnostic Imaging Report ---
PROCEDURE: CT head wo r/o stroke. TECHNIQUE: Multiple contiguous axial images were obtained through the brain without the use of intravenous contrast. Auto Exposure Controls were utilized during the CT exam to meet ALARA standards for radiation dose reduction. INDICATION: Right-sided weakness The ventricles are normal in size, shape and position. There are no masses or hemorrhages. There are no extra-axial fluid collections. There is no CT evidence of acute infarct. IMPRESSION: No acute abnormality seen in head. Dictated by: Dictated on workstation # [id number]
[2020-03-15] MEDS ORDERED: KETOROLAC 30 MG/ML VIAL IVP ONE (18:30)
[2020-03-15] MEDS ORDERED: cefTRIAXone FOR IV USE 1,000 MG in WATER (STERILE) FOR INJECTION 10 ML IV ONE (18:30)
[2020-03-15] MEDS ORDERED: CEFU250T80 PO (19:44)
[2020-03-15 19:52] VITALS: BP 107/62
== END 2020-03-15 19:52 | disposition home or self-care (01) ==
LOC: EDUNIT# 16:44 → ER 16:45
DX: N39.0 Urinary tract infection, site not specified (principal); R51.9 Headache, unspecified; R07.89 Other chest pain; K21.9 Gastro-esophageal reflux disease without esophagitis; I10 Essential (primary) hypertension; F41.9 Anxiety disorder, unspecified; F32.9 Major depressive disorder, single episode, unspecified; I25.2 Old myocardial infarction; J44.9 Chronic obstructive pulmonary disease, unspecified; E11.9 Type 2 diabetes mellitus without complications; E78.00 Pure hypercholesterolemia, unspecified; G40.909 Epilepsy, unspecified, not intractable, without status epilepticus; Z80.9 Family history of malignant neoplasm, unspecified; Z87.891 Personal history of nicotine dependence; Z95.5 Presence of coronary angioplasty implant and graft; Z88.2 Allergy status to sulfonamides; Z88.1 Allergy status to other antibiotic agents; Z88.8 Allergy status to other drugs, medicaments and biological substances; Z86.711 Personal history of pulmonary embolism; Z79.82 Long term (current) use of aspirin; Z79.01 Long term (current) use of anticoagulants
CPT/HCPCS: 36415; 70450; 71045; 80053; 81000; 83735; 83874; 84484; 85025; 85610; 85730; 87077; 87088; 93005; 93041

== ENCOUNTER 2020-05-04 05:31 | Outpatient (RCR) | payer MEDICARE, MEDICAID ==
[~2020-05-04] VITALS: Ht 157 cm; Wt 71.0 kg
[~2020-05-04 05:31] MED LIST changes: +CEFU250T80 PO
== END 2020-05-04 15:15 | disposition home or self-care (01) ==
LOC: PREOP 05:31
PROVIDERS: ATTEND Surgery
DX: Z01.812 Encounter for preprocedural laboratory examination (principal); K29.70 Gastritis, unspecified, without bleeding; R13.10 Dysphagia, unspecified; Z86.010 Personal history of colon polyps; Z20.822 Contact with and (suspected) exposure to COVID-19
CPT/HCPCS: 87635

== ENCOUNTER 2020-06-08 05:32 | Outpatient (RCR) | payer MEDICARE, MEDICAID ==
[~2020-06-08] VITALS: Ht 157.5 cm; Wt 70.8 kg
[~2020-06-08 05:32] MED LIST changes: +GABA300C PO; +MTC10T PO; +VENL150C PO
== END 2020-06-08 11:41 | disposition home or self-care (01) ==
LOC: PREOP 05:32
PROVIDERS: ATTEND Surgery
DX: Z01.812 Encounter for preprocedural laboratory examination (principal); K29.70 Gastritis, unspecified, without bleeding; R13.10 Dysphagia, unspecified; Z86.010 Personal history of colon polyps; Z20.822 Contact with and (suspected) exposure to COVID-19
CPT/HCPCS: 87635

== ENCOUNTER 2020-06-12 08:16 | Day surgery (SDC) | payer MEDICARE, MEDICAID ==
[~2020-06-12] VITALS: Ht 157 cm; Wt 71.0 kg
[2020-06-12] VITALS (7 sets, daily range): BP systolic 87–125; BP diastolic 49–72
[2020-06-12] MEDS ORDERED: LACTATED RINGERS 1,000 ML IV ONE (08:20)
[2020-06-12] MEDS ORDERED: LACTATED RINGERS 1,000 ML IV STA (08:22)
[2020-06-12] MEDS ORDERED: HURRICAINE EXT TUBE (BENZOCAINE) XX PRN (08:30)
[2020-06-12] MEDS ORDERED: PROPOFOL INJECTION 50 ML IV ONE ×2 (09:19→10:02)
[2020-06-12] MEDS ORDERED: MIDAZOLAM 2 MG/2 ML (VERSED) VIAL ONE (09:19)
[2020-06-12] MEDS ORDERED: HURRICAINE EXT TUBE (BENZOCAINE) ONE (09:27)
--- NOTE | 2020-06-12 10:18 | Progress Note-Post Operative ---
Post-Operative Progess Note Surgeon (s)/Income Tax Auditor (s) Surgeon DIGNA MARISCAL DO Income Tax Auditor: none Pre-Operative Diagnosis Dysphagia, Melena, Anemia Post-Operative Diagnosis Gastritis Gastric Polyp Poor prep Procedure & Operative Findings Date of Procedure 06/12/20 Procedure Performed/Findings EGD with bx Flex sig Anesthesia Type IV sedation by CONTRACT GRAPHIC DESIGNER Estimated Blood Loss Estimated blood loss (mL): scant Specimens/Packing Specimens Removed antral bx body of stomach bx GE jxn bx DIGNA MARISCAL DO Jun 12, 2020 10:18
--- NOTE | 2020-06-12 10:20 | Endoscopy Discharge Instruct ---
Endo Procedure/Findings Findings 1.: Gastritis 2.: Other Findings (Poor prep) Discharge Instructions - Activity: You might feel a little sleepy until tomorrow. This is due to the medicine you received to relax you. Until tomorrow, you should: NOT drive a car, operate machinery or power tools. NOT drink any alcoholic beverages. NOT make any important decisions or sign importortant papers. Do not return to work until tomorrow, unless otherwise instructed. Resume previous activities tomorrow. Diet: Start by taking liquids. If you tolerate liquids, advance to solid food. 1.: EGD in 3 years 2.: Colonoscopy in 1 year Notify Physician - If you experience excessive bleeding, unusual abdominal pain, fever, or chest pain, contact your doctor immediately. DIGNA MARISCAL DO Jun 12, 2020 10:20
--- NOTE | 2020-06-12 10:37 | Anesthesia-General Post-Op ---
MAC Patient Condition Mental Status/LOC: Same as Preop Cardiovascular: Satisfactory Nausea/Vomiting: Absent Respiratory: Satisfactory Pain: Controlled Complications: Absent Post Op Complications Complications None Follow Up Care/Instructions Patient Instructions None needed. Anesthesiology Discharge Order Discharge Order Patient is doing well, no complaints, stable vital signs, no apparent adverse anesthesia problems. No complications reported per nursing. ZAYRA YANES CRNA Jun 12, 2020 10:37
--- NOTE | 2020-06-12 21:53 | OPERATIVE REPORT ---
DATE OF SERVICE: PREOPERATIVE DIAGNOSES: Dysphagia, right upper quadrant pain, history of colon polyps. POSTOPERATIVE DIAGNOSES: Gastritis and gastric polyp as well as poor prep, internal hemorrhoids. PROCEDURE: 1. EGD with biopsy. 2. Flex sig. SURGEON: Sage Singh DO MEDICAL OFFICE TECHNOLOGY INSTRUCTOR: None. ANESTHESIA: IV sedation by the STONE OPERATOR. SPECIMENS: Biopsy of antrum, biopsy of body of stomach, biopsy of GE junction. BLOOD LOSS: Scant. FLUIDS: Per anesthesia. POSTOPERATIVE CONDITION: Stable. INDICATION FOR PROCEDURE: The patient is a 59-year-old female who has been having some dysphagia and right upper quadrant pain as well she has a history of colon polyps, needed a workup. FINDINGS: The patient had pretty severe gastritis in the stomach, also I saw a gastric polyp. Unfortunately, in the colon, she had large amount of fully formed fecal material and unable to perform the colonoscopy. PROCEDURE NOTE: After informed consent was obtained, the patient was brought to the endoscopy suite, placed in bed in left lateral decubitus position. She was administered IV sedation by the STONE OPERATOR who then monitored her vitals the entire time, heart rate, blood pressure and pulse ox and started with the EGD, placed the scope down the mouth through the esophagus into the stomach. Upon entering the stomach, noted some very pretty severe gastritis, took a picture of this, pushing the duodenum. Duodenum looked fine. Pulled back and did a biopsy of the antrum. Retroflexed the scope, saw some mild inflammation of the body of stomach, did a biopsy. Here, also saw a very small what looked like a normal fundic gland polyp, did not see hiatal hernia. Pulled the scope into the GE junction, did biopsy of the GE junction and then pushed the scope back into the stomach, suctioned all the air out and then pulled the scope up the esophagus. On the way up the esophagus, took pictures, did not appear to be any blockages or reason for dysphagia. At this point, switched camera, switched gloves, went down below, started the colonoscopy. Unfortunately, immediately upon entry, noted large fully formed fecal material, able to get pass this up into the descending colon, but could not get any further than this and could not really see the rai because of this retained fecal material, so at this point then completely removed the scope. The patient tolerated the procedure. She was recovered in the endoscopy suite. Job ID: [id number] DocumentID: [id number] Dictated Date: 06/12/2020 16:04:01 Floor Covering Contractor Date: 06/12/2020 21:52:50 Dictated By: SAGE SINGH DO
== END 2020-06-12 11:25 | disposition home or self-care (01) ==
LOC: ENDO 08:16
PROVIDERS: ATTEND Surgery
DX: K21.00 Gastro-esophageal reflux disease with esophagitis, without bleeding (principal); K29.50 Unspecified chronic gastritis without bleeding; I10 Essential (primary) hypertension; I25.10 Atherosclerotic heart disease of native coronary artery without angina pectoris; J44.9 Chronic obstructive pulmonary disease, unspecified; F17.210 Nicotine dependence, cigarettes, uncomplicated; E11.9 Type 2 diabetes mellitus without complications; M19.90 Unspecified osteoarthritis, unspecified site; M81.0 Age-related osteoporosis without current pathological fracture; M79.7 Fibromyalgia; E78.2 Mixed hyperlipidemia; D64.9 Anemia, unspecified; G47.10 Hypersomnia, unspecified; G47.50 Parasomnia, unspecified; I25.2 Old myocardial infarction; I26.99 Other pulmonary embolism without acute cor pulmonale; F41.9 Anxiety disorder, unspecified; Z86.010 Personal history of colon polyps; Z90.49 Acquired absence of other specified parts of digestive tract; Z90.710 Acquired absence of both cervix and uterus; Z79.891 Long term (current) use of opiate analgesic; Z88.0 Allergy status to penicillin; Z95.1 Presence of aortocoronary bypass graft; Z88.8 Allergy status to other drugs, medicaments and biological substances; Z88.1 Allergy status to other antibiotic agents; Z79.4 Long term (current) use of insulin
CPT/HCPCS: 82962; 88305

== ENCOUNTER → 2020-06-27 | Outpatient (CLI) | payer MEDICARE, MEDICAID ==
[2020-06-27 12:12] LABS: BASOPHILS # (AUTO) 0.1 10^3/uL (0.0-0.1); BASOPHILS % (AUTO) 1 % (0-10); EOSINOPHILS # (AUTO) 0.1 10^3/uL (0.0-0.3); EOSINOPHILS % (AUTO) 1 % (0-10); HEMATOCRIT 41 % (35-52); LYMPHOCYTES # (AUTO) 3.2 10^3/uL (1.0-4.0); LYMPHOCYTES % (AUTO) 30 % (12-44); MEAN CORPUSCULAR HEMOGLOBIN 32 pg (25-34); MEAN CORPUSCULAR HGB CONC 34 g/dL (32-36); MEAN CORPUSCULAR VOLUME 92 fL (80-99); MEAN PLATELET VOLUME 9.6 fL (9.0-12.2); MONOCYTES # (AUTO) 0.9 10^3/uL (0.0-1.0); MONOCYTES % (AUTO) 8 % (0-12); NEUTROPHILS # (AUTO) 6.2 10^3/uL (1.8-7.8); NEUTROPHILS % (AUTO) 59 % (42-75); PLATELET COUNT 386 10^3/uL (130-400); WHITE BLOOD COUNT 10.5 10^3/uL (4.3-11.0)
[2020-06-27 12:36] LABS: ALANINE AMINOTRANSFERASE 33 U/L (0-55); ALBUMIN 3.9 GM/DL (3.2-4.5); ALKALINE PHOSPHATASE 122 U/L (40-136); BILIRUBIN,TOTAL 0.4 MG/DL (0.1-1.0); BUN/CREATININE RATIO 15; CALCIUM 9.3 MG/DL (8.5-10.1); CARBON DIOXIDE 19 MMOL/L (21-32); CHLORIDE 111 MMOL/L (98-107); CREATININE SERUM 0.86 MG/DL (0.60-1.30); GFR ESTIMATED > 60; GLUCOSE 166 MG/DL (70-105); POTASSIUM 3.8 MMOL/L (3.6-5.0); SODIUM 140 MMOL/L (135-145)
== END ==
LOC: ONC 11:53
PROVIDERS: ATTEND Internal Medicine Hematology & Oncology
DX: D72.829 Elevated white blood cell count, unspecified (principal); D47.3 Essential (hemorrhagic) thrombocythemia; I26.99 Other pulmonary embolism without acute cor pulmonale; J44.9 Chronic obstructive pulmonary disease, unspecified; D64.9 Anemia, unspecified; I25.10 Atherosclerotic heart disease of native coronary artery without angina pectoris; I11.9 Hypertensive heart disease without heart failure; E78.2 Mixed hyperlipidemia; E11.9 Type 2 diabetes mellitus without complications; F41.8 Other specified anxiety disorders
CPT/HCPCS: 80053; 82728; 83540; 83550; 83615; 84443; 85025; 99213

== ENCOUNTER 2020-07-12 13:41 | Emergency (ER) | payer MEDICARE, MEDICAID ==
[~2020-07-12] VITALS: Ht 157 cm; Wt 70.0 kg
[2020-07-12 14:05] LABS: BASOPHILS # (AUTO) 0.1 10^3/uL (0.0-0.1); BASOPHILS % (AUTO) 1 % (0-10); EOSINOPHILS # (AUTO) 0.1 10^3/uL (0.0-0.3); EOSINOPHILS % (AUTO) 1 % (0-10); HEMATOCRIT 42 % (35-52); HEMOGLOBIN 13.9 g/dL (11.5-16.0); LYMPHOCYTES # (AUTO) 3.1 10^3/uL (1.0-4.0); LYMPHOCYTES % (AUTO) 28 % (12-44); MEAN CORPUSCULAR HEMOGLOBIN 32 pg (25-34); MEAN CORPUSCULAR HGB CONC 33 g/dL (32-36); MEAN CORPUSCULAR VOLUME 95 fL (80-99); MEAN PLATELET VOLUME 9.7 fL (9.0-12.2); MONOCYTES # (AUTO) 0.9 10^3/uL (0.0-1.0); MONOCYTES % (AUTO) 8 % (0-12); NEUTROPHILS # (AUTO) 6.7 10^3/uL (1.8-7.8); NEUTROPHILS % (AUTO) 61 % (42-75); PLATELET COUNT 362 10^3/uL (130-400); WHITE BLOOD COUNT 11.1 10^3/uL (4.3-11.0)
[2020-07-12 14:13] LABS: ALBUMIN 3.7 GM/DL (3.2-4.5); CHLORIDE 106 MMOL/L (98-107); POTASSIUM 3.8 MMOL/L (3.6-5.0); SODIUM 138 MMOL/L (135-145)
[2020-07-12 14:14] LABS: CALCIUM 8.6 MG/DL (8.5-10.1)
[2020-07-12 14:15] LABS: GLUCOSE 214 MG/DL (70-105); TOTAL PROTEIN 6.3 GM/DL (6.4-8.2)
[2020-07-12] MEDS ORDERED: NS IV 1000 ML 1,000 ML IV SCH (14:15)
[2020-07-12 14:16] LABS: CARBON DIOXIDE 21 MMOL/L (21-32)
[2020-07-12 14:17] LABS: BILIRUBIN,TOTAL 0.3 MG/DL (0.1-1.0)
[2020-07-12 14:19] LABS: ALKALINE PHOSPHATASE 102 U/L (40-136); CREATININE SERUM 0.88 MG/DL (0.60-1.30); GFR ESTIMATED > 60
[2020-07-12] MEDS ORDERED: ACETAMINOPHEN 325 MG TABLET PO STA (14:19)
[2020-07-12 14:20] LABS: BUN/CREATININE RATIO 26
[2020-07-12 14:21] LABS: BILIRUBIN,URINE NEGATIVE (NEGATIVE); CLARITY,URINE CLEAR; COLOR,URINE YELLOW; GLUCOSE, URINE (UA) TRACE (NEGATIVE); KETONES,URINE NEGATIVE (NEGATIVE); LEUKOCYTE ESTERASE ,URINE TRACE (NEGATIVE); NITRITE,URINE NEGATIVE (NEGATIVE); PROTEIN,URINE NEGATIVE (NEGATIVE)
[2020-07-12 14:22] LABS: ALANINE AMINOTRANSFERASE 21 U/L (0-55)
--- NOTE | 2020-07-12 14:24 | ED General ---
General Chief Complaint: Dizziness/Syncope Stated Complaint: DIZZINESS Nursing Triage Note: ARRIVED VIA EMS FROM HOME. PT STATES HER BLOOD SUGAR WAS IN THE 30'S THIS AM. WAS ABLE TO GET IT UP HERSELF ET EMS REPORTS BLOOD SUGAR OF 210. PT STATES SHE FEELS DIZZY AND FOGGY STILL AND THINKS SHE HAS A UTI. Nursing Sepsis Screen: No Definite Risk History of Present Illness Date Seen by Provider: Jul 12, 2020 Time Seen by Provider: 13:45 Initial Comments 59 year old female presents for hypoglycemia. She reports her blood sugar was 30 this morning she was able to eat a glazed donut and take a teaspoon of sugar it then went over 200. Since then she has been feeling dizzy and weak. Her blood sugars normally run 60-1 20 and her last hemoglobin A1c was 6. She is concerned of a possible UTI. Timing/Duration: 4-6 Hours Severity: Mild Associated Systoms: No Chest Pain, No Diaphoresis, No Fever/Chills; Headaches; No Loss of Appetite; Malaise; No Nausea/Vomiting, No Seizure, No Shortness of Air, No Syncope; Weakness Allergies and Home Medications Allergies Coded Allergies: sulfamethoxazole (Verified Allergy, Intermediate, VOMITTING/MIGRAINE, 01/26/18) trimethoprim (Verified Allergy, Intermediate, VOMITTING/MIGRAINE, 01/26/18) pentazocine (Unverified Adverse Reaction, Mild, N/V, HEAD ACHE, 01/26/18) Home Medications Acetaminophen 500 Mg Tablet, 1,000 MG PO Q6H PRN for PAIN-MILD, (Reported) Atorvastatin Calcium 20 Mg Tablet, 20 MG PO BID, (Reported) Fenofibrate,Micronized 134 Mg Capsule, 134 MG PO HS, (Reported) Gabapentin 300 Mg Capsule, 300 MG PO BID, (Reported) Lansoprazole 30 Mg Capsule.dr, 30 MG PO DAILY, (Reported) Metoprolol Tartrate 25 Mg Tablet, 25 MG PO BID, (Reported) Sacubitril/Valsartan 1 Each Tablet, 1 TAB PO BID, (Reported) Venlafaxine HCl 150 Mg Cap.er.24h, 300 MG PO HS, (Reported) Patient Home Medication List Home Medication List Reviewed: Yes Review of Systems Review of Systems Constitutional: no symptoms reported, see HPI Respiratory: no symptoms reported, see HPI Genitourinary: see HPI, dysuria, frequency; No hematuria, No pain Psychiatric/Neurological: See HPI, Headache All Other Systems Reviewed Negative Unless Noted: Yes Past Umtcalt-Uusibw-Rajqxt Hx Past Med/Social Hx: Reviewed Nursing Past Med/Soc Hx Patient Social History Alcohol Use: Denies Use Smoking Status: Current Everyday Smoker Type Used: Cigarettes Former Smoker, Quit: May 01, 2017 2nd Hand Smoke Exposure: No Recent Infectious Disease Expo: No Recent Hopitalizations: No Immunizations Up To Date Tetanus Booster (TDap): More than 5yrs PED Vaccines UTD: No Date of Pneumonia Vaccine: May 01, 2015 Date of Influenza Vaccine: Dec 29, 2019 Seasonal Allergies Seasonal Allergies: Yes Past Medical History Surgeries: Yes (stents x3, colostomy then reversal, ) Abdominal, Appendectomy, Bowel Surgery, Breast, Cardiac, Coronary Stent, Eye Surgery, Gallbladder, Hysterectomy, Oophorectomy Respiratory: Yes (RESPIRATORY FAILURE ON VENT 2013) Asthma, Pneumonia, Chronic Bronchitis, Pulmonary Embolism, COPD Currently Using CPAP: No Currently Using BIPAP: No Cardiac: Yes (STENT PLACED OCTOBER 2014 AFTER [place]) Coronary Artery Disease, Heart Attack, High Cholesterol, Hypertension Neurological: Yes (SEIZURE: 10 years ago last one) Seizure Disorder 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 Disorders: Yes (CERVICAL DYSPLASIA--S/P HYST/BSO) 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 Disorders: Denies 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 History: Hysterectomy Sexually Transmitted Disease: No HIV/AIDS: No Genitourinary: Yes Kidney Stones, Renal Failure Gastrointestinal: Yes Gastroesophageal Reflux, Diverticulosis, Hiatal Hernia, Irritable Bowel Musculoskeletal: Yes Osteoporosis, Arthritis, Fibromyalgia, Rheumatoid Arthritis Endocrine: Yes Diabetes, Non-Insulin dep HEENT: Yes Glaucoma Loss of Vision: Denies Hearing Impairment: Denies Cancer: No Psychosocial: Yes Anxiety, Bipolar, Depression Integumentary: Yes (HX OF SHINGLES) Blood Disorders: Yes (hx of anemia) Adverse Reaction/Blood Tranf: No Family Medical History CANCER 19 MOTHER (PATIENT DOES NOT KNOW LOCATION) Cancer, Other Conditions/Hx Physical Exam Vital Signs Vital Signs - First Documented 07/12/20 13:41 Temp 36.2 Pulse 76 Resp 16 B/P (MAP) 121/60 (80) Pulse Ox 97 O2 Delivery Room Air Capillary Refill : Less Than 3 Seconds Height, Weight, BMI Height: 5'2.00" Weight: 164lbs. 0.0oz. 74.776429oo; 28.00 BMI Method:Stated General Appearance: No Apparent Distress, WD/WN Eyes: Bilateral Eye Normal Inspection, Bilateral Eye PERRL, Bilateral Eye EOMI HEENT: PERRL/EOMI, TMs Normal, Normal ENT Inspection, Pharynx Normal Neck: Full Range of Motion, Normal Inspection, Non Tender, Supple Respiratory: Chest Non Tender, Lungs Clear, Normal Breath Sounds Cardiovascular: Regular Rate, Rhythm, No Edema, No Murmur, Normal Peripheral Pulses Gastrointestinal: Normal Bowel Sounds, Non Tender, Soft Back: Normal Inspection, No CVA Tenderness, No Vertebral Tenderness Extremity: Normal Capillary Refill, Normal Inspection, Normal Range of Motion, Non Tender, No Calf Tenderness Neurologic/Psychiatric: Alert, Oriented x3, No Motor/Sensory Deficits Skin: Normal Color, Warm/Dry Procedures/Interventions Date of ETT Placement: Feb 11, 2016 Time of ETT Placement: 1341 Progress/Results/Core Measures Suspected Sepsis Recent Fever Within 48 Hours: No Infection Criteria Present: Suspected New Infection New/Unexplained Altered Menta: No Sepsis Screen: No Definite Risk SIRS Temperature: Pulse: 76 Respiratory Rate: 16 Laboratory Tests 07/12/20 13:59: White Blood Count 11.1H Blood Pressure 121 /60 Mean: 80 Laboratory Tests 07/12/20 13:50: Creatinine 0.88, Total Bilirubin 0.3 07/12/20 13:59: Platelet Count 362 Results/Orders Lab Results Laboratory Tests Test 07/12/20 13:50 07/12/20 13:51 07/12/20 13:59 07/12/20 14:14 Range/Units Sodium Level 138 135-145 MMOL/L Potassium Level 3.8 3.6-5.0 MMOL/L Chloride Level 106 98-107 MMOL/L Carbon Dioxide Level 21 21-32 MMOL/L Anion Gap 11 5-14 MMOL/L Blood Urea Nitrogen 23 H 7-18 MG/DL Creatinine 0.88 0.60-1.30 MG/DL Estimat Glomerular Filtration Rate > 60 BUN/Creatinine Ratio 26 Glucose Level 214 H 70-105 MG/DL Calcium Level 8.6 8.5-10.1 MG/DL Corrected Calcium 8.8 8.5-10.1 MG/DL Magnesium Level 2.0 1.6-2.4 MG/DL Total Bilirubin 0.3 0.1-1.0 MG/DL Aspartate Amino Transf (AST/SGOT) 12 5-34 U/L Alanine Aminotransferase (ALT/SGPT) 21 0-55 U/L Alkaline Phosphatase 102 40-136 U/L Total Protein 6.3 L 6.4-8.2 GM/DL Albumin 3.7 3.2-4.5 GM/DL Glucometer 193 H 70-110 MG/DL White Blood Count 11.1 H 4.3-11.0 10^3/uL Red Blood Count 4.41 3.80-5.11 10^6/uL Hemoglobin 13.9 11.5-16.0 g/dL Hematocrit 42 35-52 % Mean Corpuscular Volume 95 80-99 fL Mean Corpuscular Hemoglobin 32 25-34 pg Mean Corpuscular Hemoglobin Concent 33 32-36 g/dL Red Cell Distribution Width 13.2 10.0-14.5 % Platelet Count 362 130-400 10^3/uL Mean Platelet Volume 9.7 9.0-12.2 fL Immature Granulocyte % (Auto) 1 % Neutrophils (%) (Auto) 61 42-75 % Lymphocytes (%) (Auto) 28 12-44 % Monocytes (%) (Auto) 8 0-12 % Eosinophils (%) (Auto) 1 0-10 % Basophils (%) (Auto) 1 0-10 % Neutrophils # (Auto) 6.7 1.8-7.8 10^3/uL Lymphocytes # (Auto) 3.1 1.0-4.0 10^3/uL Monocytes # (Auto) 0.9 0.0-1.0 10^3/uL Eosinophils # (Auto) 0.1 0.0-0.3 10^3/uL Basophils # (Auto) 0.1 0.0-0.1 10^3/uL Immature Granulocyte # (Auto) 0.1 0.0-0.1 10^3/uL Urine Color YELLOW Urine Clarity CLEAR Urine pH 6.0 5-9 Urine Specific [place] 1.025 H 1.016-1.022 Urine Protein NEGATIVE NEGATIVE Urine Glucose (UA) TRACE H NEGATIVE Urine Ketones NEGATIVE NEGATIVE Urine Nitrite NEGATIVE NEGATIVE Urine Bilirubin NEGATIVE NEGATIVE Urine Urobilinogen 0.2 < = 1.0 MG/DL Urine Leukocyte Esterase TRACE H NEGATIVE Urine RBC (Auto) NEGATIVE NEGATIVE Urine RBC NONE /HPF Urine WBC 0-2 /HPF Urine Squamous Epithelial Cells 2-5 /HPF Urine Crystals NONE /LPF Urine Bacteria NEGATIVE /HPF Urine Casts NONE /LPF Urine Mucus NEGATIVE /LPF Urine Culture Indicated NO Test 07/12/20 15:20 Range/Units Glucometer 124 H 70-110 MG/DL My Orders Orders - WILL WHITE Ed Iv/Invasive Line Start (07/12/20 14:07) Ns Iv 1000 Ml (Sodium Chloride 0.9%) (07/12/20 14:15) Acetaminophen Tablet/Caplet (Tylenol T (07/12/20 14:19) Accucheck Stat ONCE (07/12/20 15:18) Vital Signs/I&O 07/12/20 07/12/20 13:41 15:41 Temp 36.2 Pulse 76 74 Resp 16 16 B/P (MAP) 121/60 (80) 108/55 Pulse Ox 97 96 O2 Delivery Room Air Room Air Capillary Refill : Less Than 3 Seconds Blood Pressure Mean: 80 Point of Care Testing Finger Stick Blood Glucose: 193 Progress Note : Time: 13:45 Progress Note Patient seen and evaluated, Accu-Chek 193. Will give Tylenol 650 mg orally for headache, normal saline 1 L per IV. And check labs. 1430 patient resting in bed no complaints at this time. 1520 patient reports headache has improved. No longer feeling weak. Discharge instructions and return precautions reviewed with the patient. Departure Impression Primary Impression: Abnormal glucose Disposition: 01 HOME, SELF-CARE Condition: Improved Departure-Patient Inst. Decision time for Depature: 15:20 Referrals: DIXIE ZELAYA MD (PCP/Family) Primary Care Physician Patient Instructions: Diabetes Type 2 (DC) Add. Discharge Instructions: Continue to take your medications as prescribed. Follow-up with your primary care provider in the next week. If your blood sugar becomes excessively low, try a glass of milk or crackers and peanut butter. Return to the emergency department for new, urgent healthcare needs. All discharge instructions reviewed with patient and/or family. Voiced understanding. Copy Copies To 1: DIXIE ZELAYA MD, AMY ARNP Jul 12, 2020 14:24
[2020-07-12 14:38] LABS: BACTERIA,URINE NEGATIVE /HPF; WBC,URINE 0-2 /HPF
[2020-07-12 15:41] VITALS: BP 108/55
== END 2020-07-12 15:41 | disposition home or self-care (01) ==
LOC: EDUNIT# 13:41 → ER 13:43
DX: R73.09 Other abnormal glucose (principal); I25.2 Old myocardial infarction; E78.00 Pure hypercholesterolemia, unspecified; F32.9 Major depressive disorder, single episode, unspecified; K21.9 Gastro-esophageal reflux disease without esophagitis; G40.909 Epilepsy, unspecified, not intractable, without status epilepticus; F41.9 Anxiety disorder, unspecified; I10 Essential (primary) hypertension; F17.210 Nicotine dependence, cigarettes, uncomplicated; Z95.5 Presence of coronary angioplasty implant and graft; Z88.2 Allergy status to sulfonamides; Z88.1 Allergy status to other antibiotic agents; Z88.8 Allergy status to other drugs, medicaments and biological substances; Z80.9 Family history of malignant neoplasm, unspecified
CPT/HCPCS: 36415; 80053; 81000; 82962; 83735; 85025

== ENCOUNTER → 2020-08-21 | Outpatient (CLI) | payer MEDICARE, MEDICAID ==
[~2020-08-21] MED LIST changes: +RT-ALBUTEROL SULF 2.5 MG/3 ML PRE-MIX VIAL INH ONE
== END ==
LOC: RT 09:22
PROVIDERS: ATTEND Nurse Practitioner Family
DX: J44.9 Chronic obstructive pulmonary disease, unspecified (principal)
CPT/HCPCS: 94060; 94726; 94729

== ENCOUNTER → 2020-08-23 | Outpatient (CLI) | payer MEDICARE, MEDICAID ==
[~2020-08-23] MED LIST changes: -RT-ALBUTEROL SULF 2.5 MG/3 ML PRE-MIX VIAL INH ONE
--- NOTE | 2020-08-23 09:55 | Diagnostic Imaging Report ---
INDICATION: Fall with right wrist pain. TIME OF EXAM: 9:33 AM. TECHNIQUE: Four views of the right wrist were obtained. FINDINGS: The distal radius and ulna are intact. The carpus is intact. The metacarpals are unremarkable. No fractures are seen. IMPRESSION: No acute bony abnormality is detected. Dictated by: Dictated on workstation # [id number]
== END ==
LOC: ORTHO 09:11
PROVIDERS: ATTEND Orthopaedic Surgery
DX: S63.521A Sprain of radiocarpal joint of right wrist, initial encounter (principal); W19.XXXA Unspecified fall, initial encounter
CPT/HCPCS: 73110; G0463; 99202

== ENCOUNTER → 2020-09-13 | Outpatient (CLI) | payer MEDICARE, MEDICAID ==
--- NOTE | 2020-09-13 09:13 | Diagnostic Imaging Report ---
INDICATION: Wrist pain. Four views were obtained. FINDINGS: The alignment is normal. There is no fracture or dislocation. Soft tissues are unremarkable. IMPRESSION: No acute fracture or dislocation Dictated by: Dictated on workstation # [id number]
== END ==
LOC: ORTHO 08:39
PROVIDERS: ATTEND Orthopaedic Surgery
DX: S63.521A Sprain of radiocarpal joint of right wrist, initial encounter (principal); X58.XXXA Exposure to other specified factors, initial encounter
CPT/HCPCS: 20551; 73110

== ENCOUNTER 2020-10-04 10:47 | Day surgery (SDC) | payer MEDICARE, MEDICAID ==
[2020-10-04] VITALS (9 sets, daily range): BP systolic 93–120; BP diastolic 49–63
[~2020-10-04] VITALS: Ht 157 cm; Wt 71.2 kg
[2020-10-04] MEDS ORDERED: NS IV 1000 ML 1,000 ML IV SCH ×2 (11:15→14:30)
[2020-10-04] MEDS ORDERED: LIDOCAINE 1% INJ 20 ML 20 ML VIAL ONE (11:19)
[2020-10-04] MEDS ORDERED: NS IV 1000 ML 1,000 ML ONE (11:19)
[2020-10-04] MEDS ORDERED: HEParin (CATH LAB) 2,000 ML IV ONE (11:19)
[2020-10-04 11:47] LABS: HEMATOCRIT 46 % (35-52); HEMOGLOBIN 15.9 g/dL (11.5-16.0); MEAN CORPUSCULAR HEMOGLOBIN 32 pg (25-34); MEAN CORPUSCULAR HGB CONC 34 g/dL (32-36); MEAN CORPUSCULAR VOLUME 92 fL (80-99); MEAN PLATELET VOLUME 9.9 fL (9.0-12.2); PLATELET COUNT 336 10^3/uL (130-400); WHITE BLOOD COUNT 10.5 10^3/uL (4.3-11.0)
--- NOTE | 2020-10-04 11:50 | Diagnostic Imaging Report ---
Indication: Chest pain Portable chest 11:23 AM Heart size and pulmonary vascularity are normal. Lungs are clear. There are no effusions or pneumothoraces. IMPRESSION: No acute abnormalities in the chest Dictated by: Dictated on workstation # [id number]
[2020-10-04 12:04] LABS: ALBUMIN 3.9 GM/DL (3.2-4.5); CHLORIDE 110 MMOL/L (98-107); POTASSIUM 3.7 MMOL/L (3.6-5.0); SODIUM 143 MMOL/L (135-145)
[2020-10-04 12:05] LABS: CALCIUM 9.5 MG/DL (8.5-10.1)
[2020-10-04 12:06] LABS: PROTHROMBIN TIME PATIENT 13.1 SEC (12.2-14.7); TOTAL PROTEIN 6.9 GM/DL (6.4-8.2); TRIGLYCERIDES 272 MG/DL (<150); VLDL CHOLESTEROL 54 MG/DL (5-40)
[2020-10-04] MEDS ORDERED: PANT40TA52 PO (12:06)
[2020-10-04] MEDS ORDERED: LATA7.5D OP (12:06)
[2020-10-04] MEDS ORDERED: RT-ALBUINH IH (12:06)
[2020-10-04] MEDS ORDERED: PRAZ1CAP2 PO (12:06)
[2020-10-04] MEDS ORDERED: FLUT1DIS26 IH (12:06)
[2020-10-04] MEDS ORDERED: BREX1TAB PO (12:06)
[2020-10-04] MEDS ORDERED: CYCL10TA9 PO (12:06)
[2020-10-04] MEDS ORDERED: INSU100C3 SQ (12:06)
[2020-10-04] MEDS ORDERED: CYCL1DRO OP (12:06)
[2020-10-04] MEDS ORDERED: NITR0.4T42 SL (12:06)
[2020-10-04] MEDS ORDERED: ALB0.5V INH (12:06)
[2020-10-04 12:07] LABS: CARBON DIOXIDE 24 MMOL/L (21-32); GLUCOSE 124 MG/DL (70-105)
[2020-10-04 12:08] LABS: BILIRUBIN,TOTAL 0.2 MG/DL (0.1-1.0)
[2020-10-04 12:10] LABS: ALKALINE PHOSPHATASE 141 U/L (40-136); CREATININE SERUM 0.93 MG/DL (0.60-1.30); GFR ESTIMATED > 60
[2020-10-04 12:11] LABS: BUN/CREATININE RATIO 16; CHOLESTEROL 207 MG/DL (< 200)
[2020-10-04 12:12] LABS: HDL CHOLESTEROL 38 MG/DL (40-60)
[2020-10-04 12:13] LABS: ALANINE AMINOTRANSFERASE 32 U/L (0-55)
[2020-10-04] MEDS ORDERED: ONDANSETRON 4 MG/2 ML (SDV) Z0FRAN ONE (12:17)
[2020-10-04] MEDS ORDERED: ONDANSETRON 4 MG/2 ML (SDV) Z0FRAN IVP ONE (12:30)
[2020-10-04] MEDS ORDERED: fentaNYL INJ 100 MCG/2 ML AMP ONE (13:32)
[2020-10-04] MEDS ORDERED: MIDAZOLAM 5 MG/5 ML (VERSED) VIAL ONE (13:32)
--- NOTE | 2020-10-04 14:17 | Conscious Sedation/ASA ---
Conscious Sedation Pre-Proced Time 14:17 ASA Score 3 For ASA 3 and 4: Consider anesthesia and medical clearance. Also, for patients with a history of failed moderate sedation consider anesthesia. Airway Lungs Heart ASA score ASA 1: a normal healthy patient ASA 2: a patient with a mild systemic disease (mid diabetes, controlled hypertension, obesity x ASA 3: a patient with a severe systemic disease that limits activity (angina, COPD, prior Myocardial infarction) ASA 4: a patient with an incapacitating disease that is a constant threat to life (CHF, renal failure) ASA 5: a moribund patient not expected to survive 24 hrs. (ruptured aneurysm) ASA 6: a declared brain- patient whose organs are being harvested. For emergent operations, add the letter E after the classification Mallampati Classification Grade 3 Sedation Plan Analgesia, Amnesia, Plan communicated to team members, Discussed options with patient/fam, Discussed risks with patient/fam The patient is an appropriate candidate to undergo the planned procedure, sedation, and anesthesia. The patient immediately re-assessed prior to indication. AKBAR WILSON MD Oct 04, 2020 14:17
--- NOTE | 2020-10-04 14:19 | Discharge Inst-Post CATH ---
Discharge Inst-CATH/EP Problems Reviewed?: Yes Post Cardiac Cath/EP D/C Inst Follow Up/Plan Appointment with Dr. Dobbins's office in 2 to 4 weeks <b>CARDIAC CATH/EP PROCEDURE DISCHARGE INSTRUCTIONS</b> ACTIVITY * Go Home directly and rest. * Limit activity of the leg (or wrist if it was used) for 7 days including aer obics, swimming, jogging, bicycling, etc. * Restrict stair-climbing for 7 days if possible, if not, climb up with your non-cath leg, then bring together on the same step. * Avoid lifting, pushing, pulling or excessive movement of the affected extremi ty for 7 days. * Customary sexual activity may be resumed after 2 days-use caution not to use a position that strains or causes pain to the affected extremity. * No driving for 24 hours. * NO SMOKING. * Avoid straining for bowel movements for 7 days. * Gentle walking on level ground is allowed. * Returning to work will depend on the type of procedure and the results. Your doctor will discuss this with you. CALL YOUR DOCTOR FOR ANY OF THE FOLLOWING: *If bleeding from the puncture site occurs- Apply gentle pressure to site with clean cloth and call your doctor or EMS. * If a knot or lump forms under the skin, increases in size, or causes pain. * If bruising appears to be worsening or moving further down your leg instead of disappearing. * Temperature above 101 F. CARE OF YOUR GROIN INCISION; * Bruising or purple discoloration of the skin near the puncture site is common. * You may shower only, no bathtub bathing for 5 days. Be careful to avoid slipping as your leg may feel stiff. * If a closure device was used on your femoral artery, please see the attached guide regarding care of the device and your leg. * Leave dressing on FOR 24 hours. CARE OF YOUR WRIST INCISION; * Bruising or purple discoloration of the skin near the puncture site is common. * You may shower. * DO NOT submerge wrist. * Leave dressing on FOR 24 hours. AKBAR DOBBINS MD Oct 04, 2020 14:19
--- NOTE | 2020-10-04 14:23 | Cardiac Cath Report ---
Cardiac Cath Report Physician (s)/Associate Spa Director (s) Physician AKBAR WILSON MD Pre-Procedure Diagnosis Pre-Procedure Diagnosis: Chest pain, coronary artery disease Post-Procedure Note Procedure Start Date: Oct 04, 2020 Name of Procedure: Left heart catheterization Findings/Procedure Note PROCEDURE NOTE: 60-year-old lady with history of coronary artery disease multiple stenting, has been having chest pain, scheduled for cardiac catheterization possible PTCA. After explaining the procedure to the patient, all pros and cons were explained, all questions were answered. The patient signed the consent and then she was placed on the cardiac catheterization laboratory. Groin was prepped SL fashion local anesthesia was used. Sheath placed in the right femoral artery. Kb right and left catheter were used to access the coronary system. Kb right was prolapsed to the left ventricular cavity, pressure was measured no left ventriculogram was done. At the end of the procedure the sheath was removed. Closure device was deployed FINDINGS: Hemodynamics LV 112/18, end-diastolic pressure of 18 Aorta 106/59 mean of 76 ANATOMY: Left Main has a patent stent extending to the circumflex artery with no obstructive disease Left Anterior Descending has moderate ostial stenosis nonobstructive disease Left Circumflex has a patent stent in the proximal/ostial segment extending to the left main with good flow distally Right Coronary Artery is small in size nondominant artery with no obstructive disease LV Gram was not done, pressure was measured CONCLUSION: 1. Patent stent in the left main extending to the circumflex artery that is a dominant artery with excellent flow distally 2. Mild to moderate disease in the LAD nonobstructive disease, ostial LAD has about 40 to 50% stenosis nonobstructive disease 3. Mildly elevated left ventricular end-diastolic pressure DISCUSSION AND RECOMMENDATION: Continue to maximize medical therapy Anesthesia Type: Conscious Sedation Estimated blood loss (mL): 25 ml Contrast Amount: 30 ml Total Radiation Dose: 207 mGy Post-Procedure Diagnosis Post-operative diagnosis: Chest pain Coronary artery disease Hypertension Hyperlipidemia AKBAR WILSON MD Oct 04, 2020 14:23
[2020-10-04] MEDS ORDERED: PATIENT MAY USE OWN MEDS, ALL PO SCH (14:30)
== END 2020-10-04 18:30 ==
LOC: CATH 10:47
PROVIDERS: ATTEND Internal Medicine Cardiovascular Disease
DX: R07.9 Chest pain, unspecified (principal); I25.10 Atherosclerotic heart disease of native coronary artery without angina pectoris; E78.5 Hyperlipidemia, unspecified; I25.2 Old myocardial infarction; F41.9 Anxiety disorder, unspecified; F43.10 Post-traumatic stress disorder, unspecified; E11.22 Type 2 diabetes mellitus with diabetic chronic kidney disease; I11.0 Hypertensive heart disease with heart failure; M06.9 Rheumatoid arthritis, unspecified; N28.9 Disorder of kidney and ureter, unspecified; F32.9 Major depressive disorder, single episode, unspecified; K58.9 Irritable bowel syndrome, unspecified; D72.829 Elevated white blood cell count, unspecified; J43.9 Emphysema, unspecified; D64.9 Anemia, unspecified; F17.210 Nicotine dependence, cigarettes, uncomplicated; Z79.899 Other long term (current) drug therapy; Z79.4 Long term (current) use of insulin; Z99.81 Dependence on supplemental oxygen
CPT/HCPCS: 36415; 71045; 80053; 80061; 85027; 85610; 85730; 87081; 93458

== ENCOUNTER 2021-08-10 16:59 | Emergency (ER) | payer MEDICARE, MEDICAID ==
[~2021-08-10] VITALS: Ht 157.5 cm; Wt 68.5 kg
[~2021-08-10 16:59] MED LIST changes: +ALB0.5V INH; +BREX1TAB PO; +CLIN-144 PO; -CLIN300C12 PO; +CYCL10TA25 PO; +CYCL1DRO OP; -FENO134C PO; +FENO134C21 PO; +FLUT1DIS26 IH; +INSU100C3 SQ; +LATA7.5D OP; +NITR0.4T42 SL; +POTA-169 PO; -POTA20TA8 PO; +PRAZ1CAP2 PO; -VENL150C PO; +VENL150C3 PO
[2021-08-10] MEDS ORDERED: morphine INJ 10 MG/ML 1ML (SYR OR VIAL) IV STA (17:07)
[2021-08-10] MEDS ORDERED: NS IV 1000 ML 1,000 ML IV STA (17:09)
[2021-08-10 17:18] LABS: BASOPHILS # (AUTO) 0.1 10^3/uL (0.0-0.1); BASOPHILS % (AUTO) 1 % (0-10); EOSINOPHILS # (AUTO) 0.2 10^3/uL (0.0-0.3); EOSINOPHILS % (AUTO) 2 % (0-10); HEMATOCRIT 46 % (35-52); LYMPHOCYTES % (AUTO) 35 % (12-44); MEAN CORPUSCULAR HEMOGLOBIN 32 pg (25-34); MEAN CORPUSCULAR HGB CONC 35 g/dL (32-36); MEAN CORPUSCULAR VOLUME 91 fL (80-99); MONOCYTES # (AUTO) 1.1 10^3/uL (0.0-1.0); MONOCYTES % (AUTO) 10 % (0-12); NEUTROPHILS % (AUTO) 52 % (42-75); PLATELET COUNT 456 10^3/uL (130-400); WHITE BLOOD COUNT 11.4 10^3/uL (4.3-11.0)
[2021-08-10 17:18] LABS: BILIRUBIN,URINE NEGATIVE (NEGATIVE); CLARITY,URINE CLEAR; COLOR,URINE YELLOW; GLUCOSE, URINE (UA) NEGATIVE (NEGATIVE); KETONES,URINE NEGATIVE (NEGATIVE); LEUKOCYTE ESTERASE ,URINE NEGATIVE (NEGATIVE); NITRITE,URINE NEGATIVE (NEGATIVE); PROTEIN,URINE NEGATIVE (NEGATIVE)
[2021-08-10 17:26] LABS: BACTERIA,URINE TRACE /HPF
--- NOTE | 2021-08-10 17:27 | ED Chest Pain ---
General Chief Complaint: Chest Pain Stated Complaint: CHEST PAIN Nursing Triage Note: PT BROUGHT IN BY [facility] FROM HOME WITH COMPLAINT OF CP FOR TWO DAYS. PT IS ALERT BUT LETHARGIC. PT GIVEN 1 NITRO AND 324 BABY ASA BY EMS, Source: patient Exam Limitations: no limitations History of Present Illness Date Seen by Provider: August 10, 2021 Time Seen by Provider: 17:22 Initial Comments Patient is a 60-year-old female with a history of diabetes, coronary artery disease, COPD presents ED with right-sided chest pain. Pain started 2 days ago and has been constant. Described as crushing with radiation to right arm and right neck. Hisotry of similar type pain. Associate shortness of breath with nausea. Generalized weakness with a mild cough. Increased lethargy at home. According to EMS family states patient usually gets up and walks around without any difficulties. She has been wanting to set around and not as active over the past few days. Patient denies any urinary symptoms abdominal pain. She did develop a headache after sublingual nitro provided by EMS in route. Patient Was given 324 of aspirin in route. Patient denies any vomiting, diarrhea, visual changes, fever, neck pain, sore throat, unilateral muscle weakness. She states she feels weak throughout her extremities. Allergies and Home Medications Allergies Coded Allergies: sulfamethoxazole (Verified Allergy, Intermediate, VOMITTING/MIGRAINE, 01/26/18) trimethoprim (Verified Allergy, Intermediate, VOMITTING/MIGRAINE, 01/26/18) pentazocine (Unverified Adverse Reaction, Mild, N/V, HEAD ACHE, 01/26/18) Patient Home Medication List Home Medication List Reviewed: Yes Acetaminophen (Acetaminophen) 500 Mg Tablet, 1,000 MG PO Q6H PRN for PAIN-MILD, (Reported) Entered as Reported by: CARINE YOUNG on 05/13/16 1357 Albuterol Sulfate (Proair Hfa) 1 Puff Puff, 2 PUFF IH Q4H, (Reported) Entered as Reported by: MAICOL GUTIERREZ on 10/04/20 1206 Albuterol Sulfate (Albuterol Sulfate) 2.5 Mg/0.5 Ml Vial.neb, 2.5 MG INH Q4H, (Reported) Entered as Reported by: MAICOL GUTIERREZ on 10/04/20 1206 Brexpiprazole (Rexulti) 1 Mg Tablet, 1 MG PO DAILY, (Reported) Entered as Reported by: MAICOL GUTIERREZ on 10/04/20 120 Cyclobenzaprine HCl (Cyclobenzaprine HCl) 10 Mg Tablet, 10 MG PO PRN, (Reported) Entered as Reported by: MAICOL GUTIERREZ on 10/04/20 120 Cyclosporine (Restasis) 1 Each Droperette, 1 EACH OP DAILY, (Reported) Entered as Reported by: MAICOL GUTIERREZ on 10/04/20 120 Fluticasone/Salmeterol (Advair 250-50 Diskus) 1 Each Blst.w.dev, 1 EACH IH BID, (Reported) Entered as Reported by: MAICOL GUTIERREZ on 10/04/20 120 Gabapentin (Neurontin) 300 Mg Capsule, 300 MG PO BID, (Reported) Entered as Reported by: DIXIE ASH on 06/05/20 1627 Insulin Aspart (Novolog) 300 Units/3 Ml Cartridge, 15 UNITS SQ AC, (Reported) Entered as Reported by: MAICOL GUTIERREZ on 10/04/20 120 Latanoprost/Pf (Latanoprost 0.005% Eye Drop) 7.5 Ml Drops, 7.5 ML OP HS, (Reported) Entered as Reported by: MAICOL GUTIERREZ on 10/04/20 120 Metoprolol Tartrate (Metoprolol Tartrate) 25 Mg Tablet, 25 MG PO DAILY, (Reporte d) Entered as Reported by: CARINE YOUNG on 11/27/15 1722 Nitroglycerin (Nitroglycerin) 0.4 Mg Tab.subl, 0.4 MG SL Q4M, (Reported) Entered as Reported by: MAICOL GUTIERREZ on 10/04/20 120 Pantoprazole Sodium (Pantoprazole Sodium) 40 Mg Tablet.dr, 40 MG PO DAILY, (Reported) Entered as Reported by: MAICOL GUTIERREZ on 10/04/20 120 Prazosin HCl (Prazosin HCl) 1 Mg Capsule, 1 MG PO DAILY, (Reported) Entered as Reported by: MAICOL GUTIERREZ on 10/04/20 120 Sacubitril/Valsartan (Entresto 24 mg-26 mg Tablet) 1 Each Tablet, 1 TAB PO BID, (Reported) Entered as Reported by: STEPHEN HORNE on 03/16/18 1243 Venlafaxine HCl (Effexor Xr) 150 Mg Cap.er.24h, 150 MG PO HS, (Reported) Entered as Reported by: DIXIE ASH on 06/05/20 1636 Venlafaxine HCl (Effexor Xr) 150 Mg Cap.er.24h, 150 MG PO DAILY Prescribed by: SANTOSH GENAO on 08/10/212038 Review of Systems Review of Systems Constitutional: No chills, No diaphoresis; malaise, weakness Respiratory: Cough, Shortness of Air Cardiovascular: Chest Pain; Denies Edema, Denies Irregular Heart Rate, Denies Palpitations Gastrointestinal: Denies Abdominal Pain, Denies Diarrhea; Nausea; Denies Vomiting Genitourinary: Denies Burning, Denies Discharge Musculoskeletal: No back pain, No joint pain Skin: No change in color, No change in hair/nails All Other Systems Reviewed Negative Unless Noted: Yes Past Yztvjlv-Uvudqk-Wzhwpp Hx Patient Social History Smoking Status: Unknown if Ever Smoked Smokeless Tobacco Frequency: User Current Status Unk Substance use?: Unable to obtain Alcohol Use?: Unable to obtain Pt feels they are or have been: No Immunizations Up To Date Tetanus Booster (TDap): More than 5yrs PED Vaccines UTD: No Seasonal Allergies Seasonal Allergies: Yes Past Medical History Surgeries: Yes (stents x3, colostomy then reversal, ) Abdominal, Appendectomy, Bowel Surgery, Breast, Cardiac, Coronary Stent, Eye Surgery, Gallbladder, Hysterectomy, Oophorectomy Respiratory: Yes (RESPIRATORY FAILURE ON 2013) Asthma, Pneumonia, Chronic Bronchitis, Pulmonary Embolism, COPD Currently Using CPAP: No Currently Using BIPAP: No Cardiac: Yes (STENT PLACED OCTOBER 2014 AFTER [place]) Coronary Artery Disease, Heart Attack, High Cholesterol, Hypertension Neurological: Yes (SEIZURE: 10 years ago last one) Seizure Disorder 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 Disorders: Yes (CERVICAL DYSPLASIA--S/P HYST/BSO) 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 Disorders: Denies [employer] History: Hysterectomy Sexually Transmitted Disease: No HIV/AIDS: No Genitourinary: Yes Kidney Stones, Renal Failure Gastrointestinal: Yes Gastroesophageal Reflux, Diverticulosis, Hiatal Hernia, Irritable Bowel Musculoskeletal: Yes Osteoporosis, Arthritis, Fibromyalgia, Rheumatoid Arthritis Endocrine: Yes Diabetes, Non-Insulin dep HEENT: Yes Glaucoma Loss of Vision: Denies Hearing Impairment: Denies Cancer: Yes (cervical) Cervical Did You Recieve Any Treatments: No Psychosocial: Yes Anxiety, Bipolar, Depression Integumentary: Yes (HX OF SHINGLES) Blood Disorders: Yes (hx of anemia) Adverse Reaction/Blood Tranf: No Family Medical History CANCER 19 MOTHER (PATIENT DOES NOT KNOW LOCATION) Cancer, Other Conditions/Hx Physical Exam Vital Signs Vital Signs - First Documented 08/10/21 08/10/21 16:59 20:53 Temp 37.0 Pulse 109 Resp 16 B/P (MAP) 139/61 (87) Pulse Ox 96 O2 Delivery Room Air Capillary Refill : Less Than 3 Seconds Height, Weight, BMI Height: 5'2.00" Weight: 164lbs. 0.0oz. [id number]; 27.00 BMI Method:Stated General Appearance: WD/WN, Other HEENT: PERRL/EOMI, TMs Normal, Normal ENT Inspection, Pharynx Normal Neck: Full Range of Motion, Normal Inspection, Non Tender Respiratory: Chest Non Tender, Crackles, Wheezing Cardiovascular: No Gallop, No JVD, No Murmur, Tachycardia Gastrointestinal: Normal Bowel Sounds, No Organomegaly, No Pulsatile Mass, Non Tender, Soft Neurologic/Psychiatric: Alert, Oriented x3, Normal Mood/Affect, Other (Generalized weakness) Skin: Normal Color, Warm/Dry Procedures/Interventions Date of ETT Placement: Feb 11, 2016 Time of ETT Placement: 1341 Progress/Results/Core Measures Results/Orders Lab Results Laboratory Tests Test 08/10/21 17:05 08/10/21 17:10 08/10/21 20:04 Range/Units White Blood Count 11.4 H 4.3-11.0 10^3/uL Red Blood Count 5.06 3.80-5.11 10^6/uL Hemoglobin 16.0 11.5-16.0 g/dL Hematocrit 46 35-52 % Mean Corpuscular Volume 91 80-99 fL Mean Corpuscular Hemoglobin 32 25-34 pg Mean Corpuscular Hemoglobin Concent 35 32-36 g/dL Red Cell Distribution Width 12.2 10.0-14.5 % Platelet Count 456 H 130-400 10^3/uL Mean Platelet Volume 10.0 9.0-12.2 fL Immature Granulocyte % (Auto) 1 % Neutrophils (%) (Auto) 52 42-75 % Lymphocytes (%) (Auto) 35 12-44 % Monocytes (%) (Auto) 10 0-12 % Eosinophils (%) (Auto) 2 0-10 % Basophils (%) (Auto) 1 0-10 % Neutrophils # (Auto) 6.0 1.8-7.8 10^3/uL Lymphocytes # (Auto) 4.0 1.0-4.0 10^3/uL Monocytes # (Auto) 1.1 H 0.0-1.0 10^3/uL Eosinophils # (Auto) 0.2 0.0-0.3 10^3/uL Basophils # (Auto) 0.1 0.0-0.1 10^3/uL Immature Granulocyte # (Auto) 0.1 0.0-0.1 10^3/uL Prothrombin Time 13.2 12.2-14.7 SEC INR Comment 1.0 0.8-1.4 Activated Partial Thromboplast Time 27 24-35 SEC D-Dimer 0.60 H 0.00-0.49 UG/ML Sodium Level 141 135-145 MMOL/L Potassium Level 3.5 L 3.6-5.0 MMOL/L Chloride Level 108 H 98-107 MMOL/L Carbon Dioxide Level 21 21-32 MMOL/L Anion Gap 12 5-14 MMOL/L Blood Urea Nitrogen 16 7-18 MG/DL Creatinine 0.92 0.60-1.30 MG/DL Estimat Glomerular Filtration Rate 71 BUN/Creatinine Ratio 17 Glucose Level 146 H 70-105 MG/DL Calcium Level 10.5 H 8.5-10.1 MG/DL Corrected Calcium 10.3 H 8.5-10.1 MG/DL Magnesium Level 1.8 1.6-2.4 MG/DL Total Bilirubin 0.3 0.1-1.0 MG/DL Aspartate Amino Transf (AST/SGOT) 24 5-34 U/L Alanine Aminotransferase (ALT/SGPT) 34 0-55 U/L Alkaline Phosphatase 107 40-136 U/L Creatine Kinase MB 1.4 <6.6 NG/ML Myoglobin 32.0 10.0-92.0 NG/ML Troponin I < 0.028 < 0.028 <0.028 NG/ML B-Type Natriuretic Peptide 24.3 <100.0 PG/ML Total Protein 7.5 6.4-8.2 GM/DL Albumin 4.2 3.2-4.5 GM/DL Lipase 39 8-78 U/L Urine Color YELLOW Urine Clarity CLEAR Urine pH 6.0 5-[address] [place] 1.020 1.016-1.022 Urine Protein NEGATIVE NEGATIVE Urine Glucose (UA) NEGATIVE NEGATIVE Urine Ketones NEGATIVE NEGATIVE Urine Nitrite NEGATIVE NEGATIVE Urine Bilirubin NEGATIVE NEGATIVE Urine Urobilinogen 0.2 < = 1.0 MG/DL Urine Leukocyte Esterase NEGATIVE NEGATIVE Urine RBC (Auto) TRACE-I H NEGATIVE Urine RBC 2-5 H /HPF Urine WBC NONE /HPF Urine Squamous Epithelial Cells 2-5 /HPF Urine Crystals NONE /LPF Urine Bacteria TRACE /HPF Urine Casts NONE /LPF Urine Mucus SMALL H /LPF Urine Culture Indicated NO My Orders Orders - CURRY JOLLEY PA Ekg Tracing (08/10/21 17:01) Cbc With Automated Diff (08/10/21:07) Magnesium (08/10/21:07) Chest 1 View, Ap/Pa Only (08/10/21 17:07) Ekg Tracing (08/10/21:07) Comprehensive Metabolic Panel (08/10/21:07) Myoglobin Serum (08/10/21 17:07) Protime With Inr (08/10/21 17:07) Partial Thromboplastin Time (08/10/21 17:07) O2 (08/10/21 17:07) Monitor-Rhythm Ecg Trace Only (08/10/21 17:07) Ed Iv/Invasive Line Start (08/10/21 17:07) Creatine Kinase Mb (08/10/21 17:07) Lipase (08/10/21 17:07) Bnp [place] (08/10/21 17:07) Troponin I [place] (08/10/21 17:07) Morphine Injection (Morphine Injection (08/10/21 17:07) Ua Culture If Indicated (08/10/21 17:07) Ct Head Wo (08/10/21 17:07) Ns Iv 1000 Ml (Sodium Chloride 0.9%) (08/10/21 17:09) Fibrin Degradation Products (08/10/21 17:41) Ct Angio Chest W (08/10/21 17:54) Iohexol Injection (Omnipaque 350 Mg/Ml 1 (08/10/21 18:15) Ns (Ivpb) (Sodium Chloride 0.9% Ivpb Bag (08/10/21 18:15) Sodium Chloride Flush (Catheter Flush Sy (08/10/21 18:15) Venlafaxine Immediate Release (Effexor T (08/10/21 18:30) Venlafaxine Xr Capsule (Effexor Xr Capsu (08/10/21 18:30) Ondansetron Injection (Zofran Injectio (08/10/21 18:45) Acetaminophen Tablet (Tylenol Tablet) (08/10/21 19:15) Troponin I [place] (08/10/21 20:08) Medications Given in ED Vital Signs/I&O 08/10/21 08/10/21 16:59 20:53 Temp 37.0 Pulse 109 82 Resp 16 15 B/P (MAP) 139/61 (87) 119/91 Pulse Ox 96 96 O2 Delivery Room Air Room Air 08/11/21 00:00 Intake Total 1000 ml Balance 1000 ml Blood Pressure Mean: 87 Departure Communication (PCP) After talking with patient she has not slept over the past 2 days secondary to taking care of her disabled child. Patient appears tired fatigued and weak. Right-sided chest pain over the past 2 days. EKG without evidence of ST elevation or depression. Similar EKG from previous results. Initial troponin BMP negative. 3-hour troponin negative. Lab work shows slightly elevated white blood count 11.4. Urinalysis negative for infection. She had a slight elevated D-dimer with a history of PE. CT angio of the chest was negative for PE, dissection, pneumonia, pneumothorax. Patient is feeling much better at this time. Was given Tylenol for headache. She had no focal neural deficits. Patient was observed here in the ED. Discussed patient with Dr. Dobbins regarding the results. He felt comfortable patient being discharged and follow-up outpatient Mor for this chest pain. Chest pain completely resolved. Was given 324 aspirin by EMS with nitro. Was given a dose of morphine here with resolution of pain. Unclear if this is cardiac etiology versus other. Patient slept most of her her visit. Concerned that she is not getting enough rest. She was asking for Effexor which I gave her dose here as she has been out over the past 2 days. She was asking for refill which I did provide. If any worsening symptoms return back to ED for further evaluation. Patient agrees with plan of action Impression Primary Impression: Chest pain Disposition: HOME, SELF-CARE Condition: Stable Departure-Patient Inst. Decision time for Depature: 20:39 Referrals: DIXIE ZELAYA MD (PCP/Family) Primary Care Physician Patient Instructions: Chest Pain, Adult ED Add. Discharge Instructions: Recommend following up outpatient only with Dr. Dobbins. If any worsening symptoms return back to ED for further evaluation. All discharge instructions reviewed with patient and/or family. Voiced u nderstanding. Scripts Venlafaxine HCl (Effexor Xr) 150 Mg Cap.er.24h 150 MG PO DAILY, #20 CAP Prov: CURRY JOLLEY 08/10/21 CURRY JOLLEY August 10, 2021 17:27
--- NOTE | 2021-08-10 17:31 | Diagnostic Imaging Report ---
INDICATION: Chest pain. COMPARISON: 10/04/2020. TECHNIQUE: Single radiograph of the chest dated 08/10/2021. FINDINGS: The cardiac silhouette is within normal limits in size. No significant pulmonary vascular congestion. The lungs are hyperinflated though clear of focal pulmonary opacity. No pleural effusion. No pneumothorax. No acute osseous abnormality. IMPRESSION: Background pulmonary hyperinflation without superimposed acute cardiopulmonary abnormality. Dictated by: Dictated on workstation # [id number]
[2021-08-10 17:34] LABS: ALBUMIN 4.2 GM/DL (3.2-4.5); PROTHROMBIN TIME PATIENT 13.2 SEC (12.2-14.7)
[2021-08-10 17:35] LABS: POTASSIUM 3.5 MMOL/L (3.6-5.0)
[2021-08-10 17:36] LABS: CALCIUM 10.5 MG/DL (8.5-10.1)
[2021-08-10 17:37] LABS: TOTAL PROTEIN 7.5 GM/DL (6.4-8.2)
[2021-08-10 17:39] LABS: BILIRUBIN,TOTAL 0.3 MG/DL (0.1-1.0)
[2021-08-10 17:41] LABS: CREATININE SERUM 0.92 MG/DL (0.60-1.30)
[2021-08-10 17:43] LABS: MAGNESIUM 1.8 MG/DL (1.6-2.4)
[2021-08-10 17:51] LABS: CREATINE KINASE MB 1.4 NG/ML (<6.6)
[2021-08-10] MEDS ORDERED: CATHETER FLUSH 10 ML SYR IV PRN (18:15)
[2021-08-10] MEDS ORDERED: IOHEXOL 350 MG/ML 100 ML (OMNIPAQUE 350) VIAL IV ONE (18:15)
[2021-08-10] MEDS ORDERED: NS 100 ML (IVPB) BAG IV ONE (18:15)
[2021-08-10] MEDS ORDERED: VENlafaxine XR 75 MG (EFFEXOR XR) CAP PO ONE (18:30)
[2021-08-10] MEDS ORDERED: VENlafaxine 75 MG (EFFEXOR) TAB PO ONE (18:30)
[2021-08-10] MEDS ORDERED: ONDANSETRON 4 MG/2 ML (SDV) Z0FRAN IVP ONE (18:45)
--- NOTE | 2021-08-10 19:10 | Diagnostic Imaging Report ---
PROCEDURE: CT angiography of the chest with contrast. TECHNIQUE: Multiple contiguous axial images were obtained through the chest after uneventful bolus administration of intravenous contrast. 3D reconstructed CTA MIP acquisitions were also performed. Auto Exposure Controls were utilized during the CT exam to meet ALARA standards for radiation dose reduction. INDICATION: Chest pain. History of coronary artery disease. COMPARISON: 09/30/2019. FINDINGS: This helical CT pulmonary angiogram is diagnostic to the subsegmental level branches of the pulmonary artery and demonstrates no pulmonary emboli. The heart and great vessels are unremarkable. There is no pericardial effusion. There is no axillary, mediastinal, or hilar adenopathy. No focal consolidation. No suspicious pulmonary nodules or pulmonary masses. No central endobronchial obstructing lesions. Calcified granulomas are noted. No pleural effusion or pneumothorax. Osseous structures appear normal. There is hepatic steatosis. IMPRESSION: 1. No acute pulmonary embolus. Negative CT chest. 2. Hepatic steatosis. Dictated by: Dictated on workstation # [id number]
[2021-08-10] MEDS ORDERED: ACETAMINOPHEN 500 MG TAB (TYLENOL) PO ONE (19:15)
[2021-08-10] MEDS ORDERED: VENL150C3 PO (20:39)
[2021-08-10 20:53] VITALS: BP 119/91
== END 2021-08-10 20:53 | disposition home or self-care (01) ==
LOC: EDUNIT# 16:59 → ER 17:01
DX: R07.89 Other chest pain (principal); D72.829 Elevated white blood cell count, unspecified; R79.89 Other specified abnormal findings of blood chemistry; I25.2 Old myocardial infarction; F17.220 Nicotine dependence, chewing tobacco, uncomplicated; Z86.711 Personal history of pulmonary embolism; Z95.5 Presence of coronary angioplasty implant and graft
CPT/HCPCS: 36415; 71045; 71275; 80053; 81000; 82553; 83690; 83735; 83874; 83880; 84484; 85025; 85379; 85610; 85730; 93041

== ENCOUNTER → 2021-08-15 | Outpatient (CLI) | payer MEDICARE, MEDICAID | LOC: ORTHO 08:23 | PROVIDERS: ATTEND Orthopaedic Surgery | DX: M65.4 Radial styloid tenosynovitis [de Quervain] (principal); J44.9 Chronic obstructive pulmonary disease, unspecified; I25.10 Atherosclerotic heart disease of native coronary artery without angina pectoris; F41.8 Other specified anxiety disorders; E11.9 Type 2 diabetes mellitus without complications; I11.9 Hypertensive heart disease without heart failure; E78.00 Pure hypercholesterolemia, unspecified | CPT/HCPCS: 20551; G0463 ==

== ENCOUNTER 2022-06-07 18:44 | Inpatient (IN) | payer MEDICARE, MEDICAID ==
[~2022-06-07] VITALS: Ht 157.5 cm; Wt 67.2 kg
[~2022-06-07 18:44] MED LIST changes: +ALBU8.5H6 IH; +CLOP-31 PO; -CLOP75TA69 PO; +LEVO750T PO; -LEVO750T39 PO; -RT-ALBUINH IH
[2022-06-07 18:55] LABS: BASOPHILS # (AUTO) 0.1 10^3/uL (0.0-0.1); BASOPHILS % (AUTO) 1 % (0-10); EOSINOPHILS # (AUTO) 0.2 10^3/uL (0.0-0.3); EOSINOPHILS % (AUTO) 1 % (0-10); HEMATOCRIT 41 % (35-52); HEMOGLOBIN 14.9 g/dL (11.5-16.0); LYMPHOCYTES # (AUTO) 4.8 10^3/uL (1.0-4.0); LYMPHOCYTES % (AUTO) 22 % (12-44); MEAN CORPUSCULAR HEMOGLOBIN 32 pg (25-34); MEAN CORPUSCULAR HGB CONC 36 g/dL (32-36); MEAN CORPUSCULAR VOLUME 89 fL (80-99); MEAN PLATELET VOLUME 9.7 fL (9.0-12.2); MONOCYTES # (AUTO) 1.7 10^3/uL (0.0-1.0); MONOCYTES % (AUTO) 8 % (0-12); NEUTROPHILS # (AUTO) 15.1 10^3/uL (1.8-7.8); NEUTROPHILS % (AUTO) 68 % (42-75); PLATELET COUNT 486 10^3/uL (130-400); WHITE BLOOD COUNT 22.2 10^3/uL (4.3-11.0)
[2022-06-07] MEDS ORDERED: ONDANSETRON 4 MG/2 ML (SDV) Z0FRAN IVP ONE (19:00)
[2022-06-07] MEDS ORDERED: LACTATED RINGERS 1,000 ML IV ONE ×2 (19:00→21:00)
[2022-06-07 19:05] LABS: POTASSIUM 2.9 MMOL/L (3.6-5.0)
[2022-06-07 19:06] LABS: CALCIUM 9.7 MG/DL (8.5-10.1)
[2022-06-07 19:08] LABS: TOTAL PROTEIN 7.4 GM/DL (6.4-8.2)
[2022-06-07 19:09] LABS: BILIRUBIN,TOTAL 0.3 MG/DL (0.1-1.0)
[2022-06-07 19:12] LABS: CREATININE SERUM 1.15 MG/DL (0.60-1.30)
[2022-06-07 19:14] LABS: INR 1.1 (0.8-1.4); MAGNESIUM 1.9 MG/DL (1.6-2.4); PROTHROMBIN TIME PATIENT 14.6 SEC (12.2-14.7)
[2022-06-07] MEDS ORDERED: fentaNYL INJ 100 MCG/2 ML AMP IVP ONE (19:15)
[2022-06-07] MEDS ORDERED: metroNIDAZOLE 500MG/100ML IVPB 100 ML IV ONE (19:15)
[2022-06-07] MEDS ORDERED: LIDOCAINE UROJET 2% GEL 10 ML PKG TOP ONE (19:15)
[2022-06-07] MEDS ORDERED: CIPROFLOXACIN IV 400MG/200ML 200 ML IV ONE (19:15)
[2022-06-07 19:28] LABS: BAND NEUTROPHILS 1 %; EOSINOPHILS % (MANUAL) 1 %; LYMPHOCYTES % (MANUAL) 26 %; MONOCYTES % (MANUAL) 8 %; NEUTROPHILS % (MANUAL) 64 %
[2022-06-07 19:29] LABS: PLATELET ESTIMATE SLIGHTLY ELEVATED; RBC MORPH NORMAL
[2022-06-07] MEDS ORDERED: IOHEXOL 350 MG/ML 100 ML (OMNIPAQUE 350) VIAL IV ONE (19:30)
[2022-06-07] MEDS ORDERED: HOLD METFORMIN - RECEIVED CONTRAST 20 ML VIAL IV SCH (19:30)
[2022-06-07] MEDS ORDERED: NS 100 ML (IVPB) BAG IV ONE (19:30)
[2022-06-07 19:31] LABS: ERYTHROCYTE SEDIMENTATION RATE 9 MM/HR (0-30)
[2022-06-07 19:35] LABS: BILIRUBIN,URINE NEGATIVE (NEGATIVE); CLARITY,URINE CLEAR; COLOR,URINE YELLOW; GLUCOSE, URINE (UA) NEGATIVE (NEGATIVE); KETONES,URINE NEGATIVE (NEGATIVE); LEUKOCYTE ESTERASE ,URINE TRACE (NEGATIVE); NITRITE,URINE POSITIVE (NEGATIVE); PROTEIN,URINE NEGATIVE (NEGATIVE)
[2022-06-07 19:46] LABS: BACTERIA,URINE LARGE /HPF; SQUAMOUS EPITHELIAL CELL,UR 0-2 /HPF; WBC,URINE 0-2 /HPF
--- NOTE | 2022-06-07 19:49 | Diagnostic Imaging Report ---
CLINICAL INDICATION: Patient with nausea, vomiting, diarrhea and left lower quadrant pain for approximately 2 weeks. EXAM: Portable chest x-ray upright view. COMPARISON: Chest x-ray dated 08/10/2021. FINDINGS: Lungs/pleura: There is interval progression of multiple dense micronodules seen throughout both lungs again seen likely related to calcified granuloma. There is no interval lung infiltrate. Otherwise, lungs are clear. There is no pneumothorax. There is no pleural effusion. Mediastinum: Unremarkable. Pulmonary vasculature: Unremarkable. Heart: Unremarkable. Bones/extrathoracic soft tissue: Unremarkable. IMPRESSION: 1: There is no interval radiographic evidence of acute cardiopulmonary process. 2: There is interval progression of numerous micronodules throughout both lungs. These findings may be related to calcific granuloma. Clinical correlation is suggested to exclude metastatic disease. Dictated by: Dictated on workstation # [id number]
--- NOTE | 2022-06-07 19:59 | Diagnostic Imaging Report ---
EXAMINATION: CT abdomen and pelvis with intravenous contrast. TECHNIQUE: Multiple contiguous axial images were obtained through the abdomen and pelvis after the uneventful administration of intravenous contrast. All CT scans use one or more of the following dose optimizing techniques: automated exposure control, MA and/or KvP adjustment based on patient size and exam type or iterative reconstruction. HISTORY: Left lower quadrant pain. COMPARISON: 09/23/2017. FINDINGS: Limited views of the lower thorax show small calcifications in the lung bases. The liver is normal without focal lesion. There is no biliary ductal dilation. Gallbladder is absent. Pancreas is normal. Spleen is normal. Adrenal glands are normal. The kidneys are normal. There is no hydronephrosis. Bladder is decompressed by a Smith catheter. There is liquid stool in the colon in keeping with a diarrheal illness. No bowel wall thickening. Surgical clips in the pelvis may represent prior sigmoid resection. No free fluid or air. No abdominal or pelvic lymphadenopathy. Aorta is normal in caliber without aneurysm. There is no suspicious osseus lesion. IMPRESSION: Liquid stool in the colon suggestive of a diarrheal illness. Dictated by: Dictated on workstation # [id number]
--- NOTE | 2022-06-07 20:04 | ED GI ---
General Chief Complaint: Abdominal/GI Problems Stated Complaint: DIARRHEA Nursing Triage Note: pt to room by ccems. states she has had diarrhea and LLQ pain for approx 2 weeks. pt reports having bright red blood in stool starting today. pt reports nausea and vomiting as well. describes the pain as a "spasming" pain. Source of Information: Patient, Old Records History of Present Illness Date Seen by Provider: Jun 07, 2022 Time Seen by Provider: 18:45 Initial Comments PT ARRIVES VIA EMS FROM HOME C/O DIARRHEA X 2 WEEKS, TODAY SHE HAS BRIGHT RED BLOOD IN STOOL SHE HAS HAD 3-4 STOOLS TODAY SHE HAS HAD GENERALIZED ABDOMINAL PAIN, BUT IS WORST IN LLQ, AND PAIN IS CONSTANT AND CRAMPING HAS HAD NAUSEA AND VOMITING WELL, VOMITED X 1 TODAY SHE HAS NOT HAD FEVER SHE HAS HAD DECREASED INTAKE --HAD A LITTLE BIT OF SOUP TODAY SHE IS UNSURE OF OUTPUT, DUE TO THE DIARRHEA--THINKS SHE URINATES A LITTLE EVERY TIME SHE HAS DIARRHEA SHE HAS NOT SOUGHT CARE AT ANY TIME FOR THIS PROBLEM ONLY DIFFERENCE TODAY IS SHE NOTED BLOOD IN HER STOOL SHE HAS HISTORY OF DIVERTICULITIS, WITH COLON RESECTION AND COLOSTOMY WITH LATER REVERSAL FOR COLON PERFORATION DUE TO DIVERTICULITIS. SHE HAS HAD APPENDECTOMY, CHOLECYSTECTOMY, HYSTERECTOMY/BSO. SHE ALSO HAS HISTORY OF DIABETES, CAD WITH STENTS, HTN. SHE IS NOT ON ASPIRIN OR BLOOD THINNERS ON REVIEW OF MED RECONCILIATION, PT HAS RECENTLY BEEN PRESCRIBED: -CLINDAMYCIN 600 MG TID X 10 DAYS, 04/30/22 FOR A LEFT LEG INFECTION--PT STATES IT HAS HEALED -FARXIGA 05/20/22--PT STATES SHE HAS NOT STARTED IT YET -AUGMENTIN 875 MG BID X 7 DAYS, 05/24/22 FOR BRONCHITIS/SINUSITIS -PREDNISONE 20 MG X 5 DAYS, 05/24/22 FOR BRONCHITIS/SINUSITIS PCP: LAURI-K Allergies and Home Medications Allergies Coded Allergies: sulfamethoxazole (Verified Allergy, Intermediate, VOMITTING/MIGRAINE, 01/26/18) trimethoprim (Verified Allergy, Intermediate, VOMITTING/MIGRAINE, 01/26/18) pentazocine (Unverified Adverse Reaction, Mild, N/V, HEAD ACHE, 01/26/18) Patient Home Medication List Home Medication List Reviewed: Yes Acetaminophen (Acetaminophen) 500 Mg Tablet, 1,000 MG PO Q6H PRN for PAIN-MILD, (Reported) Entered as Reported by: CARINE YOUNG on 05/13/16 1357 Albuterol Sulfate (Ventolin Hfa) 1 Puff Puff, 2 PUFF IH Q4H, (Reported) Entered as Reported by: MAICOL GUTIERREZ on 10/04/20 120 Albuterol Sulfate (Albuterol Sulfate) 2.5 Mg/0.5 Ml Vial.neb, 2.5 MG INH Q4H, (Reported) Entered as Reported by: MAICOL GUTIERREZ on 10/04/20 120 Brexpiprazole (Rexulti) 1 Mg Tablet, 1 MG PO DAILY, (Reported) Entered as Reported by: MAICOL GUTIERREZ on 10/04/20 120 Cyclobenzaprine HCl (Cyclobenzaprine HCl) 10 Mg Tablet, 10 MG PO PRN, (Reported) Entered as Reported by: MAICOL GUTIERREZ on 10/04/20 120 Cyclosporine (Restasis) 1 Each Droperette, 1 EACH OP DAILY, (Reported) Entered as Reported by: MAICOL GUTIERREZ on 10/04/20 120 Fluticasone/Salmeterol (Advair 250-50 Diskus) 1 Each Blst.w.dev, 1 EACH IH BID, (Reported) Entered as Reported by: MAICOL GUTIERREZ on 10/04/20 120 Gabapentin (Neurontin) 300 Mg Capsule, 300 MG PO BID, (Reported) Entered as Reported by: DIXIE ASH on 06/05/20 1627 Insulin Aspart (Novolog) 300 Units/3 Ml Cartridge, 15 UNITS SQ AC, (Reported) Entered as Reported by: MAICOL GUTIERREZ on 10/04/20 120 Latanoprost/Pf (Latanoprost 0.005% Eye Drop) 7.5 Ml Drops, 7.5 ML OP HS, (Reported) Entered as Reported by: MAICOL GUTIERREZ on 10/04/20 120 Metoprolol Tartrate (Metoprolol Tartrate) 25 Mg Tablet, 25 MG PO DAILY, (Reporte d) Entered as Reported by: CARINE YOUNG on 11/27/15 1722 Nitroglycerin (Nitroglycerin) 0.4 Mg Tab.subl, 0.4 MG SL Q4M, (Reported) Entered as Reported by: MAICOL GUTIERREZ on 10/04/20 1206 Pantoprazole Sodium (Pantoprazole Sodium) 40 Mg Tablet.dr, 40 MG PO DAILY, (Reported) Entered as Reported by: MAICOL GUTIERREZ on 10/04/20 1206 Prazosin HCl (Prazosin HCl) 1 Mg Capsule, 1 MG PO DAILY, (Reported) Entered as Reported by: MAICOL GUTIERREZ on 10/04/20 1206 Sacubitril/Valsartan (Entresto 24 mg-26 mg Tablet) 1 Each Tablet, 1 TAB PO BID, (Reported) Entered as Reported by: STEPHEN HORNE on 03/16/18 1243 Venlafaxine HCl (Effexor Xr) 150 Mg Cap.er.24h, 150 MG PO HS, (Reported) Entered as Reported by: DIXIE ASH on 06/05/20 1636 Venlafaxine HCl (Effexor Xr) 150 Mg Cap.er.24h, 150 MG PO DAILY Prescribed by: SANTOSH GENAO on 08/10/212038 Review of Systems Review of Systems Constitutional: malaise, weakness EENTM: No Symptoms Reported Respiratory: No Symptoms Reported Cardiovascular: No Symptoms Reported Gastrointestinal: See HPI, Abdominal Pain, Diarrhea, Nausea, Poor Appetite, Poor Fluid Intake, Rectal Bleeding, Vomiting Genitourinary: See HPI Musculoskeletal: no symptoms reported Skin: no symptoms reported Psychiatric/Neurological: No Symptoms Reported Endocrine: No Symptoms Reported Hematologic/Lymphatic: No Symptoms Reported Past Gnzmoip-Jxzqbc-Zjwuge Hx Patient Social History Tobacco Use?: Yes Tobacco type used: Cigarettes Smoking Status: Current Everyday Smoker Substance use?: No Alcohol Use?: No Immunizations Up To Date Tetanus Booster (TDap): More than 5yrs PED Vaccines UTD: No Seasonal Allergies Seasonal Allergies: Yes Past Medical History Surgeries: Yes (stents x3, colostomy then reversal, ) Abdominal, Appendectomy, Bowel Surgery, Breast, Cardiac, Coronary Stent, Eye Surgery, Gallbladder, Hysterectomy, Oophorectomy Respiratory: Yes (RESPIRATORY FAILURE ON 2013; P.E. 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 Sexually Transmitted Disease: No HIV/AIDS: No Genitourinary: Yes Kidney Stones, Renal Failure Gastrointestinal: Yes Gastroesophageal Reflux, Diverticulosis, Polyps, Hiatal Hernia, Irritable Bowel Musculoskeletal: Yes Osteoporosis, Arthritis, Fibromyalgia, Rheumatoid Arthritis Endocrine: Yes Diabetes, Insulin dep HEENT: Yes Glaucoma Loss of Vision: Denies Hearing Impairment: Denies Cancer: Yes (cervical) Cervical Did You Recieve Any Treatments: Yes What Type of Treatment Did You: Surgical Intervention Psychosocial: Yes Anxiety, Bipolar, Depression Integumentary: Yes (HX OF SHINGLES) Blood Disorders: Yes (hx of anemia) Adverse Reaction/Blood Tranf: No Family Medical History CANCER 19 MOTHER (PATIENT DOES NOT KNOW LOCATION) Cancer, Other Conditions/Hx SOCIAL HISTORY: -SMOKES 1 PPD -DENIES ETOH USE -DENIES DRUG USE PAST SURGICAL HISTORY: -BREAST BIOPSY -APPENDECTOMY -CHOLECYSTECTOMY -HYSTERECTOMY / BILATERAL SALPINGO-OOPHORECTOMY -CARDIAC CATHS --MS WITH ANGIOPLASTY AND STENTS X 2 TO LEFT CIRCUMFLEX AND ANGIOPLASTY TO LAD 10/2014 -COLON RESECTION WITH COLOSTOMY FOR PERFORATED DIVERTICULUM 05/2014, AND LATER REVERSAL 07/2014 -EGD'S AND COLONOSCOPIES -CARDIAC CATH 10/04/[address] WILSON: CONCLUSION: 1. Patent stent in the left main extending to the circumflex artery that is a dominant artery with excellent flow distally 2. Mild to moderate disease in the LAD nonobstructive disease, ostial LAD has about 40 to 50% stenosis nonobstructive disease 3. Mildly elevated left ventricular end-diastolic pressure DISCUSSION AND RECOMMENDATION: Continue to maximize medical therapy Physical Exam Vital Signs Vital Signs - First Documented 06/07/22 06/07/22 18:45 20:47 Temp 36.2 Pulse 76 Resp 20 B/P (MAP) 97/67 (77) Pulse Ox 97 O2 Delivery Room Air Capillary Refill : Height/Weight/BMI Height: 5'2.00" Weight: 164lbs. 0.0oz. 74.445608xa; 25.00 BMI Method:Stated General Appearance: WD/WN, no apparent distress, other (DOES APPEAR SOMEWHAT LETHARGIC) HEENT: PERRL/EOMI Neck: normal inspection Respiratory: normal breath sounds, no respiratory distress, no accessory muscle use Cardiovascular: regular rate, rhythm Gastrointestinal: soft; No distended; guarding, rebound, tenderness (DIFFUSE TENDERNESS, BUT IS MOST TENDER IN LLQ, WITH SOME GUARDING AND EQUIVOCAL REBOUND); No hernia, No mass Rectal: other (NORMAL EXTERNAL RECTAL EXAM. 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, no motor/sensory deficits, alert, oriented x 3 Skin: warm/dry, pallor; No rash Focused Exam Sepsis Stage: Sepsis Possible Source: GI Tract/Intra-Abdominal Lactate Level 06/07/22 19:12: Lactic Acid Level 1.34 Time of Focused Exam: 20:05 Respiratory: Normal Breath Sounds, No Accessory Muscle Use, No Respiratory Distress Cardiovascular: Regular Rate, Rhythm, No Murmur Capillary Refill: Less Than 3 Seconds Lactic Acid Level Laboratory Tests Test 06/07/22 19:12 Lactic Acid Level 1.34 MMOL/L (0.50-2.00) Within 3hrs of presentation: Admin fluids, Admin ABX, Blood cultures prior to ABX's, Focus exam, Lactate level Procedures/Interventions Date of ETT Placement: Feb 11, 2016 Time of ETT Placement: 1341 Progress/Results/Core Measures Results/Orders Lab Results Laboratory Tests Test 06/07/22 18:48 06/07/22 18:50 06/07/22 19:12 06/07/22 19:28 Range/Units White Blood Count 22.2 H 4.3-11.0 10^3/uL Red Blood Count 4.62 3.80-5.11 10^6/uL Hemoglobin 14.9 11.5-16.0 g/dL Hematocrit 41 35-52 % Mean Corpuscular Volume 89 80-99 fL Mean Corpuscular Hemoglobin 32 25-34 pg Mean Corpuscular Hemoglobin Concent 36 32-36 g/dL Red Cell Distribution Width 12.3 10.0-14.5 % Platelet Count 486 H 130-400 10^3/uL Mean Platelet Volume 9.7 9.0-12.2 fL Immature Granulocyte % (Auto) 1 % Neutrophils (%) (Auto) 68 42-75 % Lymphocytes (%) (Auto) 22 12-44 % Monocytes (%) (Auto) 8 0-12 % Eosinophils (%) (Auto) 1 0-10 % Basophils (%) (Auto) 1 0-10 % Neutrophils # (Auto) 15.1 H 1.8-7.8 10^3/uL Lymphocytes # (Auto) 4.8 H 1.0-4.0 10^3/uL Monocytes # (Auto) 1.7 H 0.0-1.0 10^3/uL Eosinophils # (Auto) 0.2 0.0-0.3 10^3/uL Basophils # (Auto) 0.1 0.0-0.1 10^3/uL Immature Granulocyte # (Auto) 0.2 H 0.0-0.1 10^3/uL Neutrophils % (Manual) 64 % Lymphocytes % (Manual) 26 % Monocytes % (Manual) 8 % Eosinophils % (Manual) 1 % Band Neutrophils 1 % Platelet Estimate SLIGHTLY ELEVATED Blood Morphology Comment NORMAL Erythrocyte Sedimentation Rate 9 0-30 MM/HR Prothrombin Time 14.6 12.2-14.7 SEC INR Comment 1.1 0.8-1.4 Activated Partial Thromboplast Time 30 24-35 SEC Sodium Level 137 135-145 MMOL/L Potassium Level 2.9 L 3.6-5.0 MMOL/L Chloride Level 110 H 98-107 MMOL/L Carbon Dioxide Level 16 L 21-32 MMOL/L Anion Gap 11 5-14 MMOL/L Blood Urea Nitrogen 18 7-18 MG/DL Creatinine 1.15 0.60-1.30 MG/DL Estimat Glomerular Filtration Rate 54 BUN/Creatinine Ratio 16 Glucose Level 110 H 70-105 MG/DL Calcium Level 9.7 8.5-10.1 MG/DL Corrected Calcium 9.7 8.5-10.1 MG/DL Magnesium Level 1.9 1.6-2.4 MG/DL Total Bilirubin 0.3 0.1-1.0 MG/DL Aspartate Amino Transf (AST/SGOT) 15 5-34 U/L Alanine Aminotransferase (ALT/SGPT) 14 0-55 U/L Alkaline Phosphatase 87 40-136 U/L C-Reactive Protein High Sensitivity 1.15 H 0.00-0.50 MG/DL Total Protein 7.4 6.4-8.2 GM/DL Albumin 4.0 3.2-4.5 GM/DL Amylase Level 70 25-125 U/L Lipase 41 8-78 U/L Influenza Type A (RT-PCR) Not Detected Not Detecte Influenza Type B (RT-PCR) Not Detected Not Detecte SARS-CoV-2 RNA (RT-PCR) Not Detected Not Detecte Lactic Acid Level 1.34 0.50-2.00 MMOL/L Urine Color YELLOW Urine Clarity CLEAR Urine pH 6.0 5-9 Urine Specific [place] 1.015 L 1.016-1.022 Urine Protein NEGATIVE NEGATIVE Urine Glucose (UA) NEGATIVE NEGATIVE Urine Ketones NEGATIVE NEGATIVE Urine Nitrite POSITIVE H NEGATIVE Urine Bilirubin NEGATIVE NEGATIVE Urine Urobilinogen 0.2 < = 1.0 MG/DL Urine Leukocyte Esterase TRACE H NEGATIVE Urine RBC (Auto) NEGATIVE NEGATIVE Urine RBC NONE /HPF Urine WBC 0-2 /HPF Urine Squamous Epithelial Cells 0-2 /HPF Urine Crystals NONE /LPF Urine Bacteria LARGE H /HPF Urine Casts NONE /LPF Urine Mucus NEGATIVE /LPF Urine Culture Indicated CULTURE PENDING Test 06/07/22 20:20 Range/Units Stool Occult Blood Immunoassay POSITIVE H NEGATIVE Micro Results Microbiology 06/07/22 C. difficile GDH Antigen & Toxins - Final, Complete 06/07/22 Fecal Leukocyte Stain - Final, Resulted 06/07/22 Stool Culture, Resulted Pending My Orders Orders - CAMILLE GARDUNO DO Ed Iv/Invasive Line Start (06/07/22 18:48) Monitor-Rhythm Ecg Trace Only (06/07/22 18:48) Chest 1 View, Ap/Pa Only (06/07/22 18:48) Amylase (06/07/22 18:48) Cbc With Automated Diff (06/07/22 18:48) Comprehensive Metabolic Panel (06/07/22 18:48) Hs C Reactive Protein (06/07/22 18:48) Lipase (06/07/22 18:48) Magnesium (06/07/22 18:48) Ua Culture If Indicated (06/07/22 18:48) Stool Culture (06/07/22 18:48) Fecal Wbc (06/07/22 18:48) Erythrocyte Sedimentation Rate (06/07/22 18:48) Covid 19 Inhouse Test (06/07/22 18:48) Ed Iv/Invasive Line Start (06/07/22 18:48) Lactated Ringers (Lr 1000 Ml Iv Solution (06/07/22 19:00) Ondansetron Injection (Zofran Injectio (06/07/22 19:00) Influenza A And B By Pcr (06/07/22 18:48) Isolation Central Supply Req (06/07/22 18:48) Manual Differential (06/07/22 18:48) Blood Culture (06/07/22:01) Urine Culture (06/07/22:) Protime With Inr (06/07/22:) Partial Thromboplastin Time (06/07/22:) Ed Iv/Invasive Line Start (06/07/22 19:01) Vital Signs Adult Sepsis Patie Q15M (06/07/22:) O2 (06/07/22:) Remove Rings In Anticipation O (06/07/22:) Lactic Acid Analyzer (06/07/22:) Ciprofloxacin Iv 400mg/200ml (Cipro Iv S (06/07/22 19:15) Metronidazole 500mg/100ml Ivpb (Flagyl 5 (06/07/22 19:15) Catheter(Urinary) Insert & Ass 03,15 (06/07/22 19:) Lidocaine 2% (Urojet) (Xylocaine Urojet) (06/07/22 19:15) Fentanyl Inj (Sublimaze Injection) (06/07/22 19:15) Ct Abdomen/Pelvis W (06/07/22 19:15) Iohexol Injection (Omnipaque 350 Mg/Ml 1 (06/07/22 19:30) Received Contrast (Hold Metformin- Contr (06/07/22 19:30) Ns (Ivpb) (Sodium Chloride 0.9% Ivpb Bag (06/07/22 19:30) Occult Blood Stool (06/07/22 20:12) C Difficile Ag + Toxin A/B. (06/07/22 20:21) Isolation Central Supply Req (06/07/22 20:21) Ed Admission (Communication) (06/07/22 20:29) Ed Iv/Invasive Line Start (06/07/22 20:57) Lactated Ringers (Lr 1000 Ml Iv Solution (06/07/22 21:00) Medications Given in ED Current Medications Medications Dose Ordered Sig/Jamie Route Start Time Stop Time Status Last Admin Dose Admin Ciprofloxacin/ Dextrose 200 ml @ 200 mls/hr ONCE ONCE IV 06/07/22 19:15 06/07/22 20:14 DC 06/07/22 20:28 200 MLS/HR Fentanyl Citrate 50 mcg ONCE ONCE IVP 06/07/22 19:15 06/07/22 19:16 DC 06/07/22 19:14 50 MCG Iohexol 100 ml ONCE ONCE IV 06/07/22 19:30 06/07/22 19:32 DC 06/07/22 19:46 74 ML Lactated Ringer's 1,000 ml @ 0 mls/hr Q0M ONCE IV 06/07/22 19:00 06/07/22 19:01 DC 06/07/22 19:00 999 MLS/HR Metronidazole 100 ml @ 100 mls/hr ONCE ONCE IV 06/07/22 19:15 06/07/22 20:14 DC 06/07/22 20:28 100 MLS/HR Ondansetron HCl 4 mg ONCE ONCE IVP 06/07/22 19:00 06/07/22 19:01 DC 06/07/22 19:01 4 MG Sodium Chloride 100 ml ONCE ONCE IV 06/07/22 19:30 06/07/22 19:32 DC 06/07/22 19:47 80 ML Vital Signs/I&O 06/07/22 06/07/22 18:45 20:47 Temp 36.2 Pulse 76 77 Resp 20 17 B/P (MAP) 97/67 (77) 110/60 Pulse Ox 97 99 O2 Delivery Room Air 06/08/22 00:00 Intake Total 1000 ml Balance 1000 ml Blood Pressure Mean: 77 Progress Progress Note : Progress Note PLACED IN ISOLATION ROOM PPE WORN COVID AND FLU TESTING DONE SEPSIS PROTOCOL INITIATED GIVEN: -IV FLUIDS -ZOFRAN -FENTANYL FOR PAIN -ANTIBIOTICS NO DETERIORATION IN PT'S CONDITION DURING ER STAY PT'S BP REMAINS AROUND 100 SYSTOLIC NO TACHYCARDIA NO FEVER NO VOMITING PT DID HAVE AN EPISODE OF DIARRHEA JUST PRIOR TO GOING UPSTAIRS. SPECIMEN SENT TO LAB STOOL SPECIMEN--+ HEMOCCULT, + FECAL LEUKOCYTES, + C. DIFFICILE. REVIEWED PRIOR RECORDS, INCLUDING ER VISITS, ADMITS, H&P'S, CONSULTS, TESTS/PROCEDURES, DISCHARGE SUMMARIES DISCUSSED TEST RESULTS, NEED FOR HOSPITALIZATION AND PT IS AGREEABLE TO THIS PLAN COMPLEX MANAGEMENT DUE TO MULTIPLE CO-MORBIDITIES INCLUDING DIABETES, HTN, CAD WITH HX OF MS AND STENTS, COPD WITH CONTINUED SMOKING AND RECENT BRONCHITIS, CHRONIC PAIN, HISTORY OF PERFORATED DIVERTICULITIS WITH COLON RESECTION AND COLOSTOMY WITH LATER REVERSAL. ALSO COMPLICATED BY + C. DIFFICILE ENTERITIS , IN PRESENCE OF SEPSIS. PLAN TO TREAT WITH ORAL VANCOMYCIN AND IV ANTIBIOTICS. Diagnostic Imaging Comments CXR--PER RADIOLOGIST REPORT CT ABDOMEN/PELVIS--PER RADIOLOGIST REPORT AT 2004 COMPARISON: 09/23/2017. FINDINGS: Limited views of the lower thorax show small calcifications in the lung bases. The liver is normal without focal lesion. There is no biliary ductal dilation. Gallbladder is absent. Pancreas is normal. Spleen is normal. Adrenal glands are normal. The kidneys are normal. There is no hydronephrosis. Bladder is decompressed by a Smith catheter. There is liquid stool in the colon in keeping with a diarrheal illness. No bowel wall thickening. Surgical clips in the pelvis may represent prior sigmoid resection. No free fluid or air. No abdominal or pelvic lymphadenopathy. Aorta is normal in caliber without aneurysm. There is no suspicious osseus lesion. IMPRESSION: Liquid stool in the colon suggestive of a diarrheal illness. Reviewed: Reviewed by [facility] Departure Communication (Admissions) 2009--ATTEMPTING TO CONTACT DR. VOSS, NO ANSWER, UNABLE TO LEAVE MESSAGE 2010--SPOKE WITH DR. MARISCAL, SURGEON AND INFORMED OF CONSULT. 2024--SPOKE WITH DR. VOSS, HOSPITALIST FOR [facility]. ACCEPTS PT FOR ADMIT. SHE WILL DO ADMIT ORDERS. Impression Primary Impression: Sepsis Additional Impressions: C. difficile enteritis Dehydration Hypokalemia UTI (urinary tract infection) IDDM (insulin dependent diabetes mellitus) HX OF HTN HX OF CAD WITH STENTS COPD (chronic obstructive pulmonary disease) ACTIVE SMOKER Disposition: ADMITTED INPATIENT Condition: Stable Admissions Decision to Admit Reason: Admit from ER (General) Decision to Admit/Date: Jun 07, 2022 Time/Decision to Admit Time: 20:10 Departure-Patient Inst. Referrals: DIXIE ZELAYA MD (PCP/Family) Primary Care Physician CAMILLE GARDUNO DO Jun 07, 2022 20:04
[2022-06-07] MEDS ORDERED: HYDROmorphone 2 MG/ML VIAL (DILAUDID) IV PRN (21:30)
[2022-06-07] MEDS ORDERED: diphenhydrAMINE 25 MG TAB (BENADRYL) PO PRN (21:30)
[2022-06-07] MEDS ORDERED: NS IV 500 ML 500 ML IV PRN (21:30)
[2022-06-07] MEDS ORDERED: MILK OF MAGNESIA 400 MG/5 ML 30 ML UDC PO PRN (21:30)
[2022-06-07] MEDS ORDERED: diphenhydrAMINE 50 MG/ML INJ (BENADRYL) IVP PRN (21:30)
[2022-06-07] MEDS ORDERED: BISACODYL 10 MG SUPP (DULCOLAX) PR PRN (21:30)
[2022-06-07] MEDS ORDERED: polyethylene glycoL POWDER 17 GM (MIRALAX) PACK PO PRN (21:30)
[2022-06-07] MEDS ORDERED: ONDANSETRON 4 MG (ZOFRAN) ORAL DISSOLVE TAB PO PRN (21:30)
[2022-06-07] MEDS ORDERED: CHOLESTYRAMINE 4 GM (QUESTRAN LITE, PREVALITE) PKT PO PRN (21:30)
[2022-06-07] MEDS ORDERED: ALPRAZolam 1 MG (XANAX) TAB PO PRN (21:30)
[2022-06-07] MEDS ORDERED: LACTULOSE SYRUP 10GM/15ML (ENULOSE) 30ML UDC PO PRN (21:30)
[2022-06-07] MEDS ORDERED: NS IV 1000 ML 1,000 ML ONE (21:53)
[2022-06-07] MEDS ORDERED: HYDROmorphone 2 MG/ML VIAL (DILAUDID) ONE (21:54)
[2022-06-07] MEDS: NS IV 1000 ML 1,000 ML IV SCH (22:00)
[2022-06-07 22:35] VITALS: BP 112/66
[2022-06-07] MEDS ORDERED: RT-ALBUTEROL SULF 2.5 MG/3 ML PRE-MIX VIAL INH PRN (23:00)
[2022-06-07] MEDS: ONDANSETRON 4 MG/2 ML (SDV) Z0FRAN IV PRN (23:58)
[2022-06-07] MEDS: VANCOMYCIN 125 MG CAPSULE PO SCH (23:58)
[2022-06-08] MEDS: ACETAMINOPHEN 325 MG TABLET PO PRN ×2 (03:50→12:50)
[2022-06-08] MEDS: metroNIDAZOLE 500MG/100ML IVPB 100 ML IV SCH ×2 (03:50→11:52)
[2022-06-08 05:22] LABS: BASOPHILS # (AUTO) 0.1 10^3/uL (0.0-0.1); BASOPHILS % (AUTO) 1 % (0-10); EOSINOPHILS # (AUTO) 0.2 10^3/uL (0.0-0.3); EOSINOPHILS % (AUTO) 1 % (0-10); HEMATOCRIT 38 % (35-52); HEMOGLOBIN 13.5 g/dL (11.5-16.0); LYMPHOCYTES # (AUTO) 3.1 10^3/uL (1.0-4.0); LYMPHOCYTES % (AUTO) 19 % (12-44); MEAN CORPUSCULAR HEMOGLOBIN 32 pg (25-34); MEAN CORPUSCULAR HGB CONC 36 g/dL (32-36); MEAN CORPUSCULAR VOLUME 90 fL (80-99); MEAN PLATELET VOLUME 9.8 fL (9.0-12.2); MONOCYTES # (AUTO) 1.5 10^3/uL (0.0-1.0); MONOCYTES % (AUTO) 9 % (0-12); NEUTROPHILS # (AUTO) 11.6 10^3/uL (1.8-7.8); NEUTROPHILS % (AUTO) 70 % (42-75); PLATELET COUNT 378 10^3/uL (130-400); WHITE BLOOD COUNT 16.6 10^3/uL (4.3-11.0)
[2022-06-08 05:30] LABS: ALBUMIN 3.3 GM/DL (3.2-4.5); POTASSIUM 2.7 MMOL/L (3.6-5.0)
[2022-06-08 05:31] LABS: CALCIUM 8.8 MG/DL (8.5-10.1)
[2022-06-08 05:34] LABS: BILIRUBIN,TOTAL 0.4 MG/DL (0.1-1.0)
[2022-06-08 05:35] LABS: PHOSPHORUS 3.3 MG/DL (2.3-4.7)
[2022-06-08 05:36] LABS: CREATININE SERUM 0.91 MG/DL (0.60-1.30)
[2022-06-08 05:39] LABS: MAGNESIUM 1.6 MG/DL (1.6-2.4)
[2022-06-08] MEDS ORDERED: KCL 20 MEQ TAB (K-DUR) PO SCH (06:00)
[2022-06-08] MEDS ORDERED: MAGNESIUM 1 GM/100 ML IVPB 100 ML IV SCH (06:00)
[2022-06-08] MEDS ORDERED: POTASSIUM CL 10MEQ/50ML IVPB 50 ML IV SCH (06:00)
[2022-06-08] MEDS: VANCOMYCIN 125 MG CAPSULE PO SCH ×4 (06:06→23:13)
[2022-06-08] MEDS: MAGNESIUM 1 GM/100 ML IVPB 100 ML IV SCH ×4 (06:06→08:10)
[2022-06-08] MEDS: POTASSIUM CL 10MEQ/50ML IVPB 50 ML IV SCH ×5 (06:07→16:23)
[2022-06-08] MEDS: NS IV 1000 ML 1,000 ML IV SCH ×3 (06:44→18:52)
[2022-06-08] MEDS: PANTOPRAZOLE 40 MG (PROTONIX) VIAL IV SCH (08:06)
[2022-06-08] MEDS: DOCUSATE SODIUM 100 MG (COLACE) CAP PO SCH ×2 (08:07→19:10)
[2022-06-08] MEDS: SENNOSIDES 8.6 MG (SENOKOT) TAB PO SCH ×2 (08:07→19:10)
[2022-06-08] MEDS: CIPROFLOXACIN IV 400MG/200ML 200 ML IV SCH ×2 (08:07→19:31)
--- NOTE | 2022-06-08 08:50 | History & Physical-Hospitalist ---
History of Present Illness HPI/Chief Complaint CC: Abdominal pain with diarrhea from C diff colitis and diverticulitis with UTI HPI: This is a 61yoWF clinic patient of [facility] who has a h/o heavy smoking and colon resection in the past who presents to the ICU with sepsis from C diff colitis and diverticulitis with UTI. Nicotine patch ordered. Pain improved currently. Vanc PO already ordered from ER admit. Moving down to floor. Dr Singh consulted. Upon review she had a recent exposure to 2 rounds of abx including Augmentin and Clinda. 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 Patients Allergies have been reviewed. Allergies Allergies Coded Allergies sulfamethoxazole (Verified Allergy, Intermediate, VOMITTING/MIGRAINE, 01/26/18) trimethoprim (Verified Allergy, Intermediate, VOMITTING/MIGRAINE, 01/26/18) pentazocine (Unverified Adverse Reaction, Mild, N/V, HEAD ACHE, 01/26/18) Past Iohbbdw-Rbrgsn-Zsuscp Hx Patient Social History Marrital Status: single Employed/Student: unemployed Tobacco Use?: Yes Tobacco type used: Cigarettes Smoking Status: Current Everyday Smoker Use of E-Cig and/or Vaping dev: No Substance use?: No Alcohol Use?: No Immunizations Up To Date Date of Influenza Vaccine: Dec 29, 2019 Tetanus Booster (TDap): Unknown Hepatitis A: No Hepatitis B: No PED Vaccines UTD: No Date of Pneumonia Vaccine: May 01, 2015 Seasonal Allergies Seasonal Allergies: Yes Current Status Communicates: Verbally Primary Language: Romansh Preferred Spoken Language: Romansh Is interpretation needed?: No Past Medical History Surgeries: Abdominal, Appendectomy, Bowel Surgery, Breast, Cardiac, Coronary Stent, Eye Surgery, Gallbladder, Hysterectomy, Oophorectomy Asthma, Pneumonia, Chronic Bronchitis, Pulmonary Embolism, COPD Currently Using CPAP: No Currently Using BIPAP: No Coronary Artery Disease, Heart Attack, High Cholesterol, Hypertension 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 Sexually Transmitted Disease: No HIV/AIDS: No Kidney Stones, Renal Failure Gastroesophageal Reflux, Diverticulosis, Polyps, Hiatal Hernia, Irritable Bowel Osteoporosis, Arthritis, Fibromyalgia, Rheumatoid Arthritis Diabetes, Insulin dep Glaucoma Loss of Vision: Denies Hearing Impairment: Denies Cervical Did You Recieve Any Treatments: Yes What Type of Treatment Did You: Surgical Intervention Anxiety, Bipolar, Depression Blood Disorders: Yes (hx of anemia) Adverse Reaction/Blood Tranf: No Family Medical History CANCER 19 MOTHER (PATIENT DOES NOT KNOW LOCATION) Cancer, Other Conditions/Hx SOCIAL HISTORY: -SMOKES 1 PPD -DENIES ETOH USE -DENIES DRUG USE PAST SURGICAL HISTORY: -BREAST BIOPSY -APPENDECTOMY -CHOLECYSTECTOMY -HYSTERECTOMY / BILATERAL SALPINGO-OOPHORECTOMY -CARDIAC CATHS --TN WITH ANGIOPLASTY AND STENTS X 2 TO LEFT CIRCUMFLEX AND ANGIOPLASTY TO LAD 10/2014 -COLON RESECTION WITH COLOSTOMY FOR PERFORATED DIVERTICULUM 05/2014, AND LATER REVERSAL 07/2014 -EGD'S AND COLONOSCOPIES -CARDIAC CATH 10/04/[address] WILSON: CONCLUSION: 1. Patent stent in the left main extending to the circumflex artery that is a dominant artery with excellent flow distally 2. Mild to moderate disease in the LAD nonobstructive disease, ostial LAD has about 40 to 50% stenosis nonobstructive disease 3. Mildly elevated left ventricular end-diastolic pressure DISCUSSION AND RECOMMENDATION: Continue to maximize medical therapy Review of Systems Constitutional: see HPI, malaise, weakness EENTM: no symptoms reported Respiratory: no symptoms reported Cardiovascular: no symptoms reported Gastrointestinal: diarrhea Genitourinary: no symptoms reported Musculoskeletal: back pain Skin: no symptoms reported Psychiatric/Neurological: Anxiety, Depressed All Other Systems Reviewed Negative Unless Noted: Yes Physical Exam Physical Exam Vital Signs Vital Signs - First Documented 06/07/22 06/07/22 18:45 20:47 Temp 36.2 Pulse 76 Resp 20 B/P (MAP) 97/67 (77) Pulse Ox 97 O2 Delivery Room Air Capillary Refill : Less Than 3 Seconds Height, Weight, BMI Height: 5'2.00" Weight: 164lbs. 0.0oz. 74.876871hb; 27.25 BMI Method:Stated General Appearance: No Apparent Distress, Chronically ill Eyes: Right Eye Normal Inspection, Right Eye PERRL HEENT: PERRL/EOMI, Normal ENT Inspection, Pharynx Normal, Moist Mucous Membranes Neck: Full Range of Motion, Normal Inspection, Non Tender Respiratory: Chest Non Tender, Lungs Clear, No Accessory Muscle Use, No Respiratory Distress, Decreased Breath Sounds Cardiovascular: Regular Rate, Rhythm, No Edema, No Gallop, No JVD, No Murmur, Normal Peripheral Pulses Gastrointestinal: Normal Bowel Sounds, No Organomegaly, No Pulsatile Mass, Non Tender, Soft Back: Normal Inspection, No CVA Tenderness, No Vertebral Tenderness Extremity: Normal Capillary Refill, Normal Inspection, Normal Range of Motion, Non Tender, No Calf Tenderness, No Pedal Edema Neurologic/Psychiatric: Alert, Oriented x3, No Motor/Sensory Deficits, Normal Mood/Affect Skin: Normal Color, Warm/Dry Lymphatic: No Adenopathy Results Results/Procedures Labs Laboratory Tests 06/07/22 18:48 06/08/22 04:53 06/09/22 05:21 Patient resulted labs reviewed. Assessment/Plan Admission Diagnosis Assessment: Abdominal pain from C diff colitis s/p 2 rounds of abx exposure h/o colon perforation with colostomy UTI Smoker Plan: Cipro for UTI Vanc PO Move to floor IVF Admission Status: Inpatient Order (span 2 midnights) Reason for Inpatient Admission: sepsis Clinical Quality Measures DVT/VTE Risk/Contraindication: Contraindications-Pharm: Other *list below* Other: RADHA Fuller DO Jun 08, 2022 08:49
--- NOTE | 2022-06-08 09:03 | Tele-ICU Progress Note ---
Subjective Date Seen by a Provider: Jun 08, 2022 Subjective/Events-last exam This virtual visit was conducted using real time audio/video. Thank you for asking us to see this patient for critical care services due to C Dif., hematochezia and sepsis. PE: VSS. O2 sat 96% on RA HEENT: No obvious masses, adenopathy or JVD. Chest: coarse on auscultation. CV: RRR S1 S2 No murmur or added sounds. Abd: Non-tender. Bowel sounds Y. : Unremarkable. Smith Y. MANAGER ASSURANCE/psychiatric: Grossly intact. No obvious focal findings. Extremities: No edema. Capillary refill < 3 seconds. Skin: unremarkable. Results: Elevated WCC 16.6 but improved Decreased K 2.7. BG: . CXR: Hyperinflated, calcified granulomas . Available chart/ vitals / labs / images reviewed. Video assessment done using teleICU camera, rest of exam as per RN. A/P: Critical Care: critically ill patient. Cont. abx, PPI, PRN Zofran. Replace K/Mag. Discussed with REBA Gold. Asked RN to reach out to eICU if any questions or concerns later. Time spent with patient/coordination of care with other health professionals (mins): 15 Sepsis Event Evaluation Height, Weight, BMI Height: 5'2.00" Weight: 164lbs. 0.0oz. 74.297604ty; 27.25 BMI Method:Stated Focused Exam Lactate Level 06/07/22 19:12: Lactic Acid Level 1.34 Time of Focused Exam: 20:05 Exam Exam Patient acknowledged, consented, and participated in this virtual visit which was conducted using real time audio/video Vital Signs Date Time Temp Pulse Resp B/P (MAP) Pulse Ox O2 Delivery O2 Flow Rate FiO2 06/08/22 08:00 78 18 94/58 (72) 95 Room Air 06/08/22 07:39 98 Room Air 06/08/22 07:00 76 16 81/59 (66) 96 Room Air 06/08/22 07:00 79 06/08/22 06:00 77 15 111/57 (75) 97 Room Air 06/08/22 05:00 79 21 108/67 (81) 96 Room Air 06/08/22 04:11 36.4 06/08/22 04:00 78 21 106/69 (81) 96 Room Air 06/08/22 04:00 96 Room Air 06/08/22 03:00 81 19 102/68 (79) 97 Room Air 06/08/22 02:00 79 15 103/67 (79) 97 Room Air 06/08/22 01:00 80 06/08/22 01:00 78 14 93/58 (70) 96 Room Air 06/08/22 00:00 80 14 90/52 (65) 98 Room Air 06/07/22 23:59 97 Room Air 06/07/22 22:45 82 12 86/61 (69) 96 Room Air 06/07/22 22:35 36.6 79 99 06/07/22 22:15 85 13 101/64 (76) 96 Room Air 06/07/22 21:45 81 22 111/71 (84) 98 Room Air 06/07/22 21:30 82 15 116/68 (84) 98 Room Air 06/07/22 21:14 81 06/07/22 21:10 36.6 79 15 112/66 (81) 99 Room Air 06/07/22 21:00 80 34 116/69 (85) 100 Room Air 06/07/22 20:47 77 17 110/60 99 Room Air 06/07/22 18:45 36.2 76 20 97/67 (77) 97 I & O 06/08/22 07:00 Intake Total 1350 ml Output Total 850 ml Balance 500 ml Height & Weight Height: 5'2.00" Weight: 164lbs. 0.0oz. 74.085562sq; 27.25 BMI Method:Stated General Appearance: No Apparent Distress Respiratory: Normal Breath Sounds, No Accessory Muscle Use, No Respiratory Distress Cardiovascular: Regular Rate, Rhythm, No Murmur Capillary Refill: Less Than 3 Seconds Peripheral Pulses: 1+ Dorsalis Pedis (R), 1+ Left Dors-Pedis (L) (See free text) Gastrointestinal: soft; No distended; guarding, rebound, tenderness (DIFFUSE TENDERNESS, BUT IS MOST TENDER IN LLQ, WITH SOME GUARDING AND EQUIVOCAL REBOUND); No hernia, No mass Results Lab Laboratory Tests 06/07/22 18:48 06/08/22 04:53 Assessment/Plan Assessment/Plan See free text. Critical Care: Critically Ill Patient DAT REID MD Jun 08, 2022 09:03
--- NOTE | 2022-06-08 10:02 | Consultation - Surgery ---
THAD LAWS 06/08/22 1002: History of Present Illness History of Present Illness Patient Consulted On(gildardo/time) 06/08/22 09:51 Time Seen by Provider: 08:30 History of Present Illness Carol is a 61 yo F with a history of CAD, systolic HF, HTN, DM, GERD, colorectal polyps, diverticulosis, diverticulitis, and colon resection for perforation due to diverticulitis (2014) who presented to the ER on 06/07 for watery diarrhea and abdominal pain x 2 weeks as well as bloody stool and N/V since that morning. Per ED notes, workup revealed a positive C. diff antigen/toxin test, positive hemoccult test, a urinary tract infection, sepsis and hypokalemia and she was admitted to [facility] ICU. Today, she admits to abdominal pain and nausea of the same severity since admission but denies having vomited since yesterday. She describes her pain as "all over" but worst on the left side, particularly the left lower region. She states the blood she observed yesterday was "bright red" and in her stool, on toilet paper, and in the toilet bowl. She denies the presence of dark or black stool ever as well as bloody stool prior to this incident. She admits to antibiotic use "a few times in the past few weeks" for treatment of a sinus infection and skin infection. She also takes Protonix qday. She notes her child was exhibiting similar symptoms just prior to when she began to feel sick but denies sick contacts otherwise. She states she has not had a C. difficile infection before but notes that intermittent, watery diarrhea is not atypical for her. She additionally denies having ever observed blood with coughing or vomiting. She continues to have nausea but has not vomited since yesterday. She reports having yearly EGD and [facility]osc[facility] history of polyps and states that results of those done 1 year ago were "normal". She smokes tobacco 1 ppd and denies EtOH or illicit drug use. Allergies and Home Medications Allergies Coded Allergies: sulfamethoxazole (Verified Allergy, Intermediate, VOMITTING/MIGRAINE, 01/26/18) trimethoprim (Verified Allergy, Intermediate, VOMITTING/MIGRAINE, 01/26/18) pentazocine (Unverified Adverse Reaction, Mild, N/V, HEAD ACHE, 01/26/18) Patient Home Medication List Acetaminophen (Acetaminophen) 500 Mg Tablet, 1,000 MG PO Q6H PRN for PAIN-MILD, (Reported) Entered as Reported by: CARINE YOUNG on 05/13/16 1357 Albuterol Sulfate (Ventolin Hfa) 1 Puff Puff, 2 PUFF IH Q4H, (Reported) Entered as Reported by: MAICOL GUTIERREZ on 10/04/20 120 Albuterol Sulfate (Albuterol Sulfate) 2.5 Mg/0.5 Ml Vial.neb, 2.5 MG INH Q4H, (Reported) Entered as Reported by: MAICOL GUTIERREZ on 10/04/20 1206 Brexpiprazole (Rexulti) 1 Mg Tablet, 1 MG PO DAILY, (Reported) Entered as Reported by: MAICOL GUTIERREZ on 10/04/20 120 Cyclobenzaprine HCl (Cyclobenzaprine HCl) 10 Mg Tablet, 10 MG PO PRN, (Reported) Entered as Reported by: MAICOL GUTIERREZ on 10/04/20 1206 Cyclosporine (Restasis) 1 Each Droperette, 1 EACH OP DAILY, (Reported) Entered as Reported by: MAICOL GUTIERREZ on 10/04/20 120 Fluticasone/Salmeterol (Advair 250-50 Diskus) 1 Each Blst.w.dev, 1 EACH IH BID, (Reported) Entered as Reported by: MAICOL GUTIERREZ on 10/04/20 120 Gabapentin (Neurontin) 300 Mg Capsule, 300 MG PO BID, (Reported) Entered as Reported by: DIXIE ASH on 06/05/20 1627 Insulin Aspart (Novolog) 300 Units/3 Ml Cartridge, 15 UNITS SQ AC, (Reported) Entered as Reported by: MAICOL GUTIERREZ on 10/04/20 120 Latanoprost/Pf (Latanoprost 0.005% Eye Drop) 7.5 Ml Drops, 7.5 ML OP HS, (Reported) Entered as Reported by: MAICOL GUTIERREZ on 10/04/20 120 Metoprolol Tartrate (Metoprolol Tartrate) 25 Mg Tablet, 25 MG PO DAILY, (Reported) Entered as Reported by: CARINE YOUNG on 11/27/15 1722 Nitroglycerin (Nitroglycerin) 0.4 Mg Tab.subl, 0.4 MG SL Q4M, (Reported) Entered as Reported by: MAICOL GUTIERREZ on 10/04/20 1206 Pantoprazole Sodium (Pantoprazole Sodium) 40 Mg Tablet.dr, 40 MG PO DAILY, (R eported) Entered as Reported by: MAICOL GUTIERREZ on 10/04/20 1206 Prazosin HCl (Prazosin HCl) 1 Mg Capsule, 1 MG PO DAILY, (Reported) Entered as Reported by: MAICOL GUTIERREZ on 10/04/20 1206 Sacubitril/Valsartan (Entresto 24 mg-26 mg Tablet) 1 Each Tablet, 1 TAB PO BID, (Reported) Entered as Reported by: STEPHEN HORNE on 03/16/18 1243 Venlafaxine HCl (Effexor Xr) 150 Mg Cap.er.24h, 150 MG PO HS, (Reported) Entered as Reported by: DIXIE ASH on 06/05/20 1636 Venlafaxine HCl (Effexor Xr) 150 Mg Cap.er.24h, 150 MG PO DAILY Prescribed by: SANTOSH GENAO on 08/10/212038 Past Qcjdmve-Woohtg-Zcljlg Hx Patient Social History Smoking Status: Current Everyday Smoker Former Smoker, Quit: May 01, 2017 Type Used: Cigarettes 2nd Hand Smoke Exposure: No Recent Hopitalizations: No Alcohol Use?: No Immunizations Up To Date Tetanus Booster (TDap): More than 5yrs PED Vaccines UTD: No Date of Pneumonia Vaccine: May 01, 2015 Date of Influenza Vaccine: Dec 29, 2019 Seasonal Allergies Seasonal Allergies: Yes Surgeries History of Surgeries: Yes (stents x3, colostomy then reversal, ) Surgeries: Abdominal, Appendectomy, Bowel Surgery, Breast, Cardiac, Coronary Stent, Eye Surgery, Gallbladder, Hysterectomy, Oophorectomy Respiratory History of Respiratory Disorde: Yes (RESPIRATORY FAILURE ON 2013; P.E. 12/2016) Respiratory Disorders: Asthma, Pneumonia, Chronic Bronchitis, Pulmonary Embolism, COPD Cardiovascular History of Cardiac Disorders: Yes (NV WITH STENTS X 2 IN 10/2014; CHF WITH EF 35-40%) Cardiac Disorders: Coronary Artery Disease, Heart Attack, High Cholesterol, Hypertension Neurological History of Neurological Disord: Yes (SEIZURE: 10 years ago last one) Neurological Disorders: Seizure Disorder 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 System Hx 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 Disorders: Yes (CERVICAL DYSPLASIA--S/P HYST/BSO) Sexually Transmitted Disease: No HIV/AIDS: No 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 Disorders: Denies [employer] History: Hysterectomy Genitourinary History of Genitourinary Disor: Yes Genitourinary Disorders: Kidney Stones, Renal Failure Gastrointestinal History of Gastrointestinal Di: Yes Gastrointestinal Disorders: Gastroesophageal Reflux, Diverticulosis, Polyps, Hiatal Hernia, Irritable Bowel Musculoskeletal History of Musculoskeletal Dis: Yes Musculoskeletal Disorders: Osteoporosis, Arthritis, Fibromyalgia, Rheumatoid Arthritis Endocrine History of Endocrine Disorders: Yes Endocrine Disorders: Diabetes, Insulin dep HEENT History of HEENT Disorders: Yes HEENT Disorders: Glaucoma Loss of Vision: Denies Hearing Impairment: Denies Cancer History of Cancer: Yes (cervical) Cancer: Cervical Psychosocial History of Psychiatric Problem: Yes Behavioral Health Disorders: Anxiety, Bipolar, Depression Integumentary History of Skin or Integumenta: Yes (HX OF SHINGLES) Blood Transfusions History of Blood Disorders: Yes (hx of anemia) Adverse Reaction to a Blood Tr: No Family Medical History Significant Family History: Cancer, Other Conditions/Hx Family Medial History: CANCER 19 MOTHER (PATIENT DOES NOT KNOW LOCATION) Review of Systems-General Constitutional: No chills, No fever Respiratory: cough (dry, occasional, chornic) Cardiovascular: No chest pain, No palpitations Gastrointestinal: abdominal pain (diffuse, worse in left quadrant), diarrhea; No hematemesis; heartburn, nausea, vomiting Genitourinary: No frequency, No incontinence Musculoskeletal: back pain, muscle stiffness Psychiatric/Neurological: Anxiety Physical Exam-General Problems Physical Exam Vital Signs Vital Signs - First Documented 06/07/22 06/07/22 18:45 20:47 Temp 36.2 Pulse 76 Resp 20 B/P (MAP) 97/67 (77) Pulse Ox 97 O2 Delivery Room Air Capillary Refill : Less Than 3 Seconds General Appearance: mild distress HEENT: PERRL/EOMI, pharynx normal Neck: non-tender; No lymphadenopathy (R), No lymphadenopathy (L) Respiratory: chest non-tender, lungs clear, normal breath sounds, no accessory muscle use Cardiovascular: regular rate, rhythm, no murmur Gastrointestinal: normal bowel sounds; No distended (on palpation of LLQ); g uarding, tenderness (on palpation of epigastric region and left quadrant), other (midline surgical scar) Extremities: no pedal edema, no calf tenderness Neurologic/Psychiatric: alert, normal mood/affect Skin: warm/dry Lymphatic: no adenopathy Data Review Labs Laboratory Tests 06/07/22 18:48: White Blood Count 22.2H, Red Blood Count 4.62, Hemoglobin 14.9, Hematocrit 41, Mean Corpuscular Volume 89, Mean Corpuscular Hemoglobin 32, Mean Corpuscular Hemoglobin Concent 36, Red Cell Distribution Width 12.3, Platelet Count 486H, Mean Platelet Volume 9.7, Immature Granulocyte % (Auto) 1, Neutrophils (%) (Auto) 68, Lymphocytes (%) (Auto) 22, Monocytes (%) (Auto) 8, Eosinophils (%) (Auto) 1, Basophils (%) (Auto) 1, Neutrophils # (Auto) 15.1H, Lymphocytes # (Auto) 4.8H, Monocytes # (Auto) 1.7H, Eosinophils # (Auto) 0.2, Basophils # (Auto) 0.1, Immature Granulocyte # (Auto) 0.2H, Neutrophils % (Manual) 64, Lymphocytes % (Manual) 26, Monocytes % (Manual) 8, Eosinophils % (Manual) 1, Band Neutrophils 1, Platelet Estimate SLIGHTLY ELEVATED, Blood Morphology Comment NORMAL, Erythrocyte Sedimentation Rate 9, Prothrombin Time 14.6, INR Comment 1.1, Activated Partial Thromboplast Time 30, Sodium Level 137, Potassium Level 2.9L, Chloride Level 110H, Carbon Dioxide Level 16L, Anion Gap 11, Blood Urea Nitrogen 18, Creatinine 1.15, Estimat Glomerular Filtration Rate 54, BUN/Creatinine Ratio 16, Glucose Level 110H, Calcium Level 9.7, Corrected Calcium 9.7, Magnesium Level 1.9, Total Bilirubin 0.3, Aspartate Amino Transf (AST/SGOT) 15, Alanine Aminotransferase (ALT/SGPT) 14, Alkaline Phosphatase 87, C-Reactive Protein High Sensitivity 1.15H, Total Protein 7.4, Albumin 4.0, Amylase Level 70, Lipase 41 06/07/22 18:50: Influenza Type A (RT-PCR) Not Detected, Influenza Type B (RT-PCR) Not Detected, SARS-CoV-2 RNA (RT-PCR) Not Detected 06/07/22 19:12: Lactic Acid Level 1.34 06/07/22 19:28: Urine Color YELLOW, Urine Clarity CLEAR, Urine pH 6.0, Urine Specific [place] 1.015L, Urine Protein NEGATIVE, Urine Glucose (UA) NEGATIVE, Urine Ketones NEGATIVE, Urine Nitrite POSITIVEH, Urine Bilirubin NEGATIVE, Urine Urobilinogen 0.2, Urine Leukocyte Esterase TRACEH, Urine RBC (Auto) NEGATIVE, Urine RBC NONE, Urine WBC 0-2, Urine Squamous Epithelial Cells 0-2, Urine Crystals NONE, Urine Bacteria LARGEH, Urine Casts NONE, Urine Mucus NEGATIVE, Urine Culture Indicated CULTURE PENDING 06/07/22 20:20: Stool Occult Blood Immunoassay POSITIVEH 06/08/22 04:53: White Blood Count 16.6H, Red Blood Count 4.22, Hemoglobin 13.5, Hematocrit 38, Mean Corpuscular Volume 90, Mean Corpuscular Hemoglobin 32, Mean Corpuscular Hemoglobin Concent 36, Red Cell Distribution Width 12.3, Platelet Count 378, Tri n Platelet Volume 9.8, Immature Granulocyte % (Auto) 1, Neutrophils (%) (Auto) 70, Lymphocytes (%) (Auto) 19, Monocytes (%) (Auto) 9, Eosinophils (%) (Auto) 1, Basophils (%) (Auto) 1, Neutrophils # (Auto) 11.6H, Lymphocytes # (Auto) 3.1, Monocytes # (Auto) 1.5H, Eosinophils # (Auto) 0.2, Basophils # (Auto) 0.1, Immature Granulocyte # (Auto) 0.1, Sodium Level 139, Potassium Level 2.7L, Chloride Level 113H, Carbon Dioxide Level 17L, Anion Gap 9, Blood Urea Nitrogen 13, Creatinine 0.91, Estimat Glomerular Filtration Rate 72, BUN/Creatinine Ratio 14, Glucose Level 112H, Calcium Level 8.8, Corrected Calcium 9.4, Phosphorus Level 3.3, Magnesium Level 1.6, Total Bilirubin 0.4, Aspartate Amino Transf (AST/SGOT) 15, Alanine Aminotransferase (ALT/SGPT) 13, Alkaline Phosphatase 75, Total Protein 6.0L, Albumin 3.3 Microbiology 06/07/22 C. difficile GDH Antigen & Toxins - Final, Complete 06/07/22 Urine Culture - Preliminary, Resulted Escherichia coli Radiology Laboratory Tests 06/07/22 18:48: White Blood Count 22.2H, Platelet Count 486H, Neutrophils # (Auto) 15.1H, Lymphocytes # (Auto) 4.8H, Monocytes # (Auto) 1.7H, Immature Granulocyte # (Auto) 0.2H, Potassium Level 2.9L, Chloride Level 110H, Carbon Dioxide Level 16L , Glucose Level 110H, C-Reactive Protein High Sensitivity 1.15H 06/07/22 18:50: 06/07/22 19:12: 06/07/22 19:28: Urine Specific [place] 1.015L, Urine Nitrite POSITIVEH, Urine Leukocyte Esterase TRACEH, Urine Bacteria LARGEH 06/07/22 20:20: Stool Occult Blood Immunoassay POSITIVEH 06/08/22 04:53: White Blood Count 16.6H, Neutrophils # (Auto) 11.6H, Monocytes # (Auto) 1.5H, Potassium Level 2.7L, Chloride Level 113H, Carbon Dioxide Level 17L, Glucose Level 112H, Total Protein 6.0L Assessment/Plan Assessment/Plan Assessment/Plan C. difficile / Diarrhea Urinary tract infection Leukocytosis - improving Abdominal pain (L > R) - CT 06/07 negative for diverticulitis or perforation Hematochezia - observed once on 06/07 Metabolic acidosis / Hypokalemia CAD with stent placement Insulin dependent DM-II COPD 8 years s/p colon resection for perforation History of diverticulosis History of polyps History of gastritis Current tobacco smoker Continue oral vancomycin and IVF for C. difficile. Continue ciprofloxacin for UTI Continue KCl replacement Continue pain management Clinical Quality Measures DVT/VTE Risk/Contraindication: Contraindications-Pharm: Other *list below* Other: DIGNA Tony DO 06/08/22 1345: History of Present Illness History of Present Illness Time Seen by Provider: 12:37 History of Present Illness Surgery asked to consult regarding abdominal pain, diarrhea, rectal bleed. HPI per ED: PT ARRIVES VIA EMS FROM HOME, C/O DIARRHEA X 2 WEEKS, TODAY SHE HAS BRIGHT RED BLOOD IN STOOL, SHE HAS HAD 3-4 STOOLS TODAY, SHE HAS HAD GENERALIZED ABDOMINAL PAIN, BUT IS WORST IN LLQ, AND PAIN IS CONSTANT AND CRAMPING, HAS HAD NAUSEA AND VOMITING WELL, VOMITED X 1 TODAY, SHE HAS NOT HAD FEVER, SHE HAS HAD DECREASED INTAKE --HAD A LITTLE BIT OF SOUP TODAY, SHE IS UNSURE OF OUTPUT, DUE TO THE DIARRHEA--THINKS SHE URINATES A LITTLE EVERY TIME SHE HAS DIARRHEA, SHE HAS NOT SOUGHT CARE AT ANY TIME FOR THIS PROBLEM, ONLY DIFFERENCE TODAY IS SHE NOTED BLOOD IN HER STOOL, SHE HAS HISTORY OF DIVERTICULITIS, WITH COLON RESECTION AND COLOSTOMY WITH LATER REVERSAL FOR COLON PERFORATION DUE TO DIVERTICULITIS. SHE HAS HAD APPENDECTOMY, CHOLECYSTECTOMY, HYSTERECTOMY/BSO. SHE ALSO HAS HISTORY OF DIABETES, CAD WITH STENTS, HTN. SHE IS NOT ON ASPIRIN OR BLOOD THINNERS When I saw pt this afternoon she was laying in her bed in the ICU, awake but appears ill. She states she is just weak. She still has some abdominal pain, nausea and diarrhea. Found to have C. Diff. Allergies and Home Medications Allergies Coded Allergies: sulfamethoxazole (Verified Allergy, Intermediate, VOMITTING/MIGRAINE, 01/26/18) trimethoprim (Verified Allergy, Intermediate, VOMITTING/MIGRAINE, 01/26/18) pentazocine (Unverified Adverse Reaction, Mild, N/V, HEAD ACHE, 01/26/18) Patient Home Medication List Home Medication List Reviewed: Yes Acetaminophen (Acetaminophen) 500 Mg Tablet, 1,000 MG PO Q6H PRN for PAIN-MILD, (Reported) Entered as Reported by: CARINE YOUNG on 05/13/16 1357 Albuterol Sulfate (Ventolin Hfa) 1 Puff Puff, 2 PUFF IH Q4H, (Reported) Entered as Reported by: MAICOL GUTIERREZ on 10/04/20 1206 Albuterol Sulfate (Albuterol Sulfate) 2.5 Mg/0.5 Ml Vial.neb, 2.5 MG INH Q4H, (Reported) Entered as Reported by: MAICOL GUTIERREZ on 10/04/20 1206 Brexpiprazole (Rexulti) 1 Mg Tablet, 1 MG PO DAILY, (Reported) Entered as Reported by: MAICOL GUTIERREZ on 10/04/20 1206 Cyclobenzaprine HCl (Cyclobenzaprine HCl) 10 Mg Tablet, 10 MG PO PRN, (Reported) Entered as Reported by: MAICOL GUTIERREZ on 10/04/20 1206 Cyclosporine (Restasis) 1 Each Droperette, 1 EACH OP DAILY, (Reported) Entered as Reported by: MAICOL GUTIERREZ on 10/04/20 1206 Fluticasone/Salmeterol (Advair 250-50 Diskus) 1 Each Blst.w.dev, 1 EACH IH BID, (Reported) Entered as Reported by: MAICOL GUTIERREZ on 10/04/20 1206 Gabapentin (Neurontin) 300 Mg Capsule, 300 MG PO BID, (Reported) Entered as Reported by: DIXIE ASH on 06/05/20 1627 Insulin Aspart (Novolog) 300 Units/3 Ml Cartridge, 15 UNITS SQ AC, (Reported) Entered as Reported by: MAICOL GUTIERREZ on 10/04/20 1206 Latanoprost/Pf (Latanoprost 0.005% Eye Drop) 7.5 Ml Drops, 7.5 ML OP HS, (Reported) Entered as Reported by: MAICOL GUTIERREZ on 10/04/20 1206 Metoprolol Tartrate (Metoprolol Tartrate) 25 Mg Tablet, 25 MG PO DAILY, (Reported) Entered as Reported by: CARINE YOUNG on 11/27/15 1722 Nitroglycerin (Nitroglycerin) 0.4 Mg Tab.subl, 0.4 MG SL Q4M, (Reported) Entered as Reported by: MAICOL GUTIERREZ on 10/04/20 1206 Pantoprazole Sodium (Pantoprazole Sodium) 40 Mg Tablet.dr, 40 MG PO DAILY, (Reported) Entered as Reported by: MAICOL GUTIERREZ on 10/04/20 1206 Prazosin HCl (Prazosin HCl) 1 Mg Capsule, 1 MG PO DAILY, (Reported) Entered as Reported by: MAICOL GUTIERREZ on 10/04/20 1206 Sacubitril/Valsartan (Entresto 24 mg-26 mg Tablet) 1 Each Tablet, 1 TAB PO BID, (Reported) Entered as Reported by: STEPHEN HORNE on 03/16/18 1243 Venlafaxine HCl (Effexor Xr) 150 Mg Cap.er.24h, 150 MG PO HS, (Reported) Entered as Reported by: DIXIE ASH on 06/05/20 1636 Venlafaxine HCl (Effexor Xr) 150 Mg Cap.er.24h, 150 MG PO DAILY Prescribed by: SANTOSH GENAO on 08/10/212038 Past Cswudan-Etbmuu-Ievmym Hx Patient Social History Smoking Status: Current Everyday Smoker Alcohol Use?: No Surgeries History of Surgeries: Yes Surgeries: Abdominal (Colostomy and reversal), Appendectomy, Gallbladder, Hysterectomy, Oophorectomy Respiratory History of Respiratory Disorde: Yes Respiratory Disorders: Asthma, Pneumonia, Pulmonary Embolism Cardiovascular History of Cardiac Disorders: Yes Cardiac Disorders: Coronary Artery Disease, Hypertension Neurological History of Neurological Disord: Yes Neurological Disorders: Seizure Disorder Genitourinary History of Genitourinary Disor: Yes Genitourinary Disorders: Kidney Infection, Kidney Stones, Renal Failure Gastrointestinal History of Gastrointestinal Di: Yes Gastrointestinal Disorders: Gastroesophageal Reflux, Diverticulosis, C-Diff, Gall Bladder Disease Musculoskeletal History of Musculoskeletal Dis: Yes Musculoskeletal Disorders: Degenerate Disk Disease, Chronic Back Pain HEENT History of HEENT Disorders: Yes HEENT Disorders: Glaucoma Hearing Impairment: Denies Cancer History of Cancer: Yes Cancer: Cervical Psychosocial History of Psychiatric Problem: Yes Behavioral Health Disorders: Anxiety, Depression Integumentary History of Skin or Integumenta: No Family Medical History Significant Family History: Heart Disease, Cancer Family Medial History: CANCER 19 MOTHER (PATIENT DOES NOT KNOW LOCATION) Review of Systems-General Constitutional: No chills, No fever Respiratory: cough (dry, occasional, chornic) Cardiovascular: No chest pain, No palpitations Gastrointestinal: abdominal pain (diffuse, worse in left quadrant), diarrhea; No hematemesis; heartburn, nausea, vomiting Genitourinary: dysuria, frequency; No hematuria, No incontinence Musculoskeletal: back pain, joint pain, muscle stiffness Psychiatric/Neurological: Anxiety, Seizure Physical Exam-General Problems Physical Exam General Appearance: mild distress, obese Eyes: Bilateral Eye PERRL, Bilateral Eye EOMI HEENT: pharynx normal; No scleral icterus (R), No scleral icterus (L) Neck: non-tender, supple Respiratory: chest non-tender, lungs clear, normal breath sounds, no accessory muscle use Cardiovascular: regular rate, rhythm, no murmur Gastrointestinal: normal bowel sounds; No distended (on palpation of LLQ); guarding, tenderness (on palpation of epigastric region and left quadrant), other (midline surgical scar) Extremities: no pedal edema, no calf tenderness Neurologic/Psychiatric: alert, normal mood/affect, oriented x 3 Skin: normal color, warm/dry Lymphatic: no adenopathy (neck, axilla or groin) Data Review Radiology Date of Exam:06/07/22 CT ABDOMEN/PELVIS W EXAMINATION: CT abdomen and pelvis with intravenous contrast. TECHNIQUE: Multiple contiguous axial images were obtained through the abdomen and pelvis after the uneventful administration of intravenous contrast. All CT scans use one or more of the following dose optimizing techniques: automated exposure control, MA and/or KvP adjustment based on patient size and exam type or iterative reconstruction. HISTORY: Left lower quadrant pain. COMPARISON: 09/23/2017. FINDINGS: Limited views of the lower thorax show small calcifications in the lung bases. The liver is normal without focal lesion. There is no biliary ductal dilation. Gallbladder is absent. Pancreas is normal. Spleen is normal. Adrenal glands are normal. The kidneys are normal. There is no hydronephrosis. Bladder is decompressed by a Smith catheter. There is liquid stool in the colon in keeping with a diarrheal illness. No bowel wall thickening. Surgical clips in the pelvis may represent prior sigmoid resection. No free fluid or air. No abdominal or pelvic lymphadenopathy. Aorta is normal in caliber without aneurysm. There is no suspicious osseus lesion. IMPRESSION: Liquid stool in the colon suggestive of a diarrheal illness. Dictated by: Dictated on workstation # [id number] Dict: 06/07/221953 Trans: 06/07/222225 PJE [id number] Interpreted by: ADRIANNA POZO MD Electronically signed by: ADRIANNA POZO MD 06/07/222225 Assessment/Plan Assessment/Plan Assessment/Plan C. difficile / Diarrhea Urinary tract infection Leukocytosis - improving Abdominal pain (L > R) - CT 06/07 negative for diverticulitis or perforation Hematochezia - observed once on 06/07 Metabolic acidosis Hypokalemia CAD with stent placement Insulin dependent DM-II COPD 8 years s/p colon resection for perforation History of diverticulosis History of polyps History of gastritis Current tobacco smoker Continue oral vancomycin and IVF for C. difficile. Continue ciprofloxacin for UTI Continue KCl replacement Continue pain management Supervisory-Addendum Brief Verification & Attestation Participated in pt care: history, MDM, physical Personally performed: exam, history, MDM, supervision of care Care discussed with: Medical Student Procedures: n/a Verification and Attestation of Medical Student E/M Service A medical student performed and documented this service. I then reviewed and verified all information documented by the medical student and made modifications to such information, when appropriate. I personally performed a physical exam, medical decision making and then discussed any differences between the notes and made revisions as necessary to create one note. Digna Mariscal , 06/08/22 , 13:51 THAD LAWS Jun 08, 2022 10:02 DIGNA MARISCAL DO Jun 08, 2022 13:45
[2022-06-08] MEDS: NICOTINE 21 MG (NICODERM) PATCH TD SCH (11:51)
[2022-06-08] MEDS: ONDANSETRON 4 MG/2 ML (SDV) Z0FRAN IV PRN (12:49)
[2022-06-08 13:59] VITALS: BP 108/58
[2022-06-08 16:52] VITALS: BP 154/76
[2022-06-08] MEDS: MELATONIN 3 MG TABLET PO PRN (19:35)
[2022-06-08 20:10] VITALS: BP 122/57
[2022-06-08 23:42] VITALS: BP 106/55
[2022-06-09 03:35] VITALS: BP 119/70
[2022-06-09] MEDS: VANCOMYCIN 125 MG CAPSULE PO SCH ×4 (05:32→23:33)
[2022-06-09] MEDS: NS IV 1000 ML 1,000 ML IV SCH (05:34)
[2022-06-09 05:56] LABS: BASOPHILS # (AUTO) 0.1 10^3/uL (0.0-0.1); BASOPHILS % (AUTO) 1 % (0-10); EOSINOPHILS # (AUTO) 0.1 10^3/uL (0.0-0.3); EOSINOPHILS % (AUTO) 1 % (0-10); HEMATOCRIT 34 % (35-52); HEMOGLOBIN 11.9 g/dL (11.5-16.0); LYMPHOCYTES # (AUTO) 2.8 10^3/uL (1.0-4.0); LYMPHOCYTES % (AUTO) 35 % (12-44); MEAN CORPUSCULAR HEMOGLOBIN 32 pg (25-34); MEAN CORPUSCULAR HGB CONC 35 g/dL (32-36); MEAN CORPUSCULAR VOLUME 91 fL (80-99); MONOCYTES # (AUTO) 0.8 10^3/uL (0.0-1.0); MONOCYTES % (AUTO) 10 % (0-12); NEUTROPHILS # (AUTO) 4.2 10^3/uL (1.8-7.8); NEUTROPHILS % (AUTO) 52 % (42-75); PLATELET COUNT 314 10^3/uL (130-400)
[2022-06-09 06:06] LABS: ALBUMIN 2.9 GM/DL (3.2-4.5); POTASSIUM 3.3 MMOL/L (3.6-5.0)
[2022-06-09 06:07] LABS: CALCIUM 8.4 MG/DL (8.5-10.1)
[2022-06-09 06:08] LABS: TOTAL PROTEIN 5.3 GM/DL (6.4-8.2)
[2022-06-09 06:10] LABS: BILIRUBIN,TOTAL 0.2 MG/DL (0.1-1.0)
[2022-06-09 06:12] LABS: CREATININE SERUM 0.87 MG/DL (0.60-1.30)
--- NOTE | 2022-06-09 07:35 | Progress Note - Hospitalist ---
Subjective HPI/CC On Admission Date Seen by Provider: Jun 09, 2022 Time Seen by Provider: 11:00 CC: Abdominal pain with diarrhea from C diff colitis and diverticulitis with UTI HPI: This is a 61yoWF clinic patient of [facility] who has a h/o heavy smoking and colon resection in the past who presents to the ICU with sepsis from C diff colitis and diverticulitis with UTI. Nicotine patch ordered. Pain improved currently. Vanc PO already ordered from ER admit. Moving down to floor. Dr Singh consulted. Upon review she had a recent exposure to 2 rounds of abx including Augmentin and Clinda. Subjective/Events-last exam No major issues Nicotine patch maintained Labs reviewed UCx pending No falls DC catheter today Review of Systems General: Fatigue, Malaise Focused Exam Lactate Level 06/07/22 19:12: Lactic Acid Level 1.34 Time of Focused Exam: 20:05 Objective Exam Vital Signs Vital Signs Date Time Temp Pulse Resp B/P (MAP) Pulse Ox O2 Delivery O2 Flow Rate FiO2 06/09/22 12:54 94 06/09/22 11:54 36.6 19 126/78 (94) 97 Room Air Capillary Refill : Less Than 3 Seconds General Appearance: No Apparent Distress, WD/WN, Chronically ill Respiratory: Lungs Clear, Normal Breath Sounds, Decreased Breath Sounds Cardiovascular: Regular Rate, Rhythm Neurologic/Psychiatric: Alert, Oriented x3, No Motor/Sensory Deficits, Normal Mood/Affect Results/Procedures Lab Laboratory Tests 06/09/22 05:21 Patient resulted labs reviewed. Assessment/Plan Assessment and Plan Assess & Plan/Chief Complaint Assessment: Abdominal pain from C diff colitis s/p 2 rounds of abx exposure h/o colon perforation with colostomy UTI Smoker Plan: Cipro for UTI Vanc PO HLIVF Critical Care Critically Ill Patient Clinical Quality Measures DVT/VTE Risk/Contraindication: Contraindications-Pharm: Other *list below* Other: TYSHAWN Fuller DO Jun 09, 2022 07:35
[2022-06-09 08:21] VITALS: BP 137/80
[2022-06-09] MEDS: DOCUSATE SODIUM 100 MG (COLACE) CAP PO SCH ×2 (08:50→19:17)
[2022-06-09] MEDS: NICOTINE 21 MG (NICODERM) PATCH TD SCH (08:50)
[2022-06-09] MEDS: PANTOPRAZOLE 40 MG (PROTONIX) VIAL IV SCH (08:50)
[2022-06-09] MEDS: SENNOSIDES 8.6 MG (SENOKOT) TAB PO SCH ×2 (08:50→19:17)
[2022-06-09] MEDS: NICOTINE PATCH REMOVAL TP SCH (08:51)
[2022-06-09] MEDS: CIPROFLOXACIN IV 400MG/200ML 200 ML IV SCH ×2 (08:51→19:16)
[2022-06-09] MEDS: ENOXAPARIN 40 MG/0.4 ML (LOVENOX) SYR SC SCH (08:51)
--- NOTE | 2022-06-09 09:26 | Progress Note - Surgery ---
THAD LAWS 06/09/22 0926: Subjective Date Seen by a Provider: Jun 09, 2022 Time Seen by a Provider: 09:00 Subjective/Events-last exam Patient awoken to complete exam. She appears far more comfortable and alert today than yesterday. She states her abdominal pain, still predominantly affecting the LLQ, has improved since yesterday and is now largely feels like "pressure". She has had no nausea this morning and no vomiting since before admission. She denies SOB, chest pain, chills, lightheadness, or dysuria. Per nursing, she had 1 loose non-bloody BM each day since admission; her most recent BM was midnight last night. She is on a regular texture high fiber diet and tolerating well. Review of Systems General: No Chills, No Night Sweats; Fatigue Pulmonary: No Dyspnea; Cough (dry, intermittent, chronic) Cardiovascular: No: Chest Pain, Palpitations Gastrointestinal: Abdominal Pain (affecting ), Diarrhea (reduced compared to yesterday); No: Nausea, Vomiting Genitourinary: No Dysuria, No Frequency Musculoskeletal: back pain Focused Exam Lactate Level 06/07/22 19:12: Lactic Acid Level 1.34 Time of Focused Exam: 20:05 Objective Exam Vital Signs Date Time Temp Pulse Resp B/P (MAP) Pulse Ox O2 Delivery O2 Flow Rate FiO2 06/09/22 08:21 36.5 98 20 137/80 (99) Room Air 06/09/22 07:00 94 06/09/22 03:35 36.1 84 16 119/70 (86) 96 Room Air 06/09/22 01:00 88 06/08/22 23:42 36.6 81 16 106/55 (72) 95 Room Air 06/08/22 20:10 36.7 95 18 122/57 (78) 99 Room Air 06/08/22 19:35 Room Air 06/08/22 19:00 107 06/08/22 16:52 36.3 86 18 154/76 (102) 99 Room Air 06/08/22 13:59 36.8 85 18 108/58 (75) 98 Room Air 06/08/22 12:35 85 06/08/22 12:15 100 Room Air 06/08/22 12:00 82 14 99/67 (77) 98 Room Air 06/08/22 11:51 36.4 06/08/22 11:00 78 20 106/55 (72) 98 Room Air 06/08/22 10:00 78 16 98 Room Air I & O 06/09/22 07:00 Intake Total 4290 ml Output Total 1625 ml Balance 2665 ml Capillary Refill : Less Than 3 Seconds General Appearance: No Apparent Distress, Chronically ill HEENT: Pharynx Normal, Moist Mucous Membranes Neck: Full Range of Motion, Normal Inspection, Non Tender Respiratory: Chest Non Tender, Lungs Clear, No Accessory Muscle Use, No Respiratory Distress, Decreased Breath Sounds Cardiovascular: Regular Rate, Rhythm, No Edema, No Murmur Peripheral Pulses: 1+ Dorsalis Pedis (R), 1+ Left Dors-Pedis (L) (See free t ext) Gastrointestinal: normal bowel sounds; No distended (on palpation of LLQ); guarding (on paplation of LLQ; decreased compared to yesterdays assessment), tenderness (on palpation of epigastric region and left quadrant; decreased co mpared to previous assessment), other (midline surgical scar) Extremity: Non Tender, No Calf Tenderness, No Pedal Edema Neurologic/Psychiatric: Alert, Oriented x3, Normal Mood/Affect Skin: Normal Color, Warm/Dry Lymphatic: No Adenopathy Results Lab Laboratory Tests 06/09/22 05:21: White Blood Count 8.0, Red Blood Count 3.74L, Hemoglobin 11.9, Hematocrit 34L, Mean Corpuscular Volume 91, Mean Corpuscular Hemoglobin 32, Mean Corpuscular Hemoglobin Concent 35, Red Cell Distribution Width 12.1, Platelet Count 314, Mean Platelet Volume 10.0, Immature Granulocyte % (Auto) 1, Neutrophils (%) (Auto) 52, Lymphocytes (%) (Auto) 35, Monocytes (%) (Auto) 10, Eosinophils (%) (Auto) 1, Basophils (%) (Auto) 1, Neutrophils # (Auto) 4.2, Lymphocytes # (Auto) 2.8, Monocytes # (Auto) 0.8, Eosinophils # (Auto) 0.1, Basophils # (Auto) 0.1, Immature Granulocyte # (Auto) 0.1, Sodium Level 142, Potassium Level 3.3L, Chloride Level 117H, Carbon Dioxide Level 15L, Anion Gap 10, Blood Urea Nitrogen 8, Creatinine 0.87, Estimat Glomerular Filtration Rate 76, BUN/Creatinine Ratio 9, Glucose Level 89, Calcium Level 8.4L, Corrected Calcium 9.3, Magnesium Level 2.0, Total Bilirubin 0.2, Aspartate Amino Transf (AST/SGOT) 15, Alanine Aminotransferase (ALT/SGPT) 12, Alkaline Phosphatase 75, Total Protein 5.3L, Albumin 2.9L Microbiology 06/07/22 C. difficile GDH Antigen & Toxins - Final, Complete 06/07/22 Urine Culture - Preliminary, Resulted Escherichia coli 06/07/22 Blood Culture - Preliminary, Resulted No growth Assessment/Plan Assessment/Plan Assessment/Plan C. difficile / Diarrhea Urinary tract infection Leukocytosis - resolved as of 06/09 Abdominal pain (L > R) - CT 06/07 negative for diverticulitis or perforation Hematochezia - observed once on 06/07 Metabolic acidosis Hypokalemia - improving CAD with stent placement Insulin dependent DM-II COPD 8 years s/p colon resection for perforation History of diverticulosis History of polyps History of gastritis Current tobacco smoker Continue oral vancomycin and IVF for C. difficile. Continue ciprofloxacin for UTI Continue KCl replacement Continue pain management Clinical Quality Measures DVT/VTE Risk/Contraindication: Contraindications-Pharm: Other *list below* Other: SAGE Tony DO 06/09/22 1204: Subjective Time Seen by a Provider: 11:37 Subjective/Events-last exam Pt seen and examined, states she is feeling better but still weak. She is asking when she can go home. She has a houser in place. Review of Systems General: No Chills, No Night Sweats; Fatigue Pulmonary: No Dyspnea; Cough (dry, intermittent, chronic) Cardiovascular: No: Chest Pain, Palpitations Gastrointestinal: Abdominal Pain (affecting ), Diarrhea (reduced compared to ); No: Nausea, Vomiting Genitourinary: No Dysuria, No Frequency Musculoskeletal: back pain Objective Exam General Appearance: No Apparent Distress, Chronically ill HEENT: Moist Mucous Membranes Respiratory: Chest Non Tender, Lungs Clear, No Accessory Muscle Use, No Respiratory Distress, Decreased Breath Sounds (at bases) Gastrointestinal: No distended (on palpation of LLQ); guarding (on paplation of LLQ; decreased compared to yesterdays assessment), tenderness (on palpation of epigastric region and left quadrant; decreased compared to previous assessment), other (midline surgical scar) Extremity: Non Tender, No Calf Tenderness, No Pedal Edema Neurologic/Psychiatric: Alert, Oriented x3 Assessment/Plan Assessment/Plan Assessment/Plan C. difficile / Diarrhea Urinary tract infection Leukocytosis - resolved as of 06/09 Abdominal pain (L > R) - CT 06/07 negative for diverticulitis or perforation Hematochezia - observed once on 06/07 Metabolic acidosis Hypokalemia - improving CAD with stent placement Insulin dependent DM-II COPD 8 years s/p colon resection for perforation Continue oral vancomycin and IVF for C. difficile. Continue ciprofloxacin for UTI Continue KCl replacement Continue pain management D/C Houser Encourage ambulation and IS use Supervisory-Addendum Brief Verification & Attestation Participated in pt care: history, MDM, physical Personally performed: exam, history, MDM, supervision of care Care discussed with: Medical Student Procedures: n/a Verification and Attestation of Medical Student E/M Service A medical student performed and documented this service. I then reviewed and verified all information documented by the medical student and made modifications to such information, when appropriate. I personally performed a physical exam, medical decision making and then discussed any differences between the notes and made revisions as necessary to create one note. Sage Mariscal , 06/09/22 , 12:05 THAD LAWS Jun 09, 2022 09:26 SAGE MARISCAL DO Jun 09, 2022 12:04
[2022-06-09 11:54] VITALS: BP 126/78
[2022-06-09] MEDS: ACETAMINOPHEN 325 MG TABLET PO PRN (14:34)
[2022-06-09 16:09] VITALS: BP 112/70
[2022-06-09 19:37] VITALS: BP 121/65
[2022-06-09 23:28] VITALS: BP 104/55
[2022-06-09] MEDS: MELATONIN 3 MG TABLET PO PRN (23:32)
[2022-06-10 03:23] VITALS: BP 112/67
[2022-06-10] MEDS: VANCOMYCIN 125 MG CAPSULE PO SCH ×3 (05:29→17:53)
[2022-06-10 05:53] LABS: BASOPHILS # (AUTO) 0.1 10^3/uL (0.0-0.1); BASOPHILS % (AUTO) 1 % (0-10); EOSINOPHILS # (AUTO) 0.1 10^3/uL (0.0-0.3); EOSINOPHILS % (AUTO) 2 % (0-10); HEMATOCRIT 33 % (35-52); HEMOGLOBIN 11.9 g/dL (11.5-16.0); LYMPHOCYTES # (AUTO) 2.6 10^3/uL (1.0-4.0); LYMPHOCYTES % (AUTO) 35 % (12-44); MEAN CORPUSCULAR HEMOGLOBIN 32 pg (25-34); MEAN CORPUSCULAR HGB CONC 36 g/dL (32-36); MEAN CORPUSCULAR VOLUME 90 fL (80-99); MEAN PLATELET VOLUME 9.9 fL (9.0-12.2); MONOCYTES # (AUTO) 0.6 10^3/uL (0.0-1.0); MONOCYTES % (AUTO) 8 % (0-12); NEUTROPHILS # (AUTO) 4.1 10^3/uL (1.8-7.8); NEUTROPHILS % (AUTO) 54 % (42-75); PLATELET COUNT 319 10^3/uL (130-400); WHITE BLOOD COUNT 7.6 10^3/uL (4.3-11.0)
[2022-06-10 06:19] LABS: ALBUMIN 2.9 GM/DL (3.2-4.5); POTASSIUM 3.3 MMOL/L (3.6-5.0)
[2022-06-10 06:20] LABS: CALCIUM 8.8 MG/DL (8.5-10.1)
[2022-06-10 06:21] LABS: TOTAL PROTEIN 5.4 GM/DL (6.4-8.2)
[2022-06-10 06:23] LABS: BILIRUBIN,TOTAL 0.2 MG/DL (0.1-1.0)
[2022-06-10 06:25] LABS: CREATININE SERUM 0.76 MG/DL (0.60-1.30)
[2022-06-10 06:28] LABS: MAGNESIUM 1.7 MG/DL (1.6-2.4)
--- NOTE | 2022-06-10 06:39 | Progress Note - Surgery ---
THAD LAWS 06/10/22 0639: Subjective Date Seen by a Provider: Jun 10, 2022 Time Seen by a Provider: 06:10 Subjective/Events-last exam Reports marked improvement in abdominal pain, describing 2-3/10 pain localized to the LLQ. Continues to deny nausea or vomiting. Admits to an intermittent, dry cough that she attributes to tobacco smoking and has been present for many years. Denies hemoptysis. Denies chest pain, SOB, dysuria, chills or dizziness. Review of Systems General: No Chills, No Night Sweats Pulmonary: No Dyspnea; Cough Cardiovascular: No: Chest Pain, Palpitations Gastrointestinal: Abdominal Pain, Diarrhea; No: Nausea, Vomiting Genitourinary: No Dysuria, No Frequency Musculoskeletal: back pain Focused Exam Lactate Level 06/07/22 19:12: Lactic Acid Level 1.34 Time of Focused Exam: 20:05 Objective Exam Vital Signs Date Time Temp Pulse Resp B/P (MAP) Pulse Ox O2 Delivery O2 Flow Rate FiO2 06/10/22 03:23 36.3 78 16 112/67 (82) 96 Room Air 06/09/22 23:28 36.2 72 16 104/55 (71) 97 Room Air 06/09/22 21:48 98 Room Air 06/09/22 19:37 37.0 81 18 121/65 (83) 97 Room Air 06/09/22 19:20 Room Air 06/09/22 19:00 88 06/09/22 16:09 36.9 76 20 112/70 (84) 96 Room Air 06/09/22 12:54 94 06/09/22 11:54 36.6 86 19 126/78 (94) 97 Room Air 06/09/22 08:21 36.5 98 20 137/80 (99) Room Air 06/09/22 08:00 Room Air 06/09/22 07:00 94 I & O 06/10/22 07:00 Intake Total 1236 ml Output Total 1000 ml Balance 236 ml Capillary Refill : Less Than 3 Seconds General Appearance: No Apparent Distress, Chronically ill HEENT: Moist Mucous Membranes Neck: Non Tender, Supple Respiratory: Lungs Clear, Normal Breath Sounds Cardiovascular: Regular Rate, Rhythm, No Edema, No Murmur Peripheral Pulses: 1+ Dorsalis Pedis (R), 1+ Left Dors-Pedis (L) (See free text) Gastrointestinal: normal bowel sounds; No guarding; tenderness (minimal on deep palpation of LLQ; decreased compared to previous assessment), other (midline surgical scar) Extremity: No Calf Tenderness, No Pedal Edema Neurologic/Psychiatric: Alert, Oriented x3 Skin: Normal Color, Warm/Dry Lymphatic: No Adenopathy Results Lab Laboratory Tests 06/10/22 05:40: White Blood Count 7.6, Red Blood Count 3.71L, Hemoglobin 11.9, Hematocrit 33L, Mean Corpuscular Volume 90, Mean Corpuscular Hemoglobin 32, Mean Corpuscular Hemoglobin Concent 36, Red Cell Distribution Width 11.9, Platelet Count 319, Mean Platelet Volume 9.9, Immature Granulocyte % (Auto) 1, Neutrophils (%) (A uto) 54, Lymphocytes (%) (Auto) 35, Monocytes (%) (Auto) 8, Eosinophils (%) (Auto) 2, Basophils (%) (Auto) 1, Neutrophils # (Auto) 4.1, Lymphocytes # (Auto) 2.6, Monocytes # (Auto) 0.6, Eosinophils # (Auto) 0.1, Basophils # (Auto) 0.1, Immature Granulocyte # (Auto) 0.1, Sodium Level 141, Potassium Level 3.3L, Chloride Level 114H, Carbon Dioxide Level 19L, Anion Gap 8, Blood Urea Nitrogen 6L, Creatinine 0.76, Estimat Glomerular Filtration Rate 89, BUN/Creatinine Ratio 8, Glucose Level 92, Calcium Level 8.8, Corrected Calcium 9.7, Magnesium Level 1.7, Total Bilirubin 0.2, Aspartate Amino Transf (AST/SGOT) 15, Alanine Aminotransferase (ALT/SGPT) 10, Alkaline Phosphatase 69, Total Protein 5.4L, Albumin 2.9L Microbiology 06/07/22 C. difficile GDH Antigen & Toxins - Final, Complete 06/07/22 Urine Culture - Final, Complete Escherichia coli 06/07/22 Blood Culture - Preliminary, Resulted No growth Assessment/Plan Assessment/Plan Assessment/Plan C. 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 difficile. Continue ciprofloxacin for UTI Continue KCl replacement Continue pain management Encourage ambulation and IS use Clinical Quality Measures DVT/VTE Risk/Contraindication: Contraindications-Pharm: Other *list below* Other: SAGE Tony DO 06/10/22 1336: Subjective Time Seen by a Provider: 12:37 Subjective/Events-last exam Pt seen and examined, states she would like to go home. Denies abdominal pain and states she is having loose stools, "but that is my normal". Review of Systems General: No Chills, No Night Sweats Pulmonary: No Dyspnea; Cough Cardiovascular: No: Chest Pain, Palpitations Gastrointestinal: Diarrhea; No: Nausea, Vomiting, Abdominal Pain Genitourinary: No Dysuria, No Frequency Musculoskeletal: back pain Objective Exam General Appearance: No Apparent Distress HEENT: Moist Mucous Membranes Respiratory: Lungs Clear, Normal Breath Sounds, No Accessory Muscle Use, No Respiratory Distress Cardiovascular: Regular Rate, Rhythm, No Murmur Gastrointestinal: soft, no organomegaly; No guarding; tenderness (minimal on deep palpation of LLQ; decreased compared to previous assessment), other (midline surgical scar) Extremity: No Calf Tenderness, No Pedal Edema Neurologic/Psychiatric: Alert, Oriented x3 Assessment/Plan Assessment/Plan Assessment/Plan C. 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 difficile. Continue ciprofloxacin for UTI Continue KCl replacement Continue pain management Encourage ambulation and IS use Supervisory-Addendum Brief Verification & Attestation Participated in pt care: history, MDM, physical Personally performed: exam, history, MDM, supervision of care Care discussed with: Medical Student Procedures: n/a Verification and Attestation of Medical Student E/M Service A medical student performed and documented this service. I then reviewed and verified all information documented by the medical student and made modifications to such information, when appropriate. I personally performed a physical exam, medical decision making and then discussed any differences between the notes and made revisions as necessary to create one note. Sage Singh , 06/10/22 , 13:36 THAD LAWS 13, 2023 06:39 SAGE SINGH DO Jun 10, 2022 13:36
[2022-06-10 08:01] VITALS: BP 121/72
[2022-06-10] MEDS: DOCUSATE SODIUM 100 MG (COLACE) CAP PO SCH ×2 (08:20→20:30)
[2022-06-10] MEDS: SENNOSIDES 8.6 MG (SENOKOT) TAB PO SCH ×2 (08:20→20:30)
[2022-06-10] MEDS: PANTOPRAZOLE 40 MG (PROTONIX) VIAL IV SCH (08:20)
[2022-06-10] MEDS: CIPROFLOXACIN IV 400MG/200ML 200 ML IV SCH ×2 (08:20→20:29)
[2022-06-10] MEDS: ENOXAPARIN 40 MG/0.4 ML (LOVENOX) SYR SC SCH (08:21)
[2022-06-10] MEDS: NICOTINE 21 MG (NICODERM) PATCH TD SCH (08:21)
[2022-06-10] MEDS: NICOTINE PATCH REMOVAL TP SCH (08:21)
--- NOTE | 2022-06-10 10:00 | Physical Therapy Evaluation ---
PT Evaluation-General Medical Diagnosis Admission Date Jun 07, 2022 at 20:58 Medical Diagnosis: sepsis Onset Date: Jun 07, 2022 Therapy Diagnosis Therapy Diagnosis: debility Height/Weight Height (Feet): 5 Height (Inches): 2.00 Weight (Pounds): 164 Weight (Ounces): 0.0 Precautions Precautions/Isolations: Standard Precautions Referral Physician: Anderson Reason for Referral: Evaluation/Treatment Medical History Pertinent Medical History: Alcoholism, Arthritis, CAD, COPD, HTN, [place], Rheumatoid Arthritis, Smoking Current History EMS secondary to abdominal pain Reviewed History: Yes Social History Home: Apartment Current Living Status: Alone Prior Prior Level of Function SCALE: Activities may be completed with or without assistive devices. 1-Sdoeadwaqk-rhrffqj completes the activity by him/herself with no assistance from a helper. 5-Set-up or Clean-up Assistance-helper sets up or cleans up; patient completes activity. Mars assists only prior to or following the activity. 4-Supervision or Touching Assistance-helper provides verbal cues and/or touching/steadying and/or contact guard assistance as patient completes activity. Assistance may be provided throughout the activity or intermittently. 3-Partial/Moderate Assistance-helper does LESS THAN HALF the effort. Mars lifts, holds or supports trunk or limbs, but provides less than half the effort. 2-Substantial/Maximal Assistance-helper does MORE THAN HALF the effort. Mars lifts or holds trunk or limbs and provides more than half the effort. 5-Puzhpzauh-jytpuo does ALL the effort. Patient does none of the effort to complete the activity. Or, the assistance of 2 or more helpers is required for the patient to complete the activity. If activity was not attempted, code reason: 7-Patient Refused. 9-Not Applicable-not attempted and the patient did not perform the activity before the current illness, exacerbation or injury. 10-Not Attempted due to Environmental Limitations-(lack of equipment, weather restraints, etc.). 88-Not Attempted due to Medical Conditions or Safety Concerns. Bed Mobility: 6 Transfers (B,C,W/C): 6 Gait: 6 Stairs: 6 Indoor Mobility (Ambulation): Independent Stairs: Independent Prior Devices Use: None PT Evaluation-Current Subjective Patient agrees to PT. Objective Patient Orientation: Normal For Age Attachments: IV ROM/Strength ROM Lower Extremities bilateral LE WFL Strength Lower Extremities 4+/5 grossly bilateral LE all planes Integumentary/Posture Integumentary refer to nursing notes Bowel Incontinence: No Bladder Incontinence: No Posture WFL Neuromuscular (Tone, Coordination, Reflexes) grossly intact Sensory Vision: Functional Hearing: Functional Transfers Lying to Sitting/Side of Bed(Q: 6 Sit to Stand (QC): 6 Chair/Chl-kb-Ggqrh Xfer(QC): 6 Gait Mode of Locomotion: Walk Anticipated Mode of Locomotion: Walk Walk 10 feet (QC): 6 Walk 50 ft with 2 Turns(QC): 6 Walk 150 ft (QC): 6 Gait Assistive Device: None Comments/Gait Description safe and functional with no deviation Balance Sitting Static: Normal Sitting Dynamic: Normal Standing Static: Normal Standing Dynamic: Normal Assessment/Needs Patient is currently at independent OF with all gross motor skills and does not require skilled PT intervention. Rehab Potential: Fair PT Plan Treatment/Plan Treatment Plan: Discontinue PT Treatment Duration: Jun 10, 2022 Frequency: 1 time per week Estimated Hrs Per Day: .25 hour per day Patient and/or Family Agrees t: Yes Time Time In: 820 Time Out: 830 DATE: Jun 10, 2022 Total Billed Treatment Time: 10 Total Billed Treatment 1 visit EVModC 10 min SCOTT NUR PT Jun 10, 2022 10:00
--- NOTE | 2022-06-10 10:17 | Occ Therapy Progress Note ---
Therapy Progress Note EVALUATION ONLY, patient at [facility] Jun 10, 2022 10:17
--- NOTE | 2022-06-10 10:24 | Occupational Therapy Eval ---
OT Evaluation-General/PLF Medical Diagnosis Admission Date Jun 07, 2022 at 20:58 Medical Diagnosis: sepsis Onset Date: Jun 07, 2022 Therapy Diagnosis Therapy Diagnosis: weakness Height/Weight Height (Feet): 5 Height (Inches): 2.00 Weight (Pounds): 164 Weight (Ounces): 0.0 Precautions Precautions/Isolations: Standard Precautions Weight Bear Status Weight Bearing Restriction: Full Weight Bearing Referral Physician: Anderson Referral Reason: Evaluation/Treatment Medical History Pertinent Medical History: Alcoholism, Arthritis, CAD, COPD, HTN, [place], Rheumatoid Arthritis, Smoking Current History This is a 61yoWF clinic patient of [facility] who has a h/o heavy smoking and colon resection in the past who presents with sepsis from C diff colitis and diverticu litis with UTI. Reviewed History: Yes Social History Home: Apartment Current Living Status: Alone ADL-Prior Level of Function SCALE: Activities may be completed with or without assistive devices. 7-Knbdctbndg-bnjbido completes the activity by him/herself with no assistance from a helper. 5-Set-up or Clean-up Assistance-helper sets up or cleans up; patient completes activity. Blanchard assists only prior to or following the activity. 4-Supervision or Touching Assistance-helper provides verbal cues and/or touching/steadying and/or contact guard assistance as patient completes activity. Assistance may be provided throughout the activity or intermittently. 3-Partial/Moderate Assistance-helper does LESS THAN HALF the effort. Blanchard lifts, holds or supports trunk or limbs, but provides less than half the effort. 2-Substantial/Maximal Assistance-helper does MORE THAN HALF the effort. Blanchard lifts or holds trunk or limbs and provides more than half the effort. 0-Rleyvjbea-edeffq does ALL the effort. Patient does none of the effort to complete the activity. Or, the assistance of 2 or more helpers is required for the patient to complete the activity. If activity was not attempted, code reason: 7-Patient Refused. 9-Not Applicable-not attempted and the patient did not perform the activity before the current illness, exacerbation or injury. 10-Not Attempted due to Environmental Limitations-(lack of equipment, weather restraints, etc.). 88-Not Attempted due to Medical Conditions or Safety Concerns. Self Care: Independent Functional Cognition: Independent Drive Self: Yes OT Current Status Subjective Patient in bathroom Independent w/ management of IV pole Mental Status/Objective Patient Orientation: Person, Place, Time, Situation Attachments: IV Current Glasses/Contacts: Yes Upper Extremity ROM BUE ROM WNLs Upper Extremity Coordination manages IV pole un/plugs t wall w/ safe demonstration Upper Extremity Strength BUE WFLs ADL-Treatment Eating (QC): 6 Oral Hygiene (QC): 6 Shower/Bathe Self (QC): 6 Upper Body Dressing (QC): 6 Lower Body Dressing (QC): 6 On/Off Footwear (QC): 6 Toileting Hygiene (QC): 6 Education OT Patient Education: Correct positioning, Energy conservation, Progress toward Goal/Update tx plan, Purpose of tx/functional activities, Reviewed precautions, Rehab process, Safety issues Teaching Recipient: Patient Teaching Methods: Demonstration, Discussion Response to Teaching: Return Demonstration OT Group Home Goals Sex Worker Or Escort Goals 1=Demonstrate adherence to instructed precautions during ADL tasks. 2=Patient will verbalize/demonstrate understanding of assistive devices/modifications for ADL. 3=Patient will improve strength/tolerance for activity to enable patient to perform ADL's. OT Education/Plan Problem List/Assessment Assessment: No Skilled OT Needs ID'd Discharge Recommendations Plan/Recommendations: Discontinue OT Treatment Plan/Plan of Care Treatment,Training & Education: No Patient would benefit from OT for education, treatment and training to promote independence in ADL's, mobility, safety and/or upper extremity function for ADL's. Plan of Care: OTHER (EVAL only) Treatment Duration: Jun 10, 2022 Frequency: 1 time per week Estimated Hrs Per Day: .25 hour per day Rehab Potential: Fair Ambulating in room, all needs met Time Start Time: 10:18 Stop Time: 10:30 DATE: Jun 10, 2022 Total Time Billed (hr/min): 12 Billed Treatment Time EVL 12 min ODETTE COOL OT Jun 10, 2022 10:24
[2022-06-10] MEDS ORDERED: VENL150C98 PO (10:50)
[2022-06-10] MEDS ORDERED: BUDE10.26 INH (10:50)
[2022-06-10] MEDS ORDERED: FENO134C21 PO (10:50)
[2022-06-10] MEDS ORDERED: METO-333 PO (10:50)
[2022-06-10] MEDS ORDERED: ACET-2267 PO (10:53)
[2022-06-10 11:58] VITALS: BP 121/66
[2022-06-10 12:13] VITALS: BP 121/66
[2022-06-10] MEDS ORDERED: CATHETER FLUSH 10 ML SYR IVP PRN (14:15)
--- NOTE | 2022-06-10 15:26 | Progress Note ---
Subjective Subjective/Events-last exam Patient states that she is feeling better. She is having some formed stools. Tolerating PO diet and fluids. Has been up walking around. Review of Systems General: Malaise Pulmonary: No Dyspnea; Cough Cardiovascular: No: Chest Pain, Palpitations, Edema Gastrointestinal: Abdominal Pain, Diarrhea; No: Nausea, Vomiting Neurological: No: Weakness Focused Exam Lactate Level 06/07/22 19:12: Lactic Acid Level 1.34 Time of Focused Exam: 20:05 Objective Exam Last Set of Vital Signs Vital Signs Date Time Temp Pulse Resp B/P (MAP) Pulse Ox O2 Delivery O2 Flow Rate FiO2 06/10/22 12:13 37.0 83 96 06/10/22 11:58 18 121/66 (84) Room Air Capillary Refill : Less Than 3 Seconds I&O Intake and Output 06/10/22 00:00 Intake Total 1336 ml Output Total 1500 ml Balance -164 ml Intake Oral 1336 ml Output Urine Total 1500 ml # Voids 1 # Bowel Movements 2 General: Alert, Oriented X3, No Acute Distress Lungs: Clear to Auscultation, Normal Air Movement Heart: Regular Rate, No Murmurs Abdomen: Normal Bowel Sounds, Soft, Other (mild to moderate ttp LLQ) Extremities: No Edema, No Tenderness/Swelling Neuro: Normal Speech Results/Procedures Lab Laboratory Tests 06/10/22 05:40: White Blood Count 7.6, Red Blood Count 3.71L, Hemoglobin 11.9, Hematocrit 33L, Mean Corpuscular Volume 90, Mean Corpuscular Hemoglobin 32, Mean Corpuscular Hemoglobin Concent 36, Red Cell Distribution Width 11.9, Platelet Count 319, Mean Platelet Volume 9.9, Immature Granulocyte % (Auto) 1, Neutrophils (%) (Auto) 54, Lymphocytes (%) (Auto) 35, Monocytes (%) (Auto) 8, Eosinophils (%) (Auto) 2, Basophils (%) (Auto) 1, Neutrophils # (Auto) 4.1, Lymphocytes # (Auto) 2.6, Monocytes # (Auto) 0.6, Eosinophils # (Auto) 0.1, Basophils # (Auto) 0.1, Immature Granulocyte # (Auto) 0.1, Sodium Level 141, Potassium Level 3.3L, Chloride Level 114H, Carbon Dioxide Level 19L, Anion Gap 8, Blood Urea Nitrogen 6L, Creatinine 0.76, Estimat Glomerular Filtration Rate 89, BUN/Creatinine Ratio 8, Glucose Level 92, Calcium Level 8.8, Corrected Calcium 9.7, Magnesium Level 1.7, Total Bilirubin 0.2, Aspartate Amino Transf (AST/SGOT) 15, Alanine Aminotransferase (ALT/SGPT) 10, Alkaline Phosphatase 69, Total Protein 5.4L, Albumin 2.9L Microbiology 06/07/22 C. difficile GDH Antigen & Toxins - Final, Complete 06/07/22 Urine Culture - Final, Complete Escherichia coli 06/07/22 Blood Culture - Preliminary, Resulted No growth Radiology Date of Exam:06/07/22 CT ABDOMEN/PELVIS W EXAMINATION: CT abdomen and pelvis with intravenous contrast. TECHNIQUE: Multiple contiguous axial images were obtained through the abdomen and pelvis after the uneventful administration of intravenous contrast. All CT scans use one or more of the following dose optimizing techniques: automated exposure control, MA and/or KvP adjustment based on patient size and exam type or iterative reconstruction. HISTORY: Left lower quadrant pain. COMPARISON: 09/23/2017. FINDINGS: Limited views of the lower thorax show small calcifications in the lung bases. The liver is normal without focal lesion. There is no biliary ductal dilation. Gallbladder is absent. Pancreas is normal. Spleen is normal. Adrenal glands are normal. The kidneys are normal. There is no hydronephrosis. Bladder is decompressed by a Smith catheter. There is liquid stool in the colon in keeping with a diarrheal illness. No bowel wall thickening. Surgical clips in the pelvis may represent prior sigmoid resection. No free fluid or air. No abdominal or pelvic lymphadenopathy. Aorta is normal in caliber without aneurysm. There is no suspicious osseus lesion. IMPRESSION: Liquid stool in the colon suggestive of a diarrheal illness. Dictated by: Dictated on workstation # [id number] Dict: 06/07/221953 Trans: 06/07/222225 [facility] [id number] Interpreted by: ADRIANNA POZO MD Electronically signed by: ADRIANNA POZO MD 06/07/222225 Assessment/Plan Assessment/Plan (1) Sepsis Status: Resolved Assessment & Plan: 06/10: Continue IV cipro for UTI and PO Vanc to cover C. diff, HDS (2) C. difficile enteritis Status: Acute (3) UTI (urinary tract infection) Status: Acute (4) IDDM (insulin dependent diabetes mellitus) Status: Acute Assessment & Plan: 06/10: SSI, continue home meds (5) CAD (coronary artery disease) Status: Chronic (6) COPD (chronic obstructive pulmonary disease) Status: Chronic (7) Essential (primary) hypertension Status: Chronic Clinical Quality Measures DVT/VTE Risk/Contraindication: Contraindications-Pharm: Other *list below* Other: FRANCISCO Verma MD Jun 10, 2022 15:26
[2022-06-10] MEDS: ANTACID SUSP 30 ML UDC (MYLANTA) PO PRN ×2 (15:44→15:48)
[2022-06-10] MEDS: CALCIUM CARBONATE 500 MG (TUMS) TAB.CHEW PO PRN (15:50)
[2022-06-10 16:38] VITALS: BP 127/81
[2022-06-10 19:51] VITALS: BP 136/78
[2022-06-10] MEDS: MELATONIN 3 MG TABLET PO PRN (20:32)
[2022-06-10] MEDS: ACETAMINOPHEN 325 MG TABLET PO PRN (20:33)
[2022-06-11] MEDS: VANCOMYCIN 125 MG CAPSULE PO SCH ×3 (00:16→11:58)
[2022-06-11] MEDS: CALCIUM CARBONATE 500 MG (TUMS) TAB.CHEW PO PRN (00:16)
[2022-06-11 00:21] VITALS: BP 116/74
[2022-06-11 04:13] VITALS: BP 131/77
[2022-06-11 05:43] LABS: BASOPHILS # (AUTO) 0.1 10^3/uL (0.0-0.1); BASOPHILS % (AUTO) 1 % (0-10); EOSINOPHILS # (AUTO) 0.1 10^3/uL (0.0-0.3); EOSINOPHILS % (AUTO) 2 % (0-10); HEMATOCRIT 35 % (35-52); HEMOGLOBIN 12.5 g/dL (11.5-16.0); LYMPHOCYTES # (AUTO) 2.4 10^3/uL (1.0-4.0); LYMPHOCYTES % (AUTO) 33 % (12-44); MEAN CORPUSCULAR HEMOGLOBIN 32 pg (25-34); MEAN CORPUSCULAR HGB CONC 36 g/dL (32-36); MEAN CORPUSCULAR VOLUME 89 fL (80-99); MEAN PLATELET VOLUME 9.8 fL (9.0-12.2); MONOCYTES # (AUTO) 0.6 10^3/uL (0.0-1.0); MONOCYTES % (AUTO) 8 % (0-12); NEUTROPHILS % (AUTO) 56 % (42-75); PLATELET COUNT 346 10^3/uL (130-400); WHITE BLOOD COUNT 7.2 10^3/uL (4.3-11.0)
[2022-06-11 06:00] LABS: ALBUMIN 3.2 GM/DL (3.2-4.5); POTASSIUM 3.2 MMOL/L (3.6-5.0)
[2022-06-11 06:01] LABS: CALCIUM 9.2 MG/DL (8.5-10.1)
[2022-06-11 06:02] LABS: TOTAL PROTEIN 5.8 GM/DL (6.4-8.2)
[2022-06-11 06:04] LABS: BILIRUBIN,TOTAL 0.2 MG/DL (0.1-1.0)
[2022-06-11 06:06] LABS: CREATININE SERUM 0.83 MG/DL (0.60-1.30)
[2022-06-11 06:09] LABS: MAGNESIUM 1.7 MG/DL (1.6-2.4)
[2022-06-11 08:14] VITALS: BP 139/74
[2022-06-11] MEDS: DOCUSATE SODIUM 100 MG (COLACE) CAP PO SCH (08:35)
[2022-06-11] MEDS: PANTOPRAZOLE 40 MG (PROTONIX) VIAL IV SCH (08:35)
[2022-06-11] MEDS: SENNOSIDES 8.6 MG (SENOKOT) TAB PO SCH (08:36)
[2022-06-11] MEDS: ENOXAPARIN 40 MG/0.4 ML (LOVENOX) SYR SC SCH (08:36)
[2022-06-11] MEDS: NICOTINE 21 MG (NICODERM) PATCH TD SCH (08:36)
[2022-06-11] MEDS: NICOTINE PATCH REMOVAL TP SCH (08:37)
[2022-06-11] MEDS: CIPROFLOXACIN IV 400MG/200ML 200 ML IV SCH (08:37)
--- NOTE | 2022-06-11 09:48 | Progress Note - Surgery ---
THAD LAWS 06/11/22 0948: Subjective Date Seen by a Provider: Jun 11, 2022 Time Seen by a Provider: 09:10 Subjective/Events-last exam This morning she denies all abdominal pain, nausea, or vomiting. She reports heartburn beginning last night for which she took Tums; she takes Protonix regularly at home and intermittently has reflux symptoms requiring additional antacids. She is able to ambulate the halls without difficulty. Per nursing, she is having some formed stools; they are still non-bloody and at a frequency of 1- 2x/day. She denies chills, night sweats, lightheadedness, night sweats, or shortness of breath. Review of Systems General: No Chills, No Night Sweats Pulmonary: No Dyspnea; Cough (dry, intermittent, chronic) Cardiovascular: No: Chest Pain, Palpitations Gastrointestinal: Other (reflux symptoms); No: Nausea, Vomiting, Abdominal Pain Genitourinary: No Dysuria, No Frequency Musculoskeletal: back pain Focused Exam Time of Focused Exam: 20:05 Objective Exam Vital Signs Date Time Temp Pulse Resp B/P (MAP) Pulse Ox O2 Delivery O2 Flow Rate FiO2 06/11/22 08:14 36.7 80 18 139/74 (95) 93 Room Air 06/11/22 04:13 36.0 73 18 131/77 (95) 94 Room Air 06/11/22 00:21 36.7 80 18 116/74 (88) 94 Room Air 06/10/22 20:00 Room Air 06/10/22 19:51 37.0 88 18 136/78 (97) 97 Room Air 06/10/22 16:38 36.9 79 18 127/81 (96) 94 Room Air 06/10/22 12:13 37.0 83 96 06/10/22 11:58 37.0 83 18 121/66 (84) 96 Room Air I & O 06/11/22 06:59 Intake Total 1860 ml Balance 1860 ml Capillary Refill : Less Than 3 Seconds General Appearance: No Apparent Distress HEENT: Moist Mucous Membranes Neck: Non Tender, Supple Respiratory: Lungs Clear, Normal Breath Sounds, No Accessory Muscle Use, No Respiratory Distress Cardiovascular: Regular Rate, Rhythm, No Murmur Peripheral Pulses: 1+ Dorsalis Pedis (R), 1+ Left Dors-Pedis (L) (See free text) Gastrointestinal: non tender, soft, no organomegaly, other Extremity: No Calf Tenderness, No Pedal Edema Neurologic/Psychiatric: Alert, Oriented x3 Skin: Normal Color, Warm/Dry Lymphatic: No Adenopathy (cervical) Results Lab Laboratory Tests 06/11/22 05:26: White Blood Count 7.2, Red Blood Count 3.93, Hemoglobin 12.5, Hematocrit 35, Mean Corpuscular Volume 89, Mean Corpuscular Hemoglobin 32, Mean Corpuscular Hemoglobin Concent 36, Red Cell Distribution Width 11.8, Platelet Count 346, Mean Platelet Volume 9.8, Immature Granulocyte % (Auto) 0, Neutrophils (%) (Auto) 56, Lymphocytes (%) (Auto) 33, Monocytes (%) (Auto) 8, Eosinophils (%) (Auto) 2, Basophils (%) (Auto) 1, Neutrophils # (Auto) 4.0, Lymphocytes # (Auto) 2.4, Monocytes # (Auto) 0.6, Eosinophils # (Auto) 0.1, Basophils # (Auto) 0.1, Immature Granulocyte # (Auto) 0.0, Sodium Level 142, Potassium Level 3.2L, Chloride Level 112H, Carbon Dioxide Level 20L, Anion Gap 10, Blood Urea Nitrogen 7, Creatinine 0.83, Estimat Glomerular Filtration Rate 80, BUN/Creatinine Ratio 8, Glucose Level 106H, Calcium Level 9.2, Corrected Calcium 9.8, Magnesium Level 1.7, Total Bilirubin 0.2, Aspartate Amino Transf (AST/SGOT) 18, Alanine Aminotransferase (ALT/SGPT) 13, Alkaline Phosphatase 72, Total Protein 5.8L, Albumin 3.2 Microbiology 06/07/22 C. difficile GDH Antigen & Toxins - Final, Complete 06/07/22 Urine Culture - Final, Complete Escherichia coli 06/07/22 Blood Culture - Preliminary, Resulted No growth Assessment/Plan Assessment/Plan Assessment/Plan C. 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 difficile. Continue ciprofloxacin for UTI Continue pain management Encourage ambulation and IS use Clinical Quality Measures DVT/VTE Risk/Contraindication: Contraindications-Pharm: Other *list below* Other: janett SAGE SINGH DO 06/11/225: Subjective Time Seen by a Provider: 11:26 Subjective/Events-last exam Pt seen and examined, states she is doing much better and ready to go home. No pain and BMs are starting to form. Review of Systems General: No Chills, No Night Sweats Pulmonary: No Dyspnea Cardiovascular: No: Chest Pain, Palpitations Gastrointestinal: Other (reflux symptoms); No: Nausea, Vomiting, Abdominal Pain Musculoskeletal: back pain Objective Exam General Appearance: No Apparent Distress HEENT: Moist Mucous Membranes Respiratory: Lungs Clear, Normal Breath Sounds, No Accessory Muscle Use, No Respiratory Distress Cardiovascular: Regular Rate, Rhythm, No Murmur Gastrointestinal: non tender, soft, no organomegaly Extremity: No Calf Tenderness, No Pedal Edema Neurologic/Psychiatric: Alert, Oriented x3 Assessment/Plan Assessment/Plan Assessment/Plan C. 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 difficile. Continue ciprofloxacin for UTI Continue pain management Encourage ambulation and IS use Ok to D/C home from surgery standpoint. Supervisory-Addendum Brief Verification & Attestation Participated in pt care: history, MDM, physical Personally performed: exam, history, MDM, supervision of care Care discussed with: Medical Student Procedures: n/a Verification and Attestation of Medical Student E/M Service A medical student performed and documented this service. I then reviewed and verified all information documented by the medical student and made modifications to such information, when appropriate. I personally performed a physical exam, medical decision making and then discussed any differences between the notes and made revisions as necessary to create one note. Sage Singh , 06/11/22 , 18:15 THAD LAWS Jun 11, 2022 09:48 SAGE SINGH DO Jun 11, 2022 18:15
[2022-06-11 11:27] VITALS: BP 133/70
--- NOTE | 2022-06-11 11:36 | Discharge Summary ---
Diagnosis/Chief Complaint Date of Admission Jun 07, 2022 at 20:58 Date of Discharge 06/11/22 Admission Diagnosis Admission Diagnosis See problem list Discharge Diagnosis See below Problems/Diagnosis: (1) Sepsis Assessment & Plan: 06/10: Continue IV cipro for UTI and PO Vanc to cover C. diff, HDS Status: Resolved Resolution Date/Time: 06/10/22 @ 15:32 (2) C. difficile enteritis Status: Acute (3) UTI (urinary tract infection) Status: Acute (4) IDDM (insulin dependent diabetes mellitus) Assessment & Plan: 06/10: SSI, continue home meds Status: Acute (5) CAD (coronary artery disease) Status: Chronic (6) COPD (chronic obstructive pulmonary disease) Status: Chronic (7) Essential (primary) hypertension Status: Chronic Discharge Summary-Simple/Stand Consultations Discharge Physical Examination Allergies: Coded Allergies: sulfamethoxazole (Verified Allergy, Intermediate, VOMITTING/MIGRAINE, 01/26/18) trimethoprim (Verified Allergy, Intermediate, VOMITTING/MIGRAINE, 01/26/18) pentazocine (Unverified Adverse Reaction, Mild, N/V, HEAD ACHE, 01/26/18) Vitals & I&Os Vital Sign - Last 12Hours Date Time Temp Pulse Resp B/P (MAP) Pulse Ox O2 Delivery O2 Flow Rate FiO2 06/11/22 11:27 36.2 83 18 133/70 (91) 94 Room Air Intake and Output 06/11/22 00:00 Intake Total 1560 ml Balance 1560 ml General Appearance: Alert, Oriented X3, No Acute Distress Respiratory: Clear to Auscultation, Normal Air Movement Cardiovascular: Regular Rate, No Murmurs Abdominal: Normal Bowel Sounds, Soft, No Tenderness, No Masses Extremities: No Edema, No Tenderness/Swelling Neuro: Normal Speech, Sensation Intact, Cranial Nerves 3-12 NL Psych/Mental Status: Mental Status NL, Mood NL Hospital Course See final discharge diagnosis. Radiology Reviewed Date of Exam:06/07/22 CT ABDOMEN/PELVIS W EXAMINATION: CT abdomen and pelvis with intravenous contrast. TECHNIQUE: Multiple contiguous axial images were obtained through the abdomen and pelvis after the uneventful administration of intravenous contrast. All CT scans use one or more of the following dose optimizing techniques: automated exposure control, MA and/or KvP adjustment based on patient size and exam type or iterative reconstruction. HISTORY: Left lower quadrant pain. COMPARISON: 09/23/2017. FINDINGS: Limited views of the lower thorax show small calcifications in the lung bases. The liver is normal without focal lesion. There is no biliary ductal dilation. Gallbladder is absent. Pancreas is normal. Spleen is normal. Adrenal glands are normal. The kidneys are normal. There is no hydronephrosis. Bladder is decompressed by a Smith catheter. There is liquid stool in the colon in keeping with a diarrheal illness. No bowel wall thickening. Surgical clips in the pelvis may represent prior sigmoid resection. No free fluid or air. No abdominal or pelvic lymphadenopathy. Aorta is normal in caliber without aneurysm. There is no suspicious osseus lesion. IMPRESSION: Liquid stool in the colon suggestive of a diarrheal illness. Dictated by: Dictated on workstation # [id number] Dict: 06/07/221953 Trans: 06/07/222225 [facility] [id number] Interpreted by: ADRIANNA POZO MD Electronically signed by: ADRIANNA POZO MD 06/07/222225 Discharge Condition at discharge stable Instructions to patient/family Please see electronic discharge instructions given to patient. Discharge Medications Reviewed and agree with Discharge Medication list on patient's Discharge Instruction sheet Clinical Quality Measures DVT/VTE Risk/Contraindication: Contraindications-Pharm: Other *list below* Other: FRANCISCO Verma MD Jun 11, 2022 11:36
[2022-06-11] MEDS ORDERED: VANC125C5 PO (11:43)
[2022-06-11] MEDS ORDERED: CIPR-225 PO (11:43)
--- NOTE | 2022-06-11 11:44 | Discharge Summary ---
Discharge [facility] Reconcile Patient Problems Problems Reviewed?: Yes Discharge Medications New, Converted or Re-Newed RX: Transmitted to Pharmacy New Medications: Ciprofloxacin HCl (Cipro) 500 Mg Tablet 500 MG PO BID, #10 TAB Vancomycin HCl (Vancomycin HCl) 125 Mg Capsule 125 MG PO Q6HR for 7 Days, #21 CAP Continued Medications: Acetaminophen (Tylenol Extra Strength) 500 Mg Tablet 1000 MG PO Q8H PRN for PAIN-MILD (1-4), TAB Albuterol Sulfate (Ventolin Hfa) 90 Mcg Hfa.aer.ad 2 PUFF IH Q4H PRN for SHORTNESS OF BREATH, PUFF Budesonide/Formoterol Fumarate (Budesonide-Formoterol 160-4.5) 160 Mcg-4.5 Mcg/Actuation Hfa.aer.ad 2 PUFF INH BID, EA Fenofibrate,Micronized (Fenofibrate) 134 Mg Capsule 134 MG PO HS, CAP Gabapentin (Neurontin) 300 Mg Capsule 300 MG PO HS, CAP Sacubitril/Valsartan (Entresto 24 mg-26 mg Tablet) 24 Mg-26 Mg Tablet 1 EA PO HS, TAB Venlafaxine HCl (Venlafaxine HCl ER) 150 Mg Cap.er.24h 150 MG PO HS, CAP Discontinued Medications: Metoprolol Tartrate (Metoprolol Tartrate) 25 Mg Tablet 25 MG PO HS, TAB Patient Instructions Goal/Follow Up Appt: 1 week with PCP Activity & Diet Discharge Diet: Eat Small Frequent Meals, Low Residue Activity as Tolerated: Yes FRANCISCO GUTIERREZ MD Jun 11, 2022 11:44
[2022-06-11 15:50] VITALS: BP 133/70
== END 2022-06-11 15:50 | disposition home or self-care (01) | DRG 872 ==
LOC: EDUNIT# 18:44 → ER 18:45 → ICU 20:58 → 4TH 06-08 13:25
PROVIDERS: ADMIT Internal Medicine; ATTEND Family Medicine
DX: A41.9 Sepsis, unspecified organism (principal); A04.72 Enterocolitis due to Clostridium difficile, not specified as recurrent; N39.0 Urinary tract infection, site not specified; K57.92 Diverticulitis of intestine, part unspecified, without perforation or abscess without bleeding; E86.0 Dehydration; E87.6 Hypokalemia; E11.9 Type 2 diabetes mellitus without complications; I25.10 Atherosclerotic heart disease of native coronary artery without angina pectoris; I10 Essential (primary) hypertension; F17.210 Nicotine dependence, cigarettes, uncomplicated; J44.9 Chronic obstructive pulmonary disease, unspecified; E78.00 Pure hypercholesterolemia, unspecified; G40.909 Epilepsy, unspecified, not intractable, without status epilepticus; K21.9 Gastro-esophageal reflux disease without esophagitis; M81.0 Age-related osteoporosis without current pathological fracture; M19.91 Primary osteoarthritis, unspecified site; M06.9 Rheumatoid arthritis, unspecified; M79.7 Fibromyalgia; F41.9 Anxiety disorder, unspecified; F31.9 Bipolar disorder, unspecified; R53.1 Weakness; R53.81 Other malaise; I25.2 Old myocardial infarction; Z86.711 Personal history of pulmonary embolism; H40.9 Unspecified glaucoma; Z85.41 Personal history of malignant neoplasm of cervix uteri; Z79.4 Long term (current) use of insulin; Z79.899 Other long term (current) drug therapy; Z88.2 Allergy status to sulfonamides; Z91.09 Other allergy status, other than to drugs and biological substances; Z20.822 Contact with and (suspected) exposure to COVID-19
CPT/HCPCS: 36415; 51702; 71045; 74177; 80053; 81000; 82150; 82274; 83605; 83690; 83735; 84100; 85007; 85025; 85027; 85610; 85652; 85730; 86141; 87015; 87040; 87045; 87046; 87077; 87088; 87186; 87324; 87449; 87636; 87899; 89055; 93041; 94760

== ENCOUNTER 2022-07-05 13:58 | Emergency (ER) | payer MEDICARE, MEDICAID ==
[~2022-07-05 13:58] MED LIST changes: +BUDE10.26 INH; +TOPI-241 PO; -TOPI50TA13 PO; +VANC125C5 PO
[2022-07-05] MEDS ORDERED: VANCOMYCIN INJECTION 1,000 MG in NS (IVPB) 250 ML IV ONE (14:30)
[2022-07-05] MEDS ORDERED: CEFEPIME INJECTION 1,000 MG in NS (IVPB) 50 ML IV ONE (14:30)
[2022-07-05] MEDS ORDERED: NOREPINEPHRINE 8 MG/250 ML 250 ML IV SCH (14:30)
--- NOTE | 2022-07-05 14:34 | ED Chest Pain ---
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 PT DENIES CP AT TIME OF TRIAGE. EMS REPORTS PT ADMITTED TO HOSPITAL 2-3 WEEKS AGO FOR SEPSIS. 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 PT C/O L ARM PAIN AT THIS TIME. PT STATES L ARM IS HARD TO MOVE. PT A&OX4 Source: patient Exam Limitations: no limitations History of Present Illness Date Seen by Provider: Jul 05, 2022 Time Seen by Provider: 14:01 Initial Comments 61-year-old female seen immediately upon arrival via EMS for reported hypotens ion. She was recently admitted to the hospital for C. difficile infection and reported sepsis. Record review shows she checked in for chest pain during that visit. She called the ambulance for chest pain once again today that started about 11:00. She describes a severe pressure in her left chest that radiates into her left arm. No cough. She does have a history of coronary artery disease, sees Dr. Dobbins. No fevers or chills. No abdominal pain. She does continue to have diarrhea. EMS reports hypotension in route, 60s systolic. She was given a liter of fluid IV bolus prior to arrival All other systems reviewed and negative except documented per HPI. Voice recognition software was used to help create this chart Allergies and Home Medications Allergies Coded Allergies: sulfamethoxazole (Verified Allergy, Intermediate, VOMITTING/MIGRAINE, 01/26/18) trimethoprim (Verified Allergy, Intermediate, VOMITTING/MIGRAINE, 01/26/18) pentazocine (Unverified Adverse Reaction, Mild, N/V, HEAD ACHE, 01/26/18) Patient Home Medication List Home Medication List Reviewed: Yes Acetaminophen (Tylenol Extra Strength) 500 Mg Tablet, 1,000 MG PO Q8H PRN for PAIN-MILD (1-4), (Reported) Entered as Reported by: MARGOTH LAUGHLIN on 06/10/22 1053 Albuterol Sulfate (Ventolin Hfa) 90 Mcg Hfa.aer.ad, 2 PUFF IH Q4H PRN for SHORTNESS OF BREATH, (Reported) Entered as Reported by: MAICOL GUTIERREZ on 10/04/20 1206 Budesonide/Formoterol Fumarate (Budesonide-Formoterol 160-4.5) 160 Mcg-4.5 Mcg/Actuation Hfa.aer.ad, 2 PUFF INH BID, (Reported) Entered as Reported by: MARGOTH LAUGHLIN on 06/10/22 1050 Ciprofloxacin HCl (Cipro) 500 Mg Tablet, 500 MG PO BID Prescribed by: FRANCISCO GUTIERREZ on 06/11/22 1143 Fenofibrate,Micronized (Fenofibrate) 134 Mg Capsule, 134 MG PO HS, (Reported) Entered as Reported by: MARGOTH LAUGHLIN on 06/10/22 1050 Gabapentin (Neurontin) 300 Mg Capsule, 300 MG PO HS, (Reported) Entered as Reported by: DIXIE ASH on 06/05/20 1627 Sacubitril/Valsartan (Entresto 24 mg-26 mg Tablet) 24 Mg-26 Mg Tablet, 1 EA PO HS, (Reported) Entered as Reported by: STEPHEN HORNE on 03/16/18 1243 Vancomycin HCl (Vancomycin HCl) 125 Mg Capsule, 125 MG PO Q6HR Prescribed by: FRANCISCO GUTIERREZ on 06/11/22 1143 Venlafaxine HCl (Venlafaxine HCl ER) 150 Mg Cap.er.24h, 150 MG PO HS, (Reported) Entered as Reported by: MARGOTH LAUGHLIN on 06/10/22 1050 Review of Systems Review of Systems Constitutional: see HPI Past Yemzpti-Udmeqh-Gxlpwi Hx Immunizations Up To Date Tetanus Booster (TDap): More than 5yrs PED Vaccines UTD: No Seasonal Allergies Seasonal Allergies: Yes Past Medical History Surgeries: Yes Abdominal, Appendectomy, Gallbladder, Hysterectomy, Oophorectomy Respiratory: Yes Asthma, Pneumonia, Pulmonary Embolism Currently Using CPAP: No Currently Using BIPAP: No Cardiac: Yes Coronary Artery Disease, Hypertension Neurological: Yes Seizure Disorder 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 Disorders: Yes (CERVICAL DYSPLASIA--S/P HYST/BSO) 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 Disorders: Denies CORE SHAPER SIDES History: Hysterectomy Sexually Transmitted Disease: No HIV/AIDS: No Genitourinary: Yes Kidney Infection, Kidney Stones, Renal Failure Gastrointestinal: Yes Gastroesophageal Reflux, Diverticulosis, C-Diff, Gall Bladder Disease Musculoskeletal: Yes Degenerate Disk Disease, Chronic Back Pain Endocrine: Yes Diabetes, Insulin dep HEENT: Yes Glaucoma Loss of Vision: Denies Hearing Impairment: Denies Cancer: Yes Cervical Did You Recieve Any Treatments: Yes What Type of Treatment Did You: Surgical Intervention Psychosocial: Yes Anxiety, Depression Integumentary: No Blood Disorders: Yes (hx of anemia) Adverse Reaction/Blood Tranf: No Family Medical History Reviewed Nursing Family Hx CANCER 19 MOTHER (PATIENT DOES NOT KNOW LOCATION) Heart Disease, Cancer SOCIAL HISTORY: -SMOKES 1 PPD -DENIES ETOH USE -DENIES DRUG USE PAST SURGICAL HISTORY: -BREAST BIOPSY -APPENDECTOMY -CHOLECYSTECTOMY -HYSTERECTOMY / BILATERAL SALPINGO-OOPHORECTOMY -CARDIAC CATHS --MO WITH ANGIOPLASTY AND STENTS X 2 TO LEFT CIRCUMFLEX AND ANGIOPLASTY TO LAD 10/2014 -COLON RESECTION WITH COLOSTOMY FOR PERFORATED DIVERTICULUM 05/2014, AND LATER REVERSAL 07/2014 -EGD'S AND COLONOSCOPIES -CARDIAC CATH 10/04/[address] DOBBINS: CONCLUSION: 1. Patent stent in the left main extending to the circumflex artery that is a dominant artery with excellent flow distally 2. Mild to moderate disease in the LAD nonobstructive disease, ostial LAD has about 40 to 50% stenosis nonobstructive disease 3. Mildly elevated left ventricular end-diastolic pressure DISCUSSION AND RECOMMENDATION: Continue to maximize medical therapy Physical Exam Vital Signs Vital Signs - First Documented 07/05/22 14:03 Temp 36.4 Pulse 82 Resp 17 B/P (MAP) 90/74 (79) Pulse Ox 100 O2 Delivery Room Air O2 Flow Rate 2.00 Capillary Refill : Less Than 3 Seconds Height, Weight, BMI Height: 5'2.00" Weight: 164lbs. 0.0oz. 74.995365fs; 27.25 BMI Method:Stated General Appearance: Other (Patient looks acutely ill. She is moaning in pain. She is answering questions appropriately.) HEENT: Normal ENT Inspection, Pharynx Normal Neck: Normal Inspection, Non Tender, Supple Respiratory: Chest Non Tender, Lungs Clear, Normal Breath Sounds, No Accessory Muscle Use, No Respiratory Distress Cardiovascular: Regular Rate, Rhythm, No Murmur, Other (Weak peripheral pulses) Gastrointestinal: Normal Bowel Sounds, Non Tender, Soft Extremity: Normal Capillary Refill, Normal Inspection, Normal Range of Motion, Non Tender, No Calf Tenderness, Other (Weak peripheral pulses) Neurologic/Psychiatric: Alert, Oriented x3, No Motor/Sensory Deficits, Normal Mood/Affect Skin: Normal Color, Warm/Dry Focused Exam Lactate Level 07/05/22 14:20: Lactic Acid Level 1.19 Lactic Acid Level Laboratory Tests Test 07/05/22 14:20 Lactic Acid Level 1.19 MMOL/L (0.50-2.00) Procedures/Interventions Lumen: triple Central Line Procedure: betadine prep, sterile drapes applied, sterile dressing applied Position: femoral (R) Anesthesia: local Complications: none Post Position: sutured, good blood return Date of ETT Placement: Feb 11, 2016 Time of ETT Placement: 1341 Critical Care Note Critical Care Total Time (minutes) 75 Progress/Results/Core Measures Results/Orders Lab Results Laboratory Tests Test 07/05/22 14:20 Range/Units White Blood Count 11.1 H 4.3-11.0 10^3/uL Red Blood Count 4.78 3.80-5.11 10^6/uL Hemoglobin 15.1 11.5-16.0 g/dL Hematocrit 45 35-52 % Mean Corpuscular Volume 94 80-99 fL Mean Corpuscular Hemoglobin 32 25-34 pg Mean Corpuscular Hemoglobin Concent 34 32-36 g/dL Red Cell Distribution Width 13.0 10.0-14.5 % Platelet Count 387 130-400 10^3/uL Mean Platelet Volume 10.0 9.0-12.2 fL Immature Granulocyte % (Auto) 0 % Neutrophils (%) (Auto) 72 42-75 % Lymphocytes (%) (Auto) 17 12-44 % Monocytes (%) (Auto) 10 0-12 % Eosinophils (%) (Auto) 1 0-10 % Basophils (%) (Auto) 0 0-10 % Neutrophils # (Auto) 8.0 H 1.8-7.8 X 10^3 Lymphocytes # (Auto) 1.9 1.0-4.0 X 10^3 Monocytes # (Auto) 1.1 H 0.0-1.0 X 10^3 Eosinophils # (Auto) 0.1 0.0-0.3 10^3/uL Basophils # (Auto) 0.0 0.0-0.1 10^3/uL Immature Granulocyte # (Auto) 0.0 0.0-0.1 10^3/uL Prothrombin Time 14.5 12.2-14.7 SEC INR Comment 1.1 0.8-1.4 Activated Partial Thromboplast Time 35 24-35 SEC Sodium Level 132 L 135-145 MMOL/L Potassium Level 4.1 3.6-5.0 MMOL/L Chloride Level 101 98-107 MMOL/L Carbon Dioxide Level 15 L 21-32 MMOL/L Anion Gap 16 H 5-14 MMOL/L Blood Urea Nitrogen 28 H 7-18 MG/DL Creatinine 4.22 H 0.60-1.30 MG/DL Estimat Glomerular Filtration Rate 11 BUN/Creatinine Ratio 7 Glucose Level 117 H 70-105 MG/DL Lactic Acid Level 1.19 0.50-2.00 MMOL/L Calcium Level 9.6 8.5-10.1 MG/DL Corrected Calcium 9.4 8.5-10.1 MG/DL Total Bilirubin 0.4 0.1-1.0 MG/DL Aspartate Amino Transf (AST/SGOT) 18 5-34 U/L Alanine Aminotransferase (ALT/SGPT) 23 0-55 U/L Alkaline Phosphatase 84 40-136 U/L Troponin I < 0.028 <0.028 NG/ML Total Protein 7.6 6.4-8.2 GM/DL Albumin 4.2 3.2-4.5 GM/DL Micro Results Microbiology 07/05/22 Urine Culture - Final, Complete NO GROWTH 07/05/22 Blood Culture - Preliminary, Resulted No growth 07/05/22 Blood Culture - Preliminary, Resulted No growth My Orders Orders - TANVIR TAYLOR DO Cbc With Automated Diff (07/05/22 14:28) Comprehensive Metabolic Panel (07/05/22 14:28) Blood Culture (07/05/22 14:28) Urine Culture (07/05/22 14:28) Protime With Inr (07/05/22 14:28) Partial Thromboplastin Time (07/05/22 14:28) Chest 1 View, Ap/Pa Only (07/05/22 14:28) Ed Iv/Invasive Line Start (07/05/22 14:28) Ed Iv/Invasive Line Start (07/05/22 14:28) Vital Signs Adult Sepsis Patie Q15M (07/05/22 14:28) O2 (07/05/22 14:28) Remove Rings In Anticipation O (07/05/22 14:28) Lactic Acid Analyzer (07/05/22 14:28) Cefepime Injection (Maxipime Injection) (07/05/22 14:30) Vancomycin Injection (Vancomycin Injecti (07/05/22 14:30) Ct Angio Chest W(R/O Tad) (07/05/22 14:34) Ns Iv 1000 Ml (Sodium Chloride 0.9%) (07/05/22 15:00) Ct Polly Chest/Noang Abd-Pelv W (07/05/22 14:46) Iohexol Injection (Omnipaque 350 Mg/Ml 1 (07/05/22 15:00) Received Contrast (Hold Metformin- Contr (07/05/22 15:00) Ns (Ivpb) (Sodium Chloride 0.9% Ivpb Bag (07/05/22 15:00) Ns Iv 1000 Ml (Sodium Chloride 0.9%) (07/05/22 16:00) Ns Iv 1000 Ml (Sodium Chloride 0.9%) (07/05/22 16:07) Troponin I Georgi (07/05/22 16:40) Ekg Tracing (07/05/22 14:05) Medications Given in ED Vital Signs/I&O 07/05/22 07/05/22 07/05/22 07/05/22 14:03 14:03 14:45 16:28 Temp 36.4 Pulse 82 80 Resp 17 B/P (MAP) 90/74 (79) 90/66 (74) 70/40 Pulse Ox 100 100 O2 Delivery Room Air Nasal Cannula O2 Flow Rate 2.00 2.00 07/05/22 18:18 Pulse 81 Resp 17 B/P (MAP) 100/51 Pulse Ox 100 O2 Delivery Room Air Blood Pressure Mean: 79 Departure Communication (Admissions) On arrival patient is moaning in pain, mostly complaining of left arm pain that goes into her left chest wall. She does endorse some shortness of breath as well. EMS states on their arrival oxygen saturation was 87 to 88% on room air. She was placed on oxygen and transported here. She was profoundly hypotensive during the transport, 167 systolic. They gave her a liter IV fluid bolus. On arrival her blood pressure is very difficult as they seem to be different on either side of her arm and even different in each arm at different times back to back. This is treated with manual blood pressures as well. He had a couple readings in the 130s systolic and then several other readings in the 8090 sy stolic range. She does have thready pulses in the bilateral upper extremities and femoral pulses but she is alert, oriented and able to answer all questions and mentating well. We had started the central line initially and was concern for possible aortic dissection. Her creatinine is significantly elevated and she has been poor GFR however they do prudent to look at the chest vasculature to further delineate this so we will head with the CT scan. We will order the abdomen pelvis without contrast given her GFR. This is likely necessary once again as she recently had C. difficile and diverticulitis. Need to check for perforation or toxic megacolon. In the interim the patient was started on broad-spectrum antibiotics. We do have Levophed at bedside ready to be infusing should she acutely decompensate. She is getting IV fluids. Patient febrile started downtrending blood pressures once again. She started on broad-spectrum antibiotics early on in her hospital course. She seems to be doing well with Levophed and blood pressures increased with MAP around 70-75. She is still mentating well though she is continually somnolent. Given her acute kidney injury, the hospitalist is reluctant to keep her here especially since this is new from her recent discharge. I spoke to Dr. Conde at [facility] ICU who accepts the patient in transfer. Impression Primary Impression: Chest pain Qualified Codes: R07.9 - Chest pain, unspecified Additional Impression: Hypotension Qualified Codes: I95.9 - Hypotension, unspecified Disposition: 02 XFER SHT-TRM HOSP Condition: Stable Departure-Patient Inst. Referrals: DIXIE ZELAYA MD (PCP/Family) Primary Care Physician TANVIR TAYLOR DO Jul 05, 2022 14:34
[2022-07-05 14:42] LABS: ALBUMIN 4.2 GM/DL (3.2-4.5)
[2022-07-05 14:43] LABS: POTASSIUM 4.1 MMOL/L (3.6-5.0)
[2022-07-05 14:44] LABS: CALCIUM 9.6 MG/DL (8.5-10.1)
[2022-07-05 14:45] LABS: TOTAL PROTEIN 7.6 GM/DL (6.4-8.2)
[2022-07-05 14:47] LABS: BILIRUBIN,TOTAL 0.4 MG/DL (0.1-1.0)
[2022-07-05 14:49] LABS: CREATININE SERUM 4.22 MG/DL (0.60-1.30)
[2022-07-05 14:52] LABS: BASOPHILS % (AUTO) 0 % (0-10); EOSINOPHILS # (AUTO) 0.1 10^3/uL (0.0-0.3); EOSINOPHILS % (AUTO) 1 % (0-10); HEMATOCRIT 45 % (35-52); HEMOGLOBIN 15.1 g/dL (11.5-16.0); LYMPHOCYTES # (AUTO) 1.9 X 10^3 (1.0-4.0); LYMPHOCYTES % (AUTO) 17 % (12-44); MEAN CORPUSCULAR HEMOGLOBIN 32 pg (25-34); MEAN CORPUSCULAR HGB CONC 34 g/dL (32-36); MEAN CORPUSCULAR VOLUME 94 fL (80-99); MONOCYTES # (AUTO) 1.1 X 10^3 (0.0-1.0); MONOCYTES % (AUTO) 10 % (0-12); NEUTROPHILS % (AUTO) 72 % (42-75); PLATELET COUNT 387 10^3/uL (130-400); WHITE BLOOD COUNT 11.1 10^3/uL (4.3-11.0)
[2022-07-05 15:00] LABS: INR 1.1 (0.8-1.4); PROTHROMBIN TIME PATIENT 14.5 SEC (12.2-14.7)
[2022-07-05] MEDS ORDERED: HOLD METFORMIN - RECEIVED CONTRAST 20 ML VIAL IV SCH (15:00)
[2022-07-05] MEDS ORDERED: IOHEXOL 350 MG/ML 100 ML (OMNIPAQUE 350) VIAL IV ONE (15:00)
[2022-07-05] MEDS ORDERED: NS IV 1000 ML 1,000 ML IV SCH ×2 (15:00→16:00)
[2022-07-05] MEDS ORDERED: NS 100 ML (IVPB) BAG IV ONE (15:00)
--- NOTE | 2022-07-05 15:39 | Diagnostic Imaging Report ---
INDICATION: Hypotension, chest pain. TECHNIQUE: Single view chest 3:41 PM. CORRELATION STUDY: 06/07/2022 FINDINGS: The heart size, mediastinal configuration and pulmonary vascularity are within normal limits. The lungs are clear with no consolidating infiltrate. Innumerable micronodules are present, likely scattered calcified granulomas. There is no significant effusion or pneumothorax. IMPRESSION: 1. Negative for acute abnormality of the chest. Dictated by: Dictated on workstation # [id number]
--- NOTE | 2022-07-05 15:54 | Diagnostic Imaging Report ---
INDICATION: Chest pain, diffuse abd pain, hypotension, recent C Diff and diverticulitis, low oxygen saturation. CTA chest, abdomen and pelvis. Thin axial sections through the chest, abdomen and pelvis are obtained following intravenous contrast bolus. Multiplanar MIP images were reconstructed and reviewed. All CT scans use one or more of the following dose optimizing techniques: automated exposure control, MA and/or KvP adjustment based on patient size and exam type or iterative reconstruction. CORRELATION STUDY: CTA chest from 08/10/2021, CT abdomen and pelvis from 06/07/2022. FINDINGS: CTA CHEST: Heart size is normal without disproportionate right heart strain. No pericardial effusion. Thoracic aorta is unremarkable. There is no pulmonary artery filling defect to suggest pulmonary embolism. There are innumerable small microcalcifications throughout both lung nam. No concerning pulmonary infiltrate. No suspicious pulmonary mass. No pleural effusion. CT ABDOMEN and PELVIS: Liver size is normal with fatty infiltration. Gallbladder is absent. No significant bile duct dilatation. Spleen,, pancreas and adrenal glands are without acute abnormality. Subtle low-attenuating lesions in the kidneys favor probable cysts but incompletely characterized. No hydronephrosis. There is mild wall calcification of the abdominal aorta, nonaneurysmal. Distal colon anastomotic suture line. There is fluid throughout the gastrointestinal tract including to the level of the rectum. Colon has somewhat featureless appearance. Question mucosal enhancement of the gastrointestinal tract. No definitive obstructive feature. No abdominal ascites and/or free air. No manfred contrast extravasation. Urinary bladder is decompressed. Uterus is absent. A right-sided femoral line tip terminating near the confluence to the IVC. Osseous structures demonstrate no acute abnormality. IMPRESSION: CTA CHEST: 1. No CTA evidence for pulmonary embolism or acute thoracic syndrome. CT ABDOMEN and PELVIS: 1. Fluid throughout the gastrointestinal tract, consistent with diarrheal state. Mucosal enhancement may reflect nonspecific enteritis/colitis. Dictated by: Dictated on workstation # [id number]
[2022-07-05] MEDS ORDERED: NS IV 1000 ML 1,000 ML ONE (16:07)
[2022-07-05 18:18] VITALS: BP 100/51
== END 2022-07-05 18:20 | disposition other institution (70) ==
LOC: EDUNIT# 13:58 → ER 13:59
DX: R07.89 Other chest pain (principal); I95.9 Hypotension, unspecified; M79.602 Pain in left arm; R06.02 Shortness of breath; E11.9 Type 2 diabetes mellitus without complications; F17.210 Nicotine dependence, cigarettes, uncomplicated; Z79.4 Long term (current) use of insulin; Z88.2 Allergy status to sulfonamides; Z88.1 Allergy status to other antibiotic agents; Z28.310 Unvaccinated for COVID-19
CPT/HCPCS: 36415; 36556; 51702; 71045; 71275; 74177; 80053; 83605; 84484; 85025; 85610; 85730; 87040; 87088; 93005

== ENCOUNTER 2022-07-17 17:58 | Observation (INO) | payer MEDICARE, MEDICAID ==
[~2022-07-17] VITALS: Ht 157.5 cm; Wt 64.6 kg
[2022-07-17] VITALS (7 sets, daily range): BP systolic 97–142; BP diastolic 46–72
[2022-07-17 18:27] LABS: BILIRUBIN,URINE NEGATIVE (NEGATIVE); CLARITY,URINE CLOUDY; COLOR,URINE ORANGE; GLUCOSE, URINE (UA) NEGATIVE (NEGATIVE); KETONES,URINE NEGATIVE (NEGATIVE); LEUKOCYTE ESTERASE ,URINE TRACE (NEGATIVE); NITRITE,URINE NEGATIVE (NEGATIVE); PROTEIN,URINE 2+ (NEGATIVE)
[2022-07-17] MEDS ORDERED: LACTATED RINGERS 1,000 ML IV ONE ×2 (18:30→19:30)
--- NOTE | 2022-07-17 18:35 | ED GI ---
General Chief Complaint: Abdominal/GI Problems Stated Complaint: DIARRHEA Source of Information: Patient ( DIFFICULT HISTORIAN--CHANGES STORY), Old Records History of Present Illness Date Seen by Provider: Jul 17, 2022 Time Seen by Provider: 18:20 Initial Comments PT ARRIVES VIA POV FROM HOME--ARRIVES WITH SUITCASE PT STATES FOR THE LAST 3 DAYS SHE HAS BEEN HAVING DIARRHEA AND "LOTS OF GAS" AND OCCASIONAL MILD ABDOMINAL CRAMPING BEFORE A BM NO BLACK/BLOODY/TARRY STOOLS PT STATES SHE HAS HAD 12 STOOLS TODAY, THE LAST ONE WAS AN HOUR AGO, AND IT WAS FORMED STOOL. PT STATES IS STILL EATING AND DRINKING NORMALLY, AND VOIDING NORMALLY ( SHE LATER STATES SHE HAS NOT EATEN ANYTHING AT ALL TODAY, AND HAS SLEPT THE ENTIRE DAY, AND HASN'T BEEN DRINKING ANYTHING AT ALL TODAY, BECAUSE SHE'S BEEN ASLEEP ALL DAY) SHE HAS ALSO STATED THAT SHE HAS "BEEN DRINKING LOTS OF WATER ALL DAY", AND SHE ALSO SAID ON ARRIVAL THAT SHE HAS BEEN EATING A BUNCH OF WHEAT BREAD TODAY AND THAT HAS HELPED HER STOOLS BECOME FORMED TODAY. NO FEVER NO NAUSEA/VOMITING PT STATES SHE HAS BEEN TOLD SHE IS LACTOSE INTOLERANT, BUT SHE HAS BEEN DRINKING MILK ALL THIS WEEK, EVERY DAY. SHE HAS NOT TAKEN ANYTHING FOR SYMPTOMS AT ANY TIME SHE HAS NOT SOUGHT CARE AT ANY TIME FOR THIS SYMPTOMS ARE NO DIFFERENT TODAY, AND HER LAST STOOL WAS FORMED STATES SHE IS HERE "BECAUSE I DON'T KNOW IF IT'S GONNA BE BACK" PT HAS HAD C.DIFFICILE IN THE PAST SHE WAS ADMIITED HERE 06/07-06/11/22 FOR SEPSIS, UTI, WITH C. DIFFICILE. SHE WAS HERE 07/05/22 FOR COMPLAINT OF CHEST PAIN AND WAS TRANSFERRED TO [facility] AT THAT TIME. SHE HAD REPORTED AT THAT VISIT SHE WAS STILL HAVING DIARRHEA FROM HER ADMIT IN MAY WITH C. DIFFICILE. SHE HAD ACUTE KIDNEY INJURY AT THAT VISIT, AND WAS SEVERELY HYPOTENSIVE AND WAS ON LEVOPHED DRIP AT TIME OF TRANSFER. PT REPORTS THAT SHE HAD A STROKE AT THAT ADMIT AT [facility], AND HAD LEFT SIDE WEAKNESS WHICH HAS RESOLVED SHE DID NOT REPORT RECEIVING ANY TPA OR BLOOD THINNERS, AND SHE IS ONLY ON HER REGULAR DOSE OF ASPIRIN AND NO OTHER BLOOD THINNERS, AND WAS NOT PRESCRIBED ANY BLOOD THINNERS WHEN SHE WAS DISMISSED. SHE WAS NOT REFERRED TO NEUROLOGY FOR FOLLOW UP, AND DOES NOT KNOW IF SHE SAW A NEUROLOGIST WHILE SHE WAS IN THE HOSPITAL AT [facility]. SHE HAS NOT FOLLOWED UP WITH ANYONE SINCE EITHER OF THOSE ADMITS SHE HAS HAD COLON RESECTION, WITH COLOSTOMY AND PORTILLO'S, CHOLECYSTECTOMY, APPE NDECTOMY, HYST/BSO ADDITIONALLY, PT IS INSULIN DEPENDENT DIABETIC, HAS HAD CVA, CAD, COPD, HTN. SHE HAS NOT CHECKED HER BLOOD SUGAR TODAY OR ANY TIME RECENTLY. PCP: [facility], DR. DIXIE ZELAYA Allergies and Home Medications Allergies Coded Allergies: sulfamethoxazole (Verified Allergy, Intermediate, VOMITTING/MIGRAINE, 07/17/22) trimethoprim (Verified Allergy, Intermediate, VOMITTING/MIGRAINE, 07/17/22) diphenhydramine (Verified Allergy, Unknown, 07/17/22) pentazocine (Unverified Adverse Reaction, Mild, N/V, HEAD ACHE, 07/17/22) Patient Home Medication List Home Medication List Reviewed: Yes Acetaminophen (Tylenol Extra Strength) 500 Mg Tablet, 1,000 MG PO Q8H PRN for PAIN-MILD (1-4), (Reported) Entered as Reported by: MARGOTH LAUGHLIN on 06/10/22 1053 Albuterol Sulfate (Ventolin Hfa) 90 Mcg Hfa.aer.ad, 2 PUFF IH Q4H PRN for SHORTNESS OF BREATH, (Reported) Entered as Reported by: MAICOL GUTIERREZ on 10/04/20 1206 Budesonide/Formoterol Fumarate (Budesonide-Formoterol 160-4.5) 160 Mcg-4.5 Mcg/Actuation Hfa.aer.ad, 2 PUFF INH BID, (Reported) Entered as Reported by: MARGOTH LAUGHLIN on 06/10/22 1050 Ciprofloxacin HCl (Cipro) 500 Mg Tablet, 500 MG PO BID Prescribed by: FRANCISCO GUTIERREZ on 06/11/22 1143 Fenofibrate,Micronized (Fenofibrate) 134 Mg Capsule, 134 MG PO HS, (Reported) Entered as Reported by: MARGOTH LAUGHLIN on 06/10/22 1050 Gabapentin (Neurontin) 300 Mg Capsule, 300 MG PO HS, (Reported) Entered as Reported by: DIXIE ASH on 06/05/20 1627 Sacubitril/Valsartan (Entresto 24 mg-26 mg Tablet) 24 Mg-26 Mg Tablet, 1 EA PO HS, (Reported) Entered as Reported by: STEPHEN HORNE on 03/16/18 1243 Vancomycin HCl (Vancomycin HCl) 125 Mg Capsule, 125 MG PO Q6HR Prescribed by: FRANCISCO GUTIERREZ on 06/11/22 1143 Venlafaxine HCl (Venlafaxine HCl ER) 150 Mg Cap.er.24h, 150 MG PO HS, (Reported) Entered as Reported by: MARGOTH LAUGHLIN on 06/10/22 1050 Review of Systems Review of Systems Constitutional: no symptoms reported; No chills, No diaphoresis, No dizziness, No fever Respiratory: No Symptoms Reported Cardiovascular: No Symptoms Reported Gastrointestinal: See HPI, Abdominal Pain, Diarrhea; Denies Nausea, Denies Poor Appetite, Denies Poor Fluid Intake, Denies Rectal Bleeding, Denies Vomiting Genitourinary: No Symptoms Reported Musculoskeletal: no symptoms reported Skin: no symptoms reported Psychiatric/Neurological: No Symptoms Reported Endocrine: No Symptoms Reported Hematologic/Lymphatic: No Symptoms Reported Past Arzmpgp-Xxgyfl-Zapuvm Hx Patient Social History Tobacco Use?: Yes Tobacco type used: Cigarettes Smoking Status: Current Everyday Smoker Use of E-Cig and/or Vaping dev: No Substance use?: No Alcohol Use?: No Pt feels they are or have been: No Immunizations Up To Date Tetanus Booster (TDap): More than 5yrs PED Vaccines UTD: No Seasonal Allergies Seasonal Allergies: Yes Past Medical History Surgery/Hospitalization HX: PMH-STROKE, HTN, DEPRESSION, COPD, CAD, "LEAKY HEART VALVE" PSH-COMPLETE HYSTER, GB, APPY, LEFT LUMPECTOMY, COLOSTOMY, HEARTMANS PROCEDURE Surgeries: Yes Abdominal, Appendectomy, Gallbladder, Hysterectomy, Oophorectomy Respiratory: Yes Asthma, Pneumonia, Pulmonary Embolism, COPD Currently Using CPAP: No Currently Using BIPAP: No Cardiac: Yes Coronary Artery Disease, Hypertension Neurological: Yes Seizure Disorder, Stroke 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 Disorders: Yes (CERVICAL DYSPLASIA--S/P HYST/BSO) 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 Disorders: 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 Sexually Transmitted Disease: No HIV/AIDS: No Genitourinary: Yes Kidney Infection, Kidney Stones, Renal Failure Gastrointestinal: Yes Gastroesophageal Reflux, Diverticulosis, C-Diff, Gall Bladder Disease Musculoskeletal: Yes Degenerate Disk Disease, Chronic Back Pain Endocrine: Yes Diabetes, Insulin dep HEENT: Yes Glaucoma Loss of Vision: Denies Hearing Impairment: Denies Cancer: Yes Cervical Did You Recieve Any Treatments: Yes What Type of Treatment Did You: Surgical Intervention Psychosocial: Yes Anxiety, Depression Integumentary: No Blood Disorders: Yes (hx of anemia) Adverse Reaction/Blood Tranf: No Family Medical History CANCER 19 MOTHER (PATIENT DOES NOT KNOW LOCATION) Heart Disease, Cancer SOCIAL HISTORY: -SMOKES 1 PPD -DENIES ETOH USE -DENIES DRUG USE PAST SURGICAL HISTORY: -BREAST BIOPSY -APPENDECTOMY -CHOLECYSTECTOMY -HYSTERECTOMY / BILATERAL SALPINGO-OOPHORECTOMY -CARDIAC CATHS --ND WITH ANGIOPLASTY AND STENTS X 2 TO LEFT CIRCUMFLEX AND ANGIOPLASTY TO LAD 10/2014 -COLON RESECTION WITH COLOSTOMY FOR PERFORATED DIVERTICULUM 05/2014, AND LATER REVERSAL 07/2014 -EGD'S AND COLONOSCOPIES -CARDIAC CATH 10/04/[address] WILSON: CONCLUSION: 1. Patent stent in the left main extending to the circumflex artery that is a dominant artery with excellent flow distally 2. Mild to moderate disease in the LAD nonobstructive disease, ostial LAD has about 40 to 50% stenosis nonobstructive disease 3. Mildly elevated left ventricular end-diastolic pressure DISCUSSION AND RECOMMENDATION: Continue to maximize medical therapy Physical Exam Vital Signs Vital Signs - First Documented 07/17/22 18:00 Temp 36.7 Pulse 110 Resp 18 B/P (MAP) 100/70 (80) Pulse Ox 93 O2 Delivery Room Air Capillary Refill : Height/Weight/BMI Height: 5'2.00" Weight: 164lbs. 0.0oz. 74.225532gl; 27.25 BMI Method:Stated General Appearance: WD/WN, no apparent distress, other (VERY TALKATIVE, DOES NOT APPEAR ILL OR TO BE IN ANY DISCOMFORT OR DISTRESS. SHE WALKS WITHOUT DIFFICULTY, SHE REEKS OF CIGARETTES, AND IS COVERED IN ANIMAL HAIR. ) HEENT: PERRL/EOMI, other (EDENTULOUS, ORAL MUCOSA MOIST. 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 tested, no motor/sensory deficits, alert, normal mood/affect, oriented x 3 Skin: normal color, warm/dry Focused Exam Sepsis Stage: Sepsis Possible Source: Other (GI VS URINARY TRACT) Lactate Level 07/17/22 20:06: Lactic Acid Level 1.05 Time of Focused Exam: 20:15 Respiratory: Normal Breath Sounds, No Accessory Muscle Use, No Respiratory Distress Cardiovascular: Regular Rate, Rhythm, No Murmur Capillary Refill: Less Than 3 Seconds Skin: normal color, warm/dry Lactic Acid Level Laboratory Tests Test 07/17/22 20:06 Lactic Acid Level 1.05 MMOL/L (0.50-2.00) Within 3hrs of presentation: Admin fluids, Admin ABX, Blood cultures prior to ABX's, Focus exam, Lactate level Procedures/Interventions Date of ETT Placement: Feb 11, 2016 Time of ETT Placement: 1341 Progress/Results/Core Measures Results/Orders Lab Results Laboratory Tests Test 07/17/22 18:24 07/17/22 18:35 07/17/22 18:41 07/17/22 20:06 Range/Units Urine Color ORANGE Urine Clarity CLOUDY Urine pH 6.0 5-9 Urine Specific [place] >=1.030 1.016-1.022 Urine Protein 2+ H NEGATIVE Urine Glucose (UA) NEGATIVE NEGATIVE Urine Ketones NEGATIVE NEGATIVE Urine Nitrite NEGATIVE NEGATIVE Urine Bilirubin NEGATIVE NEGATIVE Urine Urobilinogen 0.2 < = 1.0 MG/DL Urine Leukocyte Esterase TRACE H NEGATIVE Urine RBC (Auto) TRACE-I H NEGATIVE Urine RBC NONE /HPF Urine WBC 5-10 H /HPF Urine Squamous Epithelial Cells 2-5 /HPF Urine Crystals NONE /LPF Urine Bacteria FEW H /HPF Urine Casts PRESENT /LPF Urine Hyaline Casts 5-10 H /LPF Urine Mucus NEGATIVE /LPF Urine Culture Indicated YES Prothrombin Time 14.3 12.2-14.7 SEC INR Comment 1.1 0.8-1.4 Activated Partial Thromboplast Time 35 24-35 SEC White Blood Count 20.4 H 4.3-11.0 10^3/uL Red Blood Count 4.41 3.80-5.11 10^6/uL Hemoglobin 14.1 11.5-16.0 g/dL Hematocrit 41 35-52 % Mean Corpuscular Volume 92 80-99 fL Mean Corpuscular Hemoglobin 32 25-34 pg Mean Corpuscular Hemoglobin Concent 35 32-36 g/dL Red Cell Distribution Width 13.1 10.0-14.5 % Platelet Count 648 H 130-400 10^3/uL Mean Platelet Volume 9.2 9.0-12.2 fL Immature Granulocyte % (Auto) 0 % Neutrophils (%) (Auto) 75 42-75 % Lymphocytes (%) (Auto) 17 12-44 % Monocytes (%) (Auto) 7 0-12 % Eosinophils (%) (Auto) 1 0-10 % Basophils (%) (Auto) 1 0-10 % Neutrophils # (Auto) 15.2 H 1.8-7.8 10^3/uL Lymphocytes # (Auto) 3.5 1.0-4.0 10^3/uL Monocytes # (Auto) 1.3 H 0.0-1.0 10^3/uL Eosinophils # (Auto) 0.2 0.0-0.3 10^3/uL Basophils # (Auto) 0.1 0.0-0.1 10^3/uL Immature Granulocyte # (Auto) 0.1 0.0-0.1 10^3/uL Neutrophils % (Manual) 76 % Lymphocytes % (Manual) 19 % Monocytes % (Manual) 5 % Blood Morphology Comment NORMAL Sodium Level 138 135-145 MMOL/L Potassium Level 3.6 3.6-5.0 MMOL/L Chloride Level 108 H 98-107 MMOL/L Carbon Dioxide Level 14 L 21-32 MMOL/L Anion Gap 16 H 5-14 MMOL/L Blood Urea Nitrogen 12 7-18 MG/DL Creatinine 1.15 0.60-1.30 MG/DL Estimat Glomerular Filtration Rate 54 BUN/Creatinine Ratio 10 Glucose Level 114 H 70-105 MG/DL Calcium Level 9.8 8.5-10.1 MG/DL Corrected Calcium 9.9 8.5-10.1 MG/DL Magnesium Level 1.7 1.6-2.4 MG/DL Total Bilirubin 0.5 0.1-1.0 MG/DL Aspartate Amino Transf (AST/SGOT) 27 5-34 U/L Alanine Aminotransferase (ALT/SGPT) 38 0-55 U/L Alkaline Phosphatase 123 40-136 U/L Total Protein 7.7 6.4-8.2 GM/DL Albumin 3.9 3.2-4.5 GM/DL Amylase Level 56 25-125 U/L Lipase 32 8-78 U/L Lactic Acid Level 1.05 0.50-2.00 MMOL/L Test 07/17/22 20:54 Range/Units Blood Gas Puncture Site RRAD Blood Gas Patient Temperature 36.7 Arterial Blood pH 7.37 7.37-7.43 Arterial Blood Partial Pressure CO2 32 L 35-45 MMHG Arterial Blood Partial Pressure O2 86 79-93 MMHG Arterial Blood HCO3 18 L 23-27 MMOL/L Arterial Blood Total CO2 18.7 L 21.0-31.0 MMOL/L Arterial Blood Oxygen Saturation 97 94-100 % Arterial Blood Base Excess -6.7 L -2.5-2.5 MMOL/L Teto Test YES-POS Blood Gas Ventilator Setting NO Blood Gas Inspired Oxygen 21% My Orders Orders - CAMILLE GARDUNO DO Ed Iv/Invasive Line Start (07/17/22 18:21) Monitor-Rhythm Ecg Trace Only (07/17/22 18:21) Amylase (07/17/22 18:21) Cbc With Automated Diff (07/17/22 18:21) Comprehensive Metabolic Panel (07/17/22 18:21) Lipase (07/17/22 18:21) Magnesium (07/17/22 18:21) Ua Culture If Indicated (07/17/22 18:21) Stool Culture (07/17/22 18:21) Fecal Wbc (07/17/22 18:21) Ed Iv/Invasive Line Start (07/17/22 18:21) Lactated Ringers (Lr 1000 Ml Iv Solution (07/17/22 18:30) C Difficile Ag + Toxin A/B. (07/17/22 18:21) Isolation Central Supply Req (07/17/22 18:21) Manual Differential (07/17/22 18:41) Urine Culture (07/17/22 18:24) Blood Culture (07/17/22 19:00) Protime With Inr (07/17/22 19:00) Partial Thromboplastin Time (07/17/22 19:00) Ed Iv/Invasive Line Start (07/17/22 19:00) Vital Signs Adult Sepsis Patie Q15M (07/17/22 19:00) O2 (07/17/22 19:00) Remove Rings In Anticipation O (07/17/22 19:00) Lactic Acid Analyzer (07/17/22 19:00) Ct Abdomen/Pelvis W (07/17/22 19:11) Iohexol Injection (Omnipaque 350 Mg/Ml 1 (07/17/22 19:15) Ns (Ivpb) (Sodium Chloride 0.9% Ivpb Bag (07/17/22 19:15) Ed Iv/Invasive Line Start (07/17/22 19:25) Lactated Ringers (Lr 1000 Ml Iv Solution (07/17/22 19:30) Arterial Blood Gas (07/17/22 20:20) Ed Admission (Communication) (07/17/22 20:22) Vancomycin Oral Capsule (Vancomycin Oral (07/17/22 20:30) Arterial Blood Gas (07/17/22 20:46) Arterial Blood Draw - Obtain (07/17/22 20:54) Medications Given in ED Current Medications Medications Dose Ordered Sig/Jamie Route Start Time Stop Time Status Last Admin Dose Admin Iohexol 100 ml ONCE ONCE IV 07/17/22 19:15 07/17/22 19:16 DC 07/17/22 19:57 70 ML Lactated Ringer's 1,000 ml @ 0 mls/hr Q0M ONCE IV 07/17/22 18:30 07/17/22 18:31 DC 07/17/22 18:54 1,000 MLS/HR Lactated Ringer's 1,000 ml @ 0 mls/hr Q0M ONCE IV 07/17/22 19:30 07/17/22 19:31 DC 07/17/22 19:50 999 MLS/HR Sodium Chloride 100 ml ONCE ONCE IV 07/17/22 19:15 07/17/22 19:16 DC 07/17/22 19:57 80 ML Vital Signs/I&O 07/17/22 07/17/22 18:00 21:38 Temp 36.7 36.7 Pulse 110 90 Resp 18 16 B/P (MAP) 100/70 (80) 122/69 Pulse Ox 93 95 O2 Delivery Room Air Room Air 07/17/22 23:59 Intake Total 2000 ml Balance 2000 ml Progress Progress Note : Progress Note PPE WORN PT WAS ABLE TO VOID SOON SHE ARRIVED IN ER. GIVEN: -IV FLUIDS -PO VANCOMYCIN SEPSIS LAB/ PROTOCOL INITIATED AFTER RECEIVING CBC RESULTS SHOWING ELEVATED WBC OF 20. 4 SHE WAS MILDLY TACHYCARDIC ON ARRIVAL, WITH HR OF 110, BP 100/70 ON MY EXAM, SHE WAS NOT TACHYCARDIC, AFTER SHE HAD BEEN RESTING FOR SEVERAL MINUTES. 2014--HR 92, BP 101/55, O2 SAT 96% ON ROOM AIR. PT HAS NO COMPLAINTS AT THIS TIME. SHE HAS NOT HAD ANY STOOLS DURING ER STAY, SHE HAS NOT HAD ANY COMPLAINTS OF ANY KIND DURING ER STAY. NO DETERIORATION IN PT'S CONDITION DURING ER STAY DUE TO HISTORY OF RECENT C.DIFFICILE, WITH PERSISTENT DIARRHEA, WITH ONLY A VERY MILD UTI NOTED ON UA, HAVE DISCUSSED WITH DR. VOSS, AND WILL TREAT FOR C. DIFFICILE WITH ORAL VANCOMYCIN AT THIS TIME, AND NO AGGRESSIVE IV ANTIBIOTICS AT THIS TIME, AND WILL WAIT FOR URINE CULTURE RESULTS FOR ANY ADDITIONAL ANTIBIOTICS. SUSPECT PT'S LEUKOCYTOSIS/SEPSIS IS DUE TO PERSISTENT C.DIFFICLE INFECTION COMPLEX MANAGEMENT DUE TO MULTIPLE CO-MORBIDITIES. Diagnostic Imaging Comments CT ABDOMEN/PELVIS--PER RADIOLOGIST REPORT AT 2009 FINDINGS: Lung bases are clear. Liver appears normal. The gallbladder is surgically absent. Pancreas appears normal. Spleen is not enlarged. Adrenals are normal. Kidneys appear normal. There is some retained fluid in the small bowel but it does not appear to be obstructive. Colon is unremarkable. There is no evidence of appendicitis. Uterus is surgically absent. There is no intraperitoneal free air or free fluid. IMPRESSION: There are postsurgical changes in the abdomen. No acute abnormality is seen. Reviewed: Reviewed by Me Departure Communication (Admissions) 2017--SPOKE WITH DR. VOSS, HOSPITALIST FOR [facility], ACCEPTS PT FOR ADMIT. SHE WILL DO ADMIT ORDERS. WILL TREAT WITH ORAL VANCOMYCIN FOR SUSPECTED PERSISTENT C.DIFFICILE INFECTION. SHE ADVISES ABG'S DUE TO LOW CO2 LEVEL ON CHEMISTRY PANEL. Impression Primary Impression: Sepsis Additional Impressions: Diarrhea RECENT C. DIFFICILE COLITIS UTI (urinary tract infection) IDDM (insulin dependent diabetes mellitus) Dehydration CAD (coronary artery disease) COPD (chronic obstructive pulmonary disease) Disposition: ADMITTED INPATIENT Condition: Stable Admissions Decision to Admit Reason: Admit from ER (General) Decision to Admit/Date: Jul 17, 2022 Time/Decision to Admit Time: 20:20 Departure-Patient Inst. Referrals: DIXIE ZELAYA MD (PCP/Family) Primary Care Physician CAMILLE GARDUNO DO Jul 17, 2022 18:35
[2022-07-17 18:44] LABS: BASOPHILS # (AUTO) 0.1 10^3/uL (0.0-0.1); BASOPHILS % (AUTO) 1 % (0-10); EOSINOPHILS # (AUTO) 0.2 10^3/uL (0.0-0.3); EOSINOPHILS % (AUTO) 1 % (0-10); HEMATOCRIT 41 % (35-52); HEMOGLOBIN 14.1 g/dL (11.5-16.0); LYMPHOCYTES # (AUTO) 3.5 10^3/uL (1.0-4.0); LYMPHOCYTES % (AUTO) 17 % (12-44); MEAN CORPUSCULAR HEMOGLOBIN 32 pg (25-34); MEAN CORPUSCULAR HGB CONC 35 g/dL (32-36); MEAN CORPUSCULAR VOLUME 92 fL (80-99); MEAN PLATELET VOLUME 9.2 fL (9.0-12.2); MONOCYTES # (AUTO) 1.3 10^3/uL (0.0-1.0); MONOCYTES % (AUTO) 7 % (0-12); NEUTROPHILS # (AUTO) 15.2 10^3/uL (1.8-7.8); NEUTROPHILS % (AUTO) 75 % (42-75); PLATELET COUNT 648 10^3/uL (130-400); WHITE BLOOD COUNT 20.4 10^3/uL (4.3-11.0)
[2022-07-17 18:56] LABS: BACTERIA,URINE FEW /HPF
[2022-07-17 19:03] LABS: ALBUMIN 3.9 GM/DL (3.2-4.5); BILIRUBIN,TOTAL 0.5 MG/DL (0.1-1.0); CALCIUM 9.8 MG/DL (8.5-10.1); CREATININE SERUM 1.15 MG/DL (0.60-1.30); MAGNESIUM 1.7 MG/DL (1.6-2.4); POTASSIUM 3.6 MMOL/L (3.6-5.0); TOTAL PROTEIN 7.7 GM/DL (6.4-8.2)
[2022-07-17 19:12] LABS: INR 1.1 (0.8-1.4); PROTHROMBIN TIME PATIENT 14.3 SEC (12.2-14.7)
[2022-07-17 19:14] LABS: LYMPHOCYTES % (MANUAL) 19 %; MONOCYTES % (MANUAL) 5 %; NEUTROPHILS % (MANUAL) 76 %; RBC MORPH NORMAL
[2022-07-17] MEDS ORDERED: IOHEXOL 350 MG/ML 100 ML (OMNIPAQUE 350) VIAL IV ONE (19:15)
[2022-07-17] MEDS ORDERED: NS 100 ML (IVPB) BAG IV ONE (19:15)
--- NOTE | 2022-07-17 20:01 | Diagnostic Imaging Report ---
PROCEDURE: CT abdomen and pelvis with contrast. TECHNIQUE: Multiple contiguous axial images were obtained through the abdomen and pelvis after administration of intravenous contrast. Auto Exposure Controls were utilized during the CT exam to meet ALARA standards for radiation dose reduction. All CT scans use one or more of the following dose optimizing techniques: automated exposure control, MA and/or KvP adjustment based on patient size and exam type or iterative reconstruction. INDICATION: Abdominal pain and diarrhea. FINDINGS: Lung bases are clear. Liver appears normal. The gallbladder is surgically absent. Pancreas appears normal. Spleen is not enlarged. Adrenals are normal. Kidneys appear normal. There is some retained fluid in the small bowel but it does not appear to be obstructive. Colon is unremarkable. There is no evidence of appendicitis. Uterus is surgically absent. There is no intraperitoneal free air or free fluid. IMPRESSION: There are postsurgical changes in the abdomen. No acute abnormality is seen. Dictated by: Dictated on workstation # [id number]
[2022-07-17] MEDS ORDERED: VANCOMYCIN 125 MG CAPSULE PO SCH ×2 (20:30→22:08)
[2022-07-17 21:03] LABS: ABG BASE EXCESS -6.7 MMOL/L (-2.5-2.5); ABG OXYGEN SATURATION 97 % (94-100); ABG PCO2 32 MMHG (35-45); ABG PH 7.37 (7.37-7.43); ABG PO2 86 MMHG (79-93); ABG TCO2 18.7 MMOL/L (21.0-31.0)
[2022-07-17 21:04] LABS: ALLENS TEST YES-POS; INSPIRED O2 21%; PATIENT TEMP 36.7; VENTILATOR NO
[2022-07-17] MEDS ORDERED: HYDROmorphone 2 MG/ML VIAL (DILAUDID) IV PRN (21:45)
[2022-07-17] MEDS ORDERED: MILK OF MAGNESIA 400 MG/5 ML 30 ML UDC PO PRN (21:45)
[2022-07-17] MEDS ORDERED: ALPRAZolam 1 MG (XANAX) TAB PO PRN (21:45)
[2022-07-17] MEDS ORDERED: ACETAMINOPHEN 325 MG TABLET PO PRN (21:45)
[2022-07-17] MEDS ORDERED: ANTACID SUSP 30 ML UDC (MYLANTA) PO PRN (21:45)
[2022-07-17] MEDS ORDERED: ONDANSETRON 4 MG (ZOFRAN) ORAL DISSOLVE TAB PO PRN (21:45)
[2022-07-17] MEDS ORDERED: polyethylene glycoL POWDER 17 GM (MIRALAX) PACK PO PRN (21:45)
[2022-07-17] MEDS ORDERED: MELATONIN 3 MG TABLET PO PRN (21:45)
[2022-07-17] MEDS ORDERED: NS (IVPB) 250 ML IV PRN (21:45)
[2022-07-17] MEDS ORDERED: LACTULOSE SYRUP 10GM/15ML (ENULOSE) 30ML UDC PO PRN (21:45)
[2022-07-17] MEDS ORDERED: ONDANSETRON 4 MG/2 ML (SDV) Z0FRAN IV PRN (21:45)
[2022-07-17] MEDS ORDERED: BISACODYL 10 MG SUPP (DULCOLAX) PR PRN (21:45)
[2022-07-17] MEDS ORDERED: CALCIUM CARBONATE 500 MG (TUMS) TAB.CHEW PO PRN (21:45)
--- NOTE | 2022-07-17 22:28 | Tele-ICU Consult ---
History of Present Illness History of Present Illness Date Seen by Provider: Jul 17, 2022 Time Seen by Provider: 22:27 Date of Admission 07/17/22 History of Present Illness (Tele-ICU Physician , Progress Note ) Service provided via interactive audio and video telecommunications [facility] stem to a patient admitted to ICU bed in [facility]. Patient is seen today due to persistent need of ICU care Available chart/ vitals / labs / Images reviewed Video assessment done using teleICU camera, rest of exam as per RN She is a 61-year-old female with past medical history of hypertension, diabetes mellitus, colorectal polyps status post colon resection for for depression due to diverticulitis with colostomy and status post reversal of the colostomy, coronary artery disease status post stent placement presented to the emergency room with a complaint that she has been having diarrhea and nausea abdominal cramping for about 3 days. She denies any fever present. She did admit last month with similar complaint and she is found to have a C. difficile colitis and urinary tract infection which were treated. Now she is found to be tachycardic and dehydrated. Urine analysis suggestive of urinary tract infection. It is not clear whether she had a persistent or recurrence of C. difficile colitis. She is admitted for further evaluation and management to the intensive care unit. I have interviewed the patient via video visit. Not in any acute distress. Impression 1. Recurrent diarrhea most likely due to recurrence of C. difficile colitis 2. Dehydration due to diarrhea 3. Possible urinary tract infection. 4. History of diabetes and hypertension 5. Rule out sepsis. Recommendations 1. Continue hydration with normal saline 2. Agree with IV antibiotics 3. DVT prophylaxis and ulcer prophylaxis 4. Monitor electrolytes, BUN/creatinine. 5. Further course of treatment depends upon her hospital course. Coordination of care with primary care physician and bedside consultants. I am remotely monitoring this patient from Tele icu station in [place]. I am unable to do the bedside exam, and history/physical and pertinent information is taken from other notes in the computer and bedside staff. Certain portions of this document may have been dictated utilizing voice recognition technology such as [employer] [employer]. Inherent to this technology, typographical and grammatical errors may exist. As much as I am diligent to identify and correct to these mistakes, some errors may remain in the document. Critical care time devoted to this patient today is approximately is--30 minutes Allergies and Home Medications Allergies Coded Allergies: sulfamethoxazole (Verified Allergy, Intermediate, VOMITTING/MIGRAINE, 07/17/22) trimethoprim (Verified Allergy, Intermediate, VOMITTING/MIGRAINE, 07/17/22) diphenhydramine (Verified Allergy, Unknown, 07/17/22) pentazocine (Unverified Adverse Reaction, Mild, N/V, HEAD ACHE, 07/17/22) Home Medications Acetaminophen 500 Mg Tablet, 1,000 MG PO Q8H PRN for PAIN-MILD (1-4), (Reported) Albuterol Sulfate 90 Mcg Hfa.aer.ad, 2 PUFF IH Q4H PRN for SHORTNESS OF BREATH, (Reported) Budesonide/Formoterol Fumarate 160 Mcg-4.5 Mcg/Actuation Hfa.aer.ad, 2 PUFF INH BID, (Reported) Ciprofloxacin HCl 500 Mg Tablet, 500 MG PO BID Prescribed by: FRANCISCO GUTIERREZ on 06/11/22 1143 Fenofibrate,Micronized 134 Mg Capsule, 134 MG PO HS, (Reported) Gabapentin 300 Mg Capsule, 300 MG PO HS, (Reported) Sacubitril/Valsartan 24 Mg-26 Mg Tablet, 1 EA PO HS, (Reported) Vancomycin HCl 125 Mg Capsule, 125 MG PO Q6HR Prescribed by: FRANCISCO GUTIERREZ on 06/11/22 1143 Venlafaxine HCl 150 Mg Cap.er.24h, 150 MG PO HS, (Reported) Past Medical/Social/Family Hx Patient Social History Tobacco Use?: Yes Tobacco type used: Cigarettes Smoking Status: Current Everyday Smoker Use of E-Cig and/or Vaping dev: No Substance use?: No Alcohol Use?: No Pt stated abuse/neglect: No Immunizations Up To Date Influenza Vaccine Up-to-Date: No; Not Current Tetanus Booster (TDap): Unknown Hepatitis A: No Hepatitis B: No TB Skin Test: Negative Date of Pneumonia Vaccine: May 01, 2015 Current Status status: No status: No Advance Directives: No Communicates: Verbally Primary Language: Turkish Preferred Spoken Language: Turkish Sensory deficits: Vision impairment Implanted or Applied Medical D: None, Stents Family Medical History Family Hx: SOCIAL HISTORY: -SMOKES 1 PPD -DENIES ETOH USE -DENIES DRUG USE PAST SURGICAL HISTORY: -BREAST BIOPSY -APPENDECTOMY -CHOLECYSTECTOMY -HYSTERECTOMY / BILATERAL SALPINGO-OOPHORECTOMY -CARDIAC CATHS --SD WITH ANGIOPLASTY AND STENTS X 2 TO LEFT CIRCUMFLEX AND ANGIOPLASTY TO LAD 10/2014 -COLON RESECTION WITH COLOSTOMY FOR PERFORATED DIVERTICULUM 05/2014, AND LATER REVERSAL 07/2014 -EGD'S AND COLONOSCOPIES -CARDIAC CATH 10/04/[address] WILSON: CONCLUSION: 1. Patent stent in the left main extending to the circumflex artery that is a dominant artery with excellent flow distally 2. Mild to moderate disease in the LAD nonobstructive disease, ostial LAD has about 40 to 50% stenosis nonobstructive disease 3. Mildly elevated left ventricular end-diastolic pressure DISCUSSION AND RECOMMENDATION: Continue to maximize medical therapy Review of Systems Constitutional: see HPI, weakness Focused Exam Lactate Level 07/17/22 20:06: Lactic Acid Level 1.05 Height, Weight, BMI Height: 5'2.00" Weight: 164lbs. 0.0oz. 74.000257hf; 26.52 BMI Method:Stated Time of Focused Exam: 20:15 Lactic Acid Level Laboratory Tests Test 07/17/22 20:06 Lactic Acid Level 1.05 MMOL/L (0.50-2.00) Exam Exam Patient acknowledged, consented, and participated in this virtual visit which was conducted using real time audio/video Vital Signs Date Time Temp Pulse Resp B/P (MAP) Pulse Ox O2 Delivery O2 Flow Rate FiO2 07/17/22 22:12 36.7 110 93 21 07/17/22 21:38 36.7 90 16 122/69 95 Room Air 07/17/22 18:00 36.7 110 18 100/70 (80) 93 Room Air Height & Weight Height: 5'2.00" Weight: 164lbs. 0.0oz. 74.589865ur; 26.52 BMI Method:Stated General Appearance: Mild Distress Respiratory: Normal Breath Sounds, No Accessory Muscle Use, No Respiratory Distress Cardiovascular: Regular Rate, Rhythm, No Murmur Capillary Refill: Less Than 3 Seconds Gastrointestinal: normal bowel sounds, non tender, soft, no organomegaly Other comments PE PER RN Results Lab Laboratory Tests 07/17/22 18:41 Assessment/Plan Assessment/Plan as above Critical Care: Critically Ill Patient Time spent with patient (mins): 30 KATHY DELAROSA MD Jul 17, 2022 22:28
[2022-07-17] MEDS ORDERED: RT-ALBUTEROL/IPRATROPIUM 3 ML (DUONEB) VIAL INH PRN (22:30)
[2022-07-17] MEDS: ENOXAPARIN 40 MG/0.4 ML (LOVENOX) SYR SC SCH (22:45)
[2022-07-17] MEDS: NS IV 1000 ML 1,000 ML IV SCH (22:45)
[2022-07-18 02:00] VITALS: BP 122/65
[2022-07-18 04:00] VITALS: BP 114/65
[2022-07-18 05:02] LABS: BASOPHILS # (AUTO) 0.1 10^3/uL (0.0-0.1); BASOPHILS % (AUTO) 1 % (0-10); EOSINOPHILS # (AUTO) 0.2 10^3/uL (0.0-0.3); EOSINOPHILS % (AUTO) 1 % (0-10); HEMATOCRIT 35 % (35-52); HEMOGLOBIN 12.1 g/dL (11.5-16.0); LYMPHOCYTES # (AUTO) 3.7 10^3/uL (1.0-4.0); LYMPHOCYTES % (AUTO) 24 % (12-44); MEAN CORPUSCULAR HEMOGLOBIN 32 pg (25-34); MEAN CORPUSCULAR HGB CONC 35 g/dL (32-36); MEAN CORPUSCULAR VOLUME 91 fL (80-99); MEAN PLATELET VOLUME 9.6 fL (9.0-12.2); MONOCYTES # (AUTO) 1.2 10^3/uL (0.0-1.0); MONOCYTES % (AUTO) 8 % (0-12); NEUTROPHILS % (AUTO) 66 % (42-75); PLATELET COUNT 532 10^3/uL (130-400); WHITE BLOOD COUNT 15.2 10^3/uL (4.3-11.0)
[2022-07-18 05:06] LABS: ALBUMIN 3.2 GM/DL (3.2-4.5)
[2022-07-18 05:07] LABS: CALCIUM 8.8 MG/DL (8.5-10.1)
[2022-07-18 05:08] LABS: TOTAL PROTEIN 6.1 GM/DL (6.4-8.2)
[2022-07-18 05:10] LABS: BILIRUBIN,TOTAL 0.4 MG/DL (0.1-1.0)
[2022-07-18 05:12] LABS: CREATININE SERUM 0.76 MG/DL (0.60-1.30)
[2022-07-18] MEDS: NS IV 1000 ML 1,000 ML IV SCH ×3 (05:54→20:27)
[2022-07-18] MEDS: VANCOMYCIN 125 MG CAPSULE PO SCH ×4 (06:10→23:17)
[2022-07-18 08:00] VITALS: BP 133/68
[2022-07-18] MEDS: SENNOSIDES 8.6 MG (SENOKOT) TAB PO SCH ×2 (09:08→20:26)
[2022-07-18] MEDS: DOCUSATE SODIUM 100 MG (COLACE) CAP PO SCH ×2 (09:08→20:26)
[2022-07-18] MEDS ORDERED: MAGNESIUM 1 GM/100 ML IVPB 100 ML IV ONE (10:00)
[2022-07-18] MEDS: POTASSIUM CL 10MEQ/50ML IVPB 50 ML IV SCH ×4 (10:18→16:37)
[2022-07-18] MEDS: cefTRIAXone IV/IM 1,000 MG in NS (IVPB) 50 ML IV SCH (10:18)
--- NOTE | 2022-07-18 11:35 | Physical Therapy Evaluation ---
PT Evaluation-General Medical Diagnosis Admission Date Jul 17, 2022 at 21:47 Medical Diagnosis: sepsis Onset Date: Jul 17, 2022 Therapy Diagnosis Therapy Diagnosis: debility/weakness Height/Weight Height (Feet): 5 Height (Inches): 2.00 Weight (Pounds): 164 Weight (Ounces): 0.0 Precautions Precautions/Isolations: Contact Isolation Referral Physician: Anderson Reason for Referral: Evaluation/Treatment Medical History Pertinent Medical History: Alcoholism, Arthritis, CAD, COPD, HTN, [place], Rheumatoid Arthritis, Smoking Current History ER secondary to diarrhea Reviewed History: Yes Social History Home: Apartment Entry Into Home: Level Entry Prior Prior Level of Function SCALE: Activities may be completed with or without assistive devices. 0-Mkxdcwxcoq-auyczlo completes the activity by him/herself with no assistance from a helper. 5-Set-up or Clean-up Assistance-helper sets up or cleans up; patient completes activity. [place] assists only prior to or following the activity. 4-Supervision or Touching Assistance-helper provides verbal cues and/or touching/steadying and/or contact guard assistance as patient completes activity. Assistance may be provided throughout the activity or intermittently. 3-Partial/Moderate Assistance-helper does LESS THAN HALF the effort. [place] lifts, holds or supports trunk or limbs, but provides less than half the effort. 2-Substantial/Maximal Assistance-helper does MORE THAN HALF the effort. [place] lifts or holds trunk or limbs and provides more than half the effort. 5-Hgbtlugik-zbamvs does ALL the effort. Patient does none of the effort to complete the activity. Or, the assistance of 2 or more helpers is required for the patient to complete the activity. If activity was not attempted, code reason: 7-Patient Refused. 9-Not Applicable-not attempted and the patient did not perform the activity before the current illness, exacerbation or injury. 10-Not Attempted due to Environmental Limitations-(lack of equipment, weather restraints, etc.). 88-Not Attempted due to Medical Conditions or Safety Concerns. Bed Mobility: 6 Transfers (B,C,W/C): 6 Gait: 6 Indoor Mobility (Ambulation): Independent Prior Devices Use: Walker (PRN) PT Evaluation-Current Subjective Patient agrees to PT. Objective Patient Orientation: Person, Time, Situation Attachments: IV ROM/Strength ROM Lower Extremities bilateral LE WFL Strength Lower Extremities 4/5 grossly bilateral LE all planes Integumentary/Posture Bowel Incontinence: No Bladder Incontinence: No Posture WFL Neuromuscular (Tone, Coordination, Reflexes) grossly intact Sensory Vision: Wears Glasses Hearing: Functional Transfers Lying to Sitting/Side of Bed(Q: 6 Sit to Stand (QC): 5 Chair/Qtp-kt-Aabaj Xfer(QC): 5 Toilet Transfer (QC): 5 Gait Mode of Locomotion: Walk Anticipated Mode of Locomotion: Walk Walk 10 feet (QC): 5 Walk 50 ft with 2 Turns(QC): 5 Walk 150 ft (QC): 5 Distance: 450' Gait Assistive Device: FWW Comments/Gait Description safe and functional with no deviation Balance Sitting Static: Normal Sitting Dynamic: Normal Standing Static: Normal Standing Dynamic: Normal Assessment/Needs Patient will be seen short term by skilled PT to address functional strength and mobility to improve LOF to safely return to home at maximum LOF. Rehab Potential: Fair PT Meter/Relay Craftsman Goals Meter/Relay Craftsman Goals PT Meter/Relay Craftsman Goals Time Frame: Jul 27, 2022 Roll Left & Right (QC): 6 Sit to Lying (QC): 6 Lying-Sitting on Side/Bed(QC): 6 Sit to Stand (QC): 6 Chair/Unt-ly-Wdrnb Xfer(QC): 6 Toilet Transfer (QC): 6 Walk 10 feet (QC): 6 Walk 50ft with 2 Turns (QC): 6 Walk 150 ft (QC): 6 PT Plan Treatment/Plan Treatment Plan: Continue Plan of Care Treatment Plan: Education, Functional Activity Frida, Functional Strength, Gait, Safety, Therapeutic Exercise, Transfers Treatment Duration: Jul 27, 2022 Frequency: 6 times per week Estimated Hrs Per Day: .25 hour per day Patient and/or Family Agrees t: Yes Time Time In: 1045 Time Out: 1055 DATE: Jul 18, 2022 Total Billed Treatment Time: 10 Total Billed Treatment 1 visit EVModC 10 min SCOTT NUR PT Jul 18, 2022 11:35
--- NOTE | 2022-07-18 11:47 | Occupational Therapy Eval ---
OT Evaluation-General/PLF Medical Diagnosis Admission Date Jul 17, 2022 at 21:47 Medical Diagnosis: sepsis Onset Date: Jul 17, 2022 Therapy Diagnosis Therapy Diagnosis: WEAKNESS Height/Weight Height (Feet): 5 Height (Inches): 2.00 Weight (Pounds): 164 Weight (Ounces): 0.0 Precautions Precautions/Isolations: Contact Isolation Weight Bear Status Weight Bearing Restriction: Full Weight Bearing Referral Physician: Anderson Referral Reason: Evaluation/Treatment Medical History Pertinent Medical History: Alcoholism, Arthritis, CAD, COPD, HTN, [place], Rheumatoid Arthritis, Smoking Social History Home: Apartment Entry Into Home: Level Entry ADL-Prior Level of Function SCALE: Activities may be completed with or without assistive devices. 0-Sfatkorxcn-vratjme completes the activity by him/herself with no assistance from a helper. 5-Set-up or Clean-up Assistance-helper sets up or cleans up; patient completes activity. [place] assists only prior to or following the activity. 4-Supervision or Touching Assistance-helper provides verbal cues and/or touching/steadying and/or contact guard assistance as patient completes activity. Assistance may be provided throughout the activity or intermittently. 3-Partial/Moderate Assistance-helper does LESS THAN HALF the effort. [place] lifts, holds or supports trunk or limbs, but provides less than half the effort. 2-Substantial/Maximal Assistance-helper does MORE THAN HALF the effort. [place] lifts or holds trunk or limbs and provides more than half the effort. 4-Xtycrthzp-tbaewz does ALL the effort. Patient does none of the effort to complete the activity. Or, the assistance of 2 or more helpers is required for the patient to complete the activity. If activity was not attempted, code reason: 7-Patient Refused. 9-Not Applicable-not attempted and the patient did not perform the activity before the current illness, exacerbation or injury. 10-Not Attempted due to Environmental Limitations-(lack of equipment, weather restraints, etc.). 88-Not Attempted due to Medical Conditions or Safety Concerns. Self Care: Independent Functional Cognition: Independent OT Current Status Subjective AGREEABLE TO OT Mental Status/Objective Patient Orientation: Person, Place, Situation Attachments: IV, Telemetry Current Upper Extremity ROM BUE ROM WFLS Upper Extremity Coordination INTACT Upper Extremity Sensation INTACT Upper Extremity Strength 4/5 GROSSLY ADL-Treatment Eating (QC): 6 Oral Hygiene (QC): 5 Shower/Bathe Self (QC): 7 Upper Body Dressing (QC): 4 Lower Body Dressing (QC): 4 On/Off Footwear (QC): 4 Toileting Hygiene (QC): 5 (USED icu TOILET, HYGIENE SET UP) Education OT Patient Education: Energy conservation, Modified ADL techniques, Progress toward Goal/Update tx plan, Purpose of tx/functional activities, Reviewed precautions, Rehab process, Safety issues, Transfer techniques, Use of adapted equipment Teaching Recipient: Patient Teaching Methods: Demonstration Response to Teaching: Verbalize Understanding, Reinforcement Needed OT Surgical Manager Goals Senior Living Goals Eating (QC): 6 Oral Hygiene (QC): 6 Toileting Hygiene (QC): 6 Shower/Bathe Self (QC): 6 Upper Body Dressing (QC): 6 Lower Body Dressing (QC): 6 On/Off Footwear (QC): 6 1=Demonstrate adherence to instructed precautions during ADL tasks. 2=Patient will verbalize/demonstrate understanding of assistive devices/modifications for ADL. 3=Patient will improve strength/tolerance for activity to enable patient to perform ADL's. OT Education/Plan Problem List/Assessment Assessment: Decreased Activ Tolerance, Impaired Self-Care Skills Discharge Recommendations Plan/Recommendations: Continue POC Treatment Plan/Plan of Care Treatment,Training & Education: Yes Patient would benefit from OT for education, treatment and training to promote independence in ADL's, mobility, safety and/or upper extremity function for ADL's. Plan of Care: ADL Retraining, Functional Mobility, Group Exercise/Act as Ind, UE Funct Exercise/Act Treatment Duration: Jul 27, 2022 Frequency: 3 times per week (3-5 TIMES PER WEEK) Estimated Hrs Per Day: .25 hour per day Agreement: Yes Rehab Potential: Good Time Start Time: 11:30 Stop Time: 11:47 DATE: Jul 18, 2022 Total Time Billed (hr/min): 17 Billed Treatment Time EVM 17 MIN ODETTE COOL OT Jul 18, 2022 11:47
[2022-07-18] MEDS ORDERED: IBUP-2473 PO (11:56)
[2022-07-18] MEDS ORDERED: METO-333 PO (11:56)
[2022-07-18] MEDS ORDERED: ASPI-1238 PO (11:56)
[2022-07-18] MEDS ORDERED: ATOR40TA70 PO (11:56)
--- NOTE | 2022-07-18 14:08 | History & Physical-Hospitalist ---
RODRIGO LAY 07/18/22 1408: History of Present Illness HPI/Chief Complaint This patient is a 61 year old female with a past medical history significant for DM type 2, CAD, CVA, COPD, HTN, Cdiff, PE, and seizures who presented to the ED yesterday with Complaints of Diarrhea and Gas. She was recently here from 06/07- 06/11 for sepsis, UTI, and Cdiff at that time. She was discharged [place] on a oral vancomycin and ceprofloxacin regmin. She reports taking these as prescribed. She was again seen in the ED on 07/05 for CP and was transfered to [place] on levo d rip at that time. Per the patient it was deemed she had a TIA and no interventions were required. Information is overall difficult to obtain from the patient due to her being a poor historian and frequently changed answers as noted in her ED report. In the ED this time, she met sepsis criteria with tachycardia (110bpm) and leukocytosis (20.4). Her LA was normal and AG only mildly elevated at 16. Her ABG was 7.37|32|86. Urine revealed 2+ protein, trace leuk/RBC, and few bacteria. CT abd/pelvis revealed no acute abnormalities. This morning she reports continued N/V, fatigue, and LLQ abd pain. Her WBC has improved to 15.2 but her K+ is now 3.0. Source: patient, old records Date Seen 07/18/22 Time Seen by a Provider: 09:00 Attending Physician Twyla Calix MD PCP Admitting Physician: Radha Voss DO Attending Physician: Radha Voss DO Referring Physician Date of Admission Jul 17, 2022 at 21:47 Home Medications & Allergies Home Medications Reviewed patient Home Medication Reconciliation performed by pharmacy medication reconciliations lawn technician and/or nursing. Patients Allergies have been reviewed. Allergies Allergies Coded Allergies sulfamethoxazole (Verified Allergy, Intermediate, VOMITTING/MIGRAINE, 07/17/22) trimethoprim (Verified Allergy, Intermediate, VOMITTING/MIGRAINE, 07/17/22) diphenhydramine (Verified Allergy, Unknown, 07/17/22) pentazocine (Unverified Adverse Reaction, Mild, N/V, HEAD ACHE, 07/17/22) Past Vhdvxbe-Klkisc-Agwcqy Hx Patient Social History Tobacco Use?: Yes Tobacco type used: Cigarettes Smoking Status: Current Everyday Smoker Use of E-Cig and/or Vaping dev: No Substance use?: No Alcohol Use?: No Pt feels they are or have been: No Immunizations Up To Date Date of Influenza Vaccine: Dec 29, 2019 Tetanus Booster (TDap): Unknown Hepatitis A: No Hepatitis B: No PED Vaccines UTD: No Date of Pneumonia Vaccine: May 01, 2015 Seasonal Allergies Seasonal Allergies: Yes Current Status status: No status: No Advance Directives: No Communicates: Verbally Primary Language: Pakistani Preferred Spoken Language: Pakistani Sensory deficits: Vision impairment Implanted or Applied Medical D: None, Stents Past Medical History Surgeries: Abdominal (Hx colon resection), Appendectomy, Gallbladder, Hysterectomy, Oophorectomy Asthma, Pneumonia, Pulmonary Embolism, COPD Currently Using CPAP: No Currently Using BIPAP: No Coronary Artery Disease, Hypertension Seizure Disorder, Stroke 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 Sexually Transmitted Disease: No HIV/AIDS: No Kidney Infection, Kidney Stones, Renal Failure Gastroesophageal Reflux, Diverticulosis, C-Diff, Gall Bladder Disease Degenerate Disk Disease, Chronic Back Pain Diabetes, Insulin dep Glaucoma Loss of Vision: Denies Hearing Impairment: Denies Cervical Did You Recieve Any Treatments: Yes What Type of Treatment Did You: Surgical Intervention Anxiety, Depression Blood Disorders: Yes (hx of anemia) Adverse Reaction/Blood Tranf: No Family Medical History CANCER 19 MOTHER (PATIENT DOES NOT KNOW LOCATION) Heart Disease, Cancer SOCIAL HISTORY: -SMOKES 1 PPD -DENIES ETOH USE -DENIES DRUG USE PAST SURGICAL HISTORY: -BREAST BIOPSY -APPENDECTOMY -CHOLECYSTECTOMY -HYSTERECTOMY / BILATERAL SALPINGO-OOPHORECTOMY -CARDIAC CATHS --WV WITH ANGIOPLASTY AND STENTS X 2 TO LEFT CIRCUMFLEX AND ANGIOPLASTY TO LAD 10/2014 -COLON RESECTION WITH COLOSTOMY FOR PERFORATED DIVERTICULUM 05/2014, AND LATER REVERSAL 07/2014 -EGD'S AND COLONOSCOPIES -CARDIAC CATH 10/04/[address] WILSON: CONCLUSION: 1. Patent stent in the left main extending to the circumflex artery that is a dominant artery with excellent flow distally 2. Mild to moderate disease in the LAD nonobstructive disease, ostial LAD has about 40 to 50% stenosis nonobstructive disease 3. Mildly elevated left ventricular end-diastolic pressure DISCUSSION AND RECOMMENDATION: Continue to maximize medical therapy Review of Systems Constitutional: No chills, No fever; other (fatigue) EENTM: No hearing loss, No vision loss Respiratory: No cough, No short of breath Cardiovascular: No chest pain, No palpitations Gastrointestinal: abdominal pain (LLQ abd pain), diarrhea, nausea; No vomiting Genitourinary: No dysuria, No hematuria Musculoskeletal: no symptoms reported Skin: no symptoms reported Psychiatric/Neurological: No Symptoms Reported Physical Exam Physical Exam Vital Signs Vital Signs - First Documented 07/17/22 07/17/22 18:00 22:12 Temp 36.7 Pulse 110 Resp 18 B/P (MAP) 100/70 (80) Pulse Ox 93 O2 Delivery Room Air FiO2 21 Capillary Refill : Less Than 3 Seconds Height, Weight, BMI Height: 5'2.00" Weight: 164lbs. 0.0oz. 74.916661by; 26.52 BMI Method:Stated General Appearance: No Apparent Distress, WD/WN, Other (Patient would hardly open her eyes when answering my questions and would fall asleep between questions) Eyes: Bilateral Eye PERRL, Bilateral Eye EOMI HEENT: PERRL/EOMI, Pharynx Normal, Moist Mucous Membranes Respiratory: Chest Non Tender, Lungs Clear, Normal Breath Sounds, No Accessory Muscle Use Cardiovascular: Regular Rate, Rhythm, No Murmur, Normal Peripheral Pulses Gastrointestinal: Normal Bowel Sounds, Soft, Tenderness (mild LLQ tenderness) Back: No CVA Tenderness, No Vertebral Tenderness Extremity: Normal Capillary Refill, Non Tender, No Calf Tenderness, No Pedal Edema Neurologic/Psychiatric: Oriented x3, No Motor/Sensory Deficits Skin: Normal Color, Warm/Dry Lymphatic: No Adenopathy Results Results/Procedures Labs Laboratory Tests 07/17/22 18:41 07/18/22 04:39 Patient resulted labs reviewed. Imaging: Reviewed Imaging Films, Reviewed Imaging Report Imaging NAME: [facility] REC#: [id number] PT STATUS: REG ER : 1960 PHYSICIAN: CAMILLE GARDUNO DO ADMIT DATE: 07/17/22/ER Signed Date of Exam:07/17/22 CT ABDOMEN/PELVIS W PROCEDURE: CT abdomen and pelvis with contrast. TECHNIQUE: Multiple contiguous axial images were obtained through the abdomen and pelvis after administration of intravenous contrast. Auto Exposure Controls were utilized during the CT exam to meet ALARA standards for radiation dose reduction. All CT scans use one or more of the following dose optimizing techniques: automated exposure control, MA and/or KvP adjustment based on patient size and exam type or iterative reconstruction. INDICATION: Abdominal pain and diarrhea. FINDINGS: Lung bases are clear. Liver appears normal. The gallbladder is surgically absent. Pancreas appears normal. Spleen is not enlarged. Adrenals are normal. Kidneys appear normal. There is some retained fluid in the small bowel but it does not appear to be obstructive. Colon is unremarkable. There is no evidence of appendicitis. Uterus is surgically absent. There is no intraperitoneal free air or free fluid. IMPRESSION: There are postsurgical changes in the abdomen. No acute abnormality is seen. Dictated by: Dictated on workstation # [id number] Dict: 07/17/221956 Trans: 07/17/222016 [id number] Interpreted by: RAMÍREZ WHYTE MD Electronically signed by: RAMÍREZ WHYTE MD 07/17/222016 Assessment/Plan Admission Diagnosis Sepsis second to UTI vs. C dif Assessment and Plan Sepsis 2nd to UTI vs Cdiff -Meets SIS criteria with tachycardia and leukocytosis upon admission. -Due to recent C diff and abx as well as the need for abx to treat UTI, will continue Vancomycin 125mg PO Q6hr for Cdiff. -Due to poor GI absorption will begin Ceftriaxone 1g IV Q24 for UTI coverage. Cultures pending. Leukocytosis -WBC 20.4 on admission. Improved to 15.2 after IVF and antibiotics. Will c ontinue to monitor. Likely secodn to cdiff and/or UTI. HX CAD -Continue home medications HTN -Hold home medications and monitor at this time. Restart as necessary. HLD DM type 2 -Insulin Sliding Scale as needed Hx CVA -On ASA COPD -Neb breathing treatments DVT proph: lovenox Diet: as tolerated RADHA VOSS DO 07/19/22 0449: History of Present Illness Source: patient Past Epruyjm-Mlyfja-Mohpig Hx Family Medical History CANCER 19 MOTHER (PATIENT DOES NOT KNOW LOCATION) Review of Systems Constitutional: see HPI Physical Exam Physical Exam General Appearance: No Apparent Distress, Chronically ill Respiratory: Lungs Clear, Normal Breath Sounds Cardiovascular: Regular Rate, Rhythm Assessment/Plan Admission Diagnosis Admission Status: Observation Supervisory-Addendum Brief Verification & Attestation Participated in pt care: history, MDM, physical Personally performed: exam, history, MDM, supervision of care Care discussed with: Medical Student Procedures: n/a Results interpretation: Verified all documentation Verification and Attestation of Medical Student E/M Service A medical student performed and documented this service in my presence. I revi ewed and verified all information documented by the medical student and made modifications to such information, when appropriate. I personally performed the physical exam and medical decision making. Radha Voss, Jul 19, 2022,04:49 RODRIGO LAY Jul 18, 2022 14:08 RADHA VOSS DO Jul 19, 2022 04:49
[2022-07-18 19:56] VITALS: BP 113/55
[2022-07-18] MEDS: ENOXAPARIN 40 MG/0.4 ML (LOVENOX) SYR SC SCH (20:27)
[2022-07-18 23:20] VITALS: BP 127/58
[2022-07-19 03:55] VITALS: BP 126/59
[2022-07-19] MEDS: NS IV 1000 ML 1,000 ML IV SCH ×2 (04:00→14:11)
[2022-07-19] MEDS: VANCOMYCIN 125 MG CAPSULE PO SCH (05:13)
[2022-07-19 05:49] LABS: BASOPHILS # (AUTO) 0.1 10^3/uL (0.0-0.1); BASOPHILS % (AUTO) 1 % (0-10); EOSINOPHILS # (AUTO) 0.1 10^3/uL (0.0-0.3); EOSINOPHILS % (AUTO) 2 % (0-10); HEMATOCRIT 31 % (35-52); HEMOGLOBIN 11.1 g/dL (11.5-16.0); LYMPHOCYTES # (AUTO) 2.8 10^3/uL (1.0-4.0); LYMPHOCYTES % (AUTO) 33 % (12-44); MEAN CORPUSCULAR HEMOGLOBIN 32 pg (25-34); MEAN CORPUSCULAR HGB CONC 35 g/dL (32-36); MEAN CORPUSCULAR VOLUME 91 fL (80-99); MEAN PLATELET VOLUME 9.5 fL (9.0-12.2); MONOCYTES # (AUTO) 0.8 10^3/uL (0.0-1.0); MONOCYTES % (AUTO) 9 % (0-12); NEUTROPHILS # (AUTO) 4.6 10^3/uL (1.8-7.8); NEUTROPHILS % (AUTO) 55 % (42-75); PLATELET COUNT 465 10^3/uL (130-400); WHITE BLOOD COUNT 8.3 10^3/uL (4.3-11.0)
[2022-07-19 06:06] LABS: ALBUMIN 3.1 GM/DL (3.2-4.5); POTASSIUM 3.1 MMOL/L (3.6-5.0)
[2022-07-19 06:07] LABS: CALCIUM 8.3 MG/DL (8.5-10.1)
[2022-07-19 06:08] LABS: TOTAL PROTEIN 5.9 GM/DL (6.4-8.2)
[2022-07-19 06:10] LABS: BILIRUBIN,TOTAL 0.3 MG/DL (0.1-1.0)
[2022-07-19 06:12] LABS: CREATININE SERUM 0.64 MG/DL (0.60-1.30)
[2022-07-19 07:20] VITALS: BP 112/58
[2022-07-19] MEDS: DOCUSATE SODIUM 100 MG (COLACE) CAP PO SCH (09:21)
[2022-07-19] MEDS: SENNOSIDES 8.6 MG (SENOKOT) TAB PO SCH (09:21)
[2022-07-19] MEDS: cefTRIAXone IV/IM 1,000 MG in NS (IVPB) 50 ML IV SCH (09:22)
--- NOTE | 2022-07-19 10:12 | Physical Therapy Daily Note ---
PT Daily Note-Current Subjective Patient agrees to PT. Pain Numeric Pain Scale: 0-No Pain Location: No Pain Reported Section J - Health Conditions 1. Rarely or not at all 2. Occasionally 3. Frequently 4. Almost constantly 8. Unable to answer Pain Effect on Sleep: 1 Pain Interference with Therapy: 1 Pain Interference w/Day-to-Day: 1 Mental Status Patient Orientation: Normal For Age Attachments: IV Transfers SCALE: Activities may be completed with or without assistive devices. 9-Ofljlincqh-mbwhcxx completes the activity by him/herself with no assistance from a helper. 5-Set-up or Clean-up Assistance-helper sets up or cleans up; patient completes activity. [place] assists only prior to or following the activity. 4-Supervision or Touching Assistance-helper provides verbal cues and/or touching/steadying and/or contact guard assistance as patient completes activity. Assistance may be provided throughout the activity or intermittently. 3-Partial/Moderate Assistance-helper does LESS THAN HALF the effort. [place] lifts, holds or supports trunk or limbs, but provides less than half the effort. 2-Substantial/Maximal Assistance-helper does MORE THAN HALF the effort. [place] lifts or holds trunk or limbs and provides more than half the effort. 7-Wwakpqeit-nhsdrw does ALL the effort. Patient does none of the effort to complete the activity. Or, the assistance of 2 or more helpers is required for the patient to complete the activity. If activity was not attempted, code reason: 7-Patient Refused. 9-Not Applicable-not attempted and the patient did not perform the activity before the current illness, exacerbation or injury. 10-Not Attempted due to Environmental Limitations-(lack of equipment, weather restraints, etc.). 88-Not Attempted due to Medical Conditions or Safety Concerns. Lying to Sitting/Side of Bed(Q: 6 Sit to Stand (QC): 6 Chair/Hpo-gb-Aumsq Xfer(QC): 6 Gait Training Distance: 500' Walk 10 feet (QC): 6 Walk 50 ft with 2 Turns(QC): 6 Walk 150 ft (QC): 6 Gait Assistive Device: None safe and functional with Good balance Assessment Patient is currently at independent PLOF with all gross motor skills safely and does not require continued skilled therapy. PT to dismiss patient from services at this time. PT Care Home Goals Care Home Goals PT Superintendent Overhead Distribution Goals Time Frame: Jul 27, 2022 Roll Left & Right (QC): 6 Sit to Lying (QC): 6 Lying-Sitting on Side/Bed(QC): 6 Sit to Stand (QC): 6 Chair/Poq-vb-Buzta Xfer(QC): 6 Toilet Transfer (QC): 6 Walk 10 feet (QC): 6 Walk 50ft with 2 Turns (QC): 6 Walk 150 ft (QC): 6 PT Plan Treatment/Plan Treatment Plan: Discontinue PT, goals met Treatment Plan: Education, Functional Activity Frida, Functional Strength, Gait, Safety, Therapeutic Exercise, Transfers Treatment Duration: Jul 27, 2022 Frequency: 6 times per week Estimated Hrs Per Day: .25 hour per day Patient and/or Family Agrees t: Yes Time Time In: 950 Time Out: 1001 DATE: Jul 19, 2022 Total Billed Treatment Time: 11 Total Billed Treatment 1 visit FA 11 min SCOTT NUR PT Jul 19, 2022 10:12
--- NOTE | 2022-07-19 11:09 | Occupational Ther Daily Note ---
OT Current Status-Daily Note Subjective Waking when OT entered room, agreeable to OT Mental Status/Objective Patient Orientation: Person, Place, Time, Situation ADL-Treatment Therapy Code Descriptions/Definitions Functional [place] Measure: 0=Not Assessed/NA 4=Minimal Assistance 1=Total Assistance 5=Supervision or Setup 2=Maximal Assistance 6=Modified [place] 3=Moderate Assistance 7=Complete IndependenceSCALE: Activities may be completed with or without assistive devices. 8-Phcjbmlwxh-xhfipdm completes the activity by him/herself with no assistance from a helper. 5-Set-up or Clean-up Assistance-helper sets up or cleans up; patient completes activity. [place] assists only prior to or following the activity. 4-Supervision or Touching Assistance-helper provides verbal cues and/or touching/steadying and/or contact guard assistance as patient completes activity. Assistance may be provided throughout the activity or intermittently. 3-Partial/Moderate Assistance-helper does LESS THAN HALF the effort. [place] lifts, holds or supports trunk or limbs, but provides less than half the effort. 2-Substantial/Maximal Assistance-helper does MORE THAN HALF the effort. [place] lifts or holds trunk or limbs and provides more than half the effort. 5-Rupfrozyw-wjkrkx does ALL the effort. Patient does none of the effort to complete the activity. Or, the assistance of 2 or more helpers is required for the patient to complete the activity. If activity was not attempted, code reason: 7-Patient Refused. 9-Not Applicable-not attempted and the patient did not perform the activity before the current illness, exacerbation or injury. 10-Not Attempted due to Environmental Limitations-(lack of equipment, weather restraints, etc.). 88-Not Attempted due to Medical Conditions or Safety Concerns. Eating (QC): 6 Oral Hygiene (QC): 5 (standing at sink no ADS, SBA) Shower/Bathe Self (QC): 7 (declined however agreed to shower hiar cap and brushed own hair) Upper Body Dressing (QC): 5 Lower Body Dressing (QC): 5 On/Off Footwear: 6 Toileting Hygiene (QC): 5 Toilet Transfer (QC): 5 Request new brief to change daily for hygiene Education OT Patient Education: Correct positioning, Modified ADL techniques, Progress toward Goal/Update tx plan, Purpose of tx/functional activities, Reviewed precautions, Safety issues, Transfer techniques Teaching Recipient: Patient Teaching Methods: Demonstration, Discussion Response to Teaching: Verbalize Understanding, Return Demonstration OT Data Analysis Manager Goals Data Analysis Manager Goals Eating (QC): 6 Oral Hygiene (QC): 6 Toileting Hygiene (QC): 6 Shower/Bathe Self (QC): 6 Upper Body Dressing (QC): 6 Lower Body Dressing (QC): 6 On/Off Footwear (QC): 6 1=Demonstrate adherence to instructed precautions during ADL tasks. 2=Patient will verbalize/demonstrate understanding of assistive devices/modifications for ADL. 3=Patient will improve strength/tolerance for activity to enable patient to perform ADL's. OT Education/Plan Problem List/Assessment Assessment: Decreased Activ Tolerance, Impaired Self-Care Skills Discharge Recommendations Plan/Recommendations: Continue POC Treatment Plan/Plan of Care Patient would benefit from OT for education, treatment and training to promote independence in ADL's, mobility, safety and/or upper extremity function for ADL's. Plan of Care: ADL Retraining, Functional Mobility, Group Exercise/Act as Ind, UE Funct Exercise/Act Treatment Duration: Jul 27, 2022 Frequency: 3 times per week (3-5 TIMES PER WEEK) Estimated Hrs Per Day: .25 hour per day Agreement: Yes Rehab Potential: Good Time Start Time: 09:30 Stop Time: 10:01 DATE: Jul 19, 2022 Total Time Billed (hr/min): 31 Billed Treatment Time ADL 31 min ODETTE COOL OT Jul 19, 2022 11:09
[2022-07-19] MEDS ORDERED: KCL 20 MEQ TAB (K-DUR) PO NR (11:30)
[2022-07-19 11:45] VITALS: BP 118/63
[2022-07-19] MEDS ORDERED: CEFD300C3 PO (12:16)
[2022-07-19] MEDS ORDERED: VANC125C5 PO (12:16)
[2022-07-19] MEDS ORDERED: POTA10CA44 PO (12:16)
--- NOTE | 2022-07-19 12:17 | D/C HH Face to Face Order ---
D/C HH Face to Face Orders Reconcile Patient Problems Problems Reviewed?: Yes Instructions for Patient HH Patient Instructions/FollowUp: PCP 1 week Physician to follow Patient: [facility] Discharge Diet for Home: No Restrictions Patient Problems: Debility Patient Data-Allergies,Ht & Wt Patient Allergies: Coded Allergies: sulfamethoxazole (Verified Allergy, Intermediate, VOMITTING/MIGRAINE, 07/17/22) trimethoprim (Verified Allergy, Intermediate, VOMITTING/MIGRAINE, 07/17/22) diphenhydramine (Verified Allergy, Unknown, 07/17/22) pentazocine (Unverified Adverse Reaction, Mild, N/V, HEAD ACHE, 07/17/22) Height (Feet): 5 Height (Inches): 2.00 Weight (Pounds): 164 Weight (Ounces): 0.0 Home Health Need/Face to Face Date of Face to Face: Jul 19, 2022 Clinical Findings: Generalized weakness and fatigue, Instability, Muscle weakness I have seen Pt mway-et-fhsy: Yes Discharged To: Home Diagnosis/Conditions: Debility Patient is Homebound due to: Jacqui fall risk due to instabilty, Muscle weakness Homebound Status Due to the above stated illness, injury or surgical procedure (medical condition or diagnosis) and associated clinical findings, the patient is homebound because of his/her inability to leave home except with aid of a supportive device and/or person AND leaving the home requires a considerable and taxing effort or is medically contraindicated. Pt req the following assistanc: Walker Home Health Nursing Orders Home Health Services Order: Nursing Services, Mortgage Clerk-Evaluate & Junior at, Physical Therapy-Evaluate & Treat Certify Stmt I certify that this patient is under my care and that I, a nurse practitioner or a physician; a central supply assistant working with me, had a face to face encounter that - meets the physician face to face encounter requirements with this patient as dated. TYSHAWN VOSS DO Jul 19, 2022 12:17
--- NOTE | 2022-07-19 12:17 | Discharge Summary ---
"Discharge Summary Hospital Course Was the Problem List Reviewed?: Yes Problems/Dx: (1) Hypokalemia Status: Resolved (2) UTI (urinary tract infection) Status: Acute Hospital Course Date of Admission: Jul 17, 2022 at 21:47 Admission Diagnosis : Family Physician/Provider: Twyla Calix MD Date of Discharge: 07/19/22 Discharge Diagnosis: [ ] Hospital Course: Hospital Course This patient is a 61 year old female who was admitted to [facility] for observation from 07/17-07/19 due to Diarrhea, dehydration, sepsis, UTI, and what was thought to be Cdiff. Her symptoms had began 7 days prior. Recent medical history was significant for hospital stay 06/07-06/11 for Sepsis, UTI, and cdiff as well as a stay at [place] for TIA on 07/05. In the ED she had tachycardia (110) and leukocytosis (20.4). Her ABG was 7.37|32|86. Urine revaled 2+ protein, trace Leuk/RBC, and few bacteria. CT abd/pelvis reveled no acute abnormalities. As of 07/19 her preliminary Urine culture revealed klebsiella pneumoniae with sensitivities pending. She was treated with Rocephin 1g Q24hr IV. Due to frequent diarrhea in the setting of recent cdiff she was started on vancomycin 125mg Q6hr PO and stool sample was collected which eventually revealed negative for C diff Toxin A/B and GDH antigen. Vancomycin was continued for preventative measures. Peripheral blood cultures obtained on admission had no growth. By 07/19 she was feeling much better and had no complaints on ROS other than diarrhea and increased urine frequency. It was deemed she was safe to finish treatment in the outpatient setting with continued abx for UTI and Cdiff prevention. It is thought that some of patients Diarrhea may be due to a Viral GI infection that can be managed supportively. RODRIGO LAY Jul 19, 2022 12:27 Labs and Pending Lab Test: Laboratory Tests 07/19/22 05:43: White Blood Count 8.3, Red Blood Count 3.46L, Hemoglobin 11.1L, Hematocrit 31L, Mean Corpuscular Volume 91, Mean Corpuscular Hemoglobin 32, Mean Corpuscular Hemoglobin Concent 35, Red Cell Distribution Width 12.8, Platelet Count 465H, Mean Platelet Volume 9.5, Immature Granulocyte % (Auto) 0, Neutrophils (%) (Auto) 55, Lymphocytes (%) (Auto) 33, Monocytes (%) (Auto) 9, Eosinophils (%) (Auto) 2, Basophils (%) (Auto) 1, Neutrophils # (Auto) 4.6, Lymphocytes # (Auto) 2.8, Monocytes # (Auto) 0.8, Eosinophils # (Auto) 0.1, Basophils # (Auto) 0.1, Immature Granulocyte # (Auto) 0.0, Sodium Level 141, Potassium Level 3.1L, Chloride Level 114H, Carbon Dioxide Level 16L, Anion Gap 11, Blood Urea Nitrogen 5L, Creatinine 0.64, Estimat Glomerular Filtration Rate 100, BUN/Creatinine Ratio 8, Glucose Level 102, Calcium Level 8.3L, Corrected Calcium 9.0, Total Bilirubin 0.3, Aspartate Amino Transf (AST/SGOT) 40H, Alanine Aminotransferase (ALT/SGPT) 36, Alkaline Phosphatase 101, Total Protein 5.9L, Albumin 3.1L Microbiology 07/17/22 Fecal Leukocyte Stain - Final, Resulted 07/17/22 C. difficile GDH Antigen & Toxins - Final, Resulted 07/17/22 Stool Culture - Preliminary, Resulted Culture In Progress 07/17/22 Blood Culture - Preliminary, Resulted No growth 07/17/22 Urine Culture - Final, Complete Klebsiella pneumoniae Mixed Bacterial Rachael Home Meds Active Cefdinir 300 Mg Capsule 300 Mg PO BID Potassium Chloride 10 Meq Capsule.er 10 Meq PO DAILY Vancomycin HCl 125 Mg Capsule 125 Mg PO BID Reported Ibuprofen 200 Mg Tablet 400-600 Mg PO Q8H PRN Aspirin EC (Aspirin) 81 Mg Tablet.dr 81 Mg PO HS Metoprolol Tartrate 25 Mg Tablet 25 Mg PO HS Atorvastatin Calcium 40 Mg Tablet 40 Mg PO HS Tylenol Extra Strength (Acetaminophen) 500 Mg Tablet 1,000 Mg PO Q8H PRN Venlafaxine HCl ER (Venlafaxine HCl) 150 Mg Cap.er.24h 150 Mg PO HS LAST FILLED 05-17-2022 #30 DAY SUPPLY Budesonide-Formoterol 160-4.5 (Budesonide/Formoterol Fumarate) 160 Mcg-4.5 Mcg/Actuation Hfa.aer.ad 2 Puff INH BID LAST FILLED 05-20-2022 #04/29 DAY SUPPLY Ventolin Hfa (Albuterol Sulfate) 90 Mcg Hfa.aer.ad 2 Puff IH Q4H PRN Neurontin (Gabapentin) 300 Mg Capsule 300 Mg PO HS LAST FILLED 04-24-2022 #60/60 DAY SUPPLY Entresto 24 mg-26 mg Tablet (Sacubitril/Valsartan) 24 Mg-26 Mg Tablet 1 Ea PO HS LAST FILLED 11-15-2021 #180/180 DAY SUPPLY Assessment/Pt Instructions PCP 1 week Discharge Planning: <30 minutes discharge planning Discharge Physical Examination Vital Signs Vital Signs Date Time Temp Pulse Resp B/P (MAP) Pulse Ox O2 Delivery O2 Flow Rate FiO2 07/19/22 10:41 97 Room Air 07/19/22 07:20 36.6 74 16 112/58 (76) 07/17/22 22:12 21 General Appearance: No Apparent Distress, WD/WN, Chronically ill Respiratory: Lungs Clear, Normal Breath Sounds Neurologic/Psychiatric: Alert, Oriented x3, No Motor/Sensory Deficits, Normal Mood/Affect Allergies: Coded Allergies: sulfamethoxazole (Verified Allergy, Intermediate, VOMITTING/MIGRAINE, 07/17/22) trimethoprim (Verified Allergy, Intermediate, VOMITTING/MIGRAINE, 07/17/22) diphenhydramine (Verified Allergy, Unknown, 07/17/22) pentazocine (Unverified Adverse Reaction, Mild, N/V, HEAD ACHE, 07/17/22) Discharge Summary Date of Admission Jul 17, 2022 at 21:47 Date of Discharge Discharge Date: Jul 19, 2022 Admission Diagnosis TYSHAWN VOSS DO Jul 19, 2022 12:17"
--- NOTE | 2022-07-19 12:27 | Progress Note ---
"RODRIGO LAY 07/19/22 1227: Progress Note Hospital Course This patient is a 61 year old female who was admitted to [facility] for observation from 07/17-07/19 due to Diarrhea, dehydration, sepsis, UTI, and what was thought to be Cdiff. Her symptoms had began 7 days prior. Recent medical history was significant for hospital stay 06/07-06/11 for Sepsis, UTI, and cdiff as well as a stay at [place] for TIA on 07/05. In the ED she had tachycardia (110) and leukocytosis (20.4). Her ABG was 7.37|32|86. Urine revaled 2+ protein, trace Leuk/RBC, and few bacteria. CT abd/pelvis reveled no acute abnormalities. As of 07/19 her preliminary Urine culture revealed klebsiella pneumoniae with sensitivities pending. She was treated with Rocephin 1g Q24hr IV. Due to frequent diarrhea in the setting of recent cdiff she was started on vancomycin 125mg Q6hr PO and stool sample was collected which eventually revealed negative for C diff Toxin A/B and GDH antigen. Vancomycin was continued for preventative measures. Peripheral blood cultures obtained on admission had no growth. By 07/19 she was feeling much better and had no complaints on ROS other than diarrhea and increased urine frequency. It was deemed she was safe to finish treatment in the outpatient setting with continued abx for UTI and Cdiff prevention. It is thought that some of patients Diarrhea may be due to a Viral GI infection that can be managed supportively. RADHA VOSS DO 07/19/22 5524: Supervisory-Addendum Brief Verification & Attestation Participated in pt care: history, MDM, physical Personally performed: exam, history, MDM, supervision of care Care discussed with: Medical Student Procedures: n/a Results interpretation: Verified all documentation Verification and Attestation of Medical Student E/M Service A medical student performed and documented this service in my presence. I reviewed and verified all information documented by the medical student and made modifications to such information, when appropriate. I personally performed the physical exam and medical decision making. Radha Voss Jul 19, 2022,16:54 RODRIGO LAY Jul 19, 2022 12:27 RADHA VOSS DO Jul 19, 2022 16:54"
[2022-07-19 15:04] VITALS: BP 118/63
[2022-07-19] MEDS ORDERED: VANCOMYCIN 125 MG CAPSULE PO SCH (21:00)
== END 2022-07-19 12:15 | disposition home health service (06) ==
LOC: EDUNIT# 17:58 → ER 18:00 → INTOOBSV 21:47 → UNDOADMOB 21:47 → ICU 21:47 → 4TH 07-18 16:30 → UNDODISOB 07-19 12:15
PROVIDERS: ADMIT Internal Medicine; ATTEND Internal Medicine
DX: A41.9 Sepsis, unspecified organism (principal); N39.0 Urinary tract infection, site not specified; E87.6 Hypokalemia; D72.829 Elevated white blood cell count, unspecified; I25.10 Atherosclerotic heart disease of native coronary artery without angina pectoris; I10 Essential (primary) hypertension; E78.5 Hyperlipidemia, unspecified; E11.9 Type 2 diabetes mellitus without complications; J44.9 Chronic obstructive pulmonary disease, unspecified; R19.7 Diarrhea, unspecified; I63.9 Cerebral infarction, unspecified; Z79.82 Long term (current) use of aspirin; F17.210 Nicotine dependence, cigarettes, uncomplicated; Z79.899 Other long term (current) drug therapy; Z79.4 Long term (current) use of insulin; Z86.19 Personal history of other infectious and parasitic diseases
CPT/HCPCS: 36415; 36600; 74177; 80053; 81000; 82150; 82805; 83605; 83690; 83735; 85007; 85025; 85027; 85610; 85730; 87015; 87040; 87045; 87046; 87077; 87088; 87186; 87324; 87449; 87899; 89055; 93041; 94760; 96372; 96375; 96376; G0378

== ENCOUNTER 2022-08-21 05:37 | Outpatient (CLI) | payer MEDICARE, MEDICAID ==
[~2022-08-21] VITALS: Ht 157.5 cm; Wt 70.3 kg
[~2022-08-21 05:37] MED LIST changes: +ATOR40TA70 PO; +IBUP-2473 PO; +POTA10CA44 PO
[2022-08-21] MEDS ORDERED: NICO-685 TD (18:50)
[2022-08-21] MEDS ORDERED: FENO134C21 PO (18:50)
[2022-08-21] MEDS ORDERED: ONDA4TAB11 SL (18:50)
[2022-08-21] MEDS ORDERED: BUDE10.2 IH (18:50)
[2022-08-21] MEDS ORDERED: ROSU40TA23 PO (18:50)
== END 2022-08-21 18:52 ==
LOC: PREOP 05:37
PROVIDERS: ATTEND Surgery
DX: Z01.818 Encounter for other preprocedural examination (principal); Z86.010 Personal history of colon polyps

== ENCOUNTER 2022-09-16 09:33 | Day surgery (SDC) | payer MEDICARE, MEDICAID ==
[~2022-09-16] VITALS: Ht 157 cm; Wt 70.3 kg
[~2022-09-16 09:33] MED LIST changes: +BUDE10.2 IH; +NICO-685 TD; +ONDA4TAB11 SL; +ROSU40TA23 PO
[2022-09-16] MEDS ORDERED: LACTATED RINGERS 1,000 ML IV STA (09:38)
[2022-09-16] MEDS ORDERED: LACTATED RINGERS 1,000 ML IV ONE (09:49)
[2022-09-16 09:58] VITALS: BP 94/53
[2022-09-16] MEDS ORDERED: ONDANSETRON 4 MG/2 ML (SDV) Z0FRAN ONE ×2 (10:21→12:13)
[2022-09-16] MEDS ORDERED: ONDANSETRON 4 MG/2 ML (SDV) Z0FRAN IVP ONE (10:30)
[2022-09-16] MEDS ORDERED: PROPOFOL INJECTION 50 ML IV ONE (11:50)
[2022-09-16] MEDS ORDERED: PHENYLEPHRINE 100 MCG/ML 10 ML (ANESTHESIA) SYR ONE ×2 (12:13→13:57)
[2022-09-16] MEDS ORDERED: PHENYLEPHRINE INJ 10 MG/ML (FOR PYXIS KITS ONLY) ONE (12:13)
--- NOTE | 2022-09-16 12:19 | Progress Note-Post Operative ---
Post-Operative Progess Note Surgeon (s)/Freight Clerk (s) Surgeon DIGNA MARISCAL DO Freight Clerk: SANTOSH Aranda student Pre-Operative Diagnosis Hx of polyps Post-Operative Diagnosis Polyp int hemorrhoids Procedure & Operative Findings Date of Procedure 09/16/22 Procedure Performed/Findings Colonoscopy with snare polypectomy PROCEDURE NOTE: After informed consent was obtained, the patient was brought to the endoscopy suite, placed in bed in left lateral decubitus position. She was administered IV sedation by the KEY HOLDER who then monitored her vitals the entire time, heart rate, blood pressure and pulse ox and the scope was inserted, pushed all the way to about 100 cm and pushed into the cecum, tried to take a picture of appen diceal orifice, but it was covered with corn. Then slowly withdrew the scope insufflating to look circumferentially at the rai starting in the cecum, up the ascending colon to the hepatic flexure, then down the transverse colon, splenic flexure, into the descending colon; where I found a polyp. I took a picture of the polyp and then removed it with the snare. Continued down to the colonic anastomosis where I found another polyp and removed this with the snare. Finally as I pulled the scope out of the rectum I took a picture of the internal hemorrhoids. The patient tolerated the procedure. She was recovered in endoscopy suite. Recommended for repeat colonoscopy in 5 years. Anesthesia Type IV sedation by KEY HOLDER Estimated Blood Loss Estimated blood loss (mL): scant Specimens/Packing Specimens Removed descending colon polyp polyp at anastomosis DIGNA MARISCAL DO Sep 16, 2022 12:19
[2022-09-16 12:20] VITALS: BP 84/38
--- NOTE | 2022-09-16 12:20 | Endoscopy Discharge Instruct ---
Endo Procedure/Findings Findings 1.: Polyp 2.: Internal Hemorrhoids Discharge Instructions - Activity: You might feel a little sleepy until tomorrow. This is due to the medicine you received to relax you. Until tomorrow, you should: NOT drive a car, operate machinery or power tools. NOT drink any alcoholic beverages. NOT make any important decisions or sign importortant papers. Do not return to work until tomorrow, unless otherwise instructed. Resume previous activities tomorrow. Diet: Start by taking liquids. If you tolerate liquids, advance to solid food. 1.: Colonscopy in 5 years Notify Physician - If you experience excessive bleeding, unusual abdominal pain, fever, or chest pain, contact your doctor immediately. Follow-Up: Other Follow up in my office in one week DIGNA MARISCAL DO Sep 16, 2022 12:20
[2022-09-16 12:25] VITALS: BP 73/37
[2022-09-16 12:28] VITALS: BP 48/28
--- NOTE | 2022-09-16 12:28 | Anesthesia-General Post-Op ---
MAC Patient Condition Mental Status/LOC: Same as Preop Cardiovascular: Satisfactory Nausea/Vomiting: Absent Respiratory: Satisfactory Pain: Controlled Complications: Absent Post Op Complications Complications None Follow Up Care/Instructions Patient Instructions None needed. Anesthesiology Discharge Order Discharge Order Patient is doing well, no complaints, stable vital signs, no apparent adverse anesthesia problems. No complications reported per nursing. ASTRID MUSE CRNA Sep 16, 2022 12:28
== END 2022-09-16 14:18 | disposition home or self-care (01) ==
LOC: ENDO 09:33
PROVIDERS: ATTEND Surgery
DX: Z12.11 Encounter for screening for malignant neoplasm of colon (principal); D12.4 Benign neoplasm of descending colon; K63.5 Polyp of colon; K64.8 Other hemorrhoids; E11.9 Type 2 diabetes mellitus without complications; E66.9 Obesity, unspecified; Z68.28 Body mass index [BMI] 28.0-28.9, adult; F17.210 Nicotine dependence, cigarettes, uncomplicated; Z95.5 Presence of coronary angioplasty implant and graft; Z28.310 Unvaccinated for COVID-19
CPT/HCPCS: 82947; 88305